=== PATIENT | male | born 1960 | race Caucasian/White ===

== ENCOUNTER 2018-07-18 20:22 | Inpatient (IN) | payer BC, MEDICARE, OTHER ==
[~2018-07-18] VITALS: Ht 182.9 cm; Wt 87.1 kg
[2018-07-18] MEDS ORDERED: DOCU100C28 PO (20:56)
[2018-07-18] MEDS ORDERED: CLOT15CR4 TP (20:56)
[2018-07-18] MEDS ORDERED: TRAM50TA PO (20:56)
[2018-07-18] MEDS ORDERED: MAG355OR11 PO (20:56)
[2018-07-18] MEDS ORDERED: CLON0.1T PO (20:56)
[2018-07-18] MEDS ORDERED: THIA100T43 PO (20:56)
[2018-07-18] MEDS ORDERED: CHOL100013 PO (20:56)
[2018-07-18] MEDS ORDERED: FOLI1TAB16 PO (20:56)
[2018-07-18] MEDS ORDERED: LISI2.5T PO (20:56)
[2018-07-18] MEDS ORDERED: TRAZ-86 PO (20:56)
[2018-07-18] MEDS ORDERED: LINA290C PO (20:56)
[2018-07-18] MEDS ORDERED: HYDR50TA PO (20:56)
[2018-07-18] MEDS ORDERED: CAPS60CR2 TP (20:56)
[2018-07-18] MEDS ORDERED: CARB1TAB2 PO (20:56)
[2018-07-18] MEDS ORDERED: CARB1TAB22 PO (20:56)
[2018-07-18] MEDS ORDERED: ACET500T68 PO (20:56)
[2018-07-18] MEDS ORDERED: FAMO20TA5 PO (20:56)
[2018-07-18] MEDS ORDERED: QUET200T4 PO (20:56)
[2018-07-18] MEDS ORDERED: LAMO200T2 PO (20:56)
[2018-07-18] MEDS ORDERED: DULO60CA6 PO (20:56)
[2018-07-18] MEDS ORDERED: MULT-114 PO (20:56)
[2018-07-18] MEDS ORDERED: METF500T16 PO (20:56)
[2018-07-18] MEDS ORDERED: BUSP15TA PO (20:56)
[2018-07-18] MEDS ORDERED: OMEG-33 PO (20:56)
[2018-07-18] MEDS ORDERED: ATOR40TA59 PO (20:56)
[2018-07-18] MEDS ORDERED: MIRT7.5T8 PO (20:56)
[2018-07-18] MEDS ORDERED: BUSP5TAB PO (20:56)
[2018-07-18] MEDS ORDERED: QUET25TA PO (20:56)
[2018-07-18] MEDS ORDERED: ASPI-630 PO (20:56)
[2018-07-18] MEDS ORDERED: PROP10TA PO (20:56)
[2018-07-18] MEDS ORDERED: ATOR20TA58 PO (22:00)
[2018-07-18] MEDS ORDERED: MAG HYDROX/AL HYDROX/SIMETH 30 ML ORAL.SUSP PO PRN (23:00)
[2018-07-18] MEDS ORDERED: cloNIDine HCL 0.1 MG TABLET PO PRN (23:00)
[2018-07-18] MEDS ORDERED: CLOTRIMAZOLE 1% TOPICAL CREAM 30GM TUBE. TP PRN (23:00)
[2018-07-18] MEDS ORDERED: traMADol 50 MG TABLET PO PRN (23:00)
[2018-07-18] MEDS ORDERED: ACETAMINOPHEN 500 MG TABLET PO PRN (23:00)
[2018-07-18] MEDS ORDERED: DOCUSATE SODIUM 100 MG CAPSULE PO PRN (23:00)
[2018-07-18] MEDS ORDERED: MAGNESIUM HYDROXIDE 2,400 MG/30 ML ORAL.SUSP. PO PRN (23:00)
[2018-07-18] MEDS ORDERED: QUEtiapine 25 MG TABLET. PO PRN (23:00)
[2018-07-18] MEDS ORDERED: CAPSAICIN 0.025% TOPICAL CREAM 60GM TUBE. TP PRN (23:00)
[2018-07-18 23:12] VITALS: BP 116/80
[2018-07-18] MEDS: PROPRANOLOL 10 MG TABLET. PO SCH ×2 (23:30→23:46)
[2018-07-18] MEDS: ATORVASTATIN CALCIUM 20 MG TABLET PO SCH (23:45)
[2018-07-18] MEDS: busPIRone 5 MG TABLET. PO SCH ×2 (23:45)
[2018-07-18] MEDS: traZODone 100 MG TABLET. PO PRN (23:46)
[2018-07-18] MEDS: CARBIDOPA/LEVODOPA 25/100MG TABLET PO SCH (23:46)
[2018-07-18] MEDS: lamoTRIgine 100 MG TABLET. PO SCH (23:46)
[2018-07-18] MEDS: DULoxetine HCL 60 MG CAPSULE.DR PO SCH (23:46)
[2018-07-18] MEDS: MIRTAZAPINE 7.5 MG TABLET. PO SCH (23:46)
[2018-07-18] MEDS: FAMOTIDINE 20 MG TABLET PO SCH (23:46)
[2018-07-18] MEDS: QUEtiapine 100 MG TABLET. PO SCH (23:48)
--- NOTE | 2018-07-19 00:13 | NUR ---
Admission Note with Justification for Admission to [facility] Patient admitted to [facility] for protective oversight for emergency stabilization of acute psychiatric crisis. Pt admitted from: [facility] ER Mode of arrival: Secure Transport Accompanied By: Secure Transport Precipitating behaviors that initiated intake and admission: SI, attempted to jump through a window at his nursing facility in an attempt to jump. Description of failure of out patient attempts at stabilization in previous setting list behavior and medication trials: medication adjustments, multiple previous inpatient psych stays at various facilities. Behaviors and assessment findings upon admission: Pt A/O x4, calm, pleasant, and answering questions appropriately. Pt states that he is unhappy at his current facility. He reports that he has spoken with facility staff about what he feels would make him happier at this facility, but the person he talked to was no longer working there after he returned from his inpatient psych stay at [facility]. He also reports his mind has been racing since being taken off of Klonopin and placed on Vistaril. His attempt to jump through the window at his facility, per his report, was to stop the racing thoughts and his ffeling Plan: Admit for protective oversight for adjustment and stabilization of medications, behaviors and mood. Intense treatment regimen including groups, medication adjustments, therapy, consistent regimen for ADL's, self care, and sleep hygiene. Daily monitoring by Inpatient staff, Psychiatry, and Medical Physician. Addendum: 07/19/18 at 0021 by JOSE LOO RN feeling of unhappiness. Pt states that he now knows this was not the best way in which to handle the situation.
[2018-07-19 06:24] VITALS: BP 101/62
[2018-07-19 07:54] LABS: BASO % 1 % (0-3); EOS # 0.2 x10^3/uL (0.0-0.7); EOS % 3 % (0-3); HEMATOCRIT 45.3 % (39.0-53.0); HEMOGLOBIN 15.9 g/dL (13.0-17.5); LYMPH % 29 % (24-48); MEAN CORPUSCULAR HEMOGLOBIN 32 pg (25-35); MEAN CORPUSCULAR HGB CONC 35 g/dL (31-37); MEAN CORPUSCULAR VOLUME 91 fL (79-100); MONO # 0.5 x10^3/uL (0.0-1.1); MONO % 7 % (0-9); NEUT # 4.3 x10^3uL (1.8-7.7); NEUT % 61 % (31-73); PLATELET COUNT 211 x10^3/uL (140-400); RED BLOOD COUNT 5.01 x10^6/uL (4.30-5.70); RED CELL DISTRIBUTION WIDTH 12.9 % (11.5-14.5); WHITE BLOOD COUNT 7.1 x10^3/uL (4.0-11.0)
[2018-07-19] MEDS: metFORMIN 500 MG TABLET PO SCH ×2 (08:00→18:06)
[2018-07-19 08:03] LABS: ALBUMIN 3.9 g/dL (3.4-5.0); ALBUMIN/GLOBULIN RATIO 1.2 (1.0-1.7); CREATININE 0.9 mg/dL (0.7-1.3); MAGNESIUM 1.9 mg/dL (1.8-2.4); POTASSIUM 3.6 mmol/L (3.5-5.1); TOTAL BILIRUBIN 0.4 mg/dL (0.2-1.0); TOTAL PROTEIN 7.1 g/dL (6.4-8.2)
[2018-07-19] MEDS: LISINOPRIL 2.5 MG TABLET PO SCH (08:04)
[2018-07-19] MEDS: FAMOTIDINE 20 MG TABLET PO SCH ×2 (08:04→20:12)
[2018-07-19] MEDS: PROPRANOLOL 10 MG TABLET. PO SCH ×2 (08:04→18:06)
[2018-07-19] MEDS: DULoxetine HCL 60 MG CAPSULE.DR PO SCH ×2 (08:05→20:12)
[2018-07-19] MEDS: MULTIVITAMIN with MINERAL TABLET. PO SCH (08:05)
[2018-07-19] MEDS: THIAMINE 100 MG TABLET. PO SCH (08:05)
[2018-07-19] MEDS: busPIRone 5 MG TABLET. PO SCH ×4 (08:05→20:12)
[2018-07-19] MEDS: CHOLECALCIFEROL (VITAMIN D3) 1,000 UNIT TABLET PO SCH (08:05)
[2018-07-19] MEDS: ASPIRIN 81 MG TAB.CHEW PO SCH (08:05)
[2018-07-19] MEDS: OMEGA-3 FATTY ACIDS/FISH OIL 1,000 MG CAPSULE. PO SCH (08:05)
[2018-07-19] MEDS: FOLIC ACID 1 MG TABLET PO SCH (08:05)
[2018-07-19] MEDS: LINACLOTIDE 145 MCG CAPSULE. PO SCH (08:08)
[2018-07-19] MEDS ORDERED: PROPRANOLOL HCL 10 MG PO SCH (09:00)
[2018-07-19] MEDS ORDERED: BUSPIRONE HCL 5 MG PO SCH (09:00)
[2018-07-19] MEDS ORDERED: NON FORMULARY ITEM (Duloxetine Hcl (Cymbalta) 60 MG) PO SCH (09:00)
[2018-07-19] MEDS ORDERED: BUSPIRONE HCL 15 MG PO SCH (09:00)
[2018-07-19] MEDS ORDERED: FAMOTIDINE 20 MG PO SCH (09:00)
[2018-07-19] MEDS ORDERED: CARBIDOPA/LEVODOPA 25/100MG TABLET PO SCH ×2 (09:00→21:00)
[2018-07-19] MEDS: hydrOXYzine HCL 25 MG TABLET PO PRN (09:26)
--- NOTE | 2018-07-19 10:30 | NUR ---
Behavior Intervention Response and Plan: BIRP Note: Behavior: Assumed Care of patient, patient located in Dining Room at shift change. Patient exhibited the following behavior Attention Seeking, Medication Seeking, Compliant. Brief assessment on rounds of vital signs, medication needs, lab studies, and pain. Treatment plan problems . Intervention: Patient assessed and the following interventions initiated safety checks 15 Minute Checks Cognitive Assessment , Head to toe Assessment , Medications. Response: After interactions and interventions patient responded in the following manner, Somatic , Anxious, compliant. Continue to assess behaviors and condition will continue to monitor throughout the shift as needed. Patient educated on ADL's, and hand hygiene. 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 Continue to assess patient for changes in above assessment. Monitor for medication needs, pain, and safety concerns. Hourly rounding performed to ensure safe environment.
[2018-07-19] MEDS: CARBIDOPA/LEVODOPA 25/100MG TABLET PO SCH ×3 (13:21→20:12)
[2018-07-19] MEDS: LORazepam 0.5 MG TABLET PO PRN ×2 (13:22→18:07)
[2018-07-19 13:30] LABS: THYROID STIM HORMONE (TSH) 2.272 uIU/mL (0.358-3.740)
[2018-07-19 15:58] VITALS: BP 109/76
--- NOTE | 2018-07-19 16:15 | NUR ---
pt up adl to meals. pt c/o severe anxiety. Dr alegria notified. order received for Ativan prn. Some relief noted.
[2018-07-19 18:10] LABS: THYROXINE 6.7 ug/dL (4.5-12.0)
[2018-07-19] MEDS: lamoTRIgine 100 MG TABLET. PO SCH (20:11)
[2018-07-19] MEDS: MIRTAZAPINE 7.5 MG TABLET. PO SCH (20:11)
[2018-07-19] MEDS: QUEtiapine 100 MG TABLET. PO SCH (20:12)
[2018-07-19] MEDS: ATORVASTATIN CALCIUM 20 MG TABLET PO SCH (20:12)
[2018-07-19] MEDS: traZODone 100 MG TABLET. PO PRN (20:13)
[2018-07-19] MEDS ORDERED: QUETIAPINE FUMARATE 200 MG PO SCH (21:00)
[2018-07-19] MEDS ORDERED: MIRTAZAPINE 7.5 MG TABLET. PO SCH (21:00)
[2018-07-19] MEDS ORDERED: ATORVASTATIN CALCIUM 20 MG TABLET PO SCH (21:00)
[2018-07-19] MEDS ORDERED: NON FORMULARY ITEM (Lamotrigine 200 MG) PO SCH (21:00)
--- NOTE | 2018-07-19 22:09 | NUR ---
Pt sitting in day room at shift change, interacting with peer. Pt calm, social, and pleasant this evening, denies anxiety at this time. Pt cooperative with assessment and compliant with medications.
--- NOTE | 2018-07-19 22:30 | CONS ---
DATE OF CONSULTATION: 07/19/2018 REASON FOR CONSULTATION: Medical management. HISTORY OF PRESENT ILLNESS: The patient is a 58-year-old male patient, a resident at [facility] [place], who apparently attempted suicide by jumping out of the window at [facility] [place]. The patient broke the window, but did not go all the way through. He reports pain in his head and his neck. He has few lacerations. By the time he arrived to the Emergency Room of [facility], he continued to be suicidal and he reports that he has attempted in the past. He has required inpatient psychiatric stabilization before and apparently was referred to [facility] for inpatient psychiatric stabilization. PAST MEDICAL HISTORY: Significant for Parkinson's disease, hyperlipidemia, hypertension and apparently depression with multiple suicidal ideation before. PAST SURGICAL HISTORY: Brain stimulator placement in 2008. He apparently has also arteriography; however, the patient did not remember why, has also a history of hernia repair. FAMILY HISTORY: His father has of chronic obstructive pulmonary disease. Mother has had heart disease and diabetes mellitus. SOCIAL HISTORY: He apparently is , currently lives in [facility] [place]. He used to live with his and his children. He apparently has obstructive sleep apnea and he has CPAP and/or BiPAP, requires a walker. He apparently has been a former smoker, started at the age of 17, stopped about the age of 19. He drinks 1-2 beers per year. He is currently on disability. ALLERGIES: HE IS ALLERGIC TO IODINATED CONTRAST, ORAL AND IV DYE AND PREDNISOLONE. MEDICATIONS: He is currently on following medications: He is on atorvastatin calcium 20 mg at bedtime, omega-3 fatty acid, fish oil 1000 mg soft gel daily, clonidine 0.1 mg twice a day, propranolol 10 mg twice a day, lisinopril 2.5 mg once a day, aspirin 81 mg once a day, tramadol 50 mg every 6 hours as needed, Tylenol 500 mg every 6 hours, lamotrigine 200 mg at bedtime, duloxetine 60 mg twice a day, mirtazapine 7.5 mg at bedtime, trazodone 100 mg at bedtime, Seroquel 200 mg at bedtime, Seroquel 12.5 mg every 8 hours. He is on buspirone 5 mg 3 times a day, hydroxyzine 50 mg every 8 hours, carbidopa/levodopa 25/100 two tablets at bedtime. He is on carbidopa/levodopa 1-1/2 tablet 3 times a day. He is on Maalox 30 mL every 4 hours as needed, Colace 100 mg twice a day, famotidine 20 mg twice a day, Linzess 290 mcg p.o. daily, metformin 500 mg twice a day, clotrimazole cream apply topically twice a day, capsaicin cream applied topically every 8 hours and folic acid 1 mg once a day, thiamine 100 mg once a day, cholecalciferol 1000 international unit once a day, multivitamin with tablet once a day with mineral once a day. REVIEW OF SYSTEMS: As per history of present illness. PHYSICAL EXAMINATION GENERAL: When I saw him this afternoon, he was sitting comfortably in his chair, eating his dinner, in no apparent distress. He was slightly pale, but no jaundice, cyanosis or thyromegaly. No jugular venous distention. No limb edema. VITAL SIGNS: His heart rate was 89, blood pressure was 109/76, temperature was 98.2, respiratory rate was 18 and oxygen saturation was 96%. HEAD, EYES, EARS, NOSE AND THROAT: Showed normocephalic, atraumatic. NECK: Supple. HEART: Showed normal first and second sounds. No gallop or murmur. CHEST: Clear to auscultation. No crepitation or rhonchi. ABDOMEN: Distended, soft, nontender. NEUROLOGIC: He was awake, alert, responding appropriately. All cranial nerves are intact. He has parkinsonian features. He is able to move all his extremities. He is able to walk with a walker. LABORATORY DATA: His lab work showed a serum sodium 142, potassium 3.6, chloride 103, bicarbonate 28, anion gap of 11, BUN 19, creatinine 0.9, estimated GFR was 87 mL per minute, his glucose 148, calcium was 9, magnesium was 1.9. Serum iron was 79, TIBC was 291 and iron saturation was 27. His total bilirubin, AST, ALT, alkaline phosphatase were normal. Total protein was 7.1, albumin was 3.9. Serum triglyceride were 89, total cholesterol was 84, LDL cholesterol was 23, VLDL was 17, HDL cholesterol was 44 and ratio 1. His TSH was 2.272. His white cell count was 7100, hemoglobin 15.9, hematocrit 44, MCV 91, and platelet count 211,000. IMPRESSION: In summary, this is a 58-year-old male patient with a past medical history significant for depression and Parkinson's disease, who was seen at [facility] Emergency Room after a suicide attempt. The patient tried to jump through the window at [facility] [place] in attempt to commit suicide. He broke the window, but did not go it all the way through. He reports pain in his head and his neck. He did sustain few lacerations and apparently he continued to be suicidal even after arrival to the Emergency Room. He apparently has had multiple attempts before, total of 11 in the past and has had psychiatric treatment in the past. [facility] for [facility] stabilization. Medically, he has multiple medical problems including Parkinson's disease, hypertension, hyperlipidemia, gastroesophageal reflux disease, chronic constipation; however, all his vital signs and his lab works are all seemed to be within acceptable range. He also has diabetes that seems to be reasonably controlled. His hemoglobin A1c is still pending at the time of this dictation. PLAN: My plan is obviously to review all his labs, are still pending and make any necessary recommendation. Thank you, Dr. Bey for allowing me to participate in the care of this patient. GRETEL TEJADA MD DR: OZ/parmjit JOB#: [id number] / [id number]
--- NOTE | 2018-07-19 22:41 | PDOC ---
Exam Note: Kal Note: Please also refer to the separate dictated note~for this date of service dictated separately. Discussed the patient with Nursing staff reviewed the chart.~Reviewed interim history and current functioning. Reviewed vital signs,~ Labs/ Radiology~and current medications noted below. Continue current treatment with the changes noted in the dictated addendum note Assessment: Vital Signs: Vital Signs Date Time Temp Pulse Resp B/P (MAP) Pulse Ox O2 Delivery O2 Flow Rate FiO2 07/19/18 18:06 89 109/76 07/19/18 15:58 98.2 18 96 07/19/18 06:24 Room Air Labs: Laboratory Tests Test 07/19/18 07:18 07/19/18 07:22 07/19/18 12:02 07/19/18 17:08 White Blood Count 7.1 x10^3/uL (4.0-11.0) Red Blood Count 5.01 x10^6/uL (4.30-5.70) Hemoglobin 15.9 g/dL (13.0-17.5) Hematocrit 45.3 % (39.0-53.0) Mean Corpuscular Volume 91 fL (79-100) Mean Corpuscular Hemoglobin 32 pg (25-35) Mean Corpuscular Hemoglobin Concent 35 g/dL (31-37) Red Cell Distribution Width 12.9 % (11.5-14.5) Platelet Count 211 x10^3/uL (140-400) Neutrophils (%) (Auto) 61 % (31-73) Lymphocytes (%) (Auto) 29 % (24-48) Monocytes (%) (Auto) 7 % (0-9) Eosinophils (%) (Auto) 3 % (0-3) Basophils (%) (Auto) 1 % (0-3) Neutrophils # (Auto) 4.3 x10^3uL (1.8-7.7) Lymphocytes # (Auto) 2.0 x10^3/uL (1.0-4.8) Monocytes # (Auto) 0.5 x10^3/uL (0.0-1.1) Eosinophils # (Auto) 0.2 x10^3/uL (0.0-0.7) Basophils # (Auto) 0.0 x10^3/uL (0.0-0.2) Sodium Level 142 mmol/L (136-145) Potassium Level 3.6 mmol/L (3.5-5.1) Chloride Level 103 mmol/L (98-107) Carbon Dioxide Level 28 mmol/L (21-32) Anion Gap 11 (6-14) Blood Urea Nitrogen 19 mg/dL (8-26) Creatinine 0.9 mg/dL (0.7-1.3) Estimated GFR (Cockcroft-Gault) 87.0 BUN/Creatinine Ratio 21 (6-20) H Glucose Level 148 mg/dL (70-99) H Calcium Level 9.0 mg/dL (8.5-10.1) Magnesium Level 1.9 mg/dL (1.8-2.4) Iron Level 79 ug/dL (65-175) Total Iron Binding Capacity 291 ug/dL (250-450) Iron Saturation 27 % (15-34) Total Bilirubin 0.4 mg/dL (0.2-1.0) Aspartate Amino Transferase (AST) 16 U/L (15-37) Alanine Aminotransferase (ALT) 32 U/L (16-63) Alkaline Phosphatase 83 U/L (46-116) Total Protein 7.1 g/dL (6.4-8.2) Albumin 3.9 g/dL (3.4-5.0) Albumin/Globulin Ratio 1.2 (1.0-1.7) Triglycerides Level 89 mg/dL (0-150) Cholesterol Level 84 mg/dL (0-200) LDL Cholesterol, Calculated 23 mg/dL (0-100) VLDL Cholesterol, Calculated 17 mg/dL (0-40) Non-HDL Cholesterol Calculated 40 mg/dL (0-129) HDL Cholesterol 44 mg/dL (40-60) Cholesterol/HDL Ratio 1.0 25-Hydroxy Vitamin D Total 29.8 ng/mL (30-100) L Thyroid Stimulating Hormone (TSH) 2.272 uIU/mL (0.358-3.740) Thyroxine (T4) 6.7 ug/dL (4.5-12.0) Total Triiodothyronine (TT3) 135 ng/dL (71-180) Treponema pallidum Antibody Nonreactive (Nonreactive) Glucose (Fingerstick) 139 mg/dL (70-99) H 123 mg/dL (70-99) H 121 mg/dL (70-99) H Current Medications: Meds: Current Medications Mirtazapine (Remeron) 7.5 mg HS PO ; Start 07/19/18 at 21:00; Stop 07/19/18 at 21:00; Status DC Non-Formulary Medication (Buspirone Hcl ) 5 mg TID PO ; Start 07/19/18 at 09:00 ; Stop 07/19/18 at 09:00; Status DC Non-Formulary Medication (Buspirone Hcl ) 15 mg TID PO ; Start 07/19/18 at 09:00 ; Stop 07/19/18 at 09:00; Status DC Non-Formulary Medication (Duloxetine Hcl (Cymbalta)) 60 mg BID PO ; Start at 09:00; Stop 07/19/18 at 09:00; Status DC Hydroxyzine HCl (Atarax) 50 mg PRN Q8HRS PRN PO ANXIETY / AGITATION Last administered on 07/19/18at 09:26; Start 07/18/18 at 23:00 Non-Formulary Medication (Lamotrigine ) 200 mg HS PO ; Start 07/19/18 at 21:00; Stop 07/19/18 at 21:00; Status DC Quetiapine Fumarate (SEROquel) 12.5 mg PRN Q8HRS PRN PO ANXIETY / AGITATION; Start 07/18/18 at 23:00 Non-Formulary Medication (Quetiapine Fumarate (Seroquel)) 200 mg HS PO ; Start 07/19/18 at 21:00; Stop 07/19/18 at 21:00; Status DC Trazodone HCl (Desyrel) 100 mg PRN QHS PRN PO INSOMNIA Last administered on at 20:13; Start 07/18/18 at 23:00 Atorvastatin Calcium (Lipitor) 20 mg QHS PO ; Start 07/19/18 at 21:00; Stop at 21:00; Status DC Carbidopa/Levodopa (Sinemet 25/100) 1.5 tab TID PO Last administered on at 08:05; Start 07/19/18 at 09:00; Stop 07/19/18 at 11:35; Status DC Carbidopa/Levodopa (Sinemet 25/100) 2 tab HS PO ; Start 07/19/18 at 21:00; Stop 07/19/18 at 21:00; Status DC Clonidine HCl (Catapres) 0.1 mg PRN BID PRN PO HYPERTENSION, SEE COMMENTS; Start 07/18/18 at 23:00 Tramadol HCl (Ultram) 50 mg PRN Q6HRS PRN PO PAIN; Start 07/18/18 at 23:00 Acetaminophen (Tylenol) 500 mg PRN Q6HRS PRN PO PAIN / TEMP; Start 07/18/18 at 23:00 Aspirin (Children'S Aspirin) 81 mg DAILYWBKFT PO Last administered on at 08:05; Start 07/19/18 at 08:00 Capsaicin (Zostrix) 1 peytno PRN Q8HRS PRN TP Joint Pain; Start 07/18/18 at 23:00 Vitamin D (Vitamin D3) 1,000 unit DAILY PO Last administered on 07/19/18at 08:05 ; Start 07/19/18 at 09:00 Clotrimazole (Lotrimin) 1 peyton PRN BID PRN TP RASH; Start 07/18/18 at 23:00 Docusate Sodium (Colace) 100 mg PRN BID PRN PO CONSTIPATION; Start 07/18/18 at 23:00 Non-Formulary Medication (Famotidine ) 20 mg BID PO ; Start 07/19/18 at 09:00; Stop 07/19/18 at 09:00; Status DC Folic Acid (Folic Acid) 1 mg DAILY PO Last administered on 07/19/18at 08:05; Start 07/19/18 at 09:00 Linaclotide (Linzess) 290 mcg DAILY07 PO Last administered on 07/19/18at 08:08; Start 07/19/18 at 07:00 Lisinopril (Prinivil) 2.5 mg DAILY PO Last administered on 07/19/18at 08:04; Start 07/19/18 at 09:00 Al Hydroxide/Mg Hydroxide (Mylanta Plus Xs) 30 ml PRN Q4HRS PRN PO DYSPEPSIA; Start 07/18/18 at 23:00 Metformin HCl (Glucophage) 500 mg BIDWMEALS PO Last administered on 07/19/18at 18:06; Start 07/19/18 at 08:00 Multivitamins/ Calcium (Thera-M Plus) 1 tab DAILY PO Last administered on 08:05; Start 07/19/18 at 09:00 Fish Oil (Fish Oil) 1,000 mg DAILY PO Last administered on 07/19/18 08:05; Start 07/19/18 at 09:00 Non-Formulary Medication (Propranolol Hcl ) 10 mg BID PO ; Start 07/19/18 at 09: 00; Stop 07/19/18 at 09:00; Status DC Thiamine HCl (Vitamin B-1) 100 mg DAILY PO Last administered on 07/19/18 08:05 ; Start 07/19/18 at 09:00 Magnesium Hydroxide (Milk Of Magnesia) 2,400 mg PRN QHS PRN PO CONSTIPATION; Start 07/18/18 at 23:00 Atorvastatin Calcium (Lipitor) 20 mg QHS PO Last administered on 07/19/18 20: 12; Start 07/18/18 at 23:30 Carbidopa/Levodopa (Sinemet 25/100) 2 tab HS PO Last administered on 07/19/18 20:12; Start 07/18/18 at 23:30 Mirtazapine (Remeron) 7.5 mg HS PO Last administered on 07/19/18 20:11; Start 07/18/18 at 23:30 Buspirone HCl (Buspar) 5 mg TID PO Last administered on 07/19/18 08:05; Start 07/18/18 at 23:30; Stop 07/19/18 at 11:35; Status DC Buspirone HCl (Buspar) 15 mg TID PO Last administered on 07/19/18 08:06; Start 07/18/18 at 23:30; Stop 07/19/18 at 11:35; Status DC Duloxetine HCl (Cymbalta) 60 mg BID PO Last administered on 07/19/18 20:12; Start 07/18/18 at 23:30 Famotidine (Pepcid) 20 mg BID PO Last administered on 07/19/18 20:12; Start at 23:30 Lamotrigine (LaMICtal) 200 mg HS PO Last administered on 07/19/18 20:11; Start 07/18/18 at 23:30 Propranolol HCl (Inderal) 10 mg BID PO ; Start 07/18/18 at 23:30; Stop 07/18/18 at 23:54; Status DC Quetiapine Fumarate (SEROquel) 200 mg HS PO Last administered on 07/19/18 20: 12; Start 07/18/18 at 23:30 Propranolol HCl (Inderal) 10 mg BID94 PO Last administered on 07/19/18 18:06; Start 07/19/18 at 09:00 Lorazepam (Ativan) 0.25 mg PRN Q4HRS PRN PO ANXIETY / AGITATION Last administered on 07/19/18 18:07; Start 07/19/18 at 10:45 Buspirone HCl (Buspar) 20 mg TID PO Last administered on 07/19/18 20:12; Start 07/19/18 at 14:00 Carbidopa/Levodopa (Sinemet 25/100) 1.5 tab TIDWMEALS PO Last administered on 18:07; Start 07/19/18 at 12:00 Active Scripts Active Reported Atorvastatin Calcium 20 Mg Tablet 20 Mg PO QHS B-1 (Thiamine HCl) 100 Mg Tablet 100 Mg PO DAILY Cypress 3 1,000 Mg Softgel (Cypress-3 Fatty Acids/Fish Oil) 1 Each Capsule 1 Cap PO DAILY Multivitamins With Minerals (Multivitamin With Minerals) 1 Each Tablet 1 Tab PO DAILY Linzess (Linaclotide) 290 Mcg Capsule 290 Mcg PO DAILY Hydroxyzine Hcl 50 Mg Tablet 50 Mg PO PRN Q8HRS PRN Folic Acid 1 Mg Tablet 1 Mg PO DAILY Docusate Sodium 100 Mg Capsule 100 Mg PO BID PRN Clotrimazole 15 Gm Cream..g. 1 Peyton TP BID PRN Clonidine Hcl 0.1 Mg Tablet 0.1 Mg PO BID PRN Give for SBP>160 Vitamin D (Cholecalciferol (Vitamin D3)) 1,000 Unit Capsule 1,000 Unit PO DAILY Capsaicin 60 Gm Cream..g. 1 Peyton TP PRN Q8HRS PRN Aspirin 81 Mg Tab.chew 81 Mg PO DAILY Acetaminophen 500 Mg Tablet 500 Mg PO PRN Q6HRS PRN Quetiapine Fumarate 25 Mg Tablet 12.5 Mg PO PRN Q8HRS PRN Maalox Advanced Suspension (Mag Hydrox/Aluminum Hyd/Simeth) 355 Ml Oral.susp 30 Ml PO PRN Q4HRS PRN Trazodone Hcl 100 Mg Tablet 100 Mg PO HS PRN Tramadol Hcl (Tramadol HCl) 50 Mg Tablet 50 Mg PO PRN Q6HRS PRN Propranolol Hcl 10 Mg Tablet 10 Mg PO BID Mirtazapine 7.5 Mg Tablet 7.5 Mg PO HS Metformin Hcl 500 Mg Tablet 500 Mg PO BIDWMEALS Lisinopril 2.5 Mg Tablet 2.5 Mg PO DAILY Lamotrigine 200 Mg Tablet 200 Mg PO HS Famotidine 20 Mg Tablet 20 Mg PO BID Carbidopa-Levodopa 25-100 Tab (Carbidopa/Levodopa) 1 Each Tablet 1.5 Tab PO TID Sinemet 25-100 Mg Tablet (Carbidopa/Levodopa) 1 Each Tablet 2 Tab PO HS Buspirone Hcl 5 Mg Tablet 5 Mg PO TID Buspirone Hcl 15 Mg Tablet 15 Mg PO TID Seroquel (Quetiapine Fumarate) 200 Mg Tablet 200 Mg PO HS Cymbalta (Duloxetine Hcl) 60 Mg Capsule. 60 Mg PO BID I have reviewed the current psychotropics carefully including drug interactions. Risk benefit ratio favors no change other than as noted in my dictated progress note. Diagnosis: Problems: (1) Anxiety disorder (2) Major depressive disorder, recurrent episode (3) Impulse control disorder (4) Bipolar affective, mixed LUTHER WARNER MD Jul 19, 2018 22:41
[2018-07-19 23:07] LABS: HEMOGLOBIN A1C 5.3 % (4.8-5.6)
[2018-07-20] MEDS: LINACLOTIDE 145 MCG CAPSULE. PO SCH (04:54)
[2018-07-20 05:23] VITALS: BP 113/80
[2018-07-20] MEDS: LORazepam 0.5 MG TABLET PO PRN ×3 (06:37→18:14)
--- NOTE | 2018-07-20 06:41 | NUR ---
Pt c/o feeling anxious this morning upon wakening. PRN Ativan administered as ordered at this time.
[2018-07-20] MEDS: FAMOTIDINE 20 MG TABLET PO SCH ×2 (08:07→19:59)
[2018-07-20] MEDS: LISINOPRIL 2.5 MG TABLET PO SCH (08:07)
[2018-07-20] MEDS: busPIRone 5 MG TABLET. PO SCH ×3 (08:07→19:56)
[2018-07-20] MEDS: CHOLECALCIFEROL (VITAMIN D3) 1,000 UNIT TABLET PO SCH (08:08)
[2018-07-20] MEDS: CARBIDOPA/LEVODOPA 25/100MG TABLET PO SCH ×4 (08:08→19:59)
[2018-07-20] MEDS: metFORMIN 500 MG TABLET PO SCH ×2 (08:08→18:13)
[2018-07-20] MEDS: DULoxetine HCL 60 MG CAPSULE.DR PO SCH ×2 (08:08→19:56)
[2018-07-20] MEDS: OMEGA-3 FATTY ACIDS/FISH OIL 1,000 MG CAPSULE. PO SCH (08:08)
[2018-07-20] MEDS: MULTIVITAMIN with MINERAL TABLET. PO SCH (08:08)
[2018-07-20] MEDS: THIAMINE 100 MG TABLET. PO SCH (08:08)
[2018-07-20] MEDS: ASPIRIN 81 MG TAB.CHEW PO SCH (08:08)
[2018-07-20] MEDS: FOLIC ACID 1 MG TABLET PO SCH (08:08)
[2018-07-20] MEDS: PROPRANOLOL 10 MG TABLET. PO SCH ×2 (08:08→18:13)
--- NOTE | 2018-07-20 10:02 | NUR ---
Behavior Intervention Response and Plan: BIRP Note: Behavior: Assumed Care of patient, patient located in Dining Room at shift change. Patient exhibited the following behavior Attention Seeking, Medication Seeking, Compliant. Brief assessment on rounds of vital signs, medication needs, lab studies, and pain. Treatment plan problems . Intervention: Patient assessed and the following interventions initiated safety checks 15 Minute Checks Cognitive Assessment , Head to toe Assessment , Medications. Response: After interactions and interventions patient responded in the following manner, Somatic , Anxious, compliant. Continue to assess behaviors and condition will continue to monitor throughout the shift as needed. Patient educated on ADL's, and hand hygiene. 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 Continue to assess patient for changes in above assessment. Monitor for medication needs, pain, and safety concerns. Hourly rounding performed to ensure safe environment.
[2018-07-20 15:41] VITALS: BP 119/84
--- NOTE | 2018-07-20 19:18 | NUR ---
pt up adl to meals. c/o intermittent anxiety. Ativan given at all meals. compliant with meds and cares. Occasionally gets obsessed with one thing such as changing his clothes. will ask several staff members the same thing.
[2018-07-20] MEDS: MIRTAZAPINE 7.5 MG TABLET. PO SCH (19:56)
[2018-07-20] MEDS: traZODone 100 MG TABLET. PO PRN (19:59)
[2018-07-20] MEDS: ATORVASTATIN CALCIUM 20 MG TABLET PO SCH (19:59)
[2018-07-20] MEDS: lamoTRIgine 100 MG TABLET. PO SCH (19:59)
[2018-07-20] MEDS: QUEtiapine 100 MG TABLET. PO SCH (19:59)
--- NOTE | 2018-07-20 20:12 | HP ---
ADMIT DATE: 07/19/2018 This is a late entry for date of service 07/19/2018 and covers elements not covered in my initial note. I met with the patient the evening of 07/19/2018 for this evaluation. IDENTIFYING DATA: The patient is a 58-year-old male who is referred from [facility] by his primary care physician/psychiatrist on account of worsening symptoms of depression within the context of his Parkinson's disease and multiple suicide attempts in the past. More recently, the patient had been having worsening symptoms of depression, anxiety with fleeting suicidal ideation and past history of homicidal ideation towards his and children. He had failed outpatient psychiatric interventions, referred for inpatient psychiatric stabilization. CHIEF COMPLAINT: "I've been treated for depression. I've made multiple suicide attempts. Dr. Lenz at [facility] diagnosed with Parkinson's. I've never been manic." Some of this was in response to specific questions regarding his history by myself. HISTORY OF PRESENT ILLNESS: The patient has a long history of Parkinson's disease, starting around age 44, about 14 years ago. He has brain stimulators in place for this. He also has a long history of depression, multiple suicide attempts and repeated psychiatric hospitalizations on the psychiatry service at [facility]. Recently, he has been getting more depressed, hopeless, helpless, worthless, anxious, irritable. He has failed outpatient psychiatric interventions resulting in this referral. No clear history of manic episodes. PAST PSYCHIATRIC HISTORY: As above. MEDICAL HISTORY: Parkinson's disease, short-term memory loss, diabetes mellitus, hypertension, hyperlipidemia, history of deep brain stimulator placement for Parkinson's, sleep apnea, GERD, ulcerative colitis, chronic constipation, chronic right knee pain. CODE STATUS: DNR. ALLERGIES: PREDNISONE and CONTRAST DYE. Diet is regular. Accu-Cheks daily. Takes medications whole. Ambulates with walker. CURRENT PSYCHOTROPICS: Inderal 10 mg b.i.d., Seroquel 200 mg at bedtime, plus 12.5 mg q. 8 hours p.r.n., Lamictal 200 mg at bedtime, Cymbalta 60 mg b.i.d., BuSpar 20 mg t.i.d., Remeron 7.5 mg at bedtime, trazodone 100 mg at bedtime p.r.n., hydroxyzine 50 mg q. 8 hours p.r.n. Ativan 0.25 mg q. 4 hours p.r.n., was initiated after the patient's admission here on account of marked anxiety and he has done little better with this. Vitamin D low at 29.8. FAMILY HISTORY: Noncontributory other than for Parkinson's, but not at such an early age that he developed it at. SOCIAL HISTORY: The patient had been living at [facility], but apparently he had to be in the level 2 facility and has been at [facility] for some time. Family is involved in his care, but he is unable to function at home and that is what prompted the initial admission to [facility]. No alcohol or drug abuse, physical, sexual or elder abuse history is noted. Not known to be a perpetrator. REACTION TO HOSPITALIZATION: The patient accepting of it. ASSETS: Supportive family, stable living at the long term. MENTAL STATUS EXAM: The patient was seen individually evening of 07/19/2018. He is oriented to himself and situation. Speech has some latency, coherent. Abstraction fair, computation impaired, language function intact. Attention span somewhat short. He does have some short-term memory deficits, but reasonably oriented. No active suicidal or homicidal ideation. LABORATORY DATA: Reviewed. IMPRESSION: Major depressive disorder, recurrent with rule out psychotic features; anxiety disorder, unspecified; rule out bipolar 2 disorder, depressed; impulse control disorder. Rest as above. PLAN: Admit to geropsychiatry unit at [facility]. I will see the patient daily individually from a psychiatric standpoint, medical followup with Dr. Nugent. Continue the patient on his current psychotropics. Obtain past psychiatric records from [facility]. May consider increasing the Lamictal and thereafter, the Seroquel as well. We will make further determinations post baseline assessment. MAN Priya WARNER MD DR: ALMA DELIA/parmjit JOB#: [id number] / [id number]
--- NOTE | 2018-07-20 21:35 | PDOC ---
Exam Note: Kal Note: Please also refer to the separate dictated note~for this date of service dictated separately.~Patient seen individually. Discussed the patient with Nursing staff reviewed the chart.~Reviewed interim history and current functioning. Reviewed vital signs,~Labs/ Radiology~and current medications noted below. Continue current treatment with the changes noted in the dictated addendum note Assessment: Vital Signs: Vital Signs Date Time Temp Pulse Resp B/P (MAP) Pulse Ox O2 Delivery O2 Flow Rate FiO2 07/20/18 18:13 94 119/84 07/20/18 15:41 98.0 18 97 07/19/18 06:24 Room Air I&O Intake and Output 07/20/18 06:59 Intake Total 1200 ml Balance 1200 ml Intake Oral 1200 ml # Voids 1 Labs: Laboratory Tests Test 07/20/18 07:15 07/20/18 16:23 Glucose (Fingerstick) 131 mg/dL (70-99) H 162 mg/dL (70-99) H Current Medications: Meds: Current Medications Mirtazapine (Remeron) 7.5 mg HS PO ; Start 07/19/18 at 21:00; Stop 07/19/18 at 21:00; Status DC Non-Formulary Medication (Buspirone Hcl ) 5 mg TID PO ; Start 07/19/18 at 09:00 ; Stop 07/19/18 at 09:00; Status DC Non-Formulary Medication (Buspirone Hcl ) 15 mg TID PO ; Start 07/19/18 at 09:00 ; Stop 07/19/18 at 09:00; Status DC Non-Formulary Medication (Duloxetine Hcl (Cymbalta)) 60 mg BID PO ; Start at 09:00; Stop 07/19/18 at 09:00; Status DC Hydroxyzine HCl (Atarax) 50 mg PRN Q8HRS PRN PO ANXIETY / AGITATION Last administered on 07/19/18at 09:26; Start 07/18/18 at 23:00 Non-Formulary Medication (Lamotrigine ) 200 mg HS PO ; Start 07/19/18 at 21:00; Stop 07/19/18 at 21:00; Status DC Quetiapine Fumarate (SEROquel) 12.5 mg PRN Q8HRS PRN PO ANXIETY / AGITATION; Start 07/18/18 at 23:00 Non-Formulary Medication (Quetiapine Fumarate (Seroquel)) 200 mg HS PO ; Start 07/19/18 at 21:00; Stop 07/19/18 at 21:00; Status DC Trazodone HCl (Desyrel) 100 mg PRN QHS PRN PO INSOMNIA Last administered on at 19:59; Start 07/18/18 at 23:00 Atorvastatin Calcium (Lipitor) 20 mg QHS PO ; Start 07/19/18 at 21:00; Stop at 21:00; Status DC Carbidopa/Levodopa (Sinemet 25/100) 1.5 tab TID PO Last administered on at 08:05; Start 07/19/18 at 09:00; Stop 07/19/18 at 11:35; Status DC Carbidopa/Levodopa (Sinemet 25/100) 2 tab HS PO ; Start 07/19/18 at 21:00; Stop 07/19/18 at 21:00; Status DC Clonidine HCl (Catapres) 0.1 mg PRN BID PRN PO HYPERTENSION, SEE COMMENTS; Start 07/18/18 at 23:00 Tramadol HCl (Ultram) 50 mg PRN Q6HRS PRN PO PAIN; Start 07/18/18 at 23:00 Acetaminophen (Tylenol) 500 mg PRN Q6HRS PRN PO PAIN / TEMP; Start 07/18/18 at 23:00 Aspirin (Children'S Aspirin) 81 mg DAILYWBKFT PO Last administered on at 08:08; Start 07/19/18 at 08:00 Capsaicin (Zostrix) 1 peyton PRN Q8HRS PRN TP Joint Pain; Start 07/18/18 at 23:00 Vitamin D (Vitamin D3) 1,000 unit DAILY PO Last administered on 07/20/18at 08:08 ; Start 07/19/18 at 09:00 Clotrimazole (Lotrimin) 1 peyton PRN BID PRN TP RASH; Start 07/18/18 at 23:00 Docusate Sodium (Colace) 100 mg PRN BID PRN PO CONSTIPATION; Start 07/18/18 at 23:00 Non-Formulary Medication (Famotidine ) 20 mg BID PO ; Start 07/19/18 at 09:00; Stop 07/19/18 at 09:00; Status DC Folic Acid (Folic Acid) 1 mg DAILY PO Last administered on 07/20/18 08:08; Start 07/19/18 at 09:00 Linaclotide (Linzess) 290 mcg DAILY07 PO Last administered on 07/20/18 04:54; Start 07/19/18 at 07:00 Lisinopril (Prinivil) 2.5 mg DAILY PO Last administered on 07/20/18 08:07; Start 07/19/18 at 09:00 Al Hydroxide/Mg Hydroxide (Mylanta Plus Xs) 30 ml PRN Q4HRS PRN PO DYSPEPSIA; Start 07/18/18 at 23:00 Metformin HCl (Glucophage) 500 mg BIDWMEALS PO Last administered on 07/20/18 18:13; Start 07/19/18 at 08:00 Multivitamins/ Calcium (Thera-M Plus) 1 tab DAILY PO Last administered on 08:08; Start 07/19/18 at 09:00 Fish Oil (Fish Oil) 1,000 mg DAILY PO Last administered on 07/20/18 08:08; Start 07/19/18 at 09:00 Non-Formulary Medication (Propranolol Hcl ) 10 mg BID PO ; Start 07/19/18 at 09: 00; Stop 07/19/18 at 09:00; Status DC Thiamine HCl (Vitamin B-1) 100 mg DAILY PO Last administered on 07/20/18 08:08 ; Start 07/19/18 at 09:00 Magnesium Hydroxide (Milk Of Magnesia) 2,400 mg PRN QHS PRN PO CONSTIPATION; Start 07/18/18 at 23:00 Atorvastatin Calcium (Lipitor) 20 mg QHS PO Last administered on 07/20/18 19: 59; Start 07/18/18 at 23:30 Carbidopa/Levodopa (Sinemet 25/100) 2 tab HS PO Last administered on 07/20/18 19:59; Start 07/18/18 at 23:30 Mirtazapine (Remeron) 7.5 mg HS PO Last administered on 07/20/18 19:56; Start 07/18/18 at 23:30 Buspirone HCl (Buspar) 5 mg TID PO Last administered on 07/19/18 08:05; Start 07/18/18 at 23:30; Stop 07/19/18 at 11:35; Status DC Buspirone HCl (Buspar) 15 mg TID PO Last administered on 07/19/18 08:06; Start 07/18/18 at 23:30; Stop 07/19/18 at 11:35; Status DC Duloxetine HCl (Cymbalta) 60 mg BID PO Last administered on 07/20/18 19:56; Start 07/18/18 at 23:30 Famotidine (Pepcid) 20 mg BID PO Last administered on 07/20/18 19:59; Start at 23:30 Lamotrigine (LaMICtal) 200 mg HS PO Last administered on 07/20/18 19:59; Start 07/18/18 at 23:30 Propranolol HCl (Inderal) 10 mg BID PO ; Start 07/18/18 at 23:30; Stop 07/18/18 at 23:54; Status DC Quetiapine Fumarate (SEROquel) 200 mg HS PO Last administered on 07/20/18 19: 59; Start 07/18/18 at 23:30 Propranolol HCl (Inderal) 10 mg BID94 PO Last administered on 07/20/18 18:13; Start 07/19/18 at 09:00 Lorazepam (Ativan) 0.25 mg PRN Q4HRS PRN PO ANXIETY / AGITATION Last administered on 07/20/18 18:14; Start 07/19/18 at 10:45 Buspirone HCl (Buspar) 20 mg TID PO Last administered on 07/20/18 19:56; Start 07/19/18 at 14:00 Carbidopa/Levodopa (Sinemet 25/100) 1.5 tab TIDWMEALS PO Last administered on 18:13; Start 07/19/18 at 12:00 Active Scripts Active Reported Atorvastatin Calcium 20 Mg Tablet 20 Mg PO QHS B-1 (Thiamine HCl) 100 Mg Tablet 100 Mg PO DAILY [place] 3 1,000 Mg Softgel ([place]-3 Fatty Acids/Fish Oil) 1 Each Capsule 1 Cap PO DAILY Multivitamins With Minerals (Multivitamin With Minerals) 1 Each Tablet 1 Tab PO DAILY Linzess (Linaclotide) 290 Mcg Capsule 290 Mcg PO DAILY Hydroxyzine Hcl 50 Mg Tablet 50 Mg PO PRN Q8HRS PRN Folic Acid 1 Mg Tablet 1 Mg PO DAILY Docusate Sodium 100 Mg Capsule 100 Mg PO BID PRN Clotrimazole 15 Gm Cream..g. 1 Peyton TP BID PRN Clonidine Hcl 0.1 Mg Tablet 0.1 Mg PO BID PRN Give for SBP>160 Vitamin D (Cholecalciferol (Vitamin D3)) 1,000 Unit Capsule 1,000 Unit PO DAILY Capsaicin 60 Gm Cream..g. 1 Peyton TP PRN Q8HRS PRN Aspirin 81 Mg Tab.chew 81 Mg PO DAILY Acetaminophen 500 Mg Tablet 500 Mg PO PRN Q6HRS PRN Quetiapine Fumarate 25 Mg Tablet 12.5 Mg PO PRN Q8HRS PRN Maalox Advanced Suspension (Mag Hydrox/Aluminum Hyd/Simeth) 355 Ml Oral.susp 30 Ml PO PRN Q4HRS PRN Trazodone Hcl 100 Mg Tablet 100 Mg PO HS PRN Tramadol Hcl (Tramadol HCl) 50 Mg Tablet 50 Mg PO PRN Q6HRS PRN Propranolol Hcl 10 Mg Tablet 10 Mg PO BID Mirtazapine 7.5 Mg Tablet 7.5 Mg PO HS Metformin Hcl 500 Mg Tablet 500 Mg PO BIDWMEALS Lisinopril 2.5 Mg Tablet 2.5 Mg PO DAILY Lamotrigine 200 Mg Tablet 200 Mg PO HS Famotidine 20 Mg Tablet 20 Mg PO BID Carbidopa-Levodopa 25-100 Tab (Carbidopa/Levodopa) 1 Each Tablet 1.5 Tab PO TID Sinemet 25-100 Mg Tablet (Carbidopa/Levodopa) 1 Each Tablet 2 Tab PO HS Buspirone Hcl 5 Mg Tablet 5 Mg PO TID Buspirone Hcl 15 Mg Tablet 15 Mg PO TID Seroquel (Quetiapine Fumarate) 200 Mg Tablet 200 Mg PO HS Cymbalta (Duloxetine Hcl) 60 Mg Capsule. 60 Mg PO BID I have reviewed the current psychotropics carefully including drug interactions. Risk benefit ratio favors no change other than as noted in my dictated progress note. Diagnosis: Problems: (1) Anxiety disorder (2) Major depressive disorder, recurrent episode (3) Impulse control disorder (4) Bipolar affective, mixed LUTHER WARNER MD Jul 20, 2018:35
[2018-07-21] MEDS: LINACLOTIDE 145 MCG CAPSULE. PO SCH (04:57)
[2018-07-21 06:08] VITALS: BP 108/66
[2018-07-21] MEDS: busPIRone 5 MG TABLET. PO SCH ×3 (07:52→20:25)
[2018-07-21] MEDS: LISINOPRIL 2.5 MG TABLET PO SCH (07:52)
[2018-07-21] MEDS: CARBIDOPA/LEVODOPA 25/100MG TABLET PO SCH ×4 (07:52→20:24)
[2018-07-21] MEDS: FAMOTIDINE 20 MG TABLET PO SCH ×2 (07:52→20:23)
[2018-07-21] MEDS: DULoxetine HCL 60 MG CAPSULE.DR PO SCH ×2 (07:52→20:25)
[2018-07-21] MEDS: CHOLECALCIFEROL (VITAMIN D3) 1,000 UNIT TABLET PO SCH (07:52)
[2018-07-21] MEDS: OMEGA-3 FATTY ACIDS/FISH OIL 1,000 MG CAPSULE. PO SCH (07:53)
[2018-07-21] MEDS: metFORMIN 500 MG TABLET PO SCH ×2 (07:53→17:00)
[2018-07-21] MEDS: THIAMINE 100 MG TABLET. PO SCH (07:53)
[2018-07-21] MEDS: PROPRANOLOL 10 MG TABLET. PO SCH ×2 (07:53→16:00)
[2018-07-21] MEDS: FOLIC ACID 1 MG TABLET PO SCH (07:53)
[2018-07-21] MEDS: ASPIRIN 81 MG TAB.CHEW PO SCH (07:54)
[2018-07-21] MEDS: MULTIVITAMIN with MINERAL TABLET. PO SCH (07:54)
[2018-07-21] MEDS: LORazepam 0.5 MG TABLET PO PRN ×3 (07:56→17:43)
--- NOTE | 2018-07-21 10:02 | NUR ---
Behavior Intervention Response and Plan: BIRP Note: Behavior: Assumed Care of patient, patient located in Dining Room at shift change. Patient exhibited the following behavior Attention Seeking, Medication Seeking, Compliant. Brief assessment on rounds of vital signs, medication needs, lab studies, and pain. Treatment plan problems . Intervention: Patient assessed and the following interventions initiated safety checks 15 Minute Checks Cognitive Assessment , Head to toe Assessment , Medications. Response: After interactions and interventions patient responded in the following manner, Somatic , Anxious, compliant. Continue to assess behaviors and condition will continue to monitor throughout the shift as needed. Patient educated on ADL's, and hand hygiene. Plan: Continue to monitor Master Treatment Plan for patient's progress toward short term goals of Decreased Anxiety, Improved Mood, wool cleaner goals to return to previous living setting vs placement. Continue to assess patient for changes in above assessment. Monitor for medication needs, pain, and safety concerns. Hourly rounding performed to ensure safe environment.
[2018-07-21 16:13] VITALS: BP 98/69
--- NOTE | 2018-07-21 18:11 | NUR ---
pt up to meals and day room adl. c/o intermittent anxiety. ativan x3. here at noon. sat in group room at lunch. pt very tearful after family left.
--- NOTE | 2018-07-21 19:42 | PDOC ---
Exam Note: Kal Note: Please also refer to the separate dictated note~for this date of service dictated separately.~Patient seen individually. Discussed the patient with Nursing staff reviewed the chart.~Reviewed interim history and current functioning. Reviewed vital signs,~Labs/ Radiology~and current medications noted below. Continue current treatment with the changes noted in the dictated addendum note Assessment: Vital Signs: Vital Signs Date Time Temp Pulse Resp B/P (MAP) Pulse Ox O2 Delivery O2 Flow Rate FiO2 07/21/18 16:13 98.1 86 18 98/69 (79) 98 07/19/18 06:24 Room Air I&O Intake and Output 07/21/18 06:59 Intake Total 1320 ml Balance 1320 ml Intake Oral 1320 ml # Voids 1 Labs: Laboratory Tests Test 07/21/18 07:18 Glucose (Fingerstick) 105 mg/dL (70-99) H Current Medications: Meds: Current Medications Mirtazapine (Remeron) 7.5 mg HS PO ; Start 07/19/18 at 21:00; Stop 07/19/18 at 21:00; Status DC Non-Formulary Medication (Buspirone Hcl ) 5 mg TID PO ; Start 07/19/18 at 09:00 ; Stop 07/19/18 at 09:00; Status DC Non-Formulary Medication (Buspirone Hcl ) 15 mg TID PO ; Start 07/19/18 at 09:00 ; Stop 07/19/18 at 09:00; Status DC Non-Formulary Medication (Duloxetine Hcl (Cymbalta)) 60 mg BID PO ; Start at 09:00; Stop 07/19/18 at 09:00; Status DC Hydroxyzine HCl (Atarax) 50 mg PRN Q8HRS PRN PO ANXIETY / AGITATION Last administered on 07/19/18at 09:26; Start 07/18/18 at 23:00 Non-Formulary Medication (Lamotrigine ) 200 mg HS PO ; Start 07/19/18 at 21:00; Stop 07/19/18 at 21:00; Status DC Quetiapine Fumarate (SEROquel) 12.5 mg PRN Q8HRS PRN PO ANXIETY / AGITATION; Start 07/18/18 at 23:00 Non-Formulary Medication (Quetiapine Fumarate (Seroquel)) 200 mg HS PO ; Start 07/19/18 at 21:00; Stop 07/19/18 at 21:00; Status DC Trazodone HCl (Desyrel) 100 mg PRN QHS PRN PO INSOMNIA Last administered on at 19:59; Start 07/18/18 at 23:00 Atorvastatin Calcium (Lipitor) 20 mg QHS PO ; Start 07/19/18 at 21:00; Stop at 21:00; Status DC Carbidopa/Levodopa (Sinemet 25/100) 1.5 tab TID PO Last administered on at 08:05; Start 07/19/18 at 09:00; Stop 07/19/18 at 11:35; Status DC Carbidopa/Levodopa (Sinemet 25/100) 2 tab HS PO ; Start 07/19/18 at 21:00; Stop 07/19/18 at 21:00; Status DC Clonidine HCl (Catapres) 0.1 mg PRN BID PRN PO HYPERTENSION, SEE COMMENTS; Start 07/18/18 at 23:00 Tramadol HCl (Ultram) 50 mg PRN Q6HRS PRN PO PAIN; Start 07/18/18 at 23:00 Acetaminophen (Tylenol) 500 mg PRN Q6HRS PRN PO PAIN / TEMP; Start 07/18/18 at 23:00 Aspirin (Children'S Aspirin) 81 mg DAILYWBKFT PO Last administered on at 07:54; Start 07/19/18 at 08:00 Capsaicin (Zostrix) 1 peyton PRN Q8HRS PRN TP Joint Pain; Start 07/18/18 at 23:00 Vitamin D (Vitamin D3) 1,000 unit DAILY PO Last administered on 07/21/18at 07:52 ; Start 07/19/18 at 09:00 Clotrimazole (Lotrimin) 1 peyton PRN BID PRN TP RASH; Start 07/18/18 at 23:00 Docusate Sodium (Colace) 100 mg PRN BID PRN PO CONSTIPATION; Start 07/18/18 at 23:00 Non-Formulary Medication (Famotidine ) 20 mg BID PO ; Start 07/19/18 at 09:00; Stop 07/19/18 at 09:00; Status DC Folic Acid (Folic Acid) 1 mg DAILY PO Last administered on 07/21/18 07:53; Start 07/19/18 at 09:00 Linaclotide (Linzess) 290 mcg DAILY07 PO Last administered on 07/21/18 04:57; Start 07/19/18 at 07:00 Lisinopril (Prinivil) 2.5 mg DAILY PO Last administered on 07/21/18 07:52; Start 07/19/18 at 09:00 Al Hydroxide/Mg Hydroxide (Mylanta Plus Xs) 30 ml PRN Q4HRS PRN PO DYSPEPSIA; Start 07/18/18 at 23:00 Metformin HCl (Glucophage) 500 mg BIDWMEALS PO Last administered on 07/21/18 17:00; Start 07/19/18 at 08:00 Multivitamins/ Calcium (Thera-M Plus) 1 tab DAILY PO Last administered on 07:54; Start 07/19/18 at 09:00 Fish Oil (Fish Oil) 1,000 mg DAILY PO Last administered on 07/21/18 07:53; Start 07/19/18 at 09:00 Non-Formulary Medication (Propranolol Hcl ) 10 mg BID PO ; Start 07/19/18 at 09: 00; Stop 07/19/18 at 09:00; Status DC Thiamine HCl (Vitamin B-1) 100 mg DAILY PO Last administered on 07/21/18 07:53 ; Start 07/19/18 at 09:00 Magnesium Hydroxide (Milk Of Magnesia) 2,400 mg PRN QHS PRN PO CONSTIPATION; Start 07/18/18 at 23:00 Atorvastatin Calcium (Lipitor) 20 mg QHS PO Last administered on 07/20/18 19: 59; Start 07/18/18 at 23:30 Carbidopa/Levodopa (Sinemet 25/100) 2 tab HS PO Last administered on 07/20/18 19:59; Start 07/18/18 at 23:30 Mirtazapine (Remeron) 7.5 mg HS PO Last administered on 07/20/18 19:56; Start 07/18/18 at 23:30 Buspirone HCl (Buspar) 5 mg TID PO Last administered on 07/19/18 08:05; Start 07/18/18 at 23:30; Stop 07/19/18 at 11:35; Status DC Buspirone HCl (Buspar) 15 mg TID PO Last administered on 07/19/18 08:06; Start 07/18/18 at 23:30; Stop 07/19/18 at 11:35; Status DC Duloxetine HCl (Cymbalta) 60 mg BID PO Last administered on 07/21/18 07:52; Start 07/18/18 at 23:30 Famotidine (Pepcid) 20 mg BID PO Last administered on 07/21/18 07:52; Start at 23:30 Lamotrigine (LaMICtal) 200 mg HS PO Last administered on 07/20/18 19:59; Start 07/18/18 at 23:30 Propranolol HCl (Inderal) 10 mg BID PO ; Start 07/18/18 at 23:30; Stop 07/18/18 at 23:54; Status DC Quetiapine Fumarate (SEROquel) 200 mg HS PO Last administered on 07/20/18 19: 59; Start 07/18/18 at 23:30 Propranolol HCl (Inderal) 10 mg BID94 PO Last administered on 07/21/18 07:53; Start 07/19/18 at 09:00 Lorazepam (Ativan) 0.25 mg PRN Q4HRS PRN PO ANXIETY / AGITATION Last administered on 07/21/18 17:43; Start 07/19/18 at 10:45 Buspirone HCl (Buspar) 20 mg TID PO Last administered on 07/21/18 12:59; Start 07/19/18 at 14:00 Carbidopa/Levodopa (Sinemet 25/100) 1.5 tab TIDWMEALS PO Last administered on 17:43; Start 07/19/18 at 12:00 Lamotrigine (LaMICtal) 25 mg HS PO ; Start 07/21/18 at 21:00 Active Scripts Active Reported Atorvastatin Calcium 20 Mg Tablet 20 Mg PO QHS B-1 (Thiamine HCl) 100 Mg Tablet 100 Mg PO DAILY [place] 3 1,000 Mg Softgel ([place]-3 Fatty Acids/Fish Oil) 1 Each Capsule 1 Cap PO DAILY Multivitamins With Minerals (Multivitamin With Minerals) 1 Each Tablet 1 Tab PO DAILY Linzess (Linaclotide) 290 Mcg Capsule 290 Mcg PO DAILY Hydroxyzine Hcl 50 Mg Tablet 50 Mg PO PRN Q8HRS PRN Folic Acid 1 Mg Tablet 1 Mg PO DAILY Docusate Sodium 100 Mg Capsule 100 Mg PO BID PRN Clotrimazole 15 Gm Cream..g. 1 Peyton TP BID PRN Clonidine Hcl 0.1 Mg Tablet 0.1 Mg PO BID PRN Give for SBP>160 Vitamin D (Cholecalciferol (Vitamin D3)) 1,000 Unit Capsule 1,000 Unit PO DAILY Capsaicin 60 Gm Cream..g. 1 Peyton TP PRN Q8HRS PRN Aspirin 81 Mg Tab.chew 81 Mg PO DAILY Acetaminophen 500 Mg Tablet 500 Mg PO PRN Q6HRS PRN Quetiapine Fumarate 25 Mg Tablet 12.5 Mg PO PRN Q8HRS PRN Maalox Advanced Suspension (Mag Hydrox/Aluminum Hyd/Simeth) 355 Ml Oral.susp 30 Ml PO PRN Q4HRS PRN Trazodone Hcl 100 Mg Tablet 100 Mg PO HS PRN Tramadol Hcl (Tramadol HCl) 50 Mg Tablet 50 Mg PO PRN Q6HRS PRN Propranolol Hcl 10 Mg Tablet 10 Mg PO BID Mirtazapine 7.5 Mg Tablet 7.5 Mg PO HS Metformin Hcl 500 Mg Tablet 500 Mg PO BIDWMEALS Lisinopril 2.5 Mg Tablet 2.5 Mg PO DAILY Lamotrigine 200 Mg Tablet 200 Mg PO HS Famotidine 20 Mg Tablet 20 Mg PO BID Carbidopa-Levodopa 25-100 Tab (Carbidopa/Levodopa) 1 Each Tablet 1.5 Tab PO TID Sinemet 25-100 Mg Tablet (Carbidopa/Levodopa) 1 Each Tablet 2 Tab PO HS Buspirone Hcl 5 Mg Tablet 5 Mg PO TID Buspirone Hcl 15 Mg Tablet 15 Mg PO TID Seroquel (Quetiapine Fumarate) 200 Mg Tablet 200 Mg PO HS Cymbalta (Duloxetine Hcl) 60 Mg Capsule. 60 Mg PO BID I have reviewed the current psychotropics carefully including drug interactions. Risk benefit ratio favors no change other than as noted in my dictated progress note. Diagnosis: Problems: (1) Anxiety disorder (2) Major depressive disorder, recurrent episode (3) Impulse control disorder (4) Bipolar affective, mixed TIMMY,LUTHER Lopes MD Jul 21, 2018 19:42
[2018-07-21] MEDS: lamoTRIgine 100 MG TABLET. PO SCH (20:23)
[2018-07-21] MEDS: QUEtiapine 100 MG TABLET. PO SCH (20:24)
[2018-07-21] MEDS: MIRTAZAPINE 7.5 MG TABLET. PO SCH (20:25)
[2018-07-21] MEDS: ATORVASTATIN CALCIUM 20 MG TABLET PO SCH (20:25)
[2018-07-21] MEDS: lamoTRIgine 25 MG TABLET. PO SCH (20:27)
--- NOTE | 2018-07-22 00:23 | NUR ---
Patient sitting in day room watching the movie, Mrs Godfreyfirbernadette. Denies SI/HI when asked at assessment. Seems emotionally subdued, with flat affect. Compliant with medications taken whole with water. Interactive with nurse. Stated he likes to get to be by [id number].
[2018-07-22] MEDS: LINACLOTIDE 145 MCG CAPSULE. PO SCH (05:53)
[2018-07-22 06:11] VITALS: BP 115/69
[2018-07-22] MEDS: LORazepam 0.5 MG TABLET PO PRN ×3 (06:43→17:36)
[2018-07-22] MEDS: busPIRone 5 MG TABLET. PO SCH ×3 (07:59→20:16)
[2018-07-22] MEDS: FAMOTIDINE 20 MG TABLET PO SCH ×2 (07:59→20:15)
[2018-07-22] MEDS: LISINOPRIL 2.5 MG TABLET PO SCH (07:59)
[2018-07-22] MEDS: MULTIVITAMIN with MINERAL TABLET. PO SCH (07:59)
[2018-07-22] MEDS: OMEGA-3 FATTY ACIDS/FISH OIL 1,000 MG CAPSULE. PO SCH (07:59)
[2018-07-22] MEDS: DULoxetine HCL 60 MG CAPSULE.DR PO SCH ×2 (07:59→20:17)
[2018-07-22] MEDS: FOLIC ACID 1 MG TABLET PO SCH (08:00)
[2018-07-22] MEDS: ASPIRIN 81 MG TAB.CHEW PO SCH (08:00)
[2018-07-22] MEDS: CHOLECALCIFEROL (VITAMIN D3) 1,000 UNIT TABLET PO SCH (08:00)
[2018-07-22] MEDS: PROPRANOLOL 10 MG TABLET. PO SCH ×2 (08:00→17:37)
[2018-07-22] MEDS: CARBIDOPA/LEVODOPA 25/100MG TABLET PO SCH ×4 (08:00→20:15)
[2018-07-22] MEDS: metFORMIN 500 MG TABLET PO SCH ×2 (08:00→17:37)
[2018-07-22] MEDS: THIAMINE 100 MG TABLET. PO SCH (08:00)
--- NOTE | 2018-07-22 09:42 | NUR ---
Behavior Intervention Response and Plan: BIRP Note: Behavior: Assumed Care of patient, patient located in Dining Room at shift change. Patient exhibited the following behavior Attention Seeking, Medication Seeking, Compliant. Brief assessment on rounds of vital signs, medication needs, lab studies, and pain. Treatment plan problems . Intervention: Patient assessed and the following interventions initiated safety checks 15 Minute Checks Cognitive Assessment , Head to toe Assessment , Medications. Response: After interactions and interventions patient responded in the following manner, Somatic , Anxious, compliant. Continue to assess behaviors and condition will continue to monitor throughout the shift as needed. Patient educated on ADL's, and hand hygiene. Plan: Continue to monitor Master Treatment Plan for patient's progress toward short term goals of Decreased Anxiety, Improved Mood, oil heaterman goals to return to previous living setting vs placement. Continue to assess patient for changes in above assessment. Monitor for medication needs, pain, and safety concerns. Hourly rounding performed to ensure safe environment.
[2018-07-22 15:53] VITALS: BP 111/74
--- NOTE | 2018-07-22 17:56 | NUR ---
pt up adl to meals and day room. states he is still having anxiety that is not controlled with Ativan. informed pt that dr was titrating his Keppra and that should start helping to stabilize his mood. Voices no SI. No past records received yet from [facility].
--- NOTE | 2018-07-22 18:36 | PN ---
DATE: 07/21/2018 PSYCHIATRIC PROGRESS NOTE This late entry 07/21/2018, covers elements not covered in my initial note. SUBJECTIVE: I met with the patient in the evening. The patient slept 7-1/4 hours previous night. He perseverates in his questions, remains anxious, asking for Ativan every 4 hours. Sobbing at times after his and son visited him. REVIEW OF SYSTEMS: Impaired ambulation, in wheelchair, consequent to his Parkinson's. No CV, , pulmonary, eye system symptoms on review. MENTAL STATUS EXAM: Oriented reasonably. Speech is coherent, abstraction fair, computation impaired, language function intact. Mood and affect remain somewhat anxious, labile. LABORATORY DATA: Reviewed. IMPRESSION: Unchanged from initial note. PLAN: Increase Lamictal to 250 mg at bedtime after he has been on 225 for 3 days. Rest unchanged. MAN Priya WARNER MD DR: ALMA DELIA/parmjit JOB#: [id number] / [id number]
--- NOTE | 2018-07-22 18:37 | PN ---
DATE: 07/20/2018 PSYCHIATRIC PROGRESS NOTE This late entry 07/20/2018 covers elements not covered in my initial note. SUBJECTIVE: I met with the patient at length in the evening. The patient slept 7-1/2 hours previous night. We are awaiting records from [facility]. He is asking for his Ativan every 4 hours without missing a dosage and I addressed this at length to minimize usage of Ativan. Continues to have some mood lability, anxiety. REVIEW OF SYSTEMS: Ambulation impaired due to his Parkinson's. No CV, , pulmonary, eye system symptoms on review. MENTAL STATUS EXAM: Reasonably oriented. Speech is coherent, abstraction fair, computation impaired. Mood and affect is improved, still anxious, labile. LABORATORY DATA: Reviewed. IMPRESSION: Major depressive disorder, recurrent; bipolar 2 disorder; depressed; anxiety disorder, unspecified. Rest unchanged. PLAN: Increase Lamictal from 200 mg a day to 225 mg a day. Rest unchanged per initial note. MAN Priya WARNER MD DR: ALMA DELIA/parmjit JOB#: [id number] / [id number]
[2018-07-22] MEDS: ATORVASTATIN CALCIUM 20 MG TABLET PO SCH (20:15)
[2018-07-22] MEDS: lamoTRIgine 25 MG TABLET. PO SCH (20:15)
[2018-07-22] MEDS: QUEtiapine 100 MG TABLET. PO SCH (20:15)
[2018-07-22] MEDS: lamoTRIgine 100 MG TABLET. PO SCH (20:17)
[2018-07-22] MEDS: MIRTAZAPINE 7.5 MG TABLET. PO SCH (20:20)
[2018-07-22] MEDS: traZODone 100 MG TABLET. PO PRN (20:32)
--- NOTE | 2018-07-22 22:15 | PDOC ---
Exam Note: Kal Note: Please also refer to the separate dictated note~for this date of service dictated separately.~Patient seen individually. Discussed the patient with Nursing staff reviewed the chart.~Reviewed interim history and current functioning. Reviewed vital signs,~Labs/ Radiology~and current medications noted below. Continue current treatment with the changes noted in the dictated addendum note Assessment: Vital Signs: Vital Signs Date Time Temp Pulse Resp B/P (MAP) Pulse Ox O2 Delivery O2 Flow Rate FiO2 07/22/18 17:37 84 111/74 07/22/18 15:53 97.8 16 98 07/19/18 06:24 Room Air I&O Intake and Output 07/22/18 07:00 Intake Total 1440 ml Balance 1440 ml Intake Oral 1440 ml # Voids 1 Labs: Laboratory Tests Test 07/22/18 07:25 Glucose (Fingerstick) 116 mg/dL (70-99) H Current Medications: Meds: Current Medications Mirtazapine (Remeron) 7.5 mg HS PO ; Start 07/19/18 at 21:00; Stop 07/19/18 at 21:00; Status DC Non-Formulary Medication (Buspirone Hcl ) 5 mg TID PO ; Start 07/19/18 at 09:00 ; Stop 07/19/18 at 09:00; Status DC Non-Formulary Medication (Buspirone Hcl ) 15 mg TID PO ; Start 07/19/18 at 09:00 ; Stop 07/19/18 at 09:00; Status DC Non-Formulary Medication (Duloxetine Hcl (Cymbalta)) 60 mg BID PO ; Start at 09:00; Stop 07/19/18 at 09:00; Status DC Hydroxyzine HCl (Atarax) 50 mg PRN Q8HRS PRN PO ANXIETY / AGITATION Last administered on 07/19/18at 09:26; Start 07/18/18 at 23:00 Non-Formulary Medication (Lamotrigine ) 200 mg HS PO ; Start 07/19/18 at 21:00; Stop 07/19/18 at 21:00; Status DC Quetiapine Fumarate (SEROquel) 12.5 mg PRN Q8HRS PRN PO ANXIETY / AGITATION; Start 07/18/18 at 23:00 Non-Formulary Medication (Quetiapine Fumarate (Seroquel)) 200 mg HS PO ; Start 07/19/18 at 21:00; Stop 07/19/18 at 21:00; Status DC Trazodone HCl (Desyrel) 100 mg PRN QHS PRN PO INSOMNIA Last administered on at 20:32; Start 07/18/18 at 23:00 Atorvastatin Calcium (Lipitor) 20 mg QHS PO ; Start 07/19/18 at 21:00; Stop at 21:00; Status DC Carbidopa/Levodopa (Sinemet 25/100) 1.5 tab TID PO Last administered on at 08:05; Start 07/19/18 at 09:00; Stop 07/19/18 at 11:35; Status DC Carbidopa/Levodopa (Sinemet 25/100) 2 tab HS PO ; Start 07/19/18 at 21:00; Stop 07/19/18 at 21:00; Status DC Clonidine HCl (Catapres) 0.1 mg PRN BID PRN PO HYPERTENSION, SEE COMMENTS; Start 07/18/18 at 23:00 Tramadol HCl (Ultram) 50 mg PRN Q6HRS PRN PO PAIN; Start 07/18/18 at 23:00 Acetaminophen (Tylenol) 500 mg PRN Q6HRS PRN PO PAIN / TEMP Last administered on 07/22/18at 12:54; Start 07/18/18 at 23:00 Aspirin (Children'S Aspirin) 81 mg DAILYWBKFT PO Last administered on at 08:00; Start 07/19/18 at 08:00 Capsaicin (Zostrix) 1 peyton PRN Q8HRS PRN TP Joint Pain; Start 07/18/18 at 23:00 Vitamin D (Vitamin D3) 1,000 unit DAILY PO Last administered on 07/22/18at 08:00 ; Start 07/19/18 at 09:00 Clotrimazole (Lotrimin) 1 peyton PRN BID PRN TP RASH; Start 07/18/18 at 23:00 Docusate Sodium (Colace) 100 mg PRN BID PRN PO CONSTIPATION; Start 07/18/18 at 23:00 Non-Formulary Medication (Famotidine ) 20 mg BID PO ; Start 07/19/18 at 09:00; Stop 07/19/18 at 09:00; Status DC Folic Acid (Folic Acid) 1 mg DAILY PO Last administered on 07/22/18 08:00; Start 07/19/18 at 09:00 Linaclotide (Linzess) 290 mcg DAILY07 PO Last administered on 07/22/18 05:53; Start 07/19/18 at 07:00 Lisinopril (Prinivil) 2.5 mg DAILY PO Last administered on 07/22/18 07:59; Start 07/19/18 at 09:00 Al Hydroxide/Mg Hydroxide (Mylanta Plus Xs) 30 ml PRN Q4HRS PRN PO DYSPEPSIA; Start 07/18/18 at 23:00 Metformin HCl (Glucophage) 500 mg BIDWMEALS PO Last administered on 07/22/18 17:37; Start 07/19/18 at 08:00 Multivitamins/ Calcium (Thera-M Plus) 1 tab DAILY PO Last administered on 07:59; Start 07/19/18 at 09:00 Fish Oil (Fish Oil) 1,000 mg DAILY PO Last administered on 07/22/18 07:59; Start 07/19/18 at 09:00 Non-Formulary Medication (Propranolol Hcl ) 10 mg BID PO ; Start 07/19/18 at 09: 00; Stop 07/19/18 at 09:00; Status DC Thiamine HCl (Vitamin B-1) 100 mg DAILY PO Last administered on 07/22/18 08:00 ; Start 07/19/18 at 09:00 Magnesium Hydroxide (Milk Of Magnesia) 2,400 mg PRN QHS PRN PO CONSTIPATION; Start 07/18/18 at 23:00 Atorvastatin Calcium (Lipitor) 20 mg QHS PO Last administered on 07/22/18 20: 15; Start 07/18/18 at 23:30 Carbidopa/Levodopa (Sinemet 25/100) 2 tab HS PO Last administered on 07/22/18 20:15; Start 07/18/18 at 23:30 Mirtazapine (Remeron) 7.5 mg HS PO Last administered on 07/22/18 20:20; Start 07/18/18 at 23:30 Buspirone HCl (Buspar) 5 mg TID PO Last administered on 07/19/18 08:05; Start 07/18/18 at 23:30; Stop 07/19/18 at 11:35; Status DC Buspirone HCl (Buspar) 15 mg TID PO Last administered on 07/19/18 08:06; Start 07/18/18 at 23:30; Stop 07/19/18 at 11:35; Status DC Duloxetine HCl (Cymbalta) 60 mg BID PO Last administered on 07/22/18 20:17; Start 07/18/18 at 23:30 Famotidine (Pepcid) 20 mg BID PO Last administered on 07/22/18 20:15; Start at 23:30 Lamotrigine (LaMICtal) 200 mg HS PO Last administered on 07/21/18 20:23; Start 07/18/18 at 23:30; Stop 07/22/18 at 07:07; Status DC Propranolol HCl (Inderal) 10 mg BID PO ; Start 07/18/18 at 23:30; Stop 07/18/18 at 23:54; Status DC Quetiapine Fumarate (SEROquel) 200 mg HS PO Last administered on 07/22/18 20: 15; Start 07/18/18 at 23:30 Propranolol HCl (Inderal) 10 mg BID94 PO Last administered on 07/22/18 17:37; Start 07/19/18 at 09:00 Lorazepam (Ativan) 0.25 mg PRN Q4HRS PRN PO ANXIETY / AGITATION Last administered on 07/22/18 17:36; Start 07/19/18 at 10:45 Buspirone HCl (Buspar) 20 mg TID PO Last administered on 07/22/18 20:16; Start 07/19/18 at 14:00 Carbidopa/Levodopa (Sinemet 25/100) 1.5 tab TIDWMEALS PO Last administered on 17:37; Start 07/19/18 at 12:00 Lamotrigine (LaMICtal) 25 mg HS PO Last administered on 07/22/18 20:15; Start 07/21/18 at 21:00; Stop 07/23/18 at 23:00 Lamotrigine (LaMICtal) 50 mg HS PO ; Start 07/24/18 at 21:00 Lamotrigine (LaMICtal) 200 mg HS PO Last administered on 07/22/18at 20:17; Start 07/22/18 at 21:00 Active Scripts Active Reported Atorvastatin Calcium 20 Mg Tablet 20 Mg PO QHS B-1 (Thiamine HCl) 100 Mg Tablet 100 Mg PO DAILY Wilson 3 1,000 Mg Softgel (Wilson-3 Fatty Acids/Fish Oil) 1 Each Capsule 1 Cap PO DAILY Multivitamins With Minerals (Multivitamin With Minerals) 1 Each Tablet 1 Tab PO DAILY Linzess (Linaclotide) 290 Mcg Capsule 290 Mcg PO DAILY Hydroxyzine Hcl 50 Mg Tablet 50 Mg PO PRN Q8HRS PRN Folic Acid 1 Mg Tablet 1 Mg PO DAILY Docusate Sodium 100 Mg Capsule 100 Mg PO BID PRN Clotrimazole 15 Gm Cream..g. 1 Peyton TP BID PRN Clonidine Hcl 0.1 Mg Tablet 0.1 Mg PO BID PRN Give for SBP>160 Vitamin D (Cholecalciferol (Vitamin D3)) 1,000 Unit Capsule 1,000 Unit PO DAILY Capsaicin 60 Gm Cream..g. 1 Peyton TP PRN Q8HRS PRN Aspirin 81 Mg Tab.chew 81 Mg PO DAILY Acetaminophen 500 Mg Tablet 500 Mg PO PRN Q6HRS PRN Quetiapine Fumarate 25 Mg Tablet 12.5 Mg PO PRN Q8HRS PRN Maalox Advanced Suspension (Mag Hydrox/Aluminum Hyd/Simeth) 355 Ml Oral.susp 30 Ml PO PRN Q4HRS PRN Trazodone Hcl 100 Mg Tablet 100 Mg PO HS PRN Tramadol Hcl (Tramadol HCl) 50 Mg Tablet 50 Mg PO PRN Q6HRS PRN Propranolol Hcl 10 Mg Tablet 10 Mg PO BID Mirtazapine 7.5 Mg Tablet 7.5 Mg PO HS Metformin Hcl 500 Mg Tablet 500 Mg PO BIDWMEALS Lisinopril 2.5 Mg Tablet 2.5 Mg PO DAILY Lamotrigine 200 Mg Tablet 200 Mg PO HS Famotidine 20 Mg Tablet 20 Mg PO BID Carbidopa-Levodopa 25-100 Tab (Carbidopa/Levodopa) 1 Each Tablet 1.5 Tab PO TID Sinemet 25-100 Mg Tablet (Carbidopa/Levodopa) 1 Each Tablet 2 Tab PO HS Buspirone Hcl 5 Mg Tablet 5 Mg PO TID Buspirone Hcl 15 Mg Tablet 15 Mg PO TID Seroquel (Quetiapine Fumarate) 200 Mg Tablet 200 Mg PO HS Cymbalta (Duloxetine Hcl) 60 Mg Capsule. 60 Mg PO BID I have reviewed the current psychotropics carefully including drug interactions. Risk benefit ratio favors no change other than as noted in my dictated progress note. Diagnosis: Problems: (1) Anxiety disorder (2) Major depressive disorder, recurrent episode (3) Impulse control disorder (4) Bipolar affective, mixed LUTHER WARNER MD Jul 22, 2018 22:15
--- NOTE | 2018-07-23 01:15 | NUR ---
Patient in day room watching tv. Patient likes his evening meds between 7913-0488 because he likes to go to bed at 2029. Patient cooperative, compliant with medications. When asked if he was having SI thoughts, he stated that he isn't right now, but he was earlier and they make him anxious. Requested PRN trazodone to help with sleep when given HS meds. PRN Trazodone given as requested.
[2018-07-23] MEDS: LINACLOTIDE 145 MCG CAPSULE. PO SCH (05:54)
[2018-07-23] MEDS: LORazepam 0.5 MG TABLET PO PRN ×3 (05:54→15:59)
--- NOTE | 2018-07-23 05:55 | NUR ---
PRN ativan 0.25mg give per order by patient request. He states he is anxious.
[2018-07-23 06:35] VITALS: BP 111/71
[2018-07-23] MEDS: CHOLECALCIFEROL (VITAMIN D3) 1,000 UNIT TABLET PO SCH (07:34)
[2018-07-23] MEDS: CARBIDOPA/LEVODOPA 25/100MG TABLET PO SCH ×4 (07:34→20:26)
[2018-07-23] MEDS: OMEGA-3 FATTY ACIDS/FISH OIL 1,000 MG CAPSULE. PO SCH (07:34)
[2018-07-23] MEDS: DULoxetine HCL 60 MG CAPSULE.DR PO SCH (07:34)
[2018-07-23] MEDS: LISINOPRIL 2.5 MG TABLET PO SCH (07:34)
[2018-07-23] MEDS: MULTIVITAMIN with MINERAL TABLET. PO SCH (07:34)
[2018-07-23] MEDS: THIAMINE 100 MG TABLET. PO SCH (07:34)
[2018-07-23] MEDS: ASPIRIN 81 MG TAB.CHEW PO SCH (07:34)
[2018-07-23] MEDS: busPIRone 5 MG TABLET. PO SCH ×3 (07:34→20:26)
[2018-07-23] MEDS: FOLIC ACID 1 MG TABLET PO SCH (07:34)
[2018-07-23] MEDS: PROPRANOLOL 10 MG TABLET. PO SCH ×2 (07:35→15:13)
[2018-07-23] MEDS: metFORMIN 500 MG TABLET PO SCH ×2 (07:35→15:59)
[2018-07-23] MEDS: FAMOTIDINE 20 MG TABLET PO SCH ×2 (09:00→20:27)
--- NOTE | 2018-07-23 09:54 | NUR ---
Behavior Intervention Response and Plan: BIRP Note: Behavior: Assumed Care of patient, patient located in Dining Room at shift change. Patient exhibited the following behavior Attention Seeking, calm , Compliant. Brief assessment on rounds of vital signs, medication needs, lab studies, and pain. Treatment plan problems . Intervention: Patient assessed and the following interventions initiated safety checks 15 Minute Checks Cognitive Assessment , Head to toe Assessment , Medications. Response: After interactions and interventions patient responded in the following manner, Somatic , Anxious, compliant. Continue to assess behaviors and condition will continue to monitor throughout the shift as needed. Patient educated on ADL's, and hand hygiene. 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 Continue to assess patient for changes in above assessment. Monitor for medication needs, pain, and safety concerns. Hourly rounding performed to ensure safe environment. Pt did report feeling suicidal this am but denies a plan. PT also feeling anxious. Will perform 15 min checks. Rosalba BALLARD BSN CMSRN [facility]
--- NOTE | 2018-07-23 11:23 | NUR ---
PSYCHOSOCIAL ASSESSMENT ADMISSION DATE: 07/18/18 CONTACT INFORMATION: DPOA/Guardian Contact Name: Pita Bray, Contact Address: Contact Phone #: [phone] ETHNIC ORIGIN: REASONS FOR ADMISSION: Anxiety/Panic Depressed Homicidal Ideation Suicidal ideation ADDITIONAL ADMISSION COMMENTS: attempted to slam body into the window REASON FOR ADMISSION IN PATIENT/FAMILY'S OWN WORDS: Pt reports that he just has a lot of anger and thoughts he has not processed through and it has caused him some trouble PATIENT/FAMILY EXPECTATIONS FOR ADMISSION: Improve anxiety, "Improve my thinking" LIVING SITUATION: Patient lives with: [facility] Contact Name: [facility] Contact Address: [address] [place] [address]; [place] [address] Contact Phone #: [phone] FAMILY RELATIONS: Marital Status: # of Marriages: 1 # of Children: 3 [facility] Family Support: Concerned Involved in [place] Planning Additional Comments r/t Family: Pt has been to his Pita for 38 years; "it'll be 39 years August 31". Pt met his in high school through her brother. Pt and Pita attended separate high schools; however, pt worked with Pita's brother, who introduced the two. Pita and sean has 3 children: 2 boys and 1 girl who all live in [place]. SIGNIFICANT PSYCHIATRIC/MEDICAL HISTORY: Psychiatric/Treatment History: Pt has a hx of depression and anxiety. Pt reports that he was in [facility], which is a level II facility. Pt also had stays in [facility], [facility], [facility] and [facility]. Pertinent Family History: Pt reports that his sister had some mental health issues and his has depression and anxiety HISTORICAL DATA: Childhood Environment: [place] Supportive Comment: Pt reports that his family was very loving. Psychological Abuse: None Additional Comments: None Drug Abuse History last 12 months: No Comment: PERSONAL HISTORY: Vocational history: - worked on [employer]; - [employer] service: N Y[employer]dan[employer] background: Moravian Sexual orientation: Heterosexual Educational Level: Graduated high school Past/Present Interests/Hobbies: unknown Financial support/resources: SS Disability Monthly income: Person handling finances: Pt handles finances Do you have a history of legal problems: N Cultural considerations: None SOCIAL RELATIONSHIPS-CURRENT/PAST: Psychiatrist: None PCP: Dr. 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 Anxiety/Panic Promote Coping Skill No Suicidal/Tawana. ideation Medication Stabilization Other preliminary treatment comments: DISCHARGE PLANNING: Discharge planning/disposition: Other Additional discharge needs identified: Pt would like to return to the Level II facility in [place]. ADDITIONAL INFORMATION: Other Pertinent Data: Information was obtained by pt; SW will continue to work with pt and pt family to discuss pt placement options.
--- NOTE | 2018-07-23 15:55 | NUR ---
ACTIVITY THERAPY ASSESSMENT Completed based on observation and interview. Pt. is pleasant to speak to and usually participates fully in activities. During interview, Pt. spoke about his current living situation- [facility], and expressed his challenges with living there. He has very little personal space and privacy because he shares a room. He spoke about doing Parkinson's chair exercises "Big and Loud," but needing more room to do them. 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 He explained he has had suicidal thoughts and also has hd thoughts of hurting his . He said these thoughts come and go. Pt. enjoys light woodworking (birdhouses, bird feeders), wants to draw, likes reading books on history of things and is getting into [employer] and [employer]. He has a smart phone and has used the application, Calm, to help relax. He has also tried breathing techniques and mindfulness to reduce anxiety. Pt. expressed a desire to learn new ways to manage stress/anxiety. He has a couple friends from a [employer] study group that get together and drink coffee. Initial goal aimed to increase knowledge of relaxation techniques and leisure awareness: Pt. will participate in all groups he's invited to. Addendum: 07/24/18 at 0823 by JULIANA TURNER ACT Assessment took place at this time on 07/22/2018, not 07/23/2018
[2018-07-23 16:22] VITALS: BP 105/71
[2018-07-23] MEDS: ATORVASTATIN CALCIUM 20 MG TABLET PO SCH (20:25)
[2018-07-23] MEDS: QUEtiapine 100 MG TABLET. PO SCH (20:25)
[2018-07-23] MEDS: lamoTRIgine 25 MG TABLET. PO SCH (20:26)
[2018-07-23] MEDS: lamoTRIgine 100 MG TABLET. PO SCH (20:27)
[2018-07-23] MEDS: MIRTAZAPINE 7.5 MG TABLET. PO SCH (20:27)
[2018-07-23] MEDS: traZODone 100 MG TABLET. PO PRN (20:39)
--- NOTE | 2018-07-23 21:30 | PN ---
DATE: 07/22/2018 PSYCHIATRIC PROGRESS NOTE This late entry 07/22/2018 covers elements not covered in my initial note. SUBJECTIVE: I met with the patient in the evening. The patient remains somewhat anxious, constantly taking his Ativan as soon as he is able to p.r.n. He is tolerating the increased Lamictal to 250 mg at bedtime. REVIEW OF SYSTEMS: Ambulation impaired consequent to his Parkinson's. No CV, , pulmonary, eye, ENT system symptoms on review, remains quite anxious. MENTAL STATUS EXAM: Reasonably oriented. Speech is coherent, abstraction fair, computation impaired, language function intact. Mood and affect somewhat dysphoric, anxious, obsessive at times. LABORATORY DATA: Reviewed. IMPRESSION: Unchanged from initial note. PLAN: Increase Lamictal to 250 mg at bedtime. Rest unchanged per initial note. MAN Priya WARNER MD DR: ALMA DELIA/parmjit JOB#: [id number] / [id number]
--- NOTE | 2018-07-23 22:25 | PDOC ---
Exam Note: Kal Note: Please also refer to the separate dictated note~for this date of service dictated separately.~Patient seen individually. Discussed the patient with Nursing staff reviewed the chart.~Reviewed interim history and current functioning. Reviewed vital signs,~Labs/ Radiology~and current medications noted below. Continue current treatment with the changes noted in the dictated addendum note Assessment: Vital Signs: Vital Signs Date Time Temp Pulse Resp B/P (MAP) Pulse Ox O2 Delivery O2 Flow Rate FiO2 07/23/18 16:22 98.9 77 18 105/71 (82) 96 07/23/18 06:35 Room Air I&O Intake and Output 07/23/18 06:59 Intake Total 1440 ml Balance 1440 ml Intake Oral 1440 ml # Voids 1 Labs: Laboratory Tests Test 07/23/18 07:51 Glucose (Fingerstick) 133 mg/dL (70-99) H Current Medications: Meds: Current Medications Mirtazapine (Remeron) 7.5 mg HS PO ; Start 07/19/18 at 21:00; Stop 07/19/18 at 21:00; Status DC Non-Formulary Medication (Buspirone Hcl ) 5 mg TID PO ; Start 07/19/18 at 09:00 ; Stop 07/19/18 at 09:00; Status DC Non-Formulary Medication (Buspirone Hcl ) 15 mg TID PO ; Start 07/19/18 at 09:00 ; Stop 07/19/18 at 09:00; Status DC Non-Formulary Medication (Duloxetine Hcl (Cymbalta)) 60 mg BID PO ; Start at 09:00; Stop 07/19/18 at 09:00; Status DC Hydroxyzine HCl (Atarax) 50 mg PRN Q8HRS PRN PO ANXIETY / AGITATION Last administered on 07/19/18at 09:26; Start 07/18/18 at 23:00 Non-Formulary Medication (Lamotrigine ) 200 mg HS PO ; Start 07/19/18 at 21:00; Stop 07/19/18 at 21:00; Status DC Quetiapine Fumarate (SEROquel) 12.5 mg PRN Q8HRS PRN PO ANXIETY / AGITATION; Start 07/18/18 at 23:00 Non-Formulary Medication (Quetiapine Fumarate (Seroquel)) 200 mg HS PO ; Start 07/19/18 at 21:00; Stop 07/19/18 at 21:00; Status DC Trazodone HCl (Desyrel) 100 mg PRN QHS PRN PO INSOMNIA Last administered on at 20:39; Start 07/18/18 at 23:00 Atorvastatin Calcium (Lipitor) 20 mg QHS PO ; Start 07/19/18 at 21:00; Stop at 21:00; Status DC Carbidopa/Levodopa (Sinemet 25/100) 1.5 tab TID PO Last administered on at 08:05; Start 07/19/18 at 09:00; Stop 07/19/18 at 11:35; Status DC Carbidopa/Levodopa (Sinemet 25/100) 2 tab HS PO ; Start 07/19/18 at 21:00; Stop 07/19/18 at 21:00; Status DC Clonidine HCl (Catapres) 0.1 mg PRN BID PRN PO HYPERTENSION, SEE COMMENTS; Start 07/18/18 at 23:00 Tramadol HCl (Ultram) 50 mg PRN Q6HRS PRN PO PAIN; Start 07/18/18 at 23:00 Acetaminophen (Tylenol) 500 mg PRN Q6HRS PRN PO PAIN / TEMP Last administered on 07/22/18at 12:54; Start 07/18/18 at 23:00 Aspirin (Children'S Aspirin) 81 mg DAILYWBKFT PO Last administered on at 07:34; Start 07/19/18 at 08:00 Capsaicin (Zostrix) 1 peyton PRN Q8HRS PRN TP Joint Pain; Start 07/18/18 at 23:00 Vitamin D (Vitamin D3) 1,000 unit DAILY PO Last administered on 07/23/18at 07:34 ; Start 07/19/18 at 09:00 Clotrimazole (Lotrimin) 1 peyton PRN BID PRN TP RASH; Start 07/18/18 at 23:00 Docusate Sodium (Colace) 100 mg PRN BID PRN PO CONSTIPATION; Start 07/18/18 at 23:00 Non-Formulary Medication (Famotidine ) 20 mg BID PO ; Start 07/19/18 at 09:00; Stop 07/19/18 at 09:00; Status DC Folic Acid (Folic Acid) 1 mg DAILY PO Last administered on 07/23/18 07:34; Start 07/19/18 at 09:00 Linaclotide (Linzess) 290 mcg DAILY07 PO Last administered on 07/23/18 05:54; Start 07/19/18 at 07:00 Lisinopril (Prinivil) 2.5 mg DAILY PO Last administered on 07/23/18 07:34; Start 07/19/18 at 09:00 Al Hydroxide/Mg Hydroxide (Mylanta Plus Xs) 30 ml PRN Q4HRS PRN PO DYSPEPSIA; Start 07/18/18 at 23:00 Metformin HCl (Glucophage) 500 mg BIDWMEALS PO Last administered on 07/23/18 15:59; Start 07/19/18 at 08:00 Multivitamins/ Calcium (Thera-M Plus) 1 tab DAILY PO Last administered on 07:34; Start 07/19/18 at 09:00 Fish Oil (Fish Oil) 1,000 mg DAILY PO Last administered on 07/23/18 07:34; Start 07/19/18 at 09:00 Non-Formulary Medication (Propranolol Hcl ) 10 mg BID PO ; Start 07/19/18 at 09: 00; Stop 07/19/18 at 09:00; Status DC Thiamine HCl (Vitamin B-1) 100 mg DAILY PO Last administered on 07/23/18 07:34 ; Start 07/19/18 at 09:00 Magnesium Hydroxide (Milk Of Magnesia) 2,400 mg PRN QHS PRN PO CONSTIPATION; Start 07/18/18 at 23:00 Atorvastatin Calcium (Lipitor) 20 mg QHS PO Last administered on 07/23/18 20: 25; Start 07/18/18 at 23:30 Carbidopa/Levodopa (Sinemet 25/100) 2 tab HS PO Last administered on 07/23/18 20:26; Start 07/18/18 at 23:30 Mirtazapine (Remeron) 7.5 mg HS PO Last administered on 07/23/18 20:27; Start 07/18/18 at 23:30 Buspirone HCl (Buspar) 5 mg TID PO Last administered on 07/19/18 08:05; Start 07/18/18 at 23:30; Stop 07/19/18 at 11:35; Status DC Buspirone HCl (Buspar) 15 mg TID PO Last administered on 07/19/18 08:06; Start 07/18/18 at 23:30; Stop 07/19/18 at 11:35; Status DC Duloxetine HCl (Cymbalta) 60 mg BID PO Last administered on 07/23/18 07:34; Start 07/18/18 at 23:30; Stop 07/23/18 at 16:47; Status DC Famotidine (Pepcid) 20 mg BID PO Last administered on 07/23/18 20:27; Start at 23:30 Lamotrigine (LaMICtal) 200 mg HS PO Last administered on 07/21/18 20:23; Start 07/18/18 at 23:30; Stop 07/22/18 at 07:07; Status DC Propranolol HCl (Inderal) 10 mg BID PO ; Start 07/18/18 at 23:30; Stop 07/18/18 at 23:54; Status DC Quetiapine Fumarate (SEROquel) 200 mg HS PO Last administered on 07/23/18 20: 25; Start 07/18/18 at 23:30 Propranolol HCl (Inderal) 10 mg BID94 PO Last administered on 07/23/18 15:13; Start 07/19/18 at 09:00 Lorazepam (Ativan) 0.25 mg PRN Q4HRS PRN PO ANXIETY / AGITATION Last administered on 07/23/18 15:59; Start 07/19/18 at 10:45; Stop 07/23/18 at 16:47 ; Status DC Buspirone HCl (Buspar) 20 mg TID PO Last administered on 07/23/18 20:26; Start 07/19/18 at 14:00 Carbidopa/Levodopa (Sinemet 25/100) 1.5 tab TIDWMEALS PO Last administered on 15:59; Start 07/19/18 at 12:00 Lamotrigine (LaMICtal) 25 mg HS PO Last administered on 07/23/18 20:26; Start 07/21/18 at 21:00; Stop 07/23/18 at 23:00 Lamotrigine (LaMICtal) 50 mg HS PO ; Start 07/24/18 at 21:00 Lamotrigine (LaMICtal) 200 mg HS PO Last administered on 07/23/18at 20:27; Start 07/22/18 at 21:00 Duloxetine HCl (Cymbalta) 60 mg DAILY PO ; Start 07/24/18 at 09:00 Lorazepam (Ativan) 0.5 mg PRN Q4HRS PRN PO ANXIETY / AGITATION; Start 07/23/18 at 17:00 Active Scripts Active Reported Atorvastatin Calcium 20 Mg Tablet 20 Mg PO QHS B-1 (Thiamine HCl) 100 Mg Tablet 100 Mg PO DAILY [place] 3 1,000 Mg Softgel ([place]-3 Fatty Acids/Fish Oil) 1 Each Capsule 1 Cap PO DAILY Multivitamins With Minerals (Multivitamin With Minerals) 1 Each Tablet 1 Tab PO DAILY Linzess (Linaclotide) 290 Mcg Capsule 290 Mcg PO DAILY Hydroxyzine Hcl 50 Mg Tablet 50 Mg PO PRN Q8HRS PRN Folic Acid 1 Mg Tablet 1 Mg PO DAILY Docusate Sodium 100 Mg Capsule 100 Mg PO BID PRN Clotrimazole 15 Gm Cream..g. 1 Peyton TP BID PRN Clonidine Hcl 0.1 Mg Tablet 0.1 Mg PO BID PRN Give for SBP>160 Vitamin D (Cholecalciferol (Vitamin D3)) 1,000 Unit Capsule 1,000 Unit PO DAILY Capsaicin 60 Gm Cream..g. 1 Pey[place] TP PRN Q8HRS PRN Aspirin 81 Mg Tab.chew 81 Mg PO DAILY Acetaminophen 500 Mg Tablet 500 Mg PO PRN Q6HRS PRN Quetiapine Fumarate 25 Mg Tablet 12.5 Mg PO PRN Q8HRS PRN Maalox Advanced Suspension (Mag Hydrox/Aluminum Hyd/Simeth) 355 Ml Oral.susp 30 Ml PO PRN Q4HRS PRN Trazodone Hcl 100 Mg Tablet 100 Mg PO HS PRN Tramadol Hcl (Tramadol HCl) 50 Mg Tablet 50 Mg PO PRN Q6HRS PRN Propranolol Hcl 10 Mg Tablet 10 Mg PO BID Mirtazapine 7.5 Mg Tablet 7.5 Mg PO HS Metformin Hcl 500 Mg Tablet 500 Mg PO BIDWMEALS Lisinopril 2.5 Mg Tablet 2.5 Mg PO DAILY Lamotrigine 200 Mg Tablet 200 Mg PO HS Famotidine 20 Mg Tablet 20 Mg PO BID Carbidopa-Levodopa 25-100 Tab (Carbidopa/Levodopa) 1 Each Tablet 1.5 Tab PO TID Sinemet 25-100 Mg Tablet (Carbidopa/Levodopa) 1 Each Tablet 2 Tab PO HS Buspirone Hcl 5 Mg Tablet 5 Mg PO TID Buspirone Hcl 15 Mg Tablet 15 Mg PO TID Seroquel (Quetiapine Fumarate) 200 Mg Tablet 200 Mg PO HS Cymbalta (Duloxetine Hcl) 60 Mg Capsule. 60 Mg PO BID I have reviewed the current psychotropics carefully including drug interactions. Risk benefit ratio favors no change other than as noted in my dictated progress note. Diagnosis: Problems: (1) Anxiety disorder (2) Major depressive disorder, recurrent episode (3) Impulse control disorder (4) Bipolar affective, mixed LUTHER WARNER MD Jul 23, 2018 22:25
--- NOTE | 2018-07-23 22:56 | NUR ---
Behavior Intervention Response and Plan: BIRP Note: Behavior: Assumed Care of patient, patient located in Day Room at shift change. Patient exhibited the following behavior Calm, Interactive, Able to Focus on Task. Brief assessment on rounds of vital signs, medication needs, lab studies, and pain. Treatment plan problems . Intervention: Patient assessed and the following interventions initiated safety checks 15 Minute Checks Head to toe Assessment , Cognitive Assessment , Medications. Response: After interactions and interventions patient responded in the following manner, Appropriate , Compliant ,Cooperative. Continue to assess behaviors and condition will continue to monitor throughout the shift as needed. Patient educated on ADL's, and hand hygiene. Plan: Continue to monitor Master Treatment Plan for patient's progress toward short term goals of Improved Mood, No harm To self/ others, residential goals to return to previous living setting vs placement. Continue to assess patient for changes in above assessment. Monitor for medication needs, pain, and safety concerns. Hourly rounding performed to ensure safe environment.
[2018-07-24] MEDS: LORazepam 0.5 MG TABLET PO PRN ×3 (06:12→16:00)
[2018-07-24] MEDS: LINACLOTIDE 145 MCG CAPSULE. PO SCH (06:13)
[2018-07-24 06:39] VITALS: BP 112/73
[2018-07-24] MEDS: busPIRone 5 MG TABLET. PO SCH ×3 (08:29→20:03)
[2018-07-24] MEDS: MULTIVITAMIN with MINERAL TABLET. PO SCH (08:30)
[2018-07-24] MEDS: CHOLECALCIFEROL (VITAMIN D3) 1,000 UNIT TABLET PO SCH (08:30)
[2018-07-24] MEDS: FAMOTIDINE 20 MG TABLET PO SCH ×2 (08:30→20:03)
[2018-07-24] MEDS: OMEGA-3 FATTY ACIDS/FISH OIL 1,000 MG CAPSULE. PO SCH (08:30)
[2018-07-24] MEDS: PROPRANOLOL 10 MG TABLET. PO SCH ×2 (08:30→16:00)
[2018-07-24] MEDS: metFORMIN 500 MG TABLET PO SCH ×2 (08:30→18:14)
[2018-07-24] MEDS: ASPIRIN 81 MG TAB.CHEW PO SCH (08:30)
[2018-07-24] MEDS: FOLIC ACID 1 MG TABLET PO SCH (08:30)
[2018-07-24] MEDS: LISINOPRIL 2.5 MG TABLET PO SCH (08:30)
[2018-07-24] MEDS: THIAMINE 100 MG TABLET. PO SCH (08:31)
[2018-07-24] MEDS: DULoxetine HCL 60 MG CAPSULE.DR PO SCH (08:32)
[2018-07-24] MEDS: CARBIDOPA/LEVODOPA 25/100MG TABLET PO SCH ×4 (08:32→20:03)
--- NOTE | 2018-07-24 10:55 | NUR ---
This morning patient has been in day room watching tv with peers and participating in RT stretching group. He came to the window and requested PRN ativan for anxiety. Talked to patient and asked if he was feeling SI/HI but he denied that and stated some of the other patients are being loud (one is yelling out in the west hallway) and it is causing him to be anxious. PRN administered per order for anxiety. Will continue to monitor.
--- NOTE | 2018-07-24 15:00 | NUR ---
[phone] Morning Activity Therapy group charted on paper forms and filed in Pt. chart.
[2018-07-24 15:54] VITALS: BP 99/65
--- NOTE | 2018-07-24 16:06 | NUR ---
Patient requests PRN ativan, stating he is anxious. Patient in day room and there are a lot of patients acting out. PRN ativan given per order.
--- NOTE | 2018-07-24 17:35 | NUR ---
Patient compliant with medications and cooperative. He is anxious, but denies SI and HI when asked specifically by nurse. He slept 7.75 hours last night. He spent most of the day in the day room.
[2018-07-24] MEDS: lamoTRIgine 100 MG TABLET. PO SCH (20:03)
[2018-07-24] MEDS: ATORVASTATIN CALCIUM 20 MG TABLET PO SCH (20:03)
[2018-07-24] MEDS: MIRTAZAPINE 7.5 MG TABLET. PO SCH (20:03)
[2018-07-24] MEDS: QUEtiapine 100 MG TABLET. PO SCH (20:03)
[2018-07-24] MEDS: lamoTRIgine 25 MG TABLET. PO SCH (20:04)
[2018-07-24] MEDS: traZODone 100 MG TABLET. PO PRN (20:12)
--- NOTE | 2018-07-24 22:28 | PDOC ---
Exam Note: Kal Note: Please also refer to the separate dictated note~for this date of service dictated separately.~Patient seen individually. Discussed the patient with Nursing staff reviewed the chart.~Reviewed interim history and current functioning. Reviewed vital signs,~Labs/ Radiology~and current medications noted below. Continue current treatment with the changes noted in the dictated addendum note Assessment: Vital Signs: Vital Signs Date Time Temp Pulse Resp B/P (MAP) Pulse Ox O2 Delivery O2 Flow Rate FiO2 07/24/18 16:00 82 99/65 07/24/18 15:54 97.2 18 97 07/23/18 06:35 Room Air I&O Intake and Output 07/24/18 06:59 Intake Total 1320 ml Balance 1320 ml Intake Oral 1320 ml Labs: Laboratory Tests Test 07/24/18 07:15 07/24/18 16:28 Glucose (Fingerstick) 111 mg/dL (70-99) H 175 mg/dL (70-99) H Current Medications: Meds: Current Medications Mirtazapine (Remeron) 7.5 mg HS PO ; Start 07/19/18 at 21:00; Stop 07/19/18 at 21:00; Status DC Non-Formulary Medication (Buspirone Hcl ) 5 mg TID PO ; Start 07/19/18 at 09:00 ; Stop 07/19/18 at 09:00; Status DC Non-Formulary Medication (Buspirone Hcl ) 15 mg TID PO ; Start 07/19/18 at 09:00 ; Stop 07/19/18 at 09:00; Status DC Non-Formulary Medication (Duloxetine Hcl (Cymbalta)) 60 mg BID PO ; Start at 09:00; Stop 07/19/18 at 09:00; Status DC Hydroxyzine HCl (Atarax) 50 mg PRN Q8HRS PRN PO ANXIETY / AGITATION Last administered on 07/19/18at 09:26; Start 07/18/18 at 23:00 Non-Formulary Medication (Lamotrigine ) 200 mg HS PO ; Start 07/19/18 at 21:00; Stop 07/19/18 at 21:00; Status DC Quetiapine Fumarate (SEROquel) 12.5 mg PRN Q8HRS PRN PO ANXIETY / AGITATION; Start 07/18/18 at 23:00 Non-Formulary Medication (Quetiapine Fumarate (Seroquel)) 200 mg HS PO ; Start 07/19/18 at 21:00; Stop 07/19/18 at 21:00; Status DC Trazodone HCl (Desyrel) 100 mg PRN QHS PRN PO INSOMNIA Last administered on at 20:12; Start 07/18/18 at 23:00 Atorvastatin Calcium (Lipitor) 20 mg QHS PO ; Start 07/19/18 at 21:00; Stop at 21:00; Status DC Carbidopa/Levodopa (Sinemet 25/100) 1.5 tab TID PO Last administered on at 08:05; Start 07/19/18 at 09:00; Stop 07/19/18 at 11:35; Status DC Carbidopa/Levodopa (Sinemet 25/100) 2 tab HS PO ; Start 07/19/18 at 21:00; Stop 07/19/18 at 21:00; Status DC Clonidine HCl (Catapres) 0.1 mg PRN BID PRN PO HYPERTENSION, SEE COMMENTS; Start 07/18/18 at 23:00 Tramadol HCl (Ultram) 50 mg PRN Q6HRS PRN PO PAIN; Start 07/18/18 at 23:00 Acetaminophen (Tylenol) 500 mg PRN Q6HRS PRN PO PAIN / TEMP Last administered on 07/22/18at 12:54; Start 07/18/18 at 23:00 Aspirin (Children'S Aspirin) 81 mg DAILYWBKFT PO Last administered on at 08:30; Start 07/19/18 at 08:00 Capsaicin (Zostrix) 1 peyton PRN Q8HRS PRN TP Joint Pain; Start 07/18/18 at 23:00 Vitamin D (Vitamin D3) 1,000 unit DAILY PO Last administered on 07/24/18at 08:30 ; Start 07/19/18 at 09:00 Clotrimazole (Lotrimin) 1 peyton PRN BID PRN TP RASH; Start 07/18/18 at 23:00 Docusate Sodium (Colace) 100 mg PRN BID PRN PO CONSTIPATION; Start 07/18/18 at 23:00 Non-Formulary Medication (Famotidine ) 20 mg BID PO ; Start 07/19/18 at 09:00; Stop 07/19/18 at 09:00; Status DC Folic Acid (Folic Acid) 1 mg DAILY PO Last administered on 07/24/18 08:30; Start 07/19/18 at 09:00 Linaclotide (Linzess) 290 mcg DAILY07 PO Last administered on 07/24/18 06:13; Start 07/19/18 at 07:00 Lisinopril (Prinivil) 2.5 mg DAILY PO Last administered on 07/24/18 08:30; Start 07/19/18 at 09:00 Al Hydroxide/Mg Hydroxide (Mylanta Plus Xs) 30 ml PRN Q4HRS PRN PO DYSPEPSIA; Start 07/18/18 at 23:00 Metformin HCl (Glucophage) 500 mg BIDWMEALS PO Last administered on 07/24/18 18:14; Start 07/19/18 at 08:00 Multivitamins/ Calcium (Thera-M Plus) 1 tab DAILY PO Last administered on 08:30; Start 07/19/18 at 09:00 Fish Oil (Fish Oil) 1,000 mg DAILY PO Last administered on 07/24/18 08:30; Start 07/19/18 at 09:00 Non-Formulary Medication (Propranolol Hcl ) 10 mg BID PO ; Start 07/19/18 at 09: 00; Stop 07/19/18 at 09:00; Status DC Thiamine HCl (Vitamin B-1) 100 mg DAILY PO Last administered on 07/24/18 08:31 ; Start 07/19/18 at 09:00 Magnesium Hydroxide (Milk Of Magnesia) 2,400 mg PRN QHS PRN PO CONSTIPATION; Start 07/18/18 at 23:00 Atorvastatin Calcium (Lipitor) 20 mg QHS PO Last administered on 07/24/18 20: 03; Start 07/18/18 at 23:30 Carbidopa/Levodopa (Sinemet 25/100) 2 tab HS PO Last administered on 07/24/18 20:03; Start 07/18/18 at 23:30 Mirtazapine (Remeron) 7.5 mg HS PO Last administered on 07/24/18 20:03; Start 07/18/18 at 23:30 Buspirone HCl (Buspar) 5 mg TID PO Last administered on 07/19/18 08:05; Start 07/18/18 at 23:30; Stop 07/19/18 at 11:35; Status DC Buspirone HCl (Buspar) 15 mg TID PO Last administered on 07/19/18 08:06; Start 07/18/18 at 23:30; Stop 07/19/18 at 11:35; Status DC Duloxetine HCl (Cymbalta) 60 mg BID PO Last administered on 07/23/18 07:34; Start 07/18/18 at 23:30; Stop 07/23/18 at 16:47; Status DC Famotidine (Pepcid) 20 mg BID PO Last administered on 07/24/18 20:03; Start at 23:30 Lamotrigine (LaMICtal) 200 mg HS PO Last administered on 07/21/18 20:23; Start 07/18/18 at 23:30; Stop 07/22/18 at 07:07; Status DC Propranolol HCl (Inderal) 10 mg BID PO ; Start 07/18/18 at 23:30; Stop 07/18/18 at 23:54; Status DC Quetiapine Fumarate (SEROquel) 200 mg HS PO Last administered on 07/24/18 20: 03; Start 07/18/18 at 23:30 Propranolol HCl (Inderal) 10 mg BID94 PO Last administered on 07/24/18 08:30; Start 07/19/18 at 09:00 Lorazepam (Ativan) 0.25 mg PRN Q4HRS PRN PO ANXIETY / AGITATION Last administered on 07/23/18 15:59; Start 07/19/18 at 10:45; Stop 07/23/18 at 16:47 ; Status DC Buspirone HCl (Buspar) 20 mg TID PO Last administered on 07/24/18 20:03; Start 07/19/18 at 14:00 Carbidopa/Levodopa (Sinemet 25/100) 1.5 tab TIDWMEALS PO Last administered on 18:14; Start 07/19/18 at 12:00 Lamotrigine (LaMICtal) 25 mg HS PO Last administered on 07/23/18 20:26; Start 07/21/18 at 21:00; Stop 07/23/18 at 23:00; Status DC Lamotrigine (LaMICtal) 50 mg HS PO Last administered on 07/24/18at 20:04; Start 07/24/18 at 21:00 Lamotrigine (LaMICtal) 200 mg HS PO Last administered on 07/24/18 20:03; Start 07/22/18 at 21:00 Duloxetine HCl (Cymbalta) 60 mg DAILY PO Last administered on 07/24/18at 08:32; Start 07/24/18 at 09:00 Lorazepam (Ativan) 0.5 mg PRN Q4HRS PRN PO ANXIETY / AGITATION Last administered on 07/24/18at 16:00; Start 07/23/18 at 17:00 Active Scripts Active Reported Atorvastatin Calcium 20 Mg Tablet 20 Mg PO QHS B-1 (Thiamine HCl) 100 Mg Tablet 100 Mg PO DAILY [place] 3 1,000 Mg Softgel ([place]-3 Fatty Acids/Fish Oil) 1 Each Capsule 1 Cap PO DAILY Multivitamins With Minerals (Multivitamin With Minerals) 1 Each Tablet 1 Tab PO DAILY Linzess (Linaclotide) 290 Mcg Capsule 290 Mcg PO DAILY Hydroxyzine Hcl 50 Mg Tablet 50 Mg PO PRN Q8HRS PRN Folic Acid 1 Mg Tablet 1 Mg PO DAILY Docusate Sodium 100 Mg Capsule 100 Mg PO BID PRN Clotrimazole 15 Gm Cream..g. 1 [place] TP BID PRN Clonidine Hcl 0.1 Mg Tablet 0.1 Mg PO BID PRN Give for SBP>160 Vitamin D (Cholecalciferol (Vitamin D3)) 1,000 Unit Capsule 1,000 Unit PO DAILY Capsaicin 60 Gm Cream..g. 1 [place] TP PRN Q8HRS PRN Aspirin 81 Mg Tab.chew 81 Mg PO DAILY Acetaminophen 500 Mg Tablet 500 Mg PO PRN Q6HRS PRN Quetiapine Fumarate 25 Mg Tablet 12.5 Mg PO PRN Q8HRS PRN Maalox Advanced Suspension (Mag Hydrox/Aluminum Hyd/Simeth) 355 Ml Oral.susp 30 Ml PO PRN Q4HRS PRN Trazodone Hcl 100 Mg Tablet 100 Mg PO HS PRN Tramadol Hcl (Tramadol HCl) 50 Mg Tablet 50 Mg PO PRN Q6HRS PRN Propranolol Hcl 10 Mg Tablet 10 Mg PO BID Mirtazapine 7.5 Mg Tablet 7.5 Mg PO HS Metformin Hcl 500 Mg Tablet 500 Mg PO BIDWMEALS Lisinopril 2.5 Mg Tablet 2.5 Mg PO DAILY Lamotrigine 200 Mg Tablet 200 Mg PO HS Famotidine 20 Mg Tablet 20 Mg PO BID Carbidopa-Levodopa 25-100 Tab (Carbidopa/Levodopa) 1 Each Tablet 1.5 Tab PO TID Sinemet 25-100 Mg Tablet (Carbidopa/Levodopa) 1 Each Tablet 2 Tab PO HS Buspirone Hcl 5 Mg Tablet 5 Mg PO TID Buspirone Hcl 15 Mg Tablet 15 Mg PO TID Seroquel (Quetiapine Fumarate) 200 Mg Tablet 200 Mg PO HS Cymbalta (Duloxetine Hcl) 60 Mg Capsule.dr 60 Mg PO BID I have reviewed the current psychotropics carefully including drug interactions. Risk benefit ratio favors no change other than as noted in my dictated progress note. Diagnosis: Problems: (1) Anxiety disorder (2) Major depressive disorder, recurrent episode (3) Impulse control disorder (4) Bipolar affective, mixed LUTHER WARNER MD Jul 24, 2018 22:28
--- NOTE | 2018-07-24 23:44 | PN ---
DATE: 07/23/2018 PSYCHIATRIC PROGRESS NOTE This late entry 07/23/2018 covers elements not covered in my initial note. SUBJECTIVE: I met with the patient in the evening. The patient slept 8 hours previous night. He has been anxious and made some vague suicidal ideation in the morning. I processed this with him at length in the evening. He denies this and stated that it is more a reflection of his anxiety. REVIEW OF SYSTEMS: Ambulation impaired consequent to his Parkinson's. No CV, , pulmonary, eye, ENT system symptoms on review. MENTAL STATUS EXAM: Oriented to himself and situation. Speech is coherent, has some latency. Abstraction fair, computation impaired, language function intact. Mood and affect somewhat withdrawn. LABORATORY DATA: Reviewed. IMPRESSION: Unchanged from initial note. PLAN: No change from initial note, await records from [facility]. MAN Priya WARNER MD DR: ALMA DELIA/parmjit JOB#: [id number] / [id number]
--- NOTE | 2018-07-24 23:49 | NUR ---
Pt sitting calmly in dayroom watching movie this evening. Pt pleasant and interactive with staff. Denied SI/HI. Compliant with HS medications. Requested PRN Trazodone.
[2018-07-25 05:46] VITALS: BP 101/69
[2018-07-25] MEDS: LINACLOTIDE 145 MCG CAPSULE. PO SCH (06:02)
[2018-07-25] MEDS: LORazepam 0.5 MG TABLET PO PRN ×3 (06:02→16:30)
[2018-07-25] MEDS: metFORMIN 500 MG TABLET PO SCH ×2 (07:50→16:42)
[2018-07-25] MEDS: CARBIDOPA/LEVODOPA 25/100MG TABLET PO SCH ×4 (07:50→19:29)
[2018-07-25] MEDS: THIAMINE 100 MG TABLET. PO SCH (07:51)
[2018-07-25] MEDS: ASPIRIN 81 MG TAB.CHEW PO SCH (07:51)
[2018-07-25] MEDS: MULTIVITAMIN with MINERAL TABLET. PO SCH (07:51)
[2018-07-25] MEDS: FAMOTIDINE 20 MG TABLET PO SCH ×2 (07:51→19:28)
[2018-07-25] MEDS: OMEGA-3 FATTY ACIDS/FISH OIL 1,000 MG CAPSULE. PO SCH (07:51)
[2018-07-25] MEDS: FOLIC ACID 1 MG TABLET PO SCH (07:51)
[2018-07-25] MEDS: DULoxetine HCL 60 MG CAPSULE.DR PO SCH (07:51)
[2018-07-25] MEDS: CHOLECALCIFEROL (VITAMIN D3) 1,000 UNIT TABLET PO SCH (07:51)
[2018-07-25] MEDS: PROPRANOLOL 10 MG TABLET. PO SCH ×3 (07:52→16:07)
[2018-07-25] MEDS: LISINOPRIL 2.5 MG TABLET PO SCH (07:52)
--- NOTE | 2018-07-25 09:19 | NUR ---
WEEKLY ACTIVITY THERAPY NOTE Date of Admission: 07/19/2018 Date of AT Assessment: 07/22/2018 Goal aimed: to increase knowledge of relaxation techniques and leisure awareness Initial goal: Pt. will participate in all groups he's invited to. Weekly progress towards goal: achieved Group participation level: full Behaviors observed: fully engaged in all groups, pleasant, shakes/ bounces leg at times Plan: no change to goal
[2018-07-25] MEDS: busPIRone 10 MG TABLET. PO SCH ×3 (09:30→19:29)
--- NOTE | 2018-07-25 11:44 | NUR ---
WEEKLY NOTE: Pt , Ne, participated in tx team via telephone. Pt is eating about 90% of meals and getting 7 hours of sleep. Pt is denying any SI or HI but does report a lot of anxiety surrounding being around some of the patients. Pt reports wanting more coping skills and reported to SW that he just has a ton of anger that needs to be worked through. Pt is very active in group activities. Pt reports that Kassie had a concern that they are not a locked unit and feel that he needs to be on one. Pt Lamictal has been increased to 250mg at HS. Pt also receives Remeron for sleep. Records from pt previous admit have been requested. Pt will look towards discharge towards the end of next week, if not the early part of the week after.
--- NOTE | 2018-07-25 11:58 | NUR ---
Patient was in day ropom Addendum: 07/25/18 at 1202 by MARY ANNE ZHENG RN RN Patient was in the day room when SW approached this nurse stating, "he seems off." Patient was in his room when this nurse approached him approximately five minutes later. This nurse asked patient if he was feeling okay and if he was having any thoughts of hurting himself. Patient replied, "I'm having slight thoughts of committing suicide off and on." Patient was asked if he had a plan to commit suicide, and patient replied "no." This nurse advised patient that if he started to feel overwhelmed or if he started having thoughts of self harm to let any of the staff know. Patient verbally agreed to inform staff if he started having suicidal thoughts.
--- NOTE | 2018-07-25 14:10 | NUR ---
[employer] called for preauthorization, discussed with [employer] marketing development representative that the previous use of the web [employer] no followups or contact have been made since the patients arrival. [employer] stated to submit all information to [employer] department as urgent FAX # [phone]. Fax Confirmation received and placed on chart.
[2018-07-25 16:18] VITALS: BP 126/88
--- NOTE | 2018-07-25 16:23 | NUR ---
Behavior Intervention Response and Plan: BIRP Note: Behavior: Assumed Care of patient, patient located in Day Room at shift change. Patient exhibited the following behavior Disorganized, Calm, Cooperative. Brief assessment on rounds of vital signs, medication needs, lab studies, and pain. Treatment plan problems: alteration in mood and fall risk. Intervention: Patient assessed and the following interventions initiated safety checks 15 Minute Checks Cognitive Assessment , Head to toe Assessment , Medications. Response: After interactions and interventions patient responded in the following manner, Calm , Withdrawn ,Cooperative. Continue to assess behaviors and condition will continue to monitor throughout the shift as needed. Patient educated on ADL's, and hand hygiene. Plan: Continue to monitor Master Treatment Plan for patient's progress toward short term goals of No harm To self/ others, Decreased Anxiety, custodial goals to return to previous living setting vs placement. Continue to assess patient for changes in above assessment. Monitor for medication needs, pain, and safety concerns. Hourly rounding performed to ensure safe environment.
--- NOTE | 2018-07-25 17:42 | NUR ---
SW met with pt to discuss the wish to keep pt until the end of next week if not the beginning of the week after. Pt was very tearful and reports that he does not want to stay forever, but really wants to make sure he gets help and is more stable before he lives. SW questioned if he was feeling like harming himself or others and pt reported no; however, he did report feeling depressed and just could not figure out why. Pt told staff earlier today that he was feeling SI and it made him a bit anxious. BRANDAN will continue to work with pt , the insurance company and pt facility re: discharge arrangements.
--- NOTE | 2018-07-25 17:49 | NUR ---
Patient asked for Ativan for the second time during day shift at approximately 1615. This nurse checked pt's MRAD and noted that the maximum amount of Ativan patient can get in a 24 hour period is 1.5 mg. Nurse explained to pt that he can have ativan, but that it was the last time he can get it until 0600 tomorrow morning. Patient verbalized understanding and still wanted ativan at that time.
[2018-07-25] MEDS: QUEtiapine 100 MG TABLET. PO SCH (19:29)
[2018-07-25] MEDS: lamoTRIgine 25 MG TABLET. PO SCH (19:29)
[2018-07-25] MEDS: lamoTRIgine 100 MG TABLET. PO SCH (19:29)
[2018-07-25] MEDS: ATORVASTATIN CALCIUM 20 MG TABLET PO SCH (19:29)
[2018-07-25] MEDS: MIRTAZAPINE 7.5 MG TABLET. PO SCH (19:29)
[2018-07-25] MEDS: traZODone 100 MG TABLET. PO PRN (19:30)
--- NOTE | 2018-07-25 21:45 | NUR ---
Pt sitting in day room, watching television and interacting with peer at shift change. Pt A/O, calm, and pleasant; denies SI at this time. Pt cooperative with assessment and compliant with medications administered whole.
--- NOTE | 2018-07-25 22:26 | PDOC ---
Exam Note: Kal Note: Please also refer to the separate dictated note~for this date of service dictated separately.~Patient seen individually. Discussed the patient with Nursing staff reviewed the chart.~Reviewed interim history and current functioning. Reviewed vital signs,~Labs/ Radiology~and current medications noted below. Continue current treatment with the changes noted in the dictated addendum note Assessment: Vital Signs: Vital Signs Date Time Temp Pulse Resp B/P (MAP) Pulse Ox O2 Delivery O2 Flow Rate FiO2 07/25/18 16:18 98.0 97 18 126/88 (101) 99 Room Air I&O Intake and Output 07/25/18 07:00 Intake Total 1320 ml Balance 1320 ml Intake Oral 1320 ml # Voids 1 Labs: Laboratory Tests Test 07/25/18 07:20 Glucose (Fingerstick) 119 mg/dL (70-99) H Current Medications: Meds: Current Medications Mirtazapine (Remeron) 7.5 mg HS PO ; Start 07/19/18 at 21:00; Stop 07/19/18 at 21:00; Status DC Non-Formulary Medication (Buspirone Hcl ) 5 mg TID PO ; Start 07/19/18 at 09:00 ; Stop 07/19/18 at 09:00; Status DC Non-Formulary Medication (Buspirone Hcl ) 15 mg TID PO ; Start 07/19/18 at 09:00 ; Stop 07/19/18 at 09:00; Status DC Non-Formulary Medication (Duloxetine Hcl (Cymbalta)) 60 mg BID PO ; Start at 09:00; Stop 07/19/18 at 09:00; Status DC Hydroxyzine HCl (Atarax) 50 mg PRN Q8HRS PRN PO ANXIETY / AGITATION Last administered on 07/19/18at 09:26; Start 07/18/18 at 23:00 Non-Formulary Medication (Lamotrigine ) 200 mg HS PO ; Start 07/19/18 at 21:00; Stop 07/19/18 at 21:00; Status DC Quetiapine Fumarate (SEROquel) 12.5 mg PRN Q8HRS PRN PO ANXIETY / AGITATION; Start 07/18/18 at 23:00 Non-Formulary Medication (Quetiapine Fumarate (Seroquel)) 200 mg HS PO ; Start 07/19/18 at 21:00; Stop 07/19/18 at 21:00; Status DC Trazodone HCl (Desyrel) 100 mg PRN QHS PRN PO INSOMNIA Last administered on at 19:30; Start 07/18/18 at 23:00 Atorvastatin Calcium (Lipitor) 20 mg QHS PO ; Start 07/19/18 at 21:00; Stop at 21:00; Status DC Carbidopa/Levodopa (Sinemet 25/100) 1.5 tab TID PO Last administered on at 08:05; Start 07/19/18 at 09:00; Stop 07/19/18 at 11:35; Status DC Carbidopa/Levodopa (Sinemet 25/100) 2 tab HS PO ; Start 07/19/18 at 21:00; Stop 07/19/18 at 21:00; Status DC Clonidine HCl (Catapres) 0.1 mg PRN BID PRN PO HYPERTENSION, SEE COMMENTS; Start 07/18/18 at 23:00 Tramadol HCl (Ultram) 50 mg PRN Q6HRS PRN PO PAIN; Start 07/18/18 at 23:00 Acetaminophen (Tylenol) 500 mg PRN Q6HRS PRN PO PAIN / TEMP Last administered on 07/22/18at 12:54; Start 07/18/18 at 23:00 Aspirin (Children'S Aspirin) 81 mg DAILYWBKFT PO Last administered on at 07:51; Start 07/19/18 at 08:00 Capsaicin (Zostrix) 1 peyton PRN Q8HRS PRN TP Joint Pain; Start 07/18/18 at 23:00 Vitamin D (Vitamin D3) 1,000 unit DAILY PO Last administered on 07/25/18at 07:51 ; Start 07/19/18 at 09:00 Clotrimazole (Lotrimin) 1 peyton PRN BID PRN TP RASH; Start 07/18/18 at 23:00 Docusate Sodium (Colace) 100 mg PRN BID PRN PO CONSTIPATION; Start 07/18/18 at 23:00 Non-Formulary Medication (Famotidine ) 20 mg BID PO ; Start 07/19/18 at 09:00; Stop 07/19/18 at 09:00; Status DC Folic Acid (Folic Acid) 1 mg DAILY PO Last administered on 07/25/18 07:51; Start 07/19/18 at 09:00 Linaclotide (Linzess) 290 mcg DAILY07 PO Last administered on 07/25/18 06:02; Start 07/19/18 at 07:00 Lisinopril (Prinivil) 2.5 mg DAILY PO Last administered on 07/25/18 07:52; Start 07/19/18 at 09:00 Al Hydroxide/Mg Hydroxide (Mylanta Plus Xs) 30 ml PRN Q4HRS PRN PO DYSPEPSIA; Start 07/18/18 at 23:00 Metformin HCl (Glucophage) 500 mg BIDWMEALS PO Last administered on 07/25/18 16:42; Start 07/19/18 at 08:00 Multivitamins/ Calcium (Thera-M Plus) 1 tab DAILY PO Last administered on 07:51; Start 07/19/18 at 09:00 Fish Oil (Fish Oil) 1,000 mg DAILY PO Last administered on 07/25/18 07:51; Start 07/19/18 at 09:00 Non-Formulary Medication (Propranolol Hcl ) 10 mg BID PO ; Start 07/19/18 at 09: 00; Stop 07/19/18 at 09:00; Status DC Thiamine HCl (Vitamin B-1) 100 mg DAILY PO Last administered on 07/25/18 07:51 ; Start 07/19/18 at 09:00 Magnesium Hydroxide (Milk Of Magnesia) 2,400 mg PRN QHS PRN PO CONSTIPATION; Start 07/18/18 at 23:00 Atorvastatin Calcium (Lipitor) 20 mg QHS PO Last administered on 07/25/18 19: 29; Start 07/18/18 at 23:30 Carbidopa/Levodopa (Sinemet 25/100) 2 tab HS PO Last administered on 07/25/18 19:29; Start 07/18/18 at 23:30 Mirtazapine (Remeron) 7.5 mg HS PO Last administered on 07/25/18 19:29; Start 07/18/18 at 23:30 Buspirone HCl (Buspar) 5 mg TID PO Last administered on 07/19/18 08:05; Start 07/18/18 at 23:30; Stop 07/19/18 at 11:35; Status DC Buspirone HCl (Buspar) 15 mg TID PO Last administered on 07/19/18 08:06; Start 07/18/18 at 23:30; Stop 07/19/18 at 11:35; Status DC Duloxetine HCl (Cymbalta) 60 mg BID PO Last administered on 07/23/18 07:34; Start 07/18/18 at 23:30; Stop 07/23/18 at 16:47; Status DC Famotidine (Pepcid) 20 mg BID PO Last administered on 07/25/18 19:28; Start at 23:30 Lamotrigine (LaMICtal) 200 mg HS PO Last administered on 07/21/18 20:23; Start 07/18/18 at 23:30; Stop 07/22/18 at 07:07; Status DC Propranolol HCl (Inderal) 10 mg BID PO ; Start 07/18/18 at 23:30; Stop 07/18/18 at 23:54; Status DC Quetiapine Fumarate (SEROquel) 200 mg HS PO Last administered on 07/25/18 19: 29; Start 07/18/18 at 23:30 Propranolol HCl (Inderal) 10 mg BID94 PO Last administered on 07/25/18 16:07; Start 07/19/18 at 09:00 Lorazepam (Ativan) 0.25 mg PRN Q4HRS PRN PO ANXIETY / AGITATION Last administered on 07/23/18 15:59; Start 07/19/18 at 10:45; Stop 07/23/18 at 16:47 ; Status DC Buspirone HCl (Buspar) 20 mg TID PO Last administered on 07/24/18 20:03; Start 07/19/18 at 14:00; Stop 07/25/18 at 08:53; Status DC Carbidopa/Levodopa (Sinemet 25/100) 1.5 tab TIDWMEALS PO Last administered on 16:42; Start 07/19/18 at 12:00 Lamotrigine (LaMICtal) 25 mg HS PO Last administered on 2/26/19at 20:26; Start 07/21/18 at 21:00; Stop 07/23/18 at 23:00; Status DC Lamotrigine (LaMICtal) 50 mg HS PO Last administered on 07/25/18 19:29; Start 07/24/18 at 21:00 Lamotrigine (LaMICtal) 200 mg HS PO Last administered on 07/25/18 19:29; Start 07/22/18 at 21:00 Duloxetine HCl (Cymbalta) 60 mg DAILY PO Last administered on 07/25/18 07:51; Start 07/24/18 at 09:00 Lorazepam (Ativan) 0.5 mg PRN Q4HRS PRN PO ANXIETY / AGITATION Last administered on 07/25/18 16:30; Start 07/23/18 at 17:00 Buspirone HCl (Buspar) 20 mg TID PO Last administered on 07/25/18 19:29; Start 07/25/18 at 09:00 Active Scripts Active Reported Atorvastatin Calcium 20 Mg Tablet 20 Mg PO QHS B-1 (Thiamine HCl) 100 Mg Tablet 100 Mg PO DAILY Ragland 3 1,000 Mg Softgel (Ragland-3 Fatty Acids/Fish Oil) 1 Each Capsule 1 Cap PO DAILY Multivitamins With Minerals (Multivitamin With Minerals) 1 Each Tablet 1 Tab PO DAILY Linzess (Linaclotide) 290 Mcg Capsule 290 Mcg PO DAILY Hydroxyzine Hcl 50 Mg Tablet 50 Mg PO PRN Q8HRS PRN Folic Acid 1 Mg Tablet 1 Mg PO DAILY Docusate Sodium 100 Mg Capsule 100 Mg PO BID PRN Clotrimazole 15 Gm Cream..g. 1 Peyton TP BID PRN Clonidine Hcl 0.1 Mg Tablet 0.1 Mg PO BID PRN Give for SBP>160 Vitamin D (Cholecalciferol (Vitamin D3)) 1,000 Unit Capsule 1,000 Unit PO DAILY Capsaicin 60 Gm Cream..g. 1 Peyton TP PRN Q8HRS PRN Aspirin 81 Mg Tab.chew 81 Mg PO DAILY Acetaminophen 500 Mg Tablet 500 Mg PO PRN Q6HRS PRN Quetiapine Fumarate 25 Mg Tablet 12.5 Mg PO PRN Q8HRS PRN Maalox Advanced Suspension (Mag Hydrox/Aluminum Hyd/Simeth) 355 Ml Oral.susp 30 Ml PO PRN Q4HRS PRN Trazodone Hcl 100 Mg Tablet 100 Mg PO HS PRN Tramadol Hcl (Tramadol HCl) 50 Mg Tablet 50 Mg PO PRN Q6HRS PRN Propranolol Hcl 10 Mg Tablet 10 Mg PO BID Mirtazapine 7.5 Mg Tablet 7.5 Mg PO HS Metformin Hcl 500 Mg Tablet 500 Mg PO BIDWMEALS Lisinopril 2.5 Mg Tablet 2.5 Mg PO DAILY Lamotrigine 200 Mg Tablet 200 Mg PO HS Famotidine 20 Mg Tablet 20 Mg PO BID Carbidopa-Levodopa 25-100 Tab (Carbidopa/Levodopa) 1 Each Tablet 1.5 Tab PO TID Sinemet 25-100 Mg Tablet (Carbidopa/Levodopa) 1 Each Tablet 2 Tab PO HS Buspirone Hcl 5 Mg Tablet 5 Mg PO TID Buspirone Hcl 15 Mg Tablet 15 Mg PO TID Seroquel (Quetiapine Fumarate) 200 Mg Tablet 200 Mg PO HS Cymbalta (Duloxetine Hcl) 60 Mg Capsule. 60 Mg PO BID I have reviewed the current psychotropics carefully including drug interactions. Risk benefit ratio favors no change other than as noted in my dictated progress note. Diagnosis: Problems: (1) Anxiety disorder (2) Major depressive disorder, recurrent episode (3) Impulse control disorder (4) Bipolar affective, mixed LUTHER WARNER MD Jul 25, 2018 22:26
[2018-07-26] MEDS: LINACLOTIDE 145 MCG CAPSULE. PO SCH (05:01)
[2018-07-26 05:48] VITALS: BP 96/61
--- NOTE | 2018-07-26 06:00 | NUR ---
Pt c/o feeling anxious this morning when this nurse entered room to obtain morning vitals. PRN Ativan administered as ordered at this time.
[2018-07-26] MEDS: LORazepam 0.5 MG TABLET PO PRN ×3 (06:01→16:50)
[2018-07-26 07:56] LABS: BASO # 0.1 x10^3/uL (0.0-0.2); BASO % 1 % (0-3); EOS # 0.2 x10^3/uL (0.0-0.7); EOS % 3 % (0-3); HEMATOCRIT 46.7 % (39.0-53.0); LYMPH % 27 % (24-48); MEAN CORPUSCULAR HEMOGLOBIN 32 pg (25-35); MEAN CORPUSCULAR HGB CONC 34 g/dL (31-37); MEAN CORPUSCULAR VOLUME 93 fL (79-100); MONO # 0.4 x10^3/uL (0.0-1.1); MONO % 6 % (0-9); NEUT # 4.7 x10^3uL (1.8-7.7); NEUT % 64 % (31-73); PLATELET COUNT 197 x10^3/uL (140-400); RED BLOOD COUNT 5.05 x10^6/uL (4.30-5.70); RED CELL DISTRIBUTION WIDTH 13.4 % (11.5-14.5); WHITE BLOOD COUNT 7.4 x10^3/uL (4.0-11.0)
[2018-07-26] MEDS: CHOLECALCIFEROL (VITAMIN D3) 1,000 UNIT TABLET PO SCH (07:57)
[2018-07-26] MEDS: MULTIVITAMIN with MINERAL TABLET. PO SCH (07:58)
[2018-07-26] MEDS: CARBIDOPA/LEVODOPA 25/100MG TABLET PO SCH ×4 (07:58→19:10)
[2018-07-26] MEDS: metFORMIN 500 MG TABLET PO SCH ×2 (07:58→16:50)
[2018-07-26] MEDS: ASPIRIN 81 MG TAB.CHEW PO SCH (07:58)
[2018-07-26] MEDS: OMEGA-3 FATTY ACIDS/FISH OIL 1,000 MG CAPSULE. PO SCH (07:59)
[2018-07-26] MEDS: DULoxetine HCL 60 MG CAPSULE.DR PO SCH (07:59)
[2018-07-26] MEDS: THIAMINE 100 MG TABLET. PO SCH (07:59)
[2018-07-26] MEDS: PROPRANOLOL 10 MG TABLET. PO SCH ×2 (07:59→16:50)
[2018-07-26] MEDS: FAMOTIDINE 20 MG TABLET PO SCH ×2 (07:59→19:10)
[2018-07-26] MEDS: FOLIC ACID 1 MG TABLET PO SCH (07:59)
[2018-07-26] MEDS: LISINOPRIL 2.5 MG TABLET PO SCH (07:59)
[2018-07-26] MEDS: busPIRone 10 MG TABLET. PO SCH ×3 (07:59→19:09)
[2018-07-26 08:24] LABS: ALBUMIN 3.8 g/dL (3.4-5.0); ALBUMIN/GLOBULIN RATIO 1.2 (1.0-1.7); CALCIUM 9.3 mg/dL (8.5-10.1); CREATININE 0.8 mg/dL (0.7-1.3); GFR 99.6; POTASSIUM 4.4 mmol/L (3.5-5.1); TOTAL BILIRUBIN 0.4 mg/dL (0.2-1.0); TOTAL PROTEIN 7.1 g/dL (6.4-8.2)
--- NOTE | 2018-07-26 09:27 | NUR ---
Pt located in dining room at time of medication administration. Pt calm, pleasant and interactive with this nurse. Compliant with medications. Denied anxiety, SI/HI at this time.
--- NOTE | 2018-07-26 09:30 | NUR ---
[facility] returned call for patient review. Berny, agricultural sales representative at [phone] stated patient retro review needs to be submitted after patient is discharged . [place] rep asked if hospital able to use [facility], this RN stated no due to the fact that we used it previously and the information was not submitted correctly and caused billing issues, informed agricultural sales representative this facility needs to speak directly to someone in regards to Behavioral Health authorizations. Reviewed with Berny that patient came in SI and is currently having thoughts of hurting himself. Rep stated " that is not a problem, it should be a quick authorization post discharge." Information post discharge to be submitted as follows: * [facility] Attn Appeals * Dates of Service to FAX [phone]
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
[2018-07-26 15:48] VITALS: BP 107/72
[2018-07-26] MEDS: ATORVASTATIN CALCIUM 20 MG TABLET PO SCH (19:09)
[2018-07-26] MEDS: lamoTRIgine 100 MG TABLET. PO SCH (19:10)
[2018-07-26] MEDS: lamoTRIgine 25 MG TABLET. PO SCH (19:10)
[2018-07-26] MEDS: QUEtiapine 100 MG TABLET. PO SCH (19:10)
[2018-07-26] MEDS: MIRTAZAPINE 7.5 MG TABLET. PO SCH (19:10)
[2018-07-26] MEDS: traZODone 100 MG TABLET. PO PRN (19:11)
--- NOTE | 2018-07-26 21:19 | NUR ---
Pt sitting in day room watching television at shift change. Pt calm, pleasant, and interactive. Pt cooperative with assessment and compliant with medications.
--- NOTE | 2018-07-26 21:50 | PDOC ---
Exam Note: Kal Note: Please also refer to the separate dictated note~for this date of service dictated separately.~Patient seen individually. Discussed the patient with Nursing staff reviewed the chart.~Reviewed interim history and current functioning. Reviewed vital signs,~Labs/ Radiology~and current medications noted below. Continue current treatment with the changes noted in the dictated addendum note Assessment: Vital Signs: Vital Signs Date Time Temp Pulse Resp B/P (MAP) Pulse Ox O2 Delivery O2 Flow Rate FiO2 07/26/18 16:50 90 107/72 07/26/18 15:48 98.1 17 96 Room Air I&O Intake and Output 07/26/18 06:59 Intake Total 1180 ml Balance 1180 ml Intake Oral 1180 ml # Voids 1 Labs: Laboratory Tests Test 07/26/18 07:07 07/26/18 07:28 Glucose (Fingerstick) 125 mg/dL (70-99) H White Blood Count 7.4 x10^3/uL (4.0-11.0) Red Blood Count 5.05 x10^6/uL (4.30-5.70) Hemoglobin 16.0 g/dL (13.0-17.5) Hematocrit 46.7 % (39.0-53.0) Mean Corpuscular Volume 93 fL (79-100) Mean Corpuscular Hemoglobin 32 pg (25-35) Mean Corpuscular Hemoglobin Concent 34 g/dL (31-37) Red Cell Distribution Width 13.4 % (11.5-14.5) Platelet Count 197 x10^3/uL (140-400) Neutrophils (%) (Auto) 64 % (31-73) Lymphocytes (%) (Auto) 27 % (24-48) Monocytes (%) (Auto) 6 % (0-9) Eosinophils (%) (Auto) 3 % (0-3) Basophils (%) (Auto) 1 % (0-3) Neutrophils # (Auto) 4.7 x10^3uL (1.8-7.7) Lymphocytes # (Auto) 2.0 x10^3/uL (1.0-4.8) Monocytes # (Auto) 0.4 x10^3/uL (0.0-1.1) Eosinophils # (Auto) 0.2 x10^3/uL (0.0-0.7) Basophils # (Auto) 0.1 x10^3/uL (0.0-0.2) Sodium Level 143 mmol/L (136-145) Potassium Level 4.4 mmol/L (3.5-5.1) Chloride Level 107 mmol/L (98-107) Carbon Dioxide Level 30 mmol/L (21-32) Anion Gap 6 (6-14) Blood Urea Nitrogen 12 mg/dL (8-26) Creatinine 0.8 mg/dL (0.7-1.3) Estimated GFR (Cockcroft-Gault) 99.6 BUN/Creatinine Ratio 15 (6-20) Glucose Level 119 mg/dL (70-99) H Calcium Level 9.3 mg/dL (8.5-10.1) Total Bilirubin 0.4 mg/dL (0.2-1.0) Aspartate Amino Transferase (AST) 38 U/L (15-37) H Alanine Aminotransferase (ALT) 68 U/L (16-63) H Alkaline Phosphatase 86 U/L (46-116) Total Protein 7.1 g/dL (6.4-8.2) Albumin 3.8 g/dL (3.4-5.0) Albumin/Globulin Ratio 1.2 (1.0-1.7) Current Medications: Meds: Current Medications Mirtazapine (Remeron) 7.5 mg HS PO ; Start 07/19/18 at 21:00; Stop 07/19/18 at 21:00; Status DC Non-Formulary Medication (Buspirone Hcl ) 5 mg TID PO ; Start 07/19/18 at 09:00 ; Stop 07/19/18 at 09:00; Status DC Non-Formulary Medication (Buspirone Hcl ) 15 mg TID PO ; Start 07/19/18 at 09:00 ; Stop 07/19/18 at 09:00; Status DC Non-Formulary Medication (Duloxetine Hcl (Cymbalta)) 60 mg BID PO ; Start at 09:00; Stop 07/19/18 at 09:00; Status DC Hydroxyzine HCl (Atarax) 50 mg PRN Q8HRS PRN PO ANXIETY / AGITATION Last administered on 07/19/18at 09:26; Start 07/18/18 at 23:00 Non-Formulary Medication (Lamotrigine ) 200 mg HS PO ; Start 07/19/18 at 21:00; Stop 07/19/18 at 21:00; Status DC Quetiapine Fumarate (SEROquel) 12.5 mg PRN Q8HRS PRN PO ANXIETY / AGITATION; Start 07/18/18 at 23:00 Non-Formulary Medication (Quetiapine Fumarate (Seroquel)) 200 mg HS PO ; Start 07/19/18 at 21:00; Stop 07/19/18 at 21:00; Status DC Trazodone HCl (Desyrel) 100 mg PRN QHS PRN PO INSOMNIA Last administered on 07/26at 19:11; Start 07/18/18 at 23:00 Atorvastatin Calcium (Lipitor) 20 mg QHS PO ; Start 07/19/18 at 21:00; Stop at 21:00; Status DC Carbidopa/Levodopa (Sinemet 25/100) 1.5 tab TID PO Last administered on at 08:05; Start 07/19/18 at 09:00; Stop 07/19/18 at 11:35; Status DC Carbidopa/Levodopa (Sinemet 25/100) 2 tab HS PO ; Start 07/19/18 at 21:00; Stop 07/19/18 at 21:00; Status DC Clonidine HCl (Catapres) 0.1 mg PRN BID PRN PO HYPERTENSION, SEE COMMENTS; Start 07/18/18 at 23:00 Tramadol HCl (Ultram) 50 mg PRN Q6HRS PRN PO PAIN; Start 07/18/18 at 23:00 Acetaminophen (Tylenol) 500 mg PRN Q6HRS PRN PO PAIN / TEMP Last administered on 07/22/18at 12:54; Start 07/18/18 at 23:00 Aspirin (Children'S Aspirin) 81 mg DAILYWBKFT PO Last administered on 07/26/18at 07:58; Start 07/19/18 at 08:00 Capsaicin (Zostrix) 1 peyton PRN Q8HRS PRN TP Joint Pain; Start 07/18/18 at 23:00 Vitamin D (Vitamin D3) 1,000 unit DAILY PO Last administered on 07/26/18at 07:57 ; Start 07/19/18 at 09:00 Clotrimazole (Lotrimin) 1 peyton PRN BID PRN TP RASH; Start 07/18/18 at 23:00 Docusate Sodium (Colace) 100 mg PRN BID PRN PO CONSTIPATION; Start 07/18/18 at 23:00 Non-Formulary Medication (Famotidine ) 20 mg BID PO ; Start 07/19/18 at 09:00; Stop 07/19/18 at 09:00; Status DC Folic Acid (Folic Acid) 1 mg DAILY PO Last administered on 07/26/18 07:59; Start 07/19/18 at 09:00 Linaclotide (Linzess) 290 mcg DAILY07 PO Last administered on 07/26/18 05:01; Start 07/19/18 at 07:00 Lisinopril (Prinivil) 2.5 mg DAILY PO Last administered on 07/25/18 07:52; Start 07/19/18 at 09:00 Al Hydroxide/Mg Hydroxide (Mylanta Plus Xs) 30 ml PRN Q4HRS PRN PO DYSPEPSIA; Start 07/18/18 at 23:00 Metformin HCl (Glucophage) 500 mg BIDWMEALS PO Last administered on 07/26/18 16 :50; Start 07/19/18 at 08:00 Multivitamins/ Calcium (Thera-M Plus) 1 tab DAILY PO Last administered on 07:58; Start 07/19/18 at 09:00 Fish Oil (Fish Oil) 1,000 mg DAILY PO Last administered on 07/26/18 07:59; Start 07/19/18 at 09:00 Non-Formulary Medication (Propranolol Hcl ) 10 mg BID PO ; Start 07/19/18 at 09: 00; Stop 07/19/18 at 09:00; Status DC Thiamine HCl (Vitamin B-1) 100 mg DAILY PO Last administered on 07/26/18 07:59 ; Start 07/19/18 at 09:00 Magnesium Hydroxide (Milk Of Magnesia) 2,400 mg PRN QHS PRN PO CONSTIPATION; Start 07/18/18 at 23:00 Atorvastatin Calcium (Lipitor) 20 mg QHS PO Last administered on 07/26/18at 19:09 ; Start 07/18/18 at 23:30 Carbidopa/Levodopa (Sinemet 25/100) 2 tab HS PO Last administered on 07/26/18 19:10; Start 07/18/18 at 23:30 Mirtazapine (Remeron) 7.5 mg HS PO Last administered on 07/26/18 19:10; Start 07/18/18 at 23:30 Buspirone HCl (Buspar) 5 mg TID PO Last administered on 07/19/18 08:05; Start 07/18/18 at 23:30; Stop 07/19/18 at 11:35; Status DC Buspirone HCl (Buspar) 15 mg TID PO Last administered on 07/19/18 08:06; Start 07/18/18 at 23:30; Stop 07/19/18 at 11:35; Status DC Duloxetine HCl (Cymbalta) 60 mg BID PO Last administered on 07/23/18 07:34; Start 07/18/18 at 23:30; Stop 07/23/18 at 16:47; Status DC Famotidine (Pepcid) 20 mg BID PO Last administered on 07/26/18 19:10; Start at 23:30 Lamotrigine (LaMICtal) 200 mg HS PO Last administered on 07/21/18 20:23; Start 07/18/18 at 23:30; Stop 07/22/18 at 07:07; Status DC Propranolol HCl (Inderal) 10 mg BID PO ; Start 07/18/18 at 23:30; Stop 07/18/18 at 23:54; Status DC Quetiapine Fumarate (SEROquel) 200 mg HS PO Last administered on 07/26/18 19:10 ; Start 07/18/18 at 23:30 Propranolol HCl (Inderal) 10 mg BID94 PO Last administered on 07/26/18 16:50; Start 07/19/18 at 09:00 Lorazepam (Ativan) 0.25 mg PRN Q4HRS PRN PO ANXIETY / AGITATION Last administered on 07/23/18 15:59; Start 07/19/18 at 10:45; Stop 07/23/18 at 16:47 ; Status DC Buspirone HCl (Buspar) 20 mg TID PO Last administered on 07/24/18 20:03; Start 07/19/18 at 14:00; Stop 07/25/18 at 08:53; Status DC Carbidopa/Levodopa (Sinemet 25/100) 1.5 tab TIDWMEALS PO Last administered on 16:49; Start 07/19/18 at 12:00 Lamotrigine (LaMICtal) 25 mg HS PO Last administered on 07/23/18 20:26; Start 07/21/18 at 21:00; Stop 07/23/18 at 23:00; Status DC Lamotrigine (LaMICtal) 50 mg HS PO Last administered on 07/26/18 19:10; Start 07/24/18 at 21:00; Stop 07/28/18 at 21:01 Lamotrigine (LaMICtal) 200 mg HS PO Last administered on 07/26/18 19:10; Start 07/22/18 at 21:00 Duloxetine HCl (Cymbalta) 60 mg DAILY PO Last administered on 07/26/18 07:59; Start 07/24/18 at 09:00 Lorazepam (Ativan) 0.5 mg PRN Q4HRS PRN PO ANXIETY / AGITATION Last administered on 07/26/18 16:50; Start 07/23/18 at 17:00 Buspirone HCl (Buspar) 20 mg TID PO Last administered on 07/26/18 19:09; Start 07/25/18 at 09:00 Lamotrigine (LaMICtal) 75 mg QHS PO ; Start 07/29/18 at 21:00; Stop 08/02/18 at 21 :01 Lamotrigine (LaMICtal) 100 mg QHS PO ; Start 08/03/18 at 21:00 Active Scripts Active Reported Atorvastatin Calcium 20 Mg Tablet 20 Mg PO QHS B-1 (Thiamine HCl) 100 Mg Tablet 100 Mg PO DAILY Bronson 3 1,000 Mg Softgel (Bronson-3 Fatty Acids/Fish Oil) 1 Each Capsule 1 Cap PO DAILY Multivitamins With Minerals (Multivitamin With Minerals) 1 Each Tablet 1 Tab PO DAILY Linzess (Linaclotide) 290 Mcg Capsule 290 Mcg PO DAILY Hydroxyzine Hcl 50 Mg Tablet 50 Mg PO PRN Q8HRS PRN Folic Acid 1 Mg Tablet 1 Mg PO DAILY Docusate Sodium 100 Mg Capsule 100 Mg PO BID PRN Clotrimazole 15 Gm Cream..g. 1 Peyton TP BID PRN Clonidine Hcl 0.1 Mg Tablet 0.1 Mg PO BID PRN Give for SBP>160 Vitamin D (Cholecalciferol (Vitamin D3)) 1,000 Unit Capsule 1,000 Unit PO DAILY Capsaicin 60 Gm Cream..g. 1 Peyton TP PRN Q8HRS PRN Aspirin 81 Mg Tab.chew 81 Mg PO DAILY Acetaminophen 500 Mg Tablet 500 Mg PO PRN Q6HRS PRN Quetiapine Fumarate 25 Mg Tablet 12.5 Mg PO PRN Q8HRS PRN Maalox Advanced Suspension (Mag Hydrox/Aluminum Hyd/Simeth) 355 Ml Oral.susp 30 Ml PO PRN Q4HRS PRN Trazodone Hcl 100 Mg Tablet 100 Mg PO HS PRN Tramadol Hcl (Tramadol HCl) 50 Mg Tablet 50 Mg PO PRN Q6HRS PRN Propranolol Hcl 10 Mg Tablet 10 Mg PO BID Mirtazapine 7.5 Mg Tablet 7.5 Mg PO HS Metformin Hcl 500 Mg Tablet 500 Mg PO BIDWMEALS Lisinopril 2.5 Mg Tablet 2.5 Mg PO DAILY Lamotrigine 200 Mg Tablet 200 Mg PO HS Famotidine 20 Mg Tablet 20 Mg PO BID Carbidopa-Levodopa 25-100 Tab (Carbidopa/Levodopa) 1 Each Tablet 1.5 Tab PO TID Sinemet 25-100 Mg Tablet (Carbidopa/Levodopa) 1 Each Tablet 2 Tab PO HS Buspirone Hcl 5 Mg Tablet 5 Mg PO TID Buspirone Hcl 15 Mg Tablet 15 Mg PO TID Seroquel (Quetiapine Fumarate) 200 Mg Tablet 200 Mg PO HS Cymbalta (Duloxetine Hcl) 60 Mg Capsule. 60 Mg PO BID I have reviewed the current psychotropics carefully including drug interactions. Risk benefit ratio favors no change other than as noted in my dictated progress note. Diagnosis: Problems: (1) Anxiety disorder (2) Major depressive disorder, recurrent episode (3) Impulse control disorder (4) Bipolar affective, mixed LUTHER WARNER MD Jul 26, 2018 21:50
--- NOTE | 2018-07-26 22:35 | PN ---
DATE: 07/24/2018 This is a late entry for 07/24/2018 covers elements not covered in my initial note. SUBJECTIVE: I met with the patient in the evening. The patient slept 7-3/4 hours previous night. He remains somewhat withdrawn, compliant with medications, pleasant. Still awaiting records from [facility]. The previous day, he voiced suicidal ideation. I processed this with him at length individually in the evening. He denied suicidal ideation. He remains anxious, has received Ativan continuously even though it is p.r.n. REVIEW OF SYSTEMS: Impaired ambulation secondary to his Parkinson's. No CV, , pulmonary, eye system symptoms on review. MENTAL STATUS EXAM: Reasonably oriented. Speech has some latency, coherent. Abstraction fair, computation impaired, language function intact, attention span short. Mood and affect somewhat withdrawn. LABORATORY DATA: Reviewed. IMPRESSION: Unchanged from initial note. PLAN: No change from initial note. LUTHER WARNER MD DR: ALMA DELIA/parmjit JOB#: [id number] / [id number]
--- NOTE | 2018-07-26 22:39 | PN ---
DATE: 07/25/2018 This late entry for 07/25/2018 covers elements not covered in my initial note. SUBJECTIVE: I met with the patient in the evening and staffed with the entire team earlier in the day and the patient's , Jacquelyn, attended the treatment team meeting. The patient was to attend, we invited him again, staff went out to get him, but he declined. Appetite 90%, slept 7-3/4 hours. Denies suicidal or homicidal ideation. I have reviewed the records from [facility] with a diagnosis of depression and anxiety. REVIEW OF SYSTEMS: Impaired ambulation with walker. No CV, , pulmonary, eye system symptoms on review. MENTAL STATUS EXAM: Oriented reasonably. Speech has some latency, coherent. Abstraction fair, computation impaired, language function intact. Mood and affect still somewhat withdrawn. LABORATORY DATA: Reviewed. IMPRESSION: Unchanged from initial note. PLAN: No change from initial note. LUTHER WARNER MD DR: ALMA DELIA/parmjit JOB#: [id number] / [id number]
[2018-07-27 05:47] VITALS: BP 105/68
[2018-07-27] MEDS: LINACLOTIDE 145 MCG CAPSULE. PO SCH (06:02)
[2018-07-27] MEDS: LORazepam 0.5 MG TABLET PO PRN ×3 (06:02→18:27)
[2018-07-27] MEDS: LISINOPRIL 2.5 MG TABLET PO SCH (07:57)
[2018-07-27] MEDS: CHOLECALCIFEROL (VITAMIN D3) 1,000 UNIT TABLET PO SCH (07:57)
[2018-07-27] MEDS: FAMOTIDINE 20 MG TABLET PO SCH ×2 (07:57→19:16)
[2018-07-27] MEDS: busPIRone 10 MG TABLET. PO SCH ×3 (07:57→19:17)
[2018-07-27] MEDS: OMEGA-3 FATTY ACIDS/FISH OIL 1,000 MG CAPSULE. PO SCH (07:57)
[2018-07-27] MEDS: DULoxetine HCL 60 MG CAPSULE.DR PO SCH (07:58)
[2018-07-27] MEDS: metFORMIN 500 MG TABLET PO SCH ×2 (07:58→18:29)
[2018-07-27] MEDS: PROPRANOLOL 10 MG TABLET. PO SCH ×2 (07:58→18:28)
[2018-07-27] MEDS: CARBIDOPA/LEVODOPA 25/100MG TABLET PO SCH ×4 (07:58→19:16)
[2018-07-27] MEDS: ASPIRIN 81 MG TAB.CHEW PO SCH (07:58)
[2018-07-27] MEDS: MULTIVITAMIN with MINERAL TABLET. PO SCH (07:58)
[2018-07-27] MEDS: THIAMINE 100 MG TABLET. PO SCH (07:58)
[2018-07-27] MEDS: FOLIC ACID 1 MG TABLET PO SCH (07:58)
--- NOTE | 2018-07-27 09:15 | NUR ---
Behavior Intervention Response and Plan: BIRP Note: Behavior: Assumed Care of patient, patient located in Dining Room at shift change. Patient exhibited the following behavior Attention Seeking, Medication Seeking, Compliant. Brief assessment on rounds of vital signs, medication needs, lab studies, and pain. Treatment plan problems . Intervention: Patient assessed and the following interventions initiated safety checks 15 Minute Checks Cognitive Assessment , Head to toe Assessment , Medications. Response: After interactions and interventions patient responded in the following manner, Somatic , Anxious, compliant. Continue to assess behaviors and condition will continue to monitor throughout the shift as needed. Patient educated on ADL's, and hand hygiene. 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 Continue to assess patient for changes in above assessment. Monitor for medication needs, pain, and safety concerns. Hourly rounding performed to ensure safe environment.
[2018-07-27 14:19] LABS: ALBUMIN 3.9 g/dL (3.4-5.0); DIRECT BILIRUBIN 0.1 mg/dL (0.0-0.2); TOTAL BILIRUBIN 0.3 mg/dL (0.2-1.0)
[2018-07-27 15:32] VITALS: BP 139/82
--- NOTE | 2018-07-27 19:02 | NUR ---
pt up adl to meals and out to day room. compliant with meds and cares. c/o intermittent anxiety relieved with Ativan.
[2018-07-27] MEDS: lamoTRIgine 100 MG TABLET. PO SCH (19:16)
[2018-07-27] MEDS: lamoTRIgine 25 MG TABLET. PO SCH (19:16)
[2018-07-27] MEDS: QUEtiapine 100 MG TABLET. PO SCH (19:16)
[2018-07-27] MEDS: MIRTAZAPINE 7.5 MG TABLET. PO SCH (19:17)
[2018-07-27] MEDS: ATORVASTATIN CALCIUM 20 MG TABLET PO SCH (19:17)
[2018-07-27] MEDS: traZODone 100 MG TABLET. PO PRN (19:19)
--- NOTE | 2018-07-27 21:51 | PDOC ---
Exam Note: Kal Note: Please also refer to the separate dictated note~for this date of service dictated separately.~Patient seen individually. Discussed the patient with Nursing staff reviewed the chart.~Reviewed interim history and current functioning. Reviewed vital signs,~Labs/ Radiology~and current medications noted below. Continue current treatment with the changes noted in the dictated addendum note Assessment: Vital Signs: Vital Signs Date Time Temp Pulse Resp B/P (MAP) Pulse Ox O2 Delivery O2 Flow Rate FiO2 07/27/18 18:28 82 139/82 07/27/18 15:32 97.6 16 97 07/27/18 05:47 Room Air I&O Intake and Output 07/27/18 06:59 Intake Total 960 ml Balance 960 ml Intake Oral 960 ml Labs: Laboratory Tests Test 07/27/18 07:46 07/27/18 14:00 Glucose (Fingerstick) 128 mg/dL (70-99) H Total Bilirubin 0.3 mg/dL (0.2-1.0) Direct Bilirubin 0.1 mg/dL (0.0-0.2) Aspartate Amino Transferase (AST) 26 U/L (15-37) Alanine Aminotransferase (ALT) 28 U/L (16-63) Alkaline Phosphatase 86 U/L (46-116) Total Protein 7.0 g/dL (6.4-8.2) Albumin 3.9 g/dL (3.4-5.0) Current Medications: Meds: Current Medications Mirtazapine (Remeron) 7.5 mg HS PO ; Start 07/19/18 at 21:00; Stop 07/19/18 at 21:00; Status DC Non-Formulary Medication (Buspirone Hcl ) 5 mg TID PO ; Start 07/19/18 at 09:00 ; Stop 07/19/18 at 09:00; Status DC Non-Formulary Medication (Buspirone Hcl ) 15 mg TID PO ; Start 07/19/18 at 09:00 ; Stop 07/19/18 at 09:00; Status DC Non-Formulary Medication (Duloxetine Hcl (Cymbalta)) 60 mg BID PO ; Start at 09:00; Stop 07/19/18 at 09:00; Status DC Hydroxyzine HCl (Atarax) 50 mg PRN Q8HRS PRN PO ANXIETY / AGITATION Last administered on 07/19/18at 09:26; Start 07/18/18 at 23:00 Non-Formulary Medication (Lamotrigine ) 200 mg HS PO ; Start 07/19/18 at 21:00; Stop 07/19/18 at 21:00; Status DC Quetiapine Fumarate (SEROquel) 12.5 mg PRN Q8HRS PRN PO ANXIETY / AGITATION; Start 07/18/18 at 23:00 Non-Formulary Medication (Quetiapine Fumarate (Seroquel)) 200 mg HS PO ; Start 07/19/18 at 21:00; Stop 07/19/18 at 21:00; Status DC Trazodone HCl (Desyrel) 100 mg PRN QHS PRN PO INSOMNIA Last administered on 07/27at 19:19; Start 07/18/18 at 23:00; Stop 07/27/18 at 21:20; Status DC Atorvastatin Calcium (Lipitor) 20 mg QHS PO ; Start 07/19/18 at 21:00; Stop at 21:00; Status DC Carbidopa/Levodopa (Sinemet 25/100) 1.5 tab TID PO Last administered on at 08:05; Start 07/19/18 at 09:00; Stop 07/19/18 at 11:35; Status DC Carbidopa/Levodopa (Sinemet 25/100) 2 tab HS PO ; Start 07/19/18 at 21:00; Stop 07/19/18 at 21:00; Status DC Clonidine HCl (Catapres) 0.1 mg PRN BID PRN PO HYPERTENSION, SEE COMMENTS; Start 07/18/18 at 23:00 Tramadol HCl (Ultram) 50 mg PRN Q6HRS PRN PO PAIN; Start 07/18/18 at 23:00 Acetaminophen (Tylenol) 500 mg PRN Q6HRS PRN PO PAIN / TEMP Last administered on 07/22/18at 12:54; Start 07/18/18 at 23:00 Aspirin (Children'S Aspirin) 81 mg DAILYWBKFT PO Last administered on 07/27/18at 07:58; Start 07/19/18 at 08:00 Capsaicin (Zostrix) 1 peyton PRN Q8HRS PRN TP Joint Pain; Start 07/18/18 at 23:00 Vitamin D (Vitamin D3) 1,000 unit DAILY PO Last administered on 07/27/18 07:57 ; Start 07/19/18 at 09:00 Clotrimazole (Lotrimin) 1 peyton PRN BID PRN TP RASH; Start 07/18/18 at 23:00 Docusate Sodium (Colace) 100 mg PRN BID PRN PO CONSTIPATION; Start 07/18/18 at 23:00 Non-Formulary Medication (Famotidine ) 20 mg BID PO ; Start 07/19/18 at 09:00; Stop 07/19/18 at 09:00; Status DC Folic Acid (Folic Acid) 1 mg DAILY PO Last administered on 07/27/18 07:58; Start 07/19/18 at 09:00 Linaclotide (Linzess) 290 mcg DAILY07 PO Last administered on 07/27/18 06:02; Start 07/19/18 at 07:00 Lisinopril (Prinivil) 2.5 mg DAILY PO Last administered on 07/27/18 07:57; Start 07/19/18 at 09:00 Al Hydroxide/Mg Hydroxide (Mylanta Plus Xs) 30 ml PRN Q4HRS PRN PO DYSPEPSIA; Start 07/18/18 at 23:00 Metformin HCl (Glucophage) 500 mg BIDWMEALS PO Last administered on 07/27/18 18 :29; Start 07/19/18 at 08:00 Multivitamins/ Calcium (Thera-M Plus) 1 tab DAILY PO Last administered on 07:58; Start 07/19/18 at 09:00 Fish Oil (Fish Oil) 1,000 mg DAILY PO Last administered on 07/27/18 07:57; Start 07/19/18 at 09:00 Non-Formulary Medication (Propranolol Hcl ) 10 mg BID PO ; Start 07/19/18 at 09: 00; Stop 07/19/18 at 09:00; Status DC Thiamine HCl (Vitamin B-1) 100 mg DAILY PO Last administered on 07/27/18 07:58 ; Start 07/19/18 at 09:00 Magnesium Hydroxide (Milk Of Magnesia) 2,400 mg PRN QHS PRN PO CONSTIPATION; Start 07/18/18 at 23:00 Atorvastatin Calcium (Lipitor) 20 mg QHS PO Last administered on 07/27/18 19:17 ; Start 07/18/18 at 23:30 Carbidopa/Levodopa (Sinemet 25/100) 2 tab HS PO Last administered on 07/27/18 19:16; Start 07/18/18 at 23:30 Mirtazapine (Remeron) 7.5 mg HS PO Last administered on 07/27/18 19:17; Start 07/18/18 at 23:30 Buspirone HCl (Buspar) 5 mg TID PO Last administered on 07/19/18 08:05; Start 07/18/18 at 23:30; Stop 07/19/18 at 11:35; Status DC Buspirone HCl (Buspar) 15 mg TID PO Last administered on 07/19/18 08:06; Start 07/18/18 at 23:30; Stop 07/19/18 at 11:35; Status DC Duloxetine HCl (Cymbalta) 60 mg BID PO Last administered on 07/23/18 07:34; Start 07/18/18 at 23:30; Stop 07/23/18 at 16:47; Status DC Famotidine (Pepcid) 20 mg BID PO Last administered on 07/27/18 19:16; Start at 23:30 Lamotrigine (LaMICtal) 200 mg HS PO Last administered on 07/21/18 20:23; Start 07/18/18 at 23:30; Stop 07/22/18 at 07:07; Status DC Propranolol HCl (Inderal) 10 mg BID PO ; Start 07/18/18 at 23:30; Stop 07/18/18 at 23:54; Status DC Quetiapine Fumarate (SEROquel) 200 mg HS PO Last administered on 07/27/18 19:16 ; Start 07/18/18 at 23:30 Propranolol HCl (Inderal) 10 mg BID94 PO Last administered on 07/27/18 18:28; Start 07/19/18 at 09:00 Lorazepam (Ativan) 0.25 mg PRN Q4HRS PRN PO ANXIETY / AGITATION Last administered on 07/23/18at 15:59; Start 07/19/18 at 10:45; Stop 07/23/18 at 16:47 ; Status DC Buspirone HCl (Buspar) 20 mg TID PO Last administered on 07/24/18 20:03; Start 07/19/18 at 14:00; Stop 07/25/18 at 08:53; Status DC Carbidopa/Levodopa (Sinemet 25/100) 1.5 tab TIDWMEALS PO Last administered on 18:27; Start 07/19/18 at 12:00 Lamotrigine (LaMICtal) 25 mg HS PO Last administered on 07/23/18 20:26; Start 07/21/18 at 21:00; Stop 07/23/18 at 23:00; Status DC Lamotrigine (LaMICtal) 50 mg HS PO Last administered on 07/27/18 19:16; Start 07/24/18 at 21:00; Stop 07/28/18 at 21:01 Lamotrigine (LaMICtal) 200 mg HS PO Last administered on 07/27/18 19:16; Start 07/22/18 at 21:00 Duloxetine HCl (Cymbalta) 60 mg DAILY PO Last administered on 07/27/18 07:58; Start 07/24/18 at 09:00 Lorazepam (Ativan) 0.5 mg PRN Q4HRS PRN PO ANXIETY / AGITATION Last administered on 07/27/18 18:27; Start 07/23/18 at 17:00 Buspirone HCl (Buspar) 20 mg TID PO Last administered on 07/27/18 19:17; Start 07/25/18 at 09:00 Lamotrigine (LaMICtal) 75 mg QHS PO ; Start 07/29/18 at 21:00; Stop 08/02/18 at 21 :01 Lamotrigine (LaMICtal) 100 mg QHS PO ; Start 08/03/18 at 21:00 Trazodone HCl (Desyrel) 100 mg HS PO ; Start 07/28/18 at 21:00 Active Scripts Active Reported Atorvastatin Calcium 20 Mg Tablet 20 Mg PO QHS B-1 (Thiamine HCl) 100 Mg Tablet 100 Mg PO DAILY [place] 3 1,000 Mg Softgel ([place]-3 Fatty Acids/Fish Oil) 1 Each Capsule 1 Cap PO DAILY Multivitamins With Minerals (Multivitamin With Minerals) 1 Each Tablet 1 Tab PO DAILY Linzess (Linaclotide) 290 Mcg Capsule 290 Mcg PO DAILY Hydroxyzine Hcl 50 Mg Tablet 50 Mg PO PRN Q8HRS PRN Folic Acid 1 Mg Tablet 1 Mg PO DAILY Docusate Sodium 100 Mg Capsule 100 Mg PO BID PRN Clotrimazole 15 Gm Cream..g. 1 Peyton TP BID PRN Clonidine Hcl 0.1 Mg Tablet 0.1 Mg PO BID PRN Give for SBP>160 Vitamin D (Cholecalciferol (Vitamin D3)) 1,000 Unit Capsule 1,000 Unit PO DAILY Capsaicin 60 Gm Cream..g. 1 Peyton TP PRN Q8HRS PRN Aspirin 81 Mg Tab.chew 81 Mg PO DAILY Acetaminophen 500 Mg Tablet 500 Mg PO PRN Q6HRS PRN Quetiapine Fumarate 25 Mg Tablet 12.5 Mg PO PRN Q8HRS PRN Maalox Advanced Suspension (Mag Hydrox/Aluminum Hyd/Simeth) 355 Ml Oral.susp 30 Ml PO PRN Q4HRS PRN Trazodone Hcl 100 Mg Tablet 100 Mg PO HS PRN Tramadol Hcl (Tramadol HCl) 50 Mg Tablet 50 Mg PO PRN Q6HRS PRN Propranolol Hcl 10 Mg Tablet 10 Mg PO BID Mirtazapine 7.5 Mg Tablet 7.5 Mg PO HS Metformin Hcl 500 Mg Tablet 500 Mg PO BIDWMEALS Lisinopril 2.5 Mg Tablet 2.5 Mg PO DAILY Lamotrigine 200 Mg Tablet 200 Mg PO HS Famotidine 20 Mg Tablet 20 Mg PO BID Carbidopa-Levodopa 25-100 Tab (Carbidopa/Levodopa) 1 Each Tablet 1.5 Tab PO TID Sinemet 25-100 Mg Tablet (Carbidopa/Levodopa) 1 Each Tablet 2 Tab PO HS Buspirone Hcl 5 Mg Tablet 5 Mg PO TID Buspirone Hcl 15 Mg Tablet 15 Mg PO TID Seroquel (Quetiapine Fumarate) 200 Mg Tablet 200 Mg PO HS Cymbalta (Duloxetine Hcl) 60 Mg Capsule.dr 60 Mg PO BID I have reviewed the current psychotropics carefully including drug interactions. Risk benefit ratio favors no change other than as noted in my dictated progress note. Diagnosis: Problems: (1) Anxiety disorder (2) Major depressive disorder, recurrent episode (3) Impulse control disorder (4) Bipolar affective, mixed LUTHER WARNER MD Jul 27, 2018 21:51
--- NOTE | 2018-07-27 22:01 | NUR ---
Pt sitting up in the day room at shift change. Pt calm, pleasant, and interactive. Pt cooperative with assessment and compliant with medications. Pt denies SI at this time.
[2018-07-28] MEDS: LINACLOTIDE 145 MCG CAPSULE. PO SCH (05:51)
[2018-07-28] MEDS: LORazepam 0.5 MG TABLET PO PRN ×3 (05:51→17:42)
[2018-07-28 06:01] VITALS: BP 95/62
[2018-07-28] MEDS: FAMOTIDINE 20 MG TABLET PO SCH ×2 (07:27→20:04)
[2018-07-28] MEDS: MULTIVITAMIN with MINERAL TABLET. PO SCH (07:27)
[2018-07-28] MEDS: CHOLECALCIFEROL (VITAMIN D3) 1,000 UNIT TABLET PO SCH (07:27)
[2018-07-28] MEDS: OMEGA-3 FATTY ACIDS/FISH OIL 1,000 MG CAPSULE. PO SCH (07:27)
[2018-07-28] MEDS: THIAMINE 100 MG TABLET. PO SCH (07:27)
[2018-07-28] MEDS: CARBIDOPA/LEVODOPA 25/100MG TABLET PO SCH ×4 (07:27→20:05)
[2018-07-28] MEDS: metFORMIN 500 MG TABLET PO SCH ×2 (07:27→17:42)
[2018-07-28] MEDS: busPIRone 10 MG TABLET. PO SCH ×3 (07:28→20:04)
[2018-07-28] MEDS: LISINOPRIL 2.5 MG TABLET PO SCH (07:28)
[2018-07-28] MEDS: DULoxetine HCL 60 MG CAPSULE.DR PO SCH (07:28)
[2018-07-28] MEDS: FOLIC ACID 1 MG TABLET PO SCH (07:29)
[2018-07-28] MEDS: PROPRANOLOL 10 MG TABLET. PO SCH ×2 (07:29→16:00)
[2018-07-28] MEDS: ASPIRIN 81 MG TAB.CHEW PO SCH (07:29)
--- NOTE | 2018-07-28 09:42 | NUR ---
Behavior Intervention Response and Plan: BIRP Note: Behavior: Assumed Care of patient, patient located in Dining Room at shift change. Patient exhibited the following behavior Attention Seeking, Medication Seeking, Compliant. Brief assessment on rounds of vital signs, medication needs, lab studies, and pain. Treatment plan problems . Intervention: Patient assessed and the following interventions initiated safety checks 15 Minute Checks Cognitive Assessment , Head to toe Assessment , Medications. Response: After interactions and interventions patient responded in the following manner, Somatic , Anxious, compliant. Continue to assess behaviors and condition will continue to monitor throughout the shift as needed. Patient educated on ADL's, and hand hygiene. 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 Continue to assess patient for changes in above assessment. Monitor for medication needs, pain, and safety concerns. Hourly rounding performed to ensure safe environment.
[2018-07-28 16:05] VITALS: BP 99/64
--- NOTE | 2018-07-28 17:58 | NUR ---
pt up adl to meals and out to groups. c/o intermittent anxiety relieved with Ativan. compliant with meds and cares.
[2018-07-28] MEDS: QUEtiapine 100 MG TABLET. PO SCH (20:03)
[2018-07-28] MEDS: lamoTRIgine 25 MG TABLET. PO SCH (20:04)
[2018-07-28] MEDS: MIRTAZAPINE 7.5 MG TABLET. PO SCH (20:04)
[2018-07-28] MEDS: lamoTRIgine 100 MG TABLET. PO SCH (20:04)
[2018-07-28] MEDS: ATORVASTATIN CALCIUM 20 MG TABLET PO SCH (20:05)
[2018-07-28] MEDS: traZODone 100 MG TABLET. PO SCH (20:06)
--- NOTE | 2018-07-28 22:00 | PN ---
DATE: 07/26/2018 PSYCHIATRIC PROGRESS NOTE This late entry 07/26/2018 covers elements not covered in my initial note. SUBJECTIVE: I met with the patient in the evening. The patient slept 8-1/4 hours previous night, compliant with medications. Requesting his Ativan at the first opportunity that he can get it and I addressed this at length with him to try and reduce the usage. REVIEW OF SYSTEMS: No CV, , pulmonary, eye system symptoms on review. MENTAL STATUS EXAM: Reasonably oriented. Speech has some latency, coherent. Abstraction fair, computation impaired, language function intact, attention span short. Mood and affect somewhat withdrawn. I have reviewed records from [facility]. LABORATORY DATA: Reviewed. IMPRESSION: Major depressive disorder, recurrent; anxiety disorder, unspecified. Rest unchanged. PLAN: The patient is on Lamictal 250 mg at bedtime, we will increase after 5 days to 275 mg at bedtime, then 5 days later to 300 mg p.o. at bedtime. Continue rest unchanged from initial note. MAN Priya WARNER MD DR: ALMA DELIA/parmjit JOB#: [id number] / [id number]
--- NOTE | 2018-07-28 22:37 | PDOC ---
Exam Note: Kal Note: Please also refer to the separate dictated note~for this date of service dictated separately.~Patient seen individually. Discussed the patient with Nursing staff reviewed the chart.~Reviewed interim history and current functioning. Reviewed vital signs,~Labs/ Radiology~and current medications noted below. Continue current treatment with the changes noted in the dictated addendum note Assessment: Vital Signs: Vital Signs Date Time Temp Pulse Resp B/P (MAP) Pulse Ox O2 Delivery O2 Flow Rate FiO2 07/28/18 16:05 97.6 83 18 99/64 (76) 97 07/27/18 05:47 Room Air I&O Intake and Output 07/28/18 07:00 Intake Total 1320 ml Balance 1320 ml Intake Oral 1320 ml Labs: Laboratory Tests Test 07/28/18 07:12 Glucose (Fingerstick) 110 mg/dL (70-99) H Current Medications: Meds: Current Medications Mirtazapine (Remeron) 7.5 mg HS PO ; Start 07/19/18 at 21:00; Stop 07/19/18 at 21:00; Status DC Non-Formulary Medication (Buspirone Hcl ) 5 mg TID PO ; Start 07/19/18 at 09:00 ; Stop 07/19/18 at 09:00; Status DC Non-Formulary Medication (Buspirone Hcl ) 15 mg TID PO ; Start 07/19/18 at 09:00 ; Stop 07/19/18 at 09:00; Status DC Non-Formulary Medication (Duloxetine Hcl (Cymbalta)) 60 mg BID PO ; Start at 09:00; Stop 07/19/18 at 09:00; Status DC Hydroxyzine HCl (Atarax) 50 mg PRN Q8HRS PRN PO ANXIETY / AGITATION Last administered on 07/19/18at 09:26; Start 07/18/18 at 23:00 Non-Formulary Medication (Lamotrigine ) 200 mg HS PO ; Start 07/19/18 at 21:00; Stop 07/19/18 at 21:00; Status DC Quetiapine Fumarate (SEROquel) 12.5 mg PRN Q8HRS PRN PO ANXIETY / AGITATION; Start 07/18/18 at 23:00 Non-Formulary Medication (Quetiapine Fumarate (Seroquel)) 200 mg HS PO ; Start 07/19/18 at 21:00; Stop 07/19/18 at 21:00; Status DC Trazodone HCl (Desyrel) 100 mg PRN QHS PRN PO INSOMNIA Last administered on 07/27at 19:19; Start 07/18/18 at 23:00; Stop 07/27/18 at 21:20; Status DC Atorvastatin Calcium (Lipitor) 20 mg QHS PO ; Start 07/19/18 at 21:00; Stop at 21:00; Status DC Carbidopa/Levodopa (Sinemet 25/100) 1.5 tab TID PO Last administered on at 08:05; Start 07/19/18 at 09:00; Stop 07/19/18 at 11:35; Status DC Carbidopa/Levodopa (Sinemet 25/100) 2 tab HS PO ; Start 07/19/18 at 21:00; Stop 07/19/18 at 21:00; Status DC Clonidine HCl (Catapres) 0.1 mg PRN BID PRN PO HYPERTENSION, SEE COMMENTS; Start 07/18/18 at 23:00 Tramadol HCl (Ultram) 50 mg PRN Q6HRS PRN PO PAIN; Start 07/18/18 at 23:00 Acetaminophen (Tylenol) 500 mg PRN Q6HRS PRN PO PAIN / TEMP Last administered on 07/22/18at 12:54; Start 07/18/18 at 23:00 Aspirin (Children'S Aspirin) 81 mg DAILYWBKFT PO Last administered on 07/28/18at 07:29; Start 07/19/18 at 08:00 Capsaicin (Zostrix) 1 peyton PRN Q8HRS PRN TP Joint Pain; Start 07/18/18 at 23:00 Vitamin D (Vitamin D3) 1,000 unit DAILY PO Last administered on 07/28/18at 07:27 ; Start 07/19/18 at 09:00 Clotrimazole (Lotrimin) 1 peyton PRN BID PRN TP RASH; Start 07/18/18 at 23:00 Docusate Sodium (Colace) 100 mg PRN BID PRN PO CONSTIPATION; Start 07/18/18 at 23:00 Non-Formulary Medication (Famotidine ) 20 mg BID PO ; Start 07/19/18 at 09:00; Stop 07/19/18 at 09:00; Status DC Folic Acid (Folic Acid) 1 mg DAILY PO Last administered on 07/28/18 07:29; Start 07/19/18 at 09:00 Linaclotide (Linzess) 290 mcg DAILY07 PO Last administered on 07/28/18 05:51; Start 07/19/18 at 07:00 Lisinopril (Prinivil) 2.5 mg DAILY PO Last administered on 07/27/18 07:57; Start 07/19/18 at 09:00 Al Hydroxide/Mg Hydroxide (Mylanta Plus Xs) 30 ml PRN Q4HRS PRN PO DYSPEPSIA; Start 07/18/18 at 23:00 Metformin HCl (Glucophage) 500 mg BIDWMEALS PO Last administered on 07/28/18 17 :42; Start 07/19/18 at 08:00 Multivitamins/ Calcium (Thera-M Plus) 1 tab DAILY PO Last administered on 07:27; Start 07/19/18 at 09:00 Fish Oil (Fish Oil) 1,000 mg DAILY PO Last administered on 07/28/18 07:27; Start 07/19/18 at 09:00 Non-Formulary Medication (Propranolol Hcl ) 10 mg BID PO ; Start 07/19/18 at 09: 00; Stop 07/19/18 at 09:00; Status DC Thiamine HCl (Vitamin B-1) 100 mg DAILY PO Last administered on 07/28/18 07:27 ; Start 07/19/18 at 09:00 Magnesium Hydroxide (Milk Of Magnesia) 2,400 mg PRN QHS PRN PO CONSTIPATION; Start 07/18/18 at 23:00 Atorvastatin Calcium (Lipitor) 20 mg QHS PO Last administered on 07/28/18 20:05 ; Start 07/18/18 at 23:30 Carbidopa/Levodopa (Sinemet 25/100) 2 tab HS PO Last administered on 07/28/18 20:05; Start 07/18/18 at 23:30 Mirtazapine (Remeron) 7.5 mg HS PO Last administered on 07/28/18 20:04; Start 07/18/18 at 23:30 Buspirone HCl (Buspar) 5 mg TID PO Last administered on 07/19/18 08:05; Start 07/18/18 at 23:30; Stop 07/19/18 at 11:35; Status DC Buspirone HCl (Buspar) 15 mg TID PO Last administered on 07/19/18 08:06; Start 07/18/18 at 23:30; Stop 07/19/18 at 11:35; Status DC Duloxetine HCl (Cymbalta) 60 mg BID PO Last administered on 07/23/18 07:34; Start 07/18/18 at 23:30; Stop 07/23/18 at 16:47; Status DC Famotidine (Pepcid) 20 mg BID PO Last administered on 07/28/18 20:04; Start at 23:30 Lamotrigine (LaMICtal) 200 mg HS PO Last administered on 07/21/18 20:23; Start 07/18/18 at 23:30; Stop 07/22/18 at 07:07; Status DC Propranolol HCl (Inderal) 10 mg BID PO ; Start 07/18/18 at 23:30; Stop 07/18/18 at 23:54; Status DC Quetiapine Fumarate (SEROquel) 200 mg HS PO Last administered on 07/28/18 20:03 ; Start 07/18/18 at 23:30 Propranolol HCl (Inderal) 10 mg BID94 PO Last administered on 07/27/18 18:28; Start 07/19/18 at 09:00 Lorazepam (Ativan) 0.25 mg PRN Q4HRS PRN PO ANXIETY / AGITATION Last administered on 07/23/18 15:59; Start 07/19/18 at 10:45; Stop 07/23/18 at 16:47 ; Status DC Buspirone HCl (Buspar) 20 mg TID PO Last administered on 07/24/18 20:03; Start 07/19/18 at 14:00; Stop 07/25/18 at 08:53; Status DC Carbidopa/Levodopa (Sinemet 25/100) 1.5 tab TIDWMEALS PO Last administered on 17:42; Start 07/19/18 at 12:00 Lamotrigine (LaMICtal) 25 mg HS PO Last administered on 07/23/18 20:26; Start 07/21/18 at 21:00; Stop 07/23/18 at 23:00; Status DC Lamotrigine (LaMICtal) 50 mg HS PO Last administered on 07/28/18 20:04; Start 07/24/18 at 21:00; Stop 07/28/18 at 21:01; Status DC Lamotrigine (LaMICtal) 200 mg HS PO Last administered on 07/28/18 20:04; Start 07/22/18 at 21:00 Duloxetine HCl (Cymbalta) 60 mg DAILY PO Last administered on 07/28/18 07:28; Start 07/24/18 at 09:00 Lorazepam (Ativan) 0.5 mg PRN Q4HRS PRN PO ANXIETY / AGITATION Last administered on 07/28/18 17:42; Start 07/23/18 at 17:00 Buspirone HCl (Buspar) 20 mg TID PO Last administered on 07/28/18 20:04; Start 07/25/18 at 09:00 Lamotrigine (LaMICtal) 75 mg QHS PO ; Start 07/29/18 at 21:00; Stop 08/02/18 at 21 :01 Lamotrigine (LaMICtal) 100 mg QHS PO ; Start 08/03/18 at 21:00 Trazodone HCl (Desyrel) 100 mg HS PO Last administered on 07/28/18 20:06; Start 07/28/18 at 21:00 Active Scripts Active Reported Atorvastatin Calcium 20 Mg Tablet 20 Mg PO QHS B-1 (Thiamine HCl) 100 Mg Tablet 100 Mg PO DAILY [place] 3 1,000 Mg Softgel ([place]-3 Fatty Acids/Fish Oil) 1 Each Capsule 1 Cap PO DAILY Multivitamins With Minerals (Multivitamin With Minerals) 1 Each Tablet 1 Tab PO DAILY Linzess (Linaclotide) 290 Mcg Capsule 290 Mcg PO DAILY Hydroxyzine Hcl 50 Mg Tablet 50 Mg PO PRN Q8HRS PRN Folic Acid 1 Mg Tablet 1 Mg PO DAILY Docusate Sodium 100 Mg Capsule 100 Mg PO BID PRN Clotrimazole 15 Gm Cream..g. 1 Pey[place] TP BID PRN Clonidine Hcl 0.1 Mg Tablet 0.1 Mg PO BID PRN Give for SBP>160 Vitamin D (Cholecalciferol (Vitamin D3)) 1,000 Unit Capsule 1,000 Unit PO DAILY Capsaicin 60 Gm Cream..g. 1 Pey[place] TP PRN Q8HRS PRN Aspirin 81 Mg Tab.chew 81 Mg PO DAILY Acetaminophen 500 Mg Tablet 500 Mg PO PRN Q6HRS PRN Quetiapine Fumarate 25 Mg Tablet 12.5 Mg PO PRN Q8HRS PRN Maalox Advanced Suspension (Mag Hydrox/Aluminum Hyd/Simeth) 355 Ml Oral.susp 30 Ml PO PRN Q4HRS PRN Trazodone Hcl 100 Mg Tablet 100 Mg PO HS PRN Tramadol Hcl (Tramadol HCl) 50 Mg Tablet 50 Mg PO PRN Q6HRS PRN Propranolol Hcl 10 Mg Tablet 10 Mg PO BID Mirtazapine 7.5 Mg Tablet 7.5 Mg PO HS Metformin Hcl 500 Mg Tablet 500 Mg PO BIDWMEALS Lisinopril 2.5 Mg Tablet 2.5 Mg PO DAILY Lamotrigine 200 Mg Tablet 200 Mg PO HS Famotidine 20 Mg Tablet 20 Mg PO BID Carbidopa-Levodopa 25-100 Tab (Carbidopa/Levodopa) 1 Each Tablet 1.5 Tab PO TID Sinemet 25-100 Mg Tablet (Carbidopa/Levodopa) 1 Each Tablet 2 Tab PO HS Buspirone Hcl 5 Mg Tablet 5 Mg PO TID Buspirone Hcl 15 Mg Tablet 15 Mg PO TID Seroquel (Quetiapine Fumarate) 200 Mg Tablet 200 Mg PO HS Cymbalta (Duloxetine Hcl) 60 Mg Capsule. 60 Mg PO BID I have reviewed the current psychotropics carefully including drug interactions. Risk benefit ratio favors no change other than as noted in my dictated progress note. Diagnosis: Problems: (1) Anxiety disorder (2) Major depressive disorder, recurrent episode (3) Impulse control disorder (4) Bipolar affective, mixed LUTHER WARNER MD Jul 28, 2018 22:37
--- NOTE | 2018-07-29 01:10 | NUR ---
Patient was sitting in the day room watching at [employer] on tv. Calm, compliant with medications. Patient took shower and went to bed at 2044. Denies SI/HI when asked.
[2018-07-29] MEDS: LORazepam 0.5 MG TABLET PO PRN ×2 (05:28→11:52)
[2018-07-29] MEDS: LINACLOTIDE 145 MCG CAPSULE. PO SCH (05:28)
[2018-07-29 05:43] VITALS: BP 103/66
[2018-07-29] MEDS: busPIRone 10 MG TABLET. PO SCH ×3 (08:03→19:50)
[2018-07-29] MEDS: FAMOTIDINE 20 MG TABLET PO SCH ×2 (08:03→19:50)
[2018-07-29] MEDS: MULTIVITAMIN with MINERAL TABLET. PO SCH (08:05)
[2018-07-29] MEDS: PROPRANOLOL 10 MG TABLET. PO SCH ×2 (08:05→17:10)
[2018-07-29] MEDS: THIAMINE 100 MG TABLET. PO SCH (08:05)
[2018-07-29] MEDS: metFORMIN 500 MG TABLET PO SCH ×2 (08:05→17:14)
[2018-07-29] MEDS: LISINOPRIL 2.5 MG TABLET PO SCH (08:05)
[2018-07-29] MEDS: DULoxetine HCL 60 MG CAPSULE.DR PO SCH (08:06)
[2018-07-29] MEDS: OMEGA-3 FATTY ACIDS/FISH OIL 1,000 MG CAPSULE. PO SCH (08:06)
[2018-07-29] MEDS: FOLIC ACID 1 MG TABLET PO SCH (08:06)
[2018-07-29] MEDS: CHOLECALCIFEROL (VITAMIN D3) 1,000 UNIT TABLET PO SCH (08:06)
[2018-07-29] MEDS: CARBIDOPA/LEVODOPA 25/100MG TABLET PO SCH ×4 (08:06→19:50)
[2018-07-29] MEDS: ASPIRIN 81 MG TAB.CHEW PO SCH (08:11)
--- NOTE | 2018-07-29 14:00 | NUR ---
Patient states he feels SI thoughts " at times today", pt asked for music and to sit in the dayroom to decrease anxiety. Pt nt to dayroom , headphones provided and pt sitting calmly in dayroom.
[2018-07-29 16:03] VITALS: BP 118/75
--- NOTE | 2018-07-29 18:51 | NUR ---
Behavior Intervention Response and Plan: BIRP Note: Behavior: Assumed Care of patient, patient located in Dining Room at shift change. Patient exhibited the following behavior Attention Seeking, Medication Seeking, Compliant. Brief assessment on rounds of vital signs, medication needs, lab studies, and pain. Treatment plan problems . Intervention: Patient assessed and the following interventions initiated safety checks 15 Minute Checks Cognitive Assessment , Head to toe Assessment , Medications. Response: After interactions and interventions patient responded in the following manner, Somatic , Anxious, compliant. Continue to assess behaviors and condition will continue to monitor throughout the shift as needed. Patient educated on ADL's, and hand hygiene. 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 Continue to assess patient for changes in above assessment. Monitor for medication needs, pain, and safety concerns. Hourly rounding performed to ensure safe environment.
[2018-07-29] MEDS: traZODone 100 MG TABLET. PO SCH (19:50)
[2018-07-29] MEDS: ATORVASTATIN CALCIUM 20 MG TABLET PO SCH (19:50)
[2018-07-29] MEDS: MIRTAZAPINE 7.5 MG TABLET. PO SCH (19:50)
[2018-07-29] MEDS: lamoTRIgine 100 MG TABLET. PO SCH (19:50)
[2018-07-29] MEDS: QUEtiapine 100 MG TABLET. PO SCH (19:50)
[2018-07-29] MEDS: lamoTRIgine 25 MG TABLET. PO SCH (19:51)
--- NOTE | 2018-07-29 20:50 | PN ---
DATE: 07/28/2018 PSYCHIATRIC PROGRESS NOTE This late entry 07/28/2018 covers elements not covered in my initial note. SUBJECTIVE: I met with the patient in the evening. The patient slept 8-1/4 hours previous night. He remains somewhat anxious, withdrawn, repeatedly wanting his Ativan. REVIEW OF SYSTEMS: Ambulation impaired with walker. No CV, , pulmonary, eye system symptoms on review. MENTAL STATUS EXAM: Reasonably oriented. Speech is coherent, has some latency. Abstraction fair, computation impaired, language function intact. Mood and affect withdrawn, anxious, but improved. LABORATORY DATA: Reviewed. IMPRESSION: Unchanged from initial note. PLAN: No change from initial note. MAN Priya WARNER MD DR: ALMA DELIA/parmjit JOB#: [id number] / [id number]
--- NOTE | 2018-07-29 21:34 | PN ---
DATE: 07/27/2018 PSYCHIATRIC PROGRESS NOTE This late entry 07/27/2018 covers elements not covered in my initial note. SUBJECTIVE: I met with the patient in the evening. The patient slept 7-3/4 hours previous night. He remains anxious, constantly wanting his Ativan, likes it repeatedly. REVIEW OF SYSTEMS: No CV, , pulmonary, eye system symptoms on review. Gait unsteady. MENTAL STATUS EXAM: Oriented reasonably. Speech coherent, abstraction fair, computation impaired, language function intact, attention span short. Mood and affect somewhat depressed, withdrawn, anxious, but improved. LABORATORY DATA: Reviewed. IMPRESSION: Unchanged from initial note. PLAN: No change from initial note. LUTHER WARNER MD DR: ALMA DELIA/parmjit JOB#: [id number] / [id number]
--- NOTE | 2018-07-29 22:31 | PDOC ---
Exam Note: Kal Note: Please also refer to the separate dictated note~for this date of service dictated separately.~Patient seen individually. Discussed the patient with Nursing staff reviewed the chart.~Reviewed interim history and current functioning. Reviewed vital signs,~Labs/ Radiology~and current medications noted below. Continue current treatment with the changes noted in the dictated addendum note Assessment: Vital Signs: Vital Signs Date Time Temp Pulse Resp B/P (MAP) Pulse Ox O2 Delivery O2 Flow Rate FiO2 07/29/18 17:10 78 118/75 07/29/18 16:03 97.5 20 98 07/27/18 05:47 Room Air I&O Intake and Output 07/29/18 07:00 Intake Total 1320 ml Balance 1320 ml Intake Oral 1320 ml Labs: Laboratory Tests Test 07/29/18 07:14 Glucose (Fingerstick) 132 mg/dL (70-99) H Current Medications: Meds: Current Medications Mirtazapine (Remeron) 7.5 mg HS PO ; Start 07/19/18 at 21:00; Stop 07/19/18 at 21:00; Status DC Non-Formulary Medication (Buspirone Hcl ) 5 mg TID PO ; Start 07/19/18 at 09:00 ; Stop 07/19/18 at 09:00; Status DC Non-Formulary Medication (Buspirone Hcl ) 15 mg TID PO ; Start 07/19/18 at 09:00 ; Stop 07/19/18 at 09:00; Status DC Non-Formulary Medication (Duloxetine Hcl (Cymbalta)) 60 mg BID PO ; Start at 09:00; Stop 07/19/18 at 09:00; Status DC Hydroxyzine HCl (Atarax) 50 mg PRN Q8HRS PRN PO ANXIETY / AGITATION Last administered on 07/19/18at 09:26; Start 07/18/18 at 23:00 Non-Formulary Medication (Lamotrigine ) 200 mg HS PO ; Start 07/19/18 at 21:00; Stop 07/19/18 at 21:00; Status DC Quetiapine Fumarate (SEROquel) 12.5 mg PRN Q8HRS PRN PO ANXIETY / AGITATION; Start 07/18/18 at 23:00 Non-Formulary Medication (Quetiapine Fumarate (Seroquel)) 200 mg HS PO ; Start 07/19/18 at 21:00; Stop 07/19/18 at 21:00; Status DC Trazodone HCl (Desyrel) 100 mg PRN QHS PRN PO INSOMNIA Last administered on 07/27 19:19; Start 07/18/18 at 23:00; Stop 07/27/18 at 21:20; Status DC Atorvastatin Calcium (Lipitor) 20 mg QHS PO ; Start 07/19/18 at 21:00; Stop at 21:00; Status DC Carbidopa/Levodopa (Sinemet 25/100) 1.5 tab TID PO Last administered on at 08:05; Start 07/19/18 at 09:00; Stop 07/19/18 at 11:35; Status DC Carbidopa/Levodopa (Sinemet 25/100) 2 tab HS PO ; Start 07/19/18 at 21:00; Stop 07/19/18 at 21:00; Status DC Clonidine HCl (Catapres) 0.1 mg PRN BID PRN PO HYPERTENSION, SEE COMMENTS; Start 07/18/18 at 23:00 Tramadol HCl (Ultram) 50 mg PRN Q6HRS PRN PO PAIN; Start 07/18/18 at 23:00 Acetaminophen (Tylenol) 500 mg PRN Q6HRS PRN PO PAIN / TEMP Last administered on 07/22/18at 12:54; Start 07/18/18 at 23:00 Aspirin (Children'S Aspirin) 81 mg DAILYWBKFT PO Last administered on 07/29/18at 08:11; Start 07/19/18 at 08:00 Capsaicin (Zostrix) 1 peyton PRN Q8HRS PRN TP Joint Pain; Start 07/18/18 at 23:00 Vitamin D (Vitamin D3) 1,000 unit DAILY PO Last administered on 07/29/18at 08:06 ; Start 07/19/18 at 09:00 Clotrimazole (Lotrimin) 1 peyton PRN BID PRN TP RASH; Start 07/18/18 at 23:00 Docusate Sodium (Colace) 100 mg PRN BID PRN PO CONSTIPATION; Start 07/18/18 at 23:00 Non-Formulary Medication (Famotidine ) 20 mg BID PO ; Start 07/19/18 at 09:00; Stop 07/19/18 at 09:00; Status DC Folic Acid (Folic Acid) 1 mg DAILY PO Last administered on 07/29/18 08:06; Start 07/19/18 at 09:00 Linaclotide (Linzess) 290 mcg DAILY07 PO Last administered on 07/29/18 05:28; Start 07/19/18 at 07:00 Lisinopril (Prinivil) 2.5 mg DAILY PO Last administered on 07/29/18 08:05; Start 07/19/18 at 09:00 Al Hydroxide/Mg Hydroxide (Mylanta Plus Xs) 30 ml PRN Q4HRS PRN PO DYSPEPSIA; Start 07/18/18 at 23:00 Metformin HCl (Glucophage) 500 mg BIDWMEALS PO Last administered on 07/29/18 17 :14; Start 07/19/18 at 08:00 Multivitamins/ Calcium (Thera-M Plus) 1 tab DAILY PO Last administered on 08:05; Start 07/19/18 at 09:00 Fish Oil (Fish Oil) 1,000 mg DAILY PO Last administered on 07/29/18 08:06; Start 07/19/18 at 09:00 Non-Formulary Medication (Propranolol Hcl ) 10 mg BID PO ; Start 07/19/18 at 09: 00; Stop 07/19/18 at 09:00; Status DC Thiamine HCl (Vitamin B-1) 100 mg DAILY PO Last administered on 07/29/18 08:05 ; Start 07/19/18 at 09:00 Magnesium Hydroxide (Milk Of Magnesia) 2,400 mg PRN QHS PRN PO CONSTIPATION; Start 07/18/18 at 23:00 Atorvastatin Calcium (Lipitor) 20 mg QHS PO Last administered on 07/29/18 19:50 ; Start 07/18/18 at 23:30 Carbidopa/Levodopa (Sinemet 25/100) 2 tab HS PO Last administered on 07/29/18 19:50; Start 07/18/18 at 23:30 Mirtazapine (Remeron) 7.5 mg HS PO Last administered on 07/29/18 19:50; Start 07/18/18 at 23:30 Buspirone HCl (Buspar) 5 mg TID PO Last administered on 07/19/18 08:05; Start 07/18/18 at 23:30; Stop 07/19/18 at 11:35; Status DC Buspirone HCl (Buspar) 15 mg TID PO Last administered on 07/19/18 08:06; Start 07/18/18 at 23:30; Stop 07/19/18 at 11:35; Status DC Duloxetine HCl (Cymbalta) 60 mg BID PO Last administered on 07/23/18 07:34; Start 07/18/18 at 23:30; Stop 07/23/18 at 16:47; Status DC Famotidine (Pepcid) 20 mg BID PO Last administered on 07/29/18 19:50; Start at 23:30 Lamotrigine (LaMICtal) 200 mg HS PO Last administered on 07/21/18 20:23; Start 07/18/18 at 23:30; Stop 07/22/18 at 07:07; Status DC Propranolol HCl (Inderal) 10 mg BID PO ; Start 07/18/18 at 23:30; Stop 07/18/18 at 23:54; Status DC Quetiapine Fumarate (SEROquel) 200 mg HS PO Last administered on 07/29/18 19:50 ; Start 07/18/18 at 23:30 Propranolol HCl (Inderal) 10 mg BID94 PO Last administered on 07/29/18 17:10; Start 07/19/18 at 09:00 Lorazepam (Ativan) 0.25 mg PRN Q4HRS PRN PO ANXIETY / AGITATION Last administered on 07/23/18 15:59; Start 07/19/18 at 10:45; Stop 07/23/18 at 16:47 ; Status DC Buspirone HCl (Buspar) 20 mg TID PO Last administered on 07/24/18 20:03; Start 07/19/18 at 14:00; Stop 07/25/18 at 08:53; Status DC Carbidopa/Levodopa (Sinemet 25/100) 1.5 tab TIDWMEALS PO Last administered on 17:10; Start 07/19/18 at 12:00 Lamotrigine (LaMICtal) 25 mg HS PO Last administered on 07/23/18 20:26; Start 07/21/18 at 21:00; Stop 07/23/18 at 23:00; Status DC Lamotrigine (LaMICtal) 50 mg HS PO Last administered on 07/28/18 20:04; Start 07/24/18 at 21:00; Stop 07/28/18 at 21:01; Status DC Lamotrigine (LaMICtal) 200 mg HS PO Last administered on 07/29/18 19:50; Start 07/22/18 at 21:00 Duloxetine HCl (Cymbalta) 60 mg DAILY PO Last administered on 07/29/18 08:06; Start 07/24/18 at 09:00 Lorazepam (Ativan) 0.5 mg PRN Q4HRS PRN PO ANXIETY / AGITATION Last administered on 07/29/18 11:52; Start 07/23/18 at 17:00; Stop 07/29/18 at 19:10; Status DC Buspirone HCl (Buspar) 20 mg TID PO Last administered on 07/29/18 19:50; Start 07/25/18 at 09:00 Lamotrigine (LaMICtal) 75 mg QHS PO Last administered on 07/29/18 19:51; Start 07/29/18 at 21:00; Stop 08/02/18 at 21:01 Lamotrigine (LaMICtal) 100 mg QHS PO ; Start 08/03/18 at 21:00 Trazodone HCl (Desyrel) 100 mg HS PO Last administered on 07/29/18 19:50; Start 07/28/18 at 21:00 Clonazepam (KlonoPIN) 0.5 mg PRN TID PRN PO ANXIETY / AGITATION; Start 07/29/18 at 19:15 Active Scripts Active Reported Atorvastatin Calcium 20 Mg Tablet 20 Mg PO QHS B-1 (Thiamine HCl) 100 Mg Tablet 100 Mg PO DAILY Diamond 3 1,000 Mg Softgel (Diamond-3 Fatty Acids/Fish Oil) 1 Each Capsule 1 Cap PO DAILY Multivitamins With Minerals (Multivitamin With Minerals) 1 Each Tablet 1 Tab PO DAILY Linzess (Linaclotide) 290 Mcg Capsule 290 Mcg PO DAILY Hydroxyzine Hcl 50 Mg Tablet 50 Mg PO PRN Q8HRS PRN Folic Acid 1 Mg Tablet 1 Mg PO DAILY Docusate Sodium 100 Mg Capsule 100 Mg PO BID PRN Clotrimazole 15 Gm Cream..g. 1 Peyton TP BID PRN Clonidine Hcl 0.1 Mg Tablet 0.1 Mg PO BID PRN Give for SBP>160 Vitamin D (Cholecalciferol (Vitamin D3)) 1,000 Unit Capsule 1,000 Unit PO DAILY Capsaicin 60 Gm Cream..g. 1 Peyton TP PRN Q8HRS PRN Aspirin 81 Mg Tab.chew 81 Mg PO DAILY Acetaminophen 500 Mg Tablet 500 Mg PO PRN Q6HRS PRN Quetiapine Fumarate 25 Mg Tablet 12.5 Mg PO PRN Q8HRS PRN Maalox Advanced Suspension (Mag Hydrox/Aluminum Hyd/Simeth) 355 Ml Oral.susp 30 Ml PO PRN Q4HRS PRN Trazodone Hcl 100 Mg Tablet 100 Mg PO HS PRN Tramadol Hcl (Tramadol HCl) 50 Mg Tablet 50 Mg PO PRN Q6HRS PRN Propranolol Hcl 10 Mg Tablet 10 Mg PO BID Mirtazapine 7.5 Mg Tablet 7.5 Mg PO HS Metformin Hcl 500 Mg Tablet 500 Mg PO BIDWMEALS Lisinopril 2.5 Mg Tablet 2.5 Mg PO DAILY Lamotrigine 200 Mg Tablet 200 Mg PO HS Famotidine 20 Mg Tablet 20 Mg PO BID Carbidopa-Levodopa 25-100 Tab (Carbidopa/Levodopa) 1 Each Tablet 1.5 Tab PO TID Sinemet 25-100 Mg Tablet (Carbidopa/Levodopa) 1 Each Tablet 2 Tab PO HS Buspirone Hcl 5 Mg Tablet 5 Mg PO TID Buspirone Hcl 15 Mg Tablet 15 Mg PO TID Seroquel (Quetiapine Fumarate) 200 Mg Tablet 200 Mg PO HS Cymbalta (Duloxetine Hcl) 60 Mg Capsule. 60 Mg PO BID I have reviewed the current psychotropics carefully including drug interactions. Risk benefit ratio favors no change other than as noted in my dictated progress note. Diagnosis: Problems: (1) Anxiety disorder (2) Major depressive disorder, recurrent episode (3) Impulse control disorder (4) Bipolar affective, mixed LUTHER WARNER MD Jul 29, 2018 22:31
--- NOTE | 2018-07-29 23:19 | NUR ---
Pt sitting quietly in the day room at shift change. Pt calm, pleasant, and interactive with staff and peer. Pt cooperative with assessment and compliant with medications.
[2018-07-30 05:48] VITALS: BP 95/55
[2018-07-30] MEDS: LINACLOTIDE 145 MCG CAPSULE. PO SCH (05:48)
[2018-07-30] MEDS: clonazePAM 0.5 MG TABLET PO PRN ×3 (05:49→18:00)
--- NOTE | 2018-07-30 05:52 | NUR ---
PRN Klonopin administered as ordered for pt c/o feeling anxious this morning.
[2018-07-30] MEDS: OMEGA-3 FATTY ACIDS/FISH OIL 1,000 MG CAPSULE. PO SCH (08:19)
[2018-07-30] MEDS: MULTIVITAMIN with MINERAL TABLET. PO SCH (08:19)
[2018-07-30] MEDS: FAMOTIDINE 20 MG TABLET PO SCH ×2 (08:19→20:18)
[2018-07-30] MEDS: busPIRone 10 MG TABLET. PO SCH ×3 (08:19→20:18)
[2018-07-30] MEDS: ASPIRIN 81 MG TAB.CHEW PO SCH (08:19)
[2018-07-30] MEDS: FOLIC ACID 1 MG TABLET PO SCH (08:20)
[2018-07-30] MEDS: DULoxetine HCL 60 MG CAPSULE.DR PO SCH (08:20)
[2018-07-30] MEDS: CARBIDOPA/LEVODOPA 25/100MG TABLET PO SCH ×4 (08:20→20:18)
[2018-07-30] MEDS: metFORMIN 500 MG TABLET PO SCH ×2 (08:20→17:00)
[2018-07-30] MEDS: THIAMINE 100 MG TABLET. PO SCH (08:20)
[2018-07-30] MEDS: CHOLECALCIFEROL (VITAMIN D3) 1,000 UNIT TABLET PO SCH (08:20)
[2018-07-30] MEDS: PROPRANOLOL 10 MG TABLET. PO SCH (09:00)
[2018-07-30 10:45] VITALS: BP 103/65
[2018-07-30] MEDS: LISINOPRIL 2.5 MG TABLET PO SCH (10:54)
--- NOTE | 2018-07-30 15:23 | NUR ---
Pt has been calm, cooperative, and compliant. Pt speaks quietly, answers questions appropriately, and seems depressed; however, pt is very appreciative and thanks staff consistently. Pt denied any SI today, but stated that he had "a little" SI yesterday. Pt believes he has gotten better since his admission.
--- NOTE | 2018-07-30 15:30 | NUR ---
Insurance : Spoke with Alicia at [facility] at [phone] to verify that the process is to wait for a retro review once the patient is discharged. Alicia verified that is the process since he came in after hours and it would give them a complete medical record since the patient is SI and continues to be during his admission she stated it gives the whole picture. This RN informed Alicia that the patients is very concerned about payment and preauthorization. Alicia stated she will have the retro office technology professorBerny hurd contact me. Email sent to billing department stating above information. Addendum: 07/30/18 at 1534 by KAZ CHU RN Alicia [phone] petroleum products sales representative for [facility]
--- NOTE | 2018-07-30 15:48 | NUR ---
Behavior Intervention Response and Plan: BIRP Note: Behavior: Assumed Care of patient, patient located in Day Room at shift change. Patient exhibited the following behavior Calm, Cooperative, Compliant. Brief assessment on rounds of vital signs, medication needs, lab studies, and pain. Treatment plan problems: alteration in mood and fall risk. Intervention: Patient assessed and the following interventions initiated safety checks 15 Minute Checks Cognitive Assessment , Head to toe Assessment , Medications. Response: After interactions and interventions patient responded in the following manner, Calm , Interactive ,Appropriate. Continue to assess behaviors and condition will continue to monitor throughout the shift as needed. Patient educated on ADL's, and hand hygiene. 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 Continue to assess patient for changes in above assessment. Monitor for medication needs, pain, and safety concerns. Hourly rounding performed to ensure safe environment.
[2018-07-30 16:19] VITALS: BP 102/71
--- NOTE | 2018-07-30 18:20 | PN ---
DATE: 07/29/2018 PSYCHIATRIC PROGRESS NOTE This late entry 07/29/2018 covers elements not covered in my initial note. SUBJECTIVE: I met with the patient in the evening. The patient slept 8-1/4 hours previous night. He is constantly wanting his Ativan and still feels he is very anxious even though he takes it every time he can at the maximum dosage. I processed this at length with him. He states he has been on Klonopin in the past and seemed to do better for him with a longer duration of action. REVIEW OF SYSTEMS: Ambulation impaired with walker. No CV, , pulmonary, eye, ENT system symptoms on review. MENTAL STATUS EXAM: Oriented reasonably. Speech is coherent, has some latency. Abstraction fair, computation impaired, language function intact, attention span short. Mood and affect somewhat withdrawn. LABORATORY DATA: Reviewed. IMPRESSION: Unchanged from initial note. PLAN: Change Ativan to Klonopin 0.5 mg t.i.d. p.r.n. anxiety. Continue rest unchanged for now from initial note. LUTHER WARNER MD DR: ALMA DELIA/parmjit JOB#: [id number] / [id number]
[2018-07-30] MEDS: lamoTRIgine 100 MG TABLET. PO SCH (20:17)
[2018-07-30] MEDS: lamoTRIgine 25 MG TABLET. PO SCH (20:17)
[2018-07-30] MEDS: QUEtiapine 100 MG TABLET. PO SCH (20:18)
[2018-07-30] MEDS: traZODone 100 MG TABLET. PO SCH (20:18)
[2018-07-30] MEDS: MIRTAZAPINE 7.5 MG TABLET. PO SCH (20:18)
[2018-07-30] MEDS: ATORVASTATIN CALCIUM 20 MG TABLET PO SCH (20:20)
[2018-07-30] MEDS: hydrOXYzine HCL 25 MG TABLET PO PRN (20:20)
--- NOTE | 2018-07-30 22:04 | PDOC ---
Exam Note: Kal Note: Please also refer to the separate dictated note~for this date of service dictated separately.~Patient seen individually. Discussed the patient with Nursing staff reviewed the chart.~Reviewed interim history and current functioning. Reviewed vital signs,~Labs/ Radiology~and current medications noted below. Continue current treatment with the changes noted in the dictated addendum note Assessment: Vital Signs: Vital Signs Date Time Temp Pulse Resp B/P (MAP) Pulse Ox O2 Delivery O2 Flow Rate FiO2 07/30/18 16:19 97.7 89 18 102/71 (81) 95 Room Air I&O Intake and Output 07/30/18 06:59 Intake Total 1080 ml Balance 1080 ml Intake Oral 1080 ml Labs: Laboratory Tests Test 07/30/18 07:11 Glucose (Fingerstick) 119 mg/dL (70-99) H Current Medications: Meds: Current Medications Mirtazapine (Remeron) 7.5 mg HS PO ; Start 07/19/18 at 21:00; Stop 07/19/18 at 21:00; Status DC Non-Formulary Medication (Buspirone Hcl ) 5 mg TID PO ; Start 07/19/18 at 09:00 ; Stop 07/19/18 at 09:00; Status DC Non-Formulary Medication (Buspirone Hcl ) 15 mg TID PO ; Start 07/19/18 at 09:00 ; Stop 07/19/18 at 09:00; Status DC Non-Formulary Medication (Duloxetine Hcl (Cymbalta)) 60 mg BID PO ; Start at 09:00; Stop 07/19/18 at 09:00; Status DC Hydroxyzine HCl (Atarax) 50 mg PRN Q8HRS PRN PO ANXIETY / AGITATION Last administered on 07/30/18at 20:20; Start 07/18/18 at 23:00 Non-Formulary Medication (Lamotrigine ) 200 mg HS PO ; Start 07/19/18 at 21:00; Stop 07/19/18 at 21:00; Status DC Quetiapine Fumarate (SEROquel) 12.5 mg PRN Q8HRS PRN PO ANXIETY / AGITATION; Start 07/18/18 at 23:00 Non-Formulary Medication (Quetiapine Fumarate (Seroquel)) 200 mg HS PO ; Start 07/19/18 at 21:00; Stop 07/19/18 at 21:00; Status DC Trazodone HCl (Desyrel) 100 mg PRN QHS PRN PO INSOMNIA Last administered on 07/27 19:19; Start 07/18/18 at 23:00; Stop 07/27/18 at 21:20; Status DC Atorvastatin Calcium (Lipitor) 20 mg QHS PO ; Start 07/19/18 at 21:00; Stop at 21:00; Status DC Carbidopa/Levodopa (Sinemet 25/100) 1.5 tab TID PO Last administered on at 08:05; Start 07/19/18 at 09:00; Stop 07/19/18 at 11:35; Status DC Carbidopa/Levodopa (Sinemet 25/100) 2 tab HS PO ; Start 07/19/18 at 21:00; Stop 07/19/18 at 21:00; Status DC Clonidine HCl (Catapres) 0.1 mg PRN BID PRN PO HYPERTENSION, SEE COMMENTS; Start 07/18/18 at 23:00 Tramadol HCl (Ultram) 50 mg PRN Q6HRS PRN PO PAIN; Start 07/18/18 at 23:00 Acetaminophen (Tylenol) 500 mg PRN Q6HRS PRN PO PAIN / TEMP Last administered on 07/22/18at 12:54; Start 07/18/18 at 23:00 Aspirin (Children'S Aspirin) 81 mg DAILYWBKFT PO Last administered on 07/30/18at 08:19; Start 07/19/18 at 08:00 Capsaicin (Zostrix) 1 peyton PRN Q8HRS PRN TP Joint Pain; Start 07/18/18 at 23:00 Vitamin D (Vitamin D3) 1,000 unit DAILY PO Last administered on 07/30/18at 08:20 ; Start 07/19/18 at 09:00 Clotrimazole (Lotrimin) 1 peyton PRN BID PRN TP RASH; Start 07/18/18 at 23:00 Docusate Sodium (Colace) 100 mg PRN BID PRN PO CONSTIPATION; Start 07/18/18 at 23:00 Non-Formulary Medication (Famotidine ) 20 mg BID PO ; Start 07/19/18 at 09:00; Stop 07/19/18 at 09:00; Status DC Folic Acid (Folic Acid) 1 mg DAILY PO Last administered on 07/30/18 08:20; Start 07/19/18 at 09:00 Linaclotide (Linzess) 290 mcg DAILY07 PO Last administered on 07/30/18 05:48; Start 07/19/18 at 07:00 Lisinopril (Prinivil) 2.5 mg DAILY PO Last administered on 07/30/18 10:54; Start 07/19/18 at 09:00 Al Hydroxide/Mg Hydroxide (Mylanta Plus Xs) 30 ml PRN Q4HRS PRN PO DYSPEPSIA; Start 07/18/18 at 23:00 Metformin HCl (Glucophage) 500 mg BIDWMEALS PO Last administered on 07/30/18 17 :00; Start 07/19/18 at 08:00 Multivitamins/ Calcium (Thera-M Plus) 1 tab DAILY PO Last administered on 08:19; Start 07/19/18 at 09:00 Fish Oil (Fish Oil) 1,000 mg DAILY PO Last administered on 07/30/18 08:19; Start 07/19/18 at 09:00 Non-Formulary Medication (Propranolol Hcl ) 10 mg BID PO ; Start 07/19/18 at 09: 00; Stop 07/19/18 at 09:00; Status DC Thiamine HCl (Vitamin B-1) 100 mg DAILY PO Last administered on 07/30/18 08:20 ; Start 07/19/18 at 09:00 Magnesium Hydroxide (Milk Of Magnesia) 2,400 mg PRN QHS PRN PO CONSTIPATION; Start 07/18/18 at 23:00 Atorvastatin Calcium (Lipitor) 20 mg QHS PO Last administered on 07/30/18 20:20 ; Start 07/18/18 at 23:30 Carbidopa/Levodopa (Sinemet 25/100) 2 tab HS PO Last administered on 07/30/18 20:18; Start 07/18/18 at 23:30 Mirtazapine (Remeron) 7.5 mg HS PO Last administered on 07/30/18 20:18; Start 07/18/18 at 23:30 Buspirone HCl (Buspar) 5 mg TID PO Last administered on 07/19/18 08:05; Start 07/18/18 at 23:30; Stop 07/19/18 at 11:35; Status DC Buspirone HCl (Buspar) 15 mg TID PO Last administered on 07/19/18 08:06; Start 07/18/18 at 23:30; Stop 07/19/18 at 11:35; Status DC Duloxetine HCl (Cymbalta) 60 mg BID PO Last administered on 07/23/18 07:34; Start 07/18/18 at 23:30; Stop 07/23/18 at 16:47; Status DC Famotidine (Pepcid) 20 mg BID PO Last administered on 07/30/18 20:18; Start at 23:30 Lamotrigine (LaMICtal) 200 mg HS PO Last administered on 07/21/18 20:23; Start 07/18/18 at 23:30; Stop 07/22/18 at 07:07; Status DC Propranolol HCl (Inderal) 10 mg BID PO ; Start 07/18/18 at 23:30; Stop 07/18/18 at 23:54; Status DC Quetiapine Fumarate (SEROquel) 200 mg HS PO Last administered on 07/30/18 20:18 ; Start 07/18/18 at 23:30 Propranolol HCl (Inderal) 10 mg BID94 PO Last administered on 07/29/18 17:10; Start 07/19/18 at 09:00; Stop 07/30/18 at 16:51; Status DC Lorazepam (Ativan) 0.25 mg PRN Q4HRS PRN PO ANXIETY / AGITATION Last administered on 07/23/18 15:59; Start 07/19/18 at 10:45; Stop 07/23/18 at 16:47 ; Status DC Buspirone HCl (Buspar) 20 mg TID PO Last administered on 07/24/18 20:03; Start 07/19/18 at 14:00; Stop 07/25/18 at 08:53; Status DC Carbidopa/Levodopa (Sinemet 25/100) 1.5 tab TIDWMEALS PO Last administered on 17:00; Start 07/19/18 at 12:00 Lamotrigine (LaMICtal) 25 mg HS PO Last administered on 07/23/18 20:26; Start 07/21/18 at 21:00; Stop 07/23/18 at 23:00; Status DC Lamotrigine (LaMICtal) 50 mg HS PO Last administered on 07/28/18 20:04; Start 07/24/18 at 21:00; Stop 07/28/18 at 21:01; Status DC Lamotrigine (LaMICtal) 200 mg HS PO Last administered on 07/30/18 20:17; Start 07/22/18 at 21:00 Duloxetine HCl (Cymbalta) 60 mg DAILY PO Last administered on 07/30/18 08:20; Start 07/24/18 at 09:00 Lorazepam (Ativan) 0.5 mg PRN Q4HRS PRN PO ANXIETY / AGITATION Last administered on 07/29/18 11:52; Start 07/23/18 at 17:00; Stop 07/29/18 at 19:10; Status DC Buspirone HCl (Buspar) 20 mg TID PO Last administered on 07/30/18 20:18; Start 07/25/18 at 09:00 Lamotrigine (LaMICtal) 75 mg QHS PO Last administered on 07/30/18 20:17; Start 07/29/18 at 21:00; Stop 08/02/18 at 21:01 Lamotrigine (LaMICtal) 100 mg QHS PO ; Start 08/03/18 at 21:00 Trazodone HCl (Desyrel) 100 mg HS PO Last administered on 07/30/18 20:18; Start 07/28/18 at 21:00 Clonazepam (KlonoPIN) 0.5 mg PRN TID PRN PO ANXIETY / AGITATION Last administered on 07/30/18 18:00; Start 07/29/18 at 19:15 Propranolol HCl (Inderal) 10 mg DAILY PO ; Start 07/31/18 at 09:00; Stop 08/02/18 at 21:00 Active Scripts Active Reported Atorvastatin Calcium 20 Mg Tablet 20 Mg PO QHS B-1 (Thiamine HCl) 100 Mg Tablet 100 Mg PO DAILY [place] 3 1,000 Mg Softgel ([place]-3 Fatty Acids/Fish Oil) 1 Each Capsule 1 Cap PO DAILY Multivitamins With Minerals (Multivitamin With Minerals) 1 Each Tablet 1 Tab PO DAILY Linzess (Linaclotide) 290 Mcg Capsule 290 Mcg PO DAILY Hydroxyzine Hcl 50 Mg Tablet 50 Mg PO PRN Q8HRS PRN Folic Acid 1 Mg Tablet 1 Mg PO DAILY Docusate Sodium 100 Mg Capsule 100 Mg PO BID PRN Clotrimazole 15 Gm Cream..g. 1 Pey[place] TP BID PRN Clonidine Hcl 0.1 Mg Tablet 0.1 Mg PO BID PRN Give for SBP>160 Vitamin D (Cholecalciferol (Vitamin D3)) 1,000 Unit Capsule 1,000 Unit PO DAILY Capsaicin 60 Gm Cream..g. 1 Pey[place] TP PRN Q8HRS PRN Aspirin 81 Mg Tab.chew 81 Mg PO DAILY Acetaminophen 500 Mg Tablet 500 Mg PO PRN Q6HRS PRN Quetiapine Fumarate 25 Mg Tablet 12.5 Mg PO PRN Q8HRS PRN Maalox Advanced Suspension (Mag Hydrox/Aluminum Hyd/Simeth) 355 Ml Oral.susp 30 Ml PO PRN Q4HRS PRN Trazodone Hcl 100 Mg Tablet 100 Mg PO HS PRN Tramadol Hcl (Tramadol HCl) 50 Mg Tablet 50 Mg PO PRN Q6HRS PRN Propranolol Hcl 10 Mg Tablet 10 Mg PO BID Mirtazapine 7.5 Mg Tablet 7.5 Mg PO HS Metformin Hcl 500 Mg Tablet 500 Mg PO BIDWMEALS Lisinopril 2.5 Mg Tablet 2.5 Mg PO DAILY Lamotrigine 200 Mg Tablet 200 Mg PO HS Famotidine 20 Mg Tablet 20 Mg PO BID Carbidopa-Levodopa 25-100 Tab (Carbidopa/Levodopa) 1 Each Tablet 1.5 Tab PO TID Sinemet 25-100 Mg Tablet (Carbidopa/Levodopa) 1 Each Tablet 2 Tab PO HS Buspirone Hcl 5 Mg Tablet 5 Mg PO TID Buspirone Hcl 15 Mg Tablet 15 Mg PO TID Seroquel (Quetiapine Fumarate) 200 Mg Tablet 200 Mg PO HS Cymbalta (Duloxetine Hcl) 60 Mg Capsule.dr 60 Mg PO BID I have reviewed the current psychotropics carefully including drug interactions. Risk benefit ratio favors no change other than as noted in my dictated progress note. Diagnosis: Problems: (1) Anxiety disorder (2) Major depressive disorder, recurrent episode (3) Impulse control disorder (4) Bipolar affective, mixed LUTHER WARNER MD Jul 30, 2018 22:04
--- NOTE | 2018-07-30 23:02 | NUR ---
Behavior Intervention Response and Plan: BIRP Note: Behavior: Assumed Care of patient, patient located in Day Room at shift change. Patient exhibited the following behavior Interactive, Demanding, Compliant. Brief assessment on rounds of vital signs, medication needs, lab studies, and pain. Treatment plan problems . Intervention: Patient assessed and the following interventions initiated safety checks 15 Minute Checks Head to toe Assessment , Cognitive Assessment , Head to toe Assessment. Response: After interactions and interventions patient responded in the following manner, Compliant , Cooperative ,Anxious. Continue to assess behaviors and condition will continue to monitor throughout the shift as needed. Patient educated on ADL's, and hand hygiene. Plan: Continue to monitor Master Treatment Plan for patient's progress toward short term goals of Improved Mood, Decreased Agitation, manager terminal goals to return to previous living setting vs placement. Continue to assess patient for changes in above assessment. Monitor for medication needs, pain, and safety concerns. Hourly rounding performed to ensure safe environment.
[2018-07-31 05:42] VITALS: BP 121/74
[2018-07-31] MEDS: LINACLOTIDE 145 MCG CAPSULE. PO SCH (06:44)
[2018-07-31] MEDS: ASPIRIN 81 MG TAB.CHEW PO SCH (09:01)
[2018-07-31] MEDS: metFORMIN 500 MG TABLET PO SCH ×2 (09:02→17:14)
[2018-07-31] MEDS: THIAMINE 100 MG TABLET. PO SCH (09:02)
[2018-07-31] MEDS: DULoxetine HCL 60 MG CAPSULE.DR PO SCH (09:02)
[2018-07-31] MEDS: CARBIDOPA/LEVODOPA 25/100MG TABLET PO SCH ×4 (09:03→19:49)
[2018-07-31] MEDS: LISINOPRIL 2.5 MG TABLET PO SCH (09:04)
[2018-07-31] MEDS: FAMOTIDINE 20 MG TABLET PO SCH ×2 (09:04→19:49)
[2018-07-31] MEDS: CHOLECALCIFEROL (VITAMIN D3) 1,000 UNIT TABLET PO SCH (09:05)
[2018-07-31] MEDS: busPIRone 10 MG TABLET. PO SCH ×3 (09:05→19:48)
[2018-07-31] MEDS: FOLIC ACID 1 MG TABLET PO SCH (09:05)
[2018-07-31] MEDS: clonazePAM 0.5 MG TABLET PO PRN ×2 (09:05→14:48)
[2018-07-31] MEDS: OMEGA-3 FATTY ACIDS/FISH OIL 1,000 MG CAPSULE. PO SCH (09:06)
[2018-07-31] MEDS: MULTIVITAMIN with MINERAL TABLET. PO SCH (09:07)
[2018-07-31] MEDS: PROPRANOLOL 10 MG TABLET. PO SCH (09:07)
--- NOTE | 2018-07-31 10:30 | NUR ---
Nursing Note: Pt cooperative w/ cares, compliant w/ medications taken whole, participated in group. May CASTANON.
--- NOTE | 2018-07-31 14:25 | NUR ---
INSURANCE: Discussed with [facility] technical sales representative , Oscar at [phone] regarding patient wanting an update for authorization. This RN asked if [facility] would take patient information from date of arrival to date. Oscar stated to submit all information to his attn at fax [phone]. All information to include H&P, Psych consultation notes, nursing notes, and all labs faxed and confirmation received. VM left for Oscar at [facility] at [phone] to confirm received for processing.
--- NOTE | 2018-07-31 14:50 | NUR ---
Nursing Note: Pt reports feeling anxious. Encouraged him to use coping skills that he has learned such as deep breathing. PRN given. Will continue to monitor.
[2018-07-31 16:14] VITALS: BP 101/70
[2018-07-31] MEDS: QUEtiapine 100 MG TABLET. PO SCH (19:48)
[2018-07-31] MEDS: ATORVASTATIN CALCIUM 20 MG TABLET PO SCH (19:48)
[2018-07-31] MEDS: traZODone 100 MG TABLET. PO SCH (19:49)
[2018-07-31] MEDS: lamoTRIgine 100 MG TABLET. PO SCH (19:49)
[2018-07-31] MEDS: lamoTRIgine 25 MG TABLET. PO SCH (19:49)
[2018-07-31] MEDS: MIRTAZAPINE 7.5 MG TABLET. PO SCH (19:49)
--- NOTE | 2018-07-31 19:54 | PN ---
DATE: 07/30/2018 PSYCHIATRIC PROGRESS NOTE This late entry 07/30/2018 covers elements not covered in my initial note. SUBJECTIVE: I met with the patient in the evening. The patient slept 7-1/4 hours previous night. He denied any suicidal ideation on 07/30/2018 and the day before he had vague suicidal ideation. He states the Klonopin 0.5 mg t.i.d. p.r.n. is better than the Ativan for his anxiety. REVIEW OF SYSTEMS: Ambulation impaired with walker. No CV, , pulmonary, eye, ENT system symptoms on review. MENTAL STATUS EXAM: Oriented reasonably. Speech is coherent, has some latency. Abstraction fair, computation impaired, language function intact, attention span short. Mood and affect still somewhat dysphoric, anxious, but improved. LABORATORY DATA: Reviewed. IMPRESSION: Major depressive disorder; anxiety disorder, unspecified; bipolar 2 disorder, depressed. PLAN: Continue current psychotropics, but he is on Inderal 10 mg b.i.d. for anxiety disorder. He is on several other psychotropics that would address the anxiety, social anxiety symptoms, and we will taper and stop the Inderal to minimize the use of multiple medications given his Parkinson's. Further changes as clinically indicated. LUTHER WARNER MD DR: ALMA DELIA/parmjit JOB#: [id number] / [id number]
--- NOTE | 2018-07-31 22:18 | PDOC ---
Exam Note: Kal Note: Please also refer to the separate dictated note~for this date of service dictated separately.~Patient seen individually. Discussed the patient with Nursing staff reviewed the chart.~Reviewed interim history and current functioning. Reviewed vital signs,~Labs/ Radiology~and current medications noted below. Continue current treatment with the changes noted in the dictated addendum note Assessment: Vital Signs: Vital Signs Date Time Temp Pulse Resp B/P (MAP) Pulse Ox O2 Delivery O2 Flow Rate FiO2 07/31/18 16:14 98.3 85 16 101/70 (80) 98 07/30/18 16:19 Room Air I&O Intake and Output 07/31/18 06:59 Intake Total 1320 ml Balance 1320 ml Intake Oral 1320 ml Labs: Laboratory Tests Test 07/31/18 12:09 Glucose (Fingerstick) 107 mg/dL (70-99) H Current Medications: Meds: Current Medications Mirtazapine (Remeron) 7.5 mg HS PO ; Start 07/19/18 at 21:00; Stop 07/19/18 at 21:00; Status DC Non-Formulary Medication (Buspirone Hcl ) 5 mg TID PO ; Start 07/19/18 at 09:00 ; Stop 07/19/18 at 09:00; Status DC Non-Formulary Medication (Buspirone Hcl ) 15 mg TID PO ; Start 07/19/18 at 09:00 ; Stop 07/19/18 at 09:00; Status DC Non-Formulary Medication (Duloxetine Hcl (Cymbalta)) 60 mg BID PO ; Start at 09:00; Stop 07/19/18 at 09:00; Status DC Hydroxyzine HCl (Atarax) 50 mg PRN Q8HRS PRN PO ANXIETY / AGITATION Last administered on 07/30/18at 20:20; Start 07/18/18 at 23:00 Non-Formulary Medication (Lamotrigine ) 200 mg HS PO ; Start 07/19/18 at 21:00; Stop 07/19/18 at 21:00; Status DC Quetiapine Fumarate (SEROquel) 12.5 mg PRN Q8HRS PRN PO ANXIETY / AGITATION; Start 07/18/18 at 23:00 Non-Formulary Medication (Quetiapine Fumarate (Seroquel)) 200 mg HS PO ; Start 07/19/18 at 21:00; Stop 07/19/18 at 21:00; Status DC Trazodone HCl (Desyrel) 100 mg PRN QHS PRN PO INSOMNIA Last administered on 07/27at 19:19; Start 07/18/18 at 23:00; Stop 07/27/18 at 21:20; Status DC Atorvastatin Calcium (Lipitor) 20 mg QHS PO ; Start 07/19/18 at 21:00; Stop at 21:00; Status DC Carbidopa/Levodopa (Sinemet 25/100) 1.5 tab TID PO Last administered on at 08:05; Start 07/19/18 at 09:00; Stop 07/19/18 at 11:35; Status DC Carbidopa/Levodopa (Sinemet 25/100) 2 tab HS PO ; Start 07/19/18 at 21:00; Stop 07/19/18 at 21:00; Status DC Clonidine HCl (Catapres) 0.1 mg PRN BID PRN PO HYPERTENSION, SEE COMMENTS; Start 07/18/18 at 23:00 Tramadol HCl (Ultram) 50 mg PRN Q6HRS PRN PO PAIN; Start 07/18/18 at 23:00 Acetaminophen (Tylenol) 500 mg PRN Q6HRS PRN PO PAIN / TEMP Last administered on 07/22/18at 12:54; Start 07/18/18 at 23:00 Aspirin (Children'S Aspirin) 81 mg DAILYWBKFT PO Last administered on 07/31/18at 09:01; Start 07/19/18 at 08:00 Capsaicin (Zostrix) 1 pey[place] PRN Q8HRS PRN TP Joint Pain; Start 07/18/18 at 23:00 Vitamin D (Vitamin D3) 1,000 unit DAILY PO Last administered on 07/31/18at 09:05 ; Start 07/19/18 at 09:00 Clotrimazole (Lotrimin) 1 pey[place] PRN BID PRN TP RASH; Start 07/18/18 at 23:00 Docusate Sodium (Colace) 100 mg PRN BID PRN PO CONSTIPATION; Start 07/18/18 at 23:00 Non-Formulary Medication (Famotidine ) 20 mg BID PO ; Start 07/19/18 at 09:00; Stop 07/19/18 at 09:00; Status DC Folic Acid (Folic Acid) 1 mg DAILY PO Last administered on 07/31/18 09:05; Start 07/19/18 at 09:00 Linaclotide (Linzess) 290 mcg DAILY07 PO Last administered on 07/31/18 06:44; Start 07/19/18 at 07:00 Lisinopril (Prinivil) 2.5 mg DAILY PO Last administered on 07/31/18 09:04; Start 07/19/18 at 09:00 Al Hydroxide/Mg Hydroxide (Mylanta Plus Xs) 30 ml PRN Q4HRS PRN PO DYSPEPSIA; Start 07/18/18 at 23:00 Metformin HCl (Glucophage) 500 mg BIDWMEALS PO Last administered on 07/31/18 17 :14; Start 07/19/18 at 08:00 Multivitamins/ Calcium (Thera-M Plus) 1 tab DAILY PO Last administered on 09:07; Start 07/19/18 at 09:00 Fish Oil (Fish Oil) 1,000 mg DAILY PO Last administered on 07/31/18 09:06; Start 07/19/18 at 09:00 Non-Formulary Medication (Propranolol Hcl ) 10 mg BID PO ; Start 07/19/18 at 09: 00; Stop 07/19/18 at 09:00; Status DC Thiamine HCl (Vitamin B-1) 100 mg DAILY PO Last administered on 07/31/18 09:02 ; Start 07/19/18 at 09:00 Magnesium Hydroxide (Milk Of Magnesia) 2,400 mg PRN QHS PRN PO CONSTIPATION; Start 07/18/18 at 23:00 Atorvastatin Calcium (Lipitor) 20 mg QHS PO Last administered on 07/31/18 19:48 ; Start 07/18/18 at 23:30 Carbidopa/Levodopa (Sinemet 25/100) 2 tab HS PO Last administered on 07/31/18 19:49; Start 07/18/18 at 23:30 Mirtazapine (Remeron) 7.5 mg HS PO Last administered on 07/31/18 19:49; Start 07/18/18 at 23:30 Buspirone HCl (Buspar) 5 mg TID PO Last administered on 07/19/18 08:05; Start 07/18/18 at 23:30; Stop 07/19/18 at 11:35; Status DC Buspirone HCl (Buspar) 15 mg TID PO Last administered on 07/19/18 08:06; Start 07/18/18 at 23:30; Stop 07/19/18 at 11:35; Status DC Duloxetine HCl (Cymbalta) 60 mg BID PO Last administered on 07/23/18 07:34; Start 07/18/18 at 23:30; Stop 07/23/18 at 16:47; Status DC Famotidine (Pepcid) 20 mg BID PO Last administered on 07/31/18 19:49; Start at 23:30 Lamotrigine (LaMICtal) 200 mg HS PO Last administered on 07/21/18 20:23; Start 07/18/18 at 23:30; Stop 07/22/18 at 07:07; Status DC Propranolol HCl (Inderal) 10 mg BID PO ; Start 07/18/18 at 23:30; Stop 07/18/18 at 23:54; Status DC Quetiapine Fumarate (SEROquel) 200 mg HS PO Last administered on 07/31/18 19:48 ; Start 07/18/18 at 23:30 Propranolol HCl (Inderal) 10 mg BID94 PO Last administered on 07/29/18 17:10; Start 07/19/18 at 09:00; Stop 07/30/18 at 16:51; Status DC Lorazepam (Ativan) 0.25 mg PRN Q4HRS PRN PO ANXIETY / AGITATION Last administered on 07/23/18 15:59; Start 07/19/18 at 10:45; Stop 07/23/18 at 16:47 ; Status DC Buspirone HCl (Buspar) 20 mg TID PO Last administered on 07/24/18 20:03; Start 07/19/18 at 14:00; Stop 07/25/18 at 08:53; Status DC Carbidopa/Levodopa (Sinemet 25/100) 1.5 tab TIDWMEALS PO Last administered on 17:14; Start 07/19/18 at 12:00 Lamotrigine (LaMICtal) 25 mg HS PO Last administered on 07/23/18 20:26; Start 07/21/18 at 21:00; Stop 07/23/18 at 23:00; Status DC Lamotrigine (LaMICtal) 50 mg HS PO Last administered on 07/28/18 20:04; Start 07/24/18 at 21:00; Stop 07/28/18 at 21:01; Status DC Lamotrigine (LaMICtal) 200 mg HS PO Last administered on 07/31/18 19:49; Start 07/22/18 at 21:00 Duloxetine HCl (Cymbalta) 60 mg DAILY PO Last administered on 07/31/18 09:02; Start 07/24/18 at 09:00 Lorazepam (Ativan) 0.5 mg PRN Q4HRS PRN PO ANXIETY / AGITATION Last administered on 07/29/18 11:52; Start 07/23/18 at 17:00; Stop 07/29/18 at 19:10; Status DC Buspirone HCl (Buspar) 20 mg TID PO Last administered on 07/31/18 19:48; Start 07/25/18 at 09:00 Lamotrigine (LaMICtal) 75 mg QHS PO Last administered on 07/31/18 19:49; Start 07/29/18 at 21:00; Stop 08/02/18 at 21:01 Lamotrigine (LaMICtal) 100 mg QHS PO ; Start 08/03/18 at 21:00 Trazodone HCl (Desyrel) 100 mg HS PO Last administered on 07/31/18 19:49; Start 07/28/18 at 21:00 Clonazepam (KlonoPIN) 0.5 mg PRN TID PRN PO ANXIETY / AGITATION Last administered on 07/31/18 14:48; Start 07/29/18 at 19:15 Propranolol HCl (Inderal) 10 mg DAILY PO Last administered on 07/31/18 09:07; Start 07/31/18 at 09:00; Stop 08/02/18 at 21:00 Active Scripts Active Reported Atorvastatin Calcium 20 Mg Tablet 20 Mg PO QHS B-1 (Thiamine HCl) 100 Mg Tablet 100 Mg PO DAILY [place] 3 1,000 Mg Softgel ([place]-3 Fatty Acids/Fish Oil) 1 Each Capsule 1 Cap PO DAILY Multivitamins With Minerals (Multivitamin With Minerals) 1 Each Tablet 1 Tab PO DAILY Linzess (Linaclotide) 290 Mcg Capsule 290 Mcg PO DAILY Hydroxyzine Hcl 50 Mg Tablet 50 Mg PO PRN Q8HRS PRN Folic Acid 1 Mg Tablet 1 Mg PO DAILY Docusate Sodium 100 Mg Capsule 100 Mg PO BID PRN Clotrimazole 15 Gm Cream..g. 1 [place] TP BID PRN Clonidine Hcl 0.1 Mg Tablet 0.1 Mg PO BID PRN Give for SBP>160 Vitamin D (Cholecalciferol (Vitamin D3)) 1,000 Unit Capsule 1,000 Unit PO DAILY Capsaicin 60 Gm Cream..g. 1 [place] TP PRN Q8HRS PRN Aspirin 81 Mg Tab.chew 81 Mg PO DAILY Acetaminophen 500 Mg Tablet 500 Mg PO PRN Q6HRS PRN Quetiapine Fumarate 25 Mg Tablet 12.5 Mg PO PRN Q8HRS PRN Maalox Advanced Suspension (Mag Hydrox/Aluminum Hyd/Simeth) 355 Ml Oral.susp 30 Ml PO PRN Q4HRS PRN Trazodone Hcl 100 Mg Tablet 100 Mg PO HS PRN Tramadol Hcl (Tramadol HCl) 50 Mg Tablet 50 Mg PO PRN Q6HRS PRN Propranolol Hcl 10 Mg Tablet 10 Mg PO BID Mirtazapine 7.5 Mg Tablet 7.5 Mg PO HS Metformin Hcl 500 Mg Tablet 500 Mg PO BIDWMEALS Lisinopril 2.5 Mg Tablet 2.5 Mg PO DAILY Lamotrigine 200 Mg Tablet 200 Mg PO HS Famotidine 20 Mg Tablet 20 Mg PO BID Carbidopa-Levodopa 25-100 Tab (Carbidopa/Levodopa) 1 Each Tablet 1.5 Tab PO TID Sinemet 25-100 Mg Tablet (Carbidopa/Levodopa) 1 Each Tablet 2 Tab PO HS Buspirone Hcl 5 Mg Tablet 5 Mg PO TID Buspirone Hcl 15 Mg Tablet 15 Mg PO TID Seroquel (Quetiapine Fumarate) 200 Mg Tablet 200 Mg PO HS Cymbalta (Duloxetine Hcl) 60 Mg Capsule. 60 Mg PO BID I have reviewed the current psychotropics carefully including drug interactions. Risk benefit ratio favors no change other than as noted in my dictated progress note. Diagnosis: Problems: (1) Anxiety disorder (2) Major depressive disorder, recurrent episode (3) Impulse control disorder (4) Bipolar affective, mixed LUTHER WARNER MD Jul 31, 2018 22:18
--- NOTE | 2018-08-01 00:19 | NUR ---
Pt located in the dayroom this evening. Pt calm, compliant with medications and assessment. Denies SI.
[2018-08-01] MEDS: LINACLOTIDE 145 MCG CAPSULE. PO SCH (05:40)
[2018-08-01] MEDS: clonazePAM 0.5 MG TABLET PO PRN ×3 (05:45→18:13)
[2018-08-01 06:04] VITALS: BP 125/76
[2018-08-01] MEDS: ASPIRIN 81 MG TAB.CHEW PO SCH (07:58)
[2018-08-01] MEDS: CARBIDOPA/LEVODOPA 25/100MG TABLET PO SCH ×4 (07:58→19:50)
[2018-08-01] MEDS: OMEGA-3 FATTY ACIDS/FISH OIL 1,000 MG CAPSULE. PO SCH (07:58)
[2018-08-01] MEDS: DULoxetine HCL 60 MG CAPSULE.DR PO SCH (07:58)
[2018-08-01] MEDS: MULTIVITAMIN with MINERAL TABLET. PO SCH (07:59)
[2018-08-01] MEDS: THIAMINE 100 MG TABLET. PO SCH (07:59)
[2018-08-01] MEDS: busPIRone 10 MG TABLET. PO SCH ×3 (07:59→19:51)
[2018-08-01] MEDS: CHOLECALCIFEROL (VITAMIN D3) 1,000 UNIT TABLET PO SCH (07:59)
[2018-08-01] MEDS: FOLIC ACID 1 MG TABLET PO SCH (07:59)
[2018-08-01] MEDS: FAMOTIDINE 20 MG TABLET PO SCH ×2 (07:59→19:49)
[2018-08-01] MEDS: metFORMIN 500 MG TABLET PO SCH ×2 (07:59→16:35)
[2018-08-01] MEDS: PROPRANOLOL 10 MG TABLET. PO SCH (08:00)
[2018-08-01] MEDS: LISINOPRIL 2.5 MG TABLET PO SCH (08:00)
--- NOTE | 2018-08-01 09:23 | NUR ---
WEEKLY ACTIVITY THERAPY NOTE Date of Admission: 07/19/2018 Date of AT Assessment: 07/22/2018 Goal aimed: to increase knowledge of relaxation techniques and leisure awareness Initial goal: Pt. will participate in all groups he's invited to. Weekly progress towards goal: achieved Group participation level: Full Behaviors observed: Fully engaged, social with others, pleasant to have in groups. Plan: no change to goal
--- NOTE | 2018-08-01 10:00 | NUR ---
WEEKLY NOTE: Pt is eating and sleeping well. Pt is denying SI for the last 48 hours and does not have any behaviors on the unit. The psychiatrist will complete a Peer to Peer screen for pt stay. Pt may have to return to [facility] to await placement. ELOS pending.
--- NOTE | 2018-08-01 11:30 | NUR ---
SW contacted pt to discuss how pt is doing on the unit. Pt has been calling in and checking with him, but reports having a lot going on with moving and having to take care of the financial things outside of pt hospitalization. SW explained to pt that pt is doing well and attends as many groups as possible. Pt has not had any SI for the last 48 hours and the psychiatrist has been asked to complete a peer to peer review. Pt understands that pt may have to return to [place] although that is not what they want; but understands that may be their only option at this time. SW will continue to keep pt up to date.
--- NOTE | 2018-08-01 13:54 | NUR ---
Pt has been calm, cooperative, and appropriate throughout shift. Pt has been sitting in day room, participating in group sessions throughout shift. Pt was concerned about treatment team. Pt asked for his TID PRN Rob, and pt stated "I think Klonopin helps me with my anxiety more than Ativan."
--- NOTE | 2018-08-01 15:23 | NUR ---
Behavior Intervention Response and Plan: BIRP Note: Behavior: Assumed Care of patient, patient located in Day Room at shift change. Patient exhibited the following behavior Calm, Cooperative, Appropriate. Brief assessment on rounds of vital signs, medication needs, lab studies, and pain. Treatment plan problems:alteration in thought process and fall risk. Intervention: Patient assessed and the following interventions initiated safety checks 15 Minute Checks Cognitive Assessment , Head to toe Assessment , Medications. Response: After interactions and interventions patient responded in the following manner, Anxious , Cooperative ,Interactive. Continue to assess behaviors and condition will continue to monitor throughout the shift as needed. Patient educated on ADL's, and hand hygiene. Plan: Continue to monitor Master Treatment Plan for patient's progress toward short term goals of No harm To self/ others, Decreased Anxiety, prison goals to return to previous living setting vs placement. Continue to assess patient for changes in above assessment. Monitor for medication needs, pain, and safety concerns. Hourly rounding performed to ensure safe environment.
--- NOTE | 2018-08-01 15:28 | NUR ---
BRANDAN met with pt and called Korin to inform her that a peer to peer was completed today and the insurance physician has denied a continued stay at [facility]. Korin was not available as so SW and pt talked to the server security administrator, Maude and informed her of the insurance decision. Maude is not sure if Korin has been able to find an alternate placement. Maude will follow up with Korin and contact BRANDAN whenever possible. SW and pt attempted to contact pt and ended up leaving a message for pt that he will have to discharge tomorrow. SW will attempt to contact pt later with that decision.
--- NOTE | 2018-08-01 16:05 | NUR ---
BRANDAN received a call from Korin and Maude, along with the DON, who remained nameless, that pt just could not come back to the facility. They are not the right facility for pt and he really needs to be in a level II. BRANDAN informed them that she understands; however, at the moment, pt did not have any other option and would need to return to them. All parties reiterated that they would not take pt back. "I'm sorry but we just can't". BRANDAN contacted the [place] complaint line. BRANDAN informed the hotline that pt facility has chosen to not accept pt back. This was a "dumping" situation in which a 30-day notice had not been received. BRANDAN did inform the hotline that it was a rushed discharge decision as a peer to peer had to be completed and pt further stay was denied. The case number is [id number] and investigators will be asked to meet with administration at [facility].
[2018-08-01 16:24] VITALS: BP 95/62
--- NOTE | 2018-08-01 17:45 | NUR ---
Received call from Berny from [facility] per [facility]. Berny stated post peer review, Dr. Díaz is denying stay post 07/24/2018 for patient. This RN asked for appeal process to be faxed to Hospital due to the fact that patient has been stating SI with a plan in nursing notes post 07/24/2018. Fax received and placed in Dr. Bey's box in [facility]. SW and nursing staff made aware of situation for DC planning.
[2018-08-01] MEDS: ATORVASTATIN CALCIUM 20 MG TABLET PO SCH (19:49)
[2018-08-01] MEDS: QUEtiapine 100 MG TABLET. PO SCH (19:49)
[2018-08-01] MEDS: lamoTRIgine 100 MG TABLET. PO SCH (19:50)
[2018-08-01] MEDS: lamoTRIgine 25 MG TABLET. PO SCH (19:50)
[2018-08-01] MEDS: MIRTAZAPINE 7.5 MG TABLET. PO SCH (19:50)
[2018-08-01] MEDS: traZODone 100 MG TABLET. PO SCH (19:52)
--- NOTE | 2018-08-01 22:12 | PDOC ---
Exam Note: Kal Note: Please also refer to the separate dictated note~for this date of service dictated separately.~Patient seen individually. Discussed the patient with Nursing staff reviewed the chart.~Reviewed interim history and current functioning. Reviewed vital signs,~Labs/ Radiology~and current medications noted below. Continue current treatment with the changes noted in the dictated addendum note Assessment: Vital Signs: Vital Signs Date Time Temp Pulse Resp B/P (MAP) Pulse Ox O2 Delivery O2 Flow Rate FiO2 08/01/18 16:24 97.4 94 16 95/62 (73) 97 Room Air I&O Intake and Output 08/01/18 06:59 Intake Total 1200 ml Balance 1200 ml Intake Oral 1200 ml # Voids 1 # Bowel Movements 1 Labs: Laboratory Tests Test 08/01/18 07:21 Glucose (Fingerstick) 113 mg/dL (70-99) H Current Medications: Meds: Current Medications Mirtazapine (Remeron) 7.5 mg HS PO ; Start 07/19/18 at 21:00; Stop 07/19/18 at 21:00; Status DC Non-Formulary Medication (Buspirone Hcl ) 5 mg TID PO ; Start 07/19/18 at 09:00 ; Stop 07/19/18 at 09:00; Status DC Non-Formulary Medication (Buspirone Hcl ) 15 mg TID PO ; Start 07/19/18 at 09:00 ; Stop 07/19/18 at 09:00; Status DC Non-Formulary Medication (Duloxetine Hcl (Cymbalta)) 60 mg BID PO ; Start at 09:00; Stop 07/19/18 at 09:00; Status DC Hydroxyzine HCl (Atarax) 50 mg PRN Q8HRS PRN PO ANXIETY / AGITATION Last administered on 07/30/18at 20:20; Start 07/18/18 at 23:00 Non-Formulary Medication (Lamotrigine ) 200 mg HS PO ; Start 07/19/18 at 21:00; Stop 07/19/18 at 21:00; Status DC Quetiapine Fumarate (SEROquel) 12.5 mg PRN Q8HRS PRN PO ANXIETY / AGITATION; Start 07/18/18 at 23:00 Non-Formulary Medication (Quetiapine Fumarate (Seroquel)) 200 mg HS PO ; Start 07/19/18 at 21:00; Stop 07/19/18 at 21:00; Status DC Trazodone HCl (Desyrel) 100 mg PRN QHS PRN PO INSOMNIA Last administered on 07/27at 19:19; Start 07/18/18 at 23:00; Stop 07/27/18 at 21:20; Status DC Atorvastatin Calcium (Lipitor) 20 mg QHS PO ; Start 07/19/18 at 21:00; Stop at 21:00; Status DC Carbidopa/Levodopa (Sinemet 25/100) 1.5 tab TID PO Last administered on at 08:05; Start 07/19/18 at 09:00; Stop 07/19/18 at 11:35; Status DC Carbidopa/Levodopa (Sinemet 25/100) 2 tab HS PO ; Start 07/19/18 at 21:00; Stop 07/19/18 at 21:00; Status DC Clonidine HCl (Catapres) 0.1 mg PRN BID PRN PO HYPERTENSION, SEE COMMENTS; Start 07/18/18 at 23:00 Tramadol HCl (Ultram) 50 mg PRN Q6HRS PRN PO PAIN; Start 07/18/18 at 23:00 Acetaminophen (Tylenol) 500 mg PRN Q6HRS PRN PO PAIN / TEMP Last administered on 07/22/18at 12:54; Start 07/18/18 at 23:00 Aspirin (Children'S Aspirin) 81 mg DAILYWBKFT PO Last administered on 08/01/18at 07:58; Start 07/19/18 at 08:00 Capsaicin (Zostrix) 1 peyton PRN Q8HRS PRN TP Joint Pain; Start 07/18/18 at 23:00 Vitamin D (Vitamin D3) 1,000 unit DAILY PO Last administered on 08/01/18at 07:59 ; Start 07/19/18 at 09:00 Clotrimazole (Lotrimin) 1 peyton PRN BID PRN TP RASH; Start 07/18/18 at 23:00 Docusate Sodium (Colace) 100 mg PRN BID PRN PO CONSTIPATION; Start 07/18/18 at 23:00 Non-Formulary Medication (Famotidine ) 20 mg BID PO ; Start 07/19/18 at 09:00; Stop 07/19/18 at 09:00; Status DC Folic Acid (Folic Acid) 1 mg DAILY PO Last administered on 08/01/18 07:59; Start 07/19/18 at 09:00 Linaclotide (Linzess) 290 mcg DAILY07 PO Last administered on 08/01/18 05:40; Start 07/19/18 at 07:00 Lisinopril (Prinivil) 2.5 mg DAILY PO Last administered on 08/01/18 08:00; Start 07/19/18 at 09:00 Al Hydroxide/Mg Hydroxide (Mylanta Plus Xs) 30 ml PRN Q4HRS PRN PO DYSPEPSIA; Start 07/18/18 at 23:00 Metformin HCl (Glucophage) 500 mg BIDWMEALS PO Last administered on 08/01/18 16 :35; Start 07/19/18 at 08:00 Multivitamins/ Calcium (Thera-M Plus) 1 tab DAILY PO Last administered on 07:59; Start 07/19/18 at 09:00 Fish Oil (Fish Oil) 1,000 mg DAILY PO Last administered on 08/01/18 07:58; Start 07/19/18 at 09:00 Non-Formulary Medication (Propranolol Hcl ) 10 mg BID PO ; Start 07/19/18 at 09: 00; Stop 07/19/18 at 09:00; Status DC Thiamine HCl (Vitamin B-1) 100 mg DAILY PO Last administered on 08/01/18 07:59 ; Start 07/19/18 at 09:00 Magnesium Hydroxide (Milk Of Magnesia) 2,400 mg PRN QHS PRN PO CONSTIPATION; Start 07/18/18 at 23:00 Atorvastatin Calcium (Lipitor) 20 mg QHS PO Last administered on 08/01/18 19:49 ; Start 07/18/18 at 23:30 Carbidopa/Levodopa (Sinemet 25/100) 2 tab HS PO Last administered on 08/01/18 19:50; Start 07/18/18 at 23:30 Mirtazapine (Remeron) 7.5 mg HS PO Last administered on 08/01/18 19:50; Start 07/18/18 at 23:30 Buspirone HCl (Buspar) 5 mg TID PO Last administered on 07/19/18 08:05; Start 07/18/18 at 23:30; Stop 07/19/18 at 11:35; Status DC Buspirone HCl (Buspar) 15 mg TID PO Last administered on 07/19/18 08:06; Start 07/18/18 at 23:30; Stop 07/19/18 at 11:35; Status DC Duloxetine HCl (Cymbalta) 60 mg BID PO Last administered on 07/23/18 07:34; Start 07/18/18 at 23:30; Stop 07/23/18 at 16:47; Status DC Famotidine (Pepcid) 20 mg BID PO Last administered on 08/01/18 19:49; Start at 23:30 Lamotrigine (LaMICtal) 200 mg HS PO Last administered on 07/21/18 20:23; Start 07/18/18 at 23:30; Stop 07/22/18 at 07:07; Status DC Propranolol HCl (Inderal) 10 mg BID PO ; Start 07/18/18 at 23:30; Stop 07/18/18 at 23:54; Status DC Quetiapine Fumarate (SEROquel) 200 mg HS PO Last administered on 08/01/18 19:49 ; Start 07/18/18 at 23:30 Propranolol HCl (Inderal) 10 mg BID94 PO Last administered on 07/29/18 17:10; Start 07/19/18 at 09:00; Stop 07/30/18 at 16:51; Status DC Lorazepam (Ativan) 0.25 mg PRN Q4HRS PRN PO ANXIETY / AGITATION Last administered on 07/23/18 15:59; Start 07/19/18 at 10:45; Stop 07/23/18 at 16:47 ; Status DC Buspirone HCl (Buspar) 20 mg TID PO Last administered on 07/24/18 20:03; Start 07/19/18 at 14:00; Stop 07/25/18 at 08:53; Status DC Carbidopa/Levodopa (Sinemet 25/100) 1.5 tab TIDWMEALS PO Last administered on 16:35; Start 07/19/18 at 12:00 Lamotrigine (LaMICtal) 25 mg HS PO Last administered on 07/23/18 20:26; Start 07/21/18 at 21:00; Stop 07/23/18 at 23:00; Status DC Lamotrigine (LaMICtal) 50 mg HS PO Last administered on 07/28/18 20:04; Start 07/24/18 at 21:00; Stop 07/28/18 at 21:01; Status DC Lamotrigine (LaMICtal) 200 mg HS PO Last administered on 08/01/18 19:50; Start 07/22/18 at 21:00 Duloxetine HCl (Cymbalta) 60 mg DAILY PO Last administered on 08/01/18 07:58; Start 07/24/18 at 09:00 Lorazepam (Ativan) 0.5 mg PRN Q4HRS PRN PO ANXIETY / AGITATION Last administered on 07/29/18 11:52; Start 07/23/18 at 17:00; Stop 07/29/18 at 19:10; Status DC Buspirone HCl (Buspar) 20 mg TID PO Last administered on 08/01/18 19:51; Start 07/25/18 at 09:00 Lamotrigine (LaMICtal) 75 mg QHS PO Last administered on 08/01/18 19:50; Start 07/29/18 at 21:00; Stop 08/02/18 at 21:01 Lamotrigine (LaMICtal) 100 mg QHS PO ; Start 08/03/18 at 21:00 Trazodone HCl (Desyrel) 100 mg HS PO Last administered on 08/01/18 19:52; Start 07/28/18 at 21:00 Clonazepam (KlonoPIN) 0.5 mg PRN TID PRN PO ANXIETY / AGITATION Last administered on 08/01/18 18:13; Start 07/29/18 at 19:15 Propranolol HCl (Inderal) 10 mg DAILY PO Last administered on 08/01/18 08:00; Start 07/31/18 at 09:00; Stop 08/02/18 at 21:00 Active Scripts Active Reported Atorvastatin Calcium 20 Mg Tablet 20 Mg PO QHS B-1 (Thiamine HCl) 100 Mg Tablet 100 Mg PO DAILY [place] 3 1,000 Mg Softgel ([place]-3 Fatty Acids/Fish Oil) 1 Each Capsule 1 Cap PO DAILY Multivitamins With Minerals (Multivitamin With Minerals) 1 Each Tablet 1 Tab PO DAILY Linzess (Linaclotide) 290 Mcg Capsule 290 Mcg PO DAILY Hydroxyzine Hcl 50 Mg Tablet 50 Mg PO PRN Q8HRS PRN Folic Acid 1 Mg Tablet 1 Mg PO DAILY Docusate Sodium 100 Mg Capsule 100 Mg PO BID PRN Clotrimazole 15 Gm Cream..g. 1 Peyton TP BID PRN Clonidine Hcl 0.1 Mg Tablet 0.1 Mg PO BID PRN Give for SBP>160 Vitamin D (Cholecalciferol (Vitamin D3)) 1,000 Unit Capsule 1,000 Unit PO DAILY Capsaicin 60 Gm Cream..g. 1 Peyton TP PRN Q8HRS PRN Aspirin 81 Mg Tab.chew 81 Mg PO DAILY Acetaminophen 500 Mg Tablet 500 Mg PO PRN Q6HRS PRN Quetiapine Fumarate 25 Mg Tablet 12.5 Mg PO PRN Q8HRS PRN Maalox Advanced Suspension (Mag Hydrox/Aluminum Hyd/Simeth) 355 Ml Oral.susp 30 Ml PO PRN Q4HRS PRN Trazodone Hcl 100 Mg Tablet 100 Mg PO HS PRN Tramadol Hcl (Tramadol HCl) 50 Mg Tablet 50 Mg PO PRN Q6HRS PRN Propranolol Hcl 10 Mg Tablet 10 Mg PO BID Mirtazapine 7.5 Mg Tablet 7.5 Mg PO HS Metformin Hcl 500 Mg Tablet 500 Mg PO BIDWMEALS Lisinopril 2.5 Mg Tablet 2.5 Mg PO DAILY Lamotrigine 200 Mg Tablet 200 Mg PO HS Famotidine 20 Mg Tablet 20 Mg PO BID Carbidopa-Levodopa 25-100 Tab (Carbidopa/Levodopa) 1 Each Tablet 1.5 Tab PO TID Sinemet 25-100 Mg Tablet (Carbidopa/Levodopa) 1 Each Tablet 2 Tab PO HS Buspirone Hcl 5 Mg Tablet 5 Mg PO TID Buspirone Hcl 15 Mg Tablet 15 Mg PO TID Seroquel (Quetiapine Fumarate) 200 Mg Tablet 200 Mg PO HS Cymbalta (Duloxetine Hcl) 60 Mg Capsule.dr 60 Mg PO BID I have reviewed the current psychotropics carefully including drug interactions. Risk benefit ratio favors no change other than as noted in my dictated progress note. Diagnosis: Problems: (1) Anxiety disorder (2) Major depressive disorder, recurrent episode (3) Impulse control disorder (4) Bipolar affective, mixed LUTHER WARNER MD Aug 01, 2018 22:12
--- NOTE | 2018-08-02 00:13 | NUR ---
Pt out in dayroom all evening, watching movie and eating popcorn. Pt pleasant, compliant with medications. Denies SI.
[2018-08-02] MEDS ORDERED: CLON0.5T11 PO (01:46)
[2018-08-02] MEDS ORDERED: MAGN2400 PO (01:46)
[2018-08-02] MEDS ORDERED: LAMO25TA5 PO (01:50)
[2018-08-02] MEDS: LINACLOTIDE 145 MCG CAPSULE. PO SCH (06:02)
[2018-08-02] MEDS: clonazePAM 0.5 MG TABLET PO PRN ×2 (06:02→12:00)
[2018-08-02 06:39] VITALS: BP 108/73
[2018-08-02] MEDS: FAMOTIDINE 20 MG TABLET PO SCH (09:15)
[2018-08-02] MEDS: metFORMIN 500 MG TABLET PO SCH (09:16)
[2018-08-02] MEDS: FOLIC ACID 1 MG TABLET PO SCH (09:16)
[2018-08-02] MEDS: OMEGA-3 FATTY ACIDS/FISH OIL 1,000 MG CAPSULE. PO SCH (09:16)
[2018-08-02] MEDS: busPIRone 10 MG TABLET. PO SCH ×2 (09:16→12:01)
[2018-08-02] MEDS: CHOLECALCIFEROL (VITAMIN D3) 1,000 UNIT TABLET PO SCH (09:16)
[2018-08-02] MEDS: CARBIDOPA/LEVODOPA 25/100MG TABLET PO SCH ×2 (09:16→12:00)
[2018-08-02 09:17] VITALS: BP 108/73
[2018-08-02] MEDS: LISINOPRIL 2.5 MG TABLET PO SCH (09:17)
[2018-08-02] MEDS: MULTIVITAMIN with MINERAL TABLET. PO SCH (09:17)
[2018-08-02] MEDS: DULoxetine HCL 60 MG CAPSULE.DR PO SCH (09:17)
[2018-08-02] MEDS: PROPRANOLOL 10 MG TABLET. PO SCH (09:17)
[2018-08-02] MEDS: THIAMINE 100 MG TABLET. PO SCH (09:17)
[2018-08-02] MEDS: ASPIRIN 81 MG TAB.CHEW PO SCH (09:18)
--- NOTE | 2018-08-02 11:46 | NUR ---
SW met with pt. to assure him that his SW is working on proper placement and that she would speak to him as soon as she was able to give him information. Pt. inquired if his facility was not willing to taking him back, to which SW shared that she didn't not know the answer to that question. Pt. began sobbing, stating he couldn't stay here any longer because he didn't have any money to pay for his stay. BRANDAN worked through these anxieties with the pt. reassuring him that SW was working on it. Prior to walking pt. back to the day room, BRANDAN asked pt. if he was having any thoughts of harming himself, to which the pt. reported "No".
--- NOTE | 2018-08-02 12:03 | NUR ---
Patient requested anti-anxiety medication with his lunch meds. Given PRN clonazepam per request for anxiety as well as his scheduled 1400 buspar. Patient is scheduled to discharge today and states it is making him anxious. Denies SI/HI when asked at morning assessment.
--- NOTE | 2018-08-02 12:11 | NUR ---
Patient compliant with medications, asking med related questions about his Cymbalta dose. Nurse called Dr. Bey and received clarification for patient. Facility can increase Cymbalta dose to 90mg daily or 60mg BID if patients depressive symptoms worsen. He stated that the Lamictal should help with the depressive symptoms. Transcribed this information onto patients discharge packet. Patient denies SI/HI when asked specifically in morning assessment.
--- NOTE | 2018-08-02 13:40 | NUR ---
PLACEMENT UPDATE -- Referrals sent to the following: [facility] -- full [facility] -- 1 male [facility] -- 1 male [facility] -- full [facility] -- 1 male and 1 female [facility] -- full [facility] -- [facility] -- 3 [facility] and 3 female [facility] -- "we have tons of beds open" [facility] -- 1 male and 1 female
--- NOTE | 2018-08-02 13:50 | NUR ---
BRANDAN checked her messages and received one from Maude stating that they will take pt back and will have to contact SW back with a transportation time. "I don't know what we are going to do with him, but we'll work it out. Probably have to put him on a 1:1". BRANDAN met with pt to inform him that [facility] is going to take pt back, but no transport time as of now had been set up. BRANDAN also informed pt that the subcontract administrator, To, from [facility] called personally to talk to SW about pt referral. They will meet on pt today and make a decision as to whether or not he can return to their level II facility. Pt was okay with that answer; "I'm just happy to know I'm not going to get a bill from having to stay here after today". Once BRANDAN hears of a transport time, SW will let pt know. BRANDAN then received a call from pt who was very happy as well that pt is able to return to [facility] until a level II spot can be worked out. She reports that [facility] called her and discussed taking him back with a plan of action to ensure safety for pt. Pt said "Prayer works. So does the phone call you made yesterday to the State".
--- NOTE | 2018-08-02 14:15 | NUR ---
[facility] Social Work Discharge Planning Form Patient Name BILL SNOWDEN Admit Date: 07/18/18 DISCHARGE PLAN Discharge Destination: [facility] Care Assessment: Completed Prior to Admission Level II Assessment: Completed and approved prior to admission Transportation: [place] [facility] to pick pt up around 1430 Special Instructions/Notes: Please fax discharge med list and orders to [facility] at the fax number listed below. Referrals were sent to [facility], [place] [facility], [facility], and [facility]. I spoke with To at [facility], he is to decide today if Bill can return to their facility. DISCHARGE TO FACILITY Facility: [facility] Address: [address] [place] [id number] Contact Name: Maude, Nurse Informaticist: Contact Name: Please ask for the nurse in charge of pt care/unit: PCP: Dr. Rob Quinones
--- NOTE | 2018-08-02 15:13 | NUR ---
Patient discharged back to [facility]. Report called to ELIO López. Paperwork faxed and medication instructions reviewed with staff at facility. Patient has continued to deny SI/HI throughout the day when asked.
--- NOTE | 2018-08-02 15:15 | NUR ---
Transition Record was faxed to follow-up provider with the following elements: Reason for admission, procedures, tests, principal diagnosis, pending studies, patient instructions, 18/12 contact information for unit, phone number to obtain pending test results, plan for follow-up care, physician follow-up, advanced directive information, and medication list with dose, duration and instructions. This information was included in the following documents: History and physical, lab results, study results, progress notes, social work planning form, DC instruction form, patient visit summary, and medication reconciliation form. Date & time record faxed: 08/02/18 [id number] Record faxed to: [facility] Pool Record discussed with/ report given to: ELIO López
--- NOTE | 2018-08-02 17:51 | DS ---
DATE OF DISCHARGE: 08/02/2018 DISCHARGE SUMMARY/PSYCHIATRIC PROGRESS NOTE This note covers elements not covered in my initial note 08/02/2018. REASON FOR ADMISSION: Please refer to the admission history for details. Briefly, the patient is a 58-year-old male referred to us from [facility] by his primary care physician and psychiatrist on account of worsening symptoms of depression, suicidal ideation within the context of multiple suicide attempts in the past and past homicidal threats towards his and children. This is what prompted him to be transferred to a nursing facility and he has been on in two different facilities for some time. He has been doing well, but recently decompensating, prompting this referral. SIGNIFICANT FINDINGS AND CLINICAL COURSE: Following admission, the patient was seen daily individually by myself from a psychiatric standpoint, medical followup with Dr. Nugent. His history was consistent with bipolar 2 disorder and we gradually increased the Lamictal. Cymbalta was at 60 mg twice a day. We reduced it to 60 mg a day with the increase of Lamictal. This seemed to be stabilizing for him. He maintained BuSpar. Later Inderal for social anxiety was discontinued. He remained on Seroquel. Ativan was used for anxiety then changed to Klonopin and he did better on this. Prior to discharge, he denied suicidal ideation. REVIEW OF SYSTEMS: Ambulation impaired with walker. No CV, , pulmonary, eye system symptoms on review. MENTAL STATUS EXAM: Oriented reasonably. Speech is coherent, has some latency. Abstraction fair, computation impaired, language function intact, attention span short. Mood and affect is improved. No active suicidal ideation. LABORATORY DATA: Reviewed. IMPRESSION: Bipolar 2 disorder, depressed, in partial remission, major depressive disorder, in partial remission; anxiety disorder, unspecified. Rest as above. DISCHARGE MEDICATIONS: Please refer to the MRAD. DISCHARGE INSTRUCTIONS: Outpatient psychiatric and medical followup at the alf. Time for discharge day management greater than 30 minutes. LUTHER WARNER MD DR: ALMA DELIA/parmjit JOB#: [id number] / [id number]
--- NOTE | 2018-08-02 20:17 | PN ---
DATE: 07/31/2018 PSYCHIATRIC PROGRESS NOTE This late entry 07/31/2018 covers elements not covered in my initial note. SUBJECTIVE: I met with the patient in the evening at some length. The patient slept 7-1/2 hours. He is frequently asking for his Klonopin, but no more than 3 times a day, in fact slightly less. He is attending groups, smiling. Denies active suicidal ideation as I met with him. REVIEW OF SYSTEMS: Ambulation impaired. No CV, , pulmonary, eye system symptoms on review. MENTAL STATUS EXAM: Oriented to himself, situation. Abstraction fair, computation impaired, language function intact, attention span short. Mood and affect less depressed. LABORATORY DATA: Reviewed. IMPRESSION: Unchanged from initial note. PLAN: No change from initial note. We are gradually increasing the Lamictal. MAN Priya WARNER MD DR: ALMA DELIA/parmjit JOB#: [id number] / [id number]
--- NOTE | 2018-08-02 20:35 | PN ---
DATE: 08/01/2018 PSYCHIATRIC PROGRESS NOTE This late entry 08/01/2018 covers elements not covered in my initial note. SUBJECTIVE: I met with the patient in the evening and staffed at treatment team meeting earlier in the day. I also talked with Dr. Díaz physician reviewer for [id number] review from the insurance [email or web address] and discussed the patient's diagnosis, progress for ongoing authorization. The patient has denied suicidal ideation for about 24 hours and the plan is to try and transition him back to the nursing facility on 08/02/2018. The patient slept 7-1/4 hours. Appetite is 90%, somewhat quiet, withdrawn, depressed, but better. No active suicidal ideation. He is less fixated on the Klonopin. REVIEW OF SYSTEMS: Ambulation impaired with walker. No CV, , pulmonary, eye system symptoms on review. MENTAL STATUS EXAM: The patient is reasonably oriented. Speech is coherent, abstraction fair, computation impaired, language function intact, attention span short. Mood and affect somewhat withdrawn, but improved. LABORATORY DATA: Reviewed. IMPRESSION: Unchanged from initial note, bipolar 2 disorder, depressed; major depressive disorder, in partial remission. Rest unchanged. PLAN: No change from initial note. MAN Priya WARNER MD DR: ALMA DELIA/parmjit JOB#: [id number] / [id number]
--- NOTE | 2018-08-02 22:50 | PDOC ---
Exam Note: Kal Note: Please also refer to the separate dictated note~for this date of service dictated separately.~Patient seen individually. Discussed the patient with Nursing staff reviewed the chart.~Reviewed interim history and current functioning. Reviewed vital signs,~Labs/ Radiology~and current medications noted below. Continue current treatment with the changes noted in the dictated addendum note Assessment: Vital Signs: Vital Signs Date Time Temp Pulse Resp B/P (MAP) Pulse Ox O2 Delivery O2 Flow Rate FiO2 08/02/18 09:17 82 108/73 08/02/18 06:39 98.4 17 94 Room Air I&O Intake and Output 08/02/18 06:59 Intake Total 1440 ml Balance 1440 ml Intake Oral 1440 ml Labs: Laboratory Tests Test 08/02/18 07:12 Glucose (Fingerstick) 130 mg/dL (70-99) H Current Medications: Meds: Current Medications Mirtazapine (Remeron) 7.5 mg HS PO ; Start 07/19/18 at 21:00; Stop 07/19/18 at 21:00; Status DC Non-Formulary Medication (Buspirone Hcl ) 5 mg TID PO ; Start 07/19/18 at 09:00 ; Stop 07/19/18 at 09:00; Status DC Non-Formulary Medication (Buspirone Hcl ) 15 mg TID PO ; Start 07/19/18 at 09:00 ; Stop 07/19/18 at 09:00; Status DC Non-Formulary Medication (Duloxetine Hcl (Cymbalta)) 60 mg BID PO ; Start at 09:00; Stop 07/19/18 at 09:00; Status DC Hydroxyzine HCl (Atarax) 50 mg PRN Q8HRS PRN PO ANXIETY / AGITATION Last administered on 07/30/18at 20:20; Start 07/18/18 at 23:00; Stop 08/02/18 at 15:17; Status DC Non-Formulary Medication (Lamotrigine ) 200 mg HS PO ; Start 07/19/18 at 21:00; Stop 07/19/18 at 21:00; Status DC Quetiapine Fumarate (SEROquel) 12.5 mg PRN Q8HRS PRN PO ANXIETY / AGITATION; Start 07/18/18 at 23:00; Stop 08/02/18 at 15:17; Status DC Non-Formulary Medication (Quetiapine Fumarate (Seroquel)) 200 mg HS PO ; Start 07/19/18 at 21:00; Stop 07/19/18 at 21:00; Status DC Trazodone HCl (Desyrel) 100 mg PRN QHS PRN PO INSOMNIA Last administered on 07/27at 19:19; Start 07/18/18 at 23:00; Stop 07/27/18 at 21:20; Status DC Atorvastatin Calcium (Lipitor) 20 mg QHS PO ; Start 07/19/18 at 21:00; Stop at 21:00; Status DC Carbidopa/Levodopa (Sinemet 25/100) 1.5 tab TID PO Last administered on at 08:05; Start 07/19/18 at 09:00; Stop 07/19/18 at 11:35; Status DC Carbidopa/Levodopa (Sinemet 25/100) 2 tab HS PO ; Start 07/19/18 at 21:00; Stop 07/19/18 at 21:00; Status DC Clonidine HCl (Catapres) 0.1 mg PRN BID PRN PO HYPERTENSION, SEE COMMENTS; Start 07/18/18 at 23:00; Stop 08/02/18 at 15:17; Status DC Tramadol HCl (Ultram) 50 mg PRN Q6HRS PRN PO PAIN; Start 07/18/18 at 23:00; Stop 08/02/18 at 15:17; Status DC Acetaminophen (Tylenol) 500 mg PRN Q6HRS PRN PO PAIN / TEMP Last administered on 07/22/18at 12:54; Start 07/18/18 at 23:00; Stop 08/02/18 at 15:17; Status DC Aspirin (Children'S Aspirin) 81 mg DAILYWBKFT PO Last administered on 08/02/18at 09:18; Start 07/19/18 at 08:00; Stop 08/02/18 at 15:17; Status DC Capsaicin (Zostrix) 1 [place] PRN Q8HRS PRN TP Joint Pain; Start 07/18/18 at 23:00 ; Stop 08/02/18 at 15:17; Status DC Vitamin D (Vitamin D3) 1,000 unit DAILY PO Last administered on 08/02/18 09:16 ; Start 07/19/18 at 09:00; Stop 08/02/18 at 15:17; Status DC Clotrimazole (Lotrimin) 1 peyton PRN BID PRN TP RASH; Start 07/18/18 at 23:00; Stop 08/02/18 at 15:17; Status DC Docusate Sodium (Colace) 100 mg PRN BID PRN PO CONSTIPATION; Start 07/18/18 at 23:00; Stop 08/02/18 at 15:17; Status DC Non-Formulary Medication (Famotidine ) 20 mg BID PO ; Start 07/19/18 at 09:00; Stop 07/19/18 at 09:00; Status DC Folic Acid (Folic Acid) 1 mg DAILY PO Last administered on 08/02/18 09:16; Start 07/19/18 at 09:00; Stop 08/02/18 at 15:17; Status DC Linaclotide (Linzess) 290 mcg DAILY07 PO Last administered on 08/02/18 06:02; Start 07/19/18 at 07:00; Stop 08/02/18 at 15:17; Status DC Lisinopril (Prinivil) 2.5 mg DAILY PO Last administered on 08/02/18 09:17; Start 07/19/18 at 09:00; Stop 08/02/18 at 15:17; Status DC Al Hydroxide/Mg Hydroxide (Mylanta Plus Xs) 30 ml PRN Q4HRS PRN PO DYSPEPSIA; Start 07/18/18 at 23:00; Stop 08/02/18 at 15:17; Status DC Metformin HCl (Glucophage) 500 mg BIDWMEALS PO Last administered on 08/02/18 09 :16; Start 07/19/18 at 08:00; Stop 08/02/18 at 15:17; Status DC Multivitamins/ Calcium (Thera-M Plus) 1 tab DAILY PO Last administered on 09:17; Start 07/19/18 at 09:00; Stop 08/02/18 at 15:17; Status DC Fish Oil (Fish Oil) 1,000 mg DAILY PO Last administered on 08/02/18 09:16; Start 07/19/18 at 09:00; Stop 08/02/18 at 15:17; Status DC Non-Formulary Medication (Propranolol Hcl ) 10 mg BID PO ; Start 07/19/18 at 09: 00; Stop 07/19/18 at 09:00; Status DC Thiamine HCl (Vitamin B-1) 100 mg DAILY PO Last administered on 08/02/18 09:17 ; Start 07/19/18 at 09:00; Stop 08/02/18 at 15:17; Status DC Magnesium Hydroxide (Milk Of Magnesia) 2,400 mg PRN QHS PRN PO CONSTIPATION; Start 07/18/18 at 23:00; Stop 08/02/18 at 15:17; Status DC Atorvastatin Calcium (Lipitor) 20 mg QHS PO Last administered on 08/01/18 19:49 ; Start 07/18/18 at 23:30; Stop 08/02/18 at 15:17; Status DC Carbidopa/Levodopa (Sinemet 25/100) 2 tab HS PO Last administered on 08/01/18 19:50; Start 07/18/18 at 23:30; Stop 08/02/18 at 15:17; Status DC Mirtazapine (Remeron) 7.5 mg HS PO Last administered on 08/01/18 19:50; Start 07/18/18 at 23:30; Stop 08/02/18 at 15:17; Status DC Buspirone HCl (Buspar) 5 mg TID PO Last administered on 07/19/18at 08:05; Start 07/18/18 at 23:30; Stop 07/19/18 at 11:35; Status DC Buspirone HCl (Buspar) 15 mg TID PO Last administered on 07/19/18at 08:06; Start 07/18/18 at 23:30; Stop 07/19/18 at 11:35; Status DC Duloxetine HCl (Cymbalta) 60 mg BID PO Last administered on 07/23/18at 07:34; Start 07/18/18 at 23:30; Stop 07/23/18 at 16:47; Status DC Famotidine (Pepcid) 20 mg BID PO Last administered on 08/02/18 09:15; Start at 23:30; Stop 08/02/18 at 15:17; Status DC Lamotrigine (LaMICtal) 200 mg HS PO Last administered on 07/21/18at 20:23; Start 07/18/18 at 23:30; Stop 07/22/18 at 07:07; Status DC Propranolol HCl (Inderal) 10 mg BID PO ; Start 07/18/18 at 23:30; Stop 07/18/18 at 23:54; Status DC Quetiapine Fumarate (SEROquel) 200 mg HS PO Last administered on 08/01/18 19:49 ; Start 07/18/18 at 23:30; Stop 08/02/18 at 15:17; Status DC Propranolol HCl (Inderal) 10 mg BID94 PO Last administered on 07/29/18 17:10; Start 07/19/18 at 09:00; Stop 07/30/18 at 16:51; Status DC Lorazepam (Ativan) 0.25 mg PRN Q4HRS PRN PO ANXIETY / AGITATION Last administered on 07/23/18at 15:59; Start 07/19/18 at 10:45; Stop 07/23/18 at 16:47 ; Status DC Buspirone HCl (Buspar) 20 mg TID PO Last administered on 07/24/18 20:03; Start 07/19/18 at 14:00; Stop 07/25/18 at 08:53; Status DC Carbidopa/Levodopa (Sinemet 25/100) 1.5 tab TIDWMEALS PO Last administered on at 12:00; Start 07/19/18 at 12:00; Stop 08/02/18 at 15:17; Status DC Lamotrigine (LaMICtal) 25 mg HS PO Last administered on 07/23/18at 20:26; Start 07/21/18 at 21:00; Stop 07/23/18 at 23:00; Status DC Lamotrigine (LaMICtal) 50 mg HS PO Last administered on 07/28/18 20:04; Start 07/24/18 at 21:00; Stop 07/28/18 at 21:01; Status DC Lamotrigine (LaMICtal) 200 mg HS PO Last administered on 08/01/18 19:50; Start 07/22/18 at 21:00; Stop 08/02/18 at 15:17; Status DC Duloxetine HCl (Cymbalta) 60 mg DAILY PO Last administered on 08/02/18 09:17; Start 07/24/18 at 09:00; Stop 08/02/18 at 15:17; Status DC Lorazepam (Ativan) 0.5 mg PRN Q4HRS PRN PO ANXIETY / AGITATION Last administered on 07/29/18at 11:52; Start 07/23/18 at 17:00; Stop 07/29/18 at 19:10; Status DC Buspirone HCl (Buspar) 20 mg TID PO Last administered on 08/02/18at 12:01; Start 07/25/18 at 09:00; Stop 08/02/18 at 15:17; Status DC Lamotrigine (LaMICtal) 75 mg QHS PO Last administered on 08/01/18at 19:50; Start 07/29/18 at 21:00; Stop 08/02/18 at 15:17; Status DC Lamotrigine (LaMICtal) 100 mg QHS PO ; Start 08/03/18 at 21:00; Stop 08/03/18 at 21:00; Status DC Trazodone HCl (Desyrel) 100 mg HS PO Last administered on 08/01/18at 19:52; Start 07/28/18 at 21:00; Stop 08/02/18 at 15:17; Status DC Clonazepam (KlonoPIN) 0.5 mg PRN TID PRN PO ANXIETY / AGITATION Last administered on 08/02/18 12:00; Start 07/29/18 at 19:15; Stop 08/02/18 at 15:18; Status DC Propranolol HCl (Inderal) 10 mg DAILY PO Last administered on 08/02/18 09:17; Start 07/31/18 at 09:00; Stop 08/02/18 at 15:18; Status DC Active Scripts Active Reported Lamictal (Lamotrigine) 25 Mg Tablet 75 Mg PO QHS increase to total HS dose to 300mg on 08/03/18 2100 Clonazepam 0.5 Mg Tablet 0.5 Mg PO PRN TID PRN Milk Of Magnesia (Magnesium Hydroxide) 2,400 Mg/10 Ml Oral.susp 2,400 Mg PO PRN QHS PRN Atorvastatin Calcium 20 Mg Tablet 20 Mg PO QHS B-1 (Thiamine HCl) 100 Mg Tablet 100 Mg PO DAILY [place] 3 1,000 Mg Softgel ([place]-3 Fatty Acids/Fish Oil) 1 Each Capsule 1 Cap PO DAILY Multivitamins With Minerals (Multivitamin With Minerals) 1 Each Tablet 1 Tab PO DAILY Linzess (Linaclotide) 290 Mcg Capsule 290 Mcg PO DAILY Hydroxyzine Hcl 50 Mg Tablet 50 Mg PO PRN Q8HRS PRN Folic Acid 1 Mg Tablet 1 Mg PO DAILY Docusate Sodium 100 Mg Capsule 100 Mg PO BID PRN Clotrimazole 15 Gm Cream..g. 1 Peyton TP BID PRN Clonidine Hcl 0.1 Mg Tablet 0.1 Mg PO BID PRN Give for SBP>160 Vitamin D (Cholecalciferol (Vitamin D3)) 1,000 Unit Capsule 1,000 Unit PO DAILY Capsaicin 60 Gm Cream..g. 1 Peyton TP PRN Q8HRS PRN Aspirin 81 Mg Tab.chew 81 Mg PO DAILY Acetaminophen 500 Mg Tablet 500 Mg PO PRN Q6HRS PRN Quetiapine Fumarate 25 Mg Tablet 12.5 Mg PO PRN Q8HRS PRN Maalox Advanced Suspension (Mag Hydrox/Aluminum Hyd/Simeth) 355 Ml Oral.susp 30 Ml PO PRN Q4HRS PRN Trazodone Hcl 100 Mg Tablet 100 Mg PO HS Tramadol Hcl (Tramadol HCl) 50 Mg Tablet 50 Mg PO PRN Q6HRS PRN Propranolol Hcl 10 Mg Tablet 10 Mg PO DAILY Mirtazapine 7.5 Mg Tablet 7.5 Mg PO HS Metformin Hcl 500 Mg Tablet 500 Mg PO BIDWMEALS Lisinopril 2.5 Mg Tablet 2.5 Mg PO DAILY Lamotrigine 200 Mg Tablet 200 Mg PO HS increase to total HS dose to 300mg on 08/03/182099 Famotidine 20 Mg Tablet 20 Mg PO BID Carbidopa-Levodopa 25-100 Tab (Carbidopa/Levodopa) 1 Each Tablet 1.5 Tab PO TIDWMEALS Sinemet 25-100 Mg Tablet (Carbidopa/Levodopa) 1 Each Tablet 2 Tab PO HS Buspirone Hcl 15 Mg Tablet 20 Mg PO TID Seroquel (Quetiapine Fumarate) 200 Mg Tablet 200 Mg PO HS Cymbalta (Duloxetine Hcl) 60 Mg Capsule.dr 60 Mg PO DAILY I have reviewed the current psychotropics carefully including drug interactions. Risk benefit ratio favors no change other than as noted in my dictated progress note. Diagnosis: Problems: (1) Anxiety disorder (2) Major depressive disorder, recurrent episode (3) Impulse control disorder (4) Bipolar affective, mixed LUTHER WARNER MD Aug 02, 2018 22:50
[2018-08-03] MEDS ORDERED: lamoTRIgine 100 MG TABLET. PO SCH (21:00)
== END 2018-08-02 15:17 | DRG 885 ==
LOC: GEROPSY 22:27
PROVIDERS: ADMIT Psychiatry & Neurology Psychiatry; ATTEND Psychiatry & Neurology Psychiatry
DX: F31.60 Bipolar disorder, current episode mixed, unspecified (principal); R45.851 Suicidal ideations; G20 Parkinson's disease; F41.9 Anxiety disorder, unspecified; F63.9 Impulse disorder, unspecified; E11.9 Type 2 diabetes mellitus without complications; E78.5 Hyperlipidemia, unspecified; F40.10 Social phobia, unspecified; G47.30 Sleep apnea, unspecified; G89.29 Other chronic pain; I10 Essential (primary) hypertension; K59.09 Other constipation; K21.9 Gastro-esophageal reflux disease without esophagitis; Z66 Do not resuscitate; G47.33 Obstructive sleep apnea (adult) (pediatric); Z82.0 Family history of epilepsy and other diseases of the nervous system; Z82.5 Family history of asthma and other chronic lower respiratory diseases; Z83.3 Family history of diabetes mellitus; Z87.891 Personal history of nicotine dependence; Z91.5 Personal history of self-harm; Z88.8 Allergy status to other drugs, medicaments and biological substances; Z79.899 Other long term (current) drug therapy
CPT/HCPCS: 36415; 80053; 80061; 80076; 82306; 82947; 83036; 83540; 83550; 83735; 84436; 84443; 84480; 85025; 86592

== ENCOUNTER 2021-03-07 20:13 | Inpatient (IN) | payer BC, MEDICARE, OTHER ==
[~2021-03-07] VITALS: Ht 182.9 cm; Wt 93.5 kg
[~2021-03-07 20:13] MED LIST: ACET500T68 PO; ASPI-630 PO; ATOR20TA58 PO; ATOR40TA59 PO; BUSP15TA PO; BUSP5TAB PO; CAPS60CR2 TP; CARB-186 PO; CARB1TAB22 PO; CHOL100013 PO; CLON0.1T PO; CLON0.5T4 PO; CLOT15CR23 TP; DOCU100C28 PO; DULO60CA7 PO; FAMO20TA5 PO; FOLI1TAB16 PO; HYDR50TA PO; LAMO200T6 PO; LAMO25TA5 PO; LINA290C PO; LISI2.5T12 PO; MAG355OR11 PO; MAGN24003 PO; METF500T16 PO; MIRT7.5T8 PO; MULT-114 PO; OMEG-33 PO; PROP10TA PO; QUET200T4 PO; QUET25TA3 PO; THIA100T43 PO; TRAM50TA PO; TRAZ-125 PO
[2021-03-07] MEDS ORDERED: QUEtiapine 25 MG TABLET. PO PRN (20:30)
[2021-03-07] MEDS ORDERED: ONDA4TAB7 PO (20:35)
[2021-03-07] MEDS ORDERED: ACET325T21 PO (20:35)
[2021-03-07] MEDS ORDERED: CLON0.5T4 PO (20:35)
[2021-03-07] MEDS ORDERED: ESCITALOPRAM OX10 MG PO (20:35)
[2021-03-07] MEDS ORDERED: POLY2500 PO (20:35)
[2021-03-07] MEDS ORDERED: SENN8.6T11 PO (20:35)
[2021-03-07] MEDS ORDERED: MAGNESIUM HYDROXIDE 2,400 MG/30 ML ORAL.SUSP. PO PRN (21:00)
[2021-03-07] MEDS ORDERED: ONDANSETRON ODT 4 MG TAB.RAPDIS PO PRN (21:00)
[2021-03-07] MEDS ORDERED: MAG HYDROX/AL HYDROX/SIMETH 30 ML ORAL.SUSP PO PRN (21:00)
[2021-03-07] MEDS ORDERED: POLYETHYLENE GLYCOL 3350 17 GM PACKET. PO PRN (21:00)
[2021-03-07] MEDS: busPIRone 10 MG TABLET. PO SCH (21:05)
[2021-03-07] MEDS: CARBIDOPA/LEVODOPA 25/100MG TABLET PO SCH (21:05)
[2021-03-07] MEDS: FAMOTIDINE 20 MG TABLET PO SCH (21:05)
[2021-03-07] MEDS: QUEtiapine 100 MG TABLET. PO SCH (21:05)
[2021-03-07] MEDS: ATORVASTATIN CALCIUM 20 MG TABLET PO SCH (21:05)
[2021-03-07] MEDS: SENNOSIDES 8.6 MG TABLET PO SCH (21:05)
[2021-03-07] MEDS: clonazePAM 0.5 MG TABLET PO SCH (21:05)
[2021-03-07] MEDS: lamoTRIgine 100 MG TABLET. PO SCH (21:05)
[2021-03-07 22:29] VITALS: BP 130/83
[2021-03-08 05:33] LABS: BILIRUBIN,URINE NEG (NEG); CLARITY,URINE CLEAR; COLOR,URINE YELLOW; GLUCOSE,URINE NEG (NEG); NITRITE,URINE NEG (NEG); UROBILINOGEN,URINE 0.2 mg/dL (0.2 mg/dL)
[2021-03-08 05:34] LABS: BACTERIA,URINE 0 /HPF (0-FEW); RBC,URINE 0 /HPF (0-2); SQUAMOUS EPITHELIAL CELL,UR OCC /LPF
[2021-03-08 06:10] LABS: BASO % 1 % (0-3); EOS # 0.1 x10^3/uL (0.0-0.7); EOS % 2 % (0-3); HEMATOCRIT 44.3 % (39.0-53.0); LYMPH # 2.2 x10^3/uL (1.0-4.8); LYMPH % 31 % (24-48); MEAN CORPUSCULAR HEMOGLOBIN 31 pg (25-35); MEAN CORPUSCULAR HGB CONC 34 g/dL (31-37); MEAN CORPUSCULAR VOLUME 92 fL (79-100); MONO # 0.5 x10^3/uL (0.0-1.1); MONO % 7 % (0-9); NEUT # 4.2 x10^3uL (1.8-7.7); NEUT % 60 % (31-73); PLATELET COUNT 202 x10^3/uL (140-400); RED BLOOD COUNT 4.81 x10^6/uL (4.30-5.70); RED CELL DISTRIBUTION WIDTH 13.5 % (11.5-14.5)
[2021-03-08 06:27] LABS: ALBUMIN 3.6 g/dL (3.4-5.0); ALBUMIN/GLOBULIN RATIO 1.2 (1.0-1.7); CREATININE 0.7 mg/dL (0.7-1.3); MAGNESIUM 2.2 mg/dL (1.8-2.4); POTASSIUM 3.8 mmol/L (3.5-5.1); TOTAL BILIRUBIN 0.4 mg/dL (0.2-1.0); TOTAL PROTEIN 6.7 g/dL (6.4-8.2)
[2021-03-08 06:35] VITALS: BP 113/75
[2021-03-08] MEDS: CHOLECALCIFEROL (VITAMIN D3) 1,000 UNIT TABLET PO SCH (08:16)
[2021-03-08] MEDS: busPIRone 10 MG TABLET. PO SCH ×3 (08:16→21:02)
[2021-03-08] MEDS: FAMOTIDINE 20 MG TABLET PO SCH ×2 (08:16→21:02)
[2021-03-08] MEDS: lamoTRIgine 100 MG TABLET. PO SCH ×2 (08:16→21:02)
[2021-03-08] MEDS: CARBIDOPA/LEVODOPA 25/100MG TABLET PO SCH ×5 (08:17→21:02)
[2021-03-08] MEDS: LISINOPRIL 2.5 MG TABLET PO SCH (08:17)
[2021-03-08] MEDS: CITALOPRAM 20 MG TABLET. PO SCH (08:17)
[2021-03-08] MEDS: LUBIPROSTONE 24 MCG CAPSULE PO SCH ×2 (08:18→17:27)
[2021-03-08] MEDS: metFORMIN XR 500 MG TAB.ER.24H PO SCH (08:18)
[2021-03-08] MEDS: SENNOSIDES 8.6 MG TABLET PO SCH ×2 (08:18→21:02)
[2021-03-08] MEDS: ASPIRIN CHEWABLE 81 MG TABLET. PO SCH (08:18)
[2021-03-08] MEDS: FOLIC ACID 1 MG TABLET PO SCH (08:18)
[2021-03-08] MEDS: clonazePAM 0.5 MG TABLET PO SCH ×2 (08:24→21:02)
[2021-03-08] MEDS: ACETAMINOPHEN 325 MG TABLET PO PRN (08:57)
[2021-03-08] MEDS: QUEtiapine 25 MG TABLET. PO SCH ×2 (12:16→17:27)
[2021-03-08 15:41] LABS: THYROID STIM HORMONE (TSH) 2.118 uIU/mL (0.358-3.740)
[2021-03-08 16:20] VITALS: BP 100/68
--- NOTE | 2021-03-08 18:07 | EKG ---
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
[2021-03-08] MEDS: QUEtiapine 100 MG TABLET. PO SCH (21:02)
[2021-03-08] MEDS: ATORVASTATIN CALCIUM 20 MG TABLET PO SCH (21:02)
[2021-03-08 21:13] LABS: THYROXINE 4.1 ug/dL (4.5-12.0)
--- NOTE | 2021-03-08 21:58 | PDOC ---
Exam Note: Kal Note: Please also refer to the separate dictated note~for this date of service dictated separately.~Patient seen individually. Discussed the patient with Nursing staff reviewed the chart.~Reviewed interim history and current functioning. Reviewed vital signs,~Labs/ Radiology~and current medications noted below. Continue current treatment with the changes noted in the dictated addendum note Assessment: Vital Signs/I&O: Vital Signs Date Time Temp Pulse Resp B/P (MAP) Pulse Ox O2 Delivery O2 Flow Rate FiO2 03/08/21 16:20 97.3 94 20 100/68 (79) 97 03/07/21 22:29 Room Air I & O 03/07/21 03/07/21 03/08/21 15:00 23:00 07:00 Intake Total 120 ml Balance 120 ml Labs: Laboratory Tests Test 03/08/21 05:20 03/08/21 06:00 03/08/21 07:35 Urine Collection Type Unknown Urine Color Yellow Urine Clarity Clear Urine pH 6.0 Urine Specific [place] 1.020 Urine Protein Neg (NEG-TRACE) Urine Glucose (UA) Neg mg/dL (NEG) Urine Ketones (Stick) Neg mg/dL (NEG) Urine Blood Neg (NEG) Urine Nitrite Neg (NEG) Urine Bilirubin Neg (NEG) Urine Urobilinogen Dipstick 0.2 mg/dL (0.2 mg/dL) Urine Leukocyte Esterase Neg (NEG) Urine RBC 0 /HPF (0-2) Urine WBC 5-10 /HPF (0-4) Urine Squamous Epithelial Cells Occ /LPF Urine Bacteria 0 /HPF (0-FEW) White Blood Count 7.0 x10^3/uL (4.0-11.0) Red Blood Count 4.81 x10^6/uL (4.30-5.70) Hemoglobin 15.0 g/dL (13.0-17.5) Hematocrit 44.3 % (39.0-53.0) Mean Corpuscular Volume 92 fL (79-100) Mean Corpuscular Hemoglobin 31 pg (25-35) Mean Corpuscular Hemoglobin Concent 34 g/dL (31-37) Red Cell Distribution Width 13.5 % (11.5-14.5) Platelet Count 202 x10^3/uL (140-400) Neutrophils (%) (Auto) 60 % (31-73) Lymphocytes (%) (Auto) 31 % (24-48) Monocytes (%) (Auto) 7 % (0-9) Eosinophils (%) (Auto) 2 % (0-3) Basophils (%) (Auto) 1 % (0-3) Neutrophils # (Auto) 4.2 x10^3uL (1.8-7.7) Lymphocytes # (Auto) 2.2 x10^3/uL (1.0-4.8) Monocytes # (Auto) 0.5 x10^3/uL (0.0-1.1) Eosinophils # (Auto) 0.1 x10^3/uL (0.0-0.7) Basophils # (Auto) 0.0 x10^3/uL (0.0-0.2) D-Dimer (Marilee) < 0.19 mg/L (0.00-0.50) Sodium Level 143 mmol/L (136-145) Potassium Level 3.8 mmol/L (3.5-5.1) Chloride Level 104 mmol/L (98-107) Carbon Dioxide Level 28 mmol/L (21-32) Anion Gap 11 (6-14) Blood Urea Nitrogen 12 mg/dL (8-26) Creatinine 0.7 mg/dL (0.7-1.3) Estimated GFR (Cockcroft-Gault) 115.0 BUN/Creatinine Ratio 17 (6-20) Glucose Level 111 mg/dL (70-99) H Calcium Level 9.0 mg/dL (8.5-10.1) Magnesium Level 2.2 mg/dL (1.8-2.4) Iron Level 91 ug/dL (65-175) Total Iron Binding Capacity 302 ug/dL (250-450) Iron Saturation 30 % (15-34) Total Bilirubin 0.4 mg/dL (0.2-1.0) Aspartate Amino Transferase (AST) 8 U/L (15-37) L Alanine Aminotransferase (ALT) 18 U/L (16-63) Alkaline Phosphatase 96 U/L (46-116) Total Protein 6.7 g/dL (6.4-8.2) Albumin 3.6 g/dL (3.4-5.0) Albumin/Globulin Ratio 1.2 (1.0-1.7) Triglycerides Level 99 mg/dL (0-150) Cholesterol Level 91 mg/dL (0-200) LDL Cholesterol, Calculated 29 mg/dL (0-100) VLDL Cholesterol, Calculated 19 mg/dL (0-40) Non-HDL Cholesterol Calculated 48 mg/dL (0-129) HDL Cholesterol 43 mg/dL (40-60) Cholesterol/HDL Ratio 2.0 Vitamin B12 Level 514 pg/mL (247-911) 25-Hydroxy Vitamin D Total 42.2 ng/mL (30-100) Thyroid Stimulating Hormone (TSH) 2.118 uIU/mL (0.358-3.740) Thyroxine (T4) 4.1 ug/dL (4.5-12.0) L Total Triiodothyronine (TT3) 89 ng/dL (71-180) Treponema pallidum Antibody Nonreactive (Nonreactive) Glucose (Fingerstick) 113 mg/dL (70-99) H Current Medications: Meds: Laboratory Tests Test 03/08/21 05:20 03/08/21 06:00 03/08/21 07:35 Urine Collection Type Unknown Urine Color Yellow Urine Clarity Clear Urine pH 6.0 Urine Specific [place] 1.020 Urine Protein Neg Urine Glucose (UA) Neg mg/dL Urine Ketones (Stick) Neg mg/dL Urine Blood Neg Urine Nitrite Neg Urine Bilirubin Neg Urine Urobilinogen Dipstick 0.2 mg/dL Urine Leukocyte Esterase Neg Urine RBC 0 /HPF Urine WBC 5-10 /HPF Urine Squamous Epithelial Cells Occ /LPF Urine Bacteria 0 /HPF White Blood Count 7.0 x10^3/uL Red Blood Count 4.81 x10^6/uL Hemoglobin 15.0 g/dL Hematocrit 44.3 % Mean Corpuscular Volume 92 fL Mean Corpuscular Hemoglobin 31 pg Mean Corpuscular Hemoglobin Concent 34 g/dL Red Cell Distribution Width 13.5 % Platelet Count 202 x10^3/uL Neutrophils (%) (Auto) 60 % Lymphocytes (%) (Auto) 31 % Monocytes (%) (Auto) 7 % Eosinophils (%) (Auto) 2 % Basophils (%) (Auto) 1 % Neutrophils # (Auto) 4.2 x10^3uL Lymphocytes # (Auto) 2.2 x10^3/uL Monocytes # (Auto) 0.5 x10^3/uL Eosinophils # (Auto) 0.1 x10^3/uL Basophils # (Auto) 0.0 x10^3/uL D-Dimer (Marilee) < 0.19 mg/L Sodium Level 143 mmol/L Potassium Level 3.8 mmol/L Chloride Level 104 mmol/L Carbon Dioxide Level 28 mmol/L Anion Gap 11 Blood Urea Nitrogen 12 mg/dL Creatinine 0.7 mg/dL Estimated GFR (Cockcroft-Gault) 115.0 BUN/Creatinine Ratio 17 Glucose Level 111 mg/dL Calcium Level 9.0 mg/dL Magnesium Level 2.2 mg/dL Iron Level 91 ug/dL Total Iron Binding Capacity 302 ug/dL Iron Saturation 30 % Total Bilirubin 0.4 mg/dL Aspartate Amino Transf (AST/SGOT) 8 U/L Alanine Aminotransferase (ALT/SGPT) 18 U/L Alkaline Phosphatase 96 U/L Total Protein 6.7 g/dL Albumin 3.6 g/dL Albumin/Globulin Ratio 1.2 Triglycerides Level 99 mg/dL Cholesterol Level 91 mg/dL LDL Cholesterol, Calculated 29 mg/dL VLDL Cholesterol, Calculated 19 mg/dL Non-HDL Cholesterol Calculated 48 mg/dL HDL Cholesterol 43 mg/dL Cholesterol/HDL Ratio 2.0 Vitamin B12 Level 514 pg/mL 25-Hydroxy Vitamin D Total 42.2 ng/mL Thyroid Stimulating Hormone (TSH) 2.118 uIU/mL Thyroxine (T4) 4.1 ug/dL Total Triiodothyronine 89 ng/dL Treponema pallidum Antibody Nonreactive Glucose (Fingerstick) 113 mg/dL Current Medications Medications (Trade) Dose Ordered Sig/Kaley Route PRN Reason Start Time Stop Time Status Last Admin Dose Admin Acetaminophen (Tylenol) 650 mg PRN Q6HRS PRN PO MILD PAIN / TEMP > 100.3'F 03/07/21 20:30 03/08/21 08:57 Aspirin (Aspirin Chewable) 81 mg DAILY PO 03/08/21 09:00 03/08/21 08:18 Atorvastatin Calcium (Lipitor) 20 mg QHS PO 03/07/21 21:00 03/08/21 21:02 Buspirone HCl (Buspar) 20 mg TID PO 03/07/21 21:00 03/08/21 21:02 Carbidopa/Levodopa (Sinemet 25/100) 1 tab qid@08,10,13,16 PO 03/08/21 08:00 03/08/21 17:27 Carbidopa/Levodopa (Sinemet 25/100) 1 tab HS PO 03/07/21 21:00 03/08/21 21:02 Clonazepam (KlonoPIN) 0.5 mg BID PO 03/07/21 21:00 03/08/21 21:02 Famotidine (Pepcid) 20 mg BID PO 03/07/21 21:00 03/08/21 21:02 Folic Acid (Folic Acid) 1 mg DAILY PO 03/08/21 09:00 03/08/21 08:18 Lisinopril (Prinivil) 2.5 mg DAILY PO 03/08/21 09:00 03/08/21 08:17 Metformin HCl (Glucophage Xr) 1,000 mg DAILYWBKFT PO 03/08/21 08:00 03/08/21 08:18 Quetiapine Fumarate (SEROquel) 75 mg PRN BFRMEAL PRN PO ANXIETY / AGITATION 03/07/21 20:30 03/08/21 11:18 DC Sennosides (Senna) 8.6 mg BID PO 03/07/21 21:00 03/08/21 21:02 Vitamin D (Vitamin D3) 1,000 unit DAILY PO 03/08/21 09:00 03/08/21 08:16 Citalopram Hydrobromide (CeleXA) 20 mg DAILY PO 03/08/21 09:00 03/08/21 08:17 Lamotrigine (LaMICtal) 200 mg BID PO 03/07/21 21:00 03/08/21 21:02 Lubiprostone (Amitiza) 24 mcg BIDWMEALS PO 03/08/21 08:00 03/08/21 17:27 Al Hydroxide/Mg Hydroxide (Mylanta Plus Xs) 30 ml PRN Q4HRS PRN PO DYSPEPSIA 03/07/21 21:00 Magnesium Hydroxide (Milk Of Magnesia) 2,400 mg PRN QHS PRN PO CONSTIPATION 03/07/21 21:00 03/08/21 17:27 Ondansetron HCl (Zofran Odt) 4 mg PRN Q12HR PRN PO NAUSEA/VOMITING 03/07/21 21:00 Polyethylene Glycol (miraLAX) 17 gm PRN DAILY PRN PO CONSTIPATION 03/07/21 21:00 Quetiapine Fumarate (SEROquel) 300 mg HS PO 03/07/21 21:00 03/08/21 21:02 Quetiapine Fumarate (SEROquel) 75 mg TIDAC PO 03/08/21 11:30 03/08/21 17:27 Current Medications Medications (Trade) Dose Ordered Sig/Kaley Route PRN Reason Start Time Stop Time Status Last Admin Dose Admin Aspirin (Aspirin Chewable) 81 mg DAILY PO 03/08/21 09:00 03/08/21 08:18 Carbidopa/Levodopa (Sinemet 25/100) 1 tab qid@08,10,13,16 PO 03/08/21 08:00 03/08/21 17:27 Folic Acid (Folic Acid) 1 mg DAILY PO 03/08/21 09:00 03/08/21 08:18 Lisinopril (Prinivil) 2.5 mg DAILY PO 03/08/21 09:00 03/08/21 08:17 Metformin HCl (Glucophage Xr) 1,000 mg DAILYWBKFT PO 03/08/21 08:00 03/08/21 08:18 Vitamin D (Vitamin D3) 1,000 unit DAILY PO 03/08/21 09:00 03/08/21 08:16 Citalopram Hydrobromide (CeleXA) 20 mg DAILY PO 03/08/21 09:00 03/08/21 08:17 Lubiprostone (Amitiza) 24 mcg BIDWMEALS PO 03/08/21 08:00 03/08/21 17:27 Quetiapine Fumarate (SEROquel) 75 mg TIDAC PO 03/08/21 11:30 03/08/21 17:27 I have reviewed the current psychotropics carefully including drug interactions. Risk benefit ratio favors no change other than as noted in my dictated progress note. Diagnosis: Problems: (1) Anxiety disorder (2) Major depressive disorder, recurrent episode (3) Impulse control disorder (4) Bipolar affective, mixed LUTHER WARNER MD Mar 08, 2021 21:58
--- NOTE | 2021-03-08 22:37 | HP ---
ADMIT DATE: 03/07/2021 PSYCHIATRIC ADMISSION HISTORY/EVALUATION This is a late entry, date of service, 03/07/2021, covers elements not covered in my initial note of 03/07/2021. I met with the patient on the evening of 03/07/2021 for this evaluation. IDENTIFYING DATA: The patient is a 61-year-old male referred back to us [facility] on account of worsening symptoms of depression, suicidal ideation, but no plan. He stated he was having command hallucinations, increased anxiety. He was taken to [facility], medically stabilized, restarted on Klonopin and BuSpar for his anxiety and then referred for inpatient psychiatric stabilization. CHIEF COMPLAINT: "I am doing better back on the Klonopin and buspirone." HISTORY OF PRESENT ILLNESS: The patient has a history of Parkinson's disease and progressively worsening major depressive disorder. He complains of feeling helpless, hopeless, worthless, marked anxiety, obsessiveness, suicidal ideation with no plan. He reports he was having command hallucinations, increased anxiety. He has failed outpatient psychiatric interventions resulting in this referral. PAST PSYCHIATRIC HISTORY: As above. MEDICAL HISTORY: Parkinson's disease, diabetes mellitus, hypertension, GERD. ACCU-CHEKS: Daily. CODE STATUS: DNR. ALLERGIES: PREDNISONE, CONTRAST DYE. DIET: ADA. Accu-Cheks daily. Takes medications whole. Ambulates ad jacy and walker. Repeat UA is awaited. CURRENT PSYCHOTROPICS: BuSpar 20 mg t.i.d.; Sinemet 25/100 at 0800, 1000, 1300, 1600; Klonopin 0.5 mg b.i.d.; Lexapro 10 mg a day; lamotrigine 200 mg twice a day; Seroquel 75 mg t.i.d., 300 mg at bedtime. FAMILY HISTORY: Noncontributory. SOCIAL HISTORY: No alcohol, drug abuse, physical, sexual or elder abuse history is noted. Not known to be a perpetrator. REACTION TO HOSPITALIZATION: The patient is well aware of this. ASSETS: Supportive living at the facility, supportive family. REVIEW OF SYSTEMS: Impaired ambulation. No CV, , pulmonary, eye system symptoms on review. MENTAL STATUS EXAM: The patient is reasonably oriented. Speech coherent. Abstraction fair. Computation impaired. Language function intact. Mood and affect; depressed, anxious. No suicidal or homicidal ideation. Somewhat distractible. IMPRESSION: Major depressive disorder with psychotic features; anxiety disorder, unspecified; impulse control disorder, unspecified; rest as above. PLAN: Admit to Geropsychiatry Unit at [facility]. I will see the patient daily individually from a psychiatric standpoint, medical followup with Dr. Nugent/Dr. Toth. Continue current psychotropics, observe baseline, then adjust as clinically indicated. He feels his anxiety is much better on Klonopin and buspirone, we will leave these unchanged for now. ESTIMATED LENGTH OF STAY: 10-12 days. DISPOSITION PLANS: Back to assisted when stable. IFRAH DR: Axel TID: [id number]
[2021-03-09 01:13] LABS: HEMOGLOBIN A1C 5.4 % (4.8-5.6)
--- NOTE | 2021-03-09 03:05 | CONS ---
DATE OF CONSULTATION: 03/08/2021 REASON FOR CONSULTATION: Medical management. HISTORY OF PRESENT ILLNESS: The patient is a 61-year-old male patient, a resident at [facility], who was admitted on account of suicidal ideation without any plan. He has command hallucination and decreased anxiety. Apparently, this started about 2 weeks ago according to him, he was started on Seroquel and that has managed to control his hallucination ____ but did not eliminate them completely. PAST MEDICAL HISTORY: Significant for hypertension, type 2 diabetes mellitus, gastroesophageal reflux disease, and Parkinson's disease. Other medical problems include ulcerative colitis, chronic constipation, chronic right knee pain. PAST PSYCHIATRIC HISTORY: Significant for short-term memory loss. PAST SURGICAL HISTORY: Significant for deep brain stimulator placement for Parkinson's disease, also had a right inguinal hernia repair and surgery on his right leg and ankle joint. ALLERGIES: HE IS ALLERGIC TO IODINATED CONTRAST MEDIA AND PREDNISOLONE. MEDICATIONS: He is currently on the following medication: He is on atorvastatin calcium 20 mg at bedtime, lisinopril 2.5 mg daily, aspirin 81 mg once a day, acetaminophen 650 mg every 6 hours, clonazepam 0.5 mg twice a day, lamotrigine 200 mg twice a day, escitalopram oxalate 10 mg daily, quetiapine fumarate 300 mg at bedtime, quetiapine fumarate 75 mg 3 times a day with meals. He is on buspirone 20 mg 3 times a day, Sinemet 25/100 one tablet at bedtime, carbidopa/levodopa 25/100 tablet one tablet p.o. 4 times a day at 8, 10, 13, and 16. He is also on Maalox 30 mL every 4 hours as needed, magnesium hydroxide for milk of magnesia at 30 mL p.o. daily p.r.n. for constipation, senna lax 1 tablet twice a day, ondansetron 4 mg every 12 hours as needed, famotidine 20 mg twice a day, linaclotide for Linzess 145 mcg once a day, metformin 1000 mg daily, vitamin B complex 1 tablet once a day, vitamin D 1000 units once a day and polyethylene glycol 17 g daily p.r.n. for constipation. FAMILY HISTORY: Noncontributory to his present illness. However, his father had of chronic obstructive pulmonary disease and mother has had heart disease and diabetes mellitus. SOCIAL HISTORY: He is ; however, he lives in [facility]. His lives at home, has 3 children. He is a former smoker, started at the age of 17, stopped about at the age of 19. He used to be a heavy drinker, also that he is currently on disability. PHYSICAL EXAMINATION: GENERAL: When I examined him this afternoon, he looked well and was clearly in no apparent respiratory distress. He was somewhat pale, but no jaundice, cyanosis or thyromegaly. No jugular venous distention. No limb edema. VITAL SIGNS: His heart rate was 94, blood pressure 100/68, temperature 97.3, respiratory rate 20, and oxygen saturation was 97%. HEAD, EYES, EARS, NOSE, AND THROAT: Normocephalic, atraumatic. NECK: Supple. HEART: Normal first and second heart sounds, no gallop or murmur. CHEST: Clear to auscultation, no crepitation or rhonchi. ABDOMEN: Distended, soft, nontender. NEUROLOGIC: He was awake, alert, oriented to time, place and person. All his cranial nerves are intact. He moves extremities without difficulty. He has no tremors, but he has dyskinesia and expressionless face. LABORATORY DATA: Showed a white cell count 7000, hemoglobin 15, hematocrit 44, MCV 92 and platelet count of 202,000 with normal manual differential. His serum sodium was 143, potassium 3.8, chloride 104, bicarbonate 28, anion gap of 11, BUN 12, creatinine 0.7. Estimated GFR was 115 mL per minute. His glucose was 111. His calcium was 9, magnesium was 2.2. His serum iron was 91, TIBC was 302 and iron saturation was 30. His total bilirubin, AST, ALT, alkaline phosphatase were normal. Total protein 6.7, albumin was 3.6. Serum triglycerides was 99. Total cholesterol 91, LDL cholesterol 29, VLDL was 19 and HDL cholesterol of 43 and the ratio was 2. His vitamin B12 was 514 pg/mL and 25-hydroxy vitamin D was 42. TSH was normal at 2.118. His D-dimer was less than 0.19 and his urinalysis showed that the urine was yellow, clear with a pH of 6, specific gravity of 1.020. The urine was negative for protein, glucose, ketones, blood, nitrite and bilirubin as well as leukocyte esterase with 0 rbc's, 5-10 wbc's and no bacteria. His treponema pallidum antibodies were nonreactive. ASSESSMENT AND PLAN: In summary, this is a 61-year-old male patient, a resident at [facility], who was admitted on account of having suicidal ideation without any plan. He has command hallucination and increased activity. According to him, he was started on Seroquel and that has curbed, although did not eliminate completely the command hallucination and he is here for inpatient psychiatric stabilization. Medically, the patient seems to be all in all stable. He has multiple medical problems including type 2 diabetes, hypertension, hyperlipidemia, and Parkinson's disease. All his labs and vital signs are all within acceptable range. Thank you, Dr. Bey, for allowing me to participate in the care of this patient. FARAZ/KEESHA DR: Rad TID: [id number]
[2021-03-09 05:45] VITALS: BP 97/62
[2021-03-09] MEDS: lamoTRIgine 100 MG TABLET. PO SCH ×2 (08:06→21:56)
[2021-03-09] MEDS: LUBIPROSTONE 24 MCG CAPSULE PO SCH ×2 (08:06→16:48)
[2021-03-09] MEDS: CARBIDOPA/LEVODOPA 25/100MG TABLET PO SCH ×5 (08:06→21:55)
[2021-03-09] MEDS: LISINOPRIL 2.5 MG TABLET PO SCH (08:06)
[2021-03-09] MEDS: metFORMIN XR 500 MG TAB.ER.24H PO SCH (08:07)
[2021-03-09] MEDS: CITALOPRAM 20 MG TABLET. PO SCH (08:07)
[2021-03-09] MEDS: ASPIRIN CHEWABLE 81 MG TABLET. PO SCH (08:07)
[2021-03-09] MEDS: CHOLECALCIFEROL (VITAMIN D3) 1,000 UNIT TABLET PO SCH (08:07)
[2021-03-09] MEDS: QUEtiapine 25 MG TABLET. PO SCH ×3 (08:07→16:48)
[2021-03-09] MEDS: FOLIC ACID 1 MG TABLET PO SCH (08:07)
[2021-03-09] MEDS: FAMOTIDINE 20 MG TABLET PO SCH ×2 (08:08→21:55)
[2021-03-09] MEDS: busPIRone 10 MG TABLET. PO SCH ×3 (08:08→21:55)
[2021-03-09] MEDS: clonazePAM 0.5 MG TABLET PO SCH ×2 (08:08→22:03)
[2021-03-09] MEDS: SENNOSIDES 8.6 MG TABLET PO SCH ×2 (08:08→21:55)
--- NOTE | 2021-03-09 08:32 | PDOC ---
Exam Note: Kal Note: Late entry for 03/07/2021. Please also refer to the separate dictated note~for this date of service dictated separately.~Patient seen individually. Discussed the patient with Nursing staff reviewed the chart.~Reviewed interim history and current functioning. Reviewed vital signs,~Labs/ Radiology~and current medic ations noted below. Continue current treatment with the changes noted in the dictated addendum note Assessment: Vital Signs/I&O: Vital Signs Date Time Temp Pulse Resp B/P (MAP) Pulse Ox O2 Delivery O2 Flow Rate FiO2 03/09/21 08:06 81 97/62 03/09/21 05:45 97.2 18 93 03/07/21 22:29 Room Air I & O 03/08/21 03/08/21 03/09/21 15:00 23:00 07:00 Intake Total 1000 ml 680 ml Balance 1000 ml 680 ml Labs: Laboratory Tests Test 03/09/21 07:40 Glucose (Fingerstick) 109 mg/dL (70-99) H Current Medications: Meds: Laboratory Tests Test 03/09/21 07:40 Glucose (Fingerstick) 109 mg/dL Current Medications Medications (Trade) Dose Ordered Sig/Kaley Route PRN Reason Start Time Stop Time Status Last Admin Dose Admin Acetaminophen (Tylenol) 650 mg PRN Q6HRS PRN PO MILD PAIN / TEMP > 100.3'F 03/07/21 20:30 03/08/21 08:57 Aspirin (Aspirin Chewable) 81 mg DAILY PO 03/08/21 09:00 03/09/21 08:07 Atorvastatin Calcium (Lipitor) 20 mg QHS PO 03/07/21 21:00 03/08/21 21:02 Buspirone HCl (Buspar) 20 mg TID PO 03/07/21 21:00 03/09/21 08:08 Carbidopa/Levodopa (Sinemet 25/100) 1 tab qid@08,10,13,16 PO 03/08/21 08:00 03/09/21 08:06 Carbidopa/Levodopa (Sinemet 25/100) 1 tab HS PO 03/07/21 21:00 03/08/21 21:02 Clonazepam (KlonoPIN) 0.5 mg BID PO 03/07/21 21:00 03/09/21 08:08 Famotidine (Pepcid) 20 mg BID PO 03/07/21 21:00 03/09/21 08:08 Folic Acid (Folic Acid) 1 mg DAILY PO 03/08/21 09:00 03/09/21 08:07 Lisinopril (Prinivil) 2.5 mg DAILY PO 03/08/21 09:00 03/09/21 08:06 Metformin HCl (Glucophage Xr) 1,000 mg DAILYWBKFT PO 03/08/21 08:00 03/09/21 08:07 Quetiapine Fumarate (SEROquel) 75 mg PRN BFRMEAL PRN PO ANXIETY / AGITATION 03/07/21 20:30 03/08/21 11:18 DC Sennosides (Senna) 8.6 mg BID PO 03/07/21 21:00 03/09/21 08:08 Vitamin D (Vitamin D3) 1,000 unit DAILY PO 03/08/21 09:00 03/09/21 08:07 Citalopram Hydrobromide (CeleXA) 20 mg DAILY PO 03/08/21 09:00 03/09/21 08:07 Lamotrigine (LaMICtal) 200 mg BID PO 03/07/21 21:00 03/09/21 08:06 Lubiprostone (Amitiza) 24 mcg BIDWMEALS PO 03/08/21 08:00 03/09/21 08:06 Al Hydroxide/Mg Hydroxide (Mylanta Plus Xs) 30 ml PRN Q4HRS PRN PO DYSPEPSIA 03/07/21 21:00 Magnesium Hydroxide (Milk Of Magnesia) 2,400 mg PRN QHS PRN PO CONSTIPATION 03/07/21 21:00 03/08/21 17:27 Ondansetron HCl (Zofran Odt) 4 mg PRN Q12HR PRN PO NAUSEA/VOMITING 03/07/21 21:00 Polyethylene Glycol (miraLAX) 17 gm PRN DAILY PRN PO CONSTIPATION 03/07/21 21:00 Quetiapine Fumarate (SEROquel) 300 mg HS PO 03/07/21 21:00 03/08/21 21:02 Quetiapine Fumarate (SEROquel) 75 mg TIDAC PO 03/08/21 11:30 03/09/21 08:07 Current Medications Medications (Trade) Dose Ordered Sig/Kaley Route PRN Reason Start Time Stop Time Status Last Admin Dose Admin Aspirin (Aspirin Chewable) 81 mg DAILY PO 03/08/21 09:00 03/09/21 08:07 Folic Acid (Folic Acid) 1 mg DAILY PO 03/08/21 09:00 03/09/21 08:07 Lisinopril (Prinivil) 2.5 mg DAILY PO 03/08/21 09:00 03/09/21 08:06 Vitamin D (Vitamin D3) 1,000 unit DAILY PO 03/08/21 09:00 03/09/21 08:07 Citalopram Hydrobromide (CeleXA) 20 mg DAILY PO 03/08/21 09:00 03/09/21 08:07 Quetiapine Fumarate (SEROquel) 75 mg TIDAC PO 03/08/21 11:30 03/09/21 08:07 I have reviewed the current psychotropics carefully including drug interactions. Risk benefit ratio favors no change other than as noted in my dictated progress note. Diagnosis: Problems: (1) Anxiety disorder (2) Major depressive disorder, recurrent episode (3) Impulse control disorder LUTHER WARNER MD Mar 09, 2021 08:32
--- NOTE | 2021-03-09 08:47 | PDOC ---
Exam Note: Kal Note: This note is a late entry for 03/08/2021 covers elements not covered in my initial note. Subjective: The patient was seen individually in the evening of 03/08/2021 with Sabiha BALLARD, discussed and reviewed the chart. The patient slept 6 hours previous night. Patient is alert and oriented, somewhat isolative. No suicidal or homicidal ideation. He is fixated on his medications today. Urine culture awaited. Review of Systems: Ambulation impaired. No CV, , pulmonary, eye, ENT system symptoms on review. Reliability poor. Mental Status Exam: The patient is reasonably oriented. Speech coherent has some latency. Abstraction fair. Computation impaired. Language function intact. Mood and affect somewhat withdrawn. Laboratory Data: Reviewed. Impression: Major depressive disorder with psychotic features. Anxiety disorder unspecified. Impulse control disorder unspecified. Plan: Continue current psychotropics including Klonopin and BuSpar, Lexapro, Lamotrigine, Seroquel. Adjust further as clinically indicated. Assessment: Vital Signs/I&O: Vital Signs Date Time Temp Pulse Resp B/P (MAP) Pulse Ox O2 Delivery O2 Flow Rate FiO2 03/09/21 08:06 81 97/62 03/09/21 05:45 97.2 18 93 03/07/21 22:29 Room Air I & O0 03/08/21 03/08/21 03/09/21 15:00 23:00 07:00 Intake Total 1000 ml 680 ml Balance 1000 ml 680 ml Labs: Laboratory Tests Test 03/09/21 07:40 Glucose (Fingerstick) 109 mg/dL (70-99) H Current Medications: Meds: Laboratory Tests Test 03/09/21 07:40 Glucose (Fingerstick) 109 mg/dL Current Medications Medications (Trade) Dose Ordered Sig/Kaley Route PRN Reason Start Time Stop Time Status Last Admin Dose Admin Acetaminophen (Tylenol) 650 mg PRN Q6HRS PRN PO MILD PAIN / TEMP > 100.3'F 03/07/21 20:30 03/08/21 08:57 Aspirin (Aspirin Chewable) 81 mg DAILY PO 03/08/21 09:00 03/09/21 08:07 Atorvastatin Calcium (Lipitor) 20 mg QHS PO 03/07/21 21:00 03/08/21 21:02 Buspirone HCl (Buspar) 20 mg TID PO 03/07/21 21:00 03/09/21 08:08 Carbidopa/Levodopa (Sinemet 25/100) 1 tab qid@08,10,13,16 PO 03/08/21 08:00 03/09/21 08:06 Carbidopa/Levodopa (Sinemet 25/100) 1 tab HS PO 03/07/21 21:00 03/08/21 21:02 Clonazepam (KlonoPIN) 0.5 mg BID PO 03/07/21 21:00 03/09/21 08:08 Famotidine (Pepcid) 20 mg BID PO 03/07/21 21:00 03/09/21 08:08 Folic Acid (Folic Acid) 1 mg DAILY PO 03/08/21 09:00 03/09/21 08:07 Lisinopril (Prinivil) 2.5 mg DAILY PO 03/08/21 09:00 03/09/21 08:06 Metformin HCl (Glucophage Xr) 1,000 mg DAILYWBKFT PO 03/08/21 08:00 03/09/21 08:07 Quetiapine Fumarate (SEROquel) 75 mg PRN BFRMEAL PRN PO ANXIETY / AGITATION 03/07/21 20:30 03/08/21 11:18 DC Sennosides (Senna) 8.6 mg BID PO 03/07/21 21:00 03/09/21 08:08 Vitamin D (Vitamin D3) 1,000 unit DAILY PO 03/08/21 09:00 03/09/21 08:07 Citalopram Hydrobromide (CeleXA) 20 mg DAILY PO 03/08/21 09:00 03/09/21 08:07 Lamotrigine (LaMICtal) 200 mg BID PO 03/07/21 21:00 03/09/21 08:06 Lubiprostone (Amitiza) 24 mcg BIDWMEALS PO 03/08/21 08:00 03/09/21 08:06 Al Hydroxide/Mg Hydroxide (Mylanta Plus Xs) 30 ml PRN Q4HRS PRN PO DYSPEPSIA 03/07/21 21:00 Magnesium Hydroxide (Milk Of Magnesia) 2,400 mg PRN QHS PRN PO CONSTIPATION 03/07/21 21:00 03/08/21 17:27 Ondansetron HCl (Zofran Odt) 4 mg PRN Q12HR PRN PO NAUSEA/VOMITING 03/07/21 21:00 Polyethylene Glycol (miraLAX) 17 gm PRN DAILY PRN PO CONSTIPATION 03/07/21 21:00 Quetiapine Fumarate (SEROquel) 300 mg HS PO 03/07/21 21:00 03/08/21 21:02 Quetiapine Fumarate (SEROquel) 75 mg TIDAC PO 03/08/21 11:30 03/09/21 08:07 Current Medications Medications (Trade) Dose Ordered Sig/Kaley Route PRN Reason Start Time Stop Time Status Last Admin Dose Admin Aspirin (Aspirin Chewable) 81 mg DAILY PO 03/08/21 09:00 03/09/21 08:07 Folic Acid (Folic Acid) 1 mg DAILY PO 03/08/21 09:00 03/09/21 08:07 Lisinopril (Prinivil) 2.5 mg DAILY PO 03/08/21 09:00 03/09/21 08:06 Vitamin D (Vitamin D3) 1,000 unit DAILY PO 03/08/21 09:00 03/09/21 08:07 Citalopram Hydrobromide (CeleXA) 20 mg DAILY PO 03/08/21 09:00 03/09/21 08:07 Quetiapine Fumarate (SEROquel) 75 mg TIDAC PO 03/08/21 11:30 03/09/21 08:07 I have reviewed the current psychotropics carefully including drug interactions. Risk benefit ratio favors no change other than as noted in my dictated progress note. Diagnosis: Problems: (1) Major depressive disorder with psychotic features (2) Anxiety disorder (3) Impulse control disorder LUTHER WARNER MD Mar 09, 2021 08:47
[2021-03-09 16:03] VITALS: BP 101/65
[2021-03-09] MEDS: ATORVASTATIN CALCIUM 20 MG TABLET PO SCH (21:55)
[2021-03-09] MEDS: QUEtiapine 100 MG TABLET. PO SCH (21:55)
--- NOTE | 2021-03-09 23:06 | PDOC ---
Exam Note: Kal Note: This note covers elements not covered in my initial note. Subjective: The patient was seen individually in the evening of 03/09/2021 with Trace BALLARD, discussed and reviewed the chart. The patient slept 7 hours previous night. Overall patient has been withdrawn to his room, listens to music. Denies suicidal ideation. Review of Systems: Ambulation impaired. No specific CV, , pulmonary, eye, ENT system symptoms on review. Mental Status Exam: The patient is reasonably oriented. Speech coherent has some latency. Abstraction fair. Computation impaired. Language function intact. Mood and affect is withdrawn but improved. Laboratory Data: Reviewed. Impression: Major depressive disorder with psychotic features. Anxiety disorder unspecified. Impulse control disorder unspecified. Plan: Continue current psychotropics including Klonopin and BuSpar, Lexapro, Lamotrigine, Seroquel. He remains on Sinemet for his Parkinsons. Adjust as clinically indicated. Assessment: Vital Signs/I&O: Vital Signs Date Time Temp Pulse Resp B/P (MAP) Pulse Ox O2 Delivery O2 Flow Rate FiO2 03/09/21 16:03 98.4 90 16 101/65 (77) 96 03/07/21 22:29 Room Air I & O 03/08/21 03/08/21 03/09/21 15:00 23:00 07:00 Intake Total 1000 ml 680 ml Balance 1000 ml 680 ml Labs: Laboratory Tests Test 03/09/21 05:30 03/09/21 07:40 SARS-CoV-2 (PCR) Not detected (NOT DETECTD) Glucose (Fingerstick) 109 mg/dL (70-99) H Current Medications: Meds: Laboratory Tests Test 03/09/21 05:30 03/09/21 07:40 Coronavirus (COVID-19)(PCR) Not detected Glucose (Fingerstick) 109 mg/dL Current Medications Medications (Trade) Dose Ordered Sig/Kaley Route PRN Reason Start Time Stop Time Status Last Admin Dose Admin Acetaminophen (Tylenol) 650 mg PRN Q6HRS PRN PO MILD PAIN / TEMP > 100.3'F 03/07/21 20:30 03/08/21 08:57 Aspirin (Aspirin Chewable) 81 mg DAILY PO 03/08/21 09:00 03/09/21 08:07 Atorvastatin Calcium (Lipitor) 20 mg QHS PO 03/07/21 21:00 03/09/21 21:55 Buspirone HCl (Buspar) 20 mg TID PO 03/07/21 21:00 03/09/21 21:55 Carbidopa/Levodopa (Sinemet 25/100) 1 tab qid@08,10,13,16 PO 03/08/21 08:00 03/09/21 16:48 Carbidopa/Levodopa (Sinemet 25/100) 1 tab HS PO 03/07/21 21:00 03/09/21 21:55 Clonazepam (KlonoPIN) 0.5 mg BID PO 03/07/21 21:00 03/09/21 22:03 Famotidine (Pepcid) 20 mg BID PO 03/07/21 21:00 03/09/21 21:55 Folic Acid (Folic Acid) 1 mg DAILY PO 03/08/21 09:00 03/09/21 08:07 Lisinopril (Prinivil) 2.5 mg DAILY PO 03/08/21 09:00 03/09/21 08:06 Metformin HCl (Glucophage Xr) 1,000 mg DAILYWBKFT PO 03/08/21 08:00 03/09/21 08:07 Quetiapine Fumarate (SEROquel) 75 mg PRN BFRMEAL PRN PO ANXIETY / AGITATION 03/07/21 20:30 03/08/21 11:18 DC Sennosides (Senna) 8.6 mg BID PO 03/07/21 21:00 03/09/21 21:55 Vitamin D (Vitamin D3) 1,000 unit DAILY PO 03/08/21 09:00 03/09/21 08:07 Citalopram Hydrobromide (CeleXA) 20 mg DAILY PO 03/08/21 09:00 03/09/21 08:07 Lamotrigine (LaMICtal) 200 mg BID PO 03/07/21 21:00 03/09/21 21:56 Lubiprostone (Amitiza) 24 mcg BIDWMEALS PO 03/08/21 08:00 03/09/21 16:48 Al Hydroxide/Mg Hydroxide (Mylanta Plus Xs) 30 ml PRN Q4HRS PRN PO DYSPEPSIA 03/07/21 21:00 Magnesium Hydroxide (Milk Of Magnesia) 2,400 mg PRN QHS PRN PO 2ND CHOICE CONSTIPATION 03/07/21 21:00 03/08/21 17:27 Ondansetron HCl (Zofran Odt) 4 mg PRN Q12HR PRN PO NAUSEA/VOMITING 03/07/21 21:00 Polyethylene Glycol (miraLAX) 17 gm PRN DAILY PRN PO 1ST CHOICE CONSTIPATION 03/07/21 21:00 Quetiapine Fumarate (SEROquel) 300 mg HS PO 03/07/21 21:00 03/09/21 21:55 Quetiapine Fumarate (SEROquel) 75 mg TIDAC PO 03/08/21 11:30 03/09/21 16:48 I have reviewed the current psychotropics carefully including drug interactions. Risk benefit ratio favors no change other than as noted in my dictated progress note. Diagnosis: Problems: (1) Major depressive disorder with psychotic features (2) Anxiety disorder (3) Major depressive disorder, recurrent episode (4) Impulse control disorder LUTHER WARNER MD Mar 09, 2021 23:06
[2021-03-10 06:41] VITALS: BP 108/70
[2021-03-10] MEDS: LUBIPROSTONE 24 MCG CAPSULE PO SCH ×2 (08:00→17:06)
[2021-03-10] MEDS: FOLIC ACID 1 MG TABLET PO SCH (08:31)
[2021-03-10] MEDS: QUEtiapine 25 MG TABLET. PO SCH ×3 (08:32→17:06)
[2021-03-10] MEDS: CHOLECALCIFEROL (VITAMIN D3) 1,000 UNIT TABLET PO SCH (08:32)
[2021-03-10] MEDS: metFORMIN XR 500 MG TAB.ER.24H PO SCH (08:32)
[2021-03-10] MEDS: CITALOPRAM 20 MG TABLET. PO SCH (08:32)
[2021-03-10] MEDS: FAMOTIDINE 20 MG TABLET PO SCH ×2 (08:32→21:24)
[2021-03-10] MEDS: ASPIRIN CHEWABLE 81 MG TABLET. PO SCH (08:32)
[2021-03-10] MEDS: CARBIDOPA/LEVODOPA 25/100MG TABLET PO SCH ×5 (08:32→21:24)
[2021-03-10] MEDS: busPIRone 10 MG TABLET. PO SCH ×3 (08:32→21:24)
[2021-03-10] MEDS: lamoTRIgine 100 MG TABLET. PO SCH ×2 (08:33→21:23)
[2021-03-10] MEDS: LISINOPRIL 2.5 MG TABLET PO SCH (08:33)
[2021-03-10] MEDS: SENNOSIDES 8.6 MG TABLET PO SCH ×2 (08:33→21:24)
[2021-03-10] MEDS: clonazePAM 0.5 MG TABLET PO SCH ×2 (08:33→21:24)
[2021-03-10] MEDS: ACETAMINOPHEN 325 MG TABLET PO PRN (08:35)
--- NOTE | 2021-03-10 13:35 | CONS ---
DATE OF CONSULTATION: 03/09/2021 This is late entry for date of service, 03/09, covers the elements not covered in my initial note of 03/09. The previously transcribed note was inadvertently dictated as a template note and should be disregarded. This current dictation would be the sole transcribed note for 03/09. The patient was reviewed on rounds. Discussed with ELIO Woodward. Reviewed current and past records. Overall, the patient is doing better. He slept 7 hours previous night. He remains withdrawn, spends much time in his room, but I could not find him to visit with him individually. He listens to music and reads books. He denied any suicidal ideation. Per nursing report, ambulation impaired with walker. Otherwise, no specific review of systems symptoms. No CV, , GI, pulmonary, eye system symptoms. MENTAL STATUS EXAM: The patient has been alert, oriented, cooperative, somewhat withdrawn. Denies suicidal ideation. Anxiety is much better since he has been on Klonopin and BuSpar and he is quite consistent with this. He remains on Lexapro 10 mg a day, Klonopin 0.5 b.i.d., BuSpar 20 mg 3 times a day, Seroquel 75 mg 3 times a day, 300 mg at bedtime, lamotrigine 200 mg b.i.d. IMPRESSION: Major depressive disorder with psychotic features, in partial remission; anxiety disorder, unspecified. PLAN: From a psychiatric standpoint, continue his current psychotropics. He remains on Sinemet for his Parkinson's, which we will leave unchanged. If anxiety resurfaces, we may increase the Seroquel, especially if mood lability resurfaces as well. We will plan for [facility], right after the weekend if he does well until then. ALMA DELIA/MARCY DR: Axel TID: [id number]
[2021-03-10 16:00] VITALS: BP 112/73
[2021-03-10] MEDS: ATORVASTATIN CALCIUM 20 MG TABLET PO SCH (21:24)
[2021-03-10] MEDS: QUEtiapine 100 MG TABLET. PO SCH (21:24)
--- NOTE | 2021-03-10 22:05 | PDOC ---
Exam Note: Kal Note: Please also refer to the separate dictated note~for this date of service dictated separately.~Patient seen individually. Discussed the patient with Nursing staff reviewed the chart.~Reviewed interim history and current functioning. Reviewed vital signs,~Labs/ Radiology~and current medications noted below. Continue current treatment with the changes noted in the dictated addendum note Assessment: Vital Signs/I&O: Vital Signs Date Time Temp Pulse Resp B/P (MAP) Pulse Ox O2 Delivery O2 Flow Rate FiO2 03/10/21 16:00 97.3 90 20 112/73 (86) 96 03/07/21 22:29 Room Air I & O 03/09/21 03/09/21 03/10/21 15:00 23:00 07:00 Intake Total 960 ml 120 ml Balance 960 ml 120 ml Labs: Laboratory Tests Test 03/10/21 07:39 Glucose (Fingerstick) 125 mg/dL (70-99) H Current Medications: Meds: Laboratory Tests Test 03/10/21 07:39 Glucose (Fingerstick) 125 mg/dL Current Medications Medications (Trade) Dose Ordered Sig/Kaley Route PRN Reason Start Time Stop Time Status Last Admin Dose Admin Acetaminophen (Tylenol) 650 mg PRN Q6HRS PRN PO MILD PAIN / TEMP > 100.3'F 03/07/21 20:30 03/10/21 08:35 Aspirin (Aspirin Chewable) 81 mg DAILY PO 03/08/21 09:00 03/10/21 08:32 Atorvastatin Calcium (Lipitor) 20 mg QHS PO 03/07/21 21:00 03/10/21 21:24 Buspirone HCl (Buspar) 20 mg TID PO 03/07/21 21:00 03/10/21 21:24 Carbidopa/Levodopa (Sinemet 25/100) 1 tab qid@08,10,13,16 PO 03/08/21 08:00 03/10/21 17:06 Carbidopa/Levodopa (Sinemet 25/100) 1 tab HS PO 03/07/21 21:00 03/10/21 21:24 Clonazepam (KlonoPIN) 0.5 mg BID PO 03/07/21 21:00 03/10/21 21:24 Famotidine (Pepcid) 20 mg BID PO 03/07/21 21:00 03/10/21 21:24 Folic Acid (Folic Acid) 1 mg DAILY PO 03/08/21 09:00 03/10/21 08:31 Lisinopril (Prinivil) 2.5 mg DAILY PO 03/08/21 09:00 03/10/21 08:33 Metformin HCl (Glucophage Xr) 1,000 mg DAILYWBKFT PO 03/08/21 08:00 03/10/21 08:32 Quetiapine Fumarate (SEROquel) 75 mg PRN BFRMEAL PRN PO ANXIETY / AGITATION 03/07/21 20:30 03/08/21 11:18 DC Sennosides (Senna) 8.6 mg BID PO 03/07/21 21:00 03/10/21 21:24 Vitamin D (Vitamin D3) 1,000 unit DAILY PO 03/08/21 09:00 03/10/21 08:32 Citalopram Hydrobromide (CeleXA) 20 mg DAILY PO 03/08/21 09:00 03/10/21 08:32 Lamotrigine (LaMICtal) 200 mg BID PO 03/07/21 21:00 03/10/21 21:23 Lubiprostone (Amitiza) 24 mcg BIDWMEALS PO 03/08/21 08:00 03/10/21 17:06 Al Hydroxide/Mg Hydroxide (Mylanta Plus Xs) 30 ml PRN Q4HRS PRN PO DYSPEPSIA 03/07/21 21:00 Magnesium Hydroxide (Milk Of Magnesia) 2,400 mg PRN QHS PRN PO 2ND CHOICE CONSTIPATION 03/07/21 21:00 03/08/21 17:27 Ondansetron HCl (Zofran Odt) 4 mg PRN Q12HR PRN PO NAUSEA/VOMITING 03/07/21 21:00 Polyethylene Glycol (miraLAX) 17 gm PRN DAILY PRN PO 1ST CHOICE CONSTIPATION 03/07/21 21:00 Quetiapine Fumarate (SEROquel) 300 mg HS PO 03/07/21 21:00 03/10/21 21:24 Quetiapine Fumarate (SEROquel) 75 mg TIDAC PO 03/08/21 11:30 03/10/21 17:06 I have reviewed the current psychotropics carefully including drug interactions. Risk benefit ratio favors no change other than as noted in my dictated progress note. Diagnosis: Problems: (1) Major depressive disorder with psychotic features (2) Anxiety disorder (3) Impulse control disorder LUTHER WARNER MD Mar 10, 2021 22:05
[2021-03-11 06:05] VITALS: BP 108/74
[2021-03-11] MEDS: CARBIDOPA/LEVODOPA 25/100MG TABLET PO SCH ×5 (08:00→21:09)
[2021-03-11] MEDS: busPIRone 10 MG TABLET. PO SCH ×3 (08:14→21:09)
[2021-03-11] MEDS: SENNOSIDES 8.6 MG TABLET PO SCH ×2 (08:15→21:09)
[2021-03-11] MEDS: FAMOTIDINE 20 MG TABLET PO SCH ×2 (08:15→21:09)
[2021-03-11] MEDS: LUBIPROSTONE 24 MCG CAPSULE PO SCH ×2 (08:15→17:34)
[2021-03-11] MEDS: metFORMIN XR 500 MG TAB.ER.24H PO SCH (08:15)
[2021-03-11] MEDS: CITALOPRAM 20 MG TABLET. PO SCH (08:15)
[2021-03-11] MEDS: CHOLECALCIFEROL (VITAMIN D3) 1,000 UNIT TABLET PO SCH (08:15)
[2021-03-11] MEDS: LISINOPRIL 2.5 MG TABLET PO SCH (08:15)
[2021-03-11] MEDS: QUEtiapine 25 MG TABLET. PO SCH ×3 (08:16→17:35)
[2021-03-11] MEDS: FOLIC ACID 1 MG TABLET PO SCH (08:16)
[2021-03-11] MEDS: ASPIRIN CHEWABLE 81 MG TABLET. PO SCH (08:16)
[2021-03-11] MEDS: clonazePAM 0.5 MG TABLET PO SCH ×2 (08:16→21:11)
[2021-03-11] MEDS: lamoTRIgine 100 MG TABLET. PO SCH ×2 (08:16→21:09)
--- NOTE | 2021-03-11 15:02 | TX PLAN ---
Interdisciplinary Tx Plan Admission Information Mar 07, 2021 at 20:13 Legal Status (on Admission): Voluntary DPOA/Guardian Name: Pita Bray, Contact Other Contact Name: [facility] [place] Other Contact Verified Code Status: DNR Allergies: Coded Allergies: Iodinated Contrast Media (Verified Allergy, Intermediate, 07/25/18) prednisolone (Verified Allergy, Intermediate, 07/25/18) Diagnoses Primary Diagnosis: MDD with psychotic features Reasons for Admission: Depressed, Suicidal ideation, Poor impulse control Problem in Patient's Words: N/A Additional Admission Comments: According to the intake pt is SI, hearing voices that he devil is telling him to hurt himself or others, depressed. Problems Active Problems: Withdrawn Inactive Problems: Medication compliant Pt Strengths/Limitations Ability for [place]: Poor Cognitive Functioning/Ability: Fair Communication Skills/Ability: Fair Financial Resources: Fair Insight/Judgement: Poor Intellectual Ability: Fair Physical Health: Fair Social Skills: Poor Stability in Family: Good Stability in School/Work: Poor Verbal Skills: Fair Discharge Criteria Discharge Criteria: Able meet basic life need, No need for close observ., Adequate arrangements @DC, Improved behavior, Improved mood/thought Preliminary Discharge Plan Preliminary DC Plan: Current Living Arrange. Special Precautions Fall Risk: Low Initial D/C Plan Pt to [facility] Identified Discharge Needs: Increased need for counseling services Currently Utilized Resources Currently Utilized Resources/P: Primary care physician Psychiatry through Cristian Leggett Identified Problems/Hx/Goals Objectives/Short-Term Goals Short Term Goals: Dec. Anxiety/Panic, Dec. Symp. Depression, Medication Stabilization, Promote Coping Skill Short Term Goals in Patient's: N/A Interventions/Frequency Staff Interventions/Frequency&: Psychiatrist to assess pt at least 3x per week for medication managment. Social Work to assess pt at least 2x per week to identify barriers to care and finalize discharge plans. Nursing to assess medication effects, behavior management and complete 15 minute checks daily. Encourage participation in group activities (if applicable) or 1:1 engagement based off activity therapy. 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
[2021-03-11 15:41] VITALS: BP 90/58
[2021-03-11] MEDS: QUEtiapine 100 MG TABLET. PO SCH (21:09)
[2021-03-11] MEDS: ATORVASTATIN CALCIUM 20 MG TABLET PO SCH (21:09)
--- NOTE | 2021-03-12 05:24 | PN ---
DATE: 03/10/2021 This is a late entry of 03/10, covers the elements not covered in my initial note of 03/10. I met with the patient in the evening at length in his room. He had written out a list of about 12 questions and we went through each one of those individually and answered them for him. He is somewhat obsessive, ruminative. The patient was also reviewed and had treatment team meeting with the entire team in the morning and ELIO Woodward. Slept 7 hours previous night. Appetite 90%. He is well oriented, somewhat withdrawn, listens to music and reads his book during the day. REVIEW OF SYSTEMS: No CV, , pulmonary, eye system symptoms on review. Does have some gait disturbance due to his Parkinson's and movement disorder. MENTAL STATUS EXAMINATION: Reasonably oriented. Speech is coherent. Abstraction fair. Computation impaired. Language function intact. Attention span short. Mood and affect somewhat withdrawn less. No suicidal ideation. No clear psychotic symptoms. Mood is improved. Labs reviewed. IMPRESSION: Major depressive disorder with psychotic features, in partial remission. Rest unchanged. PLAN: Continue current psychotropics, Celexa, Klonopin, BuSpar, Seroquel and lamotrigine and he is on Sinemet for his Parkinson's. ANGELICA DR: Axel TID: [id number]
[2021-03-12 06:30] VITALS: BP 107/70
[2021-03-12] MEDS: LUBIPROSTONE 24 MCG CAPSULE PO SCH ×2 (08:13→17:18)
[2021-03-12] MEDS: busPIRone 10 MG TABLET. PO SCH ×3 (08:14→20:38)
[2021-03-12] MEDS: metFORMIN XR 500 MG TAB.ER.24H PO SCH (08:14)
[2021-03-12] MEDS: LISINOPRIL 2.5 MG TABLET PO SCH (08:14)
[2021-03-12] MEDS: ASPIRIN CHEWABLE 81 MG TABLET. PO SCH (08:14)
[2021-03-12] MEDS: FAMOTIDINE 20 MG TABLET PO SCH ×2 (08:14→20:38)
[2021-03-12] MEDS: CHOLECALCIFEROL (VITAMIN D3) 1,000 UNIT TABLET PO SCH (08:14)
[2021-03-12] MEDS: lamoTRIgine 100 MG TABLET. PO SCH ×2 (08:14→20:38)
[2021-03-12] MEDS: SENNOSIDES 8.6 MG TABLET PO SCH ×2 (08:14→20:38)
[2021-03-12] MEDS: FOLIC ACID 1 MG TABLET PO SCH (08:15)
[2021-03-12] MEDS: QUEtiapine 25 MG TABLET. PO SCH ×3 (08:15→17:18)
[2021-03-12] MEDS: CARBIDOPA/LEVODOPA 25/100MG TABLET PO SCH ×5 (08:15→20:38)
[2021-03-12] MEDS: clonazePAM 0.5 MG TABLET PO SCH ×2 (08:15→20:40)
[2021-03-12] MEDS: CITALOPRAM 20 MG TABLET. PO SCH (08:15)
--- NOTE | 2021-03-12 08:53 | PDOC ---
Exam Note: Kal Note: Late entry for 03/11/2021. Please also refer to the separate dictated note~for this date of service dictated separately.~Patient seen individually. Discussed the patient with Nursing staff reviewed the chart.~Reviewed interim history and current functioning. Reviewed vital signs,~Labs/ Radiology~and current medi cations noted below. Continue current treatment with the changes noted in the dictated addendum note Assessment: Vital Signs/I&O: Vital Signs Date Time Temp Pulse Resp B/P (MAP) Pulse Ox O2 Delivery O2 Flow Rate FiO2 03/12/21 08:14 66 107/70 03/12/21 06:30 97.9 16 95 03/07/21 22:29 Room Air I & O 03/11/21 03/11/21 03/12/21 15:00 23:00 07:00 Intake Total 1060 ml 610 ml Balance 1060 ml 610 ml Labs: Laboratory Tests Test 03/12/21 07:33 Glucose (Fingerstick) 114 mg/dL (70-99) H Current Medications: I have reviewed the current psychotropics carefully including drug interactions. Risk benefit ratio favors no change other than as noted in my dictated progress note. Diagnosis: Problems: (1) Major depressive disorder with psychotic features (2) Anxiety disorder (3) Major depressive disorder, recurrent episode (4) Impulse control disorder (5) Bipolar affective, mixed LUTHER WARNER MD Mar 12, 2021 08:53
[2021-03-12 16:06] VITALS: BP 106/68
[2021-03-12] MEDS: ATORVASTATIN CALCIUM 20 MG TABLET PO SCH (20:38)
[2021-03-12] MEDS: QUEtiapine 100 MG TABLET. PO SCH (20:39)
--- NOTE | 2021-03-12 21:40 | PDOC ---
Exam Note: Kal Note: Please also refer to the separate dictated note~for this date of service dictated separately.~Patient seen individually. Discussed the patient with Nursing staff reviewed the chart.~Reviewed interim history and current functioning. Reviewed vital signs,~Labs/ Radiology~and current medications noted below. Continue current treatment with the changes noted in the dictated addendum note Assessment: Vital Signs/I&O: Vital Signs Date Time Temp Pulse Resp B/P (MAP) Pulse Ox O2 Delivery O2 Flow Rate FiO2 03/12/21 16:06 98.2 98 20 106/68 (81) 95 Room Air I & O 03/11/21 03/11/21 03/12/21 15:00 23:00 07:00 Intake Total 1060 ml 610 ml Balance 1060 ml 610 ml Labs: Laboratory Tests Test 03/12/21 07:33 Glucose (Fingerstick) 114 mg/dL (70-99) H Current Medications: Meds: Laboratory Tests Test 03/12/21 07:33 Glucose (Fingerstick) 114 mg/dL Current Medications Medications (Trade) Dose Ordered Sig/Kaley Route PRN Reason Start Time Stop Time Status Last Admin Dose Admin Acetaminophen (Tylenol) 650 mg PRN Q6HRS PRN PO MILD PAIN / TEMP > 100.3'F 03/07/21 20:30 03/10/21 08:35 Aspirin (Aspirin Chewable) 81 mg DAILY PO 03/08/21 09:00 03/12/21 08:14 Atorvastatin Calcium (Lipitor) 20 mg QHS PO 03/07/21 21:00 03/12/21 20:38 Buspirone HCl (Buspar) 20 mg TID PO 03/07/21 21:00 03/12/21 20:38 Carbidopa/Levodopa (Sinemet 25/100) 1 tab qid@08,10,13,16 PO 03/08/21 08:00 03/12/21 17:18 Carbidopa/Levodopa (Sinemet 25/100) 1 tab HS PO 03/07/21 21:00 03/12/21 20:38 Clonazepam (KlonoPIN) 0.5 mg BID PO 03/07/21 21:00 03/12/21 20:40 Famotidine (Pepcid) 20 mg BID PO 03/07/21 21:00 03/12/21 20:38 Folic Acid (Folic Acid) 1 mg DAILY PO 03/08/21 09:00 03/12/21 08:15 Lisinopril (Prinivil) 2.5 mg DAILY PO 03/08/21 09:00 03/12/21 08:14 Metformin HCl (Glucophage Xr) 1,000 mg DAILYWBKFT PO 03/08/21 08:00 03/12/21 08:14 Quetiapine Fumarate (SEROquel) 75 mg PRN BFRMEAL PRN PO ANXIETY / AGITATION 03/07/21 20:30 03/08/21 11:18 DC Sennosides (Senna) 8.6 mg BID PO 03/07/21 21:00 03/12/21 20:38 Vitamin D (Vitamin D3) 1,000 unit DAILY PO 03/08/21 09:00 03/12/21 08:14 Citalopram Hydrobromide (CeleXA) 20 mg DAILY PO 03/08/21 09:00 03/12/21 08:15 Lamotrigine (LaMICtal) 200 mg BID PO 03/07/21 21:00 03/12/21 20:38 Lubiprostone (Amitiza) 24 mcg BIDWMEALS PO 03/08/21 08:00 03/12/21 17:18 Al Hydroxide/Mg Hydroxide (Mylanta Plus Xs) 30 ml PRN Q4HRS PRN PO DYSPEPSIA 03/07/21 21:00 Magnesium Hydroxide (Milk Of Magnesia) 2,400 mg PRN QHS PRN PO 2ND CHOICE CONSTIPATION 03/07/21 21:00 03/08/21 17:27 Ondansetron HCl (Zofran Odt) 4 mg PRN Q12HR PRN PO NAUSEA/VOMITING 03/07/21 21:00 Polyethylene Glycol (miraLAX) 17 gm PRN DAILY PRN PO 1ST CHOICE CONSTIPATION 03/07/21 21:00 Quetiapine Fumarate (SEROquel) 300 mg HS PO 03/07/21 21:00 03/12/21 20:39 Quetiapine Fumarate (SEROquel) 75 mg TIDAC PO 03/08/21 11:30 03/12/21 17:18 I have reviewed the current psychotropics carefully including drug interactions. Risk benefit ratio favors no change other than as noted in my dictated progress note. Diagnosis: Problems: (1) Major depressive disorder with psychotic features (2) Anxiety disorder (3) Major depressive disorder, recurrent episode (4) Impulse control disorder LUTHER WARNER MD Mar 12, 2021 21:40
--- NOTE | 2021-03-12 22:50 | PN ---
DATE: 03/11/2021 This is a late entry, 03/11/2021, covers the elements not covered in my initial note. Discussed with ELIO Browning. HISTORY OF PRESENT ILLNESS: The patient slept 5-1/2 hours previous night. He has been spending much time in his room quite obsessive about his medications, wanting it precisely at the right time including his Sinemet, some of which is understandable, but he seems over focused on this obsessive and anxious. He had many listed questions that he had to ask me and he had written them out and again went through them, one by one in the evening. I met with him in his room. REVIEW OF SYSTEMS: Ambulation impaired with walker. No CV, , pulmonary, eye system symptoms on review. MENTAL STATUS EXAMINATION: Reasonably oriented. Speech is coherent, has some latency. Abstraction fair. Computation impaired. Language function intact. Attention span fair. Mood and affect somewhat anxious, obsessive. No suicidal or homicidal ideation. LABORATORY DATA: Reviewed. IMPRESSION: Major depressive disorder with psychotic features, rule out obsessive compulsive disorder, anxiety disorder, unspecified. Rest unchanged from before. PLAN: Continue psychotropics from initial note. He remains on BuSpar 60 mg a day, Klonopin 0.5 mg b.i.d., Celexa in place of Lexapro along with lamotrigine 200 mg b.i.d., Seroquel 75 t.i.d., 300 mg at bedtime. He had many questions on the Seroquel, which we addressed. We will make further adjustments as clinically indicated and possibly transition to shelter early next week. ALMA DELIA/JADEN DR: Axel TID: [id number]
[2021-03-13 06:18] VITALS: BP 109/72
[2021-03-13] MEDS: metFORMIN XR 500 MG TAB.ER.24H PO SCH (08:12)
[2021-03-13] MEDS: busPIRone 10 MG TABLET. PO SCH ×3 (08:12→20:48)
[2021-03-13] MEDS: QUEtiapine 25 MG TABLET. PO SCH ×3 (08:12→16:17)
[2021-03-13] MEDS: CITALOPRAM 20 MG TABLET. PO SCH (08:12)
[2021-03-13] MEDS: CARBIDOPA/LEVODOPA 25/100MG TABLET PO SCH ×5 (08:12→20:48)
[2021-03-13] MEDS: FOLIC ACID 1 MG TABLET PO SCH (08:13)
[2021-03-13] MEDS: LUBIPROSTONE 24 MCG CAPSULE PO SCH ×2 (08:13→17:00)
[2021-03-13] MEDS: lamoTRIgine 100 MG TABLET. PO SCH ×2 (08:13→20:48)
[2021-03-13] MEDS: CHOLECALCIFEROL (VITAMIN D3) 1,000 UNIT TABLET PO SCH (08:13)
[2021-03-13] MEDS: SENNOSIDES 8.6 MG TABLET PO SCH ×2 (08:13→20:47)
[2021-03-13] MEDS: FAMOTIDINE 20 MG TABLET PO SCH ×2 (08:13→20:47)
[2021-03-13] MEDS: LISINOPRIL 2.5 MG TABLET PO SCH (08:13)
[2021-03-13] MEDS: clonazePAM 0.5 MG TABLET PO SCH ×2 (08:13→20:49)
[2021-03-13] MEDS: ACETAMINOPHEN 325 MG TABLET PO PRN (08:14)
[2021-03-13] MEDS: ASPIRIN CHEWABLE 81 MG TABLET. PO SCH (08:14)
--- NOTE | 2021-03-13 12:29 | PN ---
DATE: 03/12/2021 SUBJECTIVE: The patient was seen on rounds on evening of 03/12/2021. Discussed with ELIO Browning. Reviewed the chart. The patient slept 6-1/2 hours previous night. He remained somewhat anxious, obsessive, but generally better. REVIEW OF SYSTEMS: Ambulation impaired with walker consequent to his Parkinson's. No CV, , pulmonary, eye system symptoms on review. MENTAL STATUS EXAMINATION: Reasonably oriented. Speech is coherent. Abstraction fair. Computation impaired. Language function intact. Mood and affect is improved. Labs reviewed. ASSESSMENT: Major depressive disorder with psychotic features; anxiety disorder, unspecified. Rest unchanged. PLAN: Continue psychotropics from initial note including, BuSpar, Klonopin, Lexapro, Lamictal, Seroquel and he is also on Sinemet for the Parkinson's. ALMA DELIA/HAROON DR: Axel TID: [id number]
[2021-03-13 15:45] VITALS: BP 101/67
[2021-03-13] MEDS: ATORVASTATIN CALCIUM 20 MG TABLET PO SCH (20:47)
[2021-03-13] MEDS: QUEtiapine 100 MG TABLET. PO SCH (20:48)
--- NOTE | 2021-03-13 21:45 | PDOC ---
Exam Note: Kal Note: Please also refer to the separate dictated note~for this date of service dictated separately.~Patient seen individually. Discussed the patient with Nursing staff reviewed the chart.~Reviewed interim history and current functioning. Reviewed vital signs,~Labs/ Radiology~and current medications noted below. Continue current treatment with the changes noted in the dictated addendum note Assessment: Vital Signs/I&O: Vital Signs Date Time Temp Pulse Resp B/P (MAP) Pulse Ox O2 Delivery O2 Flow Rate FiO2 03/13/21 15:45 97.9 95 20 101/67 (78) 97 Room Air I & O 03/12/21 03/12/21 03/13/21 15:00 23:00 07:00 Intake Total 960 ml 600 ml Balance 960 ml 600 ml Labs: Laboratory Tests Test 03/13/21 07:36 Glucose (Fingerstick) 123 mg/dL (70-99) H Current Medications: Meds: Laboratory Tests Test 03/13/21 07:36 Glucose (Fingerstick) 123 mg/dL Current Medications Medications (Trade) Dose Ordered Sig/Kaley Route PRN Reason Start Time Stop Time Status Last Admin Dose Admin Acetaminophen (Tylenol) 650 mg PRN Q6HRS PRN PO MILD PAIN / TEMP > 100.3'F 03/07/21 20:30 03/13/21 08:14 Aspirin (Aspirin Chewable) 81 mg DAILY PO 03/08/21 09:00 03/13/21 08:14 Atorvastatin Calcium (Lipitor) 20 mg QHS PO 03/07/21 21:00 03/13/21 20:47 Buspirone HCl (Buspar) 20 mg TID PO 03/07/21 21:00 03/13/21 20:48 Carbidopa/Levodopa (Sinemet 25/100) 1 tab qid@08,10,13,16 PO 03/08/21 08:00 03/13/21 16:00 Carbidopa/Levodopa (Sinemet 25/100) 1 tab HS PO 03/07/21 21:00 03/13/21 20:48 Clonazepam (KlonoPIN) 0.5 mg BID PO 03/07/21 21:00 03/13/21 20:49 Famotidine (Pepcid) 20 mg BID PO 03/07/21 21:00 03/13/21 20:47 Folic Acid (Folic Acid) 1 mg DAILY PO 03/08/21 09:00 03/13/21 08:13 Lisinopril (Prinivil) 2.5 mg DAILY PO 03/08/21 09:00 03/13/21 08:13 Metformin HCl (Glucophage Xr) 1,000 mg DAILYWBKFT PO 03/08/21 08:00 03/13/21 08:12 Quetiapine Fumarate (SEROquel) 75 mg PRN BFRMEAL PRN PO ANXIETY / AGITATION 03/07/21 20:30 03/08/21 11:18 DC Sennosides (Senna) 8.6 mg BID PO 03/07/21 21:00 03/13/21 20:47 Vitamin D (Vitamin D3) 1,000 unit DAILY PO 03/08/21 09:00 03/13/21 08:13 Citalopram Hydrobromide (CeleXA) 20 mg DAILY PO 03/08/21 09:00 03/13/21 08:12 Lamotrigine (LaMICtal) 200 mg BID PO 03/07/21 21:00 03/13/21 20:48 Lubiprostone (Amitiza) 24 mcg BIDWMEALS PO 03/08/21 08:00 03/13/21 17:00 Al Hydroxide/Mg Hydroxide (Mylanta Plus Xs) 30 ml PRN Q4HRS PRN PO DYSPEPSIA 03/07/21 21:00 Magnesium Hydroxide (Milk Of Magnesia) 2,400 mg PRN QHS PRN PO 2ND CHOICE CONSTIPATION 03/07/21 21:00 03/08/21 17:27 Ondansetron HCl (Zofran Odt) 4 mg PRN Q12HR PRN PO NAUSEA/VOMITING 03/07/21 21:00 Polyethylene Glycol (miraLAX) 17 gm PRN DAILY PRN PO 1ST CHOICE CONSTIPATION 03/07/21 21:00 Quetiapine Fumarate (SEROquel) 300 mg HS PO 03/07/21 21:00 03/13/21 20:48 Quetiapine Fumarate (SEROquel) 75 mg TIDAC PO 03/08/21 11:30 03/13/21 16:17 I have reviewed the current psychotropics carefully including drug interactions. Risk benefit ratio favors no change other than as noted in my dictated progress note. Diagnosis: Problems: (1) Major depressive disorder with psychotic features (2) Anxiety disorder (3) Impulse control disorder LUTHER WARNER MD Mar 13, 2021 21:45
[2021-03-14 06:02] VITALS: BP 113/75
[2021-03-14] MEDS: ASPIRIN CHEWABLE 81 MG TABLET. PO SCH (08:50)
[2021-03-14] MEDS: QUEtiapine 25 MG TABLET. PO SCH ×3 (08:50→17:23)
[2021-03-14] MEDS: LUBIPROSTONE 24 MCG CAPSULE PO SCH ×2 (08:50→17:23)
[2021-03-14] MEDS: clonazePAM 0.5 MG TABLET PO SCH ×2 (08:51→21:08)
[2021-03-14] MEDS: SENNOSIDES 8.6 MG TABLET PO SCH ×2 (08:51→21:06)
[2021-03-14] MEDS: FOLIC ACID 1 MG TABLET PO SCH (08:51)
[2021-03-14] MEDS: lamoTRIgine 100 MG TABLET. PO SCH ×2 (08:51→21:07)
[2021-03-14] MEDS: LISINOPRIL 2.5 MG TABLET PO SCH (08:51)
[2021-03-14] MEDS: FAMOTIDINE 20 MG TABLET PO SCH ×2 (08:51→21:06)
[2021-03-14] MEDS: CITALOPRAM 20 MG TABLET. PO SCH (08:51)
[2021-03-14] MEDS: CARBIDOPA/LEVODOPA 25/100MG TABLET PO SCH ×5 (08:51→21:06)
[2021-03-14] MEDS: metFORMIN XR 500 MG TAB.ER.24H PO SCH (08:51)
[2021-03-14] MEDS: CHOLECALCIFEROL (VITAMIN D3) 1,000 UNIT TABLET PO SCH (08:51)
[2021-03-14] MEDS: busPIRone 10 MG TABLET. PO SCH ×3 (08:52→21:07)
[2021-03-14 15:44] VITALS: BP 106/73
[2021-03-14] MEDS: ACETAMINOPHEN 325 MG TABLET PO PRN (17:56)
[2021-03-14] MEDS: ATORVASTATIN CALCIUM 20 MG TABLET PO SCH (21:06)
[2021-03-14] MEDS: QUEtiapine 100 MG TABLET. PO SCH (21:07)
--- NOTE | 2021-03-14 21:30 | PDOC ---
Exam Note: Kal Note: Please also refer to the separate dictated note~for this date of service dictated separately.~Patient seen individually. Discussed the patient with Nursing staff reviewed the chart.~Reviewed interim history and current functioning. Reviewed vital signs,~Labs/ Radiology~and current medications noted below. Continue current treatment with the changes noted in the dictated addendum note Assessment: Vital Signs/I&O: Vital Signs Date Time Temp Pulse Resp B/P (MAP) Pulse Ox O2 Delivery O2 Flow Rate FiO2 03/14/21 15:44 97.5 92 16 106/73 (84) 97 03/13/21 15:45 Room Air I & O 03/13/21 03/13/21 03/14/21 15:00 23:00 07:00 Intake Total 240 ml 480 ml Balance 240 ml 480 ml Labs: Laboratory Tests Test 03/14/21 07:30 Glucose (Fingerstick) 127 mg/dL (70-99) H Current Medications: Meds: Laboratory Tests Test 03/14/21 07:30 Glucose (Fingerstick) 127 mg/dL Current Medications Medications (Trade) Dose Ordered Sig/Kaley Route PRN Reason Start Time Stop Time Status Last Admin Dose Admin Acetaminophen (Tylenol) 650 mg PRN Q6HRS PRN PO MILD PAIN / TEMP > 100.3'F 03/07/21 20:30 03/14/21 17:56 Aspirin (Aspirin Chewable) 81 mg DAILY PO 03/08/21 09:00 03/14/21 08:50 Atorvastatin Calcium (Lipitor) 20 mg QHS PO 03/07/21 21:00 03/14/21 21:06 Buspirone HCl (Buspar) 20 mg TID PO 03/07/21 21:00 03/14/21 21:07 Carbidopa/Levodopa (Sinemet 25/100) 1 tab qid@08,10,13,16 PO 03/08/21 08:00 03/14/21 17:23 Carbidopa/Levodopa (Sinemet 25/100) 1 tab HS PO 03/07/21 21:00 03/14/21 21:06 Clonazepam (KlonoPIN) 0.5 mg BID PO 03/07/21 21:00 03/14/21 21:08 Famotidine (Pepcid) 20 mg BID PO 03/07/21 21:00 03/14/21 21:06 Folic Acid (Folic Acid) 1 mg DAILY PO 03/08/21 09:00 03/14/21 08:51 Lisinopril (Prinivil) 2.5 mg DAILY PO 03/08/21 09:00 03/14/21 08:51 Metformin HCl (Glucophage Xr) 1,000 mg DAILYWBKFT PO 03/08/21 08:00 03/14/21 08:51 Quetiapine Fumarate (SEROquel) 75 mg PRN BFRMEAL PRN PO ANXIETY / AGITATION 03/07/21 20:30 03/08/21 11:18 DC Sennosides (Senna) 8.6 mg BID PO 03/07/21 21:00 03/14/21 21:06 Vitamin D (Vitamin D3) 1,000 unit DAILY PO 03/08/21 09:00 03/14/21 08:51 Citalopram Hydrobromide (CeleXA) 20 mg DAILY PO 03/08/21 09:00 03/14/21 08:51 Lamotrigine (LaMICtal) 200 mg BID PO 03/07/21 21:00 03/14/21 21:07 Lubiprostone (Amitiza) 24 mcg BIDWMEALS PO 03/08/21 08:00 03/14/21 17:23 Al Hydroxide/Mg Hydroxide (Mylanta Plus Xs) 30 ml PRN Q4HRS PRN PO DYSPEPSIA 03/07/21 21:00 Magnesium Hydroxide (Milk Of Magnesia) 2,400 mg PRN QHS PRN PO 2ND CHOICE CONSTIPATION 03/07/21 21:00 03/08/21 17:27 Ondansetron HCl (Zofran Odt) 4 mg PRN Q12HR PRN PO NAUSEA/VOMITING 03/07/21 21:00 Polyethylene Glycol (miraLAX) 17 gm PRN DAILY PRN PO 1ST CHOICE CONSTIPATION 03/07/21 21:00 Quetiapine Fumarate (SEROquel) 300 mg HS PO 03/07/21 21:00 03/14/21 21:07 Quetiapine Fumarate (SEROquel) 75 mg TIDAC PO 03/08/21 11:30 03/14/21 17:23 I have reviewed the current psychotropics carefully including drug interactions. Risk benefit ratio favors no change other than as noted in my dictated progress note. Diagnosis: Problems: (1) Major depressive disorder with psychotic features (2) Anxiety disorder (3) Impulse control disorder LUTHER WARNER MD Mar 14, 2021 21:30
[2021-03-15 06:02] VITALS: BP 99/61
[2021-03-15 06:47] LABS: BASO % 1 % (0-3); EOS # 0.2 x10^3/uL (0.0-0.7); EOS % 3 % (0-3); HEMATOCRIT 41.9 % (39.0-53.0); HEMOGLOBIN 14.2 g/dL (13.0-17.5); LYMPH # 2.5 x10^3/uL (1.0-4.8); LYMPH % 39 % (24-48); MEAN CORPUSCULAR HEMOGLOBIN 31 pg (25-35); MEAN CORPUSCULAR HGB CONC 34 g/dL (31-37); MEAN CORPUSCULAR VOLUME 92 fL (79-100); MONO # 0.5 x10^3/uL (0.0-1.1); MONO % 7 % (0-9); NEUT # 3.3 x10^3uL (1.8-7.7); NEUT % 51 % (31-73); PLATELET COUNT 205 x10^3/uL (140-400); RED BLOOD COUNT 4.54 x10^6/uL (4.30-5.70); RED CELL DISTRIBUTION WIDTH 13.5 % (11.5-14.5); WHITE BLOOD COUNT 6.5 x10^3/uL (4.0-11.0)
[2021-03-15 06:56] LABS: ALBUMIN 3.4 g/dL (3.4-5.0); ALBUMIN/GLOBULIN RATIO 1.1 (1.0-1.7); CALCIUM 8.7 mg/dL (8.5-10.1); CREATININE 0.7 mg/dL (0.7-1.3); POTASSIUM 3.7 mmol/L (3.5-5.1); TOTAL BILIRUBIN 0.4 mg/dL (0.2-1.0); TOTAL PROTEIN 6.4 g/dL (6.4-8.2)
[2021-03-15 08:14] VITALS: BP 99/61
[2021-03-15] MEDS: CITALOPRAM 20 MG TABLET. PO SCH (08:14)
[2021-03-15] MEDS: LISINOPRIL 2.5 MG TABLET PO SCH (08:14)
[2021-03-15] MEDS: clonazePAM 0.5 MG TABLET PO SCH (08:15)
[2021-03-15] MEDS: CHOLECALCIFEROL (VITAMIN D3) 1,000 UNIT TABLET PO SCH (08:15)
[2021-03-15] MEDS: lamoTRIgine 100 MG TABLET. PO SCH (08:15)
[2021-03-15] MEDS: metFORMIN XR 500 MG TAB.ER.24H PO SCH (08:15)
[2021-03-15] MEDS: SENNOSIDES 8.6 MG TABLET PO SCH (08:15)
[2021-03-15] MEDS: QUEtiapine 25 MG TABLET. PO SCH (08:15)
[2021-03-15] MEDS: LUBIPROSTONE 24 MCG CAPSULE PO SCH (08:15)
[2021-03-15] MEDS: ACETAMINOPHEN 325 MG TABLET PO PRN (08:15)
[2021-03-15] MEDS: ASPIRIN CHEWABLE 81 MG TABLET. PO SCH (08:15)
[2021-03-15] MEDS: FOLIC ACID 1 MG TABLET PO SCH (08:16)
[2021-03-15] MEDS: CARBIDOPA/LEVODOPA 25/100MG TABLET PO SCH ×2 (08:16→10:00)
[2021-03-15] MEDS: FAMOTIDINE 20 MG TABLET PO SCH (08:16)
[2021-03-15] MEDS: busPIRone 10 MG TABLET. PO SCH (08:16)
--- NOTE | 2021-03-15 22:54 | PDOC ---
Exam Note: Kal Note: Please also refer to the separate dictated note~for this date of service dictated separately.~Patient seen individually. Discussed the patient with Nursing staff reviewed the chart.~Reviewed interim history and current functioning. Reviewed vital signs,~Labs/ Radiology~and current medications noted below. Continue current treatment with the changes noted in the dictated addendum note Assessment: Vital Signs/I&O: Vital Signs Date Time Temp Pulse Resp B/P (MAP) Pulse Ox O2 Delivery O2 Flow Rate FiO2 03/15/21 08:14 78 99/61 03/15/21 06:02 97.8 16 94 03/13/21 15:45 Room Air I & O 03/14/21 03/14/21 03/15/21 15:00 23:00 07:00 Intake Total 720 ml 840 ml Balance 720 ml 840 ml Labs: Laboratory Tests Test 03/15/21 06:07 03/15/21 07:29 White Blood Count 6.5 x10^3/uL (4.0-11.0) Red Blood Count 4.54 x10^6/uL (4.30-5.70) Hemoglobin 14.2 g/dL (13.0-17.5) Hematocrit 41.9 % (39.0-53.0) Mean Corpuscular Volume 92 fL (79-100) Mean Corpuscular Hemoglobin 31 pg (25-35) Mean Corpuscular Hemoglobin Concent 34 g/dL (31-37) Red Cell Distribution Width 13.5 % (11.5-14.5) Platelet Count 205 x10^3/uL (140-400) Neutrophils (%) (Auto) 51 % (31-73) Lymphocytes (%) (Auto) 39 % (24-48) Monocytes (%) (Auto) 7 % (0-9) Eosinophils (%) (Auto) 3 % (0-3) Basophils (%) (Auto) 1 % (0-3) Neutrophils # (Auto) 3.3 x10^3uL (1.8-7.7) Lymphocytes # (Auto) 2.5 x10^3/uL (1.0-4.8) Monocytes # (Auto) 0.5 x10^3/uL (0.0-1.1) Eosinophils # (Auto) 0.2 x10^3/uL (0.0-0.7) Basophils # (Auto) 0.0 x10^3/uL (0.0-0.2) Sodium Level 143 mmol/L (136-145) Potassium Level 3.7 mmol/L (3.5-5.1) Chloride Level 107 mmol/L (98-107) Carbon Dioxide Level 29 mmol/L (21-32) Anion Gap 7 (6-14) Blood Urea Nitrogen 13 mg/dL (8-26) Creatinine 0.7 mg/dL (0.7-1.3) Estimated GFR (Cockcroft-Gault) 115.0 BUN/Creatinine Ratio 19 (6-20) Glucose Level 105 mg/dL (70-99) H Calcium Level 8.7 mg/dL (8.5-10.1) Total Bilirubin 0.4 mg/dL (0.2-1.0) Aspartate Amino Transferase (AST) 10 U/L (15-37) L Alanine Aminotransferase (ALT) 21 U/L (16-63) Alkaline Phosphatase 104 U/L (46-116) Total Protein 6.4 g/dL (6.4-8.2) Albumin 3.4 g/dL (3.4-5.0) Albumin/Globulin Ratio 1.1 (1.0-1.7) Glucose (Fingerstick) 110 mg/dL (70-99) H Current Medications: Meds: Laboratory Tests Test 03/15/21 06:07 03/15/21 07:29 White Blood Count 6.5 x10^3/uL Red Blood Count 4.54 x10^6/uL Hemoglobin 14.2 g/dL Hematocrit 41.9 % Mean Corpuscular Volume 92 fL Mean Corpuscular Hemoglobin 31 pg Mean Corpuscular Hemoglobin Concent 34 g/dL Red Cell Distribution Width 13.5 % Platelet Count 205 x10^3/uL Neutrophils (%) (Auto) 51 % Lymphocytes (%) (Auto) 39 % Monocytes (%) (Auto) 7 % Eosinophils (%) (Auto) 3 % Basophils (%) (Auto) 1 % Neutrophils # (Auto) 3.3 x10^3uL Lymphocytes # (Auto) 2.5 x10^3/uL Monocytes # (Auto) 0.5 x10^3/uL Eosinophils # (Auto) 0.2 x10^3/uL Basophils # (Auto) 0.0 x10^3/uL Sodium Level 143 mmol/L Potassium Level 3.7 mmol/L Chloride Level 107 mmol/L Carbon Dioxide Level 29 mmol/L Anion Gap 7 Blood Urea Nitrogen 13 mg/dL Creatinine 0.7 mg/dL Estimated GFR (Cockcroft-Gault) 115.0 BUN/Creatinine Ratio 19 Glucose Level 105 mg/dL Calcium Level 8.7 mg/dL Total Bilirubin 0.4 mg/dL Aspartate Amino Transf (AST/SGOT) 10 U/L Alanine Aminotransferase (ALT/SGPT) 21 U/L Alkaline Phosphatase 104 U/L Total Protein 6.4 g/dL Albumin 3.4 g/dL Albumin/Globulin Ratio 1.1 Glucose (Fingerstick) 110 mg/dL Current Medications Medications (Trade) Dose Ordered Sig/Kaley Route PRN Reason Start Time Stop Time Status Last Admin Dose Admin Acetaminophen (Tylenol) 650 mg PRN Q6HRS PRN PO MILD PAIN / TEMP > 100.3'F 03/07/21 20:30 03/15/21 10:44 DC 03/15/21 08:15 Aspirin (Aspirin Chewable) 81 mg DAILY PO 03/08/21 09:00 03/15/21 10:44 DC 03/15/21 08:15 Atorvastatin Calcium (Lipitor) 20 mg QHS PO 03/07/21 21:00 03/15/21 10:44 DC 03/14/21 21:06 Buspirone HCl (Buspar) 20 mg TID PO 03/07/21 21:00 03/15/21 10:44 DC 03/15/21 08:16 Carbidopa/Levodopa (Sinemet 25/100) 1 tab qid@08,10,13,16 PO 03/08/21 08:00 03/15/21 10:44 DC 03/15/21 10:00 Carbidopa/Levodopa (Sinemet 25/100) 1 tab HS PO 03/07/21 21:00 03/15/21 10:44 DC 03/14/21 21:06 Clonazepam (KlonoPIN) 0.5 mg BID PO 03/07/21 21:00 03/15/21 10:44 DC 03/15/21 08:15 Famotidine (Pepcid) 20 mg BID PO 03/07/21 21:00 03/15/21 10:44 DC 03/15/21 08:16 Folic Acid (Folic Acid) 1 mg DAILY PO 03/08/21 09:00 03/15/21 10:44 DC 03/15/21 08:16 Lisinopril (Prinivil) 2.5 mg DAILY PO 03/08/21 09:00 03/15/21 10:44 DC 03/15/21 08:14 Metformin HCl (Glucophage Xr) 1,000 mg DAILYWBKFT PO 03/08/21 08:00 03/15/21 10:44 DC 03/15/21 08:15 Quetiapine Fumarate (SEROquel) 75 mg PRN BFRMEAL PRN PO ANXIETY / AGITATION 03/07/21 20:30 03/08/21 11:18 DC Sennosides (Senna) 8.6 mg BID PO 03/07/21 21:00 03/15/21 10:44 DC 03/15/21 08:15 Vitamin D (Vitamin D3) 1,000 unit DAILY PO 03/08/21 09:00 03/15/21 10:44 DC 03/15/21 08:15 Citalopram Hydrobromide (CeleXA) 20 mg DAILY PO 03/08/21 09:00 03/15/21 10:44 DC 03/15/21 08:14 Lamotrigine (LaMICtal) 200 mg BID PO 03/07/21 21:00 03/15/21 10:44 DC 03/15/21 08:15 Lubiprostone (Amitiza) 24 mcg BIDWMEALS PO 03/08/21 08:00 03/15/21 10:44 DC 03/15/21 08:15 Al Hydroxide/Mg Hydroxide (Mylanta Plus Xs) 30 ml PRN Q4HRS PRN PO DYSPEPSIA 03/07/21 21:00 03/15/21 10:44 DC Magnesium Hydroxide (Milk Of Magnesia) 2,400 mg PRN QHS PRN PO 2ND CHOICE CONSTIPATION 03/07/21 21:00 03/15/21 10:44 DC 03/08/21 17:27 Ondansetron HCl (Zofran Odt) 4 mg PRN Q12HR PRN PO NAUSEA/VOMITING 03/07/21 21:00 03/15/21 10:44 DC Polyethylene Glycol (miraLAX) 17 gm PRN DAILY PRN PO 1ST CHOICE CONSTIPATION 03/07/21 21:00 03/15/21 10:44 DC Quetiapine Fumarate (SEROquel) 300 mg HS PO 03/07/21 21:00 03/15/21 10:44 DC 03/14/21 21:07 Quetiapine Fumarate (SEROquel) 75 mg TIDAC PO 03/08/21 11:30 03/15/21 10:44 DC 03/15/21 08:15 I have reviewed the current psychotropics carefully including drug interactions. Risk benefit ratio favors no change other than as noted in my dictated progress note. Diagnosis: Problems: (1) Major depressive disorder with psychotic features (2) Anxiety disorder (3) Impulse control disorder LUTHER WARNER MD Mar 15, 2021 22:54
--- NOTE | 2021-03-15 23:39 | PN ---
DATE: 03/14/2021 PSYCHIATRIC PROGRESS NOTE This late entry of 03/14/2021 covers the elements not covered in my initial note of 03/14. SUBJECTIVE: I met with the patient in his room. The patient slept 7 hours previous night. He has been quite appropriate on the unit. Discussed with ELIO Elena. Remains somewhat isolative in his room. REVIEW OF SYSTEMS: Some impairment of ambulation with walker. No CV, , pulmonary, eye, ENT system symptoms on review. MENTAL STATUS EXAMINATION: Reasonably oriented. Speech is coherent, has some latency. Abstraction fair. Computation impaired. Language function intact. Mood and affect is improved. No suicidal ideation. LABORATORY DATA: Reviewed. IMPRESSION: Unchanged from initial note. PLAN: No change from initial note. ALMA DELIA/EKT DR: Axel TID: [id number]
--- NOTE | 2021-03-15 23:40 | PN ---
DATE: 03/13/2021 PSYCHIATRY PROGRESS NOTE This late entry 03/13/2021 covers elements not covered in my initial note. SUBJECTIVE I met with the patient in his room evening of 03/13. The patient slept 7-1/2 hours previous night. Discussed with ELIO Elena. The patient had no hallucinations. Mood is better. Denies suicidal ideation. He had many questions that he listed out about his medications, discharge, aftercare plans, which we addressed. REVIEW OF SYSTEMS: Positive for his parkinsonian facial expression. No CV, , pulmonary, eye, ENT system symptoms on review. Reliability fair. MENTAL STATUS EXAMINATION: Reasonably oriented. Speech is coherent. Abstraction fair. Computation impaired. Language function intact. Mood and affect, less withdrawn. Labs reviewed. IMPRESSION: Major depressive disorder with psychotic features, in partial remission rest unchanged from initial note. PLAN: Continue psychotropics from initial note. Possible transition back to [facility] is on 03/16. MAGY DR: Axel TID: [id number]
--- NOTE | 2021-03-16 00:13 | DS ---
DATE OF DISCHARGE: 03/15/2021 DISCHARGE SUMMARY/PSYCHIATRIC PROGRESS NOTE REASON FOR ADMISSION: Please refer to the admission history for details. Briefly, the patient is a 61-year-old male referred to us from [facility] in [place], [place], on account of worsening symptoms of depression, suicidal ideation with no plan. He was reportedly having command hallucinations and increased anxiety. He was sent to the [facility] Emergency Room and then referred to us for inpatient psychiatric stabilization since he failed outpatient psychiatric interventions. Behavior is deemed dangerous and unmanageable at the facility. SIGNIFICANT FINDINGS AND CLINICAL COURSE: Following admission, the patient was seen daily individually by myself from a psychiatric standpoint, medical followup with Dr. Nugent/Dr. Toth. Initially, the patient was depressed and anxious, but he was very happy that he has been started on Klonopin 0.5 mg b.i.d. and Lexapro 10 mg a day at [facility] and felt his mood and anxiety were better with this. Psychotropics were adjusted, and he seemed to stabilize on a combination of BuSpar 20 mg t.i.d. He remained on Sinemet 25/100 at 0800, 1000, 1300, 1600, and 2100 for his Parkinson's disease. He is also on Klonopin 0.5 mg b.i.d., Lexapro 10 mg a day, lamotrigine 200 mg b.i.d., and Seroquel 75 mg t.i.d. and 300 mg at bedtime, prior to discharge on 03/15. REVIEW OF SYSTEMS: Ambulation impaired, parkinsonian facial expression. No CV, , pulmonary, eye, and ENT system symptoms on review. MENTAL STATUS EXAMINATION: The patient is oriented to himself and situation. Speech has some latency. Consequent Parkinson's but insight improved. Judgment intact to standard questioning. Mood and affect improved. Attention span fair. No suicidal ideation on discharge. CONDITION ON DISCHARGE: Improved. FINAL DIAGNOSES: Major depressive disorder, recurrent with psychotic features; anxiety disorder, unspecified; impulse control disorder, unspecified; Parkinson's disease. Rest unchanged from admission. DISCHARGE MEDICATIONS: Please refer to the MRAD. DISCHARGE INSTRUCTIONS: Outpatient psychiatric and medical followup at the shelter. Time for discharge day management greater than 30 minutes. ALMA DELIA/ELIESER/KEESHA DR: ALMA DELIA/parmjit TID: [id number]
== END 2021-03-15 10:43 | DRG 885 ==
LOC: GEROPSY 20:13
PROVIDERS: ADMIT Psychiatry & Neurology Psychiatry; ATTEND Psychiatry & Neurology Psychiatry
DX: F31.60 Bipolar disorder, current episode mixed, unspecified (principal); K51.90 Ulcerative colitis, unspecified, without complications; R45.851 Suicidal ideations; Z66 Do not resuscitate; E11.9 Type 2 diabetes mellitus without complications; Z20.822 Contact with and (suspected) exposure to COVID-19; E78.5 Hyperlipidemia, unspecified; F41.9 Anxiety disorder, unspecified; F63.9 Impulse disorder, unspecified; G20 Parkinson's disease; I10 Essential (primary) hypertension; G89.29 Other chronic pain; K21.9 Gastro-esophageal reflux disease without esophagitis; K59.09 Other constipation; M25.561 Pain in right knee; Z79.899 Other long term (current) drug therapy; Z82.5 Family history of asthma and other chronic lower respiratory diseases; Z83.3 Family history of diabetes mellitus; Z87.891 Personal history of nicotine dependence
CPT/HCPCS: 36415; 80053; 80061; 81001; 82306; 82607; 82947; 83036; 83540; 83550; 83735; 84436; 84443; 84480; 85025; 85379; 86592; 87086; 93005; U0003; 97530

== ENCOUNTER 2021-05-10 17:03 | Inpatient (IN) | payer BC, MEDICARE, OTHER ==
[~2021-05-10] VITALS: Ht 180.3 cm; Wt 86.9 kg
[~2021-05-10 17:03] MED LIST changes: +ACET325T21 PO; +ESCITALOPRAM OX10 MG PO; +ONDA4TAB7 PO; +POLY2500 PO; +SENN8.6T11 PO
--- NOTE | 2021-05-10 17:27 | NUR ---
Admission Note with Justification for Admission to [facility] Patient admitted to [facility] for protective oversight for emergency stabilization of acute psychiatric crisis. Pt admitted from: Hospital ER Mode of arrival: EMS Accompanied By: Secure Transport Precipitating behaviors that initiated intake and admission: Prelim admission note: Pt at [facility] X 4 days for SI HI, has had command hallucinations to kill staff and self with no plan no action. Pt needs placement in level 2 has failed at 0 facilities recently. Report from Chitra at [facility]. Description of failure of out patient attempts at stabilization in previous setting list behavior and medication trials: Med adjustments and therapy at [facility] different placements trials unsuccessful Behaviors and assessment findings upon admission: Calm and cooperative at [facility] X 4 days no behaviors. Has mild hallucinations no actions no plan. Plan: Admit for protective oversight for adjustment and stabilization of medications, behaviors and mood. Intense treatment regimen including groups, medication adjustments, therapy, consistent regimen for ADL's, self care, and sleep hygiene. Daily monitoring by Inpatient staff, Psychiatry, and Medical Physician.
[2021-05-10] MEDS ORDERED: LUBI24CA7 PO (17:42)
[2021-05-10] MEDS ORDERED: KRIL1CAP5 PO (17:42)
[2021-05-10] MEDS ORDERED: QUET100T4 PO (17:42)
[2021-05-10 19:31] VITALS: BP 111/75
[2021-05-10] MEDS ORDERED: CARBIDOPA/LEVODOPA 25/100MG TABLET PO SCH (21:00)
[2021-05-10] MEDS: QUEtiapine 100 MG TABLET. PO SCH (21:01)
[2021-05-10] MEDS: busPIRone 10 MG TABLET. PO SCH (21:01)
[2021-05-10] MEDS: CARBIDOPA/LEVODOPA 25/100MG TABLET PO SCH (21:02)
[2021-05-10] MEDS: clonazePAM 0.5 MG TABLET PO SCH (21:02)
[2021-05-10] MEDS: lamoTRIgine 100 MG TABLET. PO SCH (21:02)
--- NOTE | 2021-05-10 21:08 | PDOC ---
Exam Note: Kal Note: Please also refer to the separate dictated note~for this date of service dictated separately.~Patient seen individually. Discussed the patient with Nursing staff reviewed the chart.~Reviewed interim history and current functioning. Reviewed vital signs,~Labs/ Radiology~and current medications noted below. Continue current treatment with the changes noted in the dictated addendum note Assessment: Vital Signs/I&O: Vital Signs Date Time Temp Pulse Resp B/P (MAP) Pulse Ox O2 Delivery O2 Flow Rate FiO2 05/10/21 19:31 98.3 98 18 111/75 (87) 96 Current Medications: Meds: Current Medications Medications (Trade) Dose Ordered Sig/Kaley Route PRN Reason Start Time Stop Time Status Last Admin Dose Admin Buspirone HCl (Buspar) 20 mg TID PO 05/10/21 21:00 05/10/21 21:01 Clonazepam (KlonoPIN) 0.5 mg BID PO 05/10/21 21:00 05/10/21 21:02 Lamotrigine (LaMICtal) 200 mg BID PO 05/10/21 21:00 05/10/21 21:02 Quetiapine Fumarate (SEROquel) 300 mg HS PO 05/10/21 21:00 05/10/21 21:01 Carbidopa/Levodopa (Sinemet 25/100) 1 tab 0900,1600,2100 PO 05/10/21 21:00 05/10/21 21:02 I have reviewed the current psychotropics carefully including drug interactions. Risk benefit ratio favors no change other than as noted in my dictated progress note. Diagnosis: Problems: (1) Major depressive disorder with psychotic features (2) Anxiety disorder (3) Impulse control disorder (4) Psychotic disorder LUTHER WARNER MD May 10, 2021 21:08
--- NOTE | 2021-05-10 22:29 | HP ---
DATE OF SERVICE: 05/10/2021 ADMIT DATE: 05/10/2021 PSYCHIATRY ADMISSION HISTORY/EVALUATION IDENTIFYING DATA: The patient is a 61-year-old male referred back to us from [facility] by his primary care physician/psychiatrist on account of worsening command hallucinations to hurt himself and the staff members at the assisted. The patient has been depressed. Behaviors deemed dangerous to himself and others, has failed recent inpatient psychiatric hospitalization at the [facility] and a prior admission inpatient with us here as well as inpatient psychiatric admission at [facility] in the recent past. He is referred back for inpatient psychiatric stabilization. CHIEF COMPLAINT: "The voices tell me that I am Mike Ernandez. I cannot stop the voices. I need something to help stop him. The Seroquel helps me sleep, but the voices do not get better. I don't know what to do." HISTORY OF PRESENT ILLNESS: The patient has a diagnosis of major depressive disorder with psychotic features, in addition to psychotic disorder, unspecified, probably contributed by his Parkinson's with possible early Lewy body dementia and the fact that he is on Sinemet for the Parkinson's. He admits to the command hallucinations as above. Admits to feeling hopeless, helpless, worthless, depressed with some sleep and appetite changes. No active current suicidal or homicidal ideation at this time and when I interviewed him. I previously discussed the patient with Leah. Grape Pruner would obtain information from the assisted and also discussed with Mary Lou Miranda RN and this evening discussed the patient with ELIO Badillo as well. PAST PSYCHIATRIC HISTORY: As above including his multiple psychiatric inpatient hospitalizations. MEDICAL HISTORY: Positive for Parkinson's disease, diabetes mellitus, hypertension, GERD. ALLERGIES: CONTRAST DYE AND PREDNISONE. CODE STATUS: DNR. DIET: Regular. Accu-Cheks daily. Takes medications whole. Ambulates independently. CURRENT PSYCHOTROPICS: BuSpar 20 mg t.i.d., Klonopin 0.5 mg twice a day, Lexapro 20 mg a day, Lamictal 200 mg b.i.d., Seroquel 100 mg at 1400, 300 mg at bedtime and 50 mg a.m.; Sinemet 25/100 b.i.d. and 25/100 ER at bedtime. FAMILY HISTORY: Noncontributory. SOCIAL HISTORY: No history of alcohol, drug abuse, physical, sexual, elder abuse. He is not known to be a perpetrator. REACTION TO HOSPITALIZATION: The patient accepting of it. ASSETS: Supportive living at the assisted. REVIEW OF SYSTEMS: Positive for the command hallucinations. No CV, , pulmonary, eye, ENT system symptoms on review. MENTAL STATUS EXAM: The patient seen individually in the evening of __ in his room. He is alert, oriented, cooperative. Speech has some latency, low in rate and rhythm, low in volume, coherent. Mood and affect quite depressed. He is somewhat unkempt, admits to feeling hopeless, helpless. Denies active suicidal or homicidal ideation. Attention span somewhat distractable. LABORATORY DATA: Reviewed. IMPRESSION: Major depressive disorder with psychotic features. Psychotic disorder, unspecified. Rest as above. PLAN: Admit to Geropsychiatry Unit at [facility]. I will see the patient daily individually from a psychiatric standpoint. Medical followup, Dr. Nugent/Dr. Toth. Continue the patient on his current psychotropics. Obtain past psychiatric records from his recent inpatient hospitalization at [facility] and [facility]. Consider Risperdal or Clozaril for his psychotic symptoms in place of the Seroquel. We will make further decisions post-baseline assessment. ESTIMATED LENGTH OF STAY: 10-12 days. DISPOSITION PLANS: Back to assisted when stable. ERICA KANG: Axel TID: [id number]
[2021-05-11] MEDS ORDERED: METHYL SALICYLATE/MENTHOL TOPICAL OINTMENT 57GM TUBE. TP PRN (00:45)
[2021-05-11] MEDS ORDERED: MAGNESIUM HYDROXIDE 2,400 MG/30 ML ORAL.SUSP. PO PRN (00:45)
[2021-05-11] MEDS ORDERED: MAG HYDROX/AL HYDROX/SIMETH 30 ML ORAL.SUSP PO PRN ×2 (00:45→07:45)
[2021-05-11 06:01] VITALS: BP 104/69
--- NOTE | 2021-05-11 07:11 | NUR ---
Nursing Note The patient was located in his room for his assessment and medication pass. The patient took his medication whole. The patient was alert to name,date and location. The patient reports that he does have command hallucinations at times but did not at the time of this assessment. The patient reports that they are often "bad" voices. The patient denies si/hi. The patient remained withdrawn to his room this shift. Currently sleeping in his room.
[2021-05-11] MEDS ORDERED: NON FORMULARY ITEM (Magnesium Hydroxide (Milk Of Magnesia) 2,400 MG) PO PRN (07:15)
[2021-05-11] MEDS ORDERED: ACETAMINOPHEN 325 MG TABLET PO PRN (07:15)
[2021-05-11 07:45] LABS: BASO % 1 % (0-3); EOS # 0.2 x10^3/uL (0.0-0.7); EOS % 2 % (0-3); HEMATOCRIT 43.6 % (39.0-53.0); HEMOGLOBIN 14.9 g/dL (13.0-17.5); LYMPH % 29 % (24-48); MEAN CORPUSCULAR HEMOGLOBIN 32 pg (25-35); MEAN CORPUSCULAR HGB CONC 34 g/dL (31-37); MEAN CORPUSCULAR VOLUME 93 fL (79-100); MONO # 0.6 x10^3/uL (0.0-1.1); MONO % 8 % (0-9); NEUT # 4.1 x10^3uL (1.8-7.7); NEUT % 60 % (31-73); PLATELET COUNT 191 x10^3/uL (140-400); RED CELL DISTRIBUTION WIDTH 13.1 % (11.5-14.5); WHITE BLOOD COUNT 6.8 x10^3/uL (4.0-11.0)
[2021-05-11 07:56] LABS: ALBUMIN 3.7 g/dL (3.4-5.0); ALBUMIN/GLOBULIN RATIO 1.3 (1.0-1.7); CALCIUM 8.7 mg/dL (8.5-10.1); CREATININE 0.8 mg/dL (0.7-1.3); GFR 98.6; MAGNESIUM 2.3 mg/dL (1.8-2.4); POTASSIUM 3.6 mmol/L (3.5-5.1); TOTAL BILIRUBIN 0.3 mg/dL (0.2-1.0); TOTAL PROTEIN 6.6 g/dL (6.4-8.2)
[2021-05-11] MEDS ORDERED: ONDANSETRON ODT 4 MG TAB.RAPDIS PO PRN (08:00)
[2021-05-11] MEDS ORDERED: POLYETHYLENE GLYCOL 3350 17 GM PACKET. PO PRN (08:00)
[2021-05-11] MEDS ORDERED: NON FORMULARY ITEM (Linaclotide (Linzess) 145 MCG) PO SCH (09:00)
[2021-05-11] MEDS ORDERED: CARBIDOPA/LEVODOPA 25/100MG TABLET PO SCH (09:00)
[2021-05-11] MEDS: lamoTRIgine 100 MG TABLET. PO SCH ×2 (09:09→20:50)
[2021-05-11] MEDS: CARBIDOPA/LEVODOPA 25/100MG TABLET PO SCH ×3 (09:09→20:49)
[2021-05-11] MEDS: LISINOPRIL 2.5 MG TABLET PO SCH (09:10)
[2021-05-11] MEDS: FAMOTIDINE 20 MG TABLET PO SCH ×2 (09:10→20:50)
[2021-05-11] MEDS: ASPIRIN CHEWABLE 81 MG TABLET. PO SCH (09:10)
[2021-05-11] MEDS: FOLIC ACID 1 MG TABLET PO SCH (09:10)
[2021-05-11] MEDS: busPIRone 10 MG TABLET. PO SCH ×3 (09:10→20:50)
[2021-05-11] MEDS: SENNOSIDES 8.6 MG TABLET PO SCH ×2 (09:10→20:49)
[2021-05-11] MEDS: LUBIPROSTONE 24 MCG CAPSULE PO SCH ×2 (09:10→16:55)
[2021-05-11] MEDS: CITALOPRAM 20 MG TABLET. PO SCH (09:10)
[2021-05-11] MEDS: OMEGA-3 FATTY ACIDS/FISH OIL 1,000 MG CAPSULE. PO SCH (09:10)
[2021-05-11] MEDS: CHOLECALCIFEROL (VITAMIN D3) 1,000 UNIT TABLET PO SCH (09:10)
[2021-05-11] MEDS: QUEtiapine 50 MG TABLET. PO SCH (09:11)
[2021-05-11] MEDS: clonazePAM 0.5 MG TABLET PO SCH ×2 (09:11→20:50)
[2021-05-11] MEDS: ACETAMINOPHEN 325 MG TABLET PO PRN (09:16)
[2021-05-11 10:21] LABS: BACTERIA,URINE 0 /HPF (0-FEW); BILIRUBIN,URINE NEG (NEG); CLARITY,URINE HAZY; COLOR,URINE YELLOW; GLUCOSE,URINE NEG (NEG); NITRITE,URINE NEG (NEG); SQUAMOUS EPITHELIAL CELL,UR OCC /LPF; UROBILINOGEN,URINE 0.2 mg/dL (0.2 mg/dL)
[2021-05-11 10:22] LABS: AMORPHOUS SEDIMENT,UR PRESENT /HPF
--- NOTE | 2021-05-11 10:30 | NUR ---
Pt has BCBS insurance; BRANDAN completed the initial authorization through [employer]. Ermias Paz is out for the week so the provider relations representative will be Tiana Kingsley; her number is . Authorization number is [id number]. Authorization has covered four days from 05/10-05/14; although the is on a Sunday, Tiana has requested concurrent review to happen on Sunday.
[2021-05-11] MEDS: metFORMIN 500 MG TABLET PO SCH (10:57)
[2021-05-11] MEDS: QUEtiapine 100 MG TABLET. PO SCH ×2 (13:51→20:50)
--- NOTE | 2021-05-11 15:48 | NUR ---
Nursing note: Pt in hallway at time of AM med pass and assessment. He is pleasant, med compliant and cooperative. Pt has a flat affect, but denies SI. Pt does report hearing voices. When asked what the voices are telling him, he said something about "Satan". Pt was asked to repeat several times, but I was unable to determine what he was actually saying because he was speaking in a whisper and was unable to be understood. He has remained in his room for most of the shift, reading magazines and listening to [employer] music. Will continue to monitor.
[2021-05-11 16:02] VITALS: BP 103/68
[2021-05-11 19:41] LABS: THYROID STIM HORMONE (TSH) 1.919 uIU/mL (0.358-3.740)
[2021-05-11] MEDS: ATORVASTATIN CALCIUM 20 MG TABLET PO SCH (20:50)
--- NOTE | 2021-05-11 21:03 | PDOC ---
Exam Note: Kal Note: Please also refer to the separate dictated note~for this date of service dictated separately.~Patient seen individually. Discussed the patient with Nursing staff reviewed the chart.~Reviewed interim history and current functioning. Reviewed vital signs,~Labs/ Radiology~and current medications noted below. Continue current treatment with the changes noted in the dictated addendum note Assessment: Vital Signs/I&O: Vital Signs Date Time Temp Pulse Resp B/P (MAP) Pulse Ox O2 Delivery O2 Flow Rate FiO2 05/11/21 16:02 97.8 93 16 103/68 (80) 94 Room Air I & O 05/10/21 05/10/21 05/11/21 15:00 23:00 07:00 Intake Total 120 ml Balance 120 ml Labs: Laboratory Tests Test 05/11/21 06:27 05/11/21 07:35 White Blood Count 6.8 x10^3/uL (4.0-11.0) Red Blood Count 4.70 x10^6/uL (4.30-5.70) Hemoglobin 14.9 g/dL (13.0-17.5) Hematocrit 43.6 % (39.0-53.0) Mean Corpuscular Volume 93 fL (79-100) Mean Corpuscular Hemoglobin 32 pg (25-35) Mean Corpuscular Hemoglobin Concent 34 g/dL (31-37) Red Cell Distribution Width 13.1 % (11.5-14.5) Platelet Count 191 x10^3/uL (140-400) Neutrophils (%) (Auto) 60 % (31-73) Lymphocytes (%) (Auto) 29 % (24-48) Monocytes (%) (Auto) 8 % (0-9) Eosinophils (%) (Auto) 2 % (0-3) Basophils (%) (Auto) 1 % (0-3) Neutrophils # (Auto) 4.1 x10^3uL (1.8-7.7) Lymphocytes # (Auto) 2.0 x10^3/uL (1.0-4.8) Monocytes # (Auto) 0.6 x10^3/uL (0.0-1.1) Eosinophils # (Auto) 0.2 x10^3/uL (0.0-0.7) Basophils # (Auto) 0.0 x10^3/uL (0.0-0.2) D-Dimer (Marilee) < 0.19 mg/L (0.00-0.50) Sodium Level 145 mmol/L (136-145) Potassium Level 3.6 mmol/L (3.5-5.1) Chloride Level 106 mmol/L (98-107) Carbon Dioxide Level 28 mmol/L (21-32) Anion Gap 11 (6-14) Blood Urea Nitrogen 16 mg/dL (8-26) Creatinine 0.8 mg/dL (0.7-1.3) Estimated GFR (Cockcroft-Gault) 98.6 BUN/Creatinine Ratio 20 (6-20) Glucose Level 113 mg/dL (70-99) H Calcium Level 8.7 mg/dL (8.5-10.1) Magnesium Level 2.3 mg/dL (1.8-2.4) Iron Level 85 ug/dL (65-175) Total Iron Binding Capacity 300 ug/dL (250-450) Iron Saturation 28 % (15-34) Total Bilirubin 0.3 mg/dL (0.2-1.0) Aspartate Amino Transferase (AST) 10 U/L (15-37) L Alanine Aminotransferase (ALT) 15 U/L (16-63) L Alkaline Phosphatase 86 U/L (46-116) Total Protein 6.6 g/dL (6.4-8.2) Albumin 3.7 g/dL (3.4-5.0) Albumin/Globulin Ratio 1.3 (1.0-1.7) Triglycerides Level 93 mg/dL (0-150) Cholesterol Level 105 mg/dL (0-200) LDL Cholesterol, Calculated 39 mg/dL (0-100) VLDL Cholesterol, Calculated 18 mg/dL (0-40) Non-HDL Cholesterol Calculated 57 mg/dL (0-129) HDL Cholesterol 48 mg/dL (40-60) Cholesterol/HDL Ratio 2.0 Vitamin B12 Level 485 pg/mL (247-911) 25-Hydroxy Vitamin D Total > 111.0 ng/mL (30-100) H Thyroid Stimulating Hormone (TSH) 1.919 uIU/mL (0.358-3.740) Treponema pallidum Antibody Nonreactive (Nonreactive) Urine Collection Type Unknown Urine Color Yellow Urine Clarity Hazy Urine pH 6.5 Urine Specific Rillito 1.020 Urine Protein Neg (NEG-TRACE) Urine Glucose (UA) Neg mg/dL (NEG) Urine Ketones (Stick) Neg mg/dL (NEG) Urine Blood Neg (NEG) Urine Nitrite Neg (NEG) Urine Bilirubin Neg (NEG) Urine Urobilinogen Dipstick 0.2 mg/dL (0.2 mg/dL) Urine Leukocyte Esterase Neg (NEG) Urine RBC 3-5 /HPF (0-2) Urine WBC 5-10 /HPF (0-4) Urine Squamous Epithelial Cells Occ /LPF Urine Transitional Epithelial Cells Few /LPF Urine Amorphous Sediment Present /HPF Urine Bacteria 0 /HPF (0-FEW) Current Medications: Meds: Laboratory Tests Test 05/11/21 06:27 05/11/21 07:35 White Blood Count 6.8 x10^3/uL Red Blood Count 4.70 x10^6/uL Hemoglobin 14.9 g/dL Hematocrit 43.6 % Mean Corpuscular Volume 93 fL Mean Corpuscular Hemoglobin 32 pg Mean Corpuscular Hemoglobin Concent 34 g/dL Red Cell Distribution Width 13.1 % Platelet Count 191 x10^3/uL Neutrophils (%) (Auto) 60 % Lymphocytes (%) (Auto) 29 % Monocytes (%) (Auto) 8 % Eosinophils (%) (Auto) 2 % Basophils (%) (Auto) 1 % Neutrophils # (Auto) 4.1 x10^3uL Lymphocytes # (Auto) 2.0 x10^3/uL Monocytes # (Auto) 0.6 x10^3/uL Eosinophils # (Auto) 0.2 x10^3/uL Basophils # (Auto) 0.0 x10^3/uL D-Dimer (Marilee) < 0.19 mg/L Sodium Level 145 mmol/L Potassium Level 3.6 mmol/L Chloride Level 106 mmol/L Carbon Dioxide Level 28 mmol/L Anion Gap 11 Blood Urea Nitrogen 16 mg/dL Creatinine 0.8 mg/dL Estimated GFR (Cockcroft-Gault) 98.6 BUN/Creatinine Ratio 20 Glucose Level 113 mg/dL Calcium Level 8.7 mg/dL Magnesium Level 2.3 mg/dL Iron Level 85 ug/dL Total Iron Binding Capacity 300 ug/dL Iron Saturation 28 % Total Bilirubin 0.3 mg/dL Aspartate Amino Transf (AST/SGOT) 10 U/L Alanine Aminotransferase (ALT/SGPT) 15 U/L Alkaline Phosphatase 86 U/L Total Protein 6.6 g/dL Albumin 3.7 g/dL Albumin/Globulin Ratio 1.3 Triglycerides Level 93 mg/dL Cholesterol Level 105 mg/dL LDL Cholesterol, Calculated 39 mg/dL VLDL Cholesterol, Calculated 18 mg/dL Non-HDL Cholesterol Calculated 57 mg/dL HDL Cholesterol 48 mg/dL Cholesterol/HDL Ratio 2.0 Vitamin B12 Level 485 pg/mL 25-Hydroxy Vitamin D Total > 111.0 ng/mL Thyroid Stimulating Hormone (TSH) 1.919 uIU/mL Treponema pallidum Antibody Nonreactive Urine Collection Type Unknown Urine Color Yellow Urine Clarity Hazy Urine pH 6.5 Urine Specific Rillito 1.020 Urine Protein Neg Urine Glucose (UA) Neg mg/dL Urine Ketones (Stick) Neg mg/dL Urine Blood Neg Urine Nitrite Neg Urine Bilirubin Neg Urine Urobilinogen Dipstick 0.2 mg/dL Urine Leukocyte Esterase Neg Urine RBC 3-5 /HPF Urine WBC 5-10 /HPF Urine Squamous Epithelial Cells Occ /LPF Urine Transitional Epithelial Cells Few /LPF Urine Amorphous Sediment Present /HPF Urine Bacteria 0 /HPF Current Medications Medications (Trade) Dose Ordered Sig/Kaley Route PRN Reason Start Time Stop Time Status Last Admin Dose Admin Buspirone HCl (Buspar) 20 mg TID PO 05/10/21 21:00 05/11/21 20:50 Carbidopa/Levodopa (Sinemet 25/100) 1 tab BID94 PO 05/11/21 09:00 UNV Carbidopa/Levodopa (Sinemet 25/100) 1 tab HS PO 05/10/21 21:00 UNV Clonazepam (KlonoPIN) 0.5 mg BID PO 05/10/21 21:00 05/11/21 20:50 Quetiapine Fumarate (SEROquel) 50 mg DAILY PO 05/11/21 09:00 05/11/21 09:11 Quetiapine Fumarate (SEROquel) 100 mg DAILY@1400 PO 05/11/21 14:00 05/11/21 13:51 Citalopram Hydrobromide (CeleXA) 40 mg DAILY PO 05/11/21 09:00 05/11/21 09:10 Lamotrigine (LaMICtal) 200 mg BID PO 05/10/21 21:00 05/11/21 20:50 Quetiapine Fumarate (SEROquel) 300 mg HS PO 05/10/21 21:00 05/11/21 20:50 Carbidopa/Levodopa (Sinemet 25/100) 1 tab 0900,1600,2100 PO 05/10/21 21:00 05/11/21 20:49 Acetaminophen (Tylenol) 650 mg PRN Q6HRS PRN PO MILD PAIN / TEMP > 100.3'F 05/11/21 00:45 05/11/21 09:16 Multi-Ingredient Ointment (Analgesic [place]) 1 erum PRN QID PRN TP MUSCLE PAIN 05/11/21 00:45 Al Hydroxide/Mg Hydroxide (Mylanta Plus Xs) 15 ml PRN AFTMEALHC PRN PO DYSPEPSIA 05/11/21 00:45 05/11/21 07:45 DC Magnesium Hydroxide (Milk Of Magnesia) 2,400 mg PRN QHS PRN PO CONSTIPATION 05/11/21 00:45 Acetaminophen (Tylenol) 650 mg PRN Q6HRS PRN PO MILD PAIN / TEMP > 100.3'F 05/11/21 07:15 05/11/21 07:48 DC Aspirin (Aspirin Chewable) 81 mg DAILY PO 05/11/21 09:00 05/11/21 09:10 Atorvastatin Calcium (Lipitor) 20 mg QHS PO 05/11/21 21:00 05/11/21 20:50 Famotidine (Pepcid) 20 mg BID PO 05/11/21 09:00 05/11/21 20:50 Folic Acid (Folic Acid) 1 mg DAILY PO 05/11/21 09:00 05/11/21 09:10 Lisinopril (Prinivil) 2.5 mg DAILY PO 05/11/21 09:00 05/11/21 09:10 Lubiprostone (Amitiza) 24 mcg BID94 PO 05/11/21 09:00 05/11/21 16:55 Metformin HCl (Glucophage) 1,000 mg DAILYWBKFT PO 05/11/21 09:00 05/11/21 10:57 Sennosides (Senna) 8.6 mg BID PO 05/11/21 09:00 05/11/21 20:49 Vitamin D (Vitamin D3) 1,000 unit DAILY PO 05/11/21 09:00 05/11/21 09:10 Fish Oil (Fish Oil) 1,000 mg DAILY PO 05/11/21 09:00 05/11/21 09:10 Non-Formulary Medication (Linaclotide (Linzess)) 145 mcg DAILY PO 05/11/21 09:00 05/11/21 07:51 DC Al Hydroxide/Mg Hydroxide (Mylanta Plus Xs) 30 ml PRN Q4HRS PRN PO DYSPEPSIA 05/11/21 07:45 Non-Formulary Medication (Magnesium Hydroxide (Milk Of Magnesia)) 2,400 mg PRN QHS PRN PO CONSTIPATION 05/11/21 07:15 05/11/21 07:43 DC Ondansetron HCl (Zofran Odt) 4 mg PRN Q12HR PRN PO NAUSEA/VOMITING 05/11/21 08:00 Polyethylene Glycol (miraLAX) 17 gm PRN DAILY PRN PO CONSTIPATION 05/11/21 08:00 Current Medications Medications (Trade) Dose Ordered Sig/Kaley Route PRN Reason Start Time Stop Time Status Last Admin Dose Admin Quetiapine Fumarate (SEROquel) 50 mg DAILY PO 05/11/21 09:00 05/11/21 09:11 Quetiapine Fumarate (SEROquel) 100 mg DAILY@1400 PO 05/11/21 14:00 05/11/21 13:51 Citalopram Hydrobromide (CeleXA) 40 mg DAILY PO 05/11/21 09:00 05/11/21 09:10 Acetaminophen (Tylenol) 650 mg PRN Q6HRS PRN PO MILD PAIN / TEMP > 100.3'F 05/11/21 00:45 05/11/21 09:16 Aspirin (Aspirin Chewable) 81 mg DAILY PO 05/11/21 09:00 05/11/21 09:10 Atorvastatin Calcium (Lipitor) 20 mg QHS PO 05/11/21 21:00 05/11/21 20:50 Famotidine (Pepcid) 20 mg BID PO 05/11/21 09:00 05/11/21 20:50 Folic Acid (Folic Acid) 1 mg DAILY PO 05/11/21 09:00 05/11/21 09:10 Lisinopril (Prinivil) 2.5 mg DAILY PO 05/11/21 09:00 05/11/21 09:10 Lubiprostone (Amitiza) 24 mcg BID94 PO 05/11/21 09:00 05/11/21 16:55 Metformin HCl (Glucophage) 1,000 mg DAILYWBKFT PO 05/11/21 09:00 05/11/21 10:57 Sennosides (Senna) 8.6 mg BID PO 05/11/21 09:00 05/11/21 20:49 Vitamin D (Vitamin D3) 1,000 unit DAILY PO 05/11/21 09:00 05/11/21 09:10 Fish Oil (Fish Oil) 1,000 mg DAILY PO 05/11/21 09:00 05/11/21 09:10 I have reviewed the current psychotropics carefully including drug interactions. Risk benefit ratio favors no change other than as noted in my dictated progress note. Diagnosis: Problems: (1) Major depressive disorder with psychotic features (2) Psychotic disorder (3) Anxiety disorder (4) Impulse control disorder LUTHER WARNER MD May 11, 2021 21:03
--- NOTE | 2021-05-11 22:24 | EKG ---
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
--- NOTE | 2021-05-12 01:51 | NUR ---
Nursing Note The patient was located in his room for his assessment and medication pass. The patient was alert to name, date and location. The patient was compliant with his medication and took them whole. The patient was pleasant during interactions with this nurse. The patient continues to be very soft spoken and flat. The patient is currently sleeping in his room.
--- NOTE | 2021-05-12 01:57 | CONS ---
DATE OF CONSULTATION: 05/11/2021 REASON FOR CONSULTATION: Medical management. HISTORY OF PRESENT ILLNESS: The patient is a 61-year-old male patient who was residing at [facility], who was referred [facility] by his primary care physician, psychiatrist, on account of worsening command hallucinations to hurt himself and the staff members at the [facility]. The patient has been depressed. His behavior is deemed dangerous to himself and others. Currently, he has failed recent inpatient psychiatric stabilization at the [facility] and a prior admission to inpatient at this facility as well as another facility in [facility]. He is here for inpatient psychiatric stabilization. He stated that the voices are telling him that he is Mike Ernandez and he apparently stated that he cannot stop the voices. He needs something to help stop them. Seroquel helped him some, but the voices do not get better. PAST MEDICAL HISTORY: Significant for Parkinson's disease, type 2 diabetes mellitus, hypertension, gastroesophageal reflux disease. PAST PSYCHIATRIC HISTORY: Significant for major depressive disorder with psychotic features. Some of his psychotic features may be contributed to by his Parkinson's disease and the medication that he is on. PAST SURGICAL HISTORY: Significant for deep brain stimulator placement for Parkinson's disease. He also had right inguinal hernia repair and surgery on his right leg and ankle joint. ALLERGIES: HE IS ALLERGIC TO IODINATED CONTRAST MEDIA AND PREDNISOLONE. MEDICATIONS: He is currently on following medication: He is on atorvastatin calcium 20 mg at bedtime, lisinopril 2.5 mg once a day, aspirin 81 mg once a day, Tylenol 650 every 6 hours, clonazepam 0.5 mg twice a day, lamotrigine 200 mg twice a day, escitalopram oxalate 20 mg daily, quetiapine fumarate 300 mg at bedtime, quetiapine fumarate 50 mg daily and Seroquel 100 mg p.o. daily. He is on buspirone 20 mg 3 times a day, carbidopa/levodopa 25/100 mg at bedtime, carbidopa/levodopa 100/25 one tablet twice a day, Maalox 30 mL every 4 hours, Amitiza 24 mcg p.o. twice a day, magnesium hydroxide for milk of magnesia 30 mL p.o. daily p.r.n. for constipation, senna 1 tablet twice a day, ondansetron for Zofran 4 mg every 12 hours. He is on omega-3 fatty acid 1000 mg once a day, famotidine 20 mg twice a day, linaclotide for Linzess 290 mcg daily, metformin 1000 mg daily. He is on folic acid 1 mg once a day, cholecalciferol vitamin D 1000 units p.o. daily, polyethylene glycol 17 grams daily. FAMILY HISTORY: Noncontributory. SOCIAL HISTORY: He is apparently . Currently residing at [facility]. He does not smoke, drink alcohol or use recreational drugs. PHYSICAL EXAMINATION: GENERAL: When I examined him, he was sitting comfortably in his chair, in no apparent respiratory distress. There was no pallor, jaundice, cyanosis or thyromegaly. No jugular venous distention. No limb edema. VITAL SIGNS: His heart rate was 93, blood pressure was 103/68, temperature was 97.8, respiratory rate was 16 and oxygen saturation was 94%. HEAD, EYES, EARS, NOSE AND THROAT: Normocephalic, atraumatic. NECK: Supple. HEART: Showed normal first and second heart sounds. No gallop or murmur. CHEST: Clear to auscultation. No crepitation or rhonchi. ABDOMEN: Distended, soft, nontender. NEUROLOGIC: He is awake, alert, very slow monotonous speech. He has tremors mostly in the left upper extremity consistent with parkinsonian tremor. LABORATORY DATA: Showed a white cell count of 6800, hemoglobin 15, hematocrit 44, MCV 93 and platelet count of 191,000 with normal manual differential. His chemistry showed a serum sodium 145, potassium 3.6, chloride 106, bicarbonate 28, anion gap of 11, BUN 16, creatinine 0.8. Estimated GFR was 98 mL per minute. His glucose was 113, calcium was 8.7, magnesium was 2.3. Total bilirubin, AST, ALT, alkaline phosphatase were normal. Total protein 6.6, albumin 3.7. His D-dimer at this time 0.19 and his urinalysis essentially unremarkable. ASSESSMENT AND PLAN: In summary, this is a 61-year-old male patient, a resident at [facility], who was admitted on account of worsening command hallucination to hurt himself and the staff members at the [facility]. He apparently has had multiple inpatient psychiatric hospitalization at the [facility] and prior admission to this unit as well as psychiatric admission to [facility]. He is now back for inpatient psychiatric stabilization. He has multiple medical problems including Parkinson's disease, type 2 diabetes mellitus, hypertension, gastroesophageal reflux disease. Medically, he seemed to be stable. All his vital signs and his lab work are all within normal range. I am wondering whether some of his behaviors is the result of the antiparkinsonian medication and the Seroquel actually worsens his Parkinson's disease. I will consult Dr. Orona to see if anything can be done, to see if his Sinemet can be replaced with maybe Requip or some other antiparkinsonian medication. KATIE DR: Rad TID: [id number]
[2021-05-12 05:08] LABS: THYROXINE 4.4 ug/dL (4.5-12.0)
[2021-05-12 05:53] VITALS: BP 104/69
[2021-05-12 06:08] LABS: HEMOGLOBIN A1C 5.8 % (4.8-5.6)
[2021-05-12] MEDS: CARBIDOPA/LEVODOPA 25/100MG TABLET PO SCH ×3 (07:58→21:09)
[2021-05-12] MEDS: OMEGA-3 FATTY ACIDS/FISH OIL 1,000 MG CAPSULE. PO SCH (07:58)
[2021-05-12] MEDS: ACETAMINOPHEN 325 MG TABLET PO PRN (07:58)
[2021-05-12] MEDS: metFORMIN 500 MG TABLET PO SCH (07:58)
[2021-05-12] MEDS: FAMOTIDINE 20 MG TABLET PO SCH ×2 (07:59→21:09)
[2021-05-12] MEDS: ASPIRIN CHEWABLE 81 MG TABLET. PO SCH (07:59)
[2021-05-12] MEDS: QUEtiapine 50 MG TABLET. PO SCH (07:59)
[2021-05-12] MEDS: LISINOPRIL 2.5 MG TABLET PO SCH (07:59)
[2021-05-12] MEDS: busPIRone 10 MG TABLET. PO SCH ×3 (07:59→21:09)
[2021-05-12] MEDS: CHOLECALCIFEROL (VITAMIN D3) 1,000 UNIT TABLET PO SCH (08:00)
[2021-05-12] MEDS: clonazePAM 0.5 MG TABLET PO SCH ×2 (08:00→21:11)
[2021-05-12] MEDS: FOLIC ACID 1 MG TABLET PO SCH (08:00)
[2021-05-12] MEDS: lamoTRIgine 100 MG TABLET. PO SCH ×2 (08:00→21:10)
[2021-05-12] MEDS: LUBIPROSTONE 24 MCG CAPSULE PO SCH ×2 (08:00→16:17)
[2021-05-12] MEDS: CITALOPRAM 20 MG TABLET. PO SCH (08:00)
[2021-05-12] MEDS: SENNOSIDES 8.6 MG TABLET PO SCH ×2 (08:00→21:09)
--- NOTE | 2021-05-12 08:16 | PDOC ---
Exam Note: Kal Note: This note is a late entry for 05/11/2021 covers elements not covered in my initial note. Subjective: The patient was seen individually in the evening of 05/11/2021 with Teetee BALLARD, discussed and reviewed the chart. The patient slept 7-3/4 hours previous night. Overall he remains somewhat withdrawn. UA has reflex to culture. Dr. Orona has been consulted Neurology since the patients Sinemet could be contributing to his hallucinations. Discussed the patient with Dr. Nugent who was on the unit. Dr. Nugent suggested consideration of Nuplazid. We did contact the pharmacy again and this was not available here. Review of Systems: Ambulation impaired, in wheelchair. He complains of vague p ain and some chest tightness that he attributes to anxiety. No CV, , eye, ENT system symptoms on review. Mental Status Exam: The patient is reasonably oriented. Speech low in rate and rhythm, low in volume, still complains of hearing voices. Abstraction fair. Computation impaired. Language function intact. Mood and affect lability depressed, anxious. No suicidal ideation. Laboratory Data: Reviewed. Impression: Major depressive disorder, recurrent, rule out psychotic features. Anxiety disorder unspecified. Plan: Continue current psychotropics. Await consult Dr. Orona. Consider Clozaril as an atypical antipsychotic. Maintain Seroquel, Lexapro BuSpar. Adjust further as clinically indicated. Assessment: Vital Signs/I&O: Vital Signs Date Time Temp Pulse Resp B/P (MAP) Pulse Ox O2 Delivery O2 Flow Rate FiO2 05/12/21 07:59 82 104/69 05/12/21 05:53 97.8 16 95 05/11/21 16:02 Room Air I & O 05/11/21 05/11/21 05/12/21 15:00 23:00 07:00 Intake Total 840 ml 360 ml Balance 840 ml 360 ml Labs: Laboratory Tests Test 05/12/21 07:57 Glucose (Fingerstick) 123 mg/dL (70-99) H Current Medications: Meds: Laboratory Tests Test 05/12/21 07:57 Glucose (Fingerstick) 123 mg/dL Current Medications Medications (Trade) Dose Ordered Sig/Kaley Route PRN Reason Start Time Stop Time Status Last Admin Dose Admin Buspirone HCl (Buspar) 20 mg TID PO 05/10/21 21:00 05/12/21 07:59 Carbidopa/Levodopa (Sinemet 25/100) 1 tab BID94 PO 05/11/21 09:00 UNV Carbidopa/Levodopa (Sinemet 25/100) 1 tab HS PO 05/10/21 21:00 UNV Clonazepam (KlonoPIN) 0.5 mg BID PO 05/10/21 21:00 05/12/21 08:00 Quetiapine Fumarate (SEROquel) 50 mg DAILY PO 05/11/21 09:00 05/12/21 07:59 Quetiapine Fumarate (SEROquel) 100 mg DAILY@1400 PO 05/11/21 14:00 05/11/21 13:51 Citalopram Hydrobromide (CeleXA) 40 mg DAILY PO 05/11/21 09:00 05/12/21 08:00 Lamotrigine (LaMICtal) 200 mg BID PO 05/10/21 21:00 05/12/21 08:00 Quetiapine Fumarate (SEROquel) 300 mg HS PO 05/10/21 21:00 05/11/21 20:50 Carbidopa/Levodopa (Sinemet 25/100) 1 tab 0900,1600,2100 PO 05/10/21 21:00 05/12/21 07:58 Acetaminophen (Tylenol) 650 mg PRN Q6HRS PRN PO MILD PAIN / TEMP > 100.3'F 05/11/21 00:45 05/12/21 07:58 Multi-Ingredient Ointment (Analgesic [place]) 1 erum PRN QID PRN TP MUSCLE PAIN 05/11/21 00:45 Al Hydroxide/Mg Hydroxide (Mylanta Plus Xs) 15 ml PRN AFTMEALHC PRN PO DYSPEPSIA 05/11/21 00:45 05/11/21 07:45 DC Magnesium Hydroxide (Milk Of Magnesia) 2,400 mg PRN QHS PRN PO CONSTIPATION 05/11/21 00:45 Acetaminophen (Tylenol) 650 mg PRN Q6HRS PRN PO MILD PAIN / TEMP > 100.3'F 05/11/21 07:15 05/11/21 07:48 DC Aspirin (Aspirin Chewable) 81 mg DAILY PO 05/11/21 09:00 05/12/21 07:59 Atorvastatin Calcium (Lipitor) 20 mg QHS PO 05/11/21 21:00 05/11/21 20:50 Famotidine (Pepcid) 20 mg BID PO 05/11/21 09:00 05/12/21 07:59 Folic Acid (Folic Acid) 1 mg DAILY PO 05/11/21 09:00 05/12/21 08:00 Lisinopril (Prinivil) 2.5 mg DAILY PO 05/11/21 09:00 05/12/21 07:59 Lubiprostone (Amitiza) 24 mcg BID94 PO 05/11/21 09:00 05/12/21 08:00 Metformin HCl (Glucophage) 1,000 mg DAILYWBKFT PO 05/11/21 09:00 05/12/21 07:58 Sennosides (Senna) 8.6 mg BID PO 05/11/21 09:00 05/12/21 08:00 Vitamin D (Vitamin D3) 1,000 unit DAILY PO 05/11/21 09:00 05/12/21 08:00 Fish Oil (Fish Oil) 1,000 mg DAILY PO 05/11/21 09:00 05/12/21 07:58 Non-Formulary Medication (Linaclotide (Linzess)) 145 mcg DAILY PO 05/11/21 09:00 05/11/21 07:51 DC Al Hydroxide/Mg Hydroxide (Mylanta Plus Xs) 30 ml PRN Q4HRS PRN PO DYSPEPSIA 05/11/21 07:45 Non-Formulary Medication (Magnesium Hydroxide (Milk Of Magnesia)) 2,400 mg PRN QHS PRN PO CONSTIPATION 05/11/21 07:15 05/11/21 07:43 DC Ondansetron HCl (Zofran Odt) 4 mg PRN Q12HR PRN PO NAUSEA/VOMITING 05/11/21 08:00 Polyethylene Glycol (miraLAX) 17 gm PRN DAILY PRN PO CONSTIPATION 05/11/21 08:00 Current Medications Medications (Trade) Dose Ordered Sig/Kaley Route PRN Reason Start Time Stop Time Status Last Admin Dose Admin Quetiapine Fumarate (SEROquel) 50 mg DAILY PO 05/11/21 09:00 05/12/21 07:59 Quetiapine Fumarate (SEROquel) 100 mg DAILY@1400 PO 05/11/21 14:00 05/11/21 13:51 Citalopram Hydrobromide (CeleXA) 40 mg DAILY PO 05/11/21 09:00 05/12/21 08:00 Aspirin (Aspirin Chewable) 81 mg DAILY PO 05/11/21 09:00 05/12/21 07:59 Atorvastatin Calcium (Lipitor) 20 mg QHS PO 05/11/21 21:00 05/11/21 20:50 Famotidine (Pepcid) 20 mg BID PO 05/11/21 09:00 05/12/21 07:59 Folic Acid (Folic Acid) 1 mg DAILY PO 05/11/21 09:00 05/12/21 08:00 Lisinopril (Prinivil) 2.5 mg DAILY PO 05/11/21 09:00 05/12/21 07:59 Lubiprostone (Amitiza) 24 mcg BID94 PO 05/11/21 09:00 05/12/21 08:00 Metformin HCl (Glucophage) 1,000 mg DAILYWBKFT PO 05/11/21 09:00 05/12/21 07:58 Sennosides (Senna) 8.6 mg BID PO 05/11/21 09:00 05/12/21 08:00 Vitamin D (Vitamin D3) 1,000 unit DAILY PO 05/11/21 09:00 05/12/21 08:00 Fish Oil (Fish Oil) 1,000 mg DAILY PO 05/11/21 09:00 05/12/21 07:58 I have reviewed the current psychotropics carefully including drug interactions. Risk benefit ratio favors no change other than as noted in my dictated progress note. Diagnosis: Problems: (1) Major depressive disorder with psychotic features (2) Psychotic disorder (3) Anxiety disorder (4) Major depressive disorder, recurrent episode (5) Impulse control disorder LUTHER WARNER MD May 12, 2021 08:16
--- NOTE | 2021-05-12 11:33 | NUR ---
WEEKLY ACTIVITY THERAPY NOTE Date of Admission:05/10/21 Date of AT Assessment: TBD Precipitating behaviors that initiated intake and admission:[facility] days for SI HI, has had command hallucinations to kill staff and self with no plan no action. Pt needs placement in level 2 has failed at 0 facilities recently. Report from Chitra at [facility] Goal aimed: TBD Initial Goal: TBD Weekly progress towards goal: NA Group participation level: NA Weekly highlights: arrived on [facility] Behaviors observed: Plan: meet/assess pt Beneficial adaptations: TBD
[2021-05-12] MEDS: QUEtiapine 100 MG TABLET. PO SCH ×2 (13:48→21:10)
--- NOTE | 2021-05-12 14:44 | NUR ---
Treatment team update: Pt is eating 100% of meals and sleeping 7.5 hours per night. Pt is pleasant, calm and cooperative with all staff direction, cares and medications. Pt is withdrawn to himself and often sits in his room. He has a flat affect and remains that he is hearing voices that tell him to do things. As of this morning pt is denying SI or HI. The neurologist has been consulted due to pt Parkinson's medications and his hallucinations; however, the concern is the medication wished to have administered is on the pharmacy formulary. Nursing and SW will work towards finding out the facility pharmacy and see how much Nuplazid would cost and consider having that medication started on an outpt basis if possible. Pt insurance update is scheduled for tomorrow and SW will continue to aid pt placement in securing a Level II if possible.
--- NOTE | 2021-05-12 14:45 | NUR ---
Nursing note: Pt has been pleasant, med compliant and cooperative. He continues to be mostly withdrawn to his room, but does sit in the kevin for meals and snacks. He enjoys listening to [employer] music on the Melody. He c/o headache this AM, which was relieved with tylenol. He is currently sitting quietly in his room.
--- NOTE | 2021-05-12 15:25 | NUR ---
PSYCHOSOCIAL ASSESSMENT ADMISSION DATE: 05/10/21 CONTACT INFORMATION: DPOA/Guardian Contact Name: Pita Bray, Contact Address: [place] [address] Contact Phone #: [phone] ETHNIC ORIGIN: REASONS FOR ADMISSION: Hallucinations Homicidal Ideation Suicidal ideation ADDITIONAL ADMISSION COMMENTS: According to the intake, pt is depressed; SI/HI but no plans, constant thoughts to hurt self/others, command hallucinations REASON FOR ADMISSION IN PATIENT/FAMILY'S OWN WORDS: "I just don't know anymore, he is having a hard time and I'm stressed out". PATIENT/FAMILY EXPECTATIONS FOR ADMISSION: Behavioral and medication mgmt LIVING SITUATION: Patient lives with: Snf Other living arrangements: Contact Name: [facility] Contact Address: [facility]; [place] [id number] Contact Phone #: [phone] Contact Fax #: FAMILY RELATIONS: Marital Status: # of Marriages: 1 # of Children: 3 [facility] Family Support: Concerned Involved in DC Planning Additional Comments r/t Family: Pt has been to his Pita for 41 years (August 31). Pt met his through her brother; they attended separate schools, but worked together and introduced pt and Pita. Together they have three children: 2 boys and 1 girl who all live in [place], [place]. SIGNIFICANT PSYCHIATRIC/MEDICAL HISTORY: Psychiatric/Treatment History: Pt has a hx of depression and anxiety. Pt reports that he was in [facility], which is a level II facility. Pt then moved to [facility] and has been there for almost a year and a half. Pt also had stays in [facility], [facility], [facility], [facility], [facility]. Pertinent Family History: Pt reports that his sister had some mental health issues and his has depression and anxiety HISTORICAL DATA: Childhood Environment: [place] Supportive Childhood Environment Additional Comments: Pt reports that his family was loving but did not wish to elaborate more on his family dynamics. Trauma History: None Is Trauma: Additional Comments: None Drug Abuse History last 12 months: Past Use Comment: PERSONAL HISTORY: Vocational history: Pt worked on [employer] from 1979 until 1996; he then worked for an [employer] from 1996 until 2006 when he retired. service: N Adventism background: Bahai Sexual orientation: Heterosexual Educational Level: Graduated high school Past/Present Interests/Hobbies: unknown Financial support/resources: SS Disability Monthly income: Person handling finances: Pt handles finances Do you have a history of legal problems: N Cultural considerations: None SOCIAL RELATIONSHIPS-CURRENT/PAST: Psychiatrist: Dr. Zhu at [facility] PCP: Dr. Rob Quinones Counselor/Therapist: Ana Omer [facility]: None Support Group: None Artist Manager/Prepress Proofer: Josh @ [facility] Other relationships: other staff at [facility] STRENGTHS & WEAKNESSES: Patient's strengths: Good family support Ambulatory Approachable Other patient strengths: Patient's weaknesses: Lack of resources Impulsive Other patient weaknesses: Long mental health history PRELIMINARY PLAN OF TREATMENT: Preliminary plan: Dec. Hallucination/Delus Dec. Symp. Depression Improved Social Skills Medication Stabilization Other preliminary treatment comments: DISCHARGE PLANNING: Discharge planning/disposition: Other Placement Needed Additional discharge needs identified: Referrals for Level II have been submitted ADDITIONAL INFORMATION: Other Pertinent Data: PSA has been completed with information from previous psych stay. SW spoke with pt and also with the educational administrator, Ermias from [facility] [facility] [place]. They have submitted referrals to 9 different places and will plan to continue looking. In the event that pt cannot stay, they will take him back. Ermias expressed a lot of concern about all of the times pt has had to be sent out and would like to break the cycle. Josh, the SW from [employer], noted that a lot of this is pt personality as well. Josh reports that the pt has asked how to be admitted to a level II because he thinks pt wants to go back to one. No one in his outpt services will place a personality disorder on him, but is aware that it is there. [facility] will work with both parties on following up on pt placement, but all parties understand that pt will have to return to them once [facility] has decided to stop coverage.
[2021-05-12 15:51] VITALS: BP 118/79
--- NOTE | 2021-05-12 20:30 | NUR ---
Dr Orona came and assessed patient and he changed patients carbidopa to BID. Patient did not have tremors or rigidity per his assessment.
--- NOTE | 2021-05-12 21:08 | PDOC ---
Exam Note: Kal Note: Please also refer to the separate dictated note~for this date of service dictated separately.~Patient seen individually. Discussed the patient with Nursing staff reviewed the chart.~Reviewed interim history and current functioning. Reviewed vital signs,~Labs/ Radiology~and current medications noted below. Continue current treatment with the changes noted in the dictated addendum note Assessment: Vital Signs/I&O: Vital Signs Date Time Temp Pulse Resp B/P (MAP) Pulse Ox O2 Delivery O2 Flow Rate FiO2 05/12/21 15:51 98.2 101 18 118/79 (92) 94 Room Air I & O 05/11/21 05/11/21 05/12/21 15:00 23:00 07:00 Intake Total 840 ml 360 ml Balance 840 ml 360 ml Labs: Laboratory Tests Test 05/12/21 07:57 Glucose (Fingerstick) 123 mg/dL (70-99) H Current Medications: Meds: Laboratory Tests Test 05/12/21 07:57 Glucose (Fingerstick) 123 mg/dL Current Medications Medications (Trade) Dose Ordered Sig/Kaley Route PRN Reason Start Time Stop Time Status Last Admin Dose Admin Buspirone HCl (Buspar) 20 mg TID PO 05/10/21 21:00 05/12/21 13:48 Carbidopa/Levodopa (Sinemet 25/100) 1 tab BID94 PO 05/11/21 09:00 UNV Carbidopa/Levodopa (Sinemet 25/100) 1 tab HS PO 05/10/21 21:00 UNV Clonazepam (KlonoPIN) 0.5 mg BID PO 05/10/21 21:00 05/12/21 08:00 Quetiapine Fumarate (SEROquel) 50 mg DAILY PO 05/11/21 09:00 05/12/21 07:59 Quetiapine Fumarate (SEROquel) 100 mg DAILY@1400 PO 05/11/21 14:00 05/12/21 13:48 Citalopram Hydrobromide (CeleXA) 40 mg DAILY PO 05/11/21 09:00 05/12/21 08:00 Lamotrigine (LaMICtal) 200 mg BID PO 05/10/21 21:00 05/12/21 08:00 Quetiapine Fumarate (SEROquel) 300 mg HS PO 05/10/21 21:00 05/11/21 20:50 Carbidopa/Levodopa (Sinemet 25/100) 1 tab 0900,1600,2100 PO 05/10/21 21:00 05/12/21 20:30 DC 05/12/21 16:18 Acetaminophen (Tylenol) 650 mg PRN Q6HRS PRN PO MILD PAIN / TEMP > 100.3'F 05/11/21 00:45 05/12/21 07:58 Multi-Ingredient Ointment (Analgesic [place]) 1 erum PRN QID PRN TP MUSCLE PAIN 05/11/21 00:45 Al Hydroxide/Mg Hydroxide (Mylanta Plus Xs) 15 ml PRN AFTMEALHC PRN PO DYSPEPSIA 05/11/21 00:45 05/11/21 07:45 DC Magnesium Hydroxide (Milk Of Magnesia) 2,400 mg PRN QHS PRN PO CONSTIPATION 05/11/21 00:45 Acetaminophen (Tylenol) 650 mg PRN Q6HRS PRN PO MILD PAIN / TEMP > 100.3'F 05/11/21 07:15 05/11/21 07:48 DC Aspirin (Aspirin Chewable) 81 mg DAILY PO 05/11/21 09:00 05/12/21 07:59 Atorvastatin Calcium (Lipitor) 20 mg QHS PO 05/11/21 21:00 05/11/21 20:50 Famotidine (Pepcid) 20 mg BID PO 05/11/21 09:00 05/12/21 07:59 Folic Acid (Folic Acid) 1 mg DAILY PO 05/11/21 09:00 05/12/21 08:00 Lisinopril (Prinivil) 2.5 mg DAILY PO 05/11/21 09:00 05/12/21 07:59 Lubiprostone (Amitiza) 24 mcg BID94 PO 05/11/21 09:00 05/12/21 16:17 Metformin HCl (Glucophage) 1,000 mg DAILYWBKFT PO 05/11/21 09:00 05/12/21 07:58 Sennosides (Senna) 8.6 mg BID PO 05/11/21 09:00 05/12/21 08:00 Vitamin D (Vitamin D3) 1,000 unit DAILY PO 05/11/21 09:00 05/12/21 08:00 Fish Oil (Fish Oil) 1,000 mg DAILY PO 05/11/21 09:00 05/12/21 07:58 Non-Formulary Medication (Linaclotide (Linzess)) 145 mcg DAILY PO 05/11/21 09:00 05/11/21 07:51 DC Al Hydroxide/Mg Hydroxide (Mylanta Plus Xs) 30 ml PRN Q4HRS PRN PO DYSPEPSIA 05/11/21 07:45 Non-Formulary Medication (Magnesium Hydroxide (Milk Of Magnesia)) 2,400 mg PRN QHS PRN PO CONSTIPATION 05/11/21 07:15 05/11/21 07:43 DC Ondansetron HCl (Zofran Odt) 4 mg PRN Q12HR PRN PO NAUSEA/VOMITING 05/11/21 08:00 Polyethylene Glycol (miraLAX) 17 gm PRN DAILY PRN PO CONSTIPATION 05/11/21 08:00 Carbidopa/Levodopa (Sinemet 25/100) 1 tab BID PO 05/12/21 21:00 I have reviewed the current psychotropics carefully including drug interactions. Risk benefit ratio favors no change other than as noted in my dictated progress note. Diagnosis: Problems: (1) Major depressive disorder with psychotic features (2) Psychotic disorder (3) Anxiety disorder (4) Major depressive disorder, recurrent episode (5) Impulse control disorder LUTHER WARNER MD May 12, 2021 21:08
[2021-05-12] MEDS: ATORVASTATIN CALCIUM 20 MG TABLET PO SCH (21:09)
--- NOTE | 2021-05-13 01:22 | NUR ---
Patient sat in a chair in the hallway until he received his medications. Patient expressed interest in what medications he is taking and is aware of most of them. He stated that he can "hear the devil talking to him" but that the devil is not telling him to do anything. He also stated that he knows that it is a auditory hallucination. He requested that nurse write down the medications he is taking on a paper for him, nurse complied. Patient denies SI/HI when asked. He has blunted affect and appears depressed.
[2021-05-13 06:10] VITALS: BP 112/79
--- NOTE | 2021-05-13 06:58 | PDOC ---
Exam Note: Kal Note: This note is a late entry for 05/12/2021 covers elements not covered in my initial note. Subjective: The patient was reviewed at treatment team meeting individually in the morning on 05/12/2021 with Leah Zhu, Shandra Díaz, and Kailee Hines (protective services social worker), Yenifer Yusuf (Education And Training Coordinator), Sumi, activity therapy, and Teetee BALLARD, discussed and reviewed the chart. The patient slept 7- 1/2 hours previous night. Appetite is 100%. Patient continues to have some auditory hallucinations. We have consulted Dr. Orona and Sinemet has been reduced, which might help with some of his hallucinations as well. He remains obsessive, may need placement in level 2 facility. Review of Systems: Positive for auditory hallucinations. Ambulation impaired, in wheelchair. No CV, , eye, ENT system symptoms on review. Mental Status Exam: The patient is reasonably oriented. Speech coherent, low in rate and rhythm, low in volume. Abstraction fair. Computation impaired. Language function intact. Mood and affect somewhat withdrawn. No suicidal or homicidal ideation. Laboratory Data: Reviewed. Impression: Major depressive disorder, recurrent, rule out psychotic features. Anxiety disorder unspecified. Plan: Continue current psychotropics. Reduce the Sinemet as above. We are checking and seeing if Nuplazid might be available through his outpatient insurance company or we may consider Clozaril depending on how he does with the hallucinations with the change in Sinemet. Adjust further as clinically indicated. Assessment: Vital Signs/I&O: Vital Signs Date Time Temp Pulse Resp B/P (MAP) Pulse Ox O2 Delivery O2 Flow Rate FiO2 05/13/21 06:10 98.0 95 17 112/79 (90) 92 Room Air I & O 05/12/21 05/12/21 05/13/21 15:00 23:00 07:00 Intake Total 360 ml 600 ml Balance 360 ml 600 ml Labs: Laboratory Tests Test 05/12/21 07:57 Glucose (Fingerstick) 123 mg/dL (70-99) H Current Medications: Meds: Laboratory Tests Test 05/12/21 07:57 Glucose (Fingerstick) 123 mg/dL Current Medications Medications (Trade) Dose Ordered Sig/Kaley Route PRN Reason Start Time Stop Time Status Last Admin Dose Admin Buspirone HCl (Buspar) 20 mg TID PO 05/10/21 21:00 05/12/21 21:09 Carbidopa/Levodopa (Sinemet 25/100) 1 tab BID94 PO 05/11/21 09:00 UNV Carbidopa/Levodopa (Sinemet 25/100) 1 tab HS PO 05/10/21 21:00 UNV Clonazepam (KlonoPIN) 0.5 mg BID PO 05/10/21 21:00 05/12/21 21:11 Quetiapine Fumarate (SEROquel) 50 mg DAILY PO 05/11/21 09:00 05/12/21 07:59 Quetiapine Fumarate (SEROquel) 100 mg DAILY@1400 PO 05/11/21 14:00 05/12/21 13:48 Citalopram Hydrobromide (CeleXA) 40 mg DAILY PO 05/11/21 09:00 05/12/21 08:00 Lamotrigine (LaMICtal) 200 mg BID PO 05/10/21 21:00 05/12/21 21:10 Quetiapine Fumarate (SEROquel) 300 mg HS PO 05/10/21 21:00 05/12/21 21:10 Carbidopa/Levodopa (Sinemet 25/100) 1 tab 0900,1600,2100 PO 05/10/21 21:00 05/12/21 20:30 DC 05/12/21 16:18 Acetaminophen (Tylenol) 650 mg PRN Q6HRS PRN PO MILD PAIN / TEMP > 100.3'F 05/11/21 00:45 05/12/21 07:58 Multi-Ingredient Ointment (Analgesic [place]) 1 erum PRN QID PRN TP MUSCLE PAIN 05/11/21 00:45 Al Hydroxide/Mg Hydroxide (Mylanta Plus Xs) 15 ml PRN AFTMEALHC PRN PO DYSPEPSIA 05/11/21 00:45 05/11/21 07:45 DC Magnesium Hydroxide (Milk Of Magnesia) 2,400 mg PRN QHS PRN PO CONSTIPATION 05/11/21 00:45 Acetaminophen (Tylenol) 650 mg PRN Q6HRS PRN PO MILD PAIN / TEMP > 100.3'F 05/11/21 07:15 05/11/21 07:48 DC Aspirin (Aspirin Chewable) 81 mg DAILY PO 05/11/21 09:00 05/12/21 07:59 Atorvastatin Calcium (Lipitor) 20 mg QHS PO 05/11/21 21:00 05/12/21 21:09 Famotidine (Pepcid) 20 mg BID PO 05/11/21 09:00 05/12/21 21:09 Folic Acid (Folic Acid) 1 mg DAILY PO 05/11/21 09:00 05/12/21 08:00 Lisinopril (Prinivil) 2.5 mg DAILY PO 05/11/21 09:00 05/12/21 07:59 Lubiprostone (Amitiza) 24 mcg BID94 PO 05/11/21 09:00 05/12/21 16:17 Metformin HCl (Glucophage) 1,000 mg DAILYWBKFT PO 05/11/21 09:00 05/12/21 07:58 Sennosides (Senna) 8.6 mg BID PO 05/11/21 09:00 05/12/21 21:09 Vitamin D (Vitamin D3) 1,000 unit DAILY PO 05/11/21 09:00 05/12/21 08:00 Fish Oil (Fish Oil) 1,000 mg DAILY PO 05/11/21 09:00 05/12/21 07:58 Non-Formulary Medication (Linaclotide (Linzess)) 145 mcg DAILY PO 05/11/21 09:00 05/11/21 07:51 DC Al Hydroxide/Mg Hydroxide (Mylanta Plus Xs) 30 ml PRN Q4HRS PRN PO DYSPEPSIA 05/11/21 07:45 Non-Formulary Medication (Magnesium Hydroxide (Milk Of Magnesia)) 2,400 mg PRN QHS PRN PO CONSTIPATION 05/11/21 07:15 05/11/21 07:43 DC Ondansetron HCl (Zofran Odt) 4 mg PRN Q12HR PRN PO NAUSEA/VOMITING 05/11/21 08:00 Polyethylene Glycol (miraLAX) 17 gm PRN DAILY PRN PO CONSTIPATION 05/11/21 08:00 Carbidopa/Levodopa (Sinemet 25/100) 1 tab BID PO 05/12/21 21:00 05/12/21 21:09 Current Medications Medications (Trade) Dose Ordered Sig/Kaley Route PRN Reason Start Time Stop Time Status Last Admin Dose Admin Carbidopa/Levodopa (Sinemet 25/100) 1 tab BID PO 05/12/21 21:00 05/12/21 21:09 I have reviewed the current psychotropics carefully including drug interactions. Risk benefit ratio favors no change other than as noted in my dictated progress note. Diagnosis: Problems: (1) Major depressive disorder with psychotic features (2) Psychotic disorder (3) Anxiety disorder (4) Major depressive disorder, recurrent episode (5) Impulse control disorder LUTHER WARNER MD May 13, 2021 06:58
[2021-05-13] MEDS: OMEGA-3 FATTY ACIDS/FISH OIL 1,000 MG CAPSULE. PO SCH (08:32)
[2021-05-13] MEDS: busPIRone 10 MG TABLET. PO SCH ×3 (08:32→20:26)
[2021-05-13] MEDS: CHOLECALCIFEROL (VITAMIN D3) 1,000 UNIT TABLET PO SCH (08:32)
[2021-05-13] MEDS: SENNOSIDES 8.6 MG TABLET PO SCH ×2 (08:32→20:25)
[2021-05-13] MEDS: metFORMIN 500 MG TABLET PO SCH (08:32)
[2021-05-13] MEDS: FOLIC ACID 1 MG TABLET PO SCH (08:32)
[2021-05-13] MEDS: CARBIDOPA/LEVODOPA 25/100MG TABLET PO SCH ×2 (08:32→20:25)
[2021-05-13] MEDS: LUBIPROSTONE 24 MCG CAPSULE PO SCH ×2 (08:32→14:45)
[2021-05-13] MEDS: QUEtiapine 50 MG TABLET. PO SCH (08:32)
[2021-05-13] MEDS: ASPIRIN CHEWABLE 81 MG TABLET. PO SCH (08:33)
[2021-05-13] MEDS: LISINOPRIL 2.5 MG TABLET PO SCH (08:33)
[2021-05-13] MEDS: clonazePAM 0.5 MG TABLET PO SCH ×2 (08:33→20:26)
[2021-05-13] MEDS: FAMOTIDINE 20 MG TABLET PO SCH ×2 (08:33→20:26)
[2021-05-13] MEDS: lamoTRIgine 100 MG TABLET. PO SCH ×2 (08:33→20:27)
[2021-05-13] MEDS: CITALOPRAM 20 MG TABLET. PO SCH (08:33)
--- NOTE | 2021-05-13 09:19 | NUR ---
Pt present and visible on the unit. He is compliant with whole meds and receptive to education provided. Flat with blunt affect, he is appropriate in his interactions. Denies SI/HI/VH/AH/delusions/pain when asked. Plan of care continues, will pass to next shift.
--- NOTE | 2021-05-13 10:05 | NUR ---
ACTIVITY THERAPY ASSESSMENT completed based on notes, observation and interview. Pt was laying in his bed listening the [employer] music. Pt was agreeable to answer assessment questions and remained pleasant. Pt said that he enjoys volleyball, reading and listening to music. Pt was able to answer all orientation questions without error. Pt reports that his admission was due to experiencing homicidal ideations. He did not report any hallucinations during the time of assessment but said he experienced them when he first got to [facility]. Pt is ambulatory with a walker for assistance. Pt states that he is , has three children and has "somewhat" of contact with them. Pt said that he is stressed over placement after his discharge. He states that he normally luc with stress by reading to get his mind off of it. Per notes pt has been calm and cooperative with staff. Initial goal aimed to increase socialization and engagement. Pt will participate in at least five Activity Therapy groups per week. Addendum: 05/26/21 at 1225 by PINA BOURGEOIS ACT Goal changed 05/26:Pt will participate in all Activity Therapy sessions offered
[2021-05-13] MEDS: QUEtiapine 100 MG TABLET. PO SCH ×2 (14:45→20:25)
[2021-05-13 15:29] VITALS: BP 100/69
[2021-05-13] MEDS: ATORVASTATIN CALCIUM 20 MG TABLET PO SCH (20:25)
--- NOTE | 2021-05-13 21:09 | PDOC ---
Exam Note: Kal Note: Please also refer to the separate dictated note~for this date of service dictated separately.~Patient seen individually. Discussed the patient with Nursing staff reviewed the chart.~Reviewed interim history and current functioning. Reviewed vital signs,~Labs/ Radiology~and current medications noted below. Continue current treatment with the changes noted in the dictated addendum note Assessment: Vital Signs/I&O: Vital Signs Date Time Temp Pulse Resp B/P (MAP) Pulse Ox O2 Delivery O2 Flow Rate FiO2 05/13/21 15:29 98.1 87 16 100/69 (79) 95 05/13/21 06:10 Room Air I & O 05/12/21 05/12/21 05/13/21 15:00 23:00 07:00 Intake Total 360 ml 600 ml Balance 360 ml 600 ml Labs: Laboratory Tests Test 05/13/21 08:07 Glucose (Fingerstick) 114 mg/dL (70-99) H Current Medications: Meds: Laboratory Tests Test 05/13/21 08:07 Glucose (Fingerstick) 114 mg/dL Current Medications Medications (Trade) Dose Ordered Sig/Kaley Route PRN Reason Start Time Stop Time Status Last Admin Dose Admin Buspirone HCl (Buspar) 20 mg TID PO 05/10/21 21:00 05/13/21 20:26 Carbidopa/Levodopa (Sinemet 25/100) 1 tab BID94 PO 05/11/21 09:00 UNV Carbidopa/Levodopa (Sinemet 25/100) 1 tab HS PO 05/10/21 21:00 UNV Clonazepam (KlonoPIN) 0.5 mg BID PO 05/10/21 21:00 05/13/21 20:26 Quetiapine Fumarate (SEROquel) 50 mg DAILY PO 05/11/21 09:00 05/13/21 08:32 Quetiapine Fumarate (SEROquel) 100 mg DAILY@1400 PO 05/11/21 14:00 05/13/21 14:45 Citalopram Hydrobromide (CeleXA) 40 mg DAILY PO 05/11/21 09:00 05/13/21 08:33 Lamotrigine (LaMICtal) 200 mg BID PO 05/10/21 21:00 05/13/21 20:27 Quetiapine Fumarate (SEROquel) 300 mg HS PO 05/10/21 21:00 05/13/21 20:25 Carbidopa/Levodopa (Sinemet 25/100) 1 tab 0900,1600,2100 PO 05/10/21 21:00 05/12/21 20:30 DC 05/12/21 16:18 Acetaminophen (Tylenol) 650 mg PRN Q6HRS PRN PO MILD PAIN / TEMP > 100.3'F 05/11/21 00:45 05/12/21 07:58 Multi-Ingredient Ointment (Analgesic [place]) 1 erum PRN QID PRN TP MUSCLE PAIN 05/11/21 00:45 Al Hydroxide/Mg Hydroxide (Mylanta Plus Xs) 15 ml PRN AFTMEALHC PRN PO DYSPEPSIA 05/11/21 00:45 05/11/21 07:45 DC Magnesium Hydroxide (Milk Of Magnesia) 2,400 mg PRN QHS PRN PO CONSTIPATION 05/11/21 00:45 Acetaminophen (Tylenol) 650 mg PRN Q6HRS PRN PO MILD PAIN / TEMP > 100.3'F 05/11/21 07:15 05/11/21 07:48 DC Aspirin (Aspirin Chewable) 81 mg DAILY PO 05/11/21 09:00 05/13/21 08:33 Atorvastatin Calcium (Lipitor) 20 mg QHS PO 05/11/21 21:00 05/13/21 20:25 Famotidine (Pepcid) 20 mg BID PO 05/11/21 09:00 05/13/21 20:26 Folic Acid (Folic Acid) 1 mg DAILY PO 05/11/21 09:00 05/13/21 08:32 Lisinopril (Prinivil) 2.5 mg DAILY PO 05/11/21 09:00 05/13/21 08:33 Lubiprostone (Amitiza) 24 mcg BID94 PO 05/11/21 09:00 05/13/21 14:45 Metformin HCl (Glucophage) 1,000 mg DAILYWBKFT PO 05/11/21 09:00 05/13/21 08:32 Sennosides (Senna) 8.6 mg BID PO 05/11/21 09:00 05/13/21 20:25 Vitamin D (Vitamin D3) 1,000 unit DAILY PO 05/11/21 09:00 05/13/21 08:32 Fish Oil (Fish Oil) 1,000 mg DAILY PO 05/11/21 09:00 05/13/21 08:32 Non-Formulary Medication (Linaclotide (Linzess)) 145 mcg DAILY PO 05/11/21 09:00 05/11/21 07:51 DC Al Hydroxide/Mg Hydroxide (Mylanta Plus Xs) 30 ml PRN Q4HRS PRN PO DYSPEPSIA 05/11/21 07:45 Non-Formulary Medication (Magnesium Hydroxide (Milk Of Magnesia)) 2,400 mg PRN QHS PRN PO CONSTIPATION 05/11/21 07:15 05/11/21 07:43 DC Ondansetron HCl (Zofran Odt) 4 mg PRN Q12HR PRN PO NAUSEA/VOMITING 05/11/21 08:00 Polyethylene Glycol (miraLAX) 17 gm PRN DAILY PRN PO CONSTIPATION 05/11/21 08:00 Carbidopa/Levodopa (Sinemet 25/100) 1 tab BID PO 05/12/21 21:00 05/13/21 20:25 I have reviewed the current psychotropics carefully including drug interactions. Risk benefit ratio favors no change other than as noted in my dictated progress note. Diagnosis: Problems: (1) Major depressive disorder with psychotic features (2) Psychotic disorder (3) Anxiety disorder (4) Major depressive disorder, recurrent episode (5) Impulse control disorder LUTHER WARNER MD May 13, 2021 21:09
--- NOTE | 2021-05-13 22:30 | NUR ---
Patient is located in the hallway on assumption of care, sitting outside his room listening to the kaylie and reading a magazine. He presents with a flat affect and speaks very softly. He denies any current thoughts of SI/HI. Denies any hallucinations so far this shift. When asked how he is doing today, he states "So-so I guess." He returned to his room as soon as he received his medications and has been there since. He appears to be sleeping comfortably at present time. Will continue to monitor.
[2021-05-14 06:05] VITALS: BP 102/65
--- NOTE | 2021-05-14 08:00 | PDOC ---
Exam Note: Kal Note: This note is a late entry for 05/13/2021 covers elements not covered in my initial note. Subjective: The patient was seen individually in the evening of 05/13/2021 with Jose BALLARD, discussed and reviewed the chart. The patient slept 7 hours previous night. He has been compliant with his medications. Dr. Orona has reduced his Sinemet from 3 times a day to twice a day due to minimal Parkinsons symptoms and in an attempt to lower the propensity for Sinemet to be exacerbating his hallucinations. In fact today he denies suicidal ideation. Denies hearing any voices. Review of Systems: Positive for some of the Parkinson symptoms. No CV, , eye, ENT system symptoms on review. Mental Status Exam: The patient is reasonably oriented. Speech coherent, has some latency, low in rate and rhythm, low in volume. Abstraction fair. Computation impaired. Language function intact. Mood and affect somewhat withdrawn but pleasant, cooperative. Laboratory Data: Reviewed. Impression: Major depressive disorder, recurrent, rule out psychotic features. Anxiety disorder unspecified. Plan: Continue current psychotropics. If psychotic symptoms resurface despite reduction in Sinemet, we may consider changing Seroquel to Clozaril. Assessment: Vital Signs/I&O: Vital Signs Date Time Temp Pulse Resp B/P (MAP) Pulse Ox O2 Delivery O2 Flow Rate FiO2 05/14/21 06:05 97.7 75 14 102/65 (77) 94 Room Air I & O 05/13/21 05/13/21 05/14/21 15:00 23:00 07:00 Intake Total 600 ml 240 ml 120 ml Balance 600 ml 240 ml 120 ml Labs: Laboratory Tests Test 05/13/21 08:07 05/14/21 07:10 Glucose (Fingerstick) 114 mg/dL (70-99) H 95 mg/dL (70-99) Current Medications: Meds: Laboratory Tests Test 05/13/21 08:07 05/14/21 07:10 Glucose (Fingerstick) 114 mg/dL 95 mg/dL Current Medications Medications (Trade) Dose Ordered Sig/Kaley Route PRN Reason Start Time Stop Time Status Last Admin Dose Admin Buspirone HCl (Buspar) 20 mg TID PO 05/10/21 21:00 05/13/21 20:26 Carbidopa/Levodopa (Sinemet 25/100) 1 tab BID94 PO 05/11/21 09:00 UNV Carbidopa/Levodopa (Sinemet 25/100) 1 tab HS PO 05/10/21 21:00 UNV Clonazepam (KlonoPIN) 0.5 mg BID PO 05/10/21 21:00 05/13/21 20:26 Quetiapine Fumarate (SEROquel) 50 mg DAILY PO 05/11/21 09:00 05/13/21 08:32 Quetiapine Fumarate (SEROquel) 100 mg DAILY@1400 PO 05/11/21 14:00 05/13/21 14:45 Citalopram Hydrobromide (CeleXA) 40 mg DAILY PO 05/11/21 09:00 05/13/21 08:33 Lamotrigine (LaMICtal) 200 mg BID PO 05/10/21 21:00 05/13/21 20:27 Quetiapine Fumarate (SEROquel) 300 mg HS PO 05/10/21 21:00 05/13/21 20:25 Carbidopa/Levodopa (Sinemet 25/100) 1 tab 0900,1600,2100 PO 05/10/21 21:00 05/12/21 20:30 DC 05/12/21 16:18 Acetaminophen (Tylenol) 650 mg PRN Q6HRS PRN PO MILD PAIN / TEMP > 100.3'F 05/11/21 00:45 05/12/21 07:58 Multi-Ingredient Ointment (Analgesic [place]) 1 erum PRN QID PRN TP MUSCLE PAIN 05/11/21 00:45 Al Hydroxide/Mg Hydroxide (Mylanta Plus Xs) 15 ml PRN AFTMEALHC PRN PO DYSPEPSIA 05/11/21 00:45 05/11/21 07:45 DC Magnesium Hydroxide (Milk Of Magnesia) 2,400 mg PRN QHS PRN PO CONSTIPATION 05/11/21 00:45 Acetaminophen (Tylenol) 650 mg PRN Q6HRS PRN PO MILD PAIN / TEMP > 100.3'F 05/11/21 07:15 05/11/21 07:48 DC Aspirin (Aspirin Chewable) 81 mg DAILY PO 05/11/21 09:00 05/13/21 08:33 Atorvastatin Calcium (Lipitor) 20 mg QHS PO 05/11/21 21:00 05/13/21 20:25 Famotidine (Pepcid) 20 mg BID PO 05/11/21 09:00 05/13/21 20:26 Folic Acid (Folic Acid) 1 mg DAILY PO 05/11/21 09:00 05/13/21 08:32 Lisinopril (Prinivil) 2.5 mg DAILY PO 05/11/21 09:00 05/13/21 08:33 Lubiprostone (Amitiza) 24 mcg BID94 PO 05/11/21 09:00 05/13/21 14:45 Metformin HCl (Glucophage) 1,000 mg DAILYWBKFT PO 05/11/21 09:00 05/13/21 08:32 Sennosides (Senna) 8.6 mg BID PO 05/11/21 09:00 05/13/21 20:25 Vitamin D (Vitamin D3) 1,000 unit DAILY PO 05/11/21 09:00 05/13/21 08:32 Fish Oil (Fish Oil) 1,000 mg DAILY PO 05/11/21 09:00 05/13/21 08:32 Non-Formulary Medication (Linaclotide (Linzess)) 145 mcg DAILY PO 05/11/21 09:00 05/11/21 07:51 DC Al Hydroxide/Mg Hydroxide (Mylanta Plus Xs) 30 ml PRN Q4HRS PRN PO DYSPEPSIA 05/11/21 07:45 Non-Formulary Medication (Magnesium Hydroxide (Milk Of Magnesia)) 2,400 mg PRN QHS PRN PO CONSTIPATION 05/11/21 07:15 05/11/21 07:43 DC Ondansetron HCl (Zofran Odt) 4 mg PRN Q12HR PRN PO NAUSEA/VOMITING 05/11/21 08:00 Polyethylene Glycol (miraLAX) 17 gm PRN DAILY PRN PO CONSTIPATION 05/11/21 08:00 Carbidopa/Levodopa (Sinemet 25/100) 1 tab BID PO 05/12/21 21:00 05/13/21 20:25 I have reviewed the current psychotropics carefully including drug interactions. Risk benefit ratio favors no change other than as noted in my dictated progress note. Diagnosis: Problems: (1) Major depressive disorder with psychotic features (2) Psychotic disorder (3) Anxiety disorder (4) Major depressive disorder, recurrent episode (5) Impulse control disorder LUTHER WARNER MD May 14, 2021 08:00
[2021-05-14] MEDS: CARBIDOPA/LEVODOPA 25/100MG TABLET PO SCH ×2 (08:46→20:29)
[2021-05-14] MEDS: SENNOSIDES 8.6 MG TABLET PO SCH ×2 (08:46→20:30)
[2021-05-14] MEDS: CHOLECALCIFEROL (VITAMIN D3) 1,000 UNIT TABLET PO SCH (08:46)
[2021-05-14] MEDS: CITALOPRAM 20 MG TABLET. PO SCH (08:46)
[2021-05-14] MEDS: QUEtiapine 50 MG TABLET. PO SCH (08:46)
[2021-05-14] MEDS: FAMOTIDINE 20 MG TABLET PO SCH ×2 (08:46→20:30)
[2021-05-14] MEDS: ASPIRIN CHEWABLE 81 MG TABLET. PO SCH (08:46)
[2021-05-14] MEDS: metFORMIN 500 MG TABLET PO SCH (08:47)
[2021-05-14] MEDS: LUBIPROSTONE 24 MCG CAPSULE PO SCH ×2 (08:47→16:00)
[2021-05-14] MEDS: FOLIC ACID 1 MG TABLET PO SCH (08:47)
[2021-05-14] MEDS: OMEGA-3 FATTY ACIDS/FISH OIL 1,000 MG CAPSULE. PO SCH (08:47)
[2021-05-14] MEDS: busPIRone 10 MG TABLET. PO SCH ×3 (08:47→20:29)
[2021-05-14] MEDS: lamoTRIgine 100 MG TABLET. PO SCH ×2 (08:47→20:29)
[2021-05-14] MEDS: LISINOPRIL 2.5 MG TABLET PO SCH (08:48)
[2021-05-14] MEDS: clonazePAM 0.5 MG TABLET PO SCH ×2 (08:50→20:30)
[2021-05-14] MEDS: QUEtiapine 100 MG TABLET. PO SCH ×2 (14:00→20:31)
[2021-05-14 15:14] VITALS: BP 120/70
--- NOTE | 2021-05-14 18:25 | NUR ---
Pt up in [place] for meals. Quiet withdrawn to room rest of time. Compliant with meds and cares. Stated to Dr Ortega he still has intermittent auditory hallucinations.
[2021-05-14] MEDS: ATORVASTATIN CALCIUM 20 MG TABLET PO SCH (20:30)
--- NOTE | 2021-05-14 21:00 | NUR ---
Patient is located in his room on assumption of care, listening to the kaylie and reading a magazine. He presents with a flat affect and speaks very softly. He denies any current thoughts of SI/HI. Denies any hallucinations so far this shift. Stated that he had a mild headache, but declined any PRN Tylenol, stating "I'll just sleep it off." He appears to be sleeping comfortably at present time. Will continue to monitor.
--- NOTE | 2021-05-14 22:54 | PN ---
DATE: 05/14/2021 SUBJECTIVE: The patient was seen today, met with the staff. Chart was reviewed and covering for Dr. Bey. Staff reports social isolation, withdrawal and also psychomotor retardation. Overall, he has been pleasant and cooperative. The patient also admits to having auditory hallucinations for the past several weeks. He usually stays in talking to him, telling him to kill others and also to hurt himself. OBSERVATION: VITAL SIGNS: Temperature 97.7, blood pressure 102/65, pulse 75, respirations 14, O2 sat 94%. GENERAL: Slept about 7 hours last night. The patient's appetite improved. LABORATORY DATA: The patient's lab reviewed,. CURRENT MEDICATIONS: The patient's current medications include __, Celexa 40 mg daily, Seroquel 50 mg daily and 300 mg at night, Lamictal 200 mg twice a day, clonazepam 0.5 mg twice a day, BuSpar 20 mg 3 times a day. The patient is not having any side effects. ASSESSMENT: 1. Major depressive disorder with psychotic features. 2. Psychotic disorder, unspecified. PLAN: Continue with the current treatment plan. LEONIE DR: Precious TID: [id number]
[2021-05-15 05:31] VITALS: BP 112/62
[2021-05-15] MEDS: CARBIDOPA/LEVODOPA 25/100MG TABLET PO SCH ×2 (08:18→20:17)
[2021-05-15] MEDS: busPIRone 10 MG TABLET. PO SCH ×3 (08:18→20:15)
[2021-05-15] MEDS: OMEGA-3 FATTY ACIDS/FISH OIL 1,000 MG CAPSULE. PO SCH (08:18)
[2021-05-15] MEDS: QUEtiapine 50 MG TABLET. PO SCH (08:19)
[2021-05-15] MEDS: SENNOSIDES 8.6 MG TABLET PO SCH ×2 (08:19→20:16)
[2021-05-15] MEDS: metFORMIN 500 MG TABLET PO SCH (08:19)
[2021-05-15] MEDS: CITALOPRAM 20 MG TABLET. PO SCH (08:19)
[2021-05-15] MEDS: FOLIC ACID 1 MG TABLET PO SCH (08:19)
[2021-05-15] MEDS: LUBIPROSTONE 24 MCG CAPSULE PO SCH ×2 (08:19→16:08)
[2021-05-15] MEDS: clonazePAM 0.5 MG TABLET PO SCH ×2 (08:19→20:17)
[2021-05-15] MEDS: FAMOTIDINE 20 MG TABLET PO SCH ×2 (08:20→20:16)
[2021-05-15] MEDS: lamoTRIgine 100 MG TABLET. PO SCH ×2 (08:20→20:16)
[2021-05-15] MEDS: ASPIRIN CHEWABLE 81 MG TABLET. PO SCH (08:20)
[2021-05-15] MEDS: CHOLECALCIFEROL (VITAMIN D3) 1,000 UNIT TABLET PO SCH (08:20)
[2021-05-15] MEDS: LISINOPRIL 2.5 MG TABLET PO SCH (08:20)
--- NOTE | 2021-05-15 10:06 | NUR ---
Pt appropriate this morning and absent of disruptive behaviors. Denies SI/HI/VH/AH/delusions/pain at this time. Compliant with whole medications. He is a solitary individual, who prefers to listen to music and read in his room, but he will come out for meals and is appropriate in his interactions with others. Plan of care continues, will pass to next shift.
[2021-05-15] MEDS: QUEtiapine 100 MG TABLET. PO SCH ×2 (14:23→20:17)
[2021-05-15 15:40] VITALS: BP 115/74
[2021-05-15] MEDS: ATORVASTATIN CALCIUM 20 MG TABLET PO SCH (20:16)
--- NOTE | 2021-05-15 21:00 | NUR ---
Patient is located in his room on assumption of care, listening to the kaylie and reading a magazine. He presents with a flat affect and speaks very softly. He denies any current thoughts of SI/HI. Denies any hallucinations so far this shift. Denies any pain or discomfort. He appears to be sleeping comfortably at present time. Will continue to monitor.
--- NOTE | 2021-05-15 21:18 | PN ---
DATE: 05/15/2021 SUBJECTIVE: The patient was seen today, met with the staff, chart reviewed. The patient continues to be depressed, withdrawn, decreased psychomotor activity and tend to isolate himself in his room. The patient continues to complain of auditory hallucinations, but improved. The patient states the hallucinations are not command in nature at this time. OBSERVATION: VITAL SIGNS: Temperature 97.3, blood pressure 112/62, pulse 80, respirations 18, O2 sat 95%. GENERAL: Slept about 7 hours last night. The patient's appetite is fair. LABORATORY DATA: The patient's lab reviewed. CURRENT MEDICATIONS: The patient's current medications include Celexa 40 mg daily, Seroquel 50 mg daily and 300 mg at night, Lamictal 200 mg twice a day, clonazepam 0.5 mg twice a day, BuSpar 20 mg 3 times a day. The patient denies of any major side effects to medications. ASSESSMENT: 1. Major depressive disorder with psychotic features. 2. Psychotic disorder, unspecified. PLAN: Continue with the current treatment plan. LENGTH OF STAY: [address]: Precious TID: [id number]
--- NOTE | 2021-05-15 22:52 | CONS ---
DATE OF CONSULTATION: 05/12/2021 NEUROLOGY CONSULTATION REFERRING PHYSICIAN: Dr. Bey REASON FOR CONSULTATION: Parkinson disease and increased auditory hallucinations. HISTORY OF PRESENT ILLNESS: This is a 61-year-old right-handed male who was [facility]21 on account of increased symptoms of auditory hallucinations and depressions. The patient is a [facility] resident. He has failed a psychiatric treatment at [facility] and [facility] as well. Therefore, his main complaints include worsening of auditory hallucinations and increased symptoms of depressions. Neuro consult was requested by Dr. Bey to evaluate his Parkinson disease and current treatment and if there is any correlation between medications and auditory hallucinations. The patient stated he has been followed by neurologist, Dr. Lenz at [facility] for several years for his Parkinson disease. Apparently, he underwent bilateral deep brain stimulator placement in the last 4 years with significant relief of his severe tremor and rigidity. The patient has been very stable and happy with current medications as well as with surgical intervention to stabilize his symptoms; however, he has been noticing increasing symptoms of auditory hallucinations as stated above, which may sometimes be dangerous to himself and to the staff. Currently, he denies headaches, visual disturbances, nausea, vomiting, chest pain, shortness of breath or palpitation, dysarthria, dysphagia. He has been ambulating with a walker. He denies any recent falls or head injuries. PAST MEDICAL HISTORY: Significant for Parkinson disease, required a surgical intervention with deep brain stimulator implants bilaterally with significant relief of his rigidity and tremor as well. History of diabetes mellitus type 2, hypertension, gastroesophageal reflux disease. PAST SURGICAL HISTORY: Significant for deep brain stimulator implant as described above, right inguinal hernia repair and surgery for right leg and ankle joint. FAMILY HISTORY: Noncontributory. SOCIAL HISTORY: The patient is . He is a resident at [facility]. He denies smoking, alcohol drinking or illicit drug use. CURRENT MEDICATIONS: Includes carbidopa/levodopa 25/100 three times daily, Lipitor 20 mg at bedtime, Seroquel 100 mg at 2:00, fish oil, vitamin D 1000 units p.o. daily, Senna 8.6 mg b.i.d., metformin 1000 mg daily APO, Amitiza 24 mcg b.i.d., lisinopril 2.5 mg daily, folic acid 1 mg daily, famotidine 20 mg b.i.d., aspirin 81 mg daily, Celexa 40 mg daily, Seroquel 50 mg p.o. daily and Seroquel 300 mg at bedtime, lamotrigine 200 mg b.i.d., clonazepam 0.5 mg t.i.d., BuSpar 20 mg t.i.d. ALLERGIES: IODINATED CONTRAST MEDIA AND PREDNISOLONE. REVIEW OF SYSTEMS: A 10-point review of system was performed as mentioned above in history of present illness, otherwise unremarkable. PHYSICAL EXAMINATION: GENERAL: Well-developed, well-nourished male in no acute distress. He weighs 87.4 kilos. VITAL SIGNS: Blood pressure 118/79, respiratory rate 18, pulse is 101, temperature 98.2, oxygen saturation 94% on room air. HEENT: Normocephalic, atraumatic. otherwise unremarkable. NECK: Supple. Negative for carotid bruit, lymphadenopathy or thyromegaly. LUNGS: Clear to A and P. CARDIOVASCULAR: Regular rate and rhythm. Normal S1, S2. There is no S3, S4 or murmur. ABDOMEN: Soft. Bowel sounds positive. EXTREMITIES: Negative for cyanosis, clubbing or pedal edema. NEUROLOGIC: Mental Status: The patient is alert and oriented x 3. Speech is fluent. There is no language dysfunction. Memory, judgment and abstracting thinking are normal. The patient admitted to auditory hallucinations, but he denies delusion. Cranial nerves: Visual merida are full. The pupils are reactive to light and accommodation. The extraocular movements are intact. There is no nystagmus. There is no facial motor or sensory deficit. Hearing is intact bilaterally. The palate is elevated symmetrically. Sternocleidomastoid muscles are powerful bilaterally. The patient shrugs his shoulders symmetrically, protrudes his tongue in the midline without fasciculation or atrophy. Motor exam: No focal muscle bulk wasting. The tone is normal. The strength is 4/5 throughout. Sensory examination revealed normal pinprick, light touch, vibratory and position senses. Deep tendon reflexes were symmetric and active without pathology responses. Gait: The patient uses a walker for ambulation. LABORATORY DATA: From 05/11/2021 CBC revealed white blood cells of 6.8, hemoglobin 14.9, hematocrit 43.6, platelet count 191,000. Chemistry revealed sodium of 145, potassium 3.6, chloride 106, CO2 of 28, BUN 16, creatinine 0.8, glucose 113. Hemoglobin A1c is 5.8. Calcium is 8.7, magnesium is normal at 2.3. Iron is normal at 85. Liver enzymes are low. Lipid profile is normal. Vitamin D is normal and thyroid profile revealed low thyroxine at 4.4 with normal TSH. Urinalysis is white blood cells of 5-10 with negative leukocyte esterase and nitrate. D-dimer is normal. COVID PCR not detected and RPR is nonreactive. IMPRESSION: 1. Longstanding history of Parkinson disease, required surgical intervention with bilateral deep brain stimulator implantation with significant relief of his rigidity and tremor. 2. Disturbing auditory hallucinations, probably multifactorial including a side effect of Sinemet. 3. Multiple psychiatric problems includes depression and anxiety disorder. 4. Multiple medical problems include hypertension, hyperlipidemia, diabetes mellitus and gastroesophageal reflux disease. RECOMMENDATIONS: 1. Continue with current medical and psychiatric care. 2. We will decrease Sinemet immediate release 25/100 from t.i.d. to b.i.d. and see if the patient has less frequent auditory hallucinations. BELIA DR: Yein TID: [id number]
--- NOTE | 2021-05-15 23:00 | PN ---
DATE: 05/15/2021 REFERRING PHYSICIAN: Dr. Bey. SUBJECTIVE: The patient denies any new medical or neurological complaints. He stated his auditory hallucination has improved in the last two days in terms of intensity and frequency. He denies tremor, rigidity or recent falls or injuries. OBJECTIVE: GENERAL: Well-developed, well-nourished male in no acute distress. VITAL SIGNS: Afebrile, blood pressure 102/65, respiratory rate 16, pulse is 75 and regular, temperature is 97.7, oxygen saturation 96% on room air. HEENT: Normocephalic, atraumatic, otherwise unremarkable. NECK: Supple, negative for carotid bruit, lymphadenopathy or thyromegaly. LUNGS: Clear to A and P. CARDIOVASCULAR: Regular rate and rhythm, normal S1, S2. There is no S3, S4 or murmur. ABDOMEN: Soft. Bowel sounds positive. EXTREMITIES: Negative for cyanosis, clubbing or pedal edema. NEUROLOGIC: Mental status: The patient is alert and oriented x 2. The speech is fluent. There is no language dysfunction. Memory, judgment and abstracting thinking are normal. The patient denies delusion, but he continues to have intermittent auditory hallucinations. ___ cranial nerves are intact. No focal motor or sensory deficit. No tremor was noticed today. Deep tendon reflexes were symmetric and active without pathology responses. Gait: The patient uses a walker for ambulation. LABORATORY DATA: Glucose is 111. IMPRESSION: 1. Longstanding history of Parkinson's disease, required a bilateral deep brain stimulator implants for severe rigidity and tremor with successful treatment. 2. Auditory hallucinations, probably multifactorial including side effects of carbidopa/levodopa. .3. Multiple medical problems include hypertension, hyperlipidemia, diabetes mellitus and gastroesophageal reflux disease. 4. Multiple psychiatric problems include depressions and anxiety disorder. RECOMMENDATIONS: 1. We will continue with current medical and psychiatric care: 2. Continue with carbidopa/levodopa 25/[address]: Yeni TID: [id number]
--- NOTE | 2021-05-15 23:08 | PN ---
DATE: 05/13/2021 SUBJECTIVE: The patient continues to have an intermittent auditory hallucinations. He denies suicidal ideations. He denies any new neurological complaints. The patient has had a history of Parkinson disease, required surgical intervention with bilateral deep brain stimulator implant over the last few years with significant relief of his rigidity and tremor. OBJECTIVE: GENERAL: Well-developed, well-nourished male not in acute distress. VITAL SIGNS: Blood pressure 100/69, respiratory rate 16, pulse is 87 and regular, temperature 98.1, oxygen saturation 95% on room air. HEENT: Normocephalic, atraumatic. otherwise unremarkable. NECK: Supple, negative for carotid bruit, lymphadenopathy or thyromegaly. LUNGS: Clear to A and P. CARDIOVASCULAR: Regular rate and rhythm, normal S1, S2. ABDOMEN: Soft. Bowel sounds positive. EXTREMITIES: Negative for cyanosis, clubbing or pedal edema. NEUROLOGIC: Mental status: The patient is alert and oriented x3. The speech is more fluent. There is no language dysfunction. Memory, judgment and abstracting thinking are normal. The patient denies hallucination or delusion. Cranial nerves are intact. No focal motor or sensory deficit. The tone is normal. The strength is 4/5 throughout. The patient has no obvious tremor. Deep tendon reflexes were symmetric and active without pathologic responses. Gait: The stance is steady. The patient uses a walker for ambulation. IMPRESSION: 1. Longstanding history of Parkinson disease as described above. 2. Worsening of auditory hallucinations, probably multifactorial. 3. Multiple psychiatric problems include depressions, anxiety disorder. 4. Multiple medical problems include hypertension, hyperlipidemia, diabetes mellitus and gastroesophageal reflux disease. RECOMMENDATIONS: 1. We will continue with current medical and psychiatric care. 2. Continue with current Sinemet 25/100 b.i.d. MIKE/JADEN DR: MIKE/parmjit TID: [id number]
[2021-05-16 05:53] VITALS: BP 107/68
[2021-05-16] MEDS: FAMOTIDINE 20 MG TABLET PO SCH ×2 (09:00→20:39)
[2021-05-16] MEDS: metFORMIN 500 MG TABLET PO SCH (09:00)
[2021-05-16] MEDS: LUBIPROSTONE 24 MCG CAPSULE PO SCH ×2 (09:00→16:54)
[2021-05-16] MEDS: CHOLECALCIFEROL (VITAMIN D3) 1,000 UNIT TABLET PO SCH (09:00)
[2021-05-16] MEDS: QUEtiapine 50 MG TABLET. PO SCH (09:01)
[2021-05-16] MEDS: SENNOSIDES 8.6 MG TABLET PO SCH ×2 (09:01→20:39)
[2021-05-16] MEDS: ASPIRIN CHEWABLE 81 MG TABLET. PO SCH (09:01)
[2021-05-16] MEDS: OMEGA-3 FATTY ACIDS/FISH OIL 1,000 MG CAPSULE. PO SCH (09:01)
[2021-05-16] MEDS: FOLIC ACID 1 MG TABLET PO SCH (09:01)
[2021-05-16] MEDS: CITALOPRAM 20 MG TABLET. PO SCH (09:01)
[2021-05-16] MEDS: CARBIDOPA/LEVODOPA 25/100MG TABLET PO SCH ×2 (09:01→20:38)
[2021-05-16] MEDS: LISINOPRIL 2.5 MG TABLET PO SCH (09:01)
[2021-05-16] MEDS: clonazePAM 0.5 MG TABLET PO SCH ×2 (09:01→20:38)
[2021-05-16] MEDS: lamoTRIgine 100 MG TABLET. PO SCH ×2 (09:01→20:38)
[2021-05-16] MEDS: busPIRone 10 MG TABLET. PO SCH ×3 (09:01→20:39)
--- NOTE | 2021-05-16 12:23 | NUR ---
SW received a call from pt Pita who had questions about the 30-day notice as she has been given one from [employer]. On the 30-day notice it is noted that they will send the pt home. SW is not sure if that will be able to happen and encouraged her to call the Ombudsman to see if the facility can do that. SW noted that quite a few referrals were sent out; however, no responses re: approval vs. denial. Pita reports that she cannot care for pt at home as she still works and she does not feel safe with pt there. 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
[2021-05-16] MEDS: QUEtiapine 100 MG TABLET. PO SCH ×2 (14:28→20:39)
--- NOTE | 2021-05-16 15:13 | NUR ---
Nursing note: Pt in his room at time of AM med pass and assessment. He is pleasant, med compliant and cooperative. He denies having any pain at time of assessment. Pt does continue to hear voices. When asked about what the voices are saying pt "can't explain it". He says they are both good and bad voices. He has remained in his room for most of the shift listening to music and reading the newspaper. Will continue to monitor.
[2021-05-16 15:37] VITALS: BP 94/62
[2021-05-16] MEDS: ACETAMINOPHEN 325 MG TABLET PO PRN (20:38)
[2021-05-16] MEDS: ATORVASTATIN CALCIUM 20 MG TABLET PO SCH (20:39)
--- NOTE | 2021-05-17 00:22 | NUR ---
Patient sitting in hallway near his room waiting for his HS medications. He reports that he has a 7/10 headache and received PRN tylenol with HS medications. Patient stated he "still can hear the voices, but there are less than before". He denies wanting to hurt himself or others at this time and states "the devil is no longer telling me to hurt people".
--- NOTE | 2021-05-17 01:01 | PN ---
DATE: 05/16/2021 SUBJECTIVE: The patient was seen today, met with the staff. Chart was reviewed and also covering for Dr. Bey. Staff reports no major behavior problems. Pleasant, cooperative and admits to having auditory hallucinations, but they are not command in nature. The patient says the voices does not bother him anymore. The patient is still depressed, but not having any negative thoughts. CURRENT MEDICATIONS: Celexa 40 mg daily, Seroquel 50 mg daily, Seroquel 300 mg at night, Lamictal 200 mg twice a day, clonazepam 0.5 mg twice a day and BuSpar 20 mg 3 times a day. The patient denies of any side effects to medications. ASSESSMENT: 1. Major depressive disorder with psychotic features. 2. Psychotic disorder, unspecified. PLAN: To continue with the treatment. LENGTH OF STAY: Five to seven days. ANDRES DR: Precious TID: [id number]
[2021-05-17 05:41] VITALS: BP 120/79
[2021-05-17] MEDS: CITALOPRAM 20 MG TABLET. PO SCH (08:07)
[2021-05-17] MEDS: CARBIDOPA/LEVODOPA 25/100MG TABLET PO SCH ×2 (08:07→20:32)
[2021-05-17] MEDS: clonazePAM 0.5 MG TABLET PO SCH ×2 (08:07→20:31)
[2021-05-17] MEDS: QUEtiapine 50 MG TABLET. PO SCH (08:07)
[2021-05-17] MEDS: CHOLECALCIFEROL (VITAMIN D3) 1,000 UNIT TABLET PO SCH (08:07)
[2021-05-17] MEDS: LISINOPRIL 2.5 MG TABLET PO SCH (08:07)
[2021-05-17] MEDS: SENNOSIDES 8.6 MG TABLET PO SCH ×2 (08:08→20:30)
[2021-05-17] MEDS: metFORMIN 500 MG TABLET PO SCH (08:08)
[2021-05-17] MEDS: FAMOTIDINE 20 MG TABLET PO SCH ×2 (08:08→20:31)
[2021-05-17] MEDS: FOLIC ACID 1 MG TABLET PO SCH (08:08)
[2021-05-17] MEDS: lamoTRIgine 100 MG TABLET. PO SCH ×2 (08:08→20:31)
[2021-05-17] MEDS: ASPIRIN CHEWABLE 81 MG TABLET. PO SCH (08:08)
[2021-05-17] MEDS: busPIRone 10 MG TABLET. PO SCH ×3 (08:08→20:31)
[2021-05-17] MEDS: OMEGA-3 FATTY ACIDS/FISH OIL 1,000 MG CAPSULE. PO SCH (08:09)
[2021-05-17] MEDS: LUBIPROSTONE 24 MCG CAPSULE PO SCH ×2 (08:09→16:34)
--- NOTE | 2021-05-17 09:51 | NUR ---
Nursing note: Pt sitting in kevin at time of AM med pass and assessment. He is pleasant, med compliant and cooperative. Pt denies having any pain at time of assessment, but does request milk of mag as "miralax doesn't do anything for me". PRN provided per pt request. He is currently sitting in the day room watching TV. Will continue to monitor.
[2021-05-17] MEDS: ACETAMINOPHEN 325 MG TABLET PO PRN ×2 (10:18→20:31)
--- NOTE | 2021-05-17 11:52 | NUR ---
BRANDAN spoke to Josh and discussed all placement options at this time. [facility] has denied pt, [facility] has a waiting list, [facility] will not make any decisions until next week, No word from the [place] location for either green party, [facility] is not looking for referrals at this time due to staffing, [facility] cannot accept anyone until the due to Covid concerns. BRANDAN sent referrals to [facility], [place], [facility] and [facility]. Both parties will continue to work on placement and keep one another updated.
[2021-05-17] MEDS: QUEtiapine 100 MG TABLET. PO SCH ×2 (13:07→20:31)
[2021-05-17 15:05] VITALS: BP 101/68
--- NOTE | 2021-05-17 16:50 | NUR ---
BRANDAN contacted pt Pita to discuss the insurance coverage for the whole week with an update on Sunday; as well as to establish a passcode for pt. It was just brought to BRANDAN attention that pt had not had one established. BRANDAN let Pita know that the unix systems administrator at [facility] in [place] will be reviewing pt case with his team tomorrow and should have an answer as to if they will be able to accept pt. Once BRANDAN hears back from them, she will make sure to update Pita.
[2021-05-17] MEDS: ATORVASTATIN CALCIUM 20 MG TABLET PO SCH (20:30)
--- NOTE | 2021-05-17 22:15 | NUR ---
Niels pt has mainly sat quietly in his room reading. He took meds whole and has been cooperative with cares. He denies hallucinations at present and says that reading keeps the voices from returning. He has had no behaviors tonight.
--- NOTE | 2021-05-18 00:06 | PN ---
DATE: 05/17/2021 SUBJECTIVE: The patient was seen today, met with the staff, chart reviewed. Staff reports continued improvement. The patient apparently participating in all activities, less depressed, but still withdrawn, but able to verbalize his needs and also discussed his discharge plans. The patient continues to have auditory hallucinations, but not intense. The patient does not have any other psychotic symptoms. OBSERVATION: VITAL SIGNS: Temperature 98.8, blood pressure 120/79, pulse 78, respirations 18, O2 sat 95%. GENERAL: The patient slept about 7 hours last night. The patient's appetite normal. Patient does not have any other physical complaints. CURRENT MEDICATIONS: Include Celexa 40 mg daily, Seroquel 50 mg daily and 300 mg at night, Lamictal 200 mg twice a day, clonazepam 0.5 mg twice a day and BuSpar 20 mg 3 times a day. The patient denies of any side effects to medications. ASSESSMENT: 1. Major depressive disorder with psychotic features. 2. Psychotic disorder, unspecified. PLAN: To continue treatment. LENGTH OF STAY: Two to three days. CARLOS DR: Precious TID: [id number]
[2021-05-18 06:03] VITALS: BP 100/64
--- NOTE | 2021-05-18 06:13 | PN ---
SUBJECTIVE: The patient denies any new medical or neurological complaints. He stated his hallucination has been less intense throughout the day. He denies any worsening of Parkinson symptoms. OBJECTIVE: GENERAL: Well-developed, well-nourished male in no acute distress. VITAL SIGNS: Blood pressure 101/68, respiratory rate 18, pulse is 87, temperature 98, oxygen saturation is 92% on room air. HEENT: Normocephalic, atraumatic. Otherwise unremarkable. NECK: Supple. Negative for carotid bruit, lymphadenopathy or thyromegaly. LUNGS: Clear to A and P. CARDIOVASCULAR: Regular rate and rhythm, normal S1, S2. There is no S3, S4 or murmur. ABDOMEN: Soft. Bowel sounds positive. EXTREMITIES: Negative for cyanosis, clubbing or pedal edema. NEUROLOGIC: Mental status: The patient is alert and oriented. Speech is fluent. No language dysfunction. Memory, judgment and abstracting thinking are fair. The patient denies hallucination or delusion. Cranial nerves: Memory, judgment and abstracting thinking are normal. The patient denies hallucination or delusion. Cranial nerves intact. No focal motor or sensory deficit. Deep tendon reflexes are symmetric and active without pathology responses. Gait and coordination, the patient uses a walker for ambulation. IMPRESSION: 1. Longstanding history of Parkinson's disease. 2. Intermittent auditory hallucinations -- improved. 3. Multiple psychiatric problems include major depressions and anxiety. 4. Multiple medical problems include hypertension, hyperlipidemia, diabetes mellitus and gastroesophageal reflux disease. RECOMMENDATIONS: 1. Continue with current medical and psychiatric care. 2. Continue with current Sinemet 25/[address]: Yeni TID: [id number]
[2021-05-18] MEDS: metFORMIN 500 MG TABLET PO SCH (08:08)
[2021-05-18] MEDS: LUBIPROSTONE 24 MCG CAPSULE PO SCH ×2 (08:08→15:37)
[2021-05-18] MEDS: FAMOTIDINE 20 MG TABLET PO SCH ×2 (08:08→20:18)
[2021-05-18] MEDS: CHOLECALCIFEROL (VITAMIN D3) 1,000 UNIT TABLET PO SCH (08:08)
[2021-05-18] MEDS: clonazePAM 0.5 MG TABLET PO SCH ×2 (08:08→20:18)
[2021-05-18] MEDS: busPIRone 10 MG TABLET. PO SCH ×3 (08:08→20:17)
[2021-05-18] MEDS: QUEtiapine 50 MG TABLET. PO SCH (08:09)
[2021-05-18] MEDS: CARBIDOPA/LEVODOPA 25/100MG TABLET PO SCH ×2 (08:09→20:18)
[2021-05-18] MEDS: CITALOPRAM 20 MG TABLET. PO SCH (08:09)
[2021-05-18] MEDS: ASPIRIN CHEWABLE 81 MG TABLET. PO SCH (08:09)
[2021-05-18] MEDS: lamoTRIgine 100 MG TABLET. PO SCH ×2 (08:09→20:17)
[2021-05-18] MEDS: OMEGA-3 FATTY ACIDS/FISH OIL 1,000 MG CAPSULE. PO SCH (08:09)
[2021-05-18] MEDS: FOLIC ACID 1 MG TABLET PO SCH (08:09)
[2021-05-18] MEDS: LISINOPRIL 2.5 MG TABLET PO SCH (08:09)
[2021-05-18] MEDS: ACETAMINOPHEN 325 MG TABLET PO PRN ×2 (08:16→15:37)
[2021-05-18] MEDS: SENNOSIDES 8.6 MG TABLET PO SCH ×2 (08:17→20:18)
--- NOTE | 2021-05-18 13:40 | NUR ---
BRANDAN met with pt who wanted to know his discharge plan. BRANDAN explained that pt would be looking at discharge on Sunday; SW also explained that pt may not return to [facility] of the [facility] II facility is able to accept pt. He would then transfer from us to the Level II placement. Pt appeared "confused" however, SW noted with pt that it had been discussed with him about going to a Level II and pt stated "but [facility] is the best I've ever been". BRANDAN noted with pt that he made a false statement and informed him that he has been out over 10 times in the last 3 months. "If [facility] was meeting your needs, they would be more than willing to take you back. However, you get sent out almost on a weekly basis and it is apparent to them that your needs are not being met and you are not able to remain there". BRANDAN informed pt that she would keep pt updated and meet with him on Sunday once the insurance update is completed and a final decision on placement has been made.
[2021-05-18] MEDS: QUEtiapine 100 MG TABLET. PO SCH ×2 (14:20→20:18)
[2021-05-18 15:32] VITALS: BP 103/66
--- NOTE | 2021-05-18 18:30 | NUR ---
Patient has been calm, cooperative, pleasant, and occasionally attention seeking during this shift. He has denied hearing voices today. Patient participated in afternoon group, otherwise he was withdrawn to his room with a Melody. He has had multiple complaints of headache, prn medications provided per eMAR. Will continue to monitor and report to oncoming shift.
[2021-05-18] MEDS: ATORVASTATIN CALCIUM 20 MG TABLET PO SCH (20:18)
--- NOTE | 2021-05-18 21:00 | NUR ---
Patient sits in his room and is reading magazines. He has been out the nurses station several times to report that he needed tylenol for his headache. Patient had tylenol at 1630 and cannot have more until 2229. Patient is accepting of that answer. Patient has flat affect and speaks in a monotone, whispery voice that is hard to understand. He denies hallucinations at this time when asked. Patient denies SI/HI when asked.
--- NOTE | 2021-05-19 01:16 | PN ---
DATE: 05/18/2021 SUBJECTIVE: The patient was seen today, met with the staff. Chart was reviewed. Also covering for Dr. Bey. Staff reports no major behavior problems and admits to having auditory hallucinations, but not responding to it. The patient does not have any other psychotic symptoms. The patient recently complaining of headaches in the morning. OBSERVATION: VITAL SIGNS: Temperature 97.5, blood pressure 100/64, pulse 70, respirations 16, O2 sat 94%. GENERAL: Slept about 8 hours last night. The patient's appetite is normal. LABORATORY DATA: The patient's lab reviewed. CURRENT MEDICATIONS: Includes Celexa 40 mg daily, Seroquel 50 mg daily and 300 mg at night, Lamictal 200 mg twice a day, clonazepam 0.5 mg twice a day and BuSpar 20 mg 3 times a day. The patient denies of any side effects to medications. ASSESSMENT: 1. Major depressive disorder with psychotic features. 2. Psychotic disorder, unspecified. PLAN: To continue treatment. Plan for discharge as soon as the placement is available. LENGTH OF STAY: Three days. CARLOS DR: Precious TID: [id number]
[2021-05-19 05:29] VITALS: BP 112/73
[2021-05-19 07:24] LABS: BASO % 1 % (0-3); EOS # 0.2 x10^3/uL (0.0-0.7); EOS % 3 % (0-3); HEMOGLOBIN 14.6 g/dL (13.0-17.5); LYMPH # 2.5 x10^3/uL (1.0-4.8); LYMPH % 39 % (24-48); MEAN CORPUSCULAR HEMOGLOBIN 31 pg (25-35); MEAN CORPUSCULAR HGB CONC 34 g/dL (31-37); MEAN CORPUSCULAR VOLUME 92 fL (79-100); MONO # 0.5 x10^3/uL (0.0-1.1); MONO % 7 % (0-9); NEUT # 3.3 x10^3uL (1.8-7.7); NEUT % 51 % (31-73); PLATELET COUNT 192 x10^3/uL (140-400); RED BLOOD COUNT 4.67 x10^6/uL (4.30-5.70); RED CELL DISTRIBUTION WIDTH 12.9 % (11.5-14.5); WHITE BLOOD COUNT 6.4 x10^3/uL (4.0-11.0)
[2021-05-19 07:33] LABS: ALBUMIN 3.5 g/dL (3.4-5.0); ALBUMIN/GLOBULIN RATIO 1.2 (1.0-1.7); CALCIUM 8.6 mg/dL (8.5-10.1); CREATININE 0.9 mg/dL (0.7-1.3); GFR 86.1; POTASSIUM 3.9 mmol/L (3.5-5.1); TOTAL BILIRUBIN 0.3 mg/dL (0.2-1.0); TOTAL PROTEIN 6.4 g/dL (6.4-8.2)
[2021-05-19] MEDS: OMEGA-3 FATTY ACIDS/FISH OIL 1,000 MG CAPSULE. PO SCH (08:31)
[2021-05-19] MEDS: CHOLECALCIFEROL (VITAMIN D3) 1,000 UNIT TABLET PO SCH (08:31)
[2021-05-19] MEDS: CARBIDOPA/LEVODOPA 25/100MG TABLET PO SCH ×2 (08:31→20:16)
[2021-05-19] MEDS: busPIRone 10 MG TABLET. PO SCH ×3 (08:31→20:17)
[2021-05-19] MEDS: metFORMIN 500 MG TABLET PO SCH (08:31)
[2021-05-19] MEDS: QUEtiapine 50 MG TABLET. PO SCH (08:32)
[2021-05-19] MEDS: LISINOPRIL 2.5 MG TABLET PO SCH (08:32)
[2021-05-19] MEDS: lamoTRIgine 100 MG TABLET. PO SCH ×2 (08:32→20:17)
[2021-05-19] MEDS: ASPIRIN CHEWABLE 81 MG TABLET. PO SCH (08:32)
[2021-05-19] MEDS: FAMOTIDINE 20 MG TABLET PO SCH ×2 (08:32→20:16)
[2021-05-19] MEDS: clonazePAM 0.5 MG TABLET PO SCH ×2 (08:32→20:16)
[2021-05-19] MEDS: CITALOPRAM 20 MG TABLET. PO SCH (08:32)
[2021-05-19] MEDS: FOLIC ACID 1 MG TABLET PO SCH (08:32)
[2021-05-19] MEDS: SENNOSIDES 8.6 MG TABLET PO SCH ×2 (08:33→20:18)
[2021-05-19] MEDS: LUBIPROSTONE 24 MCG CAPSULE PO SCH ×2 (08:33→17:07)
--- NOTE | 2021-05-19 12:24 | NUR ---
WEEKLY ACTIVITY THERAPY NOTE Date of Admission:05/10/21 Date of AT Assessment: 05/13 Precipitating behaviors that initiated intake and admission:Pt at [facility] X 4 days for SI HI, has had command hallucinations to kill staff and self with no plan no action. Pt needs placement in level 2 has failed at 0 facilities recently. Report from Chitra at [facility] Goal aimed: increase socialization and engagement Initial Goal: Pt will participate in at least five Activity Therapy groups per week Weekly progress towards goal: did not achieve, 4/5 Group participation level: 1 min, 3 full Weekly highlights: moved to group therapy side, answered grid category questions independently Sunday, put together a Joe craft independently Sunday afternoon Behaviors observed: when asked how he was feeling he initially was thumbs down but after talking about feelings/emotions he was thumbs level Plan: no change to goal Beneficial adaptations: socialization and engagement
[2021-05-19] MEDS: QUEtiapine 100 MG TABLET. PO SCH ×2 (13:58→20:21)
--- NOTE | 2021-05-19 14:16 | NUR ---
Treatment team update: Pt is eating 100% of meals and sleeping on average 7.5 hours per night. Pt has denied hallucinations for the last 48 hours. He continues to also deny any SI/HI. Pt has been doing some questionable behavior such as asking for the tablet or for a newspaper and putting them in his room; but not actually using them. Pt does have headache complaints that seems to be decreased through the use of Tylenol. Pt has been approved by insurance until Wednesday 05/23. SW will continue to follow-up re: placement either back to [facility] or to [facility] in [place].
[2021-05-19 15:43] VITALS: BP 109/70
[2021-05-19] MEDS: ACETAMINOPHEN 325 MG TABLET PO PRN (17:07)
--- NOTE | 2021-05-19 18:10 | NUR ---
Patient has been calm, cooperative, pleasant, and occasionally attention seeking during this shift. He has denied hearing voices or thinking of self-harm. Patient participated in afternoon group, otherwise he was withdrawn to his room with a Melody. He has had continued complaints of headache, denied interventions in morning then asked for prn medications in late afternoon. Will continue to monitor and report to oncoming shift.
[2021-05-19] MEDS: ATORVASTATIN CALCIUM 20 MG TABLET PO SCH (20:17)
--- NOTE | 2021-05-20 03:12 | NUR ---
Daniel has spent most of this shift in his room. He has been pleasant and cooperative with staff and spent the evening in his room reading and watching tractor pull videos on a tablet. He took meds whole without difficulty and has had no behaviors tonight.
--- NOTE | 2021-05-20 03:47 | PN ---
DATE: 05/19/2021 SUBJECTIVE: The patient was seen today, met with the staff, chart reviewed. The patient continues to show improvement. The patient is complaining of frequent headaches. The patient continues to be withdrawn, paranoid, but no overt psychotic symptoms. Staff reports he continues to be paranoid and having auditory hallucinations, but not acting upon it. The patient denied of any suicidal thoughts. MEDICATIONS: The patient's medications reviewed and he is on Celexa 40 mg daily, Seroquel 50 mg daily and 300 mg at night, Lamictal 200 mg twice a day, clonazepam 0.5 mg twice a day and BuSpar 20 mg 3 times a day. He denies of any side effects to medications. LABORATORY DATA: The patient's lab reviewed. ASSESSMENT: 1. Major depressive disorder with psychotic features. 2. Psychotic disorder, unspecified. PLAN: To continue with the treatment. The patient still awaiting for placement. LENGTH OF STAY: Three to four days. JO DR: Precious TID: [id number]
[2021-05-20 05:49] VITALS: BP 105/68
[2021-05-20] MEDS: CHOLECALCIFEROL (VITAMIN D3) 1,000 UNIT TABLET PO SCH (08:36)
[2021-05-20] MEDS: OMEGA-3 FATTY ACIDS/FISH OIL 1,000 MG CAPSULE. PO SCH (08:36)
[2021-05-20] MEDS: metFORMIN 500 MG TABLET PO SCH (08:37)
[2021-05-20] MEDS: CARBIDOPA/LEVODOPA 25/100MG TABLET PO SCH ×2 (08:37→19:33)
[2021-05-20] MEDS: busPIRone 10 MG TABLET. PO SCH ×3 (08:37→19:31)
[2021-05-20] MEDS: ASPIRIN CHEWABLE 81 MG TABLET. PO SCH (08:37)
[2021-05-20] MEDS: FAMOTIDINE 20 MG TABLET PO SCH ×2 (08:37→19:32)
[2021-05-20] MEDS: CITALOPRAM 20 MG TABLET. PO SCH (08:37)
[2021-05-20] MEDS: FOLIC ACID 1 MG TABLET PO SCH (08:37)
[2021-05-20] MEDS: LISINOPRIL 2.5 MG TABLET PO SCH (08:37)
[2021-05-20] MEDS: LUBIPROSTONE 24 MCG CAPSULE PO SCH ×2 (08:37→16:17)
[2021-05-20] MEDS: clonazePAM 0.5 MG TABLET PO SCH ×2 (08:37→19:32)
[2021-05-20] MEDS: QUEtiapine 50 MG TABLET. PO SCH (08:37)
[2021-05-20] MEDS: SENNOSIDES 8.6 MG TABLET PO SCH ×2 (08:38→19:32)
[2021-05-20] MEDS: lamoTRIgine 100 MG TABLET. PO SCH ×2 (08:38→19:33)
[2021-05-20] MEDS: ACETAMINOPHEN 325 MG TABLET PO PRN ×2 (10:29→17:17)
--- NOTE | 2021-05-20 12:55 | PN ---
DATE: 05/20/2021 SUBJECTIVE: The patient was seen today, met with the staff, chart reviewed. The patient continues to show improvement, still withdrawn, having some psychomotor retardation. No tremors, still slow mentation. No overt psychotic symptoms. The patient has denied of having any auditory hallucinations at this time. The patient also having difficulty with concentration and thinking. Also, attention seeking. OBSERVATION: VITAL SIGNS: Temperature 98.8, blood pressure 105/68, pulse 73, respirations 18, O2 sat 94%. GENERAL: Slept about 7 hours last night. The patient's appetite normal. LABORATORY DATA: The patient's lab reviewed. CURRENT MEDICATIONS: The patient's medications include Celexa 40 mg daily, Seroquel 300 mg at night, Lamictal 200 mg twice a day. The patient is also on BuSpar 20 mg 3 times daily and clonazepam 0.5 mg twice a day. She is not having any side effects to medications. ASSESSMENT: 1. Major depressive disorder with psychotic features. 2. Psychotic disorder, unspecified. PLAN: To continue with treatment. LENGTH OF STAY: Three days. Awaiting for placement. JOAQUIN DR: Precious TID: [id number]
[2021-05-20] MEDS: QUEtiapine 100 MG TABLET. PO SCH ×2 (14:03→19:31)
--- NOTE | 2021-05-20 14:51 | NUR ---
Nursing note: Patient is in dinning room for morning medication & assessment. He was compliant with am medications taken whole. He is alert and oriented X4, calm, pleasant, & cooperative. He walks independently with walker. Patient in room in the morning with kaylie, afternoon he went to day room. He denies AH, HI, or self harm thoughts. He reports 6/10 head pain, PRN given per order. He is currently in day room. Will continue to monitor.
[2021-05-20 15:39] VITALS: BP_SYST 112; BP_DIAS 70; BP_DIAS 71
[2021-05-20] MEDS: ATORVASTATIN CALCIUM 20 MG TABLET PO SCH (19:32)
--- NOTE | 2021-05-21 01:59 | PN ---
DATE: 05/19/2021 SUBJECTIVE: The patient denies any new medical or neurological complaints. The patient stated he has noticed a decreased frequency and intensity of the hallucinations. He eats and drinks well. He uses a walker for ambulation without assistance. He denies increased tremor or rigidity of his upper or lower extremities. OBJECTIVE: GENERAL: Well-developed, well-nourished male in no acute distress. VITAL SIGNS: Blood pressure 112/73, respiratory rate 16, pulse is 72, temperature 98.2, oxygen saturation 96% on room air. HEENT: Normocephalic, atraumatic, otherwise unremarkable. NECK: Supple, negative for carotid bruit, lymphadenopathy or thyromegaly. LUNGS: Clear to A and P. CARDIOVASCULAR: Regular rate and rhythm, normal S1, S2. There is no S3, S4 or murmur. ABDOMEN: Soft. Bowel sounds positive. EXTREMITIES: Negative for cyanosis, clubbing or pedal edema. NEUROLOGIC: Mental status: The patient is alert and oriented x 2. The speech is fluent. There is no language dysfunction. Memory, judgment and abstracting thinking are fair. The patient denies hallucination or delusion. Cranial nerves are intact. Motor examination revealed no focal or muscle bulk wasting. The strength is 4/5 throughout. Sensory examination revealed normal pinprick and light touch senses throughout. Deep tendon reflexes were symmetric and active without pathologic responses. Gait: The patient uses a walker for ambulation. LABORATORY DATA: CBC revealed blood cells of 6.4 thousand, hemoglobin 14.6, hematocrit 43, platelet count 192,000. Chemistry revealed sodium of 145, potassium 3.9, chloride 109, CO2 of 26, BUN 14, creatinine 0.9, glucose 113, calcium 8.6. Liver enzymes are normal. IMPRESSION: 1. Longstanding history of Parkinson disease -- stable. 2. Intermittent auditory hallucinations -- improved after cutting back on carbidopa/levodopa doses to b.i.d. 3. Multiple medical problems include hypertension, hyperlipidemia, diabetes mellitus and gastroesophageal reflux disease. 4. Multiple psychiatric problems include major depression and anxiety disorders. RECOMMENDATIONS: Continue with current medical and psychiatric care. The patient is neurologically stable. LANEY DR: Yeni TID: [id number]
[2021-05-21 05:49] VITALS: BP 105/68
[2021-05-21] MEDS: busPIRone 10 MG TABLET. PO SCH ×3 (08:25→19:57)
[2021-05-21] MEDS: metFORMIN 500 MG TABLET PO SCH (08:25)
[2021-05-21] MEDS: LUBIPROSTONE 24 MCG CAPSULE PO SCH ×2 (08:25→16:20)
[2021-05-21] MEDS: OMEGA-3 FATTY ACIDS/FISH OIL 1,000 MG CAPSULE. PO SCH (08:26)
[2021-05-21] MEDS: CHOLECALCIFEROL (VITAMIN D3) 1,000 UNIT TABLET PO SCH (08:26)
[2021-05-21] MEDS: LISINOPRIL 2.5 MG TABLET PO SCH (08:26)
[2021-05-21] MEDS: clonazePAM 0.5 MG TABLET PO SCH ×2 (08:26→19:55)
[2021-05-21] MEDS: CARBIDOPA/LEVODOPA 25/100MG TABLET PO SCH ×2 (08:27→19:56)
[2021-05-21] MEDS: lamoTRIgine 100 MG TABLET. PO SCH ×2 (08:27→19:56)
[2021-05-21] MEDS: QUEtiapine 50 MG TABLET. PO SCH (08:27)
[2021-05-21] MEDS: FOLIC ACID 1 MG TABLET PO SCH (08:27)
[2021-05-21] MEDS: ASPIRIN CHEWABLE 81 MG TABLET. PO SCH (08:27)
[2021-05-21] MEDS: FAMOTIDINE 20 MG TABLET PO SCH ×2 (08:27→19:56)
[2021-05-21] MEDS: CITALOPRAM 20 MG TABLET. PO SCH (08:27)
[2021-05-21] MEDS: SENNOSIDES 8.6 MG TABLET PO SCH ×2 (08:28→19:56)
[2021-05-21] MEDS: ACETAMINOPHEN 325 MG TABLET PO PRN (09:30)
[2021-05-21] MEDS: QUEtiapine 100 MG TABLET. PO SCH ×2 (14:00→19:57)
[2021-05-21 15:40] VITALS: BP 107/72
--- NOTE | 2021-05-21 18:30 | NUR ---
Patient has been calm, cooperative, and pleasant during this shift. He has denied hearing voices or thinking of self-harm. Patient was interactive with staff and peers. He has had continued complaints of headache and asked for prn medications in morning. Will continue to monitor and report to oncoming shift.
[2021-05-21] MEDS: ATORVASTATIN CALCIUM 20 MG TABLET PO SCH (19:56)
--- NOTE | 2021-05-21 21:18 | PN ---
DATE: 05/21/2021 SUBJECTIVE: The patient was seen today, met with the staff. Chart was reviewed and also covering for Dr. Bey. Staff reports some improvement. Patient still withdrawn and isolates himself. Denied of any visual or auditory hallucinations and no suicidal thoughts or plans. OBSERVATION: VITAL SIGNS: Temperature 97.9, blood pressure 105/68, pulse 66, respirations 18, O2 sat 93%. GENERAL: Slept about 7 hours last night. The patient's appetite normal. Patient is not having any side effects to medications. LABORATORY DATA: The patient's lab reviewed. CURRENT MEDICATIONS: The patient's current medications include Celexa 40 mg daily, Seroquel 300 mg at night, Lamictal 200 mg twice a day, BuSpar 20 mg 3 times a day and clonazepam 0.5 mg twice a day. ASSESSMENT: 1. Major depressive disorder with psychotic features. 2. Psychotic disorder, unspecified. PLAN: To continue with treatment. LENGTH OF STAY: Three days. CARLOS DR: Precious TID: [id number]
--- NOTE | 2021-05-21 23:19 | PN ---
DATE: 05/20/2021 SUBJECTIVE: The patient denies any new medical or neurological complaints. He denies any recurrent auditory or visual hallucinations for several days. He denies rigidity or tremor. OBJECTIVE: GENERAL: Well-developed, well-nourished male, not in acute distress. VITAL SIGNS: Blood pressure 112/71, respiratory rate 20, pulse is 87 and regular, temperature 97.7, oxygen saturation 95% on room air. HEENT: Normocephalic, atraumatic, otherwise unremarkable. NECK: Supple, negative for carotid bruit, lymphadenopathy or thyromegaly. LUNGS: Clear to A and P. CARDIOVASCULAR: Regular rate and rhythm, normal S1, S2. There is no S3, S4 or murmur. ABDOMEN: Soft. Bowel sounds positive. EXTREMITIES: Negative for cyanosis, clubbing or pedal edema. NEUROLOGIC: Mental status: The patient is alert and oriented x3. The speech is more fluent. There is no language dysfunction. Memory, judgment and abstracting thinking are fair. The patient denies hallucination or delusion. Cranial nerves are intact. No focal motor or sensory deficit. The strength is 4/5 throughout. Deep tendon reflexes were symmetric and active without pathologic responses. Gait: The patient uses a walker for ambulation without assistance. IMPRESSION: 1. Longstanding history of Parkinson disease -- stable. 2. Intermittent auditory hallucinations -- resolved after adjusting carbidopa/levodopa. 3. Multiple medical problems include hypertension, hyperlipidemia, diabetes mellitus and gastroesophageal reflux disease. 4. Multiple psychiatric problems including major depressions and anxiety disorders. RECOMMENDATIONS: We will continue with current medical and psychiatric care. The patient is neurologically stable. LANEY DR: Yeni TID: [id number]
[2021-05-22 05:44] VITALS: BP 100/68
[2021-05-22] MEDS: OMEGA-3 FATTY ACIDS/FISH OIL 1,000 MG CAPSULE. PO SCH (07:46)
[2021-05-22] MEDS: metFORMIN 500 MG TABLET PO SCH (07:46)
[2021-05-22] MEDS: LUBIPROSTONE 24 MCG CAPSULE PO SCH ×2 (07:47→16:04)
[2021-05-22] MEDS: FOLIC ACID 1 MG TABLET PO SCH (07:47)
[2021-05-22] MEDS: QUEtiapine 50 MG TABLET. PO SCH (07:47)
[2021-05-22] MEDS: ASPIRIN CHEWABLE 81 MG TABLET. PO SCH (07:47)
[2021-05-22] MEDS: CARBIDOPA/LEVODOPA 25/100MG TABLET PO SCH ×2 (07:48→19:49)
[2021-05-22] MEDS: SENNOSIDES 8.6 MG TABLET PO SCH ×2 (07:48→19:47)
[2021-05-22] MEDS: busPIRone 10 MG TABLET. PO SCH ×3 (07:48→19:46)
[2021-05-22] MEDS: lamoTRIgine 100 MG TABLET. PO SCH ×2 (07:49→19:46)
[2021-05-22] MEDS: clonazePAM 0.5 MG TABLET PO SCH ×2 (07:49→19:47)
[2021-05-22] MEDS: LISINOPRIL 2.5 MG TABLET PO SCH (07:49)
[2021-05-22] MEDS: CITALOPRAM 20 MG TABLET. PO SCH (07:50)
[2021-05-22] MEDS: FAMOTIDINE 20 MG TABLET PO SCH ×2 (07:50→19:48)
[2021-05-22] MEDS: CHOLECALCIFEROL (VITAMIN D3) 1,000 UNIT TABLET PO SCH (07:50)
[2021-05-22] MEDS: QUEtiapine 100 MG TABLET. PO SCH ×2 (13:36→19:48)
[2021-05-22] MEDS: ACETAMINOPHEN 325 MG TABLET PO PRN ×2 (14:26→21:00)
--- NOTE | 2021-05-22 15:28 | NUR ---
Patient spending a large amount of his day in his room, sitting in chair, listening to I-pad music and reading. Patient able to appropriately communicate his interests in watching the [employer] game at 3:30 today. Reported today is the day after Joe but could not remember what day of the week it is or my name when exiting the room. He reports his depression to be a 4 on the 10 scale. Says he just "wants to leave". He is independent in his ADLs and social on contact. No recognizable physical concerns upon assessment. Appropriately using his walker for ambulation.
--- NOTE | 2021-05-22 15:44 | NUR ---
Patient had complaint of headache at approximately 1400 hours that was a reported 7 on the 10 scale. Patient denied any additional physical complaints including chest pains, arm tingling, and blurred vision associated with the headache. UPon reassessment, the patient reported the pain to be a 5 and continued to be without additional complaint or recognizable symptoms.
[2021-05-22 15:55] VITALS: BP 97/62
[2021-05-22] MEDS: ATORVASTATIN CALCIUM 20 MG TABLET PO SCH (19:48)
--- NOTE | 2021-05-22 21:25 | PN ---
DATE: 05/22/2021 SUBJECTIVE: The patient was seen today, met with the staff. Chart reviewed and also covering for Dr. Bey. Staff reports no major behavior problems. Still withdrawn, not having any auditory hallucinations, has been compliant with the treatment. Not having any negative thoughts. OBSERVATION: Temperature 97.6, blood pressure 100/68, pulse 82, respirations 16, O2 sat 94%. Slept about 7 hours last night. LABORATORY DATA: The patient's lab reviewed. CURRENT MEDICATIONS: Include Celexa 40 mg daily, Seroquel 300 mg at night, Lamictal 200 mg twice a day, BuSpar 20 mg 3 times a day and clonazepam 0.5 mg twice a day. The patient is not having any side effects to medications. ASSESSMENT: 1. Major depressive disorder with psychotic features. 2. Psychotic disorder, unspecified. PLAN: To continue with treatment. LENGTH OF STAY: 2 days. The patient is planned for discharge tomorrow to return to [facility] in [place]. JO DR: Precious TID: [id number]
--- NOTE | 2021-05-22 21:46 | NUR ---
Patient is located in his room on assumption of care, listening to the kaylie and reading a magazine. Improved eye contact and more interactive than usual. Talked about the [employer] game and asked about discharge plans. Informed patient that social security assessor would be in tomorrow and he could direct his questions towards her, as she would have more definitive answers. He denies any current thoughts of SI/HI. Denies any hallucinations so far this shift. Stated that he had a 7/10 headache and requested PRN Tylenol with his HS meds, with good effect. He appears to be sleeping comfortably at present time. Will continue to monitor.
[2021-05-23 05:28] VITALS: BP 127/78
[2021-05-23] MEDS: OMEGA-3 FATTY ACIDS/FISH OIL 1,000 MG CAPSULE. PO SCH (07:59)
[2021-05-23] MEDS: clonazePAM 0.5 MG TABLET PO SCH ×2 (07:59→20:03)
[2021-05-23] MEDS: metFORMIN 500 MG TABLET PO SCH (08:00)
[2021-05-23] MEDS: LUBIPROSTONE 24 MCG CAPSULE PO SCH ×2 (08:00→16:31)
[2021-05-23] MEDS: CITALOPRAM 20 MG TABLET. PO SCH (08:00)
[2021-05-23] MEDS: LISINOPRIL 2.5 MG TABLET PO SCH (08:00)
[2021-05-23] MEDS: FAMOTIDINE 20 MG TABLET PO SCH ×2 (08:00→20:04)
[2021-05-23] MEDS: SENNOSIDES 8.6 MG TABLET PO SCH ×2 (08:00→20:03)
[2021-05-23] MEDS: lamoTRIgine 100 MG TABLET. PO SCH ×2 (08:00→20:03)
[2021-05-23] MEDS: QUEtiapine 50 MG TABLET. PO SCH (08:00)
[2021-05-23] MEDS: CHOLECALCIFEROL (VITAMIN D3) 1,000 UNIT TABLET PO SCH (08:00)
[2021-05-23] MEDS: FOLIC ACID 1 MG TABLET PO SCH (08:01)
[2021-05-23] MEDS: busPIRone 10 MG TABLET. PO SCH ×3 (08:01→20:03)
[2021-05-23] MEDS: CARBIDOPA/LEVODOPA 25/100MG TABLET PO SCH ×2 (08:01→20:04)
[2021-05-23] MEDS: ASPIRIN CHEWABLE 81 MG TABLET. PO SCH (08:01)
--- NOTE | 2021-05-23 12:13 | PN ---
DATE: 05/23/2021 SUBJECTIVE: The patient was seen today, met with the staff, chart reviewed. Also covering for Dr. Bey. The patient's behavior has improved. He is calm, cooperative, denies of any auditory hallucinations. The patient does not have any major physical complaints. The patient is wanting to know when he will be discharged. OBSERVATION: VITAL SIGNS: Temperature 97.7, blood pressure 127/78, pulse 79, respirations 18, O2 sat 94%. Slept about 7 hours last night. The patient's appetite improved. The patient continues to have some cogwheeling generalized rigidity, but no major problems with his gait. The patient also slow to respond to questions, also have some blunting of affect. MEDICATIONS: The patient's current medications include Celexa 40 mg daily, Seroquel 300 mg at night, Lamictal 200 mg twice a day, BuSpar 20 mg 3 times a day and clonazepam 0.5 mg twice a day. The patient is not having any side effects to medications. ASSESSMENT: 1. Major depressive disorder with psychotic features. 2. Psychotic disorder, unspecified. PLAN: To continue with treatment. LENGTH OF STAY: The patient is still awaiting for placement, is planned for discharge today. TIFFANIE DR: Precious TID: [id number]
--- NOTE | 2021-05-23 12:50 | NUR ---
BRANDAN returned call to Ermias to give him an update on pt placement. BRANDAN informed Ermias that all the places BRANDAN attempted has refused pt as they "could not meet his needs". Both parties expressed concern about [facility], the Level II facility, continuously putting off the decision on whether or not they are willing to take pt. Ermias is concerned that this is the only placement at the moment and would like more referrals to be sent out if possible. BRANDAN noted that over 10 referrals had been sent with denials but could look at a couple others as a potential catch all if requested. Ermias does not want for pt to return to his facility and noted that he will discharge pt back to his once the 30 day notice date has .
--- NOTE | 2021-05-23 13:09 | NUR ---
BRANDAN completed concurrent review with [employer]. Ermias gave an additional two days to finalize discharge plans in hopes for pt to discharge to a Level II placement.
[2021-05-23] MEDS: QUEtiapine 100 MG TABLET. PO SCH ×2 (13:46→20:03)
[2021-05-23 15:35] VITALS: BP 130/72
--- NOTE | 2021-05-23 16:01 | NUR ---
BRANDAN left a message for Pita, pt to contact BRANDAN when possible re: an update on pt.
--- NOTE | 2021-05-23 16:45 | NUR ---
BRANDAN received a call from pt , Pita, to get an update on pt and placement. Pita reports that she met with her plant assigner and they devised a letter to send back to [facility] that they are not allowed to send pt to her house as it is not a safe discharge plan and other reason. Pita is prepared to go to court and fight this as she believes pt would not be safe at home. "He would be by himself as I work. And if I can be rudolph, I'll divorce him and he'll go to a homeless senior living before I allow him to come back to this house". Pt reported understanding that sounds harsh but she has the support of her children and they all agree that pt cannot come home. [facility] will take him back or they will go to court and dispute the 30-day notice.
--- NOTE | 2021-05-23 16:55 | NUR ---
BRANDAN met with pt and explained to him that placement has not been found. Pt wants to discharge back to [facility] and SW reminded him that he was not able to return there as they have issued a 30 day notice and are working on a separate placement for pt to be. Pt continues to appear shocked by this despite SW telling him this many times before. BRANDAN did inform pt that SW would not be in on Sunday and would update him on Sunday with updates on placement.
--- NOTE | 2021-05-23 17:37 | NUR ---
Patient has been mildly anxious, cooperative, and pre-occupied with leaving during this shift. He has denied hearing voices or thinking of self-harm. Patient was interactive with staff and peers. He continues to complain of headache and asked for prn medications in morning. Patient has repeatedly asked to speak with SW relating to discharging. Will continue to monitor and report to oncoming shift.
[2021-05-23] MEDS: ATORVASTATIN CALCIUM 20 MG TABLET PO SCH (20:04)
[2021-05-23] MEDS: ACETAMINOPHEN 325 MG TABLET PO PRN (20:04)
--- NOTE | 2021-05-24 00:02 | NUR ---
Nursing Note Pt comes out at shift change to introduce himself through the window. Asked him if he needed something but he denied just wanted to let me know who he was. Meds given with tylenol for headache, pt rates headache 5 on the scale. Pt seems to be calm and cooperative this pm. No other complaints. Resting now.
[2021-05-24 05:58] VITALS: BP 116/73
--- NOTE | 2021-05-24 07:35 | PN ---
SUBJECTIVE: The patient denies any new medical or neurological complaints. He has not had any significant hallucinations in the last several days. He denies visual disturbances or headaches. OBJECTIVE: GENERAL: Well-developed, well-nourished male, in no acute distress. VITAL SIGNS: Blood pressure 127/78, respiratory rate 18, pulse 79, temperature 97.7, oxygen saturation 94% on room air. HEENT: Normocephalic, atraumatic. Otherwise, unremarkable. NECK: Supple. Negative for carotid bruit, lymphadenopathy or thyromegaly. LUNGS: Clear to A and P. CARDIOVASCULAR: Regular rate and rhythm. Normal S1, S2. There is no S3, S4 or murmur. ABDOMEN: Soft. Bowel sounds positive. EXTREMITIES: Negative for cyanosis, clubbing or pedal edema. NEUROLOGIC: Mental status: The patient is alert and oriented x 3. Speech is fluent. There is no language dysfunction. The patient recalls 2/3 immediately and after 3 minutes. Judgment and abstracting thinking are normal. The patient denies hallucination or delusion. Cranial nerves are intact. No focal motor or sensory deficit. Hearing is intact bilaterally. No focal motor or sensory deficit. Deep tendon reflexes were symmetric and active without pathology responses. Gait and coordination are normal. IMPRESSION: 1. Longstanding history of Parkinson disease -- stable. 2. Intermittent auditory hallucination, resolved with adjusting carbidopa/levodopa doses. 3. Multiple medical problems include gastroesophageal reflux disease, diabetes mellitus, hyperlipidemia, hypertension. 4. Multiple psychiatric problems include major depressions, anxiety disorders. RECOMMENDATIONS: Continue with current medical and psychiatric care. The patient is neurologically stable. MIKE/LOY/ANGEL DR: Yeni TID: [id number]
[2021-05-24] MEDS: ASPIRIN CHEWABLE 81 MG TABLET. PO SCH (08:08)
[2021-05-24] MEDS: metFORMIN 500 MG TABLET PO SCH (08:08)
[2021-05-24] MEDS: QUEtiapine 50 MG TABLET. PO SCH (08:09)
[2021-05-24] MEDS: lamoTRIgine 100 MG TABLET. PO SCH ×2 (08:09→20:00)
[2021-05-24] MEDS: FOLIC ACID 1 MG TABLET PO SCH (08:09)
[2021-05-24] MEDS: busPIRone 10 MG TABLET. PO SCH ×3 (08:09→20:01)
[2021-05-24] MEDS: CITALOPRAM 20 MG TABLET. PO SCH (08:09)
[2021-05-24] MEDS: clonazePAM 0.5 MG TABLET PO SCH ×2 (08:10→20:03)
[2021-05-24] MEDS: LUBIPROSTONE 24 MCG CAPSULE PO SCH ×2 (08:10→17:02)
[2021-05-24] MEDS: CHOLECALCIFEROL (VITAMIN D3) 1,000 UNIT TABLET PO SCH (08:10)
[2021-05-24] MEDS: FAMOTIDINE 20 MG TABLET PO SCH ×2 (08:10→20:00)
[2021-05-24] MEDS: OMEGA-3 FATTY ACIDS/FISH OIL 1,000 MG CAPSULE. PO SCH (08:10)
[2021-05-24] MEDS: CARBIDOPA/LEVODOPA 25/100MG TABLET PO SCH ×2 (08:10→20:01)
[2021-05-24] MEDS: SENNOSIDES 8.6 MG TABLET PO SCH ×2 (08:10→20:01)
[2021-05-24] MEDS: LISINOPRIL 2.5 MG TABLET PO SCH (08:10)
[2021-05-24] MEDS: ACETAMINOPHEN 325 MG TABLET PO PRN ×2 (08:32→17:02)
[2021-05-24] MEDS: QUEtiapine 100 MG TABLET. PO SCH ×2 (13:56→20:00)
[2021-05-24 16:10] VITALS: BP 110/73
[2021-05-24] MEDS: ATORVASTATIN CALCIUM 20 MG TABLET PO SCH (20:00)
--- NOTE | 2021-05-24 21:00 | NUR ---
Pt has been in his room reading [employer]. He took meds whole without issues and has been pleasant and cooperative with staff. He denies SI/HI of hallucinations and has had no behaviors.
--- NOTE | 2021-05-25 03:06 | PN ---
DATE: 05/24/2021 SUBJECTIVE: The patient was seen today, met with the staff, chart was reviewed and also covering for Dr. Bey. The patient's behavior remains the same, withdrawn with marked psychomotor retardation. He is able to walk with a walker. He frequently complains of headaches, mostly in the mornings. The patient is wanting to know when he will be discharged. OBSERVATION: VITAL SIGNS: Temperature 97.8, blood pressure 116/73, pulse 83, respirations 18, O2 sat 96%. GENERAL: Slept about 7-1/2 hours last night. The patient's appetite is fair. The patient is not having any side effects to medications. CURRENT MEDICATIONS: He is currently on Celexa 40 mg daily, Seroquel 300 mg at night, Lamictal 200 mg twice a day, BuSpar 20 mg 3 times a day and clonazepam 0.5 mg twice a day. He is not having any side effects to medications. ASSESSMENT: 1. Major depressive disorder with psychotic features. 2. Psychotic disorder, unspecified. PLAN: To continue with treatment. LENGTH OF STAY: The patient is awaiting for placement. Plan for discharge in [address] LEENA/LOY DR: Precious TID: [id number]
[2021-05-25 06:00] VITALS: BP 116/77
[2021-05-25] MEDS: metFORMIN 500 MG TABLET PO SCH (08:04)
[2021-05-25] MEDS: LUBIPROSTONE 24 MCG CAPSULE PO SCH ×2 (08:04→16:13)
[2021-05-25] MEDS: QUEtiapine 50 MG TABLET. PO SCH (08:05)
[2021-05-25] MEDS: lamoTRIgine 100 MG TABLET. PO SCH ×2 (08:05→20:10)
[2021-05-25] MEDS: LISINOPRIL 5 MG TABLET. PO SCH (08:05)
[2021-05-25] MEDS: CITALOPRAM 20 MG TABLET. PO SCH (08:05)
[2021-05-25] MEDS: FOLIC ACID 1 MG TABLET PO SCH (08:06)
[2021-05-25] MEDS: CHOLECALCIFEROL (VITAMIN D3) 1,000 UNIT TABLET PO SCH (08:06)
[2021-05-25] MEDS: ASPIRIN CHEWABLE 81 MG TABLET. PO SCH (08:06)
[2021-05-25] MEDS: FAMOTIDINE 20 MG TABLET PO SCH ×2 (08:06→20:15)
[2021-05-25] MEDS: busPIRone 10 MG TABLET. PO SCH ×3 (08:06→20:10)
[2021-05-25] MEDS: clonazePAM 0.5 MG TABLET PO SCH ×2 (08:06→20:11)
[2021-05-25] MEDS: OMEGA-3 FATTY ACIDS/FISH OIL 1,000 MG CAPSULE. PO SCH (08:06)
[2021-05-25] MEDS: CARBIDOPA/LEVODOPA 25/100MG TABLET PO SCH ×2 (08:06→20:11)
[2021-05-25] MEDS: SENNOSIDES 8.6 MG TABLET PO SCH ×2 (08:06→20:10)
[2021-05-25] MEDS: ACETAMINOPHEN 325 MG TABLET PO PRN ×2 (08:07→16:59)
--- NOTE | 2021-05-25 11:18 | NUR ---
BRANDAN attempted to contact Prem at [facility]. Staff report that he just stepped out of the building and would be back within the hour. BRANDAN left a message but would try back again if BRANDAN has not heard anything by 1300.
--- NOTE | 2021-05-25 13:17 | NUR ---
BRANDAN contacted RATNA Amaro at [facility] to find that they have made the decision to deny pt. They do not feel they can meet his needs at his facility.
--- NOTE | 2021-05-25 13:20 | NUR ---
BRANDAN informed Josh (BRANDAN) and Ermias (ED) at [facility] that [facility] has denied pt. At this time all other places have denied. BRANDAN is still waiting to hear from insurance on if they will continue coverage. If they will not, pt will have to return to [facility]. BRANDAN did reach out again to [facility] and also reached out to [facility] as they have taken a few level II and will see if they can assess pt. Once BRANDAN hears back from [facility], BRANDAN will update them on approval or denial of coverage.
[2021-05-25] MEDS: QUEtiapine 100 MG TABLET. PO SCH ×2 (14:08→20:10)
[2021-05-25 15:35] VITALS: BP 106/68
--- NOTE | 2021-05-25 17:46 | NUR ---
Patient has been mildly anxious, cooperative, and pre-occupied with talking to SW during this shift, repeatedly asking to speak with SW relating to discharging. He has denied hearing voices or thinking of self-harm. Patient was withdrawn to his room for much of the shift. He continues to complain of headache and asked for prn medications which were provided per eMAR. Will continue to monitor and report to oncoming shift.
[2021-05-25] MEDS: ATORVASTATIN CALCIUM 20 MG TABLET PO SCH (20:09)
--- NOTE | 2021-05-25 22:28 | PN ---
DATE: 05/25/2021 SUBJECTIVE: The patient was seen today, met with the staff. Chart was reviewed and also covering for Dr. Bey. Staff reports no major behavior problems. He is calm, cooperative, not having anymore auditory hallucinations. The patient denies of any other physical complaints except for occasional headaches. The patient tends to isolate himself in his room. Able to walk with a walker. Continues to show generalized weakness, some rigidity and slow gait. OBSERVATION: VITAL SIGNS: Temperature 97.9, blood pressure 116/77, pulse 74, respirations 18, O2 sat 96%. GENERAL: Slept about 8 hours last night. The patient's appetite normal. The patient is not having any other physical complaints, lab reviewed. CURRENT MEDICATIONS: The patient's current medications include BuSpar 20 mg 3 times a day, clonazepam 0.5 mg twice a day, Celexa 40 mg daily, Lamictal 200 mg b.i.d., Seroquel 100 mg daily and 300 mg at night, and also 50 mg in the morning. The patient is also on Sinemet. Denies of any side effects to medications. ASSESSMENT: Major depressive disorder with psychotic symptoms. PLAN: To continue with treatment plans. LENGTH OF STAY: 2-3 days, waiting for placement. AJITH DR: Precious TID: [id number]
--- NOTE | 2021-05-26 03:07 | NUR ---
Last evening pt was in his room listening to music on a tablet. He has been pleasant and cooperative with meds and care. He denies SI and has had no behaviors tonight.
[2021-05-26 06:05] VITALS: BP 112/73
[2021-05-26] MEDS: metFORMIN 500 MG TABLET PO SCH (07:57)
[2021-05-26] MEDS: SENNOSIDES 8.6 MG TABLET PO SCH ×2 (07:57→19:55)
[2021-05-26] MEDS: busPIRone 10 MG TABLET. PO SCH ×3 (07:57→19:55)
[2021-05-26] MEDS: QUEtiapine 50 MG TABLET. PO SCH (07:57)
[2021-05-26] MEDS: ASPIRIN CHEWABLE 81 MG TABLET. PO SCH (07:57)
[2021-05-26] MEDS: OMEGA-3 FATTY ACIDS/FISH OIL 1,000 MG CAPSULE. PO SCH (07:57)
[2021-05-26] MEDS: LUBIPROSTONE 24 MCG CAPSULE PO SCH ×2 (07:57→14:44)
[2021-05-26] MEDS: FAMOTIDINE 20 MG TABLET PO SCH ×2 (07:58→19:55)
[2021-05-26] MEDS: clonazePAM 0.5 MG TABLET PO SCH ×2 (07:58→19:54)
[2021-05-26] MEDS: CARBIDOPA/LEVODOPA 25/100MG TABLET PO SCH ×2 (07:58→19:55)
[2021-05-26] MEDS: FOLIC ACID 1 MG TABLET PO SCH (07:58)
[2021-05-26] MEDS: CITALOPRAM 20 MG TABLET. PO SCH (07:58)
[2021-05-26] MEDS: CHOLECALCIFEROL (VITAMIN D3) 1,000 UNIT TABLET PO SCH (07:58)
[2021-05-26] MEDS: LISINOPRIL 5 MG TABLET. PO SCH (07:59)
[2021-05-26] MEDS: ACETAMINOPHEN 325 MG TABLET PO PRN ×2 (08:16→14:45)
[2021-05-26] MEDS: lamoTRIgine 100 MG TABLET. PO SCH ×2 (08:16→19:54)
--- NOTE | 2021-05-26 08:53 | NUR ---
Pt appropriate this morning and absent of disruptive behaviors. Denies SI/HI/VH/AH/delusions/ at this time. He c/o 6/10 headache, PRN Acetaminophen 650 mg PO administered at his request. Pt is compliant with whole medications. Plan of care continues, will pass to next shift.
--- NOTE | 2021-05-26 11:58 | NUR ---
WEEKLY ACTIVITY THERAPY NOTE Date of Admission:05/10/21 Date of AT Assessment: 05/13 Precipitating behaviors that initiated intake and admission:Pt at [facility] X 4 days for SI HI, has had command hallucinations to kill staff and self with no plan no action. Pt needs placement in level 2 has failed at 0 facilities recently. Report from Chitra at [facility] Goal aimed: increase socialization and engagement Initial Goal: Pt will participate in at least five Activity Therapy groups per week Weekly progress towards goal: achieved,12/30 Group participation level: 1 mod, 7 full Weekly highlights: spoke with FEATHER DUSTER WINDER about horses , solved picture man puzzle and enjoyed [place] present , solved tribonds with and without clues Sunday, spoke about his bucket list and wanting to travel again Sunday, colored new years coloring pages Sunday, engaged in picture puzzles and requested music that was "easy on the soul" Sunday, listened to MARQUIS talk and guided meditation and demonstrated a few power poses Sunday Behaviors observed: calm, quiet, pleasant Plan: change goal to: Pt will participate in all Activity Therapy sessions offered Beneficial adaptations: socialization and engagement
--- NOTE | 2021-05-26 14:30 | NUR ---
Pt very repetitive and insistent about talking to SW. SW has already been notified around 1000 that he wishes to meet with her. Pt keeps asking this nurse to remind SW. He also c/o 6/ headache, PRN Acetaminophen 650 mg PO administered at his request.
[2021-05-26] MEDS: QUEtiapine 100 MG TABLET. PO SCH ×2 (14:44→19:55)
[2021-05-26 15:06] VITALS: BP 125/72
--- NOTE | 2021-05-26 16:20 | NUR ---
Treatment team update: Pt is eating 100% of meals and sleeping on average 7.5 hours per night. Pt is calm, cooperative and deny all HI/SI and hallucinations. Pt insistently asks to speak to SW about discharging; despite SW informing pt that placement has not been found for him at this time. Pt has also been informed that [facility] does not feel they are meeting pt needs and having him discharged to a Level II facility would be most appropriate. Pt is alert and oriented x 4; but acts surprise when hearing about discharge plans. Pt is attending groups but can at times be withdrawn to his room and away from peers. BRANDAN will continue to work with all parties involved on placement options for Level II's for pt.
--- NOTE | 2021-05-26 16:55 | NUR ---
BRANDAN met with pt and told him that SW scheduled a Zoom meeting for Sunday at 1300. It was for a Level II placement in [place], [place]. Pt questioned where that was at; however, BRANDAN was not able to say. BRANDAN informed pt that it was more of an informational meeting in which they want to get to know him and would allow for him to ask questions. Pt questioned when he would discharge and SW noted that it would be dependent on the Zoom meeting and whether or not they agreed to take him. BRANDAN will see pt on Sunday at 1300.
[2021-05-26] MEDS: ATORVASTATIN CALCIUM 20 MG TABLET PO SCH (19:54)
--- NOTE | 2021-05-27 03:06 | PN ---
DATE: 05/26/2021 SUBJECTIVE: The patient was seen today, met with the staff. Chart was reviewed and also participated in the treatment review conference today. Staff reports continued improvement, still withdrawn, marked constriction of affect, able to walk with a walker. He is not presenting with any physical complaints now, also denies of having any auditory hallucinations. OBSERVATION: VITAL SIGNS: Stable. The patient is sleeping better. Appetite improved. CURRENT MEDICATIONS: Include Seroquel 100 mg daily, Celexa 40 mg daily, Seroquel 300 mg at night, clonazepam 0.5 mg twice a day and BuSpar 20 mg 3 times a day. The patient is not having any side effects to medications. ASSESSMENT: Major depressive disorder with psychotic symptoms. PLAN: To continue with treatment. LENGTH OF STAY: Waiting for level 2 placement. LEENA/JADEN/MARCY DR: LEENA/parmjit TID: [id number]
--- NOTE | 2021-05-27 03:20 | NUR ---
Pt now awake and coughing bringing up thick white mucous, breath sounds coarse bilaterally throughout. VSS temp 99.0 skin is hot and dryand reports a sore throat.
--- NOTE | 2021-05-27 03:31 | NUR ---
Last evening pt sat in his room reading a newspaper. He has been pleasant and cooperative with staff and took meds whole. He denies HI, SI hallucinations or delusions and has had no behaviors tonight.
--- NOTE | 2021-05-27 05:06 | PN ---
DATE: 05/25/2021 SUBJECTIVE: The patient denies any new medical or neurological complaints. He denies any hallucinations or delusions. OBJECTIVE: GENERAL: A well-developed, well-nourished male in no acute distress. VITAL SIGNS: Blood pressure 105/68, respiratory rate 18, pulse is 96, temperature 97.1, oxygen saturation 94% on room air. HEENT: Normocephalic, atraumatic, otherwise unremarkable. NECK: Supple. Negative for carotid bruit, lymphadenopathy or thyromegaly. LUNGS: Clear to A and P. CARDIOVASCULAR: Regular rate and rhythm. Normal S1, S2. There is no S3, S4 or murmur. ABDOMEN: Soft. Bowel sounds positive. EXTREMITIES: Negative for cyanosis, clubbing or pedal edema. NEUROLOGICAL: Mental status: The patient is alert and oriented x 3. Speech is clear. There is no language dysfunction. The patient recalled 2/3 immediately and after 1 and 3 minutes. Judgment and abstracting thinking are normal. The patient denies hallucination or delusion. Cranial nerves are intact. No focal motor or sensory deficits. Deep tendon reflexes were symmetric and active without pathology responses. Gait and coordination were normal. IMPRESSION: 1. Longstanding history of Parkinson's disease -- stable. 2. Intermittent auditory hallucinations -- resolved after adjusting carbidopa/levodopa doses. 3. Multiple medical problems include diabetes mellitus, hypertension, hyperlipidemia and gastroesophageal reflux disease. 4. Multiple psychiatric problems including generalized anxiety disorder and major depressions. RECOMMENDATIONS: We will continue with current medical and psychiatric care. The patient is neurologically stable. MIKE/ZACH/ANGEL DR: Yeni TID: [id number]
[2021-05-27 06:00] VITALS: BP 126/81
[2021-05-27] MEDS: metFORMIN 500 MG TABLET PO SCH (08:01)
[2021-05-27] MEDS: busPIRone 10 MG TABLET. PO SCH ×3 (08:01→20:06)
[2021-05-27] MEDS: clonazePAM 0.5 MG TABLET PO SCH ×2 (08:02→20:07)
[2021-05-27] MEDS: CARBIDOPA/LEVODOPA 25/100MG TABLET PO SCH ×2 (08:02→20:06)
[2021-05-27] MEDS: SENNOSIDES 8.6 MG TABLET PO SCH ×2 (08:02→20:06)
[2021-05-27] MEDS: LUBIPROSTONE 24 MCG CAPSULE PO SCH ×2 (08:02→14:44)
[2021-05-27] MEDS: FOLIC ACID 1 MG TABLET PO SCH (08:02)
[2021-05-27] MEDS: QUEtiapine 50 MG TABLET. PO SCH (08:02)
[2021-05-27] MEDS: lamoTRIgine 100 MG TABLET. PO SCH ×2 (08:02→20:06)
[2021-05-27] MEDS: ASPIRIN CHEWABLE 81 MG TABLET. PO SCH (08:02)
[2021-05-27] MEDS: OMEGA-3 FATTY ACIDS/FISH OIL 1,000 MG CAPSULE. PO SCH (08:02)
[2021-05-27] MEDS: FAMOTIDINE 20 MG TABLET PO SCH ×2 (08:02→20:05)
[2021-05-27] MEDS: CHOLECALCIFEROL (VITAMIN D3) 1,000 UNIT TABLET PO SCH (08:02)
[2021-05-27] MEDS: LISINOPRIL 5 MG TABLET. PO SCH (08:03)
[2021-05-27] MEDS: CITALOPRAM 20 MG TABLET. PO SCH (08:04)
--- NOTE | 2021-05-27 08:50 | NUR ---
Pt appropriate on the unit and absent of disruptive behaviors. Flat affect and speaks in a low whisper. He is compliant with whole medications. Denies SI/HI/VH/AH/delusions/pain when asked. He remains fixated on speaking with SW and asks once again to speak with her. He did have an opportunity to visit with her yesterday 05/26/21 at approx 1630, however he wishes to speak with her again today. Plan of care continues, will pass to next shift.
[2021-05-27] MEDS: QUEtiapine 100 MG TABLET. PO SCH ×2 (14:44→20:06)
[2021-05-27 15:43] VITALS: BP 126/77
[2021-05-27] MEDS: ACETAMINOPHEN 325 MG TABLET PO PRN (16:45)
--- NOTE | 2021-05-27 16:46 | NUR ---
Pt c/o 01/04 headache. PRN Acetaminophen 650 mg PO administered at his request.
[2021-05-27] MEDS: ATORVASTATIN CALCIUM 20 MG TABLET PO SCH (20:06)
--- NOTE | 2021-05-27 22:06 | NUR ---
Nursing Note The patient was located in his room for his assessment and medication pass. The patient was alert to self, date and location. The patient was interactive with staff during his assessment and was compliant with his medications taking them whole. The patient is currently sleeping in his room.
--- NOTE | 2021-05-27 23:01 | PN ---
DATE: 05/27/2021 SUBJECTIVE: The patient was seen today, met with the staff. Chart was reviewed and also covering for Dr. Bey. Staff reports he is obsessed about his discharge plans and constantly knocking at the nurses' station and having difficulty accepting the explanations for the delay for the discharge. [facility] and he is on the waiting list, going to level 2 placement. OBSERVATION: VITAL SIGNS: Temperature 96.8, blood pressure 126/81, pulse 87, respirations 20, O2 sat 96%. GENERAL: Slept about 7 hours last night. The patient's appetite improved. CURRENT MEDICATIONS: The patient's current medications include Seroquel 100 mg daily, Celexa 40 mg daily, Seroquel 300 mg at night, clonazepam 0.5 mg twice a day and BuSpar 20 mg 3 times a day. The patient is not having any side effects to medications. The patient has some psychomotor retardation, walks with a walker, slow, but steady gait. LABORATORY DATA: The patient's lab reviewed. ASSESSMENT: Major depressive disorder with psychotic symptoms. PLAN: To continue with the treatment. LENGTH OF STAY: The patient is awaiting for placement, most likely next week. LEONIE DR: Precious TID: [id number]
[2021-05-28 06:02] VITALS: BP 104/68
[2021-05-28] MEDS: FAMOTIDINE 20 MG TABLET PO SCH ×2 (08:19→20:04)
[2021-05-28] MEDS: busPIRone 10 MG TABLET. PO SCH ×3 (08:19→20:04)
[2021-05-28] MEDS: CITALOPRAM 20 MG TABLET. PO SCH (08:19)
[2021-05-28] MEDS: QUEtiapine 50 MG TABLET. PO SCH (08:19)
[2021-05-28] MEDS: FOLIC ACID 1 MG TABLET PO SCH (08:20)
[2021-05-28] MEDS: lamoTRIgine 100 MG TABLET. PO SCH ×2 (08:20→20:04)
[2021-05-28] MEDS: SENNOSIDES 8.6 MG TABLET PO SCH ×2 (08:20→20:04)
[2021-05-28] MEDS: CHOLECALCIFEROL (VITAMIN D3) 1,000 UNIT TABLET PO SCH (08:20)
[2021-05-28] MEDS: LISINOPRIL 5 MG TABLET. PO SCH (08:20)
[2021-05-28] MEDS: CARBIDOPA/LEVODOPA 25/100MG TABLET PO SCH ×2 (08:20→20:04)
[2021-05-28] MEDS: OMEGA-3 FATTY ACIDS/FISH OIL 1,000 MG CAPSULE. PO SCH (08:20)
[2021-05-28] MEDS: clonazePAM 0.5 MG TABLET PO SCH ×2 (08:20→20:06)
[2021-05-28] MEDS: LUBIPROSTONE 24 MCG CAPSULE PO SCH ×2 (08:21→16:14)
[2021-05-28] MEDS: metFORMIN 500 MG TABLET PO SCH (08:21)
[2021-05-28] MEDS: ASPIRIN CHEWABLE 81 MG TABLET. PO SCH (08:21)
[2021-05-28] MEDS: QUEtiapine 100 MG TABLET. PO SCH ×2 (14:08→20:06)
--- NOTE | 2021-05-28 14:16 | NUR ---
Nursing note: Patient is in dinning room for morning medication & assessment. He was compliant with medications taken whole. He is alert and oriented X4, calm, pleasant, & cooperative. He walks independently with walker. Patient in day room on and off through the day. He denies AH, HI, or self harm thoughts. He denies pain/discomfort. He is currently in day room. Will continue to monitor.
[2021-05-28 15:53] VITALS: BP 100/68
[2021-05-28] MEDS: ACETAMINOPHEN 325 MG TABLET PO PRN (17:50)
[2021-05-28] MEDS: ATORVASTATIN CALCIUM 20 MG TABLET PO SCH (20:06)
--- NOTE | 2021-05-28 22:29 | NUR ---
Pt located in his room sitting calmly reading a magazine and listening to a kaylie. Pt pleasant and cooperative. Compliant with whole medications. Pt currently sleeping.
[2021-05-29 06:30] VITALS: BP 103/66
[2021-05-29] MEDS: OMEGA-3 FATTY ACIDS/FISH OIL 1,000 MG CAPSULE. PO SCH (08:18)
[2021-05-29] MEDS: ACETAMINOPHEN 325 MG TABLET PO PRN ×2 (08:18→16:12)
[2021-05-29] MEDS: SENNOSIDES 8.6 MG TABLET PO SCH ×2 (08:18→20:18)
[2021-05-29] MEDS: CARBIDOPA/LEVODOPA 25/100MG TABLET PO SCH ×2 (08:19→20:18)
[2021-05-29] MEDS: CHOLECALCIFEROL (VITAMIN D3) 1,000 UNIT TABLET PO SCH (08:19)
[2021-05-29] MEDS: busPIRone 10 MG TABLET. PO SCH ×3 (08:19→20:19)
[2021-05-29] MEDS: FAMOTIDINE 20 MG TABLET PO SCH ×2 (08:19→20:18)
[2021-05-29] MEDS: lamoTRIgine 100 MG TABLET. PO SCH ×2 (08:19→20:19)
[2021-05-29] MEDS: LUBIPROSTONE 24 MCG CAPSULE PO SCH ×2 (08:19→16:10)
[2021-05-29] MEDS: ASPIRIN CHEWABLE 81 MG TABLET. PO SCH (08:19)
[2021-05-29] MEDS: clonazePAM 0.5 MG TABLET PO SCH ×2 (08:19→20:20)
[2021-05-29] MEDS: CITALOPRAM 20 MG TABLET. PO SCH (08:19)
[2021-05-29] MEDS: metFORMIN 500 MG TABLET PO SCH (08:19)
[2021-05-29] MEDS: QUEtiapine 50 MG TABLET. PO SCH (08:19)
[2021-05-29] MEDS: FOLIC ACID 1 MG TABLET PO SCH (08:19)
[2021-05-29] MEDS: LISINOPRIL 5 MG TABLET. PO SCH (08:20)
[2021-05-29 08:22] LABS: BASO % 1 % (0-3); EOS # 0.1 x10^3/uL (0.0-0.7); EOS % 2 % (0-3); HEMATOCRIT 45.8 % (39.0-53.0); HEMOGLOBIN 15.7 g/dL (13.0-17.5); LYMPH # 1.7 x10^3/uL (1.0-4.8); LYMPH % 28 % (24-48); MEAN CORPUSCULAR HEMOGLOBIN 32 pg (25-35); MEAN CORPUSCULAR HGB CONC 34 g/dL (31-37); MEAN CORPUSCULAR VOLUME 93 fL (79-100); MONO # 0.4 x10^3/uL (0.0-1.1); MONO % 7 % (0-9); NEUT # 3.8 x10^3uL (1.8-7.7); NEUT % 63 % (31-73); PLATELET COUNT 186 x10^3/uL (140-400); RED BLOOD COUNT 4.92 x10^6/uL (4.30-5.70); RED CELL DISTRIBUTION WIDTH 13.6 % (11.5-14.5)
[2021-05-29 08:29] LABS: ALBUMIN/GLOBULIN RATIO 1.3 (1.0-1.7); CALCIUM 8.6 mg/dL (8.5-10.1); CREATININE 0.8 mg/dL (0.7-1.3); GFR 98.6; TOTAL BILIRUBIN 0.5 mg/dL (0.2-1.0); TOTAL PROTEIN 7.1 g/dL (6.4-8.2)
[2021-05-29] MEDS: QUEtiapine 100 MG TABLET. PO SCH ×2 (13:53→20:19)
[2021-05-29 15:58] VITALS: BP 122/77
--- NOTE | 2021-05-29 18:33 | PN ---
DATE: 05/28/2021 SUBJECTIVE: The patient was seen on 05/28/2021 via telehealth, discussed with the staff and chart reviewed, and this is a late entry. The patient continues to show improvement, still withdrawn. Awaiting for placement. OBSERVATION: VITAL SIGNS: 97.2, blood pressure 104/68, pulse 81, respirations 16, O2 sat 94%. Slept about 7 hours last night. GENERAL: The patient's appetite normal. The patient has no other medical complaints. CURRENT MEDICATIONS: The patient's current medications include Seroquel 100 mg daily, Celexa 40 mg daily, Seroquel 300 mg at night, clonazepam 0.5 mg twice a day and BuSpar 20 mg 3 times a day. The patient denies of any side effects to medications. LABORATORY DATA: The patient's lab reviewed. ASSESSMENT: Major depressive disorder with psychotic features. PLAN: To continue treatment. LENGTH OF STAY: Three days. LEENA/QUANG DR: Precious TID: [id number]
--- NOTE | 2021-05-29 18:36 | PN ---
DATE: 05/29/2021 SUBJECTIVE: The patient was seen today, met with the staff, chart reviewed, and also covering for Dr. Bey. The patient's behavior remains the same. Staff reports no major behavior problems. OBSERVATION: VITAL SIGNS: Temperature 98.1, blood pressure 103/60, pulse 76, respirations 16, O2 sat 99%. Slept about 7-1/2 hours last night. GENERAL: The patient's appetite normal. The patient is not having any physical complaints. CURRENT MEDICATIONS: The patient's current medications same, no change, not having any major side effects. LABORATORY DATA: The patient's lab reviewed. ASSESSMENT: Major depressive disorder with psychotic symptoms. PLAN: To continue with treatment. LENGTH OF STAY: Two to three days. Awaiting for placement. LEENA/QUANG DR: Precious TID: [id number]
[2021-05-29] MEDS: ATORVASTATIN CALCIUM 20 MG TABLET PO SCH (20:18)
--- NOTE | 2021-05-29 23:02 | NUR ---
Pt located in his room this evening reading a magazine and listening to the kaylie. Pt pleasant and calm. Denies SI. Compliant with whole medications. Pt currently sleeping.
[2021-05-30 06:14] VITALS: BP 133/81
[2021-05-30] MEDS: CITALOPRAM 20 MG TABLET. PO SCH (08:06)
[2021-05-30] MEDS: FOLIC ACID 1 MG TABLET PO SCH (08:07)
[2021-05-30] MEDS: lamoTRIgine 100 MG TABLET. PO SCH ×2 (08:07→20:30)
[2021-05-30] MEDS: metFORMIN 500 MG TABLET PO SCH (08:07)
[2021-05-30] MEDS: ASPIRIN CHEWABLE 81 MG TABLET. PO SCH (08:07)
[2021-05-30] MEDS: QUEtiapine 50 MG TABLET. PO SCH (08:07)
[2021-05-30] MEDS: SENNOSIDES 8.6 MG TABLET PO SCH ×2 (08:07→20:30)
[2021-05-30] MEDS: CARBIDOPA/LEVODOPA 25/100MG TABLET PO SCH ×2 (08:07→20:30)
[2021-05-30] MEDS: CHOLECALCIFEROL (VITAMIN D3) 1,000 UNIT TABLET PO SCH (08:07)
[2021-05-30] MEDS: busPIRone 10 MG TABLET. PO SCH ×3 (08:07→20:30)
[2021-05-30] MEDS: LISINOPRIL 5 MG TABLET. PO SCH (08:07)
[2021-05-30] MEDS: OMEGA-3 FATTY ACIDS/FISH OIL 1,000 MG CAPSULE. PO SCH (08:07)
[2021-05-30] MEDS: clonazePAM 0.5 MG TABLET PO SCH ×2 (08:07→20:31)
[2021-05-30] MEDS: FAMOTIDINE 20 MG TABLET PO SCH ×2 (08:08→20:29)
[2021-05-30] MEDS: ACETAMINOPHEN 325 MG TABLET PO PRN ×3 (08:08→20:31)
[2021-05-30] MEDS: LUBIPROSTONE 24 MCG CAPSULE PO SCH ×2 (08:08→16:55)
--- NOTE | 2021-05-30 13:10 | NUR ---
BRANDAN met with pt to complete a Zoom meeting for potential placement at [facility] in [place], [place]. Pt was A/O x 4 and was able to answer all the questions asked by the C.O.D. Audit Clerk, Mary. Pt asked multiple questions surrounding whether he would have a roommate, access to doctors, phone calls/visits, etc. BRANDAN did write the information down in pt book as requested. BRANDAN informed Mary that pt would be able to discharge whenever, in the event that they were able to take pt. Pt then stated "no, that is part of my stipulation. My son is going to pick me up and take me to see my mother in [place]. She isn't doing well and I need to see her. If you can't take me on Sunday, then I don't want to go to your place". BRANDAN informed pt that was not his decision to make. He was not able to dictate when he can leave. BRANDAN informed Mary that pt has a DPOA and noted that pt check does go to [facility]. After the Zoom call was completed, pt looked at BRANDAN and stated "I'm my own person and I'm telling you, if they can't take me on Sunday then the deal is off. I'm not going there". BRANDAN explained to pt that the decision would not be left up to him. Facilities let us know when they can take someone and then we figure it out from there. It may be that he will go or Sunday and would have to deal with that. BRANDAN questioned why pt felt that he was able to make that decision and he stated as he walked away and out of the room from BRANDAN, "because I can". BRANDAN will plan to follow up with all parties involved.
--- NOTE | 2021-05-30 13:45 | NUR ---
BRANDAN left a message for Pita, pt , to contact BRANDAN when possible to update her re: the Zoom meeting.
[2021-05-30] MEDS: QUEtiapine 100 MG TABLET. PO SCH ×2 (14:13→20:30)
--- NOTE | 2021-05-30 14:20 | NUR ---
BRANDAN received call back from pt , Pita, to update her about the Zoom call. SW explained that it appeared that pt assessment went well. They did ask for more information from SW and SW would get that sent over. BRANDAN noted that pt informed the ED that if they couldn't accept him on Sunday then he would not go. He noted that his mother is sick and his son would be picking him up so he could see her. Pita denies this to be the case. She is not sure if her son has even called to speak with pt, but she will see if he did and make sure he understands there are some things he must be careful when telling pt. Pita reports that they will not be picking pt up and when the facility is able to accept pt, she wants him discharged. BRANDAN will continue to follow up with Pita on placement and discharge.
--- NOTE | 2021-05-30 15:51 | NUR ---
Nursing note: Patient is in dinning room for morning medication & assessment. He was compliant with medications taken whole. He is alert and oriented X4, calm, pleasant, & cooperative. He walks independently with walker. Patient in day room on and off through the day. He denies AH, HI, or self harm thoughts. He denies pain/discomfort. He had a phone interview with a potential placement that did not go well. After a phone call with he was tearful in his room. He is currently in day room. Will continue to monitor.
[2021-05-30 16:24] VITALS: BP 133/79
[2021-05-30] MEDS: ATORVASTATIN CALCIUM 20 MG TABLET PO SCH (20:30)
--- NOTE | 2021-05-30 21:33 | PN ---
DATE: 05/30/2021 SUBJECTIVE: The patient was seen today, met with the staff, chart reviewed. The patient is still upset because he is not able to find a place to go back to. Apparently, the social service is working on the discharge plan. Apparently, he had assessment by phone with one of the nursing facility. OBSERVATION: VITAL SIGNS: Temperature 96.2, blood pressure 183/87, pulse 91, respirations 18, O2 sat 95%. GENERAL: Slept about 7 hours last night. The patient's appetite normal. CURRENT MEDICATIONS: Include Seroquel 100 mg daily, Celexa 40 mg daily, and Seroquel 50 mg daily. The patient is also on Seroquel 300 mg at night and Lamictal 200 mg twice a day, Klonopin 0.5 mg twice a day, and BuSpar 20 mg 3 times a day. LABORATORY DATA: The patient's lab reviewed. The patient is not having any side effects to medications. ASSESSMENT: Major depressive disorder with psychotic symptoms. PLAN: To continue with treatment. LENGTH OF STAY: 2-3 days. Awaiting for placement. AJITH DR: Precious TID: [id number]
--- NOTE | 2021-05-30 22:46 | NUR ---
Pt located in his room this evening. Pt calm and cooperative. Compliant with whole medications. PRN Tylenol administered per pt request. Pt stated that he had a phone interview with a facility in [facility]. Pt stated the phone call didn't go well because he got upset. Pt then stated "oh well, it is what it is." Pt currently sleeping.
[2021-05-31 06:10] VITALS: BP 99/64
[2021-05-31] MEDS: CITALOPRAM 20 MG TABLET. PO SCH (08:18)
[2021-05-31] MEDS: OMEGA-3 FATTY ACIDS/FISH OIL 1,000 MG CAPSULE. PO SCH (08:18)
[2021-05-31] MEDS: ASPIRIN CHEWABLE 81 MG TABLET. PO SCH (08:18)
[2021-05-31] MEDS: clonazePAM 0.5 MG TABLET PO SCH ×2 (08:18→20:03)
[2021-05-31] MEDS: lamoTRIgine 100 MG TABLET. PO SCH ×2 (08:18→20:03)
[2021-05-31] MEDS: metFORMIN 500 MG TABLET PO SCH (08:19)
[2021-05-31] MEDS: busPIRone 10 MG TABLET. PO SCH ×3 (08:19→20:03)
[2021-05-31] MEDS: FOLIC ACID 1 MG TABLET PO SCH (08:19)
[2021-05-31] MEDS: LUBIPROSTONE 24 MCG CAPSULE PO SCH ×2 (08:19→16:43)
[2021-05-31] MEDS: QUEtiapine 50 MG TABLET. PO SCH (08:19)
[2021-05-31] MEDS: CARBIDOPA/LEVODOPA 25/100MG TABLET PO SCH ×2 (08:19→20:03)
[2021-05-31] MEDS: CHOLECALCIFEROL (VITAMIN D3) 1,000 UNIT TABLET PO SCH (08:19)
[2021-05-31] MEDS: SENNOSIDES 8.6 MG TABLET PO SCH ×2 (08:20→20:03)
[2021-05-31] MEDS: ACETAMINOPHEN 325 MG TABLET PO PRN ×3 (08:20→20:04)
[2021-05-31] MEDS: FAMOTIDINE 20 MG TABLET PO SCH ×2 (08:20→20:03)
[2021-05-31] MEDS: LISINOPRIL 5 MG TABLET. PO SCH (08:21)
[2021-05-31] MEDS: QUEtiapine 100 MG TABLET. PO SCH ×2 (14:28→20:03)
--- NOTE | 2021-05-31 15:24 | NUR ---
Nursing note: Patient is in dinning room for morning medication & assessment. He was compliant with medications taken whole. He is alert and oriented X4, calm, pleasant, & cooperative. He walks independently with walker. Patient denies AH, HI, or self harm thoughts. He reports 6/10 headache, PRN given per order. He is currently in his bed room. Will continue to monitor.
[2021-05-31 15:39] VITALS: BP 109/72
[2021-05-31] MEDS: ATORVASTATIN CALCIUM 20 MG TABLET PO SCH (20:03)
--- NOTE | 2021-05-31 21:17 | NUR ---
Nursing Note Pt in room listening to jose juan reese. Pleasant and cooperative complains of frontal headache. Tylenol given.
--- NOTE | 2021-05-31 21:57 | PN ---
DATE: 05/31/2021 SUBJECTIVE: The patient was seen today, met with the staff, chart reviewed. Staff reports that he was not happy with the assessment for placement. Apparently, the staff came to talk to him with regard to his admission to that facility, but the patient apparently walked out of the meeting getting upset. The patient states he wants to be closer to his family in [place], [place]. The patient is still anxious, irritable, angry at times and appears depressed, but no negative thoughts. OBSERVATION: VITAL SIGNS: Temperature 97.5, blood pressure 99/64, pulse 87, respirations 18, O2 sat 96%. GENERAL: Slept about 7.5 hours last night. The patient's appetite is fair. The patient is not having any other physical complaints. LABORATORY DATA: The patient's lab reviewed, CURRENT MEDICATIONS: Seroquel 100 mg daily, Celexa 40 mg daily and Seroquel 300 mg at night. He is also on Lamictal 200 mg twice a day, Klonopin 0.5 mg twice a day and BuSpar 20 mg 3 times a day. The patient is not exhibiting any side effects to medications. ASSESSMENT: Major depressive disorder with psychotic symptoms. PLAN: To continue with treatment. LENGTH OF STAY: 2-3 days. Still awaiting for placement. JESUS DR: Precious TID: [id number]
[2021-06-01 06:27] VITALS: BP 112/73
[2021-06-01] MEDS: CITALOPRAM 20 MG TABLET. PO SCH (08:24)
[2021-06-01] MEDS: LUBIPROSTONE 24 MCG CAPSULE PO SCH ×2 (08:25→13:58)
[2021-06-01] MEDS: QUEtiapine 50 MG TABLET. PO SCH (08:25)
[2021-06-01] MEDS: FAMOTIDINE 20 MG TABLET PO SCH ×2 (08:25→20:20)
[2021-06-01] MEDS: ASPIRIN CHEWABLE 81 MG TABLET. PO SCH (08:25)
[2021-06-01] MEDS: FOLIC ACID 1 MG TABLET PO SCH (08:25)
[2021-06-01] MEDS: metFORMIN 500 MG TABLET PO SCH (08:25)
[2021-06-01] MEDS: clonazePAM 0.5 MG TABLET PO SCH ×2 (08:25→20:19)
[2021-06-01] MEDS: CARBIDOPA/LEVODOPA 25/100MG TABLET PO SCH ×2 (08:25→20:19)
[2021-06-01] MEDS: lamoTRIgine 100 MG TABLET. PO SCH ×2 (08:25→20:19)
[2021-06-01] MEDS: OMEGA-3 FATTY ACIDS/FISH OIL 1,000 MG CAPSULE. PO SCH (08:25)
[2021-06-01] MEDS: SENNOSIDES 8.6 MG TABLET PO SCH ×2 (08:25→20:19)
[2021-06-01] MEDS: busPIRone 10 MG TABLET. PO SCH ×3 (08:25→20:19)
[2021-06-01] MEDS: CHOLECALCIFEROL (VITAMIN D3) 1,000 UNIT TABLET PO SCH (08:25)
[2021-06-01] MEDS: LISINOPRIL 5 MG TABLET. PO SCH (08:26)
--- NOTE | 2021-06-01 10:35 | NUR ---
BRANDAN met with pt per his request to see if the facility is still considering him. SW informed him that they are considering him and asked for more information. BRANDAN just faxed it over this morning and hopes to find out soon re: discharge. BRANDAN informed pt that if anything discharge crain is to happen, it would not be until Sunday.
[2021-06-01] MEDS: QUEtiapine 100 MG TABLET. PO SCH ×2 (13:58→20:19)
[2021-06-01] MEDS: ACETAMINOPHEN 325 MG TABLET PO PRN ×2 (14:15→20:20)
--- NOTE | 2021-06-01 14:35 | NUR ---
Nsg Note; Daniel has been calm, cooperative and med compliant. He c/o chronic frontal LUCAS and was given tylenol at 1415. He does return to his room between meals, sometimes sitting and sometimes laying down.
[2021-06-01 15:48] VITALS: BP 96/61
[2021-06-01] MEDS: ATORVASTATIN CALCIUM 20 MG TABLET PO SCH (20:19)
--- NOTE | 2021-06-01 21:28 | NUR ---
Nursing Note Pt states "This covid thing is getting out of hand, my daughter has it, she isn't healthy I'm worried about her, she is in [place]". That is the most the patient has ever said to me at one time. Told him I would keep her in my thoughts and that hopefully youth is on her side since she is in her 40's. He states "Thanks, I am not so sure, and she has 3 kids." Pt takes HS meds with tylenol no other complaints. Pt speaks softly with very little facial expression.
--- NOTE | 2021-06-01 21:49 | PN ---
DATE: 06/01/2021 SUBJECTIVE: The patient is seen today, met with the staff. Chart reviewed. Staff reports no major problems except being withdrawn, tends to isolate himself in his room. The patient also pleased with the assessment and apparently was accepted at [facility] __. OBSERVATION: VITAL SIGNS: Temperature 97.5, blood pressure 112/73, pulse 77, respirations 20, O2 sat 97%. GENERAL: Slept about 6-1/2 hours last night. LABORATORY DATA: The patient's lab reviewed. The patient is not having any physical complaints. CURRENT MEDICATIONS: Seroquel 100 mg daily, Celexa 40 mg daily, Seroquel 300 mg at night. The patient is also on Lamictal 200 mg twice a day and Klonopin 0.5 mg twice a day and BuSpar 20 mg 3 times a day. The patient is not showing any side effects to medications. ASSESSMENT: Major depressive disorder with psychotic symptoms. CLEVE: To continue with treatment. LENGTH OF STAY: Five days. The patient is planned for discharge on 06/06/2021. LEONIE DR: Precious TID: [id number]
[2021-06-02 06:09] VITALS: BP 120/73
[2021-06-02] MEDS: OMEGA-3 FATTY ACIDS/FISH OIL 1,000 MG CAPSULE. PO SCH (08:11)
[2021-06-02] MEDS: CITALOPRAM 20 MG TABLET. PO SCH (08:11)
[2021-06-02] MEDS: SENNOSIDES 8.6 MG TABLET PO SCH ×2 (08:11→20:11)
[2021-06-02] MEDS: FAMOTIDINE 20 MG TABLET PO SCH ×2 (08:12→20:11)
[2021-06-02] MEDS: LUBIPROSTONE 24 MCG CAPSULE PO SCH ×2 (08:12→13:56)
[2021-06-02] MEDS: busPIRone 10 MG TABLET. PO SCH ×3 (08:12→20:11)
[2021-06-02] MEDS: QUEtiapine 50 MG TABLET. PO SCH (08:12)
[2021-06-02] MEDS: LISINOPRIL 5 MG TABLET. PO SCH (08:12)
[2021-06-02] MEDS: clonazePAM 0.5 MG TABLET PO SCH ×2 (08:13→20:13)
[2021-06-02] MEDS: FOLIC ACID 1 MG TABLET PO SCH (08:13)
[2021-06-02] MEDS: CARBIDOPA/LEVODOPA 25/100MG TABLET PO SCH ×2 (08:13→20:11)
[2021-06-02] MEDS: metFORMIN 500 MG TABLET PO SCH (08:13)
[2021-06-02] MEDS: CHOLECALCIFEROL (VITAMIN D3) 1,000 UNIT TABLET PO SCH (08:13)
[2021-06-02] MEDS: lamoTRIgine 100 MG TABLET. PO SCH ×2 (08:13→20:11)
[2021-06-02] MEDS: ASPIRIN CHEWABLE 81 MG TABLET. PO SCH (08:13)
[2021-06-02] MEDS: ACETAMINOPHEN 325 MG TABLET PO PRN (08:17)
--- NOTE | 2021-06-02 11:48 | NUR ---
WEEKLY ACTIVITY THERAPY NOTE Date of Admission:05/10/21 Date of AT Assessment: 05/13 Precipitating behaviors that initiated intake and admission:Pt at [facility] X 4 days for SI HI, has had command hallucinations to kill staff and self with no plan no action. Pt needs placement in level 2 has failed at 0 facilities recently. Report from Chitra at [facility] Goal aimed: increase socialization and engagement Initial Goal: Pt will participate in at least five Activity Therapy groups per week Goal changed 05/26:Pt will participate in all Activity Therapy sessions offered Weekly progress towards goal: achieved, 5/5 Group participation level: 2 mod, 3 full Weekly highlights: fully engaged in pool noodle exercises and trivia , unscrambled word for New's Year georgette group Sunday, accepted magazines for activity offer on Sunday Behaviors observed: often leaves group but does return, quiet, pleasant Plan: no change to goal Beneficial adaptations: socialization and engagement
--- NOTE | 2021-06-02 13:14 | NUR ---
Nsg Note; Daniel has been withdrawn to his room between meals. He comes to the dining room and eats well, and takes his med whole without difficulty.
[2021-06-02] MEDS: QUEtiapine 100 MG TABLET. PO SCH ×2 (13:56→20:12)
[2021-06-02 15:53] VITALS: BP 137/74
[2021-06-02] MEDS: ATORVASTATIN CALCIUM 20 MG TABLET PO SCH (20:11)
--- NOTE | 2021-06-02 23:03 | NUR ---
Pt located in his room this evening watching the [employer] show on the kalyie and laughing. Calm and cooperative. Compliant with whole medications. Pt currently sleeping.
--- NOTE | 2021-06-03 01:37 | PN ---
DATE: 06/02/2021 SUBJECTIVE: The patient was seen today, met with the staff, chart reviewed and also participated in the treatment review meeting. The patient continues to show improvement, still withdrawn, periods of depression. The patient is not having any physical complaints. OBSERVATION: VITAL SIGNS: Temperature 98.2, blood pressure 120/73, pulse 81, respirations 14, O2 sat 93%. GENERAL: Slept about 5-1/2 hours last night. The patient's appetite is fair. CURRENT MEDICATIONS: Include: Seroquel 100 mg daily, Celexa 40 mg daily, Seroquel 300 mg at night, Lamictal 200 mg twice a day, Klonopin 0.5 mg twice a day and BuSpar 20 mg 3 times a day. He is not having any side effects to medications. The patient is able to walk with a walker, has some gait difficulty secondary to Parkinson's. ASSESSMENT: Major depressive disorder with psychotic symptoms. PLAN: To continue with treatment. The patient is planned for discharge next week. LENGTH OF STAY: Five days. CARLOS/MARCY DR: Precious TID: [id number]
[2021-06-03 06:25] VITALS: BP 123/76
[2021-06-03] MEDS: metFORMIN 500 MG TABLET PO SCH (08:04)
[2021-06-03] MEDS: LUBIPROSTONE 24 MCG CAPSULE PO SCH ×2 (08:08→14:17)
[2021-06-03] MEDS: lamoTRIgine 100 MG TABLET. PO SCH ×2 (08:09→20:28)
[2021-06-03] MEDS: CARBIDOPA/LEVODOPA 25/100MG TABLET PO SCH ×2 (08:09→20:29)
[2021-06-03] MEDS: clonazePAM 0.5 MG TABLET PO SCH ×2 (08:09→20:31)
[2021-06-03] MEDS: OMEGA-3 FATTY ACIDS/FISH OIL 1,000 MG CAPSULE. PO SCH (08:09)
[2021-06-03] MEDS: ASPIRIN CHEWABLE 81 MG TABLET. PO SCH (08:10)
[2021-06-03] MEDS: LISINOPRIL 5 MG TABLET. PO SCH (08:10)
[2021-06-03] MEDS: SENNOSIDES 8.6 MG TABLET PO SCH ×2 (08:11→20:28)
[2021-06-03] MEDS: FOLIC ACID 1 MG TABLET PO SCH (08:11)
[2021-06-03] MEDS: CITALOPRAM 20 MG TABLET. PO SCH (08:11)
[2021-06-03] MEDS: busPIRone 10 MG TABLET. PO SCH ×3 (08:11→20:29)
[2021-06-03] MEDS: QUEtiapine 50 MG TABLET. PO SCH (08:12)
[2021-06-03] MEDS: FAMOTIDINE 20 MG TABLET PO SCH ×2 (08:12→20:29)
[2021-06-03] MEDS: CHOLECALCIFEROL (VITAMIN D3) 1,000 UNIT TABLET PO SCH (08:13)
[2021-06-03] MEDS: ACETAMINOPHEN 325 MG TABLET PO PRN ×3 (08:19→20:28)
[2021-06-03] MEDS: QUEtiapine 100 MG TABLET. PO SCH ×2 (14:17→20:29)
[2021-06-03 15:55] VITALS: BP 107/69
[2021-06-03] MEDS: ATORVASTATIN CALCIUM 20 MG TABLET PO SCH (20:28)
--- NOTE | 2021-06-03 22:18 | PN ---
DATE: 06/03/2021 SUBJECTIVE: The patient continues to show improvement, still anxious, withdrawn and some paranoia. The patient apparently was not accepted by the correction near [place]. The patient is upset because of the placement issues. Staff reports he has been calm and cooperative and compliant with the medications. OBSERVATION: VITAL SIGNS: Temperature 98.1, blood pressure 123/76, pulse 85, respirations 16, O2 sat 92%. Slept about 7-1/2 hours last night. His appetite is fair. CURRENT MEDICATIONS: Seroquel 100 mg daily, Celexa 40 mg daily, Seroquel 300 mg at night, Lamictal 200 mg twice a day, Klonopin 0.5 mg twice a day and BuSpar 20 mg 3 times a day. The patient denies of any side effects to medications. ASSESSMENT: Major depressive disorder with psychotic symptoms. PLAN: To continue with treatment. The patient is awaiting for placement. PAMELA DR: Precious TID: [id number]
--- NOTE | 2021-06-04 00:55 | NUR ---
Nursing Note The patient was calm and cooperative this shift. The patient took his medication whole. The patient requested PRN Tylenol with HS medication for headache. The patient was alert to name, date and location. The patient is currently sleeping in his room.
[2021-06-04 06:24] VITALS: BP 126/82
[2021-06-04] MEDS: SENNOSIDES 8.6 MG TABLET PO SCH (09:11)
[2021-06-04] MEDS: metFORMIN 500 MG TABLET PO SCH (09:12)
[2021-06-04] MEDS: OMEGA-3 FATTY ACIDS/FISH OIL 1,000 MG CAPSULE. PO SCH (09:12)
[2021-06-04] MEDS: lamoTRIgine 100 MG TABLET. PO SCH (09:12)
[2021-06-04] MEDS: clonazePAM 0.5 MG TABLET PO SCH (09:12)
[2021-06-04] MEDS: QUEtiapine 50 MG TABLET. PO SCH (09:12)
[2021-06-04] MEDS: FAMOTIDINE 20 MG TABLET PO SCH (09:12)
[2021-06-04] MEDS: CITALOPRAM 20 MG TABLET. PO SCH (09:12)
[2021-06-04] MEDS: LUBIPROSTONE 24 MCG CAPSULE PO SCH ×2 (09:13→13:14)
[2021-06-04] MEDS: ASPIRIN CHEWABLE 81 MG TABLET. PO SCH (09:13)
[2021-06-04] MEDS: CARBIDOPA/LEVODOPA 25/100MG TABLET PO SCH (09:13)
[2021-06-04] MEDS: CHOLECALCIFEROL (VITAMIN D3) 1,000 UNIT TABLET PO SCH (09:13)
[2021-06-04] MEDS: busPIRone 10 MG TABLET. PO SCH ×2 (09:15→13:14)
[2021-06-04] MEDS: LISINOPRIL 5 MG TABLET. PO SCH (09:15)
[2021-06-04] MEDS: FOLIC ACID 1 MG TABLET PO SCH (09:15)
[2021-06-04] MEDS: ACETAMINOPHEN 325 MG TABLET PO PRN ×2 (09:17→15:11)
[2021-06-04] MEDS: QUEtiapine 100 MG TABLET. PO SCH (13:14)
[2021-06-04 16:17] VITALS: BP 108/73
--- NOTE | 2021-06-04 17:19 | NUR ---
Nsg Note; discharge Transition Record was faxed to follow-up provider with the following elements: Reason for admission, procedures, tests, principal diagnosis, pending studies, patient instructions, 18/12 contact information for unit, phone number to obtain pending test results, plan for follow-up care, physician follow-up, advanced directive information, and medication list with dose, duration and instructions. This information was included in the following documents: History and physical, lab results, study results, progress notes, social work planning form, DC instruction form, patient visit summary, and medication reconciliation form. Date & time record faxed: at 163 Record faxed to: [facility] at [phone] Record discussed with/ report given to Skye BALLARD
[2021-06-04] MEDS ORDERED: LAMO200T6 PO (19:02)
[2021-06-04] MEDS ORDERED: LISI2.5T12 PO (19:02)
[2021-06-04] MEDS ORDERED: ESCITALOPRAM OX20 MG PO (19:02)
[2021-06-04] MEDS ORDERED: METF-639 PO (19:02)
--- NOTE | 2021-06-06 21:11 | DS ---
DATE OF DISCHARGE: 06/04/2021 DISCHARGE SUMMARY/PSYCHIATRIC PROGRESS NOTE This is a late entry, date of service 06/04/2021, covers the elements not covered in my initial note. REASON FOR ADMISSION: Please refer to the admission history for details. Briefly, the patient is a 61-year-old male with Parkinson's disease, who presents back to us on account of marked psychotic symptoms, having command hallucinations telling him to hurt himself and the staff at [facility]. He has been depressed, has failed multiple recent inpatient psychiatric stabilizations. Behavior is deemed dangerous, unmanageable, failed outpatient treatment, resulting in this referral. SIGNIFICANT FINDINGS AND CLINICAL COURSE: Following admission, the patient was seen daily individually by myself from a psychiatric standpoint. Medical followup, Dr. Nugent/Dr. Toth. The patient was quite psychotic with active hallucinations. Adjustments were made in his psychotropics and he seemed to be responding to a combination of BuSpar 20 mg t.i.d. for anxiety, Klonopin 0.5 mg b.i.d., Celexa 40 mg a day, Lamictal 200 mg b.i.d., Seroquel 100 mg at 1400 and 300 mg at bedtime and 50 mg a.m. and he remained on Sinemet for his Parkinson's. He did have a Neurology consult, was followed by Dr. Orona with adjustments of his Parkinson's medications helping in gradual stabilization of his psychosis. He denies suicidal ideation prior to discharge. On 06/04/2021, he tested positive for COVID and was transferred to the medical surgical floor [address] [place] [address] for stabilization and monitoring. REVIEW OF SYSTEMS: Prior to discharge, review of systems positive for difficulty with his movements consequent to Parkinson's. No CV, , pulmonary, eye system symptoms on review. MENTAL STATUS EXAMINATION: The patient is reasonably oriented. Speech is coherent. Abstraction fair. Computation impaired. Language function intact. Mood and affect somewhat withdrawn with a parkinsonian facial expression, but psychosis appeared to have stabilized and no suicidal ideation. CONDITION ON DISCHARGE: Improved. FINAL DIAGNOSES: Major depressive disorder with psychotic features; psychotic disorder, unspecified; anxiety disorder, unspecified; Parkinson's disease; COVID positive status. Rest unchanged from admission. DISCHARGE MEDICATIONS: Please refer to the MRAD. Psychiatric and medical followup on the medical surgical floor. Time for discharge day management greater than 30 minutes. ALMA DELIA/EKT DR: ALMA DELIA/nts TID: [id number]
--- NOTE | 2021-06-07 07:46 | PDOC ---
Exam Note: Kal Note: Late entry for 06/04/2021. Please also refer to the separate dictated note~for this date of service dictated separately.~Patient seen individually. Discussed the patient with Nursing staff reviewed the chart.~Reviewed interim history and current functioning. Reviewed vital signs,~Labs/ Radiology~and current medic ations noted below. Continue current treatment with the changes noted in the dictated addendum note Assessment: Vital Signs/I&O: Vital Signs Date Time Temp Pulse Resp B/P (MAP) Pulse Ox O2 Delivery O2 Flow Rate FiO2 06/04/21 16:17 98.3 88 20 108/73 (85) 97 Room Air Current Medications: Meds: Current Medications Medications (Trade) Dose Ordered Sig/Kaley Route PRN Reason Start Time Stop Time Status Last Admin Dose Admin Buspirone HCl (Buspar) 20 mg TID PO 05/10/21 21:00 06/04/21 17:23 DC 06/04/21 13:14 Carbidopa/Levodopa (Sinemet 25/100) 1 tab BID94 PO 05/11/21 09:00 UNV Carbidopa/Levodopa (Sinemet 25/100) 1 tab HS PO 05/10/21 21:00 UNV Clonazepam (KlonoPIN) 0.5 mg BID PO 05/10/21 21:00 06/04/21 17:23 DC 06/04/21 09:12 Quetiapine Fumarate (SEROquel) 50 mg DAILY PO 05/11/21 09:00 06/04/21 17:23 DC 06/04/21 09:12 Quetiapine Fumarate (SEROquel) 100 mg DAILY@1400 PO 05/11/21 14:00 06/04/21 17:23 DC 06/04/21 13:14 Citalopram Hydrobromide (CeleXA) 40 mg DAILY PO 05/11/21 09:00 06/04/21 17:23 DC 06/04/21 09:12 Lamotrigine (LaMICtal) 200 mg BID PO 05/10/21 21:00 06/04/21 17:23 DC 06/04/21 09:12 Quetiapine Fumarate (SEROquel) 300 mg HS PO 05/10/21 21:00 06/04/21 17:23 DC 06/03/21 20:29 Carbidopa/Levodopa (Sinemet 25/100) 1 tab 0900,1600,2100 PO 05/10/21 21:00 05/12/21 20:30 DC 05/12/21 16:18 Acetaminophen (Tylenol) 650 mg PRN Q6HRS PRN PO MILD PAIN / TEMP > 100.3'F 05/11/21 00:45 06/04/21 17:23 DC 06/04/21 15:11 Multi-Ingredient Ointment (Analgesic [place]) 1 erum PRN QID PRN TP MUSCLE PAIN 05/11/21 00:45 06/04/21 17:23 DC Al Hydroxide/Mg Hydroxide (Mylanta Plus Xs) 15 ml PRN AFTMEALHC PRN PO DYSPEPSIA 05/11/21 00:45 05/11/21 07:45 DC Magnesium Hydroxide (Milk Of Magnesia) 2,400 mg PRN QHS PRN PO 2ND CHOICE CONSTIPATION 05/11/21 00:45 06/04/21 17:23 DC 05/17/21 08:12 Acetaminophen (Tylenol) 650 mg PRN Q6HRS PRN PO MILD PAIN / TEMP > 100.3'F 05/11/21 07:15 05/11/21 07:48 DC Aspirin (Aspirin Chewable) 81 mg DAILY PO 05/11/21 09:00 06/04/21 17:23 DC 06/04/21 09:13 Atorvastatin Calcium (Lipitor) 20 mg QHS PO 05/11/21 21:00 06/04/21 17:23 DC 06/03/21 20:28 Famotidine (Pepcid) 20 mg BID PO 05/11/21 09:00 06/04/21 17:24 DC 06/04/21 09:12 Folic Acid (Folic Acid) 1 mg DAILY PO 05/11/21 09:00 06/04/21 17:24 DC 06/04/21 09:15 Lisinopril (Prinivil) 2.5 mg DAILY PO 05/11/21 09:00 05/24/21 10:04 DC 05/24/21 08:10 Lubiprostone (Amitiza) 24 mcg BID94 PO 05/11/21 09:00 06/04/21 17:24 DC 06/04/21 13:14 Metformin HCl (Glucophage) 1,000 mg DAILYWBKFT PO 05/11/21 09:00 06/04/21 17:24 DC 06/04/21 09:12 Sennosides (Senna) 8.6 mg BID PO 05/11/21 09:00 06/04/21 17:24 DC 06/04/21 09:11 Vitamin D (Vitamin D3) 1,000 unit DAILY PO 05/11/21 09:00 06/04/21 17:24 DC 06/04/21 09:13 Fish Oil (Fish Oil) 1,000 mg DAILY PO 05/11/21 09:00 06/04/21 17:24 DC 06/04/21 09:12 Non-Formulary Medication (Linaclotide (Linzess)) 145 mcg DAILY PO 05/11/21 09:00 05/11/21 07:51 DC Al Hydroxide/Mg Hydroxide (Mylanta Plus Xs) 30 ml PRN Q4HRS PRN PO DYSPEPSIA 05/11/21 07:45 06/04/21 17:24 DC Non-Formulary Medication (Magnesium Hydroxide (Milk Of Magnesia)) 2,400 mg PRN QHS PRN PO CONSTIPATION 05/11/21 07:15 05/11/21 07:43 DC Ondansetron HCl (Zofran Odt) 4 mg PRN Q12HR PRN PO NAUSEA/VOMITING 05/11/21 08:00 06/04/21 17:24 DC Polyethylene Glycol (miraLAX) 17 gm PRN DAILY PRN PO 1ST CHOICE CONSTIPATION 05/11/21 08:00 06/04/21 17:24 DC Carbidopa/Levodopa (Sinemet 25/100) 1 tab BID PO 05/12/21 21:00 06/04/21 17:24 DC 06/04/21 09:13 Lisinopril (Prinivil) 2.5 mg DAILY PO 05/25/21 09:00 06/04/21 17:24 DC 06/04/21 09:15 I have reviewed the current psychotropics carefully including drug interactions. Risk benefit ratio favors no change other than as noted in my dictated progress note. Diagnosis: Problems: (1) Psychotic disorder (2) Anxiety disorder (3) Major depressive disorder, recurrent episode (4) Impulse control disorder (5) Major depressive disorder with psychotic features LUTHER WARNER MD Jun 07, 2021 07:46
== END 2021-06-04 17:23 | disposition short-term general hospital (02) | DRG 885 ==
LOC: GEROPSY 19:20
PROVIDERS: ADMIT Psychiatry & Neurology Psychiatry; ATTEND Psychiatry & Neurology Psychiatry
DX: F33.3 Major depressive disorder, recurrent, severe with psychotic symptoms (principal); U07.1 COVID-19; E11.9 Type 2 diabetes mellitus without complications; E78.5 Hyperlipidemia, unspecified; Z66 Do not resuscitate; F41.1 Generalized anxiety disorder; F63.9 Impulse disorder, unspecified; G20 Parkinson's disease; I10 Essential (primary) hypertension; K21.9 Gastro-esophageal reflux disease without esophagitis; Z79.899 Other long term (current) drug therapy; Z79.84 Long term (current) use of oral hypoglycemic drugs; Z88.8 Allergy status to other drugs, medicaments and biological substances; Z91.041 Radiographic dye allergy status
CPT/HCPCS: 36415; 80053; 80061; 81001; 82306; 82607; 82947; 83036; 83540; 83550; 83735; 84436; 84443; 84480; 85025; 85379; 86592; 87086; 93005; U0003; 97530

== ENCOUNTER 2021-06-04 16:00 | Inpatient (IN) | payer MEDICARE, OTHER ==
[~2021-06-04] VITALS: Ht 182.9 cm; Wt 88.9 kg
[~2021-06-04 16:00] MED LIST changes: +KRIL1CAP5 PO; +LUBI24CA7 PO; +QUET100T4 PO
[2021-06-04] MEDS ORDERED: ESCITALOPRAM OX20 MG PO (19:02)
[2021-06-04] MEDS ORDERED: METF-639 PO (19:02)
[2021-06-04] MEDS ORDERED: LISI2.5T12 PO (19:02)
[2021-06-04] MEDS ORDERED: LAMO200T6 PO (19:02)
[2021-06-04 19:51] VITALS: BP 110/76
[2021-06-04] MEDS ORDERED: NON FORMULARY ITEM (Lamotrigine 200 MG) PO SCH (21:00)
[2021-06-04] MEDS: CARBIDOPA/LEVODOPA 25/100MG TABLET PO SCH (21:19)
[2021-06-04] MEDS: FAMOTIDINE 20 MG TABLET PO SCH (21:19)
[2021-06-04] MEDS: clonazePAM 0.5 MG TABLET PO SCH (21:20)
[2021-06-04] MEDS: QUEtiapine 100 MG TABLET. PO SCH (21:20)
[2021-06-04] MEDS: lamoTRIgine 100 MG TABLET. PO SCH (21:20)
[2021-06-04] MEDS: ATORVASTATIN CALCIUM 20 MG TABLET PO SCH (21:20)
[2021-06-04] MEDS: busPIRone 10 MG TABLET. PO SCH (21:21)
[2021-06-04] MEDS: ACETAMINOPHEN 325 MG TABLET PO PRN (21:29)
[2021-06-04 23:52] VITALS: BP 90/55
[2021-06-05 06:05] VITALS: BP 111/73
[2021-06-05 08:01] LABS: BASO % 1 % (0-3); EOS # 0.1 x10^3/uL (0.0-0.7); EOS % 3 % (0-3); HEMATOCRIT 43.7 % (39.0-53.0); HEMOGLOBIN 14.9 g/dL (13.0-17.5); LYMPH # 1.6 x10^3/uL (1.0-4.8); LYMPH % 43 % (24-48); MEAN CORPUSCULAR HEMOGLOBIN 32 pg (25-35); MEAN CORPUSCULAR HGB CONC 34 g/dL (31-37); MEAN CORPUSCULAR VOLUME 93 fL (79-100); MONO # 0.5 x10^3/uL (0.0-1.1); MONO % 14 % (0-9); NEUT # 1.5 x10^3uL (1.8-7.7); NEUT % 39 % (31-73); PLATELET COUNT 144 x10^3/uL (140-400); RED CELL DISTRIBUTION WIDTH 13.4 % (11.5-14.5); WHITE BLOOD COUNT 3.8 x10^3/uL (4.0-11.0)
[2021-06-05 08:17] LABS: ALBUMIN 3.6 g/dL (3.4-5.0); ALBUMIN/GLOBULIN RATIO 1.2 (1.0-1.7); CALCIUM 8.3 mg/dL (8.5-10.1); CREATININE 0.8 mg/dL (0.7-1.3); GFR 98.6; POTASSIUM 3.9 mmol/L (3.5-5.1); TOTAL BILIRUBIN 0.4 mg/dL (0.2-1.0); TOTAL PROTEIN 6.6 g/dL (6.4-8.2)
[2021-06-05] MEDS: lamoTRIgine 100 MG TABLET. PO SCH ×2 (08:36→19:43)
[2021-06-05] MEDS: QUEtiapine 50 MG TABLET. PO SCH (08:36)
[2021-06-05] MEDS: FAMOTIDINE 20 MG TABLET PO SCH ×2 (08:36→19:43)
[2021-06-05] MEDS: metFORMIN 500 MG TABLET PO SCH (08:36)
[2021-06-05] MEDS: ZINC SULFATE 220 MG CAPSULE. PO SCH (08:37)
[2021-06-05] MEDS: LISINOPRIL 5 MG TABLET. PO SCH (08:37)
[2021-06-05] MEDS: ASPIRIN CHEWABLE 81 MG TABLET. PO SCH (08:37)
[2021-06-05] MEDS: busPIRone 10 MG TABLET. PO SCH ×3 (08:37→19:44)
[2021-06-05] MEDS: FOLIC ACID 1 MG TABLET PO SCH (08:37)
[2021-06-05] MEDS: ASCORBIC ACID 1,000 MG TABLET PO SCH (08:37)
[2021-06-05] MEDS: CARBIDOPA/LEVODOPA 25/100MG TABLET PO SCH ×4 (08:37→19:43)
[2021-06-05] MEDS: clonazePAM 0.5 MG TABLET PO SCH ×2 (08:37→19:44)
[2021-06-05] MEDS: CITALOPRAM 20 MG TABLET. PO SCH (08:37)
[2021-06-05] MEDS ORDERED: METFORMIN HCL 1000 MG PO SCH (09:00)
[2021-06-05] MEDS ORDERED: NON FORMULARY ITEM (Lisinopril 2.5 MG) PO SCH (09:00)
[2021-06-05] MEDS ORDERED: NON FORMULARY ITEM (Escitalopram Oxalate 20 MG) PO SCH (09:00)
[2021-06-05] MEDS ORDERED: CARBIDOPA/LEVODOPA 25/100MG TABLET PO SCH (09:00)
[2021-06-05 10:45] VITALS: BP 110/76
--- NOTE | 2021-06-05 10:52 | HP ---
DATE OF SERVICE: 06/05/2021 ADMIT DATE: 06/04/2021 ATTENDING PHYSICIAN: Dr. Toth. We are asked to admit this patient for COVID positive swab. HISTORY OF PRESENT ILLNESS: The patient is a 61-year-old gentleman with multiple psychiatric issues. He has underlying Parkinson's disease, psychotic disorder, major depression, impulse control and bipolar features. He also has bilateral nerve stimulator implants placed by Neurology. He has been vaccinated. He developed a positive swab while on the floor. He has no symptoms. His oxygen saturations are adequate at 93% on room air. He has no other symptoms of dyspnea. He was admitted down here for isolation for further treatment. PAST MEDICAL HISTORY: Significant for the psychiatric issues along with Parkinson's disease, impulse control disorder and bipolar disorder. CURRENT MEDICATIONS: From upstairs include Tylenol, aspirin, Lipitor, Sinemet, clonazepam, Celexa, famotidine, folic acid, Lamictal, lisinopril, and metformin. He is also getting Seroquel. ALLERGIES: HE HAS ALLERGIES TO PREDNISONE AND CONTRAST DYE. EXACT REACTION IS UNCLEAR. SOCIAL HISTORY: He is a nonsmoker, nondrinker. FAMILY HISTORY: Unobtainable. REVIEW OF SYSTEMS: Unremarkable for any COVID symptoms. No fevers, chills, cough or congestion. He has been fully vaccinated. PHYSICAL EXAMINATION: VITAL SIGNS: Blood pressure on admission was 110/70, pulse is 70 and regular. He is afebrile. Oxygen saturation 96% on room air. HEENT: Head is without trauma. Pupils are reactive. Sclerae nonicteric. Oropharynx clear. NECK: Supple. LUNGS: Clear. CARDIOVASCULAR: Regular heart tones. ABDOMEN: Soft. EXTREMITIES: Without edema. NEUROLOGIC FINDINGS: Flat affect with parkinsonian features. SKIN: Warm and dry. PERTINENT LABORATORY STUDIES: Hemoglobin this morning is 14.9 g/dL with a white count of 3800. Chemistry panel unremarkable, all within normal range. Serology as noted. ASSESSMENT: 1. A 61-year-old gentleman vaccinated against COVID. He has a positive coronavirus swab. Most likely the Omicron variant. He is asymptomatic. 2. Underlying Parkinson's disease. 3. Bipolar disorder. 4. Behavioral issues. 5. Psychosis. 6. Questionable diabetes, on current regimen. 7. History of bilateral brain implants. PLAN: 1. Admit to the inpatient unit. 2. Home meds were continued including her psychiatric meds. 3. At this time, he is asymptomatic from his COVID exposure. No treatment for COVID is necessary. 4. We will discuss the long-term goals and placement. SPRING DR: Uriah TID: [id number] CC: LUTHER WARNER MD
[2021-06-05] MEDS: QUEtiapine 100 MG TABLET. PO SCH ×2 (13:00→19:44)
--- NOTE | 2021-06-05 15:55 | NUR ---
Nursing note: Patient is cooperative with assessment. He was compliant with medications taken whole. He is alert and oriented X4, calm, pleasant, & cooperative. He walks independently with walker, staying in room due to being in isolation for COVID. Patient denies AH, HI, or self harm thoughts. He denies pain/discomfort. He is currently laying in bed watching tv, call light in reach. Will continue to monitor.
[2021-06-05] MEDS: ACETAMINOPHEN 325 MG TABLET PO PRN (19:43)
[2021-06-05] MEDS: ATORVASTATIN CALCIUM 20 MG TABLET PO SCH (19:43)
[2021-06-05 20:06] VITALS: BP 115/74
[2021-06-06 05:30] VITALS: BP 108/71
--- NOTE | 2021-06-06 08:09 | PDOC ---
Exam Note: Kal Note: This note is a late entry for 06/05/2021 covers elements not covered in my initial note. Subjective: The patient was seen on telehealth rounds in the evening of 06/05/2021 due to COVID-19 exposure on our unit and half the patients have been COVID positive and transferred to the Medical/Surgical Floor. Discussed with Mary Lou BALLARD and reviewed the chart. Also discussed the patient with Dr. Ortega who covered for me for the past 2 weeks. Reviewed current and past records, labs, etc. I have been asked to follow the patient on [facility] from [facility] due to COVID positive status. Dr. Toth is the attending pulp mill operator on [facility]. He continues to have parkinsonian shuffling gait and flat affect. He denies psychotic symptoms as I met with him individually. Review of Systems: No CV, , eye, ENT system symptoms on review. Mental Status Exam: The patient is reasonably oriented. Speech moderate latency. Often response is monosyllabic. Abstraction fair. Computation impaired. Language function intact. Mood and affect somewhat withdrawn. No psychotic symptoms. Laboratory Data: Reviewed. Impression: Major depressive disorder, recurrent, rule out psychotic features. Anxiety disorder unspecified. Plan: Continue current psychotropics. She is currently on Sinemet for his Parkinson, BuSpar 20 mg t.i.d., Klonopin 0.5 mg b.i.d., Lamictal 200 mg b.i.d., Seroquel 50 mg daily, 100 mg 1400 hours, 300 mg h.s., Celexa 40 mg a day. Reviewed drug interactions, risk-benefit ratio favors no change at this time. Assessment: Vital Signs/I&O: Vital Signs Date Time Temp Pulse Resp B/P (MAP) Pulse Ox O2 Delivery O2 Flow Rate FiO2 06/06/21 05:30 97.2 69 18 108/71 (83) 95 Room Air I & O 06/05/21 06/05/21 06/06/21 15:00 23:00 07:00 Intake Total 480 ml 200 ml 200 ml Balance 480 ml 200 ml 200 ml Labs: Laboratory Tests Test 06/05/21 08:20 Glucose (Fingerstick) 106 mg/dL (70-99) H Current Medications: Meds: Laboratory Tests Test 06/05/21 08:20 Glucose (Fingerstick) 106 mg/dL Current Medications Medications (Trade) Dose Ordered Sig/Kaley Route PRN Reason Start Time Stop Time Status Last Admin Dose Admin Guaifenesin (Mucinex Er) 1,200 mg BID PO 06/04/21 21:00 06/05/21 19:44 Ascorbic Acid (Vitamin C) 1,000 mg DAILY PO 06/05/21 09:00 06/05/21 08:37 Zinc Sulfate (Orazinc) 220 mg DAILY PO 06/05/21 09:00 06/05/21 08:37 Acetaminophen (Tylenol) 650 mg PRN Q6HRS PRN PO MILD PAIN / TEMP > 100.3'F 06/04/21 19:00 06/05/21 19:43 Aspirin (Aspirin Chewable) 81 mg DAILY PO 06/05/21 09:00 06/05/21 08:37 Atorvastatin Calcium (Lipitor) 20 mg QHS PO 06/04/21 21:00 06/05/21 19:43 Carbidopa/Levodopa (Sinemet 25/100) 1 tab BID94 PO 06/05/21 09:00 06/04/21 21:14 DC Clonazepam (KlonoPIN) 0.5 mg BID PO 06/04/21 21:00 06/05/21 19:44 Famotidine (Pepcid) 20 mg BID PO 06/04/21 21:00 06/05/21 19:43 Folic Acid (Folic Acid) 1 mg DAILY PO 06/05/21 09:00 06/05/21 08:37 Metformin HCl (Glucophage) 1,000 mg DAILY PO 06/05/21 09:00 06/05/21 08:36 Citalopram Hydrobromide (CeleXA) 40 mg DAILY PO 06/05/21 09:00 06/05/21 08:37 Non-Formulary Medication (Escitalopram Oxalate ) 20 mg DAILY PO 06/05/21 09:00 UNV Lamotrigine (LaMICtal) 200 mg BID PO 06/04/21 21:00 06/05/21 19:43 Non-Formulary Medication (Lamotrigine ) 200 mg BID PO 06/04/21 21:00 UNV Non-Formulary Medication (Lisinopril ) 2.5 mg DAILY PO 06/05/21 09:00 UNV Lisinopril (Prinivil) 2.5 mg DAILY PO 06/05/21 09:00 06/05/21 08:37 Non-Formulary Medication (Metformin HCl (Metformin HCl ER)) 1,000 mg DAILY PO 06/05/21 09:00 UNV Buspirone HCl (Buspar) 20 mg TID PO 06/04/21 21:30 06/05/21 19:44 Carbidopa/Levodopa (Sinemet 25/100) 1 tab QID PO 06/04/21 21:30 06/05/21 21:31 DC 06/05/21 19:43 Quetiapine Fumarate (SEROquel) 300 mg QHS PO 06/04/21 21:30 06/05/21 19:44 Quetiapine Fumarate (SEROquel) 50 mg DAILY PO 06/05/21 09:00 06/05/21 08:36 Quetiapine Fumarate (SEROquel) 100 mg DAILY@1400 PO 06/05/21 14:00 06/05/21 13:00 Carbidopa/Levodopa (Sinemet 25/100) 1 tab BID PO 06/06/21 09:00 Current Medications Medications (Trade) Dose Ordered Sig/Kaley Route PRN Reason Start Time Stop Time Status Last Admin Dose Admin Ascorbic Acid (Vitamin C) 1,000 mg DAILY PO 06/05/21 09:00 06/05/21 08:37 Zinc Sulfate (Orazinc) 220 mg DAILY PO 06/05/21 09:00 06/05/21 08:37 Aspirin (Aspirin Chewable) 81 mg DAILY PO 06/05/21 09:00 06/05/21 08:37 Folic Acid (Folic Acid) 1 mg DAILY PO 06/05/21 09:00 06/05/21 08:37 Metformin HCl (Glucophage) 1,000 mg DAILY PO 06/05/21 09:00 06/05/21 08:36 Citalopram Hydrobromide (CeleXA) 40 mg DAILY PO 06/05/21 09:00 06/05/21 08:37 Lisinopril (Prinivil) 2.5 mg DAILY PO 06/05/21 09:00 06/05/21 08:37 Quetiapine Fumarate (SEROquel) 50 mg DAILY PO 06/05/21 09:00 06/05/21 08:36 Quetiapine Fumarate (SEROquel) 100 mg DAILY@1400 PO 06/05/21 14:00 06/05/21 13:00 I have reviewed the current psychotropics carefully including drug interactions. Risk benefit ratio favors no change other than as noted in my dictated progress note. Diagnosis: Problems: (1) Major depressive disorder with psychotic features (2) Anxiety disorder (3) Impulse control disorder LUTHER WARNER MD Jun 06, 2021 08:09
[2021-06-06] MEDS: LISINOPRIL 5 MG TABLET. PO SCH (08:33)
[2021-06-06] MEDS: busPIRone 10 MG TABLET. PO SCH ×3 (08:33→19:53)
[2021-06-06] MEDS: ASCORBIC ACID 1,000 MG TABLET PO SCH (08:34)
[2021-06-06] MEDS: CARBIDOPA/LEVODOPA 25/100MG TABLET PO SCH ×2 (08:34→19:53)
[2021-06-06] MEDS: CITALOPRAM 20 MG TABLET. PO SCH (08:34)
[2021-06-06] MEDS: ZINC SULFATE 220 MG CAPSULE. PO SCH (08:34)
[2021-06-06] MEDS: ASPIRIN CHEWABLE 81 MG TABLET. PO SCH (08:34)
[2021-06-06] MEDS: QUEtiapine 50 MG TABLET. PO SCH (08:34)
[2021-06-06] MEDS: lamoTRIgine 100 MG TABLET. PO SCH ×2 (08:34→19:52)
[2021-06-06] MEDS: FAMOTIDINE 20 MG TABLET PO SCH ×2 (08:34→19:53)
[2021-06-06] MEDS: clonazePAM 0.5 MG TABLET PO SCH ×2 (08:34→19:52)
[2021-06-06] MEDS: metFORMIN 500 MG TABLET PO SCH (08:35)
[2021-06-06] MEDS: FOLIC ACID 1 MG TABLET PO SCH (08:35)
--- NOTE | 2021-06-06 09:12 | PN ---
DATE: 06/06/2021 ATTENDING PHYSICIAN: Dr. Toth. SUBJECTIVE: No new complaints. He said he was hallucinating a bit, but I reassured him, his Sinemet dose has been cut back to b.i.d. OBJECTIVE FINDINGS: VITAL SIGNS: Blood pressure this morning is 108/71 mmHg. He is afebrile. Oxygen saturation 95% on room air. Pulse is 70 and regular. HEENT: Head is without trauma. Pupils are reactive. Sclerae nonicteric. The oropharynx is clear. NECK: Supple. No bruits. LUNGS: Clear. CARDIOVASCULAR: Regular heart tones. ABDOMEN: Soft. EXTREMITIES: Without edema. NEUROLOGIC FINDINGS: He has the mask-like facies of Parkinson's disease. His speech is fluent. He has no deficit. LABORATORY DATA: Chemistry panel unremarkable. Nonfasting blood sugar of 106 mg/dL. ASSESSMENT: 1. A 61-year-old gentleman with COVID positive swab. He has been vaccinated. He is totally asymptomatic. 2. Underlying Parkinson's disease, advanced. 3. Bipolar disorder. 4. Behavioral issues. 5. Psychosis, stable. 6. Questionable diabetes, on current regimen. 7. History of bilateral electrical brain implants. PLAN: 1. Meds per Psychiatry and Neurology. 2. Diet as tolerated. 3. COVID quarantine per current directives. We will discuss long-term goals and placement. PEACE/NATALIO KANG: PEACE/parmjit TID: [id number]
[2021-06-06 10:55] VITALS: BP 118/75
[2021-06-06] MEDS: QUEtiapine 100 MG TABLET. PO SCH ×2 (14:32→19:53)
[2021-06-06 17:03] VITALS: BP 114/78
--- NOTE | 2021-06-06 18:29 | NUR ---
NURSE NOTE PT HAS BEEN CALM AND COOPERATIVE MOST OF THE DAY. PT HAD AN EPISODE WHEN TRANSFERRING TO [facility] DUE TO LACK OF PHONE AN TELEVISION REMOTE. REMOTE AND CORDLESS PHONE OBTAINED FOR PT AND PT CALMED DOWN AGAIN. PT IS NOW A&OX4 AND WATCHING TV IN BED. DENIES ANY PAIN OR DISCOMFORT. ATE HIS DINNER AND TOLERATED WELL. ALL NEEDS MET AT THIS TIME.
[2021-06-06] MEDS: ACETAMINOPHEN 325 MG TABLET PO PRN (19:53)
[2021-06-06] MEDS: ATORVASTATIN CALCIUM 20 MG TABLET PO SCH (19:53)
--- NOTE | 2021-06-06 21:03 | PDOC ---
Exam Note: Kal Note: Please also refer to the separate dictated note~for this date of service dictated separately.~Patient seen individually. Discussed the patient with Nursing staff reviewed the chart.~Reviewed interim history and current functioning. Reviewed vital signs,~Labs/ Radiology~and current medications noted below. Continue current treatment with the changes noted in the dictated addendum note Assessment: Vital Signs/I&O: Vital Signs Date Time Temp Pulse Resp B/P (MAP) Pulse Ox O2 Delivery O2 Flow Rate FiO2 06/06/21 20:04 Room Air 06/06/21 17:03 97.4 86 20 114/78 (90) 96 I & O 06/05/21 06/05/21 06/06/21 14:59 22:59 06:59 Intake Total 480 ml 200 ml 200 ml Balance 480 ml 200 ml 200 ml Current Medications: Meds: Current Medications Medications (Trade) Dose Ordered Sig/Kaley Route PRN Reason Start Time Stop Time Status Last Admin Dose Admin Carbidopa/Levodopa (Sinemet 25/100) 1 tab BID PO 06/06/21 09:00 06/06/21 19:53 I have reviewed the current psychotropics carefully including drug interactions. Risk benefit ratio favors no change other than as noted in my dictated progress note. Diagnosis: Problems: (1) COVID-19 (2) Major depressive disorder with psychotic features (3) Anxiety disorder (4) Major depressive disorder, recurrent episode (5) Impulse control disorder LUTHER WARNER MD Jun 06, 2021 21:03
[2021-06-06 21:27] VITALS: BP 90/51
--- NOTE | 2021-06-06 23:06 | NUR ---
Nursing note The patient was located in his room for his assessment and medication pass. The patient was alert to name, date and location. The patient was pleasant during interactions. The patient took his medication whole. The patient requested PRN Tylenol for a headache with his HS medication. The patient is currently sleeping in his room.
[2021-06-07 05:58] VITALS: BP 104/71
--- NOTE | 2021-06-07 07:39 | PDOC ---
Exam Note: Kal Note: This note is a late entry for 06/06/2021 covers elements not covered in my initial note. Subjective: The patient was seen on telehealth rounds in the evening of 06/06/2021 with Melani BALLARD, reviewed the chart. He denies suicidal ideation, somewhat not happy about moving to a different unit because he wanted a television and a telephone in his room. This has been provided for him. No suicidal ideation. Review of Systems: He has difficulty with ambulation due to Parkinsons. No CV, , eye, ENT system symptoms on review. Mental Status Exam: The patient is reasonably oriented. I thoroughly questioned the patient on suicidal ideation and he denies it and he also denies any psychotic symptoms. Speech moderate latency. Often response is monosyllabic. Abstraction fair. Computation impaired. Language function intact. Mood and affect somewhat withdrawn. Laboratory Data: Reviewed. Impression: Major depressive disorder, recurrent, rule out psychotic features. Anxiety disorder unspecified. Plan: Continue current psychotropics. Assessment: Vital Signs/I&O: Vital Signs Date Time Temp Pulse Resp B/P (MAP) Pulse Ox O2 Delivery O2 Flow Rate FiO2 06/07/21 05:58 97.7 72 18 104/71 (82) 95 Room Air I & O 06/06/21 06/06/21 06/07/21 15:00 23:00 07:00 Intake Total 600 ml 720 ml 0 ml Balance 600 ml 720 ml 0 ml Labs: Laboratory Tests Test 06/07/21 07:33 Glucose (Fingerstick) 106 mg/dL (70-99) H Current Medications: Meds: Current Medications Medications (Trade) Dose Ordered Sig/Kaley Route PRN Reason Start Time Stop Time Status Last Admin Dose Admin Carbidopa/Levodopa (Sinemet 25/100) 1 tab BID PO 06/06/21 09:00 06/06/21 19:53 I have reviewed the current psychotropics carefully including drug interactions. Risk benefit ratio favors no change other than as noted in my dictated progress note. Diagnosis: Problems: (1) Anxiety disorder (2) Major depressive disorder, recurrent episode (3) Impulse control disorder LUTHER WARNER MD Jun 07, 2021 07:39
[2021-06-07] MEDS: metFORMIN 500 MG TABLET PO SCH (08:13)
[2021-06-07] MEDS: busPIRone 10 MG TABLET. PO SCH ×3 (08:13→20:51)
[2021-06-07] MEDS: clonazePAM 0.5 MG TABLET PO SCH ×2 (08:15→20:54)
[2021-06-07] MEDS: lamoTRIgine 100 MG TABLET. PO SCH ×2 (08:16→20:50)
[2021-06-07] MEDS: QUEtiapine 50 MG TABLET. PO SCH (08:16)
[2021-06-07] MEDS: ASCORBIC ACID 1,000 MG TABLET PO SCH (08:16)
[2021-06-07] MEDS: ZINC SULFATE 220 MG CAPSULE. PO SCH (08:16)
[2021-06-07] MEDS: CARBIDOPA/LEVODOPA 25/100MG TABLET PO SCH ×2 (08:16→20:50)
[2021-06-07] MEDS: FOLIC ACID 1 MG TABLET PO SCH (08:16)
[2021-06-07] MEDS: ASPIRIN CHEWABLE 81 MG TABLET. PO SCH (08:16)
[2021-06-07] MEDS: FAMOTIDINE 20 MG TABLET PO SCH ×2 (08:16→20:51)
[2021-06-07] MEDS: CITALOPRAM 20 MG TABLET. PO SCH (08:16)
[2021-06-07] MEDS: LISINOPRIL 5 MG TABLET. PO SCH (08:17)
[2021-06-07 11:22] VITALS: BP 120/84
[2021-06-07] MEDS: QUEtiapine 100 MG TABLET. PO SCH ×2 (13:59→20:51)
--- NOTE | 2021-06-07 14:20 | NUR ---
BRANDAN sent referrals to [facility] , [facility], and [facility].
[2021-06-07] MEDS: ACETAMINOPHEN 325 MG TABLET PO PRN ×2 (14:41→20:51)
[2021-06-07 15:18] VITALS: BP 101/66
--- NOTE | 2021-06-07 16:19 | NUR ---
Nursing note: Patient is cooperative with assessment. He was compliant with medications taken whole. He is alert and oriented X4, calm, pleasant, & cooperative. He walks independently with walker, staying in room due to being in isolation for COVID. Patient denies AH, HI, or self harm thoughts. He reported 7/10 headache in the afternoon, PRN given per order. He is currently sitting in bed talking on phone, call light in reach. Will continue to monitor.
--- NOTE | 2021-06-07 19:37 | PN ---
DATE: 06/07/2021 ATTENDING PHYSICIAN: Dr. Toth. SUBJECTIVE: No new complaints. He is alert. He has no symptoms. He denies any shortness of breath, fevers or chills. OBJECTIVE FINDINGS: VITAL SIGNS: Blood pressure this morning is 104/71, pulse is 72 and regular. He is afebrile. Oxygen saturation 95% on room air. HEENT: Head is without trauma. Pupils are reactive. Sclerae nonicteric. The oropharynx is clear. NECK: Supple, no bruits identified. LUNGS: Clear. CARDIOVASCULAR: Regular heart tones. ABDOMEN: Soft. EXTREMITIES: Without edema. NEUROLOGIC FINDINGS: Focally intact. Speech is fluent. He is a little more alert today having more facial features. ASSESSMENT: 1. A 61-year-old gentleman with COVID positive swab. He has been vaccinated. He is totally asymptomatic and remains asymptomatic. 2. Underlying Parkinson's disease, advanced. 3. Bipolar disorder. 4. Behavioral issues. 5. Psychosis, improved. 6. Questionable diabetes. 7. History of bilateral electrical brain implant. PLAN: 1. Recs per Psychiatry and Neurology. 2. Diet as tolerated. 3. We are undergoing quarantine for the required duration on the medical floor. MABEL DR: Uriah TID: [id number]
[2021-06-07] MEDS: ATORVASTATIN CALCIUM 20 MG TABLET PO SCH (20:50)
--- NOTE | 2021-06-07 21:21 | PDOC ---
Exam Note: Kal Note: Please also refer to the separate dictated note~for this date of service dictated separately.~Patient seen individually. Discussed the patient with Nursing staff reviewed the chart.~Reviewed interim history and current functioning. Reviewed vital signs,~Labs/ Radiology~and current medications noted below. Continue current treatment with the changes noted in the dictated addendum note Assessment: Vital Signs/I&O: Vital Signs Date Time Temp Pulse Resp B/P (MAP) Pulse Ox O2 Delivery O2 Flow Rate FiO2 06/07/21 15:18 97.4 92 18 101/66 (78) 96 Room Air I & O 06/06/21 06/06/21 06/07/21 15:00 23:00 07:00 Intake Total 600 ml 720 ml 0 ml Balance 600 ml 720 ml 0 ml Labs: Laboratory Tests Test 06/07/21 07:33 Glucose (Fingerstick) 106 mg/dL (70-99) H Current Medications: Meds: Laboratory Tests Test 06/07/21 07:33 Glucose (Fingerstick) 106 mg/dL Current Medications Medications (Trade) Dose Ordered Sig/Kaley Route PRN Reason Start Time Stop Time Status Last Admin Dose Admin Guaifenesin (Mucinex Er) 1,200 mg BID PO 06/04/21 21:00 06/07/21 20:50 Ascorbic Acid (Vitamin C) 1,000 mg DAILY PO 06/05/21 09:00 06/07/21 08:16 Zinc Sulfate (Orazinc) 220 mg DAILY PO 06/05/21 09:00 06/07/21 08:16 Acetaminophen (Tylenol) 650 mg PRN Q6HRS PRN PO MILD PAIN / TEMP > 100.3'F 06/04/21 19:00 06/07/21 20:51 Aspirin (Aspirin Chewable) 81 mg DAILY PO 06/05/21 09:00 06/07/21 08:16 Atorvastatin Calcium (Lipitor) 20 mg QHS PO 06/04/21 21:00 06/07/21 20:50 Carbidopa/Levodopa (Sinemet 25/100) 1 tab BID94 PO 06/05/21 09:00 06/04/21 21:14 DC Clonazepam (KlonoPIN) 0.5 mg BID PO 06/04/21 21:00 06/07/21 20:54 Famotidine (Pepcid) 20 mg BID PO 06/04/21 21:00 06/07/21 20:51 Folic Acid (Folic Acid) 1 mg DAILY PO 06/05/21 09:00 06/07/21 08:16 Metformin HCl (Glucophage) 1,000 mg DAILY PO 06/05/21 09:00 06/07/21 08:13 Citalopram Hydrobromide (CeleXA) 40 mg DAILY PO 06/05/21 09:00 06/07/21 08:16 Non-Formulary Medication (Escitalopram Oxalate ) 20 mg DAILY PO 06/05/21 09:00 UNV Lamotrigine (LaMICtal) 200 mg BID PO 06/04/21 21:00 06/07/21 20:50 Non-Formulary Medication (Lamotrigine ) 200 mg BID PO 06/04/21 21:00 UNV Non-Formulary Medication (Lisinopril ) 2.5 mg DAILY PO 06/05/21 09:00 UNV Lisinopril (Prinivil) 2.5 mg DAILY PO 06/05/21 09:00 06/07/21 08:17 Non-Formulary Medication (Metformin HCl (Metformin HCl ER)) 1,000 mg DAILY PO 06/05/21 09:00 UNV Buspirone HCl (Buspar) 20 mg TID PO 06/04/21 21:30 06/07/21 20:51 Carbidopa/Levodopa (Sinemet 25/100) 1 tab QID PO 06/04/21 21:30 06/05/21 21:31 DC 06/05/21 19:43 Quetiapine Fumarate (SEROquel) 300 mg QHS PO 06/04/21 21:30 06/07/21 20:51 Quetiapine Fumarate (SEROquel) 50 mg DAILY PO 06/05/21 09:00 06/07/21 08:16 Quetiapine Fumarate (SEROquel) 100 mg DAILY@1400 PO 06/05/21 14:00 06/07/21 13:59 Carbidopa/Levodopa (Sinemet 25/100) 1 tab BID PO 06/06/21 09:00 06/07/21 20:50 I have reviewed the current psychotropics carefully including drug interactions. Risk benefit ratio favors no change other than as noted in my dictated progress note. Diagnosis: Problems: (1) Psychotic disorder (2) COVID-19 (3) Anxiety disorder (4) Major depressive disorder, recurrent episode (5) Impulse control disorder LUTHER WARNER MD Jun 07, 2021 21:21
[2021-06-07 21:22] VITALS: BP 110/66
[2021-06-08 05:26] VITALS: BP 108/72
--- NOTE | 2021-06-08 06:46 | PDOC ---
Exam Note: Kal Note: This note is a late entry for 06/07/2021 covers elements not covered in my initial note. Subjective: The patient was seen on telehealth rounds on 06/07/2021 with Tanya BALLARD, reviewed the chart. He slept reasonably well. Overall he is somewhat withdrawn. Denies any hallucinations or suicidal ideation. Review of Systems: No CV, , eye, ENT system symptoms on review. Mental Status Exam: The patient is oriented to himself and situation. Speech has some latency, coherent. Abstraction fair. Computation impaired. Language function intact. Mood and affect is improved. He does have parkinsonian facial expression but little more animated today than yesterday. Laboratory Data: Reviewed. Impression: Major depressive disorder, recurrent, rule out psychotic features. Anxiety disorder unspecified. Plan: Continue current psychotropics. He remains on BuSpar, Klonopin, Lamictal, Seroquel and Celexa, Sinemet for Parkinsons. Assessment: Vital Signs/I&O: Vital Signs Date Time Temp Pulse Resp B/P (MAP) Pulse Ox O2 Delivery O2 Flow Rate FiO2 06/08/21 05:26 97.7 76 18 108/72 (84) 95 06/07/21 22:35 Room Air I & O 06/07/21 06/07/21 06/08/21 14:59 22:59 06:59 Intake Total 960 ml 720 ml 0 ml Balance 960 ml 720 ml 0 ml Labs: Laboratory Tests Test 06/07/21 07:33 Glucose (Fingerstick) 106 mg/dL (70-99) H Current Medications: Meds: Laboratory Tests Test 06/07/21 07:33 Glucose (Fingerstick) 106 mg/dL Current Medications Medications (Trade) Dose Ordered Sig/Kaley Route PRN Reason Start Time Stop Time Status Last Admin Dose Admin Guaifenesin (Mucinex Er) 1,200 mg BID PO 06/04/21 21:00 06/07/21 20:50 Ascorbic Acid (Vitamin C) 1,000 mg DAILY PO 06/05/21 09:00 06/07/21 08:16 Zinc Sulfate (Orazinc) 220 mg DAILY PO 06/05/21 09:00 06/07/21 08:16 Acetaminophen (Tylenol) 650 mg PRN Q6HRS PRN PO MILD PAIN / TEMP > 100.3'F 06/04/21 19:00 06/07/21 20:51 Aspirin (Aspirin Chewable) 81 mg DAILY PO 06/05/21 09:00 06/07/21 08:16 Atorvastatin Calcium (Lipitor) 20 mg QHS PO 06/04/21 21:00 06/07/21 20:50 Carbidopa/Levodopa (Sinemet 25/100) 1 tab BID94 PO 06/05/21 09:00 06/04/21 21:14 DC Clonazepam (KlonoPIN) 0.5 mg BID PO 06/04/21 21:00 06/07/21 20:54 Famotidine (Pepcid) 20 mg BID PO 06/04/21 21:00 06/07/21 20:51 Folic Acid (Folic Acid) 1 mg DAILY PO 06/05/21 09:00 06/07/21 08:16 Metformin HCl (Glucophage) 1,000 mg DAILY PO 06/05/21 09:00 06/07/21 08:13 Citalopram Hydrobromide (CeleXA) 40 mg DAILY PO 06/05/21 09:00 06/07/21 08:16 Non-Formulary Medication (Escitalopram Oxalate ) 20 mg DAILY PO 06/05/21 09:00 UNV Lamotrigine (LaMICtal) 200 mg BID PO 06/04/21 21:00 06/07/21 20:50 Non-Formulary Medication (Lamotrigine ) 200 mg BID PO 06/04/21 21:00 UNV Non-Formulary Medication (Lisinopril ) 2.5 mg DAILY PO 06/05/21 09:00 UNV Lisinopril (Prinivil) 2.5 mg DAILY PO 06/05/21 09:00 06/07/21 08:17 Non-Formulary Medication (Metformin HCl (Metformin HCl ER)) 1,000 mg DAILY PO 06/05/21 09:00 UNV Buspirone HCl (Buspar) 20 mg TID PO 06/04/21 21:30 06/07/21 20:51 Carbidopa/Levodopa (Sinemet 25/100) 1 tab QID PO 06/04/21 21:30 06/05/21 21:31 DC 06/05/21 19:43 Quetiapine Fumarate (SEROquel) 300 mg QHS PO 06/04/21 21:30 06/07/21 20:51 Quetiapine Fumarate (SEROquel) 50 mg DAILY PO 06/05/21 09:00 06/07/21 08:16 Quetiapine Fumarate (SEROquel) 100 mg DAILY@1400 PO 06/05/21 14:00 06/07/21 13:59 Carbidopa/Levodopa (Sinemet 25/100) 1 tab BID PO 06/06/21 09:00 06/07/21 20:50 I have reviewed the current psychotropics carefully including drug interactions. Risk benefit ratio favors no change other than as noted in my dictated progress note. Diagnosis: Problems: (1) Major depressive disorder with psychotic features (2) COVID-19 (3) Psychotic disorder (4) Anxiety disorder (5) Impulse control disorder LUTHER WARNER MD Jun 08, 2021 06:46
[2021-06-08] MEDS: lamoTRIgine 100 MG TABLET. PO SCH ×2 (07:59→20:48)
[2021-06-08] MEDS: CITALOPRAM 20 MG TABLET. PO SCH (07:59)
[2021-06-08] MEDS: ZINC SULFATE 220 MG CAPSULE. PO SCH (08:00)
[2021-06-08] MEDS: metFORMIN 500 MG TABLET PO SCH (08:00)
[2021-06-08] MEDS: CARBIDOPA/LEVODOPA 25/100MG TABLET PO SCH ×2 (08:00→20:48)
[2021-06-08] MEDS: clonazePAM 0.5 MG TABLET PO SCH ×2 (08:00→20:48)
[2021-06-08] MEDS: FAMOTIDINE 20 MG TABLET PO SCH ×2 (08:00→20:48)
[2021-06-08] MEDS: QUEtiapine 50 MG TABLET. PO SCH (08:00)
[2021-06-08] MEDS: ASPIRIN CHEWABLE 81 MG TABLET. PO SCH (08:00)
[2021-06-08] MEDS: busPIRone 10 MG TABLET. PO SCH ×3 (08:01→20:46)
[2021-06-08] MEDS: ASCORBIC ACID 1,000 MG TABLET PO SCH (08:01)
[2021-06-08] MEDS: FOLIC ACID 1 MG TABLET PO SCH (08:01)
[2021-06-08] MEDS: LISINOPRIL 5 MG TABLET. PO SCH (08:02)
[2021-06-08 13:01] VITALS: BP 108/72
[2021-06-08 13:02] VITALS: BP 138/73
[2021-06-08] MEDS: QUEtiapine 100 MG TABLET. PO SCH ×2 (13:17→20:46)
--- NOTE | 2021-06-08 15:33 | NUR ---
Day Shift Nurse Note: Pt presents with pleasant mood/affect. Pt is noted to spend time watching tv in his room. Pt is able to make needs known to staff. Pt is medication compliant. Pt is cooperative with unit rules/routines. Pts vitals are WNL. Pt slept 7.25 hours last night. Pt continues to have a good appetite. Will continue to monitor.
[2021-06-08] MEDS: ATORVASTATIN CALCIUM 20 MG TABLET PO SCH (20:46)
--- NOTE | 2021-06-08 20:54 | PDOC ---
Exam Note: Kal Note: Please also refer to the separate dictated note~for this date of service dictated separately.~Patient seen individually. Discussed the patient with Nursing staff reviewed the chart.~Reviewed interim history and current functioning. Reviewed vital signs,~Labs/ Radiology~and current medications noted below. Continue current treatment with the changes noted in the dictated addendum note Assessment: Vital Signs/I&O: Vital Signs Date Time Temp Pulse Resp B/P (MAP) Pulse Ox O2 Delivery O2 Flow Rate FiO2 06/08/21 18:39 97.8 06/08/21 13:02 83 18 138/73 (94) 92 Room Air I & O 06/07/21 06/07/21 06/08/21 15:00 23:00 07:00 Intake Total 960 ml 720 ml 0 ml Balance 960 ml 720 ml 0 ml Labs: Laboratory Tests Test 06/08/21 07:52 Glucose (Fingerstick) 116 mg/dL (70-99) H Current Medications: Meds: Laboratory Tests Test 06/08/21 07:52 Glucose (Fingerstick) 116 mg/dL Current Medications Medications (Trade) Dose Ordered Sig/Kaley Route PRN Reason Start Time Stop Time Status Last Admin Dose Admin Guaifenesin (Mucinex Er) 1,200 mg BID PO 06/04/21 21:00 06/08/21 20:46 Ascorbic Acid (Vitamin C) 1,000 mg DAILY PO 06/05/21 09:00 06/08/21 08:01 Zinc Sulfate (Orazinc) 220 mg DAILY PO 06/05/21 09:00 06/08/21 08:00 Acetaminophen (Tylenol) 650 mg PRN Q6HRS PRN PO MILD PAIN / TEMP > 100.3'F 06/04/21 19:00 06/07/21 20:51 Aspirin (Aspirin Chewable) 81 mg DAILY PO 06/05/21 09:00 06/08/21 08:00 Atorvastatin Calcium (Lipitor) 20 mg QHS PO 06/04/21 21:00 06/08/21 20:46 Carbidopa/Levodopa (Sinemet 25/100) 1 tab BID94 PO 06/05/21 09:00 06/04/21 21:14 DC Clonazepam (KlonoPIN) 0.5 mg BID PO 06/04/21 21:00 06/08/21 20:48 Famotidine (Pepcid) 20 mg BID PO 06/04/21 21:00 06/08/21 20:48 Folic Acid (Folic Acid) 1 mg DAILY PO 06/05/21 09:00 06/08/21 08:01 Metformin HCl (Glucophage) 1,000 mg DAILY PO 06/05/21 09:00 06/08/21 08:00 Citalopram Hydrobromide (CeleXA) 40 mg DAILY PO 06/05/21 09:00 06/08/21 07:59 Non-Formulary Medication (Escitalopram Oxalate ) 20 mg DAILY PO 06/05/21 09:00 UNV Lamotrigine (LaMICtal) 200 mg BID PO 06/04/21 21:00 06/08/21 20:48 Non-Formulary Medication (Lamotrigine ) 200 mg BID PO 06/04/21 21:00 UNV Non-Formulary Medication (Lisinopril ) 2.5 mg DAILY PO 06/05/21 09:00 UNV Lisinopril (Prinivil) 2.5 mg DAILY PO 06/05/21 09:00 06/08/21 08:02 Non-Formulary Medication (Metformin HCl (Metformin HCl ER)) 1,000 mg DAILY PO 06/05/21 09:00 UNV Buspirone HCl (Buspar) 20 mg TID PO 06/04/21 21:30 06/08/21 20:46 Carbidopa/Levodopa (Sinemet 25/100) 1 tab QID PO 06/04/21 21:30 06/05/21 21:31 DC 06/05/21 19:43 Quetiapine Fumarate (SEROquel) 300 mg QHS PO 06/04/21 21:30 06/08/21 20:46 Quetiapine Fumarate (SEROquel) 50 mg DAILY PO 06/05/21 09:00 06/08/21 08:00 Quetiapine Fumarate (SEROquel) 100 mg DAILY@1400 PO 06/05/21 14:00 06/08/21 13:17 Carbidopa/Levodopa (Sinemet 25/100) 1 tab BID PO 06/06/21 09:00 06/08/21 20:48 I have reviewed the current psychotropics carefully including drug interactions. Risk benefit ratio favors no change other than as noted in my dictated progress note. Diagnosis: Problems: (1) COVID-19 (2) Psychotic disorder (3) Anxiety disorder (4) Major depressive disorder, recurrent episode (5) Impulse control disorder LUTHER WARNER MD Jun 08, 2021 20:54
[2021-06-09 00:14] VITALS: BP 104/59
--- NOTE | 2021-06-09 05:24 | NUR ---
Nursing Note The patient continues to be calm and cooperative. Medication is taken whole and the patient is alert to name, date and location. currently sleeping in his room.
[2021-06-09 06:22] VITALS: BP 93/53
[2021-06-09] MEDS: CARBIDOPA/LEVODOPA 25/100MG TABLET PO SCH ×2 (08:12→20:40)
[2021-06-09] MEDS: LISINOPRIL 5 MG TABLET. PO SCH (08:13)
[2021-06-09] MEDS: FAMOTIDINE 20 MG TABLET PO SCH ×2 (08:13→20:40)
[2021-06-09] MEDS: QUEtiapine 50 MG TABLET. PO SCH (08:13)
[2021-06-09] MEDS: ASCORBIC ACID 1,000 MG TABLET PO SCH (08:13)
[2021-06-09] MEDS: busPIRone 10 MG TABLET. PO SCH ×3 (08:13→20:40)
[2021-06-09] MEDS: ZINC SULFATE 220 MG CAPSULE. PO SCH (08:14)
[2021-06-09] MEDS: metFORMIN 500 MG TABLET PO SCH (08:14)
[2021-06-09] MEDS: ASPIRIN CHEWABLE 81 MG TABLET. PO SCH (08:14)
[2021-06-09] MEDS: clonazePAM 0.5 MG TABLET PO SCH ×2 (08:14→20:40)
[2021-06-09] MEDS: lamoTRIgine 100 MG TABLET. PO SCH ×2 (08:14→20:41)
[2021-06-09] MEDS: CITALOPRAM 20 MG TABLET. PO SCH (08:14)
[2021-06-09] MEDS: FOLIC ACID 1 MG TABLET PO SCH (08:14)
[2021-06-09 11:37] VITALS: BP 113/69
--- NOTE | 2021-06-09 13:04 | NUR ---
Nursing note: Pt in his room at time of AM med pass and assessment. He is pleasant, compliant with meds whole and cooperative with assessment. He denies having any pain/concerns. He has spent the morning watching TV and conversing with his roommate. Will continue to monitor.
[2021-06-09] MEDS: QUEtiapine 100 MG TABLET. PO SCH ×2 (13:58→20:40)
[2021-06-09 15:11] VITALS: BP 111/73
[2021-06-09] MEDS: ACETAMINOPHEN 325 MG TABLET PO PRN (17:48)
[2021-06-09] MEDS: ATORVASTATIN CALCIUM 20 MG TABLET PO SCH (20:40)
--- NOTE | 2021-06-09 21:28 | PDOC ---
Exam Note: Kal Note: Please also refer to the separate dictated note~for this date of service dictated separately.~Patient seen individually. Discussed the patient with Nursing staff reviewed the chart.~Reviewed interim history and current functioning. Reviewed vital signs,~Labs/ Radiology~and current medications noted below. Continue current treatment with the changes noted in the dictated addendum note Assessment: Vital Signs/I&O: Vital Signs Date Time Temp Pulse Resp B/P (MAP) Pulse Ox O2 Delivery O2 Flow Rate FiO2 06/09/21 15:11 97.5 88 16 111/73 (86) 95 Room Air I & O 06/08/21 06/08/21 06/09/21 15:00 23:00 07:00 Intake Total 600 ml 480 ml Balance 600 ml 480 ml Labs: Laboratory Tests Test 06/09/21 07:36 Glucose (Fingerstick) 118 mg/dL (70-99) H Current Medications: I have reviewed the current psychotropics carefully including drug interactions. Risk benefit ratio favors no change other than as noted in my dictated progress note. Diagnosis: Problems: (1) Psychotic disorder (2) Anxiety disorder (3) Major depressive disorder, recurrent episode (4) Impulse control disorder (5) Bipolar affective, mixed LUTHER WARNER MD Jun 09, 2021 21:28
[2021-06-09 21:52] VITALS: BP 118/74
[2021-06-10 06:41] VITALS: BP 94/55
--- NOTE | 2021-06-10 06:53 | PDOC ---
Exam Note: Kal Note: This note is a late entry for 06/08/2021 covers elements not covered in my initial note. Subjective: The patient was seen on telehealth rounds on 06/08/2021 with Philip BALLARD, discussed and reviewed the chart. Reviewed interim history and current functioning. Overall patient is doing reasonably well. He has been pleasant, cooperative, well oriented. No hallucinations or suicidal ideation. He has been more animated as well. Review of Systems: Ambulation somewhat impaired. No CV, , eye, ENT system symptoms on review. Mental Status Exam: The patient is reasonably oriented. Speech has some latency, coherent. Abstraction fair. Computation impaired. Language function intact. Attention span short. Mood and affect seems more animated. No suicidal or homicidal ideation. Laboratory Data: Reviewed. Impression: Major depressive disorder, recurrent, rule out psychotic features. Anxiety disorder unspecified. Plan: Continue current psychotropics. Reviewed drug interactions, risk-benefit ratio favors no change at this time. Patient is relatively stable and perhaps can be transitioned to the [facility] directly after he finishes his Covid isolation on this unit unless a placement still needs to be secured per social service staff. We will discuss this with social service staff for disposition options. Assessment: Vital Signs/I&O: Vital Signs Date Time Temp Pulse Resp B/P (MAP) Pulse Ox O2 Delivery O2 Flow Rate FiO2 06/10/21 06:41 97.0 95 16 94/55 (68) 95 06/10/21 01:52 Room Air l I & O 06/09/21 06/09/21 06/10/21 14:59 22:59 06:59 Intake Total 600 ml 360 ml 0 ml Balance 600 ml 360 ml 0 ml Labs: Laboratory Tests Test 06/09/21 07:36 Glucose (Fingerstick) 118 mg/dL (70-99) H Current Medications: Meds: Laboratory Tests Test 06/09/21 07:36 Glucose (Fingerstick) 118 mg/dL Current Medications Medications (Trade) Dose Ordered Sig/Kaley Route PRN Reason Start Time Stop Time Status Last Admin Dose Admin Guaifenesin (Mucinex Er) 1,200 mg BID PO 06/04/21 21:00 06/09/21 20:40 Ascorbic Acid (Vitamin C) 1,000 mg DAILY PO 06/05/21 09:00 06/09/21 08:13 Zinc Sulfate (Orazinc) 220 mg DAILY PO 06/05/21 09:00 06/09/21 08:14 Acetaminophen (Tylenol) 650 mg PRN Q6HRS PRN PO MILD PAIN / TEMP > 100.3'F 06/04/21 19:00 06/09/21 17:48 Aspirin (Aspirin Chewable) 81 mg DAILY PO 06/05/21 09:00 06/09/21 08:14 Atorvastatin Calcium (Lipitor) 20 mg QHS PO 06/04/21 21:00 06/09/21 20:40 Carbidopa/Levodopa (Sinemet 25/100) 1 tab BID94 PO 06/05/21 09:00 06/04/21 21:14 DC Clonazepam (KlonoPIN) 0.5 mg BID PO 06/04/21 21:00 06/09/21 20:40 Famotidine (Pepcid) 20 mg BID PO 06/04/21 21:00 06/09/21 20:40 Folic Acid (Folic Acid) 1 mg DAILY PO 06/05/21 09:00 06/09/21 08:14 Metformin HCl (Glucophage) 1,000 mg DAILY PO 06/05/21 09:00 06/09/21 08:14 Citalopram Hydrobromide (CeleXA) 40 mg DAILY PO 06/05/21 09:00 06/09/21 08:14 Non-Formulary Medication (Escitalopram Oxalate ) 20 mg DAILY PO 06/05/21 09:00 UNV Lamotrigine (LaMICtal) 200 mg BID PO 06/04/21 21:00 06/09/21 20:41 Non-Formulary Medication (Lamotrigine ) 200 mg BID PO 06/04/21 21:00 UNV Non-Formulary Medication (Lisinopril ) 2.5 mg DAILY PO 06/05/21 09:00 UNV Lisinopril (Prinivil) 2.5 mg DAILY PO 06/05/21 09:00 06/08/21 08:02 Non-Formulary Medication (Metformin HCl (Metformin HCl ER)) 1,000 mg DAILY PO 06/05/21 09:00 UNV Buspirone HCl (Buspar) 20 mg TID PO 06/04/21 21:30 06/09/21 20:40 Carbidopa/Levodopa (Sinemet 25/100) 1 tab QID PO 06/04/21 21:30 06/05/21 21:31 DC 06/05/21 19:43 Quetiapine Fumarate (SEROquel) 300 mg QHS PO 06/04/21 21:30 06/09/21 20:40 Quetiapine Fumarate (SEROquel) 50 mg DAILY PO 06/05/21 09:00 06/09/21 08:13 Quetiapine Fumarate (SEROquel) 100 mg DAILY@1400 PO 06/05/21 14:00 06/09/21 13:58 Carbidopa/Levodopa (Sinemet 25/100) 1 tab BID PO 06/06/21 09:00 06/09/21 20:40 I have reviewed the current psychotropics carefully including drug interactions. Risk benefit ratio favors no change other than as noted in my dictated progress note. Diagnosis: Problems: (1) Major depressive disorder with psychotic features (2) COVID-19 (3) Psychotic disorder (4) Anxiety disorder (5) Impulse control disorder LUTHER WARNER MD Jun 10, 2021 06:53
[2021-06-10] MEDS: metFORMIN 500 MG TABLET PO SCH (07:44)
[2021-06-10] MEDS: QUEtiapine 50 MG TABLET. PO SCH (07:45)
[2021-06-10] MEDS: ASCORBIC ACID 1,000 MG TABLET PO SCH (07:45)
[2021-06-10] MEDS: busPIRone 10 MG TABLET. PO SCH ×3 (07:45→20:13)
[2021-06-10] MEDS: ASPIRIN CHEWABLE 81 MG TABLET. PO SCH (07:45)
[2021-06-10] MEDS: clonazePAM 0.5 MG TABLET PO SCH ×2 (07:45→20:11)
[2021-06-10] MEDS: CITALOPRAM 20 MG TABLET. PO SCH (07:45)
[2021-06-10] MEDS: CARBIDOPA/LEVODOPA 25/100MG TABLET PO SCH ×2 (07:45→20:12)
[2021-06-10] MEDS: FOLIC ACID 1 MG TABLET PO SCH (07:46)
[2021-06-10] MEDS: LISINOPRIL 5 MG TABLET. PO SCH (07:46)
[2021-06-10] MEDS: FAMOTIDINE 20 MG TABLET PO SCH ×2 (07:46→20:11)
[2021-06-10] MEDS: ZINC SULFATE 220 MG CAPSULE. PO SCH (07:46)
[2021-06-10] MEDS: lamoTRIgine 100 MG TABLET. PO SCH ×2 (07:46→20:13)
--- NOTE | 2021-06-10 10:16 | NUR ---
Nursing note: Pt preparing for breakfast at time of AM med pass and assessment. He is pleasant, compliant with meds whole and cooperative with assessment. He denies having any pain/concerns. He has spent the morning watching TV and conversing with his roommate. He is currently in his room doing exercises. Will continue to monitor.
[2021-06-10 12:40] VITALS: BP 111/66
[2021-06-10] MEDS: QUEtiapine 100 MG TABLET. PO SCH ×2 (13:19→20:11)
[2021-06-10 15:45] VITALS: BP 125/76
[2021-06-10] MEDS: ACETAMINOPHEN 325 MG TABLET PO PRN (17:46)
[2021-06-10] MEDS: ATORVASTATIN CALCIUM 20 MG TABLET PO SCH (20:12)
--- NOTE | 2021-06-10 21:14 | PDOC ---
Exam Note: Kal Note: Please also refer to the separate dictated note~for this date of service dictated separately.~Patient seen individually. Discussed the patient with Nursing staff reviewed the chart.~Reviewed interim history and current functioning. Reviewed vital signs,~Labs/ Radiology~and current medications noted below. Continue current treatment with the changes noted in the dictated addendum note Assessment: Vital Signs/I&O: Vital Signs Date Time Temp Pulse Resp B/P (MAP) Pulse Ox O2 Delivery O2 Flow Rate FiO2 06/10/21 15:45 97.6 87 20 125/76 (92) 95 06/10/21 08:00 Room Air I & O 06/09/21 06/09/21 06/10/21 15:00 23:00 07:00 Intake Total 600 ml 360 ml 0 ml Balance 600 ml 360 ml 0 ml Labs: Laboratory Tests Test 06/10/21 07:35 Glucose (Fingerstick) 102 mg/dL (70-99) H Current Medications: Meds: Laboratory Tests Test 06/10/21 07:35 Glucose (Fingerstick) 102 mg/dL Current Medications Medications (Trade) Dose Ordered Sig/Kaley Route PRN Reason Start Time Stop Time Status Last Admin Dose Admin Guaifenesin (Mucinex Er) 1,200 mg BID PO 06/04/21 21:00 06/10/21 20:12 Ascorbic Acid (Vitamin C) 1,000 mg DAILY PO 06/05/21 09:00 06/10/21 07:45 Zinc Sulfate (Orazinc) 220 mg DAILY PO 06/05/21 09:00 06/10/21 07:46 Acetaminophen (Tylenol) 650 mg PRN Q6HRS PRN PO MILD PAIN / TEMP > 100.3'F 06/04/21 19:00 06/10/21 17:46 Aspirin (Aspirin Chewable) 81 mg DAILY PO 06/05/21 09:00 06/10/21 07:45 Atorvastatin Calcium (Lipitor) 20 mg QHS PO 06/04/21 21:00 06/10/21 20:12 Carbidopa/Levodopa (Sinemet 25/100) 1 tab BID94 PO 06/05/21 09:00 06/04/21 21:14 DC Clonazepam (KlonoPIN) 0.5 mg BID PO 06/04/21 21:00 06/10/21 20:11 Famotidine (Pepcid) 20 mg BID PO 06/04/21 21:00 06/10/21 20:11 Folic Acid (Folic Acid) 1 mg DAILY PO 06/05/21 09:00 06/10/21 07:46 Metformin HCl (Glucophage) 1,000 mg DAILY PO 06/05/21 09:00 06/10/21 07:44 Citalopram Hydrobromide (CeleXA) 40 mg DAILY PO 06/05/21 09:00 06/10/21 07:45 Non-Formulary Medication (Escitalopram Oxalate ) 20 mg DAILY PO 06/05/21 09:00 UNV Lamotrigine (LaMICtal) 200 mg BID PO 06/04/21 21:00 06/10/21 20:13 Non-Formulary Medication (Lamotrigine ) 200 mg BID PO 06/04/21 21:00 UNV Non-Formulary Medication (Lisinopril ) 2.5 mg DAILY PO 06/05/21 09:00 UNV Lisinopril (Prinivil) 2.5 mg DAILY PO 06/05/21 09:00 06/08/21 08:02 Non-Formulary Medication (Metformin HCl (Metformin HCl ER)) 1,000 mg DAILY PO 06/05/21 09:00 UNV Buspirone HCl (Buspar) 20 mg TID PO 06/04/21 21:30 06/10/21 20:13 Carbidopa/Levodopa (Sinemet 25/100) 1 tab QID PO 06/04/21 21:30 06/05/21 21:31 DC 06/05/21 19:43 Quetiapine Fumarate (SEROquel) 300 mg QHS PO 06/04/21 21:30 06/10/21 20:11 Quetiapine Fumarate (SEROquel) 50 mg DAILY PO 06/05/21 09:00 06/10/21 07:45 Quetiapine Fumarate (SEROquel) 100 mg DAILY@1400 PO 06/05/21 14:00 06/10/21 13:19 Carbidopa/Levodopa (Sinemet 25/100) 1 tab BID PO 06/06/21 09:00 06/10/21 20:12 I have reviewed the current psychotropics carefully including drug interactions. Risk benefit ratio favors no change other than as noted in my dictated progress note. Diagnosis: Problems: (1) COVID-19 (2) Psychotic disorder (3) Anxiety disorder (4) Impulse control disorder LUTHER WARNER MD Jun 10, 2021 21:14
--- NOTE | 2021-06-10 22:30 | NUR ---
Patient is located in his room on assumption of care, sitting in bed and watching television. He is alert and oriented x 4. Pleasant, appropriate, compliant with assessments and medications whole. He denies any thoughts of SI or self harm. Denies any pain or discomfort so far this shift. Patient appears to be sleeping comfortably at present time. Will continue to monitor.
[2021-06-11 06:38] VITALS: BP 109/72
--- NOTE | 2021-06-11 07:24 | PDOC ---
Exam Note: Kal Note: This note is a late entry for 06/09/2021 covers elements not covered in my initial note. Subjective: The patient was seen on telehealth rounds on 06/09/2021 with Teetee BALLARD, discussed and reviewed the chart. Reviewed interim history and current functioning. Overall patient is doing reasonably well. He has been pleasant, cooperative. No psychotic symptoms or suicidal ideation. Review of Systems: Ambulation somewhat impaired. No CV, , eye, ENT system symptoms on review. Mental Status Exam: The patient is reasonably oriented. Speech coherent. Abstraction fair. Computation impaired. Language function intact. Attention span short. Mood and affect seems more animated. No suicidal or homicidal ideation. Laboratory Data: Reviewed. Impression: Major depressive disorder, recurrent, rule out psychotic features. Anxiety disorder unspecified. Plan: Continue current psychotropics. Assessment: Vital Signs/I&O: Vital Signs Date Time Temp Pulse Resp B/P (MAP) Pulse Ox O2 Delivery O2 Flow Rate FiO2 06/11/21 06:38 97.1 75 16 109/72 (84) 96 06/10/21 20:00 Room Air I & O 06/10/21 06/10/21 06/11/21 15:00 23:00 07:00 Intake Total 860 ml 600 ml Balance 860 ml 600 ml Labs: Laboratory Tests Test 06/10/21 07:35 Glucose (Fingerstick) 102 mg/dL (70-99) H Current Medications: Meds: Laboratory Tests Test 06/10/21 07:35 Glucose (Fingerstick) 102 mg/dL Current Medications Medications (Trade) Dose Ordered Sig/Kaley Route PRN Reason Start Time Stop Time Status Last Admin Dose Admin Guaifenesin (Mucinex Er) 1,200 mg BID PO 06/04/21 21:00 06/10/21 20:12 Ascorbic Acid (Vitamin C) 1,000 mg DAILY PO 06/05/21 09:00 06/10/21 07:45 Zinc Sulfate (Orazinc) 220 mg DAILY PO 06/05/21 09:00 06/10/21 07:46 Acetaminophen (Tylenol) 650 mg PRN Q6HRS PRN PO MILD PAIN / TEMP > 100.3'F 06/04/21 19:00 06/10/21 17:46 Aspirin (Aspirin Chewable) 81 mg DAILY PO 06/05/21 09:00 06/10/21 07:45 Atorvastatin Calcium (Lipitor) 20 mg QHS PO 06/04/21 21:00 06/10/21 20:12 Carbidopa/Levodopa (Sinemet 25/100) 1 tab BID94 PO 06/05/21 09:00 06/04/21 21:14 DC Clonazepam (KlonoPIN) 0.5 mg BID PO 06/04/21 21:00 06/10/21 20:11 Famotidine (Pepcid) 20 mg BID PO 06/04/21 21:00 06/10/21 20:11 Folic Acid (Folic Acid) 1 mg DAILY PO 06/05/21 09:00 06/10/21 07:46 Metformin HCl (Glucophage) 1,000 mg DAILY PO 06/05/21 09:00 06/10/21 07:44 Citalopram Hydrobromide (CeleXA) 40 mg DAILY PO 06/05/21 09:00 06/10/21 07:45 Non-Formulary Medication (Escitalopram Oxalate ) 20 mg DAILY PO 06/05/21 09:00 UNV Lamotrigine (LaMICtal) 200 mg BID PO 06/04/21 21:00 06/10/21 20:13 Non-Formulary Medication (Lamotrigine ) 200 mg BID PO 06/04/21 21:00 UNV Non-Formulary Medication (Lisinopril ) 2.5 mg DAILY PO 06/05/21 09:00 UNV Lisinopril (Prinivil) 2.5 mg DAILY PO 06/05/21 09:00 06/08/21 08:02 Non-Formulary Medication (Metformin HCl (Metformin HCl ER)) 1,000 mg DAILY PO 06/05/21 09:00 UNV Buspirone HCl (Buspar) 20 mg TID PO 06/04/21 21:30 06/10/21 20:13 Carbidopa/Levodopa (Sinemet 25/100) 1 tab QID PO 06/04/21 21:30 06/05/21 21:31 DC 06/05/21 19:43 Quetiapine Fumarate (SEROquel) 300 mg QHS PO 06/04/21 21:30 06/10/21 20:11 Quetiapine Fumarate (SEROquel) 50 mg DAILY PO 06/05/21 09:00 06/10/21 07:45 Quetiapine Fumarate (SEROquel) 100 mg DAILY@1400 PO 06/05/21 14:00 06/10/21 13:19 Carbidopa/Levodopa (Sinemet 25/100) 1 tab BID PO 06/06/21 09:00 06/10/21 20:12 I have reviewed the current psychotropics carefully including drug interactions. Risk benefit ratio favors no change other than as noted in my dictated progress note. Diagnosis: Problems: (1) COVID-19 (2) Psychotic disorder (3) Anxiety disorder (4) Major depressive disorder, recurrent episode (5) Impulse control disorder LUTHER WARNER MD Jun 11, 2021 07:24
[2021-06-11] MEDS: clonazePAM 0.5 MG TABLET PO SCH ×2 (07:55→19:26)
[2021-06-11] MEDS: ZINC SULFATE 220 MG CAPSULE. PO SCH (07:55)
[2021-06-11] MEDS: CITALOPRAM 20 MG TABLET. PO SCH (07:56)
[2021-06-11] MEDS: LISINOPRIL 5 MG TABLET. PO SCH (07:56)
[2021-06-11] MEDS: CARBIDOPA/LEVODOPA 25/100MG TABLET PO SCH ×2 (07:56→19:26)
[2021-06-11] MEDS: lamoTRIgine 100 MG TABLET. PO SCH ×2 (07:56→19:28)
[2021-06-11] MEDS: FAMOTIDINE 20 MG TABLET PO SCH ×2 (07:57→19:27)
[2021-06-11] MEDS: busPIRone 10 MG TABLET. PO SCH ×3 (07:57→19:27)
[2021-06-11] MEDS: metFORMIN 500 MG TABLET PO SCH (07:57)
[2021-06-11] MEDS: FOLIC ACID 1 MG TABLET PO SCH (07:57)
[2021-06-11] MEDS: ASPIRIN CHEWABLE 81 MG TABLET. PO SCH (07:57)
[2021-06-11] MEDS: ASCORBIC ACID 1,000 MG TABLET PO SCH (07:57)
[2021-06-11] MEDS: QUEtiapine 50 MG TABLET. PO SCH (07:57)
--- NOTE | 2021-06-11 08:04 | PDOC ---
Exam Note: Kal Note: This note is a late entry for 06/10/2021 covers elements not covered in my initial note. Subjective: The patient was reviewed on 06/10/2021 with Teetee BALLARD, discussed and reviewed the chart. Reviewed interim history and current functioning. He remains quite cooperative, pleasant. Denies suicidal ideation. Mood is improved. No psychotic symptoms. Review of Systems: Ambulation somewhat impaired. No CV, , eye, ENT system symptoms on review. Mental Status Exam: The patient is reasonably oriented. Speech has some latency, coherent. Abstraction fair. Computation impaired. Language function intact. Attention span short. Mood and affect seems more animated. No suicidal or homicidal ideation. Laboratory Data: Reviewed. Impression: Major depressive disorder, recurrent, rule out psychotic features. Anxiety disorder unspecified. Plan: Continue current psychotropics. Assessment: Vital Signs/I&O: Vital Signs Date Time Temp Pulse Resp B/P (MAP) Pulse Ox O2 Delivery O2 Flow Rate FiO2 06/11/21 07:56 75 109/72 06/11/21 06:38 97.1 16 96 06/10/21 20:00 Room Air I & O 06/10/21 06/10/21 06/11/21 15:00 23:00 07:00 Intake Total 860 ml 600 ml Balance 860 ml 600 ml Current Medications: Meds: Current Medications Medications (Trade) Dose Ordered Sig/Kaley Route PRN Reason Start Time Stop Time Status Last Admin Dose Admin Guaifenesin (Mucinex Er) 1,200 mg BID PO 06/04/21 21:00 06/11/21 07:56 Ascorbic Acid (Vitamin C) 1,000 mg DAILY PO 06/05/21 09:00 06/11/21 07:57 Zinc Sulfate (Orazinc) 220 mg DAILY PO 06/05/21 09:00 06/11/21 07:55 Acetaminophen (Tylenol) 650 mg PRN Q6HRS PRN PO MILD PAIN / TEMP > 100.3'F 06/04/21 19:00 06/10/21 17:46 Aspirin (Aspirin Chewable) 81 mg DAILY PO 06/05/21 09:00 06/11/21 07:57 Atorvastatin Calcium (Lipitor) 20 mg QHS PO 06/04/21 21:00 06/10/21 20:12 Carbidopa/Levodopa (Sinemet 25/100) 1 tab BID94 PO 06/05/21 09:00 06/04/21 21:14 DC Clonazepam (KlonoPIN) 0.5 mg BID PO 06/04/21 21:00 06/11/21 07:55 Famotidine (Pepcid) 20 mg BID PO 06/04/21 21:00 06/11/21 07:57 Folic Acid (Folic Acid) 1 mg DAILY PO 06/05/21 09:00 06/11/21 07:57 Metformin HCl (Glucophage) 1,000 mg DAILY PO 06/05/21 09:00 06/11/21 07:57 Citalopram Hydrobromide (CeleXA) 40 mg DAILY PO 06/05/21 09:00 06/11/21 07:56 Non-Formulary Medication (Escitalopram Oxalate ) 20 mg DAILY PO 06/05/21 09:00 UNV Lamotrigine (LaMICtal) 200 mg BID PO 06/04/21 21:00 06/11/21 07:56 Non-Formulary Medication (Lamotrigine ) 200 mg BID PO 06/04/21 21:00 UNV Non-Formulary Medication (Lisinopril ) 2.5 mg DAILY PO 06/05/21 09:00 UNV Lisinopril (Prinivil) 2.5 mg DAILY PO 06/05/21 09:00 06/11/21 07:56 Non-Formulary Medication (Metformin HCl (Metformin HCl ER)) 1,000 mg DAILY PO 06/05/21 09:00 UNV Buspirone HCl (Buspar) 20 mg TID PO 06/04/21 21:30 06/11/21 07:57 Carbidopa/Levodopa (Sinemet 25/100) 1 tab QID PO 06/04/21 21:30 06/05/21 21:31 DC 06/05/21 19:43 Quetiapine Fumarate (SEROquel) 300 mg QHS PO 06/04/21 21:30 06/10/21 20:11 Quetiapine Fumarate (SEROquel) 50 mg DAILY PO 06/05/21 09:00 06/11/21 07:57 Quetiapine Fumarate (SEROquel) 100 mg DAILY@1400 PO 06/05/21 14:00 06/10/21 13:19 Carbidopa/Levodopa (Sinemet 25/100) 1 tab BID PO 06/06/21 09:00 06/11/21 07:56 I have reviewed the current psychotropics carefully including drug interactions. Risk benefit ratio favors no change other than as noted in my dictated progress note. Diagnosis: Problems: (1) COVID-19 (2) Psychotic disorder (3) Anxiety disorder (4) Major depressive disorder, recurrent episode (5) Impulse control disorder LUTHER WARNER MD Jun 11, 2021 08:04
[2021-06-11 11:00] VITALS: BP 113/73
[2021-06-11] MEDS: QUEtiapine 100 MG TABLET. PO SCH ×2 (14:13→19:27)
[2021-06-11] MEDS: ACETAMINOPHEN 325 MG TABLET PO PRN (16:02)
[2021-06-11 16:30] VITALS: BP 112/73
[2021-06-11] MEDS: ATORVASTATIN CALCIUM 20 MG TABLET PO SCH (19:27)
--- NOTE | 2021-06-11 20:18 | PN ---
DATE: 06/11/2021 SUBJECTIVE: The patient is resting, slightly propped up in bed, in no apparent respiratory distress. He is awake, alert. On questioning him, he denied any complaint. The nursing staff did not voice any concern. OBJECTIVE: GENERAL: On examining him, he looked well and was clearly in no apparent respiratory distress. No pallor, jaundice, cyanosis, or thyromegaly. No jugular venous distention. No lower limb edema. VITAL SIGNS: His heart rate was 84, blood pressure was 113/73, temperature 97.4, respiratory rate 12, and oxygen saturation was 95% on room air. HEAD, EYES, EARS, NOSE, AND THROAT: Normocephalic, atraumatic. NECK: Supple. HEART: Normal first and second heart sounds. No gallop, rub, or murmur. CHEST: Clear to auscultation. No crepitation or rhonchi. ABDOMEN: Distended, soft, nontender. NEUROLOGIC: He is demented without any obvious lateralizing sign. LABORATORY DATA: His most recent lab work available showed a serum sodium 142, potassium 3.9, chloride 107, bicarbonate 25, anion gap of 10, BUN 12, creatinine 0.8. Estimated GFR was 98 mL per minute. His glucose 111, calcium was 8.3. Total bilirubin, AST, ALT, alkaline phosphatase were normal. Total protein 6.6, albumin was 3.6. White cell count was 3800, hemoglobin 15, hematocrit 44, MCV 93, and platelet count of 144,000. ASSESSMENT: 1. Asymptomatic COVID-19 infection. 2. Parkinson's disease. 3. Hypertension. 4. Type [address]: Rad TID: [id number]
--- NOTE | 2021-06-11 21:27 | PDOC ---
Exam Note: Kal Note: Please also refer to the separate dictated note~for this date of service dictated separately.~Patient seen individually. Discussed the patient with Nursing staff reviewed the chart.~Reviewed interim history and current functioning. Reviewed vital signs,~Labs/ Radiology~and current medications noted below. Continue current treatment with the changes noted in the dictated addendum note Assessment: Vital Signs/I&O: Vital Signs Date Time Temp Pulse Resp B/P (MAP) Pulse Ox O2 Delivery O2 Flow Rate FiO2 06/11/21 16:30 97.1 81 16 112/73 (86) 96 Room Air I & O 06/10/21 06/10/21 06/11/21 14:59 22:59 06:59 Intake Total 860 ml 600 ml Balance 860 ml 600 ml Labs: Laboratory Tests Test 06/11/21 08:21 Glucose (Fingerstick) 103 mg/dL (70-99) H Current Medications: Meds: Laboratory Tests Test 06/11/21 08:21 Glucose (Fingerstick) 103 mg/dL Current Medications Medications (Trade) Dose Ordered Sig/Kaley Route PRN Reason Start Time Stop Time Status Last Admin Dose Admin Guaifenesin (Mucinex Er) 1,200 mg BID PO 06/04/21 21:00 06/11/21 19:27 Ascorbic Acid (Vitamin C) 1,000 mg DAILY PO 06/05/21 09:00 06/11/21 07:57 Zinc Sulfate (Orazinc) 220 mg DAILY PO 06/05/21 09:00 06/11/21 07:55 Acetaminophen (Tylenol) 650 mg PRN Q6HRS PRN PO MILD PAIN / TEMP > 100.3'F 06/04/21 19:00 06/11/21 16:02 Aspirin (Aspirin Chewable) 81 mg DAILY PO 06/05/21 09:00 06/11/21 07:57 Atorvastatin Calcium (Lipitor) 20 mg QHS PO 06/04/21 21:00 06/11/21 19:27 Carbidopa/Levodopa (Sinemet 25/100) 1 tab BID94 PO 06/05/21 09:00 06/04/21 21:14 DC Clonazepam (KlonoPIN) 0.5 mg BID PO 06/04/21 21:00 06/11/21 19:26 Famotidine (Pepcid) 20 mg BID PO 06/04/21 21:00 06/11/21 19:27 Folic Acid (Folic Acid) 1 mg DAILY PO 06/05/21 09:00 06/11/21 07:57 Metformin HCl (Glucophage) 1,000 mg DAILY PO 06/05/21 09:00 06/11/21 07:57 Citalopram Hydrobromide (CeleXA) 40 mg DAILY PO 06/05/21 09:00 06/11/21 07:56 Non-Formulary Medication (Escitalopram Oxalate ) 20 mg DAILY PO 06/05/21 09:00 UNV Lamotrigine (LaMICtal) 200 mg BID PO 06/04/21 21:00 06/11/21 19:28 Non-Formulary Medication (Lamotrigine ) 200 mg BID PO 06/04/21 21:00 UNV Non-Formulary Medication (Lisinopril ) 2.5 mg DAILY PO 06/05/21 09:00 UNV Lisinopril (Prinivil) 2.5 mg DAILY PO 06/05/21 09:00 06/11/21 07:56 Non-Formulary Medication (Metformin HCl (Metformin HCl ER)) 1,000 mg DAILY PO 06/05/21 09:00 UNV Buspirone HCl (Buspar) 20 mg TID PO 06/04/21 21:30 06/11/21 19:27 Carbidopa/Levodopa (Sinemet 25/100) 1 tab QID PO 06/04/21 21:30 06/05/21 21:31 DC 06/05/21 19:43 Quetiapine Fumarate (SEROquel) 300 mg QHS PO 06/04/21 21:30 06/11/21 19:27 Quetiapine Fumarate (SEROquel) 50 mg DAILY PO 06/05/21 09:00 06/11/21 07:57 Quetiapine Fumarate (SEROquel) 100 mg DAILY@1400 PO 06/05/21 14:00 06/11/21 14:13 Carbidopa/Levodopa (Sinemet 25/100) 1 tab BID PO 06/06/21 09:00 06/11/21 19:26 I have reviewed the current psychotropics carefully including drug interactions. Risk benefit ratio favors no change other than as noted in my dictated progress note. Diagnosis: Problems: (1) COVID-19 (2) Psychotic disorder (3) Anxiety disorder (4) Major depressive disorder, recurrent episode (5) Impulse control disorder LUTHER WARNER MD Jun 11, 2021 21:27
[2021-06-11 22:00] VITALS: BP 112/73
[2021-06-12 05:28] VITALS: BP 107/53
[2021-06-12] MEDS: ASPIRIN CHEWABLE 81 MG TABLET. PO SCH (08:25)
[2021-06-12] MEDS: ZINC SULFATE 220 MG CAPSULE. PO SCH (08:25)
[2021-06-12] MEDS: QUEtiapine 50 MG TABLET. PO SCH (08:25)
[2021-06-12] MEDS: metFORMIN 500 MG TABLET PO SCH (08:25)
[2021-06-12] MEDS: ASCORBIC ACID 1,000 MG TABLET PO SCH (08:26)
[2021-06-12] MEDS: busPIRone 10 MG TABLET. PO SCH ×3 (08:26→19:46)
[2021-06-12] MEDS: CITALOPRAM 20 MG TABLET. PO SCH (08:27)
[2021-06-12] MEDS: FOLIC ACID 1 MG TABLET PO SCH (08:27)
[2021-06-12] MEDS: CARBIDOPA/LEVODOPA 25/100MG TABLET PO SCH ×2 (08:27→19:46)
[2021-06-12] MEDS: LISINOPRIL 5 MG TABLET. PO SCH (08:27)
[2021-06-12] MEDS: FAMOTIDINE 20 MG TABLET PO SCH ×2 (08:27→19:46)
[2021-06-12] MEDS: clonazePAM 0.5 MG TABLET PO SCH ×2 (08:28→20:10)
[2021-06-12] MEDS: lamoTRIgine 100 MG TABLET. PO SCH ×2 (08:28→19:45)
--- NOTE | 2021-06-12 10:50 | NUR ---
Pt appropriate and absent of disruptive behaviors. He denies SI/HI/VH/AH/delusions/pain. He is compliant with whole medications. Appetitive during breakfast appears adequate. He has spent most of the morning napping off and on. Plan of care continues, will pass to next shift.
[2021-06-12 11:23] VITALS: BP 108/68
[2021-06-12] MEDS: QUEtiapine 100 MG TABLET. PO SCH ×2 (13:45→19:45)
[2021-06-12] MEDS: ACETAMINOPHEN 325 MG TABLET PO PRN ×2 (14:51→20:10)
--- NOTE | 2021-06-12 14:52 | NUR ---
Pt c/o 01/04 headache. PRN Acetaminophen 650 mg PO administered at his request
[2021-06-12 15:59] VITALS: BP 111/74
[2021-06-12] MEDS: ATORVASTATIN CALCIUM 20 MG TABLET PO SCH (19:45)
--- NOTE | 2021-06-12 21:35 | PDOC ---
Exam Note: Kal Note: Please also refer to the separate dictated note~for this date of service dictated separately.~Patient seen individually. Discussed the patient with Nursing staff reviewed the chart.~Reviewed interim history and current functioning. Reviewed vital signs,~Labs/ Radiology~and current medications noted below. Continue current treatment with the changes noted in the dictated addendum note Assessment: Vital Signs/I&O: Vital Signs Date Time Temp Pulse Resp B/P (MAP) Pulse Ox O2 Delivery O2 Flow Rate FiO2 06/12/21 18:00 Room Air 06/12/21 15:59 97.5 84 20 111/74 (86) 95 I & O 06/11/21 06/11/21 06/12/21 14:59 22:59 06:59 Intake Total 360 ml 480 ml 0 ml Balance 360 ml 480 ml 0 ml Labs: Laboratory Tests Test 06/12/21 07:42 Glucose (Fingerstick) 96 mg/dL (70-99) Current Medications: Meds: Laboratory Tests Test 06/12/21 07:42 Glucose (Fingerstick) 96 mg/dL Current Medications Medications (Trade) Dose Ordered Sig/Kaley Route PRN Reason Start Time Stop Time Status Last Admin Dose Admin Guaifenesin (Mucinex Er) 1,200 mg BID PO 06/04/21 21:00 06/12/21 19:46 Ascorbic Acid (Vitamin C) 1,000 mg DAILY PO 06/05/21 09:00 06/12/21 08:26 Zinc Sulfate (Orazinc) 220 mg DAILY PO 06/05/21 09:00 06/12/21 08:25 Acetaminophen (Tylenol) 650 mg PRN Q6HRS PRN PO MILD PAIN / TEMP > 100.3'F 06/04/21 19:00 06/12/21 20:10 Aspirin (Aspirin Chewable) 81 mg DAILY PO 06/05/21 09:00 06/12/21 08:25 Atorvastatin Calcium (Lipitor) 20 mg QHS PO 06/04/21 21:00 06/12/21 19:45 Carbidopa/Levodopa (Sinemet 25/100) 1 tab BID94 PO 06/05/21 09:00 06/04/21 21:14 DC Clonazepam (KlonoPIN) 0.5 mg BID PO 06/04/21 21:00 06/12/21 20:10 Famotidine (Pepcid) 20 mg BID PO 06/04/21 21:00 06/12/21 19:46 Folic Acid (Folic Acid) 1 mg DAILY PO 06/05/21 09:00 06/12/21 08:27 Metformin HCl (Glucophage) 1,000 mg DAILY PO 06/05/21 09:00 06/12/21 08:25 Citalopram Hydrobromide (CeleXA) 40 mg DAILY PO 06/05/21 09:00 06/12/21 08:27 Non-Formulary Medication (Escitalopram Oxalate ) 20 mg DAILY PO 06/05/21 09:00 UNV Lamotrigine (LaMICtal) 200 mg BID PO 06/04/21 21:00 06/12/21 19:45 Non-Formulary Medication (Lamotrigine ) 200 mg BID PO 06/04/21 21:00 UNV Non-Formulary Medication (Lisinopril ) 2.5 mg DAILY PO 06/05/21 09:00 UNV Lisinopril (Prinivil) 2.5 mg DAILY PO 06/05/21 09:00 06/12/21 08:27 Non-Formulary Medication (Metformin HCl (Metformin HCl ER)) 1,000 mg DAILY PO 06/05/21 09:00 UNV Buspirone HCl (Buspar) 20 mg TID PO 06/04/21 21:30 06/12/21 19:46 Carbidopa/Levodopa (Sinemet 25/100) 1 tab QID PO 06/04/21 21:30 06/05/21 21:31 DC 06/05/21 19:43 Quetiapine Fumarate (SEROquel) 300 mg QHS PO 06/04/21 21:30 06/12/21 19:45 Quetiapine Fumarate (SEROquel) 50 mg DAILY PO 06/05/21 09:00 06/12/21 08:25 Quetiapine Fumarate (SEROquel) 100 mg DAILY@1400 PO 06/05/21 14:00 06/12/21 13:45 Carbidopa/Levodopa (Sinemet 25/100) 1 tab BID PO 06/06/21 09:00 06/12/21 19:46 I have reviewed the current psychotropics carefully including drug interactions. Risk benefit ratio favors no change other than as noted in my dictated progress note. Diagnosis: Problems: (1) COVID-19 (2) Psychotic disorder (3) Anxiety disorder (4) Major depressive disorder, recurrent episode (5) Impulse control disorder LUTHER WARNER MD Jun 12, 2021 21:35
[2021-06-13 06:00] VITALS: BP 108/65
--- NOTE | 2021-06-13 07:29 | PDOC ---
Exam Note: Kal Note: This note is a late entry for 06/11/2021 covers elements not covered in my initial note. Subjective: The patient seen on telehealth rounds on 06/11/2021 with Jose BALLARD and Sabiha BALLARD on tele-camera around the unit, discussed and reviewed the chart. Reviewed interim history and current functioning. Overall the patient has been fairly pleasant, cooperative, interactive, well oriented. He denies psychotic symptoms, suicidal or homicidal ideation. Review of Systems: Ambulation somewhat impaired. No CV, , eye, ENT system symptoms on review. Movement is effected due to his Parkinsons unchanged from before. Mental Status Exam: The patient is reasonably oriented. Speech coherent. Abstraction fair. Computation impaired. Language function intact. Attention span short. Mood and affect remains withdrawn. No suicidal or homicidal ideation. Laboratory Data: Reviewed. Impression: Major depressive disorder, recurrent, rule out psychotic features. Anxiety disorder unspecified. Plan: Continue current psychotropics. I have discussed with social [facility] and he may transition to a place when this can be arranged directly from the Medical/Surgical floor rather than coming back to [facility]. Assessment: Vital Signs/I&O: Vital Signs Date Time Temp Pulse Resp B/P (MAP) Pulse Ox O2 Delivery O2 Flow Rate FiO2 06/13/21 06:00 98.0 73 18 108/65 (79) 92 Room Air I & O 06/12/21 06/12/21 06/13/21 14:59 22:59 06:59 Intake Total 840 ml 480 ml Balance 840 ml 480 ml Labs: Laboratory Tests Test 06/12/21 07:42 Glucose (Fingerstick) 96 mg/dL (70-99) Current Medications: Meds: Laboratory Tests Test 06/12/21 07:42 Glucose (Fingerstick) 96 mg/dL Current Medications Medications (Trade) Dose Ordered Sig/Kaley Route PRN Reason Start Time Stop Time Status Last Admin Dose Admin Guaifenesin (Mucinex Er) 1,200 mg BID PO 06/04/21 21:00 06/12/21 19:46 Ascorbic Acid (Vitamin C) 1,000 mg DAILY PO 06/05/21 09:00 06/12/21 08:26 Zinc Sulfate (Orazinc) 220 mg DAILY PO 06/05/21 09:00 06/12/21 08:25 Acetaminophen (Tylenol) 650 mg PRN Q6HRS PRN PO MILD PAIN / TEMP > 100.3'F 06/04/21 19:00 06/12/21 20:10 Aspirin (Aspirin Chewable) 81 mg DAILY PO 06/05/21 09:00 06/12/21 08:25 Atorvastatin Calcium (Lipitor) 20 mg QHS PO 06/04/21 21:00 06/12/21 19:45 Carbidopa/Levodopa (Sinemet 25/100) 1 tab BID94 PO 06/05/21 09:00 06/04/21 21:14 DC Clonazepam (KlonoPIN) 0.5 mg BID PO 06/04/21 21:00 06/12/21 20:10 Famotidine (Pepcid) 20 mg BID PO 06/04/21 21:00 06/12/21 19:46 Folic Acid (Folic Acid) 1 mg DAILY PO 06/05/21 09:00 06/12/21 08:27 Metformin HCl (Glucophage) 1,000 mg DAILY PO 06/05/21 09:00 06/12/21 08:25 Citalopram Hydrobromide (CeleXA) 40 mg DAILY PO 06/05/21 09:00 06/12/21 08:27 Non-Formulary Medication (Escitalopram Oxalate ) 20 mg DAILY PO 06/05/21 09:00 UNV Lamotrigine (LaMICtal) 200 mg BID PO 06/04/21 21:00 06/12/21 19:45 Non-Formulary Medication (Lamotrigine ) 200 mg BID PO 06/04/21 21:00 UNV Non-Formulary Medication (Lisinopril ) 2.5 mg DAILY PO 06/05/21 09:00 UNV Lisinopril (Prinivil) 2.5 mg DAILY PO 06/05/21 09:00 06/12/21 08:27 Non-Formulary Medication (Metformin HCl (Metformin HCl ER)) 1,000 mg DAILY PO 06/05/21 09:00 UNV Buspirone HCl (Buspar) 20 mg TID PO 06/04/21 21:30 06/12/21 19:46 Carbidopa/Levodopa (Sinemet 25/100) 1 tab QID PO 06/04/21 21:30 06/05/21 21:31 DC 06/05/21 19:43 Quetiapine Fumarate (SEROquel) 300 mg QHS PO 06/04/21 21:30 06/12/21 19:45 Quetiapine Fumarate (SEROquel) 50 mg DAILY PO 06/05/21 09:00 06/12/21 08:25 Quetiapine Fumarate (SEROquel) 100 mg DAILY@1400 PO 06/05/21 14:00 06/12/21 13:45 Carbidopa/Levodopa (Sinemet 25/100) 1 tab BID PO 06/06/21 09:00 06/12/21 19:46 I have reviewed the current psychotropics carefully including drug interactions. Risk benefit ratio favors no change other than as noted in my dictated progress note. Diagnosis: Problems: (1) COVID-19 (2) Psychotic disorder (3) Anxiety disorder (4) Major depressive disorder, recurrent episode (5) Impulse control disorder LUTHER WARNER MD Jun 13, 2021 07:29
--- NOTE | 2021-06-13 07:47 | PDOC ---
Exam Note: Kal Note: This note is a late entry for 06/12/2021 covers elements not covered in my initial note. Subjective: The patient seen on telehealth rounds on 06/12/2021 with Nallely BALLARD, discussed and reviewed the chart. Reviewed interim history and current functioning. Overall the patient has been doing reasonably well. He is in his room on telehealth rounds, watching the football game between [employer] and [employer]. He was fairly attentive, following the game along, said the score was 23/15 with [employer] winning. He is quite verbal and interactive. Review of Systems: Ambulation somewhat impaired. No CV, , eye, ENT system symptoms on review. Mental Status Exam: The patient is reasonably oriented. Speech coherent. Abstraction fair. Computation impaired. Language function intact. Mood and affect improved. No psychotic symptoms, suicidal or homicidal ideation. Laboratory Data: Reviewed. Impression: Major depressive disorder, recurrent, rule out psychotic features. Anxiety disorder unspecified. Plan: Continue current psychotropics. Assessment: Vital Signs/I&O: Vital Signs Date Time Temp Pulse Resp B/P (MAP) Pulse Ox O2 Delivery O2 Flow Rate FiO2 06/13/21 06:00 98.0 73 18 108/65 (79) 92 Room Air I & O 06/12/21 06/12/21 06/13/21 14:59 22:59 06:59 Intake Total 840 ml 480 ml Balance 840 ml 480 ml Current Medications: Meds: Current Medications Medications (Trade) Dose Ordered Sig/Kaley Route PRN Reason Start Time Stop Time Status Last Admin Dose Admin Guaifenesin (Mucinex Er) 1,200 mg BID PO 06/04/21 21:00 06/12/21 19:46 Ascorbic Acid (Vitamin C) 1,000 mg DAILY PO 06/05/21 09:00 06/12/21 08:26 Zinc Sulfate (Orazinc) 220 mg DAILY PO 06/05/21 09:00 06/12/21 08:25 Acetaminophen (Tylenol) 650 mg PRN Q6HRS PRN PO MILD PAIN / TEMP > 100.3'F 06/04/21 19:00 06/12/21 20:10 Aspirin (Aspirin Chewable) 81 mg DAILY PO 06/05/21 09:00 06/12/21 08:25 Atorvastatin Calcium (Lipitor) 20 mg QHS PO 06/04/21 21:00 06/12/21 19:45 Carbidopa/Levodopa (Sinemet 25/100) 1 tab BID94 PO 06/05/21 09:00 06/04/21 21:14 DC Clonazepam (KlonoPIN) 0.5 mg BID PO 06/04/21 21:00 06/12/21 20:10 Famotidine (Pepcid) 20 mg BID PO 06/04/21 21:00 06/12/21 19:46 Folic Acid (Folic Acid) 1 mg DAILY PO 06/05/21 09:00 06/12/21 08:27 Metformin HCl (Glucophage) 1,000 mg DAILY PO 06/05/21 09:00 06/12/21 08:25 Citalopram Hydrobromide (CeleXA) 40 mg DAILY PO 06/05/21 09:00 06/12/21 08:27 Non-Formulary Medication (Escitalopram Oxalate ) 20 mg DAILY PO 06/05/21 09:00 UNV Lamotrigine (LaMICtal) 200 mg BID PO 06/04/21 21:00 06/12/21 19:45 Non-Formulary Medication (Lamotrigine ) 200 mg BID PO 06/04/21 21:00 UNV Non-Formulary Medication (Lisinopril ) 2.5 mg DAILY PO 06/05/21 09:00 UNV Lisinopril (Prinivil) 2.5 mg DAILY PO 06/05/21 09:00 06/12/21 08:27 Non-Formulary Medication (Metformin HCl (Metformin HCl ER)) 1,000 mg DAILY PO 06/05/21 09:00 UNV Buspirone HCl (Buspar) 20 mg TID PO 06/04/21 21:30 06/12/21 19:46 Carbidopa/Levodopa (Sinemet 25/100) 1 tab QID PO 06/04/21 21:30 06/05/21 21:31 DC 06/05/21 19:43 Quetiapine Fumarate (SEROquel) 300 mg QHS PO 06/04/21 21:30 06/12/21 19:45 Quetiapine Fumarate (SEROquel) 50 mg DAILY PO 06/05/21 09:00 06/12/21 08:25 Quetiapine Fumarate (SEROquel) 100 mg DAILY@1400 PO 06/05/21 14:00 06/12/21 13:45 Carbidopa/Levodopa (Sinemet 25/100) 1 tab BID PO 06/06/21 09:00 06/12/21 19:46 I have reviewed the current psychotropics carefully including drug interactions. Risk benefit ratio favors no change other than as noted in my dictated progress note. Diagnosis: Problems: (1) Major depressive disorder with psychotic features (2) COVID-19 (3) Psychotic disorder (4) Anxiety disorder (5) Impulse control disorder LUTHER WARNER MD Jun 13, 2021 07:47
[2021-06-13] MEDS: CITALOPRAM 20 MG TABLET. PO SCH (08:25)
[2021-06-13] MEDS: metFORMIN 500 MG TABLET PO SCH (08:25)
[2021-06-13] MEDS: clonazePAM 0.5 MG TABLET PO SCH ×2 (08:25→20:30)
[2021-06-13] MEDS: ACETAMINOPHEN 325 MG TABLET PO PRN ×2 (08:25→15:00)
[2021-06-13] MEDS: busPIRone 10 MG TABLET. PO SCH ×3 (08:26→20:31)
[2021-06-13] MEDS: lamoTRIgine 100 MG TABLET. PO SCH ×2 (08:27→20:31)
[2021-06-13] MEDS: ASCORBIC ACID 1,000 MG TABLET PO SCH (08:27)
[2021-06-13] MEDS: FAMOTIDINE 20 MG TABLET PO SCH ×2 (08:27→20:31)
[2021-06-13] MEDS: ASPIRIN CHEWABLE 81 MG TABLET. PO SCH (08:28)
[2021-06-13] MEDS: LISINOPRIL 5 MG TABLET. PO SCH (08:28)
[2021-06-13] MEDS: CARBIDOPA/LEVODOPA 25/100MG TABLET PO SCH ×2 (08:28→20:31)
[2021-06-13] MEDS: FOLIC ACID 1 MG TABLET PO SCH (08:28)
[2021-06-13] MEDS: ZINC SULFATE 220 MG CAPSULE. PO SCH (08:28)
[2021-06-13] MEDS: QUEtiapine 50 MG TABLET. PO SCH (08:29)
[2021-06-13 11:30] VITALS: BP 108/66
[2021-06-13] MEDS: QUEtiapine 100 MG TABLET. PO SCH ×2 (14:00→20:31)
[2021-06-13 14:30] VITALS: BP 110/73
--- NOTE | 2021-06-13 15:00 | NUR ---
Patient complained of headache, prn medication provided per eMAR, will continue to monitor.
[2021-06-13 18:00] VITALS: BP 108/66
[2021-06-13] MEDS: ATORVASTATIN CALCIUM 20 MG TABLET PO SCH (20:31)
--- NOTE | 2021-06-13 21:39 | PDOC ---
Exam Note: Kal Note: Please also refer to the separate dictated note~for this date of service dictated separately.~Patient seen individually. Discussed the patient with Nursing staff reviewed the chart.~Reviewed interim history and current functioning. Reviewed vital signs,~Labs/ Radiology~and current medications noted below. Continue current treatment with the changes noted in the dictated addendum note Assessment: Vital Signs/I&O: Vital Signs Date Time Temp Pulse Resp B/P (MAP) Pulse Ox O2 Delivery O2 Flow Rate FiO2 06/13/21 18:00 97.1 85 16 108/66 (80) 96 Room Air I & O 06/12/21 06/12/21 06/13/21 15:00 23:00 07:00 Intake Total 840 ml 480 ml Balance 840 ml 480 ml Labs: Laboratory Tests Test 06/13/21 07:47 Glucose (Fingerstick) 106 mg/dL (70-99) H Current Medications: Meds: Laboratory Tests Test 06/13/21 07:47 Glucose (Fingerstick) 106 mg/dL Current Medications Medications (Trade) Dose Ordered Sig/Kaley Route PRN Reason Start Time Stop Time Status Last Admin Dose Admin Guaifenesin (Mucinex Er) 1,200 mg BID PO 06/04/21 21:00 06/13/21 20:30 Ascorbic Acid (Vitamin C) 1,000 mg DAILY PO 06/05/21 09:00 06/13/21 08:27 Zinc Sulfate (Orazinc) 220 mg DAILY PO 06/05/21 09:00 06/13/21 08:28 Acetaminophen (Tylenol) 650 mg PRN Q6HRS PRN PO MILD PAIN / TEMP > 100.3'F 06/04/21 19:00 06/13/21 15:00 Aspirin (Aspirin Chewable) 81 mg DAILY PO 06/05/21 09:00 06/13/21 08:28 Atorvastatin Calcium (Lipitor) 20 mg QHS PO 06/04/21 21:00 06/13/21 20:31 Carbidopa/Levodopa (Sinemet 25/100) 1 tab BID94 PO 06/05/21 09:00 06/04/21 21:14 DC Clonazepam (KlonoPIN) 0.5 mg BID PO 06/04/21 21:00 06/13/21 20:30 Famotidine (Pepcid) 20 mg BID PO 06/04/21 21:00 06/13/21 20:31 Folic Acid (Folic Acid) 1 mg DAILY PO 06/05/21 09:00 06/13/21 08:28 Metformin HCl (Glucophage) 1,000 mg DAILY PO 06/05/21 09:00 06/13/21 08:25 Citalopram Hydrobromide (CeleXA) 40 mg DAILY PO 06/05/21 09:00 06/13/21 08:25 Non-Formulary Medication (Escitalopram Oxalate ) 20 mg DAILY PO 06/05/21 09:00 UNV Lamotrigine (LaMICtal) 200 mg BID PO 06/04/21 21:00 06/13/21 20:31 Non-Formulary Medication (Lamotrigine ) 200 mg BID PO 06/04/21 21:00 UNV Non-Formulary Medication (Lisinopril ) 2.5 mg DAILY PO 06/05/21 09:00 UNV Lisinopril (Prinivil) 2.5 mg DAILY PO 06/05/21 09:00 06/13/21 08:28 Non-Formulary Medication (Metformin HCl (Metformin HCl ER)) 1,000 mg DAILY PO 06/05/21 09:00 UNV Buspirone HCl (Buspar) 20 mg TID PO 06/04/21 21:30 06/13/21 20:31 Carbidopa/Levodopa (Sinemet 25/100) 1 tab QID PO 06/04/21 21:30 06/05/21 21:31 DC 06/05/21 19:43 Quetiapine Fumarate (SEROquel) 300 mg QHS PO 06/04/21 21:30 06/13/21 20:31 Quetiapine Fumarate (SEROquel) 50 mg DAILY PO 06/05/21 09:00 06/13/21 08:29 Quetiapine Fumarate (SEROquel) 100 mg DAILY@1400 PO 06/05/21 14:00 06/13/21 14:00 Carbidopa/Levodopa (Sinemet 25/100) 1 tab BID PO 06/06/21 09:00 06/13/21 20:31 I have reviewed the current psychotropics carefully including drug interactions. Risk benefit ratio favors no change other than as noted in my dictated progress note. Diagnosis: Problems: (1) COVID-19 (2) Psychotic disorder (3) Anxiety disorder (4) Major depressive disorder, recurrent episode (5) Impulse control disorder LUTHER WARNER MD Jun 13, 2021 21:39
[2021-06-13 22:25] VITALS: BP 92/56
--- NOTE | 2021-06-13 23:36 | NUR ---
Pt located in his room laying calmly in his bed. Compliant with whole medications. Pleasant and cooperative.
[2021-06-14 06:26] VITALS: BP 107/64
[2021-06-14 06:48] LABS: BASO % 0 % (0-3); EOS # 0.1 x10^3/uL (0.0-0.7); EOS % 2 % (0-3); HEMATOCRIT 44.9 % (39.0-53.0); HEMOGLOBIN 15.4 g/dL (13.0-17.5); LYMPH # 2.3 x10^3/uL (1.0-4.8); LYMPH % 37 % (24-48); MEAN CORPUSCULAR HEMOGLOBIN 32 pg (25-35); MEAN CORPUSCULAR HGB CONC 34 g/dL (31-37); MEAN CORPUSCULAR VOLUME 92 fL (79-100); MONO # 0.4 x10^3/uL (0.0-1.1); MONO % 6 % (0-9); NEUT # 3.3 x10^3uL (1.8-7.7); NEUT % 55 % (31-73); PLATELET COUNT 174 x10^3/uL (140-400); RED BLOOD COUNT 4.88 x10^6/uL (4.30-5.70); RED CELL DISTRIBUTION WIDTH 13.4 % (11.5-14.5); WHITE BLOOD COUNT 6.1 x10^3/uL (4.0-11.0)
[2021-06-14 06:54] LABS: ALBUMIN/GLOBULIN RATIO 1.5 (1.0-1.7); CALCIUM 8.6 mg/dL (8.5-10.1); CREATININE 0.8 mg/dL (0.7-1.3); GFR 98.6; POTASSIUM 3.9 mmol/L (3.5-5.1); TOTAL BILIRUBIN 0.5 mg/dL (0.2-1.0); TOTAL PROTEIN 6.7 g/dL (6.4-8.2)
--- NOTE | 2021-06-14 08:23 | PDOC ---
Exam Note: Kal Note: This note is a late entry for 06/13/2021 covers elements not covered in my initial note. Subjective: The patient seen on telehealth rounds on 06/13/2021 with Trace BALLARD, discussed and reviewed the chart. Reviewed interim history and current functioning. Overall the patient is doing well. I met with him on telehealth rounds. He is quite verbal, interactive. Denied psychotic symptoms or suicidal ideation. Review of Systems: Ambulation somewhat impaired. No CV, , eye, ENT system symptoms on review. Mental Status Exam: The patient is reasonably oriented. Speech coherent. Abstraction fair. Computation impaired. Language function intact. Mood and affect improved. No psychotic symptoms, suicidal or homicidal ideation. Laboratory Data: Reviewed. Impression: Major depressive disorder, recurrent, rule out psychotic features. Anxiety disorder unspecified. Plan: Continue current psychotropics. Assessment: Vital Signs/I&O: Vital Signs Date Time Temp Pulse Resp B/P (MAP) Pulse Ox O2 Delivery O2 Flow Rate FiO2 06/14/21 06:26 98.3 81 16 107/64 (78) 95 06/13/21 20:00 Room Air I & O 06/13/21 06/13/21 06/14/21 15:00 23:00 07:00 Intake Total 840 ml 600 ml 100 ml Balance 840 ml 600 ml 100 ml Labs: Laboratory Tests Test 06/14/21 06:25 06/14/21 08:12 White Blood Count 6.1 x10^3/uL (4.0-11.0) Red Blood Count 4.88 x10^6/uL (4.30-5.70) Hemoglobin 15.4 g/dL (13.0-17.5) Hematocrit 44.9 % (39.0-53.0) Mean Corpuscular Volume 92 fL (79-100) Mean Corpuscular Hemoglobin 32 pg (25-35) Mean Corpuscular Hemoglobin Concent 34 g/dL (31-37) Red Cell Distribution Width 13.4 % (11.5-14.5) Platelet Count 174 x10^3/uL (140-400) Neutrophils (%) (Auto) 55 % (31-73) Lymphocytes (%) (Auto) 37 % (24-48) Monocytes (%) (Auto) 6 % (0-9) Eosinophils (%) (Auto) 2 % (0-3) Basophils (%) (Auto) 0 % (0-3) Neutrophils # (Auto) 3.3 x10^3uL (1.8-7.7) Lymphocytes # (Auto) 2.3 x10^3/uL (1.0-4.8) Monocytes # (Auto) 0.4 x10^3/uL (0.0-1.1) Eosinophils # (Auto) 0.1 x10^3/uL (0.0-0.7) Basophils # (Auto) 0.0 x10^3/uL (0.0-0.2) Sodium Level 145 mmol/L (136-145) Potassium Level 3.9 mmol/L (3.5-5.1) Chloride Level 105 mmol/L (98-107) Carbon Dioxide Level 27 mmol/L (21-32) Anion Gap 13 (6-14) Blood Urea Nitrogen 15 mg/dL (8-26) Creatinine 0.8 mg/dL (0.7-1.3) Estimated GFR (Cockcroft-Gault) 98.6 BUN/Creatinine Ratio 19 (6-20) Glucose Level 108 mg/dL (70-99) H Calcium Level 8.6 mg/dL (8.5-10.1) Total Bilirubin 0.5 mg/dL (0.2-1.0) Aspartate Amino Transferase (AST) 13 U/L (15-37) L Alanine Aminotransferase (ALT) 25 U/L (16-63) Alkaline Phosphatase 99 U/L (46-116) Total Protein 6.7 g/dL (6.4-8.2) Albumin 4.0 g/dL (3.4-5.0) Albumin/Globulin Ratio 1.5 (1.0-1.7) Glucose (Fingerstick) 112 mg/dL (70-99) H Current Medications: Meds: Laboratory Tests Test 06/14/21 06:25 06/14/21 08:12 White Blood Count 6.1 x10^3/uL Red Blood Count 4.88 x10^6/uL Hemoglobin 15.4 g/dL Hematocrit 44.9 % Mean Corpuscular Volume 92 fL Mean Corpuscular Hemoglobin 32 pg Mean Corpuscular Hemoglobin Concent 34 g/dL Red Cell Distribution Width 13.4 % Platelet Count 174 x10^3/uL Neutrophils (%) (Auto) 55 % Lymphocytes (%) (Auto) 37 % Monocytes (%) (Auto) 6 % Eosinophils (%) (Auto) 2 % Basophils (%) (Auto) 0 % Neutrophils # (Auto) 3.3 x10^3uL Lymphocytes # (Auto) 2.3 x10^3/uL Monocytes # (Auto) 0.4 x10^3/uL Eosinophils # (Auto) 0.1 x10^3/uL Basophils # (Auto) 0.0 x10^3/uL Sodium Level 145 mmol/L Potassium Level 3.9 mmol/L Chloride Level 105 mmol/L Carbon Dioxide Level 27 mmol/L Anion Gap 13 Blood Urea Nitrogen 15 mg/dL Creatinine 0.8 mg/dL Estimated GFR (Cockcroft-Gault) 98.6 BUN/Creatinine Ratio 19 Glucose Level 108 mg/dL Calcium Level 8.6 mg/dL Total Bilirubin 0.5 mg/dL Aspartate Amino Transf (AST/SGOT) 13 U/L Alanine Aminotransferase (ALT/SGPT) 25 U/L Alkaline Phosphatase 99 U/L Total Protein 6.7 g/dL Albumin 4.0 g/dL Albumin/Globulin Ratio 1.5 Glucose (Fingerstick) 112 mg/dL Current Medications Medications (Trade) Dose Ordered Sig/Kaley Route PRN Reason Start Time Stop Time Status Last Admin Dose Admin Guaifenesin (Mucinex Er) 1,200 mg BID PO 06/04/21 21:00 06/13/21 20:30 Ascorbic Acid (Vitamin C) 1,000 mg DAILY PO 06/05/21 09:00 06/13/21 08:27 Zinc Sulfate (Orazinc) 220 mg DAILY PO 06/05/21 09:00 06/13/21 08:28 Acetaminophen (Tylenol) 650 mg PRN Q6HRS PRN PO MILD PAIN / TEMP > 100.3'F 06/04/21 19:00 06/13/21 15:00 Aspirin (Aspirin Chewable) 81 mg DAILY PO 06/05/21 09:00 06/13/21 08:28 Atorvastatin Calcium (Lipitor) 20 mg QHS PO 06/04/21 21:00 06/13/21 20:31 Carbidopa/Levodopa (Sinemet 25/100) 1 tab BID94 PO 06/05/21 09:00 06/04/21 21:14 DC Clonazepam (KlonoPIN) 0.5 mg BID PO 06/04/21 21:00 06/13/21 20:30 Famotidine (Pepcid) 20 mg BID PO 06/04/21 21:00 06/13/21 20:31 Folic Acid (Folic Acid) 1 mg DAILY PO 06/05/21 09:00 06/13/21 08:28 Metformin HCl (Glucophage) 1,000 mg DAILY PO 06/05/21 09:00 06/13/21 08:25 Citalopram Hydrobromide (CeleXA) 40 mg DAILY PO 06/05/21 09:00 06/13/21 08:25 Non-Formulary Medication (Escitalopram Oxalate ) 20 mg DAILY PO 06/05/21 09:00 UNV Lamotrigine (LaMICtal) 200 mg BID PO 06/04/21 21:00 06/13/21 20:31 Non-Formulary Medication (Lamotrigine ) 200 mg BID PO 06/04/21 21:00 UNV Non-Formulary Medication (Lisinopril ) 2.5 mg DAILY PO 06/05/21 09:00 UNV Lisinopril (Prinivil) 2.5 mg DAILY PO 06/05/21 09:00 06/13/21 08:28 Non-Formulary Medication (Metformin HCl (Metformin HCl ER)) 1,000 mg DAILY PO 06/05/21 09:00 UNV Buspirone HCl (Buspar) 20 mg TID PO 06/04/21 21:30 06/13/21 20:31 Carbidopa/Levodopa (Sinemet 25/100) 1 tab QID PO 06/04/21 21:30 06/05/21 21:31 DC 06/05/21 19:43 Quetiapine Fumarate (SEROquel) 300 mg QHS PO 06/04/21 21:30 06/13/21 20:31 Quetiapine Fumarate (SEROquel) 50 mg DAILY PO 06/05/21 09:00 06/13/21 08:29 Quetiapine Fumarate (SEROquel) 100 mg DAILY@1400 PO 06/05/21 14:00 06/13/21 14:00 Carbidopa/Levodopa (Sinemet 25/100) 1 tab BID PO 06/06/21 09:00 06/13/21 20:31 I have reviewed the current psychotropics carefully including drug interactions. Risk benefit ratio favors no change other than as noted in my dictated progress note. Diagnosis: Problems: (1) Major depressive disorder with psychotic features (2) COVID-19 (3) Anxiety disorder (4) Impulse control disorder LUTHER WARNER MD Jun 14, 2021 08:23
[2021-06-14] MEDS: metFORMIN 500 MG TABLET PO SCH (08:25)
[2021-06-14] MEDS: FOLIC ACID 1 MG TABLET PO SCH (08:25)
[2021-06-14] MEDS: ASCORBIC ACID 1,000 MG TABLET PO SCH (08:25)
[2021-06-14] MEDS: CARBIDOPA/LEVODOPA 25/100MG TABLET PO SCH ×2 (08:25→19:25)
[2021-06-14] MEDS: ASPIRIN CHEWABLE 81 MG TABLET. PO SCH (08:25)
[2021-06-14] MEDS: QUEtiapine 50 MG TABLET. PO SCH (08:26)
[2021-06-14] MEDS: clonazePAM 0.5 MG TABLET PO SCH ×2 (08:26→19:25)
[2021-06-14] MEDS: ACETAMINOPHEN 325 MG TABLET PO PRN ×2 (08:26→17:40)
[2021-06-14] MEDS: busPIRone 10 MG TABLET. PO SCH ×3 (08:26→19:26)
[2021-06-14] MEDS: CITALOPRAM 20 MG TABLET. PO SCH (08:26)
[2021-06-14] MEDS: FAMOTIDINE 20 MG TABLET PO SCH ×2 (08:26→19:25)
[2021-06-14] MEDS: LISINOPRIL 5 MG TABLET. PO SCH (08:26)
[2021-06-14] MEDS: ZINC SULFATE 220 MG CAPSULE. PO SCH (08:27)
[2021-06-14] MEDS: lamoTRIgine 100 MG TABLET. PO SCH ×2 (08:27→19:25)
[2021-06-14 12:24] VITALS: BP 101/66
[2021-06-14] MEDS: QUEtiapine 100 MG TABLET. PO SCH ×2 (13:56→19:25)
[2021-06-14 15:50] VITALS: BP 117/70
--- NOTE | 2021-06-14 16:06 | NUR ---
Nursing note: Patient is cooperative with assessment. He was compliant with medications taken whole. He is alert and oriented X4, calm, pleasant, & cooperative. He walks independently with walker, staying in room due to being in isolation for COVID. Patient denies AH, HI, or self harm thoughts. He reported 7/10 headache, PRN given per order. He is currently sitting in bed talking on phone, call light in reach. Will continue to monitor.
[2021-06-14] MEDS: ATORVASTATIN CALCIUM 20 MG TABLET PO SCH (19:25)
[2021-06-14 21:10] VITALS: BP 113/80
--- NOTE | 2021-06-14 21:43 | PDOC ---
Exam Note: Kal Note: Please also refer to the separate dictated note~for this date of service dictated separately.~Patient seen individually. Discussed the patient with Nursing staff reviewed the chart.~Reviewed interim history and current functioning. Reviewed vital signs,~Labs/ Radiology~and current medications noted below. Continue current treatment with the changes noted in the dictated addendum note Assessment: Vital Signs/I&O: Vital Signs Date Time Temp Pulse Resp B/P (MAP) Pulse Ox O2 Delivery O2 Flow Rate FiO2 06/14/21 21:10 98.6 80 16 113/80 (91) 95 06/14/21 08:00 Room Air I & O 06/13/21 06/13/21 06/14/21 15:00 23:00 07:00 Intake Total 840 ml 600 ml 100 ml Balance 840 ml 600 ml 100 ml Labs: Laboratory Tests Test 06/14/21 06:25 06/14/21 08:12 White Blood Count 6.1 x10^3/uL (4.0-11.0) Red Blood Count 4.88 x10^6/uL (4.30-5.70) Hemoglobin 15.4 g/dL (13.0-17.5) Hematocrit 44.9 % (39.0-53.0) Mean Corpuscular Volume 92 fL (79-100) Mean Corpuscular Hemoglobin 32 pg (25-35) Mean Corpuscular Hemoglobin Concent 34 g/dL (31-37) Red Cell Distribution Width 13.4 % (11.5-14.5) Platelet Count 174 x10^3/uL (140-400) Neutrophils (%) (Auto) 55 % (31-73) Lymphocytes (%) (Auto) 37 % (24-48) Monocytes (%) (Auto) 6 % (0-9) Eosinophils (%) (Auto) 2 % (0-3) Basophils (%) (Auto) 0 % (0-3) Neutrophils # (Auto) 3.3 x10^3uL (1.8-7.7) Lymphocytes # (Auto) 2.3 x10^3/uL (1.0-4.8) Monocytes # (Auto) 0.4 x10^3/uL (0.0-1.1) Eosinophils # (Auto) 0.1 x10^3/uL (0.0-0.7) Basophils # (Auto) 0.0 x10^3/uL (0.0-0.2) Sodium Level 145 mmol/L (136-145) Potassium Level 3.9 mmol/L (3.5-5.1) Chloride Level 105 mmol/L (98-107) Carbon Dioxide Level 27 mmol/L (21-32) Anion Gap 13 (6-14) Blood Urea Nitrogen 15 mg/dL (8-26) Creatinine 0.8 mg/dL (0.7-1.3) Estimated GFR (Cockcroft-Gault) 98.6 BUN/Creatinine Ratio 19 (6-20) Glucose Level 108 mg/dL (70-99) H Calcium Level 8.6 mg/dL (8.5-10.1) Total Bilirubin 0.5 mg/dL (0.2-1.0) Aspartate Amino Transferase (AST) 13 U/L (15-37) L Alanine Aminotransferase (ALT) 25 U/L (16-63) Alkaline Phosphatase 99 U/L (46-116) Total Protein 6.7 g/dL (6.4-8.2) Albumin 4.0 g/dL (3.4-5.0) Albumin/Globulin Ratio 1.5 (1.0-1.7) Glucose (Fingerstick) 112 mg/dL (70-99) H Current Medications: Meds: Laboratory Tests Test 06/14/21 06:25 06/14/21 08:12 White Blood Count 6.1 x10^3/uL Red Blood Count 4.88 x10^6/uL Hemoglobin 15.4 g/dL Hematocrit 44.9 % Mean Corpuscular Volume 92 fL Mean Corpuscular Hemoglobin 32 pg Mean Corpuscular Hemoglobin Concent 34 g/dL Red Cell Distribution Width 13.4 % Platelet Count 174 x10^3/uL Neutrophils (%) (Auto) 55 % Lymphocytes (%) (Auto) 37 % Monocytes (%) (Auto) 6 % Eosinophils (%) (Auto) 2 % Basophils (%) (Auto) 0 % Neutrophils # (Auto) 3.3 x10^3uL Lymphocytes # (Auto) 2.3 x10^3/uL Monocytes # (Auto) 0.4 x10^3/uL Eosinophils # (Auto) 0.1 x10^3/uL Basophils # (Auto) 0.0 x10^3/uL Sodium Level 145 mmol/L Potassium Level 3.9 mmol/L Chloride Level 105 mmol/L Carbon Dioxide Level 27 mmol/L Anion Gap 13 Blood Urea Nitrogen 15 mg/dL Creatinine 0.8 mg/dL Estimated GFR (Cockcroft-Gault) 98.6 BUN/Creatinine Ratio 19 Glucose Level 108 mg/dL Calcium Level 8.6 mg/dL Total Bilirubin 0.5 mg/dL Aspartate Amino Transf (AST/SGOT) 13 U/L Alanine Aminotransferase (ALT/SGPT) 25 U/L Alkaline Phosphatase 99 U/L Total Protein 6.7 g/dL Albumin 4.0 g/dL Albumin/Globulin Ratio 1.5 Glucose (Fingerstick) 112 mg/dL Current Medications Medications (Trade) Dose Ordered Sig/Kaley Route PRN Reason Start Time Stop Time Status Last Admin Dose Admin Guaifenesin (Mucinex Er) 1,200 mg BID PO 06/04/21 21:00 06/14/21 19:26 Ascorbic Acid (Vitamin C) 1,000 mg DAILY PO 06/05/21 09:00 06/14/21 08:25 Zinc Sulfate (Orazinc) 220 mg DAILY PO 06/05/21 09:00 06/14/21 08:27 Acetaminophen (Tylenol) 650 mg PRN Q6HRS PRN PO MILD PAIN / TEMP > 100.3'F 06/04/21 19:00 06/14/21 17:40 Aspirin (Aspirin Chewable) 81 mg DAILY PO 06/05/21 09:00 06/14/21 08:25 Atorvastatin Calcium (Lipitor) 20 mg QHS PO 06/04/21 21:00 06/14/21 19:25 Carbidopa/Levodopa (Sinemet 25/100) 1 tab BID94 PO 06/05/21 09:00 06/04/21 21:14 DC Clonazepam (KlonoPIN) 0.5 mg BID PO 06/04/21 21:00 06/14/21 19:25 Famotidine (Pepcid) 20 mg BID PO 06/04/21 21:00 06/14/21 19:25 Folic Acid (Folic Acid) 1 mg DAILY PO 06/05/21 09:00 06/14/21 08:25 Metformin HCl (Glucophage) 1,000 mg DAILY PO 06/05/21 09:00 06/14/21 08:25 Citalopram Hydrobromide (CeleXA) 40 mg DAILY PO 06/05/21 09:00 06/14/21 08:26 Non-Formulary Medication (Escitalopram Oxalate ) 20 mg DAILY PO 06/05/21 09:00 UNV Lamotrigine (LaMICtal) 200 mg BID PO 06/04/21 21:00 06/14/21 19:25 Non-Formulary Medication (Lamotrigine ) 200 mg BID PO 06/04/21 21:00 UNV Non-Formulary Medication (Lisinopril ) 2.5 mg DAILY PO 06/05/21 09:00 UNV Lisinopril (Prinivil) 2.5 mg DAILY PO 06/05/21 09:00 06/14/21 08:26 Non-Formulary Medication (Metformin HCl (Metformin HCl ER)) 1,000 mg DAILY PO 06/05/21 09:00 UNV Buspirone HCl (Buspar) 20 mg TID PO 06/04/21 21:30 06/14/21 19:26 Carbidopa/Levodopa (Sinemet 25/100) 1 tab QID PO 06/04/21 21:30 06/05/21 21:31 DC 06/05/21 19:43 Quetiapine Fumarate (SEROquel) 300 mg QHS PO 06/04/21 21:30 06/14/21 19:25 Quetiapine Fumarate (SEROquel) 50 mg DAILY PO 06/05/21 09:00 06/14/21 08:26 Quetiapine Fumarate (SEROquel) 100 mg DAILY@1400 PO 06/05/21 14:00 06/14/21 13:56 Carbidopa/Levodopa (Sinemet 25/100) 1 tab BID PO 06/06/21 09:00 06/14/21 19:25 I have reviewed the current psychotropics carefully including drug interactions. Risk benefit ratio favors no change other than as noted in my dictated progress note. Diagnosis: Problems: (1) Anxiety disorder (2) Major depressive disorder, recurrent episode (3) Impulse control disorder (4) Psychotic disorder LUTHER WARNER MD Jun 14, 2021 21:43
[2021-06-15] MEDS ORDERED: ASCO100019 PO (00:33)
[2021-06-15] MEDS ORDERED: GUAI12003 PO (00:35)
[2021-06-15] MEDS ORDERED: ZINC50TA10 PO (00:36)
[2021-06-15] MEDS ORDERED: BUSP10TA PO (00:38)
[2021-06-15] MEDS ORDERED: QUET100T4 PO (00:39)
[2021-06-15] MEDS ORDERED: QUET50TA5 PO (00:39)
[2021-06-15] MEDS ORDERED: QUET300T5 PO (00:40)
[2021-06-15] MEDS: ACETAMINOPHEN 325 MG TABLET PO PRN ×2 (05:33→12:36)
[2021-06-15 06:04] VITALS: BP 99/66
[2021-06-15] MEDS: lamoTRIgine 100 MG TABLET. PO SCH (08:12)
[2021-06-15] MEDS: ASCORBIC ACID 1,000 MG TABLET PO SCH (08:12)
[2021-06-15] MEDS: QUEtiapine 50 MG TABLET. PO SCH (08:12)
[2021-06-15] MEDS: ZINC SULFATE 220 MG CAPSULE. PO SCH (08:12)
[2021-06-15] MEDS: busPIRone 10 MG TABLET. PO SCH ×2 (08:12→13:52)
[2021-06-15] MEDS: CARBIDOPA/LEVODOPA 25/100MG TABLET PO SCH (08:12)
[2021-06-15] MEDS: CITALOPRAM 20 MG TABLET. PO SCH (08:12)
[2021-06-15] MEDS: clonazePAM 0.5 MG TABLET PO SCH (08:12)
[2021-06-15] MEDS: FAMOTIDINE 20 MG TABLET PO SCH (08:12)
[2021-06-15] MEDS: FOLIC ACID 1 MG TABLET PO SCH (08:12)
[2021-06-15] MEDS: ASPIRIN CHEWABLE 81 MG TABLET. PO SCH (08:12)
[2021-06-15] MEDS: metFORMIN 500 MG TABLET PO SCH (08:13)
[2021-06-15] MEDS: LISINOPRIL 5 MG TABLET. PO SCH (08:14)
--- NOTE | 2021-06-15 08:24 | PDOC ---
Exam Note: Kal Note: This note is a late entry for 06/14/2021 covers elements not covered in my initial note. Subjective: The patient seen on telehealth rounds on 06/14/2021 with Mary Lou Miranda RN, discussed and reviewed the chart. Reviewed interim history and current functioning. Patient slept reasonably well previous night. He has been cooperative on the unit. No hallucinations or suicidal ideation noted per nursing report and he confirmed this with me during the telehealth visit this evening. Review of Systems: Some impairment of ambulation due to Parkinsons. No CV, , eye, ENT system symptoms on review. Mental Status Exam: The patient is reasonably oriented. Speech has some latency, coherent. Abstraction fair. Computation impaired. Language function intact. Attention span fair. Mood and affect improved. He is little more animated. Laboratory Data: Reviewed. Impression: Major depressive disorder, recurrent, rule out psychotic features. Anxiety disorder unspecified. Plan: Continue current psychotropics. He will return back to [facility] tomorrow since he has completed his quarantine for the Covid-19. Assessment: Vital Signs/I&O: Vital Signs Date Time Temp Pulse Resp B/P (MAP) Pulse Ox O2 Delivery O2 Flow Rate FiO2 06/15/21 08:14 75 99/66 06/15/21 06:04 97.6 18 95 06/14/21 20:00 Room Air I & O 06/14/21 06/14/21 06/15/21 15:00 23:00 07:00 Intake Total 960 ml 480 ml 25 ml Balance 960 ml 480 ml 25 ml Labs: Laboratory Tests Test 06/15/21 07:39 Glucose (Fingerstick) 112 mg/dL (70-99) H Current Medications: Meds: Laboratory Tests Test 06/15/21 07:39 Glucose (Fingerstick) 112 mg/dL Current Medications Medications (Trade) Dose Ordered Sig/Kaley Route PRN Reason Start Time Stop Time Status Last Admin Dose Admin Guaifenesin (Mucinex Er) 1,200 mg BID PO 06/04/21 21:00 06/15/21 08:12 Ascorbic Acid (Vitamin C) 1,000 mg DAILY PO 06/05/21 09:00 06/15/21 08:12 Zinc Sulfate (Orazinc) 220 mg DAILY PO 06/05/21 09:00 06/15/21 08:12 Acetaminophen (Tylenol) 650 mg PRN Q6HRS PRN PO MILD PAIN / TEMP > 100.3'F 06/04/21 19:00 06/15/21 05:33 Aspirin (Aspirin Chewable) 81 mg DAILY PO 06/05/21 09:00 06/15/21 08:12 Atorvastatin Calcium (Lipitor) 20 mg QHS PO 06/04/21 21:00 06/14/21 19:25 Carbidopa/Levodopa (Sinemet 25/100) 1 tab BID94 PO 06/05/21 09:00 06/04/21 21:14 DC Clonazepam (KlonoPIN) 0.5 mg BID PO 06/04/21 21:00 06/15/21 08:12 Famotidine (Pepcid) 20 mg BID PO 06/04/21 21:00 06/15/21 08:12 Folic Acid (Folic Acid) 1 mg DAILY PO 06/05/21 09:00 06/15/21 08:12 Metformin HCl (Glucophage) 1,000 mg DAILY PO 06/05/21 09:00 06/15/21 08:13 Citalopram Hydrobromide (CeleXA) 40 mg DAILY PO 06/05/21 09:00 06/15/21 08:12 Non-Formulary Medication (Escitalopram Oxalate ) 20 mg DAILY PO 06/05/21 09:00 UNV Lamotrigine (LaMICtal) 200 mg BID PO 06/04/21 21:00 06/15/21 08:12 Non-Formulary Medication (Lamotrigine ) 200 mg BID PO 06/04/21 21:00 UNV Non-Formulary Medication (Lisinopril ) 2.5 mg DAILY PO 06/05/21 09:00 UNV Lisinopril (Prinivil) 2.5 mg DAILY PO 06/05/21 09:00 06/14/21 08:26 Non-Formulary Medication (Metformin HCl (Metformin HCl ER)) 1,000 mg DAILY PO 06/05/21 09:00 UNV Buspirone HCl (Buspar) 20 mg TID PO 06/04/21 21:30 06/15/21 08:12 Carbidopa/Levodopa (Sinemet 25/100) 1 tab QID PO 06/04/21 21:30 06/05/21 21:31 DC 06/05/21 19:43 Quetiapine Fumarate (SEROquel) 300 mg QHS PO 06/04/21 21:30 06/14/21 19:25 Quetiapine Fumarate (SEROquel) 50 mg DAILY PO 06/05/21 09:00 06/15/21 08:12 Quetiapine Fumarate (SEROquel) 100 mg DAILY@1400 PO 06/05/21 14:00 06/14/21 13:56 Carbidopa/Levodopa (Sinemet 25/100) 1 tab BID PO 06/06/21 09:00 06/15/21 08:12 I have reviewed the current psychotropics carefully including drug interactions. Risk benefit ratio favors no change other than as noted in my dictated progress note. Diagnosis: Problems: (1) Major depressive disorder with psychotic features (2) COVID-19 (3) Psychotic disorder (4) Anxiety disorder (5) Impulse control disorder LUTHER WARNER MD Jun 15, 2021 08:24
--- NOTE | 2021-06-15 10:28 | NUR ---
Nursing note: Pt eating breakfast at time of AM med pass and assessment. He is pleasant, med compliant and cooperative. Pt denies having any pain/concerns. He is currently resting quietly in his bed. Will continue to monitor.
[2021-06-15 11:37] VITALS: BP 110/74
[2021-06-15] MEDS: QUEtiapine 100 MG TABLET. PO SCH (13:52)
--- NOTE | 2021-06-15 14:53 | DS ---
DATE OF DISCHARGE: 06/15/2021 ATTENDING PHYSICIAN: Dr. Toth. FINAL DISCHARGE DIAGNOSES: 1. Asymptomatic COVID-19 infection. 2. Parkinson's disease. 3. Essential hypertension. 3. Type 2 diabetes. HISTORY AND PHYSICAL: The patient is a 61-year-old gentleman from the [facility]. He has been vaccinated. He has underlying Parkinson's disease with some degree of dementia. He had a positive COVID swab, he remained asymptomatic. He was admitted to the medical floor for quarantine. PHYSICAL EXAMINATION: Please see my dictated note. PERTINENT LABORATORY AND X-RAY STUDIES: Admission hemoglobin was 14.9 g/dL, white count 3800. Repeated, it was up to 6100. Electrolytes, BUN and creatinine, blood sugars, transaminases, all within normal range. COURSE IN THE HOSPITAL: The patient was admitted. He was asymptomatic. He did not require any supplemental oxygen. Diet was advanced and home meds continued. He did fairly well. He was quite stable. He finished his quarantine period on the hospital day, arrangements were made for the patient to go back upstairs to the [facility]. Dr. Bey had seen the patient on a daily basis. He recommended continuation of his psychiatric meds including the following: Ascorbic acid, aspirin, Lipitor, BuSpar, Sinemet twice a day now, Klonopin, famotidine, folic acid, Mucinex, Lamictal, lisinopril, metformin, Seroquel and zinc, doses unchanged. The Celexa was increased to 40 mg p.o. daily. For now, we held the 200 mg lamotrigine, lisinopril, and metformin. His prognosis is fair. He is a DNR per advanced directives. The patient was then discharged from our hospital in stable condition with explicit drug and followup care. Total discharge time is 39 minutes. GA/CANDY DR: Uriah TID: [id number] CC: LUTHER BEY MD
[2021-06-15 15:17] VITALS: BP 100/66
--- NOTE | 2021-06-15 16:09 | NUR ---
Discharge Note: BILL SNOWDEN Discharge instructions and discharge home medications reviewed with ELIO Woodward on [facility] and a copy given. All questions have been answered and understanding verbalized. Patient discharged to [facility] with all belongings via wheelchair accompanied by [facility] staff.
== END 2021-06-15 16:14 | disposition short-term general hospital (02) | DRG 178 ==
LOC: 1 SOUTH 16:00 → LND 06-06 16:45
PROVIDERS: ADMIT Hospitalist; ATTEND Hospitalist
DX: U07.1 COVID-19 (principal); F31.60 Bipolar disorder, current episode mixed, unspecified; E11.9 Type 2 diabetes mellitus without complications; F02.80 Dementia in other diseases classified elsewhere, unspecified severity, without behavioral disturbance, psychotic disturbance, mood disturbance, and anxiety; F41.9 Anxiety disorder, unspecified; F63.9 Impulse disorder, unspecified; G20 Parkinson's disease; I10 Essential (primary) hypertension; Z66 Do not resuscitate; Z88.8 Allergy status to other drugs, medicaments and biological substances; Z79.899 Other long term (current) drug therapy
CPT/HCPCS: 36415; 80053; 82947; 85025

== ENCOUNTER 2021-06-15 15:30 | Inpatient (IN) | payer MEDICARE, OTHER ==
[~2021-06-15] VITALS: Ht 182.9 cm; Wt 96.7 kg
[~2021-06-15 15:30] MED LIST changes: +ASCO100019 PO; +BUSP10TA PO; +ESCITALOPRAM OX20 MG PO; +GUAI12003 PO; +METF-639 PO; +QUET300T5 PO; +QUET50TA5 PO; +ZINC50TA10 PO
[2021-06-15 16:42] VITALS: BP 100/66
[2021-06-15 19:27] LABS: BASO % 0 % (0-3); EOS # 0.1 x10^3/uL (0.0-0.7); EOS % 2 % (0-3); HEMATOCRIT 45.1 % (39.0-53.0); HEMOGLOBIN 15.5 g/dL (13.0-17.5); LYMPH # 2.5 x10^3/uL (1.0-4.8); LYMPH % 31 % (24-48); MEAN CORPUSCULAR HEMOGLOBIN 31 pg (25-35); MEAN CORPUSCULAR HGB CONC 34 g/dL (31-37); MEAN CORPUSCULAR VOLUME 91 fL (79-100); MONO # 0.6 x10^3/uL (0.0-1.1); MONO % 7 % (0-9); NEUT # 4.9 x10^3uL (1.8-7.7); NEUT % 61 % (31-73); PLATELET COUNT 201 x10^3/uL (140-400); RED BLOOD COUNT 4.95 x10^6/uL (4.30-5.70); RED CELL DISTRIBUTION WIDTH 13.4 % (11.5-14.5); WHITE BLOOD COUNT 8.1 x10^3/uL (4.0-11.0)
[2021-06-15 19:48] LABS: ALBUMIN/GLOBULIN RATIO 1.3 (1.0-1.7); CALCIUM 8.7 mg/dL (8.5-10.1); CREATININE 0.8 mg/dL (0.7-1.3); GFR 98.6; MAGNESIUM 2.3 mg/dL (1.8-2.4); POTASSIUM 3.8 mmol/L (3.5-5.1); TOTAL BILIRUBIN 0.4 mg/dL (0.2-1.0); TOTAL PROTEIN 7.2 g/dL (6.4-8.2)
[2021-06-15] MEDS ORDERED: MAGNESIUM HYDROXIDE 2,400 MG/30 ML ORAL.SUSP. PO PRN (20:00)
[2021-06-15] MEDS ORDERED: METHYL SALICYLATE/MENTHOL TOPICAL OINTMENT 57GM TUBE. TP PRN (20:00)
[2021-06-15] MEDS ORDERED: MAG HYDROX/AL HYDROX/SIMETH 30 ML ORAL.SUSP PO PRN (20:00)
[2021-06-15] MEDS: FAMOTIDINE 20 MG TABLET PO SCH (20:46)
[2021-06-15] MEDS: busPIRone 10 MG TABLET. PO SCH (20:46)
[2021-06-15] MEDS: clonazePAM 0.5 MG TABLET PO SCH (20:46)
[2021-06-15] MEDS: lamoTRIgine 100 MG TABLET. PO SCH (20:46)
[2021-06-15] MEDS: ATORVASTATIN CALCIUM 20 MG TABLET PO SCH (20:46)
[2021-06-15] MEDS: QUEtiapine 100 MG TABLET. PO SCH (20:46)
[2021-06-15] MEDS: ACETAMINOPHEN 325 MG TABLET PO PRN (20:47)
--- NOTE | 2021-06-15 21:31 | PDOC ---
Exam Note: Kal Note: Please also refer to the separate dictated note~for this date of service dictated separately.~Patient seen individually. Discussed the patient with Nursing staff reviewed the chart.~Reviewed interim history and current functioning. Reviewed vital signs,~Labs/ Radiology~and current medications noted below. Continue current treatment with the changes noted in the dictated addendum note Assessment: Vital Signs/I&O: Vital Signs Date Time Temp Pulse Resp B/P (MAP) Pulse Ox O2 Delivery O2 Flow Rate FiO2 06/15/21 16:42 97.7 94 18 100/66 (77) 95 Labs: Laboratory Tests Test 06/15/21 19:11 White Blood Count 8.1 x10^3/uL (4.0-11.0) Red Blood Count 4.95 x10^6/uL (4.30-5.70) Hemoglobin 15.5 g/dL (13.0-17.5) Hematocrit 45.1 % (39.0-53.0) Mean Corpuscular Volume 91 fL (79-100) Mean Corpuscular Hemoglobin 31 pg (25-35) Mean Corpuscular Hemoglobin Concent 34 g/dL (31-37) Red Cell Distribution Width 13.4 % (11.5-14.5) Platelet Count 201 x10^3/uL (140-400) Neutrophils (%) (Auto) 61 % (31-73) Lymphocytes (%) (Auto) 31 % (24-48) Monocytes (%) (Auto) 7 % (0-9) Eosinophils (%) (Auto) 2 % (0-3) Basophils (%) (Auto) 0 % (0-3) Neutrophils # (Auto) 4.9 x10^3uL (1.8-7.7) Lymphocytes # (Auto) 2.5 x10^3/uL (1.0-4.8) Monocytes # (Auto) 0.6 x10^3/uL (0.0-1.1) Eosinophils # (Auto) 0.1 x10^3/uL (0.0-0.7) Basophils # (Auto) 0.0 x10^3/uL (0.0-0.2) D-Dimer (Marilee) 0.19 mg/L (0.00-0.50) Sodium Level 142 mmol/L (136-145) Potassium Level 3.8 mmol/L (3.5-5.1) Chloride Level 106 mmol/L (98-107) Carbon Dioxide Level 26 mmol/L (21-32) Anion Gap 10 (6-14) Blood Urea Nitrogen 18 mg/dL (8-26) Creatinine 0.8 mg/dL (0.7-1.3) Estimated GFR (Cockcroft-Gault) 98.6 BUN/Creatinine Ratio 23 (6-20) H Glucose Level 123 mg/dL (70-99) H Calcium Level 8.7 mg/dL (8.5-10.1) Magnesium Level 2.3 mg/dL (1.8-2.4) Total Bilirubin 0.4 mg/dL (0.2-1.0) Aspartate Amino Transferase (AST) 14 U/L (15-37) L Alanine Aminotransferase (ALT) 28 U/L (16-63) Alkaline Phosphatase 103 U/L (46-116) Total Protein 7.2 g/dL (6.4-8.2) Albumin 4.0 g/dL (3.4-5.0) Albumin/Globulin Ratio 1.3 (1.0-1.7) Current Medications: Meds: Current Medications Medications (Trade) Dose Ordered Sig/Kaley Route PRN Reason Start Time Stop Time Status Last Admin Dose Admin Atorvastatin Calcium (Lipitor) 20 mg QHS PO 06/15/21 21:00 06/15/21 20:46 Buspirone HCl (Buspar) 20 mg TID PO 06/15/21 21:00 06/15/21 20:46 Clonazepam (KlonoPIN) 0.5 mg BID PO 06/15/21 21:00 06/15/21 20:46 Famotidine (Pepcid) 20 mg BID PO 06/15/21 21:00 06/15/21 20:46 Guaifenesin (Mucinex Er) 1,200 mg BID PO 06/15/21 21:00 06/15/21 20:46 Lamotrigine (LaMICtal) 200 mg BID PO 06/15/21 21:00 06/15/21 20:46 Quetiapine Fumarate (SEROquel) 300 mg HS PO 06/15/21 21:00 06/15/21 20:46 Acetaminophen (Tylenol) 650 mg PRN Q6HRS PRN PO MILD PAIN / TEMP > 100.3'F 06/15/21 20:00 06/15/21 20:47 I have reviewed the current psychotropics carefully including drug interactions. Risk benefit ratio favors no change other than as noted in my dictated progress note. Diagnosis: Problems: (1) Major depressive disorder, recurrent episode (2) Impulse control disorder (3) Anxiety disorder LUTHER WARNER MD Jun 15, 2021 21:31
[2021-06-16 05:41] VITALS: BP 116/70
[2021-06-16] MEDS: ACETAMINOPHEN 325 MG TABLET PO PRN ×2 (06:38→14:13)
[2021-06-16] MEDS: CARBIDOPA/LEVODOPA 25/100MG TABLET PO SCH ×2 (07:48→17:18)
[2021-06-16] MEDS: metFORMIN 500 MG TABLET PO SCH (07:48)
[2021-06-16] MEDS: busPIRone 10 MG TABLET. PO SCH ×3 (07:48→20:24)
[2021-06-16] MEDS: lamoTRIgine 100 MG TABLET. PO SCH ×2 (07:48→20:23)
[2021-06-16] MEDS: CITALOPRAM 20 MG TABLET. PO SCH (07:48)
[2021-06-16] MEDS: ASPIRIN CHEWABLE 81 MG TABLET. PO SCH (07:48)
[2021-06-16] MEDS: clonazePAM 0.5 MG TABLET PO SCH ×2 (07:48→20:25)
[2021-06-16] MEDS: FAMOTIDINE 20 MG TABLET PO SCH ×2 (07:49→20:24)
[2021-06-16] MEDS: ASCORBIC ACID 1,000 MG TABLET PO SCH (07:49)
[2021-06-16] MEDS: FOLIC ACID 1 MG TABLET PO SCH (07:49)
[2021-06-16] MEDS: QUEtiapine 50 MG TABLET. PO SCH (07:49)
[2021-06-16] MEDS: ZINC SULFATE 220 MG CAPSULE. PO SCH (07:49)
[2021-06-16] MEDS: LISINOPRIL 5 MG TABLET. PO SCH (07:49)
[2021-06-16] MEDS: QUEtiapine 100 MG TABLET. PO SCH ×2 (14:15→20:24)
[2021-06-16 16:11] VITALS: BP 124/72
[2021-06-16] MEDS: ATORVASTATIN CALCIUM 20 MG TABLET PO SCH (20:24)
--- NOTE | 2021-06-16 21:51 | PDOC ---
Exam Note: Kal Note: Please also refer to the separate dictated note~for this date of service dictated separately.~Patient seen individually. Discussed the patient with Nursing staff reviewed the chart.~Reviewed interim history and current functioning. Reviewed vital signs,~Labs/ Radiology~and current medications noted below. Continue current treatment with the changes noted in the dictated addendum note Assessment: Vital Signs/I&O: Vital Signs Date Time Temp Pulse Resp B/P (MAP) Pulse Ox O2 Delivery O2 Flow Rate FiO2 06/16/21 16:11 97.8 83 18 124/72 (89) 96 Room Air I & O 06/15/21 06/15/21 06/16/21 15:00 23:00 07:00 Intake Total 900 ml Balance 900 ml Labs: Laboratory Tests Test 06/16/21 07:35 Glucose (Fingerstick) 111 mg/dL (70-99) H Current Medications: Meds: Laboratory Tests Test 06/16/21 07:35 Glucose (Fingerstick) 111 mg/dL Current Medications Medications (Trade) Dose Ordered Sig/Kaley Route PRN Reason Start Time Stop Time Status Last Admin Dose Admin Ascorbic Acid (Vitamin C) 1,000 mg DAILY PO 06/16/21 09:00 06/16/21 07:49 Aspirin (Aspirin Chewable) 81 mg DAILY PO 06/16/21 09:00 06/16/21 07:48 Atorvastatin Calcium (Lipitor) 20 mg QHS PO 06/15/21 21:00 06/16/21 20:24 Buspirone HCl (Buspar) 20 mg TID PO 06/15/21 21:00 06/16/21 20:24 Carbidopa/Levodopa (Sinemet 25/100) 1 tab BID94 PO 06/16/21 09:00 06/16/21 17:18 Clonazepam (KlonoPIN) 0.5 mg BID PO 06/15/21 21:00 06/16/21 20:25 Famotidine (Pepcid) 20 mg BID PO 06/15/21 21:00 06/16/21 20:24 Folic Acid (Folic Acid) 1 mg DAILY PO 06/16/21 09:00 06/16/21 07:49 Metformin HCl (Glucophage) 1,000 mg DAILYWBKFT PO 06/16/21 08:00 06/16/21 07:48 Quetiapine Fumarate (SEROquel) 50 mg DAILY PO 06/16/21 09:00 06/16/21 07:49 Quetiapine Fumarate (SEROquel) 100 mg DAILY@1400 PO 06/16/21 14:00 06/16/21 14:15 Citalopram Hydrobromide (CeleXA) 40 mg DAILY PO 06/16/21 09:00 06/16/21 07:48 Guaifenesin (Mucinex Er) 1,200 mg BID PO 06/15/21 21:00 06/16/21 20:23 Lamotrigine (LaMICtal) 200 mg BID PO 06/15/21 21:00 06/16/21 20:23 Lisinopril (Prinivil) 2.5 mg DAILY PO 06/16/21 09:00 06/16/21 07:49 Quetiapine Fumarate (SEROquel) 300 mg HS PO 06/15/21 21:00 06/16/21 20:24 Zinc Sulfate (Orazinc) 220 mg DAILY PO 06/16/21 09:00 06/16/21 07:49 Acetaminophen (Tylenol) 650 mg PRN Q6HRS PRN PO MILD PAIN / TEMP > 100.3'F 06/15/21 20:00 06/16/21 14:13 Al Hydroxide/Mg Hydroxide (Mylanta Plus Xs) 30 ml PRN AFTMEALHC PRN PO DYSPEPSIA 06/15/21 20:00 Magnesium Hydroxide (Milk Of Magnesia) 2,400 mg PRN QHS PRN PO CONSTIPATION 06/15/21 20:00 Multi-Ingredient Ointment (Analgesic [place]) 1 erum PRN QID PRN TP MUSCLE PAIN 06/15/21 20:00 Current Medications Medications (Trade) Dose Ordered Sig/Kaley Route PRN Reason Start Time Stop Time Status Last Admin Dose Admin Ascorbic Acid (Vitamin C) 1,000 mg DAILY PO 06/16/21 09:00 06/16/21 07:49 Aspirin (Aspirin Chewable) 81 mg DAILY PO 06/16/21 09:00 06/16/21 07:48 Carbidopa/Levodopa (Sinemet 25/100) 1 tab BID94 PO 06/16/21 09:00 06/16/21 17:18 Folic Acid (Folic Acid) 1 mg DAILY PO 06/16/21 09:00 06/16/21 07:49 Metformin HCl (Glucophage) 1,000 mg DAILYWBKFT PO 06/16/21 08:00 06/16/21 07:48 Quetiapine Fumarate (SEROquel) 50 mg DAILY PO 06/16/21 09:00 06/16/21 07:49 Quetiapine Fumarate (SEROquel) 100 mg DAILY@1400 PO 06/16/21 14:00 06/16/21 14:15 Citalopram Hydrobromide (CeleXA) 40 mg DAILY PO 06/16/21 09:00 06/16/21 07:48 Lisinopril (Prinivil) 2.5 mg DAILY PO 06/16/21 09:00 06/16/21 07:49 Zinc Sulfate (Orazinc) 220 mg DAILY PO 06/16/21 09:00 06/16/21 07:49 I have reviewed the current psychotropics carefully including drug interactions. Risk benefit ratio favors no change other than as noted in my dictated progress note. Diagnosis: Problems: (1) Major depressive disorder, recurrent episode (2) Impulse control disorder (3) Anxiety disorder (4) Psychotic disorder LUTHER WARNER MD Jun 16, 2021 21:51
--- NOTE | 2021-06-16 23:07 | HP ---
DATE OF SERVICE: 06/16/2021 ADMIT DATE: 06/15/2021 PSYCHIATRIC ADMISSION HISTORY/EVALUATION This is a late entry, date of service 06/15/2021, covers the elements not covered in my initial note 06/15/2021. REASON FOR ADMISSION/IDENTIFYING DATA: The patient is a 61-year-old male who returns back to [facility] after completing his COVID-19 quarantine on the medical surgical floor. He was initially admitted to the [facility] with psychotic symptoms, suicidal ideation, failure of repeated inpatient psychiatric hospitalizations. He was being stabilized [facility] the [facility], but turned up COVID positive, was transitioned to the medical surgical floor, quarantined and once he completed this, he returns back to us because so far Social Service staff have not being able to obtain placement for him. CHIEF COMPLAINT: "I am doing better. I don't have any hallucinations. No suicidal ideation. I think I am stable for now." HISTORY OF PRESENT ILLNESS: The patient has a history of repeated significant psychotic symptoms, hallucinations, suicidal ideation, which were attributed partially to his antiparkinsonian medications and questionably to early Lewy body dementia. Currently, he is stable on his current psychotropics. No active suicidal or homicidal ideation. Sleep and appetite are fair. PAST PSYCHIATRIC HISTORY: As above and a history of significant symptoms of major depressive disorder. MEDICAL HISTORY: Positive for Parkinson's disease, diabetes mellitus, hypertension, GERD. ACCU-CHEKS: Daily. CODE STATUS: DNR. ALLERGIES: CONTRAST DYE AND PREDNISONE. FAMILY HISTORY: Noncontributory. SOCIAL HISTORY: No alcohol, drug abuse, physical, sexual, elder abuse history is noted. He is not known to be a perpetrator. DIET: Regular. Takes medications whole. Ambulates with walker and is continent. REVIEW OF SYSTEMS: Some difficulty with ambulation. No CV, , pulmonary, eye, ENT system symptoms on review. MENTAL STATUS EXAM: Reasonably oriented. Speech is coherent, has some latency. Abstraction fair. Computation impaired. Language function intact. Mood and affect improved. No clear psychotic symptoms or suicidal ideation. LABORATORY DATA: Reviewed. IMPRESSION: Major depressive disorder with psychotic features, psychotic disorder, unspecified, anxiety disorder, unspecified. Rest as above. PLAN: Admit to Geropsychiatry unit at [facility]. I will see the patient daily individually from a psychiatric standpoint, medical followup with Dr. Nugent/Dr. Toth. Continue the patient on his current psychotropics. Neurology followup with Dr. Orona as before. Adjust further as clinically indicated. ESTIMATED LENGTH OF STAY: 5-7 days. DISPOSITION PLANS: Transition to intermediate when placement arranged. ERICA DR: Axel TID: [id number]
[2021-06-17 05:49] VITALS: BP 132/80
[2021-06-17] MEDS: ACETAMINOPHEN 325 MG TABLET PO PRN ×2 (05:52→17:28)
--- NOTE | 2021-06-17 07:59 | PDOC ---
Exam Note: Kal Note: This note is a late entry for 06/16/2021 covers elements not covered in my initial note. Subjective: The patient was reviewed on telehealth rounds at treatment team meeting in the morning on 06/16/2021 with Leah Zhu, Shandra Díaz, and Kailee Hines (social insurance adviser), Yenifer Yusuf (Senior Peoples[employer] Developer), Sumi, activity therapy, and Morelia BALLARD, discussed and reviewed the chart. Reviewed interim history and current functioning. Also met with the patient in the evening. The patient slept 4-1/2 hours previous night. He has had some mood lability and crying spells. At treatment team meeting we had lengthy discussion about his placement options. He has been refused by several nursing homes because of their concern about his repeated hospitalizations due to his psychosis and suicidal ideation and possibility that they feel his symptoms could be reflective of Lewy body dementia early type. We had lengthy discussion how to get around this to transition him to a nursing facility. Review of Systems: Ambulation impaired. No CV, , eye, ENT system symptoms on review. Mental Status Exam: The patient is reasonably oriented. Speech coherent. Abstraction fair. Computation impaired. Language function intact. Attention span short. Mood and affect wtihdrawn. No suicidal or homicidal ideation. Laboratory Data: Reviewed. Impression: Major depressive disorder, recurrent, rule out psychotic features. Anxiety disorder unspecified. Plan: Continue current psychotropics. Assessment: Vital Signs/I&O: Vital Signs Date Time Temp Pulse Resp B/P (MAP) Pulse Ox O2 Delivery O2 Flow Rate FiO2 06/17/21 05:49 96.9 84 18 132/80 (97) 96 06/16/21 16:11 Room Air I & O 06/16/21 06/16/21 06/17/21 15:00 23:00 07:00 Intake Total 600 ml 480 ml Balance 600 ml 480 ml Current Medications: Meds: Current Medications Medications (Trade) Dose Ordered Sig/Kaley Route PRN Reason Start Time Stop Time Status Last Admin Dose Admin Ascorbic Acid (Vitamin C) 1,000 mg DAILY PO 06/16/21 09:00 06/16/21 07:49 Aspirin (Aspirin Chewable) 81 mg DAILY PO 06/16/21 09:00 06/16/21 07:48 Atorvastatin Calcium (Lipitor) 20 mg QHS PO 06/15/21 21:00 06/16/21 20:24 Buspirone HCl (Buspar) 20 mg TID PO 06/15/21 21:00 06/16/21 20:24 Carbidopa/Levodopa (Sinemet 25/100) 1 tab BID94 PO 06/16/21 09:00 06/16/21 17:18 Clonazepam (KlonoPIN) 0.5 mg BID PO 06/15/21 21:00 06/16/21 20:25 Famotidine (Pepcid) 20 mg BID PO 06/15/21 21:00 06/16/21 20:24 Folic Acid (Folic Acid) 1 mg DAILY PO 06/16/21 09:00 06/16/21 07:49 Metformin HCl (Glucophage) 1,000 mg DAILYWBKFT PO 06/16/21 08:00 06/16/21 07:48 Quetiapine Fumarate (SEROquel) 50 mg DAILY PO 06/16/21 09:00 06/16/21 07:49 Quetiapine Fumarate (SEROquel) 100 mg DAILY@1400 PO 06/16/21 14:00 06/16/21 14:15 Citalopram Hydrobromide (CeleXA) 40 mg DAILY PO 06/16/21 09:00 06/16/21 07:48 Guaifenesin (Mucinex Er) 1,200 mg BID PO 06/15/21 21:00 06/16/21 20:23 Lamotrigine (LaMICtal) 200 mg BID PO 06/15/21 21:00 06/16/21 20:23 Lisinopril (Prinivil) 2.5 mg DAILY PO 06/16/21 09:00 06/16/21 07:49 Quetiapine Fumarate (SEROquel) 300 mg HS PO 06/15/21 21:00 06/16/21 20:24 Zinc Sulfate (Orazinc) 220 mg DAILY PO 06/16/21 09:00 06/16/21 07:49 Acetaminophen (Tylenol) 650 mg PRN Q6HRS PRN PO MILD PAIN / TEMP > 100.3'F 06/15/21 20:00 06/17/21 05:52 Al Hydroxide/Mg Hydroxide (Mylanta Plus Xs) 30 ml PRN AFTMEALHC PRN PO DYSPEPSIA 06/15/21 20:00 Magnesium Hydroxide (Milk Of Magnesia) 2,400 mg PRN QHS PRN PO CONSTIPATION 06/15/21 20:00 Multi-Ingredient Ointment (Analgesic [place]) 1 erum PRN QID PRN TP MUSCLE PAIN 06/15/21 20:00 Current Medications Medications (Trade) Dose Ordered Sig/Kaley Route PRN Reason Start Time Stop Time Status Last Admin Dose Admin Ascorbic Acid (Vitamin C) 1,000 mg DAILY PO 06/16/21 09:00 06/16/21 07:49 Aspirin (Aspirin Chewable) 81 mg DAILY PO 06/16/21 09:00 06/16/21 07:48 Carbidopa/Levodopa (Sinemet 25/100) 1 tab BID94 PO 06/16/21 09:00 06/16/21 17:18 Folic Acid (Folic Acid) 1 mg DAILY PO 06/16/21 09:00 06/16/21 07:49 Metformin HCl (Glucophage) 1,000 mg DAILYWBKFT PO 06/16/21 08:00 06/16/21 07:48 Quetiapine Fumarate (SEROquel) 50 mg DAILY PO 06/16/21 09:00 06/16/21 07:49 Quetiapine Fumarate (SEROquel) 100 mg DAILY@1400 PO 06/16/21 14:00 06/16/21 14:15 Citalopram Hydrobromide (CeleXA) 40 mg DAILY PO 06/16/21 09:00 06/16/21 07:48 Lisinopril (Prinivil) 2.5 mg DAILY PO 06/16/21 09:00 06/16/21 07:49 Zinc Sulfate (Orazinc) 220 mg DAILY PO 06/16/21 09:00 06/16/21 07:49 I have reviewed the current psychotropics carefully including drug interactions. Risk benefit ratio favors no change other than as noted in my dictated progress note. Diagnosis: Problems: (1) Major depressive disorder, recurrent episode (2) Impulse control disorder (3) Anxiety disorder (4) Psychotic disorder LUTHER WARNER MD Jun 17, 2021 07:59
[2021-06-17] MEDS: ASCORBIC ACID 1,000 MG TABLET PO SCH (08:00)
[2021-06-17] MEDS: ASPIRIN CHEWABLE 81 MG TABLET. PO SCH (08:00)
[2021-06-17] MEDS: FOLIC ACID 1 MG TABLET PO SCH (08:00)
[2021-06-17] MEDS: ZINC SULFATE 220 MG CAPSULE. PO SCH (08:00)
[2021-06-17] MEDS: LISINOPRIL 5 MG TABLET. PO SCH (08:01)
[2021-06-17] MEDS: QUEtiapine 50 MG TABLET. PO SCH (08:01)
[2021-06-17] MEDS: CITALOPRAM 20 MG TABLET. PO SCH (08:01)
[2021-06-17] MEDS: CARBIDOPA/LEVODOPA 25/100MG TABLET PO SCH ×2 (08:01→17:15)
[2021-06-17] MEDS: FAMOTIDINE 20 MG TABLET PO SCH ×2 (08:01→19:50)
[2021-06-17] MEDS: metFORMIN 500 MG TABLET PO SCH (08:01)
[2021-06-17] MEDS: clonazePAM 0.5 MG TABLET PO SCH ×2 (08:01→19:52)
[2021-06-17] MEDS: lamoTRIgine 100 MG TABLET. PO SCH ×2 (08:01→19:50)
[2021-06-17] MEDS: busPIRone 10 MG TABLET. PO SCH ×3 (08:02→19:50)
[2021-06-17] MEDS: QUEtiapine 100 MG TABLET. PO SCH ×2 (14:32→19:51)
[2021-06-17 14:35] VITALS: BP 114/73
[2021-06-17] MEDS: ATORVASTATIN CALCIUM 20 MG TABLET PO SCH (19:51)
--- NOTE | 2021-06-17 21:41 | PDOC ---
Exam Note: Kal Note: Please also refer to the separate dictated note~for this date of service dictated separately.~Patient seen individually. Discussed the patient with Nursing staff reviewed the chart.~Reviewed interim history and current functioning. Reviewed vital signs,~Labs/ Radiology~and current medications noted below. Continue current treatment with the changes noted in the dictated addendum note Assessment: Vital Signs/I&O: Vital Signs Date Time Temp Pulse Resp B/P (MAP) Pulse Ox O2 Delivery O2 Flow Rate FiO2 06/17/21 14:35 97.9 92 18 114/73 (87) 97 Room Air I & O 06/16/21 06/16/21 06/17/21 15:00 23:00 07:00 Intake Total 600 ml 480 ml Balance 600 ml 480 ml Current Medications: Meds: Current Medications Medications (Trade) Dose Ordered Sig/Kaley Route PRN Reason Start Time Stop Time Status Last Admin Dose Admin Ascorbic Acid (Vitamin C) 1,000 mg DAILY PO 06/16/21 09:00 06/17/21 08:00 Aspirin (Aspirin Chewable) 81 mg DAILY PO 06/16/21 09:00 06/17/21 08:00 Atorvastatin Calcium (Lipitor) 20 mg QHS PO 06/15/21 21:00 06/17/21 19:51 Buspirone HCl (Buspar) 20 mg TID PO 06/15/21 21:00 06/17/21 19:50 Carbidopa/Levodopa (Sinemet 25/100) 1 tab BID94 PO 06/16/21 09:00 06/17/21 17:15 Clonazepam (KlonoPIN) 0.5 mg BID PO 06/15/21 21:00 06/17/21 19:52 Famotidine (Pepcid) 20 mg BID PO 06/15/21 21:00 06/17/21 19:50 Folic Acid (Folic Acid) 1 mg DAILY PO 06/16/21 09:00 06/17/21 08:00 Metformin HCl (Glucophage) 1,000 mg DAILYWBKFT PO 06/16/21 08:00 06/17/21 08:01 Quetiapine Fumarate (SEROquel) 50 mg DAILY PO 06/16/21 09:00 06/17/21 08:01 Quetiapine Fumarate (SEROquel) 100 mg DAILY@1400 PO 06/16/21 14:00 06/17/21 14:32 Citalopram Hydrobromide (CeleXA) 40 mg DAILY PO 06/16/21 09:00 06/17/21 08:01 Guaifenesin (Mucinex Er) 1,200 mg BID PO 06/15/21 21:00 06/17/21 15:45 DC 06/17/21 08:01 Lamotrigine (LaMICtal) 200 mg BID PO 06/15/21 21:00 06/17/21 19:50 Lisinopril (Prinivil) 2.5 mg DAILY PO 06/16/21 09:00 06/17/21 08:01 Quetiapine Fumarate (SEROquel) 300 mg HS PO 06/15/21 21:00 06/17/21 19:51 Zinc Sulfate (Orazinc) 220 mg DAILY PO 06/16/21 09:00 06/17/21 08:00 Acetaminophen (Tylenol) 650 mg PRN Q6HRS PRN PO MILD PAIN / TEMP > 100.3'F 06/15/21 20:00 06/17/21 17:28 Al Hydroxide/Mg Hydroxide (Mylanta Plus Xs) 30 ml PRN AFTMEALHC PRN PO DYSPEPSIA 06/15/21 20:00 Magnesium Hydroxide (Milk Of Magnesia) 2,400 mg PRN QHS PRN PO CONSTIPATION 06/15/21 20:00 Multi-Ingredient Ointment (Analgesic [place]) 1 erum PRN QID PRN TP MUSCLE PAIN 06/15/21 20:00 I have reviewed the current psychotropics carefully including drug interactions. Risk benefit ratio favors no change other than as noted in my dictated progress note. Diagnosis: Problems: (1) Anxiety disorder (2) Major depressive disorder, recurrent episode (3) Impulse control disorder (4) Psychotic disorder LUTHER WARNER MD Jun 17, 2021 21:41
[2021-06-18 06:09] VITALS: BP 109/71
[2021-06-18] MEDS: metFORMIN 500 MG TABLET PO SCH (08:11)
[2021-06-18] MEDS: lamoTRIgine 100 MG TABLET. PO SCH ×2 (08:11→19:28)
[2021-06-18] MEDS: FAMOTIDINE 20 MG TABLET PO SCH ×2 (08:11→19:27)
[2021-06-18] MEDS: ZINC SULFATE 220 MG CAPSULE. PO SCH (08:11)
[2021-06-18] MEDS: busPIRone 10 MG TABLET. PO SCH ×3 (08:11→19:27)
[2021-06-18] MEDS: QUEtiapine 50 MG TABLET. PO SCH (08:11)
[2021-06-18] MEDS: CARBIDOPA/LEVODOPA 25/100MG TABLET PO SCH ×2 (08:11→16:55)
[2021-06-18] MEDS: ACETAMINOPHEN 325 MG TABLET PO PRN ×2 (08:11→16:56)
[2021-06-18] MEDS: ASPIRIN CHEWABLE 81 MG TABLET. PO SCH (08:12)
[2021-06-18] MEDS: FOLIC ACID 1 MG TABLET PO SCH (08:12)
[2021-06-18] MEDS: LISINOPRIL 5 MG TABLET. PO SCH (08:12)
[2021-06-18] MEDS: CITALOPRAM 20 MG TABLET. PO SCH (08:12)
[2021-06-18] MEDS: ASCORBIC ACID 1,000 MG TABLET PO SCH (08:13)
[2021-06-18] MEDS: clonazePAM 0.5 MG TABLET PO SCH ×2 (08:14→19:28)
[2021-06-18] MEDS: QUEtiapine 100 MG TABLET. PO SCH ×2 (14:07→19:27)
[2021-06-18 15:30] VITALS: BP 101/67
[2021-06-18] MEDS: ATORVASTATIN CALCIUM 20 MG TABLET PO SCH (19:27)
--- NOTE | 2021-06-18 20:40 | PN ---
DATE: 06/18/2021 SUBJECTIVE: The patient was seen today, met with the staff. Chart reviewed and also covering for Dr. Bey. Staff reports continued improvement, not having any major behavior problems, denies of depressed. Overall is pleasant and interacting with the staff. He continues to isolate himself, likes to be left alone. OBSERVATION: VITAL SIGNS: Temperature 97.4, pulse 71, respirations 20, O2 sat 94, blood pressure 109/71. LABORATORY DATA: The patient's lab reviewed, no significant change from prior levels. CURRENT MEDICATIONS: The patient's current medications include Seroquel 100 mg daily, citalopram 40 mg daily, Seroquel 50 mg daily and Seroquel 300 mg at night. The patient is also on Lamictal 200 mg twice a day, clonazepam 0.5 mg twice a day and BuSpar 20 mg 3 times a day. The patient is not having any side effects. The patient is not having any physical complaints. No falls. ASSESSMENT: 1. Major depressive disorder, recurrent. 2. Impulse control disorder. 3. Anxiety disorder. PLAN: Continue with the current treatment plan. Length of stay: Three to five days, awaiting for placement. CLARK DR: Precious TID: [id number]
[2021-06-19 05:37] VITALS: BP 116/71
[2021-06-19] MEDS: clonazePAM 0.5 MG TABLET PO SCH ×2 (08:09→20:10)
[2021-06-19] MEDS: FAMOTIDINE 20 MG TABLET PO SCH ×2 (08:09→20:10)
[2021-06-19] MEDS: busPIRone 10 MG TABLET. PO SCH ×3 (08:09→20:10)
[2021-06-19] MEDS: CITALOPRAM 20 MG TABLET. PO SCH (08:09)
[2021-06-19] MEDS: ASCORBIC ACID 1,000 MG TABLET PO SCH (08:10)
[2021-06-19] MEDS: CARBIDOPA/LEVODOPA 25/100MG TABLET PO SCH ×2 (08:10→16:39)
[2021-06-19] MEDS: LISINOPRIL 5 MG TABLET. PO SCH (08:10)
[2021-06-19] MEDS: ZINC SULFATE 220 MG CAPSULE. PO SCH (08:10)
[2021-06-19] MEDS: metFORMIN 500 MG TABLET PO SCH (08:10)
[2021-06-19] MEDS: FOLIC ACID 1 MG TABLET PO SCH (08:10)
[2021-06-19] MEDS: ASPIRIN CHEWABLE 81 MG TABLET. PO SCH (08:10)
[2021-06-19] MEDS: QUEtiapine 50 MG TABLET. PO SCH (08:11)
[2021-06-19] MEDS: lamoTRIgine 100 MG TABLET. PO SCH ×2 (08:11→20:11)
[2021-06-19] MEDS: ACETAMINOPHEN 325 MG TABLET PO PRN ×2 (08:33→16:40)
[2021-06-19] MEDS: QUEtiapine 100 MG TABLET. PO SCH ×2 (14:15→20:11)
[2021-06-19 16:14] VITALS: BP 105/70
[2021-06-19] MEDS: ATORVASTATIN CALCIUM 20 MG TABLET PO SCH (20:10)
--- NOTE | 2021-06-19 20:30 | PN ---
DATE: 06/19/2021 SUBJECTIVE: The patient was seen today, met with the staff, chart reviewed, and also covering for Dr. Bey. Staff reports no major behavior problems except tendency to isolate himself and also frequently complains of light headaches. OBSERVATION: VITAL SIGNS: Temperature 96.9, blood pressure 116/71, pulse 100, respirations 22, O2 sat 92%. GENERAL: Slept about 7 hours last night. The patient's appetite improved. The patient currently not presenting with any major behavior problems. Not depressed. No negative thoughts. No evidence of any auditory hallucinations. The patient's appetite improved. CURRENT MEDICATIONS: Seroquel 100 mg daily, Celexa 40 mg daily, Seroquel 50 mg daily, and Seroquel 300 mg at night. The patient is also on Lamictal 200 mg twice a day and clonazepam 0.5 mg twice a day and the BuSpar 20 mg 3 times a day. The patient is not having any major complaints. No falls. ASSESSMENT: 1. Major depressive disorder, recurrent. 2. Impulse control disorder. 3. Anxiety disorder, unspecified. PLAN: Continue with the treatment plan. The patient is awaiting for placement. LENGTH OF STAY: Three to five days. FAHAD DR: Precious TID: [id number]
[2021-06-20 06:03] VITALS: BP 118/80
[2021-06-20] MEDS: QUEtiapine 50 MG TABLET. PO SCH (08:43)
[2021-06-20] MEDS: FAMOTIDINE 20 MG TABLET PO SCH ×2 (08:43→20:17)
[2021-06-20] MEDS: CARBIDOPA/LEVODOPA 25/100MG TABLET PO SCH ×2 (08:43→16:28)
[2021-06-20] MEDS: lamoTRIgine 100 MG TABLET. PO SCH ×2 (08:43→20:18)
[2021-06-20] MEDS: clonazePAM 0.5 MG TABLET PO SCH ×2 (08:43→20:19)
[2021-06-20] MEDS: CITALOPRAM 20 MG TABLET. PO SCH (08:43)
[2021-06-20] MEDS: metFORMIN 500 MG TABLET PO SCH (08:43)
[2021-06-20] MEDS: ASPIRIN CHEWABLE 81 MG TABLET. PO SCH (08:43)
[2021-06-20] MEDS: FOLIC ACID 1 MG TABLET PO SCH (08:43)
[2021-06-20] MEDS: ASCORBIC ACID 1,000 MG TABLET PO SCH (08:43)
[2021-06-20] MEDS: busPIRone 10 MG TABLET. PO SCH ×3 (08:43→20:18)
[2021-06-20] MEDS: ZINC SULFATE 220 MG CAPSULE. PO SCH (08:43)
[2021-06-20] MEDS: LISINOPRIL 5 MG TABLET. PO SCH (08:44)
[2021-06-20] MEDS: ACETAMINOPHEN 325 MG TABLET PO PRN ×2 (12:25→20:31)
[2021-06-20] MEDS: QUEtiapine 100 MG TABLET. PO SCH ×2 (13:36→20:19)
[2021-06-20 16:10] VITALS: BP 109/70
[2021-06-20] MEDS: ATORVASTATIN CALCIUM 20 MG TABLET PO SCH (20:19)
--- NOTE | 2021-06-21 02:49 | PN ---
DATE: 06/20/2021 SUBJECTIVE: The patient was seen today and met with the staff. Chart reviewed and also participated in the treatment review meeting. The patient's behavior continues to improve, not having any major medical issues. OBSERVATION: VITAL SIGNS: Temperature 97.1, blood pressure 118/80, pulse 77, respirations 16 and O2 sat 95%. Slept about 9 hours last night. GENERAL: The patient's appetite is normal. The patient has a tendency to isolate himself, but able to relate fairly well with the staff. The patient is mainly concerned about his discharge, not able to leave the hospital. Staff is working towards placement. CURRENT MEDICATIONS: Seroquel 100 mg daily and 300 mg at night and also 50 mg daily. The patient is also on Celexa 40 mg daily, Lamictal 200 mg twice a day, Klonopin 0.5 mg twice a day and BuSpar 20 mg 3 times a day. The patient is not having any side effects to medications. The patient has no major physical complaints except for frequent headaches. LABORATORY DATA: The patient's lab reviewed. ASSESSMENT: 1. Major depressive disorder, recurrent. 2. Impulse control disorder. 3. Anxiety disorder, unspecified. PLAN: To continue with treatment. LENGTH OF STAY: 3 days. The patient is awaiting for placement. PAMELA/KATHLEEN DR: Precious TID: [id number] MTDSosa
[2021-06-21 05:48] VITALS: BP 121/77
[2021-06-21] MEDS: metFORMIN 500 MG TABLET PO SCH (07:32)
[2021-06-21] MEDS: ASCORBIC ACID 1,000 MG TABLET PO SCH (07:32)
[2021-06-21] MEDS: FAMOTIDINE 20 MG TABLET PO SCH ×2 (07:32→20:23)
[2021-06-21] MEDS: lamoTRIgine 100 MG TABLET. PO SCH ×2 (07:32→20:23)
[2021-06-21] MEDS: QUEtiapine 50 MG TABLET. PO SCH (07:33)
[2021-06-21] MEDS: FOLIC ACID 1 MG TABLET PO SCH (07:33)
[2021-06-21] MEDS: LISINOPRIL 5 MG TABLET. PO SCH (07:33)
[2021-06-21] MEDS: CARBIDOPA/LEVODOPA 25/100MG TABLET PO SCH ×2 (07:33→14:45)
[2021-06-21] MEDS: busPIRone 10 MG TABLET. PO SCH ×3 (07:33→20:23)
[2021-06-21] MEDS: CITALOPRAM 20 MG TABLET. PO SCH (07:33)
[2021-06-21] MEDS: ASPIRIN CHEWABLE 81 MG TABLET. PO SCH (07:33)
[2021-06-21] MEDS: ZINC SULFATE 220 MG CAPSULE. PO SCH (07:34)
[2021-06-21] MEDS: clonazePAM 0.5 MG TABLET PO SCH ×2 (07:34→20:22)
[2021-06-21] MEDS: ACETAMINOPHEN 325 MG TABLET PO PRN ×3 (08:00→20:22)
[2021-06-21] MEDS: QUEtiapine 100 MG TABLET. PO SCH ×2 (14:00→20:22)
[2021-06-21 17:23] VITALS: BP 103/67
[2021-06-21] MEDS: ATORVASTATIN CALCIUM 20 MG TABLET PO SCH (20:23)
--- NOTE | 2021-06-22 05:30 | PN ---
DATE: 06/21/2021 SUBJECTIVE: The patient was seen today, met with the staff, chart reviewed, and also covering for Dr. Bey. Staff reports no major behavior problems. Continues to show improvement. He tends to isolate himself in his room. OBSERVATION: VITAL SIGNS: Temperature 97.5, blood pressure 121/77, pulse 78, respirations 16, O2 sat 95%. GENERAL: Slept about 8 hours last night. The patient is not having any physical complaints. The patient is motivated for treatment. CURRENT MEDICATIONS: Include Seroquel 100 mg daily and 300 mg at night and also 50 mg daily. The patient is also on Lamictal 200 mg twice a day, Klonopin 0.5 mg twice a day, BuSpar 20 mg 3 times a day and Celexa 40 mg daily. LABORATORY DATA: The patient's lab reviewed. The patient is not having any side effects to medications. ASSESSMENT: 1. Major depressive disorder, recurrent. 2. Impulse control disorder. 3. Anxiety disorder, unspecified. PLAN: To continue with treatment. LENGTH OF STAY: Three days. The patient is awaiting for placement. LEENA/KAYLYNN/MADELEINE DR: LEENA/parmjit TID: [id number] MTDD
[2021-06-22] MEDS: ACETAMINOPHEN 325 MG TABLET PO PRN ×2 (05:54→17:56)
[2021-06-22 06:04] VITALS: BP 125/86
[2021-06-22 07:37] LABS: BASO % 0 % (0-3); EOS # 0.1 x10^3/uL (0.0-0.7); EOS % 2 % (0-3); HEMATOCRIT 44.8 % (39.0-53.0); HEMOGLOBIN 15.2 g/dL (13.0-17.5); LYMPH # 2.1 x10^3/uL (1.0-4.8); LYMPH % 36 % (24-48); MEAN CORPUSCULAR HEMOGLOBIN 31 pg (25-35); MEAN CORPUSCULAR HGB CONC 34 g/dL (31-37); MEAN CORPUSCULAR VOLUME 93 fL (79-100); MONO # 0.5 x10^3/uL (0.0-1.1); MONO % 8 % (0-9); NEUT # 3.2 x10^3uL (1.8-7.7); NEUT % 53 % (31-73); PLATELET COUNT 203 x10^3/uL (140-400); RED BLOOD COUNT 4.84 x10^6/uL (4.30-5.70); RED CELL DISTRIBUTION WIDTH 13.4 % (11.5-14.5); WHITE BLOOD COUNT 5.9 x10^3/uL (4.0-11.0)
[2021-06-22 07:44] LABS: ALBUMIN/GLOBULIN RATIO 1.5 (1.0-1.7); CALCIUM 8.8 mg/dL (8.5-10.1); CREATININE 0.8 mg/dL (0.7-1.3); GFR 98.6; POTASSIUM 3.9 mmol/L (3.5-5.1); TOTAL BILIRUBIN 0.6 mg/dL (0.2-1.0); TOTAL PROTEIN 6.6 g/dL (6.4-8.2)
[2021-06-22] MEDS: FOLIC ACID 1 MG TABLET PO SCH (08:11)
[2021-06-22] MEDS: ASCORBIC ACID 1,000 MG TABLET PO SCH (08:11)
[2021-06-22] MEDS: CITALOPRAM 20 MG TABLET. PO SCH (08:11)
[2021-06-22] MEDS: lamoTRIgine 100 MG TABLET. PO SCH ×2 (08:11→20:03)
[2021-06-22] MEDS: busPIRone 10 MG TABLET. PO SCH ×3 (08:11→20:03)
[2021-06-22] MEDS: QUEtiapine 50 MG TABLET. PO SCH (08:11)
[2021-06-22] MEDS: FAMOTIDINE 20 MG TABLET PO SCH ×2 (08:11→20:03)
[2021-06-22] MEDS: ASPIRIN CHEWABLE 81 MG TABLET. PO SCH (08:12)
[2021-06-22] MEDS: CARBIDOPA/LEVODOPA 25/100MG TABLET PO SCH ×2 (08:12→15:10)
[2021-06-22] MEDS: ZINC SULFATE 220 MG CAPSULE. PO SCH (08:12)
[2021-06-22] MEDS: clonazePAM 0.5 MG TABLET PO SCH ×2 (08:12→20:04)
[2021-06-22] MEDS: metFORMIN 500 MG TABLET PO SCH (08:12)
[2021-06-22] MEDS: LISINOPRIL 5 MG TABLET. PO SCH (08:17)
[2021-06-22] MEDS: QUEtiapine 100 MG TABLET. PO SCH ×2 (14:00→20:03)
[2021-06-22 15:48] VITALS: BP 111/71
[2021-06-22] MEDS: ATORVASTATIN CALCIUM 20 MG TABLET PO SCH (20:03)
--- NOTE | 2021-06-23 03:03 | PN ---
DATE: 06/22/2021 SUBJECTIVE: The patient was seen today, met with the staff. Chart was reviewed. Also covering for Dr. Bey. The patient continues to show improvement. Staff reports no major behavior problems and he is compliant with the treatment. The patient tends to withdraw himself, prefers to be in his room. He denies feeling depressed. OBSERVATION: VITAL SIGNS: Temperature 98.4, blood pressure 111/71, pulse 89, respirations 16, O2 sat 93%. GENERAL: The patient is sleeping fairly well. The patient not having any physical complaints. His gait is steady. He walks with a walker. Denies of any falls. CURRENT MEDICATIONS: Seroquel 100 mg daily and 300 mg at night and 50 mg daily. He is also on Lamictal 200 mg twice a day, Klonopin 0.5 mg twice a day and BuSpar 20 mg 3 times a day and Celexa 40 mg daily. He denies of any side effects to medications. ASSESSMENT: 1. Major depressive disorder, recurrent. 2. Impulse control disorder. 3. Anxiety disorder, unspecified. PLAN: To continue with treatment. LENGTH OF STAY: Three days. The patient still awaiting for placement. ANDRES DR: Precious TID: [id number]
[2021-06-23 05:53] VITALS: BP 119/74
[2021-06-23] MEDS: metFORMIN 500 MG TABLET PO SCH (08:24)
[2021-06-23] MEDS: QUEtiapine 50 MG TABLET. PO SCH (08:26)
[2021-06-23] MEDS: busPIRone 10 MG TABLET. PO SCH ×3 (08:26→20:38)
[2021-06-23] MEDS: clonazePAM 0.5 MG TABLET PO SCH ×2 (08:26→20:43)
[2021-06-23] MEDS: LISINOPRIL 5 MG TABLET. PO SCH (08:26)
[2021-06-23] MEDS: ASPIRIN CHEWABLE 81 MG TABLET. PO SCH (08:26)
[2021-06-23] MEDS: CARBIDOPA/LEVODOPA 25/100MG TABLET PO SCH ×2 (08:26→17:07)
[2021-06-23] MEDS: CITALOPRAM 20 MG TABLET. PO SCH (08:27)
[2021-06-23] MEDS: FOLIC ACID 1 MG TABLET PO SCH (08:27)
[2021-06-23] MEDS: ZINC SULFATE 220 MG CAPSULE. PO SCH (08:30)
[2021-06-23] MEDS: FAMOTIDINE 20 MG TABLET PO SCH ×2 (08:30→20:38)
[2021-06-23] MEDS: lamoTRIgine 100 MG TABLET. PO SCH ×2 (08:30→20:38)
[2021-06-23] MEDS: ASCORBIC ACID 1,000 MG TABLET PO SCH (08:30)
[2021-06-23] MEDS: ACETAMINOPHEN 325 MG TABLET PO PRN ×2 (09:07→17:21)
[2021-06-23] MEDS: QUEtiapine 100 MG TABLET. PO SCH ×2 (14:19→20:38)
[2021-06-23 16:22] VITALS: BP 98/63
[2021-06-23] MEDS: ATORVASTATIN CALCIUM 20 MG TABLET PO SCH (20:39)
--- NOTE | 2021-06-24 00:09 | PN ---
DATE: 06/23/2021 SUBJECTIVE: The patient was seen today, met with the staff. Chart reviewed. Patient continues to show improvement. No longer having any major behavior problems. Also, denies of any physical problems. The patient is able to walk with his walker and shuffling gait secondary to his Parkinson's disease. The patient has maintained steady improvement. The patient is no longer having any auditory hallucinations. The patient currently not exhibiting any symptoms of cognitive disorder. OBSERVATION: VITAL SIGNS: Temperature 97.0, blood pressure 119/74, pulse 73, respirations 16, O2 sat 97%. Slept about 7 hours last night. GENERAL: The patient's appetite normal. LABORATORY DATA: The patient's lab reviewed. CURRENT MEDICATIONS: The patient's current medications include Seroquel 100 mg daily, 50 mg daily and 300 mg at night. He is also on Lamictal 200 mg twice a day, Klonopin 0.5 mg twice a day and BuSpar 20 mg 3 times a day and Celexa 40 mg daily. He is not having any side effects to medications. ASSESSMENT: 1. Major depressive disorder, recurrent. 2. Impulse control disorder. 3. Anxiety disorder, unspecified. PLAN: To continue treatment. LENGTH OF STAY: Three to five days. He is awaiting for placement. RIVERA DR: Precious TID: [id number]
[2021-06-24 06:13] VITALS: BP 109/72
[2021-06-24] MEDS: busPIRone 10 MG TABLET. PO SCH ×3 (08:04→20:25)
[2021-06-24] MEDS: QUEtiapine 50 MG TABLET. PO SCH (08:05)
[2021-06-24] MEDS: FAMOTIDINE 20 MG TABLET PO SCH ×2 (08:05→20:24)
[2021-06-24] MEDS: FOLIC ACID 1 MG TABLET PO SCH (08:05)
[2021-06-24] MEDS: ASPIRIN CHEWABLE 81 MG TABLET. PO SCH (08:05)
[2021-06-24] MEDS: CARBIDOPA/LEVODOPA 25/100MG TABLET PO SCH ×2 (08:05→17:17)
[2021-06-24] MEDS: ASCORBIC ACID 1,000 MG TABLET PO SCH (08:05)
[2021-06-24] MEDS: ZINC SULFATE 220 MG CAPSULE. PO SCH (08:05)
[2021-06-24] MEDS: metFORMIN 500 MG TABLET PO SCH (08:05)
[2021-06-24] MEDS: LISINOPRIL 5 MG TABLET. PO SCH (08:06)
[2021-06-24] MEDS: CITALOPRAM 20 MG TABLET. PO SCH (08:06)
[2021-06-24] MEDS: ACETAMINOPHEN 325 MG TABLET PO PRN ×2 (08:07→13:44)
[2021-06-24] MEDS: lamoTRIgine 100 MG TABLET. PO SCH ×2 (08:07→20:24)
[2021-06-24] MEDS: clonazePAM 0.5 MG TABLET PO SCH ×2 (08:51→20:24)
[2021-06-24] MEDS: QUEtiapine 100 MG TABLET. PO SCH ×2 (13:44→20:23)
[2021-06-24 15:57] VITALS: BP 104/66
[2021-06-24] MEDS: ATORVASTATIN CALCIUM 20 MG TABLET PO SCH (20:23)
--- NOTE | 2021-06-25 02:13 | PN ---
DATE: 06/24/2021 SUBJECTIVE: The patient is seen today, met with the staff. Chart was reviewed. I am covering for Dr. Bey. The patient continues to show improvement. Staff reports no major behavior problems. The patient denies of feeling depressed. The patient also had zoom interview reviewed from the [facility] and is hoping they will make a decision soon, so that he can leave the hospital. OBSERVATION: VITAL SIGNS: Temperature 97.5, blood pressure 109/72, pulse 75, respirations 18, O2 sat 95%. GENERAL: Slept about 7 hours last night. The patient's appetite normal. LABORATORY DATA: The patient's lab reviewed. CURRENT MEDICATIONS: Seroquel 100 mg daily, 50 mg daily and 300 mg at night. The patient is also on Celexa 40 mg daily, BuSpar 20 mg three times a day, Lamictal 200 mg twice a day and Klonopin 0.5 mg twice a day. The patient is not having any side effects to medications. ASSESSMENT: 1. Major depressive disorder, recurrent. 2. Impulse control disorder. 3. Anxiety disorder, unspecified. PLAN: To continue with treatment. LENGTH OF STAY: Three to five days, awaiting for placement. HAFSA DR: Precious TID: [id number]
[2021-06-25 05:37] VITALS: BP 113/71
[2021-06-25] MEDS: clonazePAM 0.5 MG TABLET PO SCH ×2 (08:08→20:14)
[2021-06-25] MEDS: ASCORBIC ACID 1,000 MG TABLET PO SCH (08:08)
[2021-06-25] MEDS: metFORMIN 500 MG TABLET PO SCH (08:08)
[2021-06-25] MEDS: FAMOTIDINE 20 MG TABLET PO SCH ×2 (08:08→20:13)
[2021-06-25] MEDS: LISINOPRIL 5 MG TABLET. PO SCH (08:08)
[2021-06-25] MEDS: CITALOPRAM 20 MG TABLET. PO SCH (08:08)
[2021-06-25] MEDS: FOLIC ACID 1 MG TABLET PO SCH (08:08)
[2021-06-25] MEDS: ASPIRIN CHEWABLE 81 MG TABLET. PO SCH (08:08)
[2021-06-25] MEDS: QUEtiapine 50 MG TABLET. PO SCH (08:08)
[2021-06-25] MEDS: CARBIDOPA/LEVODOPA 25/100MG TABLET PO SCH ×2 (08:09→17:33)
[2021-06-25] MEDS: ZINC SULFATE 220 MG CAPSULE. PO SCH (08:09)
[2021-06-25] MEDS: busPIRone 10 MG TABLET. PO SCH ×3 (08:09→20:13)
[2021-06-25] MEDS: lamoTRIgine 100 MG TABLET. PO SCH ×2 (08:09→20:13)
[2021-06-25] MEDS: ACETAMINOPHEN 325 MG TABLET PO PRN ×2 (08:11→17:34)
[2021-06-25] MEDS: QUEtiapine 100 MG TABLET. PO SCH ×2 (14:16→20:13)
[2021-06-25 15:16] VITALS: BP 135/94
[2021-06-25] MEDS: ATORVASTATIN CALCIUM 20 MG TABLET PO SCH (20:13)
--- NOTE | 2021-06-25 23:13 | PN ---
DATE: 06/25/2021 SUBJECTIVE: The patient is seen today, met with the staff. Chart reviewed. Also, covering for Dr. Bey. The patient's behavior continues to show improvement. The patient is much more than controlled with his feelings and emotions. He has not presented with any major behavior problems. The patient has not shown any evidence of any auditory or visual hallucinations. The patient is able to walk with a walker with no difficulty. OBSERVATION: VITAL SIGNS: Temperature 97.4, blood pressure 113/71, pulse 76, respirations 16, O2 sat 96%. Slept about 7-1/2 hours last night. GENERAL: The patient's appetite normal. LABORATORY DATA: The patient's lab reviewed. CURRENT MEDICATIONS: Seroquel 100 mg daily and 50 mg daily and 300 mg at night. He is also on Celexa 40 mg daily, BuSpar 20 mg 3 times a day, Lamictal 200 mg twice a day and Klonopin 0.5 mg twice a day. The patient denies of any side effects to medications. ASSESSMENT: 1. Major depressive disorder, recurrent. 2. Impulse control disorder, unspecified. 3. Anxiety disorder, unspecified. PLAN: To continue with treatment. LENGTH OF STAY: Three to five days, awaiting for placement. LEENA/LOY DR: Precious TID: [id number]
[2021-06-26 06:35] VITALS: BP 103/65
[2021-06-26] MEDS: QUEtiapine 50 MG TABLET. PO SCH (08:23)
[2021-06-26] MEDS: CITALOPRAM 20 MG TABLET. PO SCH (08:25)
[2021-06-26] MEDS: metFORMIN 500 MG TABLET PO SCH (08:26)
[2021-06-26] MEDS: lamoTRIgine 100 MG TABLET. PO SCH ×2 (08:26→20:29)
[2021-06-26] MEDS: ASCORBIC ACID 1,000 MG TABLET PO SCH (08:26)
[2021-06-26] MEDS: ZINC SULFATE 220 MG CAPSULE. PO SCH (08:26)
[2021-06-26] MEDS: ASPIRIN CHEWABLE 81 MG TABLET. PO SCH (08:26)
[2021-06-26] MEDS: FAMOTIDINE 20 MG TABLET PO SCH ×2 (08:26→20:29)
[2021-06-26] MEDS: CARBIDOPA/LEVODOPA 25/100MG TABLET PO SCH ×2 (08:26→14:59)
[2021-06-26] MEDS: FOLIC ACID 1 MG TABLET PO SCH (08:26)
[2021-06-26] MEDS: busPIRone 10 MG TABLET. PO SCH ×3 (08:26→20:29)
[2021-06-26] MEDS: clonazePAM 0.5 MG TABLET PO SCH ×2 (08:27→20:30)
[2021-06-26] MEDS: LISINOPRIL 5 MG TABLET. PO SCH (08:30)
[2021-06-26] MEDS: ACETAMINOPHEN 325 MG TABLET PO PRN ×2 (09:18→15:16)
[2021-06-26] MEDS: QUEtiapine 100 MG TABLET. PO SCH ×2 (15:00→20:29)
[2021-06-26 15:49] VITALS: BP 117/76
--- NOTE | 2021-06-26 19:54 | PN ---
DATE: 06/26/2021 SUBJECTIVE: The patient was seen today, met with the staff. Chart reviewed and covering for Dr. Bey. Staff reports that he is improving, not having any major behavior problems, appropriate with his behaviors. The patient has not presented with any major mood swings. No auditory hallucinations and not making any suicidal statements. OBSERVATION: VITAL SIGNS: Temperature 98.4, blood pressure 103/65, pulse 69, respirations 16, O2 sat 96%. GENERAL: Slept about 8 hours last night. The patient's appetite normal. LABORATORY DATA: The patient's lab reviewed. CURRENT MEDICATIONS: The patient's current medications include Seroquel 100 mg daily, 50 mg daily and 300 mg at night. The patient also on Celexa 40 mg daily, BuSpar 20 mg 3 times a day, Lamictal 200 mg twice a day and Klonopin 0.5 mg twice a day. The patient is not having any side effects to medications. ASSESSMENT: 1. Major neurocognitive disorder, recurrent. 2. Impulse control disorder, unspecified. 3. Anxiety disorder, unspecified. PLAN: To continue with treatment. LENGTH OF STAY: Three to five days. The patient was assessed by the detention and hoping he will be leaving soon in the next few days. LEONIE DR: Precious TID: [id number]
[2021-06-26] MEDS: ATORVASTATIN CALCIUM 20 MG TABLET PO SCH (20:29)
[2021-06-27] MEDS: ACETAMINOPHEN 325 MG TABLET PO PRN ×2 (05:42→17:14)
[2021-06-27 05:46] VITALS: BP 110/69
[2021-06-27] MEDS: ASCORBIC ACID 1,000 MG TABLET PO SCH (08:32)
[2021-06-27] MEDS: lamoTRIgine 100 MG TABLET. PO SCH ×2 (08:32→20:07)
[2021-06-27] MEDS: ASPIRIN CHEWABLE 81 MG TABLET. PO SCH (08:32)
[2021-06-27] MEDS: CARBIDOPA/LEVODOPA 25/100MG TABLET PO SCH ×2 (08:32→17:14)
[2021-06-27] MEDS: FAMOTIDINE 20 MG TABLET PO SCH ×2 (08:32→20:08)
[2021-06-27] MEDS: clonazePAM 0.5 MG TABLET PO SCH ×2 (08:32→20:09)
[2021-06-27] MEDS: metFORMIN 500 MG TABLET PO SCH (08:32)
[2021-06-27] MEDS: CITALOPRAM 20 MG TABLET. PO SCH (08:32)
[2021-06-27] MEDS: busPIRone 10 MG TABLET. PO SCH ×3 (08:32→20:08)
[2021-06-27] MEDS: QUEtiapine 50 MG TABLET. PO SCH (08:33)
[2021-06-27] MEDS: LISINOPRIL 5 MG TABLET. PO SCH (08:33)
[2021-06-27] MEDS: ZINC SULFATE 220 MG CAPSULE. PO SCH (08:33)
[2021-06-27] MEDS: FOLIC ACID 1 MG TABLET PO SCH (08:33)
[2021-06-27] MEDS: QUEtiapine 100 MG TABLET. PO SCH ×2 (14:37→20:08)
[2021-06-27 15:41] VITALS: BP 107/66
[2021-06-27] MEDS: ATORVASTATIN CALCIUM 20 MG TABLET PO SCH (20:07)
--- NOTE | 2021-06-27 21:40 | PDOC ---
Exam Note: Kal Note: Please also refer to the separate dictated note~for this date of service dictated separately.~Patient seen individually. Discussed the patient with Nursing staff reviewed the chart.~Reviewed interim history and current functioning. Reviewed vital signs,~Labs/ Radiology~and current medications noted below. Continue current treatment with the changes noted in the dictated addendum note Assessment: Vital Signs/I&O: Vital Signs Date Time Temp Pulse Resp B/P (MAP) Pulse Ox O2 Delivery O2 Flow Rate FiO2 06/27/21 15:41 97.8 115 17 107/66 (80) 96 06/25/21 05:37 Room Air I & O 06/26/21 06/26/21 06/27/21 15:00 23:00 07:00 Intake Total 1160 ml 360 ml Balance 1160 ml 360 ml Labs: Laboratory Tests Test 06/27/21 07:41 Glucose (Fingerstick) 114 mg/dL (70-99) H Current Medications: Meds: Laboratory Tests Test 06/27/21 07:41 Glucose (Fingerstick) 114 mg/dL Current Medications Medications (Trade) Dose Ordered Sig/Kaley Route PRN Reason Start Time Stop Time Status Last Admin Dose Admin Ascorbic Acid (Vitamin C) 1,000 mg DAILY PO 06/16/21 09:00 06/27/21 08:32 Aspirin (Aspirin Chewable) 81 mg DAILY PO 06/16/21 09:00 06/27/21 08:32 Atorvastatin Calcium (Lipitor) 20 mg QHS PO 06/15/21 21:00 06/27/21 20:07 Buspirone HCl (Buspar) 20 mg TID PO 06/15/21 21:00 06/27/21 20:08 Carbidopa/Levodopa (Sinemet 25/100) 1 tab BID94 PO 06/16/21 09:00 06/27/21 17:14 Clonazepam (KlonoPIN) 0.5 mg BID PO 06/15/21 21:00 06/27/21 20:09 Famotidine (Pepcid) 20 mg BID PO 06/15/21 21:00 06/27/21 20:08 Folic Acid (Folic Acid) 1 mg DAILY PO 06/16/21 09:00 06/27/21 08:33 Metformin HCl (Glucophage) 1,000 mg DAILYWBKFT PO 06/16/21 08:00 06/27/21 08:32 Quetiapine Fumarate (SEROquel) 50 mg DAILY PO 06/16/21 09:00 06/27/21 08:33 Quetiapine Fumarate (SEROquel) 100 mg DAILY@1400 PO 06/16/21 14:00 06/27/21 14:37 Citalopram Hydrobromide (CeleXA) 40 mg DAILY PO 06/16/21 09:00 06/27/21 08:32 Guaifenesin (Mucinex Er) 1,200 mg BID PO 06/15/21 21:00 06/17/21 15:45 DC 06/17/21 08:01 Lamotrigine (LaMICtal) 200 mg BID PO 06/15/21 21:00 06/27/21 20:07 Lisinopril (Prinivil) 2.5 mg DAILY PO 06/16/21 09:00 06/27/21 08:33 Quetiapine Fumarate (SEROquel) 300 mg HS PO 06/15/21 21:00 06/27/21 20:08 Zinc Sulfate (Orazinc) 220 mg DAILY PO 06/16/21 09:00 06/27/21 08:33 Acetaminophen (Tylenol) 650 mg PRN Q6HRS PRN PO MILD PAIN / TEMP > 100.3'F 06/15/21 20:00 06/27/21 17:14 Al Hydroxide/Mg Hydroxide (Mylanta Plus Xs) 30 ml PRN AFTMEALHC PRN PO DYSPEPSIA 06/15/21 20:00 Magnesium Hydroxide (Milk Of Magnesia) 2,400 mg PRN QHS PRN PO CONSTIPATION 06/15/21 20:00 Multi-Ingredient Ointment (Analgesic [place]) 1 erum PRN QID PRN TP MUSCLE PAIN 06/15/21 20:00 I have reviewed the current psychotropics carefully including drug interactions. Risk benefit ratio favors no change other than as noted in my dictated progress note. Diagnosis: Problems: (1) Major depressive disorder, recurrent episode (2) Impulse control disorder (3) Psychotic disorder (4) Anxiety disorder LUTHER WARNER MD Jun 27, 2021 21:40
[2021-06-28] MEDS: ACETAMINOPHEN 325 MG TABLET PO PRN ×3 (05:51→20:06)
[2021-06-28 06:02] VITALS: BP 116/72
[2021-06-28] MEDS: metFORMIN 500 MG TABLET PO SCH (08:23)
[2021-06-28] MEDS: FOLIC ACID 1 MG TABLET PO SCH (08:23)
[2021-06-28] MEDS: FAMOTIDINE 20 MG TABLET PO SCH ×2 (08:23→20:07)
[2021-06-28] MEDS: lamoTRIgine 100 MG TABLET. PO SCH ×2 (08:23→20:06)
[2021-06-28] MEDS: QUEtiapine 50 MG TABLET. PO SCH (08:23)
[2021-06-28] MEDS: ZINC SULFATE 220 MG CAPSULE. PO SCH (08:23)
[2021-06-28] MEDS: LISINOPRIL 5 MG TABLET. PO SCH (08:24)
[2021-06-28] MEDS: CARBIDOPA/LEVODOPA 25/100MG TABLET PO SCH ×2 (08:24→16:09)
[2021-06-28] MEDS: CITALOPRAM 20 MG TABLET. PO SCH (08:24)
[2021-06-28] MEDS: ASCORBIC ACID 1,000 MG TABLET PO SCH (08:24)
[2021-06-28] MEDS: busPIRone 10 MG TABLET. PO SCH ×3 (08:24→20:06)
[2021-06-28] MEDS: clonazePAM 0.5 MG TABLET PO SCH ×2 (08:24→20:07)
[2021-06-28] MEDS: ASPIRIN CHEWABLE 81 MG TABLET. PO SCH (08:24)
[2021-06-28] MEDS: QUEtiapine 100 MG TABLET. PO SCH ×2 (14:11→20:06)
[2021-06-28 15:45] VITALS: BP 114/74
[2021-06-28] MEDS: ATORVASTATIN CALCIUM 20 MG TABLET PO SCH (20:06)
--- NOTE | 2021-06-28 21:33 | PDOC ---
Exam Note: Kal Note: Please also refer to the separate dictated note~for this date of service dictated separately.~Patient seen individually. Discussed the patient with Nursing staff reviewed the chart.~Reviewed interim history and current functioning. Reviewed vital signs,~Labs/ Radiology~and current medications noted below. Continue current treatment with the changes noted in the dictated addendum note Assessment: Vital Signs/I&O: Vital Signs Date Time Temp Pulse Resp B/P (MAP) Pulse Ox O2 Delivery O2 Flow Rate FiO2 06/28/21 15:45 97.9 98 16 114/74 (87) 96 06/25/21 05:37 Room Air I & O 06/27/21 06/27/21 06/28/21 15:00 23:00 07:00 Intake Total 620 ml 600 ml Balance 620 ml 600 ml Labs: Laboratory Tests Test 06/28/21 07:35 Glucose (Fingerstick) 110 mg/dL (70-99) H Current Medications: Meds: Laboratory Tests Test 06/28/21 07:35 Glucose (Fingerstick) 110 mg/dL Current Medications Medications (Trade) Dose Ordered Sig/Kaley Route PRN Reason Start Time Stop Time Status Last Admin Dose Admin Ascorbic Acid (Vitamin C) 1,000 mg DAILY PO 06/16/21 09:00 06/28/21 08:24 Aspirin (Aspirin Chewable) 81 mg DAILY PO 06/16/21 09:00 06/28/21 08:24 Atorvastatin Calcium (Lipitor) 20 mg QHS PO 06/15/21 21:00 06/28/21 20:06 Buspirone HCl (Buspar) 20 mg TID PO 06/15/21 21:00 06/28/21 20:06 Carbidopa/Levodopa (Sinemet 25/100) 1 tab BID94 PO 06/16/21 09:00 06/28/21 16:09 Clonazepam (KlonoPIN) 0.5 mg BID PO 06/15/21 21:00 06/28/21 20:07 Famotidine (Pepcid) 20 mg BID PO 06/15/21 21:00 06/28/21 20:07 Folic Acid (Folic Acid) 1 mg DAILY PO 06/16/21 09:00 06/28/21 08:23 Metformin HCl (Glucophage) 1,000 mg DAILYWBKFT PO 06/16/21 08:00 06/28/21 08:23 Quetiapine Fumarate (SEROquel) 50 mg DAILY PO 06/16/21 09:00 06/28/21 08:23 Quetiapine Fumarate (SEROquel) 100 mg DAILY@1400 PO 06/16/21 14:00 06/28/21 14:11 Citalopram Hydrobromide (CeleXA) 40 mg DAILY PO 06/16/21 09:00 06/28/21 08:24 Guaifenesin (Mucinex Er) 1,200 mg BID PO 06/15/21 21:00 06/17/21 15:45 DC 06/17/21 08:01 Lamotrigine (LaMICtal) 200 mg BID PO 06/15/21 21:00 06/28/21 20:06 Lisinopril (Prinivil) 2.5 mg DAILY PO 06/16/21 09:00 06/28/21 08:24 Quetiapine Fumarate (SEROquel) 300 mg HS PO 06/15/21 21:00 06/28/21 20:06 Zinc Sulfate (Orazinc) 220 mg DAILY PO 06/16/21 09:00 06/28/21 08:23 Acetaminophen (Tylenol) 650 mg PRN Q6HRS PRN PO MILD PAIN / TEMP > 100.3'F 06/15/21 20:00 06/28/21 20:06 Al Hydroxide/Mg Hydroxide (Mylanta Plus Xs) 30 ml PRN AFTMEALHC PRN PO DYSPEPSIA 06/15/21 20:00 Magnesium Hydroxide (Milk Of Magnesia) 2,400 mg PRN QHS PRN PO CONSTIPATION 06/15/21 20:00 Multi-Ingredient Ointment (Analgesic [place]) 1 erum PRN QID PRN TP MUSCLE PAIN 06/15/21 20:00 I have reviewed the current psychotropics carefully including drug interactions. Risk benefit ratio favors no change other than as noted in my dictated progress note. Diagnosis: Problems: (1) Psychotic disorder (2) Anxiety disorder (3) Major depressive disorder, recurrent episode (4) Impulse control disorder LUTHER WARNER MD Jun 28, 2021 21:33
[2021-06-29 06:09] VITALS: BP 133/85
[2021-06-29 06:34] LABS: BASO % 1 % (0-3); EOS # 0.1 x10^3/uL (0.0-0.7); EOS % 2 % (0-3); HEMATOCRIT 42.8 % (39.0-53.0); HEMOGLOBIN 14.8 g/dL (13.0-17.5); LYMPH # 2.1 x10^3/uL (1.0-4.8); LYMPH % 38 % (24-48); MEAN CORPUSCULAR HEMOGLOBIN 32 pg (25-35); MEAN CORPUSCULAR HGB CONC 35 g/dL (31-37); MEAN CORPUSCULAR VOLUME 93 fL (79-100); MONO # 0.4 x10^3/uL (0.0-1.1); MONO % 8 % (0-9); NEUT # 2.8 x10^3uL (1.8-7.7); NEUT % 52 % (31-73); PLATELET COUNT 189 x10^3/uL (140-400); RED BLOOD COUNT 4.63 x10^6/uL (4.30-5.70); RED CELL DISTRIBUTION WIDTH 13.6 % (11.5-14.5); WHITE BLOOD COUNT 5.5 x10^3/uL (4.0-11.0)
[2021-06-29 06:36] LABS: ALBUMIN 3.9 g/dL (3.4-5.0); ALBUMIN/GLOBULIN RATIO 1.4 (1.0-1.7); CALCIUM 8.5 mg/dL (8.5-10.1); CREATININE 0.8 mg/dL (0.7-1.3); GFR 98.6; POTASSIUM 3.9 mmol/L (3.5-5.1); TOTAL BILIRUBIN 0.6 mg/dL (0.2-1.0); TOTAL PROTEIN 6.7 g/dL (6.4-8.2)
[2021-06-29] MEDS: ACETAMINOPHEN 325 MG TABLET PO PRN ×3 (06:58→20:01)
--- NOTE | 2021-06-29 07:55 | PDOC ---
Exam Note: Kal Note: This note is a late entry for 06/27/2021 covers elements not covered in my initial note. Subjective: The patient was seen individually on 06/27/2021, discussed and reviewed the chart with Tanya BALLARD. Dr. Ortega had covered for me for the past two weeks and I have reviewed information, notes and records by Dr. Ortega. The unit is currently on lockdown for any admissions due to Covid-19 positive status. The patient slept 7-3/4 hours previous night. I met with the patient in his room. Overall he is doing reasonably well, somewhat anxious about discharge plans and we addressed this at some length. There is another meeting on Sunday, possibly for placement options. Review of Systems: Positive for some parkinsonian symptoms but these are better. He has more facial expression and affect. Ambulation impaired. No CV, , eye, ENT system symptoms on review. Mental Status Exam: The patient is reasonably oriented. He is quite verbal and interactive, almost smiling at times. Speech coherent. Abstraction fair. Computation impaired. Language function intact. Attention span short. Mood and affect withdrawn. No suicidal or homicidal ideation. No psychotic symptoms. Laboratory Data: Reviewed. Impression: Major depressive disorder, recurrent, rule out psychotic features. Anxiety disorder unspecified. Plan: I have carefully reviewed the patients current psychotropics as mentioned in my initial note. Reviewed drug interactions and risk-benefit ratio. We will adjust further as clinically indicated. Assessment: Vital Signs/I&O: Vital Signs Date Time Temp Pulse Resp B/P (MAP) Pulse Ox O2 Delivery O2 Flow Rate FiO2 06/29/21 06:09 98.0 79 17 133/85 (101) 96 Room Air I & O 06/28/21 06/28/21 06/29/21 15:00 23:00 07:00 Intake Total 360 ml 480 ml 0 ml Balance 360 ml 480 ml 0 ml Labs: Laboratory Tests Test 06/29/21 06:05 06/29/21 07:32 White Blood Count 5.5 x10^3/uL (4.0-11.0) Red Blood Count 4.63 x10^6/uL (4.30-5.70) Hemoglobin 14.8 g/dL (13.0-17.5) Hematocrit 42.8 % (39.0-53.0) Mean Corpuscular Volume 93 fL (79-100) Mean Corpuscular Hemoglobin 32 pg (25-35) Mean Corpuscular Hemoglobin Concent 35 g/dL (31-37) Red Cell Distribution Width 13.6 % (11.5-14.5) Platelet Count 189 x10^3/uL (140-400) Neutrophils (%) (Auto) 52 % (31-73) Lymphocytes (%) (Auto) 38 % (24-48) Monocytes (%) (Auto) 8 % (0-9) Eosinophils (%) (Auto) 2 % (0-3) Basophils (%) (Auto) 1 % (0-3) Neutrophils # (Auto) 2.8 x10^3uL (1.8-7.7) Lymphocytes # (Auto) 2.1 x10^3/uL (1.0-4.8) Monocytes # (Auto) 0.4 x10^3/uL (0.0-1.1) Eosinophils # (Auto) 0.1 x10^3/uL (0.0-0.7) Basophils # (Auto) 0.0 x10^3/uL (0.0-0.2) Sodium Level 144 mmol/L (136-145) Potassium Level 3.9 mmol/L (3.5-5.1) Chloride Level 106 mmol/L (98-107) Carbon Dioxide Level 30 mmol/L (21-32) Anion Gap 8 (6-14) Blood Urea Nitrogen 17 mg/dL (8-26) Creatinine 0.8 mg/dL (0.7-1.3) Estimated GFR (Cockcroft-Gault) 98.6 BUN/Creatinine Ratio 21 (6-20) H Glucose Level 109 mg/dL (70-99) H Calcium Level 8.5 mg/dL (8.5-10.1) Total Bilirubin 0.6 mg/dL (0.2-1.0) Aspartate Amino Transferase (AST) 15 U/L (15-37) Alanine Aminotransferase (ALT) 31 U/L (16-63) Alkaline Phosphatase 91 U/L (46-116) Total Protein 6.7 g/dL (6.4-8.2) Albumin 3.9 g/dL (3.4-5.0) Albumin/Globulin Ratio 1.4 (1.0-1.7) Glucose (Fingerstick) 110 mg/dL (70-99) H Current Medications: I have reviewed the current psychotropics carefully including drug interactions. Risk benefit ratio favors no change other than as noted in my dictated progress note. Diagnosis: Problems: (1) Major depressive disorder, recurrent episode (2) Impulse control disorder (3) Psychotic disorder (4) Anxiety disorder LUTHER WARNER MD Jun 29, 2021 07:55
[2021-06-29] MEDS: busPIRone 10 MG TABLET. PO SCH ×3 (08:06→19:57)
[2021-06-29] MEDS: FOLIC ACID 1 MG TABLET PO SCH (08:06)
[2021-06-29] MEDS: ASCORBIC ACID 1,000 MG TABLET PO SCH (08:06)
[2021-06-29] MEDS: CARBIDOPA/LEVODOPA 25/100MG TABLET PO SCH ×2 (08:07→15:04)
[2021-06-29] MEDS: ASPIRIN CHEWABLE 81 MG TABLET. PO SCH (08:07)
[2021-06-29] MEDS: QUEtiapine 50 MG TABLET. PO SCH (08:07)
[2021-06-29] MEDS: metFORMIN 500 MG TABLET PO SCH (08:07)
[2021-06-29] MEDS: clonazePAM 0.5 MG TABLET PO SCH ×2 (08:07→20:00)
[2021-06-29] MEDS: CITALOPRAM 20 MG TABLET. PO SCH (08:07)
[2021-06-29] MEDS: ZINC SULFATE 220 MG CAPSULE. PO SCH (08:08)
[2021-06-29] MEDS: LISINOPRIL 5 MG TABLET. PO SCH (08:08)
[2021-06-29] MEDS: lamoTRIgine 100 MG TABLET. PO SCH ×2 (08:08→19:57)
[2021-06-29] MEDS: FAMOTIDINE 20 MG TABLET PO SCH ×2 (08:09→19:58)
--- NOTE | 2021-06-29 08:14 | PDOC ---
Exam Note: Kal Note: This note is a late entry for 06/28/2021 covers elements not covered in my initial note. Subjective: The patient was seen individually on 06/28/2021, discussed and reviewed the chart with Tanya BALLARD. The unit is currently on lockdown for any admissions due to Covid-19 positive status. The patient slept 6 hours previous night. Overall he has been isolating himself in his room which is where I met with him. Review of Systems: He has a slight parkinsonian facial expression. Ambulation impaired. No CV, , eye, ENT system symptoms on review. Mental Status Exam: The patient is reasonably oriented. Speech coherent. Abstraction fair. Computation impaired. Language function intact. Attention span fair. Mood and affect improved. He was talking to his over the telephone shortly prior to our visit. Laboratory Data: Reviewed. Impression: Major depressive disorder, recurrent, rule out psychotic features. Anxiety disorder unspecified. Plan: No change from initial note. Assessment: Vital Signs/I&O: Vital Signs Date Time Temp Pulse Resp B/P (MAP) Pulse Ox O2 Delivery O2 Flow Rate FiO2 06/29/21 08:08 79 133/85 06/29/21 06:09 98.0 17 96 Room Air I & O 06/28/21 06/28/21 06/29/21 15:00 23:00 07:00 Intake Total 360 ml 480 ml 0 ml Balance 360 ml 480 ml 0 ml Labs: Laboratory Tests Test 06/29/21 06:05 06/29/21 07:32 White Blood Count 5.5 x10^3/uL (4.0-11.0) Red Blood Count 4.63 x10^6/uL (4.30-5.70) Hemoglobin 14.8 g/dL (13.0-17.5) Hematocrit 42.8 % (39.0-53.0) Mean Corpuscular Volume 93 fL (79-100) Mean Corpuscular Hemoglobin 32 pg (25-35) Mean Corpuscular Hemoglobin Concent 35 g/dL (31-37) Red Cell Distribution Width 13.6 % (11.5-14.5) Platelet Count 189 x10^3/uL (140-400) Neutrophils (%) (Auto) 52 % (31-73) Lymphocytes (%) (Auto) 38 % (24-48) Monocytes (%) (Auto) 8 % (0-9) Eosinophils (%) (Auto) 2 % (0-3) Basophils (%) (Auto) 1 % (0-3) Neutrophils # (Auto) 2.8 x10^3uL (1.8-7.7) Lymphocytes # (Auto) 2.1 x10^3/uL (1.0-4.8) Monocytes # (Auto) 0.4 x10^3/uL (0.0-1.1) Eosinophils # (Auto) 0.1 x10^3/uL (0.0-0.7) Basophils # (Auto) 0.0 x10^3/uL (0.0-0.2) Sodium Level 144 mmol/L (136-145) Potassium Level 3.9 mmol/L (3.5-5.1) Chloride Level 106 mmol/L (98-107) Carbon Dioxide Level 30 mmol/L (21-32) Anion Gap 8 (6-14) Blood Urea Nitrogen 17 mg/dL (8-26) Creatinine 0.8 mg/dL (0.7-1.3) Estimated GFR (Cockcroft-Gault) 98.6 BUN/Creatinine Ratio 21 (6-20) H Glucose Level 109 mg/dL (70-99) H Calcium Level 8.5 mg/dL (8.5-10.1) Total Bilirubin 0.6 mg/dL (0.2-1.0) Aspartate Amino Transferase (AST) 15 U/L (15-37) Alanine Aminotransferase (ALT) 31 U/L (16-63) Alkaline Phosphatase 91 U/L (46-116) Total Protein 6.7 g/dL (6.4-8.2) Albumin 3.9 g/dL (3.4-5.0) Albumin/Globulin Ratio 1.4 (1.0-1.7) Glucose (Fingerstick) 110 mg/dL (70-99) H Current Medications: I have reviewed the current psychotropics carefully including drug interactions. Risk benefit ratio favors no change other than as noted in my dictated progress note. Diagnosis: Problems: (1) Major depressive disorder, recurrent episode (2) Impulse control disorder (3) Anxiety disorder (4) Psychotic disorder LUTHER WARNER MD Jun 29, 2021 08:14
[2021-06-29] MEDS: QUEtiapine 100 MG TABLET. PO SCH ×2 (15:04→19:57)
[2021-06-29 15:43] VITALS: BP 109/82
[2021-06-29] MEDS: ATORVASTATIN CALCIUM 20 MG TABLET PO SCH (19:58)
--- NOTE | 2021-06-29 21:28 | PDOC ---
Exam Note: Kal Note: Please also refer to the separate dictated note~for this date of service dictated separately.~Patient seen individually. Discussed the patient with Nursing staff reviewed the chart.~Reviewed interim history and current functioning. Reviewed vital signs,~Labs/ Radiology~and current medications noted below. Continue current treatment with the changes noted in the dictated addendum note Assessment: Vital Signs/I&O: Vital Signs Date Time Temp Pulse Resp B/P (MAP) Pulse Ox O2 Delivery O2 Flow Rate FiO2 06/29/21 15:43 98.6 83 18 109/82 (91) 95 06/29/21 06:09 Room Air I & O 06/28/21 06/28/21 06/29/21 15:00 23:00 07:00 Intake Total 360 ml 480 ml 0 ml Balance 360 ml 480 ml 0 ml Labs: Laboratory Tests Test 06/29/21 06:05 06/29/21 07:32 White Blood Count 5.5 x10^3/uL (4.0-11.0) Red Blood Count 4.63 x10^6/uL (4.30-5.70) Hemoglobin 14.8 g/dL (13.0-17.5) Hematocrit 42.8 % (39.0-53.0) Mean Corpuscular Volume 93 fL (79-100) Mean Corpuscular Hemoglobin 32 pg (25-35) Mean Corpuscular Hemoglobin Concent 35 g/dL (31-37) Red Cell Distribution Width 13.6 % (11.5-14.5) Platelet Count 189 x10^3/uL (140-400) Neutrophils (%) (Auto) 52 % (31-73) Lymphocytes (%) (Auto) 38 % (24-48) Monocytes (%) (Auto) 8 % (0-9) Eosinophils (%) (Auto) 2 % (0-3) Basophils (%) (Auto) 1 % (0-3) Neutrophils # (Auto) 2.8 x10^3uL (1.8-7.7) Lymphocytes # (Auto) 2.1 x10^3/uL (1.0-4.8) Monocytes # (Auto) 0.4 x10^3/uL (0.0-1.1) Eosinophils # (Auto) 0.1 x10^3/uL (0.0-0.7) Basophils # (Auto) 0.0 x10^3/uL (0.0-0.2) Sodium Level 144 mmol/L (136-145) Potassium Level 3.9 mmol/L (3.5-5.1) Chloride Level 106 mmol/L (98-107) Carbon Dioxide Level 30 mmol/L (21-32) Anion Gap 8 (6-14) Blood Urea Nitrogen 17 mg/dL (8-26) Creatinine 0.8 mg/dL (0.7-1.3) Estimated GFR (Cockcroft-Gault) 98.6 BUN/Creatinine Ratio 21 (6-20) H Glucose Level 109 mg/dL (70-99) H Calcium Level 8.5 mg/dL (8.5-10.1) Total Bilirubin 0.6 mg/dL (0.2-1.0) Aspartate Amino Transferase (AST) 15 U/L (15-37) Alanine Aminotransferase (ALT) 31 U/L (16-63) Alkaline Phosphatase 91 U/L (46-116) Total Protein 6.7 g/dL (6.4-8.2) Albumin 3.9 g/dL (3.4-5.0) Albumin/Globulin Ratio 1.4 (1.0-1.7) Glucose (Fingerstick) 110 mg/dL (70-99) H Current Medications: Meds: Laboratory Tests Test 06/29/21 06:05 06/29/21 07:32 White Blood Count 5.5 x10^3/uL Red Blood Count 4.63 x10^6/uL Hemoglobin 14.8 g/dL Hematocrit 42.8 % Mean Corpuscular Volume 93 fL Mean Corpuscular Hemoglobin 32 pg Mean Corpuscular Hemoglobin Concent 35 g/dL Red Cell Distribution Width 13.6 % Platelet Count 189 x10^3/uL Neutrophils (%) (Auto) 52 % Lymphocytes (%) (Auto) 38 % Monocytes (%) (Auto) 8 % Eosinophils (%) (Auto) 2 % Basophils (%) (Auto) 1 % Neutrophils # (Auto) 2.8 x10^3uL Lymphocytes # (Auto) 2.1 x10^3/uL Monocytes # (Auto) 0.4 x10^3/uL Eosinophils # (Auto) 0.1 x10^3/uL Basophils # (Auto) 0.0 x10^3/uL Sodium Level 144 mmol/L Potassium Level 3.9 mmol/L Chloride Level 106 mmol/L Carbon Dioxide Level 30 mmol/L Anion Gap 8 Blood Urea Nitrogen 17 mg/dL Creatinine 0.8 mg/dL Estimated GFR (Cockcroft-Gault) 98.6 BUN/Creatinine Ratio 21 Glucose Level 109 mg/dL Calcium Level 8.5 mg/dL Total Bilirubin 0.6 mg/dL Aspartate Amino Transf (AST/SGOT) 15 U/L Alanine Aminotransferase (ALT/SGPT) 31 U/L Alkaline Phosphatase 91 U/L Total Protein 6.7 g/dL Albumin 3.9 g/dL Albumin/Globulin Ratio 1.4 Glucose (Fingerstick) 110 mg/dL Current Medications Medications (Trade) Dose Ordered Sig/Kaley Route PRN Reason Start Time Stop Time Status Last Admin Dose Admin Ascorbic Acid (Vitamin C) 1,000 mg DAILY PO 06/16/21 09:00 06/29/21 08:06 Aspirin (Aspirin Chewable) 81 mg DAILY PO 06/16/21 09:00 06/29/21 08:07 Atorvastatin Calcium (Lipitor) 20 mg QHS PO 06/15/21 21:00 06/29/21 19:58 Buspirone HCl (Buspar) 20 mg TID PO 06/15/21 21:00 06/29/21 19:57 Carbidopa/Levodopa (Sinemet 25/100) 1 tab BID94 PO 06/16/21 09:00 06/29/21 15:04 Clonazepam (KlonoPIN) 0.5 mg BID PO 06/15/21 21:00 06/29/21 20:00 Famotidine (Pepcid) 20 mg BID PO 06/15/21 21:00 06/29/21 19:58 Folic Acid (Folic Acid) 1 mg DAILY PO 06/16/21 09:00 06/29/21 08:06 Metformin HCl (Glucophage) 1,000 mg DAILYWBKFT PO 06/16/21 08:00 06/29/21 08:07 Quetiapine Fumarate (SEROquel) 50 mg DAILY PO 06/16/21 09:00 06/29/21 08:07 Quetiapine Fumarate (SEROquel) 100 mg DAILY@1400 PO 06/16/21 14:00 06/29/21 15:04 Citalopram Hydrobromide (CeleXA) 40 mg DAILY PO 06/16/21 09:00 06/29/21 08:07 Guaifenesin (Mucinex Er) 1,200 mg BID PO 06/15/21 21:00 06/17/21 15:45 DC 06/17/21 08:01 Lamotrigine (LaMICtal) 200 mg BID PO 06/15/21 21:00 06/29/21 19:57 Lisinopril (Prinivil) 2.5 mg DAILY PO 06/16/21 09:00 06/29/21 08:08 Quetiapine Fumarate (SEROquel) 300 mg HS PO 06/15/21 21:00 06/29/21 19:57 Zinc Sulfate (Orazinc) 220 mg DAILY PO 06/16/21 09:00 06/29/21 08:08 Acetaminophen (Tylenol) 650 mg PRN Q6HRS PRN PO MILD PAIN / TEMP > 100.3'F 06/15/21 20:00 06/29/21 20:01 Al Hydroxide/Mg Hydroxide (Mylanta Plus Xs) 30 ml PRN AFTMEALHC PRN PO DYSPEPSIA 06/15/21 20:00 Magnesium Hydroxide (Milk Of Magnesia) 2,400 mg PRN QHS PRN PO CONSTIPATION 06/15/21 20:00 Multi-Ingredient Ointment (Analgesic [place]) 1 erum PRN QID PRN TP MUSCLE PAIN 06/15/21 20:00 I have reviewed the current psychotropics carefully including drug interactions. Risk benefit ratio favors no change other than as noted in my dictated progress note. Diagnosis: Problems: (1) Psychotic disorder (2) Anxiety disorder (3) Major depressive disorder, recurrent episode (4) Impulse control disorder LUTHER WARNER MD Jun 29, 2021 21:28
[2021-06-30 06:06] VITALS: BP 123/83
--- NOTE | 2021-06-30 07:58 | PDOC ---
Exam Note: Kal Note: This note is a late entry for 06/29/2021 covers elements not covered in my initial note. Subjective: The patient was seen on telehealth rounds with Teetee BALLARD on 06/29/2021, discussed and reviewed the chart with Bre BALLARD. The patient slept 8 hours previous night. Overall he has been quite bright and interactive. He states he talks to his every day on the telephone. Review of Systems: He has a slight parkinsonian facial expression. Ambulation impaired. No CV, , eye, ENT system symptoms on review. Mental Status Exam: The patient is reasonably oriented. He was quite verbal, interactive as I met with him individually on telehealth rounds. Speech coherent. Abstraction fair. Computation impaired. Language function intact. Attention span fair. Mood and affect improved. No psychotic symptoms, suicidal or homicidal ideation. Laboratory Data: Reviewed. Impression: Major depressive disorder, recurrent, rule out psychotic features. Anxiety disorder unspecified. Plan: No change from initial note. Assessment: Vital Signs/I&O: Vital Signs Date Time Temp Pulse Resp B/P (MAP) Pulse Ox O2 Delivery O2 Flow Rate FiO2 06/30/21 06:06 97.4 91 18 123/83 (96) 97 06/29/21 06:09 Room Air I & O 06/29/21 06/29/21 06/30/21 15:00 23:00 07:00 Intake Total 560 ml 600 ml Balance 560 ml 600 ml Labs: Laboratory Tests Test 06/30/21 07:34 Glucose (Fingerstick) 111 mg/dL (70-99) H Current Medications: I have reviewed the current psychotropics carefully including drug interactions. Risk benefit ratio favors no change other than as noted in my dictated progress note. Diagnosis: Problems: (1) Psychotic disorder (2) Anxiety disorder (3) Major depressive disorder, recurrent episode (4) Impulse control disorder LUTHER WARNER MD Jun 30, 2021 07:58
[2021-06-30] MEDS: FOLIC ACID 1 MG TABLET PO SCH (08:11)
[2021-06-30] MEDS: ASCORBIC ACID 1,000 MG TABLET PO SCH (08:12)
[2021-06-30] MEDS: clonazePAM 0.5 MG TABLET PO SCH ×2 (08:12→20:08)
[2021-06-30] MEDS: ASPIRIN CHEWABLE 81 MG TABLET. PO SCH (08:12)
[2021-06-30] MEDS: lamoTRIgine 100 MG TABLET. PO SCH ×2 (08:12→20:07)
[2021-06-30] MEDS: busPIRone 10 MG TABLET. PO SCH ×3 (08:12→20:07)
[2021-06-30] MEDS: ZINC SULFATE 220 MG CAPSULE. PO SCH (08:12)
[2021-06-30] MEDS: FAMOTIDINE 20 MG TABLET PO SCH ×2 (08:12→20:09)
[2021-06-30] MEDS: QUEtiapine 50 MG TABLET. PO SCH (08:12)
[2021-06-30] MEDS: CARBIDOPA/LEVODOPA 25/100MG TABLET PO SCH ×2 (08:12→14:32)
[2021-06-30] MEDS: CITALOPRAM 20 MG TABLET. PO SCH (08:13)
[2021-06-30] MEDS: LISINOPRIL 5 MG TABLET. PO SCH (08:13)
[2021-06-30] MEDS: metFORMIN 500 MG TABLET PO SCH (08:13)
[2021-06-30] MEDS: QUEtiapine 100 MG TABLET. PO SCH ×2 (14:32→20:07)
[2021-06-30 16:27] VITALS: BP 118/80
[2021-06-30] MEDS: ATORVASTATIN CALCIUM 20 MG TABLET PO SCH (20:08)
[2021-06-30] MEDS: ACETAMINOPHEN 325 MG TABLET PO PRN (20:09)
--- NOTE | 2021-06-30 22:10 | PDOC ---
Exam Note: Kal Note: Please also refer to the separate dictated note~for this date of service dictated separately.~Patient seen individually. Discussed the patient with Nursing staff reviewed the chart.~Reviewed interim history and current functioning. Reviewed vital signs,~Labs/ Radiology~and current medications noted below. Continue current treatment with the changes noted in the dictated addendum note Assessment: Vital Signs/I&O: Vital Signs Date Time Temp Pulse Resp B/P (MAP) Pulse Ox O2 Delivery O2 Flow Rate FiO2 06/30/21 16:27 97.2 92 18 118/80 (93) 95 Room Air I & O 06/29/21 06/29/21 06/30/21 15:00 23:00 07:00 Intake Total 560 ml 600 ml Balance 560 ml 600 ml Labs: Laboratory Tests Test 06/30/21 07:34 Glucose (Fingerstick) 111 mg/dL (70-99) H Current Medications: Meds: Laboratory Tests Test 06/30/21 07:34 Glucose (Fingerstick) 111 mg/dL Current Medications Medications (Trade) Dose Ordered Sig/Kaley Route PRN Reason Start Time Stop Time Status Last Admin Dose Admin Ascorbic Acid (Vitamin C) 1,000 mg DAILY PO 06/16/21 09:00 06/30/21 08:12 Aspirin (Aspirin Chewable) 81 mg DAILY PO 06/16/21 09:00 06/30/21 08:12 Atorvastatin Calcium (Lipitor) 20 mg QHS PO 06/15/21 21:00 06/30/21 20:08 Buspirone HCl (Buspar) 20 mg TID PO 06/15/21 21:00 06/30/21 20:07 Carbidopa/Levodopa (Sinemet 25/100) 1 tab BID94 PO 06/16/21 09:00 06/30/21 14:32 Clonazepam (KlonoPIN) 0.5 mg BID PO 06/15/21 21:00 06/30/21 20:08 Famotidine (Pepcid) 20 mg BID PO 06/15/21 21:00 06/30/21 20:09 Folic Acid (Folic Acid) 1 mg DAILY PO 06/16/21 09:00 06/30/21 08:11 Metformin HCl (Glucophage) 1,000 mg DAILYWBKFT PO 06/16/21 08:00 06/30/21 08:13 Quetiapine Fumarate (SEROquel) 50 mg DAILY PO 06/16/21 09:00 06/30/21 08:12 Quetiapine Fumarate (SEROquel) 100 mg DAILY@1400 PO 06/16/21 14:00 06/30/21 14:32 Citalopram Hydrobromide (CeleXA) 40 mg DAILY PO 06/16/21 09:00 06/30/21 08:13 Guaifenesin (Mucinex Er) 1,200 mg BID PO 06/15/21 21:00 06/17/21 15:45 DC 06/17/21 08:01 Lamotrigine (LaMICtal) 200 mg BID PO 06/15/21 21:00 06/30/21 20:07 Lisinopril (Prinivil) 2.5 mg DAILY PO 06/16/21 09:00 06/30/21 08:13 Quetiapine Fumarate (SEROquel) 300 mg HS PO 06/15/21 21:00 06/30/21 20:07 Zinc Sulfate (Orazinc) 220 mg DAILY PO 06/16/21 09:00 06/30/21 08:12 Acetaminophen (Tylenol) 650 mg PRN Q6HRS PRN PO MILD PAIN / TEMP > 100.3'F 06/15/21 20:00 06/30/21 20:09 Al Hydroxide/Mg Hydroxide (Mylanta Plus Xs) 30 ml PRN AFTMEALHC PRN PO DYSPEPSIA 06/15/21 20:00 Magnesium Hydroxide (Milk Of Magnesia) 2,400 mg PRN QHS PRN PO CONSTIPATION 06/15/21 20:00 Multi-Ingredient Ointment (Analgesic [place]) 1 erum PRN QID PRN TP MUSCLE PAIN 06/15/21 20:00 I have reviewed the current psychotropics carefully including drug interactions. Risk benefit ratio favors no change other than as noted in my dictated progress note. Diagnosis: Problems: (1) Psychotic disorder (2) Anxiety disorder (3) Major depressive disorder, recurrent episode (4) Impulse control disorder LUTHER WARNER MD Jun 30, 2021 22:10
[2021-07-01 06:02] VITALS: BP 108/67
[2021-07-01] MEDS: metFORMIN 500 MG TABLET PO SCH (08:12)
[2021-07-01] MEDS: CARBIDOPA/LEVODOPA 25/100MG TABLET PO SCH ×2 (08:12→13:52)
[2021-07-01] MEDS: LISINOPRIL 5 MG TABLET. PO SCH (08:13)
[2021-07-01] MEDS: FAMOTIDINE 20 MG TABLET PO SCH ×2 (08:13→19:49)
[2021-07-01] MEDS: clonazePAM 0.5 MG TABLET PO SCH ×2 (08:13→19:50)
[2021-07-01] MEDS: busPIRone 10 MG TABLET. PO SCH ×3 (08:13→19:50)
[2021-07-01] MEDS: CITALOPRAM 20 MG TABLET. PO SCH (08:14)
[2021-07-01] MEDS: ZINC SULFATE 220 MG CAPSULE. PO SCH (08:14)
[2021-07-01] MEDS: FOLIC ACID 1 MG TABLET PO SCH (08:14)
[2021-07-01] MEDS: ASPIRIN CHEWABLE 81 MG TABLET. PO SCH (08:14)
[2021-07-01] MEDS: lamoTRIgine 100 MG TABLET. PO SCH ×2 (08:14→19:49)
[2021-07-01] MEDS: ASCORBIC ACID 1,000 MG TABLET PO SCH (08:15)
[2021-07-01] MEDS: QUEtiapine 50 MG TABLET. PO SCH (08:15)
[2021-07-01] MEDS: QUEtiapine 100 MG TABLET. PO SCH ×2 (13:52→19:50)
[2021-07-01] MEDS: ACETAMINOPHEN 325 MG TABLET PO PRN ×2 (13:52→19:49)
[2021-07-01 15:58] VITALS: BP 114/73
[2021-07-01] MEDS: ATORVASTATIN CALCIUM 20 MG TABLET PO SCH (19:49)
--- NOTE | 2021-07-01 21:51 | PDOC ---
Exam Note: Kal Note: Please also refer to the separate dictated note~for this date of service dictated separately.~Patient seen individually. Discussed the patient with Nursing staff reviewed the chart.~Reviewed interim history and current functioning. Reviewed vital signs,~Labs/ Radiology~and current medications noted below. Continue current treatment with the changes noted in the dictated addendum note Assessment: Vital Signs/I&O: Vital Signs Date Time Temp Pulse Resp B/P (MAP) Pulse Ox O2 Delivery O2 Flow Rate FiO2 07/01/21 15:58 97.4 96 18 114/73 (87) 98 Room Air I & O 06/30/21 06/30/21 07/01/21 14:59 22:59 06:59 Intake Total 500 ml 840 ml Balance 500 ml 840 ml Labs: Laboratory Tests Test 07/01/21 07:52 Glucose (Fingerstick) 104 mg/dL (70-99) H Current Medications: Meds: Laboratory Tests Test 07/01/21 07:52 Glucose (Fingerstick) 104 mg/dL Current Medications Medications (Trade) Dose Ordered Sig/Kaley Route PRN Reason Start Time Stop Time Status Last Admin Dose Admin Ascorbic Acid (Vitamin C) 1,000 mg DAILY PO 06/16/21 09:00 07/01/21 08:15 Aspirin (Aspirin Chewable) 81 mg DAILY PO 06/16/21 09:00 07/01/21 08:14 Atorvastatin Calcium (Lipitor) 20 mg QHS PO 06/15/21 21:00 07/01/21 19:49 Buspirone HCl (Buspar) 20 mg TID PO 06/15/21 21:00 07/01/21 19:50 Carbidopa/Levodopa (Sinemet 25/100) 1 tab BID94 PO 06/16/21 09:00 07/01/21 13:52 Clonazepam (KlonoPIN) 0.5 mg BID PO 06/15/21 21:00 07/01/21 19:50 Famotidine (Pepcid) 20 mg BID PO 06/15/21 21:00 07/01/21 19:49 Folic Acid (Folic Acid) 1 mg DAILY PO 06/16/21 09:00 07/01/21 08:14 Metformin HCl (Glucophage) 1,000 mg DAILYWBKFT PO 06/16/21 08:00 07/01/21 08:12 Quetiapine Fumarate (SEROquel) 50 mg DAILY PO 06/16/21 09:00 07/01/21 08:15 Quetiapine Fumarate (SEROquel) 100 mg DAILY@1400 PO 06/16/21 14:00 07/01/21 13:52 Citalopram Hydrobromide (CeleXA) 40 mg DAILY PO 06/16/21 09:00 07/01/21 08:14 Guaifenesin (Mucinex Er) 1,200 mg BID PO 06/15/21 21:00 06/17/21 15:45 DC 06/17/21 08:01 Lamotrigine (LaMICtal) 200 mg BID PO 06/15/21 21:00 07/01/21 19:49 Lisinopril (Prinivil) 2.5 mg DAILY PO 06/16/21 09:00 07/01/21 08:13 Quetiapine Fumarate (SEROquel) 300 mg HS PO 06/15/21 21:00 07/01/21 19:50 Zinc Sulfate (Orazinc) 220 mg DAILY PO 06/16/21 09:00 07/01/21 08:14 Acetaminophen (Tylenol) 650 mg PRN Q6HRS PRN PO MILD PAIN / TEMP > 100.3'F 06/15/21 20:00 07/01/21 19:49 Al Hydroxide/Mg Hydroxide (Mylanta Plus Xs) 30 ml PRN AFTMEALHC PRN PO DYSPEPSIA 06/15/21 20:00 Magnesium Hydroxide (Milk Of Magnesia) 2,400 mg PRN QHS PRN PO CONSTIPATION 06/15/21 20:00 Multi-Ingredient Ointment (Analgesic [place]) 1 erum PRN QID PRN TP MUSCLE PAIN 06/15/21 20:00 I have reviewed the current psychotropics carefully including drug interactions. Risk benefit ratio favors no change other than as noted in my dictated progress note. Diagnosis: Problems: (1) Anxiety disorder (2) Major depressive disorder, recurrent episode (3) Impulse control disorder (4) Psychotic disorder LUTHER WARNER MD Jul 01, 2021 21:51
[2021-07-02] MEDS: ACETAMINOPHEN 325 MG TABLET PO PRN ×2 (06:12→15:01)
[2021-07-02 06:15] VITALS: BP 112/79
--- NOTE | 2021-07-02 07:57 | PDOC ---
Exam Note: Kal Note: This note is a late entry for 06/30/2021 covers elements not covered in my initial note. Subjective: The patient was reviewed at treatment team meeting in the morning on 06/30/2021 with Leah Zhu, Shandra Díaz, and Kailee Hines (social worker clinical), Sumi, activity therapy, Morelia BALLARD, discussed and reviewed the chart. We reviewed his records, diagnoses, and placement options. The patient slept 7 hours previous night. I also met with him individually in his room in the evening. He has attended 5 groups in the past one week. He is pleasant, social, frequently in his room, listening to music on his kaylie. He is eligible for discharge despite Covid restrictions but we are awaiting placement perhaps at [facility]. Review of Systems: No CV, , pulmonary, eye, ENT system symptoms on review. Mental Status Exam: The patient is awake, alert and oriented. Speech coherent has some latency. Abstraction fair. Computation impaired. Language function intact. Mood and affect improved. No psychotic symptoms, suicidal or homicidal ideation. Laboratory Data: Reviewed. Impression: Major depressive disorder, recurrent, rule out psychotic features. Anxiety disorder unspecified. Plan: No change from initial note. Assessment: Vital Signs/I&O: Vital Signs Date Time Temp Pulse Resp B/P (MAP) Pulse Ox O2 Delivery O2 Flow Rate FiO2 07/02/21 06:15 98.3 73 16 112/79 (90) 96 07/01/21 15:58 Room Air I & O 07/01/21 07/01/21 07/02/21 15:00 23:00 07:00 Intake Total 480 ml 360 ml Balance 480 ml 360 ml Labs: Laboratory Tests Test 07/02/21 07:21 Glucose (Fingerstick) 112 mg/dL (70-99) H Current Medications: I have reviewed the current psychotropics carefully including drug interactions. Risk benefit ratio favors no change other than as noted in my dictated progress note. Diagnosis: Problems: (1) Psychotic disorder (2) Anxiety disorder (3) Major depressive disorder, recurrent episode (4) Impulse control disorder LUTHER WARNER MD Jul 02, 2021 07:56
--- NOTE | 2021-07-02 08:05 | PDOC ---
Exam Note: Kal Note: This note is a late entry for 07/01/2021 covers elements not covered in my initial note. Subjective: The patient was seen individually on 07/01/2021, discussed and reviewed the chart with Morelia BALLARD. The patient slept 7-1/4 hours previous night. I met with the patient in his room. Overall he is doing well. He denies psychotic symptoms, suicidal or homicidal ideation. Review of Systems: No CV, , pulmonary, eye, ENT system symptoms on review. Mental Status Exam: The patient is reasonably oriented. Speech has some latency, coherent. Abstraction fair. Computation impaired. Language function intact. Attention span short. Mood and affect withdrawn at times. Laboratory Data: Reviewed. Impression: Major depressive disorder, recurrent, rule out psychotic features. Anxiety disorder unspecified. Plan: No change from initial note. Assessment: Vital Signs/I&O: Vital Signs Date Time Temp Pulse Resp B/P (MAP) Pulse Ox O2 Delivery O2 Flow Rate FiO2 07/02/21 06:15 98.3 73 16 112/79 (90) 96 07/01/21 15:58 Room Air I & O 07/01/21 07/01/21 07/02/21 15:00 23:00 07:00 Intake Total 480 ml 360 ml Balance 480 ml 360 ml Labs: Laboratory Tests Test 07/02/21 07:21 Glucose (Fingerstick) 112 mg/dL (70-99) H Current Medications: I have reviewed the current psychotropics carefully including drug interactions. Risk benefit ratio favors no change other than as noted in my dictated progress note. Diagnosis: Problems: (1) Psychotic disorder (2) Anxiety disorder (3) Major depressive disorder, recurrent episode (4) Impulse control disorder LUTHER WARNER MD Jul 02, 2021 08:05
[2021-07-02] MEDS: clonazePAM 0.5 MG TABLET PO SCH ×2 (08:08→20:07)
[2021-07-02] MEDS: ASPIRIN CHEWABLE 81 MG TABLET. PO SCH (08:08)
[2021-07-02] MEDS: metFORMIN 500 MG TABLET PO SCH (08:08)
[2021-07-02] MEDS: CARBIDOPA/LEVODOPA 25/100MG TABLET PO SCH ×2 (08:09→14:57)
[2021-07-02] MEDS: CITALOPRAM 20 MG TABLET. PO SCH (08:09)
[2021-07-02] MEDS: ZINC SULFATE 220 MG CAPSULE. PO SCH (08:09)
[2021-07-02] MEDS: lamoTRIgine 100 MG TABLET. PO SCH ×2 (08:09→20:06)
[2021-07-02] MEDS: busPIRone 10 MG TABLET. PO SCH ×3 (08:09→20:05)
[2021-07-02] MEDS: FOLIC ACID 1 MG TABLET PO SCH (08:09)
[2021-07-02] MEDS: QUEtiapine 50 MG TABLET. PO SCH (08:09)
[2021-07-02] MEDS: FAMOTIDINE 20 MG TABLET PO SCH ×2 (08:11→20:05)
[2021-07-02] MEDS: ASCORBIC ACID 1,000 MG TABLET PO SCH (08:11)
[2021-07-02] MEDS: LISINOPRIL 5 MG TABLET. PO SCH (08:11)
[2021-07-02] MEDS: QUEtiapine 100 MG TABLET. PO SCH ×2 (14:57→20:05)
[2021-07-02 15:39] VITALS: BP 119/73
[2021-07-02] MEDS: ATORVASTATIN CALCIUM 20 MG TABLET PO SCH (20:05)
--- NOTE | 2021-07-02 21:40 | PDOC ---
Exam Note: Kal Note: Please also refer to the separate dictated note~for this date of service dictated separately.~Patient seen individually. Discussed the patient with Nursing staff reviewed the chart.~Reviewed interim history and current functioning. Reviewed vital signs,~Labs/ Radiology~and current medications noted below. Continue current treatment with the changes noted in the dictated addendum note Assessment: Vital Signs/I&O: Vital Signs Date Time Temp Pulse Resp B/P (MAP) Pulse Ox O2 Delivery O2 Flow Rate FiO2 07/02/21 15:39 98.1 82 20 119/73 (88) 95 07/01/21 15:58 Room Air I & O 07/01/21 07/01/21 07/02/21 14:59 22:59 06:59 Intake Total 480 ml 360 ml Balance 480 ml 360 ml Labs: Laboratory Tests Test 07/02/21 07:21 Glucose (Fingerstick) 112 mg/dL (70-99) H Current Medications: Meds: Laboratory Tests Test 07/02/21 07:21 Glucose (Fingerstick) 112 mg/dL Current Medications Medications (Trade) Dose Ordered Sig/Kaley Route PRN Reason Start Time Stop Time Status Last Admin Dose Admin Ascorbic Acid (Vitamin C) 1,000 mg DAILY PO 06/16/21 09:00 07/02/21 08:11 Aspirin (Aspirin Chewable) 81 mg DAILY PO 06/16/21 09:00 07/02/21 08:08 Atorvastatin Calcium (Lipitor) 20 mg QHS PO 06/15/21 21:00 07/02/21 20:05 Buspirone HCl (Buspar) 20 mg TID PO 06/15/21 21:00 07/02/21 20:05 Carbidopa/Levodopa (Sinemet 25/100) 1 tab BID94 PO 06/16/21 09:00 07/02/21 14:57 Clonazepam (KlonoPIN) 0.5 mg BID PO 06/15/21 21:00 07/02/21 20:07 Famotidine (Pepcid) 20 mg BID PO 06/15/21 21:00 07/02/21 20:05 Folic Acid (Folic Acid) 1 mg DAILY PO 06/16/21 09:00 07/02/21 08:09 Metformin HCl (Glucophage) 1,000 mg DAILYWBKFT PO 06/16/21 08:00 07/02/21 08:08 Quetiapine Fumarate (SEROquel) 50 mg DAILY PO 06/16/21 09:00 07/02/21 08:09 Quetiapine Fumarate (SEROquel) 100 mg DAILY@1400 PO 06/16/21 14:00 07/02/21 14:57 Citalopram Hydrobromide (CeleXA) 40 mg DAILY PO 06/16/21 09:00 07/02/21 08:09 Guaifenesin (Mucinex Er) 1,200 mg BID PO 06/15/21 21:00 06/17/21 15:45 DC 06/17/21 08:01 Lamotrigine (LaMICtal) 200 mg BID PO 06/15/21 21:00 07/02/21 20:06 Lisinopril (Prinivil) 2.5 mg DAILY PO 06/16/21 09:00 07/02/21 08:11 Quetiapine Fumarate (SEROquel) 300 mg HS PO 06/15/21 21:00 07/02/21 20:05 Zinc Sulfate (Orazinc) 220 mg DAILY PO 06/16/21 09:00 07/02/21 08:09 Acetaminophen (Tylenol) 650 mg PRN Q6HRS PRN PO MILD PAIN / TEMP > 100.3'F 06/15/21 20:00 07/02/21 15:01 Al Hydroxide/Mg Hydroxide (Mylanta Plus Xs) 30 ml PRN AFTMEALHC PRN PO DYSPEPSIA 06/15/21 20:00 Magnesium Hydroxide (Milk Of Magnesia) 2,400 mg PRN QHS PRN PO CONSTIPATION 06/15/21 20:00 Multi-Ingredient Ointment (Analgesic [place]) 1 erum PRN QID PRN TP MUSCLE PAIN 06/15/21 20:00 I have reviewed the current psychotropics carefully including drug interactions. Risk benefit ratio favors no change other than as noted in my dictated progress note. Diagnosis: Problems: (1) Major depressive disorder, recurrent episode (2) Impulse control disorder (3) Anxiety disorder (4) Psychotic disorder LUTHER WARNER MD Jul 02, 2021 21:40
[2021-07-03 05:43] VITALS: BP 109/72
[2021-07-03] MEDS: ASCORBIC ACID 1,000 MG TABLET PO SCH (08:18)
[2021-07-03] MEDS: ASPIRIN CHEWABLE 81 MG TABLET. PO SCH (08:18)
[2021-07-03] MEDS: QUEtiapine 50 MG TABLET. PO SCH (08:18)
[2021-07-03] MEDS: ZINC SULFATE 220 MG CAPSULE. PO SCH (08:18)
[2021-07-03] MEDS: clonazePAM 0.5 MG TABLET PO SCH ×2 (08:18→20:11)
[2021-07-03] MEDS: FAMOTIDINE 20 MG TABLET PO SCH ×2 (08:18→20:10)
[2021-07-03] MEDS: lamoTRIgine 100 MG TABLET. PO SCH ×2 (08:18→20:10)
[2021-07-03] MEDS: CARBIDOPA/LEVODOPA 25/100MG TABLET PO SCH ×2 (08:19→15:54)
[2021-07-03] MEDS: CITALOPRAM 20 MG TABLET. PO SCH (08:19)
[2021-07-03] MEDS: FOLIC ACID 1 MG TABLET PO SCH (08:19)
[2021-07-03] MEDS: LISINOPRIL 5 MG TABLET. PO SCH (08:19)
[2021-07-03] MEDS: metFORMIN 500 MG TABLET PO SCH (08:19)
[2021-07-03] MEDS: busPIRone 10 MG TABLET. PO SCH ×3 (08:19→20:10)
[2021-07-03] MEDS: ACETAMINOPHEN 325 MG TABLET PO PRN ×2 (08:26→17:29)
[2021-07-03] MEDS: QUEtiapine 100 MG TABLET. PO SCH ×2 (14:00→20:10)
[2021-07-03 16:30] VITALS: BP 117/74
[2021-07-03] MEDS: ATORVASTATIN CALCIUM 20 MG TABLET PO SCH (20:10)
--- NOTE | 2021-07-03 21:43 | PDOC ---
Exam Note: Kal Note: Please also refer to the separate dictated note~for this date of service dictated separately.~Patient seen individually. Discussed the patient with Nursing staff reviewed the chart.~Reviewed interim history and current functioning. Reviewed vital signs,~Labs/ Radiology~and current medications noted below. Continue current treatment with the changes noted in the dictated addendum note Assessment: Vital Signs/I&O: Vital Signs Date Time Temp Pulse Resp B/P (MAP) Pulse Ox O2 Delivery O2 Flow Rate FiO2 07/03/21 16:30 97.2 80 17 117/74 (88) 98 Room Air I & O 07/02/21 07/02/21 07/03/21 15:00 23:00 07:00 Intake Total 920 ml 380 ml Balance 920 ml 380 ml Labs: Laboratory Tests Test 07/03/21 07:50 Glucose (Fingerstick) 121 mg/dL (70-99) H Current Medications: Meds: Laboratory Tests Test 07/03/21 07:50 Glucose (Fingerstick) 121 mg/dL Current Medications Medications (Trade) Dose Ordered Sig/Kaley Route PRN Reason Start Time Stop Time Status Last Admin Dose Admin Ascorbic Acid (Vitamin C) 1,000 mg DAILY PO 06/16/21 09:00 07/03/21 08:18 Aspirin (Aspirin Chewable) 81 mg DAILY PO 06/16/21 09:00 07/03/21 08:18 Atorvastatin Calcium (Lipitor) 20 mg QHS PO 06/15/21 21:00 07/03/21 20:10 Buspirone HCl (Buspar) 20 mg TID PO 06/15/21 21:00 07/03/21 20:10 Carbidopa/Levodopa (Sinemet 25/100) 1 tab BID94 PO 06/16/21 09:00 07/03/21 15:54 Clonazepam (KlonoPIN) 0.5 mg BID PO 06/15/21 21:00 07/03/21 20:11 Famotidine (Pepcid) 20 mg BID PO 06/15/21 21:00 07/03/21 20:10 Folic Acid (Folic Acid) 1 mg DAILY PO 06/16/21 09:00 07/03/21 08:19 Metformin HCl (Glucophage) 1,000 mg DAILYWBKFT PO 06/16/21 08:00 07/03/21 08:19 Quetiapine Fumarate (SEROquel) 50 mg DAILY PO 06/16/21 09:00 07/03/21 08:18 Quetiapine Fumarate (SEROquel) 100 mg DAILY@1400 PO 06/16/21 14:00 07/03/21 14:00 Citalopram Hydrobromide (CeleXA) 40 mg DAILY PO 06/16/21 09:00 07/03/21 08:19 Guaifenesin (Mucinex Er) 1,200 mg BID PO 06/15/21 21:00 06/17/21 15:45 DC 06/17/21 08:01 Lamotrigine (LaMICtal) 200 mg BID PO 06/15/21 21:00 07/03/21 20:10 Lisinopril (Prinivil) 2.5 mg DAILY PO 06/16/21 09:00 07/03/21 08:19 Quetiapine Fumarate (SEROquel) 300 mg HS PO 06/15/21 21:00 07/03/21 20:10 Zinc Sulfate (Orazinc) 220 mg DAILY PO 06/16/21 09:00 07/03/21 08:18 Acetaminophen (Tylenol) 650 mg PRN Q6HRS PRN PO MILD PAIN / TEMP > 100.3'F 06/15/21 20:00 07/03/21 17:29 Al Hydroxide/Mg Hydroxide (Mylanta Plus Xs) 30 ml PRN AFTMEALHC PRN PO DYSPEPSIA 06/15/21 20:00 Magnesium Hydroxide (Milk Of Magnesia) 2,400 mg PRN QHS PRN PO CONSTIPATION 06/15/21 20:00 Multi-Ingredient Ointment (Analgesic [place]) 1 erum PRN QID PRN TP MUSCLE PAIN 06/15/21 20:00 Vitamin D (Vitamin D3) 1,000 unit DAILY PO 07/04/21 09:00 I have reviewed the current psychotropics carefully including drug interactions. Risk benefit ratio favors no change other than as noted in my dictated progress note. Diagnosis: Problems: (1) Psychotic disorder (2) Anxiety disorder (3) Major depressive disorder, recurrent episode (4) Impulse control disorder LUTHER WARNER MD Jul 03, 2021 21:43
[2021-07-04 05:38] VITALS: BP 111/71
[2021-07-04] MEDS: ACETAMINOPHEN 325 MG TABLET PO PRN ×2 (06:12→16:44)
--- NOTE | 2021-07-04 07:04 | PDOC ---
Exam Note: Kal Note: This note is a late entry for 07/02/2021 covers elements not covered in my initial note. Subjective: The patient was seen individually on 07/02/2021, discussed and reviewed the chart with Bre BALLARD. The patient slept 7-1/4 hours previous night. Overall he spends much time in his room. He was on his kaylie as I went to his room. He is quite animated, verbal, smiling at times. He talked at length about placement options how he was looking forward to being accepted at the facility and quite appropriate about this and well oriented. Review of Systems: No CV, , pulmonary, eye, ENT system symptoms on review. Mental Status Exam: The patient is reasonably oriented. Speech has some la tency, coherent. Abstraction fair. Computation impaired. Language function intact. Attention span short. Mood and affect withdrawn at times. No psychotic symptoms, suicidal or homicidal ideation. Laboratory Data: Reviewed. Impression: Major depressive disorder, recurrent, rule out psychotic features. Anxiety disorder unspecified. Plan: No change from initial note. Assessment: Vital Signs/I&O: Vital Signs Date Time Temp Pulse Resp B/P (MAP) Pulse Ox O2 Delivery O2 Flow Rate FiO2 07/04/21 05:38 98.1 70 14 111/71 (84) 97 Room Air I & O 07/03/21 07/03/21 07/04/21 15:00 23:00 07:00 Intake Total 720 ml 480 ml Balance 720 ml 480 ml Labs: Laboratory Tests Test 07/03/21 07:50 Glucose (Fingerstick) 121 mg/dL (70-99) H Current Medications: I have reviewed the current psychotropics carefully including drug interactions. Risk benefit ratio favors no change other than as noted in my dictated progress note. Diagnosis: Problems: (1) Psychotic disorder (2) Anxiety disorder (3) Major depressive disorder, recurrent episode (4) Impulse control disorder LUTHER WARNER MD Jul 04, 2021 07:04
--- NOTE | 2021-07-04 07:31 | PDOC ---
Exam Note: Kal Note: This note is a late entry for 07/03/2021 covers elements not covered in my initial note. Subjective: The patient was seen individually on 07/03/2021, discussed and reviewed the chart with Sabiha BLALARD. The patient slept 7 hours previous night. He states his family came to the parking lot and he saw them through the window and was able to wave to them. They stayed for about 20 mins. He was quite animated discussing this. He was again on the kaylie and keeps himself busy. Review of Systems: No CV, , pulmonary, eye, ENT system symptoms on review. Mental Status Exam: The patient is reasonably oriented. Speech coherent. Abstraction fair. Computation impaired. Language function intact. Attention span short. Mood and affect withdrawn at times. No psychotic symptoms or suicidal ideation. Laboratory Data: Reviewed. Impression: Major depressive disorder, recurrent, rule out psychotic features. Anxiety disorder unspecified. Plan: No change from initial note. Assessment: Vital Signs/I&O: Vital Signs Date Time Temp Pulse Resp B/P (MAP) Pulse Ox O2 Delivery O2 Flow Rate FiO2 07/04/21 05:38 98.1 70 14 111/71 (84) 97 Room Air I & O 07/03/21 07/03/21 07/04/21 15:00 23:00 07:00 Intake Total 720 ml 480 ml Balance 720 ml 480 ml Labs: Laboratory Tests Test 07/03/21 07:50 07/04/21 07:25 Glucose (Fingerstick) 121 mg/dL (70-99) H 102 mg/dL (70-99) H Current Medications: I have reviewed the current psychotropics carefully including drug interactions. Risk benefit ratio favors no change other than as noted in my dictated progress note. Diagnosis: Problems: (1) Psychotic disorder (2) Anxiety disorder (3) Major depressive disorder, recurrent episode (4) Impulse control disorder LUTHER WARNER MD Jul 04, 2021 07:31
[2021-07-04] MEDS: metFORMIN 500 MG TABLET PO SCH (08:12)
[2021-07-04] MEDS: FOLIC ACID 1 MG TABLET PO SCH (08:13)
[2021-07-04] MEDS: ASPIRIN CHEWABLE 81 MG TABLET. PO SCH (08:13)
[2021-07-04] MEDS: ZINC SULFATE 220 MG CAPSULE. PO SCH (08:13)
[2021-07-04] MEDS: lamoTRIgine 100 MG TABLET. PO SCH ×2 (08:13→20:21)
[2021-07-04] MEDS: QUEtiapine 50 MG TABLET. PO SCH (08:13)
[2021-07-04] MEDS: CHOLECALCIFEROL (VITAMIN D3) 1,000 UNIT TABLET PO SCH (08:13)
[2021-07-04] MEDS: LISINOPRIL 5 MG TABLET. PO SCH (08:13)
[2021-07-04] MEDS: ASCORBIC ACID 1,000 MG TABLET PO SCH (08:13)
[2021-07-04] MEDS: CARBIDOPA/LEVODOPA 25/100MG TABLET PO SCH ×2 (08:13→16:44)
[2021-07-04] MEDS: clonazePAM 0.5 MG TABLET PO SCH ×2 (08:13→20:21)
[2021-07-04] MEDS: busPIRone 10 MG TABLET. PO SCH ×3 (08:13→20:21)
[2021-07-04] MEDS: FAMOTIDINE 20 MG TABLET PO SCH ×2 (08:14→20:21)
[2021-07-04] MEDS: CITALOPRAM 20 MG TABLET. PO SCH (08:14)
[2021-07-04] MEDS: QUEtiapine 100 MG TABLET. PO SCH ×2 (13:36→20:21)
[2021-07-04 15:51] VITALS: BP 107/67
[2021-07-04] MEDS: ATORVASTATIN CALCIUM 20 MG TABLET PO SCH (20:21)
--- NOTE | 2021-07-04 21:17 | PDOC ---
Exam Note: Kal Note: Please also refer to the separate dictated note~for this date of service dictated separately.~Patient seen individually. Discussed the patient with Nursing staff reviewed the chart.~Reviewed interim history and current functioning. Reviewed vital signs,~Labs/ Radiology~and current medications noted below. Continue current treatment with the changes noted in the dictated addendum note Assessment: Vital Signs/I&O: Vital Signs Date Time Temp Pulse Resp B/P (MAP) Pulse Ox O2 Delivery O2 Flow Rate FiO2 07/04/21 15:51 98.2 81 16 107/67 (80) 96 07/04/21 05:38 Room Air I & O 07/03/21 07/03/21 07/04/21 15:00 23:00 07:00 Intake Total 720 ml 480 ml Balance 720 ml 480 ml Labs: Laboratory Tests Test 07/04/21 07:25 Glucose (Fingerstick) 102 mg/dL (70-99) H Current Medications: Meds: Laboratory Tests Test 07/04/21 07:25 Glucose (Fingerstick) 102 mg/dL Current Medications Medications (Trade) Dose Ordered Sig/Kaley Route PRN Reason Start Time Stop Time Status Last Admin Dose Admin Ascorbic Acid (Vitamin C) 1,000 mg DAILY PO 06/16/21 09:00 07/04/21 08:13 Aspirin (Aspirin Chewable) 81 mg DAILY PO 06/16/21 09:00 07/04/21 08:13 Atorvastatin Calcium (Lipitor) 20 mg QHS PO 06/15/21 21:00 07/04/21 20:21 Buspirone HCl (Buspar) 20 mg TID PO 06/15/21 21:00 07/04/21 20:21 Carbidopa/Levodopa (Sinemet 25/100) 1 tab BID94 PO 06/16/21 09:00 07/04/21 16:44 Clonazepam (KlonoPIN) 0.5 mg BID PO 06/15/21 21:00 07/04/21 20:21 Famotidine (Pepcid) 20 mg BID PO 06/15/21 21:00 07/04/21 20:21 Folic Acid (Folic Acid) 1 mg DAILY PO 06/16/21 09:00 07/04/21 08:13 Metformin HCl (Glucophage) 1,000 mg DAILYWBKFT PO 06/16/21 08:00 07/04/21 08:12 Quetiapine Fumarate (SEROquel) 50 mg DAILY PO 06/16/21 09:00 07/04/21 08:13 Quetiapine Fumarate (SEROquel) 100 mg DAILY@1400 PO 06/16/21 14:00 07/04/21 13:36 Citalopram Hydrobromide (CeleXA) 40 mg DAILY PO 06/16/21 09:00 07/04/21 08:14 Guaifenesin (Mucinex Er) 1,200 mg BID PO 06/15/21 21:00 06/17/21 15:45 DC 06/17/21 08:01 Lamotrigine (LaMICtal) 200 mg BID PO 06/15/21 21:00 07/04/21 20:21 Lisinopril (Prinivil) 2.5 mg DAILY PO 06/16/21 09:00 07/04/21 08:13 Quetiapine Fumarate (SEROquel) 300 mg HS PO 06/15/21 21:00 07/04/21 20:21 Zinc Sulfate (Orazinc) 220 mg DAILY PO 06/16/21 09:00 07/04/21 08:13 Acetaminophen (Tylenol) 650 mg PRN Q6HRS PRN PO MILD PAIN / TEMP > 100.3'F 06/15/21 20:00 07/04/21 16:44 Al Hydroxide/Mg Hydroxide (Mylanta Plus Xs) 30 ml PRN AFTMEALHC PRN PO DYSPEPSIA 06/15/21 20:00 Magnesium Hydroxide (Milk Of Magnesia) 2,400 mg PRN QHS PRN PO CONSTIPATION 06/15/21 20:00 Multi-Ingredient Ointment (Analgesic [place]) 1 erum PRN QID PRN TP MUSCLE PAIN 06/15/21 20:00 Vitamin D (Vitamin D3) 1,000 unit DAILY PO 07/04/21 09:00 07/04/21 08:13 Current Medications Medications (Trade) Dose Ordered Sig/Kaley Route PRN Reason Start Time Stop Time Status Last Admin Dose Admin Vitamin D (Vitamin D3) 1,000 unit DAILY PO 07/04/21 09:00 07/04/21 08:13 I have reviewed the current psychotropics carefully including drug interactions. Risk benefit ratio favors no change other than as noted in my dictated progress note. Diagnosis: Problems: (1) Psychotic disorder (2) Anxiety disorder (3) Major depressive disorder, recurrent episode (4) Impulse control disorder LUTHER WARNER MD Jul 04, 2021 21:17
[2021-07-05 06:07] VITALS: BP 115/77
[2021-07-05] MEDS: ACETAMINOPHEN 325 MG TABLET PO PRN ×2 (06:37→17:10)
[2021-07-05] MEDS: ZINC SULFATE 220 MG CAPSULE. PO SCH (08:06)
[2021-07-05] MEDS: CARBIDOPA/LEVODOPA 25/100MG TABLET PO SCH ×2 (08:06→14:49)
[2021-07-05] MEDS: FAMOTIDINE 20 MG TABLET PO SCH ×2 (08:06→20:25)
[2021-07-05] MEDS: ASCORBIC ACID 1,000 MG TABLET PO SCH (08:07)
[2021-07-05] MEDS: CITALOPRAM 20 MG TABLET. PO SCH (08:07)
[2021-07-05] MEDS: lamoTRIgine 100 MG TABLET. PO SCH ×2 (08:07→20:24)
[2021-07-05] MEDS: FOLIC ACID 1 MG TABLET PO SCH (08:07)
[2021-07-05] MEDS: QUEtiapine 50 MG TABLET. PO SCH (08:07)
[2021-07-05] MEDS: ASPIRIN CHEWABLE 81 MG TABLET. PO SCH (08:07)
[2021-07-05] MEDS: clonazePAM 0.5 MG TABLET PO SCH ×2 (08:07→20:24)
[2021-07-05] MEDS: metFORMIN 500 MG TABLET PO SCH (08:07)
[2021-07-05] MEDS: CHOLECALCIFEROL (VITAMIN D3) 1,000 UNIT TABLET PO SCH (08:07)
[2021-07-05] MEDS: busPIRone 10 MG TABLET. PO SCH ×3 (08:08→20:24)
[2021-07-05] MEDS: LISINOPRIL 5 MG TABLET. PO SCH (08:08)
[2021-07-05] MEDS: QUEtiapine 100 MG TABLET. PO SCH ×2 (14:50→20:25)
[2021-07-05 16:07] VITALS: BP 122/76
[2021-07-05] MEDS: ATORVASTATIN CALCIUM 20 MG TABLET PO SCH (20:24)
--- NOTE | 2021-07-05 21:23 | PDOC ---
Exam Note: Kal Note: Please also refer to the separate dictated note~for this date of service dictated separately.~Patient seen individually. Discussed the patient with Nursing staff reviewed the chart.~Reviewed interim history and current functioning. Reviewed vital signs,~Labs/ Radiology~and current medications noted below. Continue current treatment with the changes noted in the dictated addendum note Assessment: Vital Signs/I&O: Vital Signs Date Time Temp Pulse Resp B/P (MAP) Pulse Ox O2 Delivery O2 Flow Rate FiO2 07/05/21 16:07 97.5 89 18 122/76 (91) 96 07/04/21 05:38 Room Air I & O 07/04/21 07/04/21 07/05/21 15:00 23:00 07:00 Intake Total 960 ml 360 ml Balance 960 ml 360 ml Labs: Laboratory Tests Test 07/05/21 07:30 Glucose (Fingerstick) 110 mg/dL (70-99) H Current Medications: Meds: Laboratory Tests Test 07/05/21 07:30 Glucose (Fingerstick) 110 mg/dL Current Medications Medications (Trade) Dose Ordered Sig/Kaley Route PRN Reason Start Time Stop Time Status Last Admin Dose Admin Ascorbic Acid (Vitamin C) 1,000 mg DAILY PO 06/16/21 09:00 07/05/21 08:07 Aspirin (Aspirin Chewable) 81 mg DAILY PO 06/16/21 09:00 07/05/21 08:07 Atorvastatin Calcium (Lipitor) 20 mg QHS PO 06/15/21 21:00 07/05/21 20:24 Buspirone HCl (Buspar) 20 mg TID PO 06/15/21 21:00 07/05/21 20:24 Carbidopa/Levodopa (Sinemet 25/100) 1 tab BID94 PO 06/16/21 09:00 07/05/21 14:49 Clonazepam (KlonoPIN) 0.5 mg BID PO 06/15/21 21:00 07/05/21 20:24 Famotidine (Pepcid) 20 mg BID PO 06/15/21 21:00 07/05/21 20:25 Folic Acid (Folic Acid) 1 mg DAILY PO 06/16/21 09:00 07/05/21 08:07 Metformin HCl (Glucophage) 1,000 mg DAILYWBKFT PO 06/16/21 08:00 07/05/21 08:07 Quetiapine Fumarate (SEROquel) 50 mg DAILY PO 06/16/21 09:00 07/05/21 08:07 Quetiapine Fumarate (SEROquel) 100 mg DAILY@1400 PO 06/16/21 14:00 07/05/21 14:50 Citalopram Hydrobromide (CeleXA) 40 mg DAILY PO 06/16/21 09:00 07/05/21 08:07 Guaifenesin (Mucinex Er) 1,200 mg BID PO 06/15/21 21:00 06/17/21 15:45 DC 06/17/21 08:01 Lamotrigine (LaMICtal) 200 mg BID PO 06/15/21 21:00 07/05/21 20:24 Lisinopril (Prinivil) 2.5 mg DAILY PO 06/16/21 09:00 07/05/21 08:08 Quetiapine Fumarate (SEROquel) 300 mg HS PO 06/15/21 21:00 07/05/21 20:25 Zinc Sulfate (Orazinc) 220 mg DAILY PO 06/16/21 09:00 07/05/21 08:06 Acetaminophen (Tylenol) 650 mg PRN Q6HRS PRN PO MILD PAIN / TEMP > 100.3'F 06/15/21 20:00 07/05/21 17:10 Al Hydroxide/Mg Hydroxide (Mylanta Plus Xs) 30 ml PRN AFTMEALHC PRN PO DYSPEPSIA 06/15/21 20:00 Magnesium Hydroxide (Milk Of Magnesia) 2,400 mg PRN QHS PRN PO CONSTIPATION 06/15/21 20:00 Multi-Ingredient Ointment (Analgesic [place]) 1 erum PRN QID PRN TP MUSCLE PAIN 06/15/21 20:00 Vitamin D (Vitamin D3) 1,000 unit DAILY PO 07/04/21 09:00 07/05/21 08:07 I have reviewed the current psychotropics carefully including drug interactions. Risk benefit ratio favors no change other than as noted in my dictated progress note. Diagnosis: Problems: (1) Psychotic disorder (2) Anxiety disorder (3) Major depressive disorder, recurrent episode (4) Impulse control disorder LUTHER WARNER MD Jul 05, 2021 21:23
[2021-07-06 06:12] VITALS: BP 108/73
[2021-07-06] MEDS: ACETAMINOPHEN 325 MG TABLET PO PRN ×2 (06:18→17:00)
[2021-07-06 06:22] LABS: BASO % 1 % (0-3); EOS # 0.1 x10^3/uL (0.0-0.7); EOS % 3 % (0-3); HEMATOCRIT 44.1 % (39.0-53.0); LYMPH # 1.9 x10^3/uL (1.0-4.8); LYMPH % 32 % (24-48); MEAN CORPUSCULAR HEMOGLOBIN 32 pg (25-35); MEAN CORPUSCULAR HGB CONC 34 g/dL (31-37); MEAN CORPUSCULAR VOLUME 93 fL (79-100); MONO # 0.5 x10^3/uL (0.0-1.1); MONO % 8 % (0-9); NEUT # 3.4 x10^3uL (1.8-7.7); NEUT % 57 % (31-73); PLATELET COUNT 155 x10^3/uL (140-400); RED BLOOD COUNT 4.74 x10^6/uL (4.30-5.70); RED CELL DISTRIBUTION WIDTH 13.8 % (11.5-14.5)
[2021-07-06 06:51] LABS: ALBUMIN 3.8 g/dL (3.4-5.0); ALBUMIN/GLOBULIN RATIO 1.4 (1.0-1.7); CALCIUM 8.5 mg/dL (8.5-10.1); CREATININE 0.8 mg/dL (0.7-1.3); GFR 98.6; POTASSIUM 3.9 mmol/L (3.5-5.1); TOTAL BILIRUBIN 0.5 mg/dL (0.2-1.0); TOTAL PROTEIN 6.6 g/dL (6.4-8.2)
--- NOTE | 2021-07-06 07:29 | PDOC ---
Exam Note: Kal Note: This note is a late entry for 07/04/2021 covers elements not covered in my initial note. Subjective: The patient was seen individually on 07/04/2021, discussed and reviewed the chart with Tanya BALLARD. The patient slept 6-1/4 hours previous night. Overall he is doing reasonably well. Review of Systems: No CV, , pulmonary, eye, ENT system symptoms on review. Mental Status Exam: The patient is reasonably oriented. I once again speci fically and in a very goal-directed manner questioned him on having any hallucinations or suicidal ideation on 07/04 and he denied this like he has done over the past few days. He had many questions about his placement options and we addressed this. Speech coherent. Abstraction fair. Computation impaired. Language function intact. Attention span short. No psychotic symptoms or suicidal ideation. Laboratory Data: Reviewed. Impression: Major depressive disorder, recurrent, rule out psychotic features. Anxiety disorder unspecified. Plan: No change from initial note. Assessment: Vital Signs/I&O: Vital Signs Date Time Temp Pulse Resp B/P (MAP) Pulse Ox O2 Delivery O2 Flow Rate FiO2 07/06/21 06:12 98.1 72 14 108/73 (85) 97 07/04/21 05:38 Room Air I & O 07/05/21 07/05/21 07/06/21 15:00 23:00 07:00 Intake Total 1080 ml 600 ml Balance 1080 ml 600 ml Labs: Laboratory Tests Test 07/05/21 07:30 07/06/21 06:07 Glucose (Fingerstick) 110 mg/dL (70-99) H White Blood Count 6.0 x10^3/uL (4.0-11.0) Red Blood Count 4.74 x10^6/uL (4.30-5.70) Hemoglobin 15.0 g/dL (13.0-17.5) Hematocrit 44.1 % (39.0-53.0) Mean Corpuscular Volume 93 fL (79-100) Mean Corpuscular Hemoglobin 32 pg (25-35) Mean Corpuscular Hemoglobin Concent 34 g/dL (31-37) Red Cell Distribution Width 13.8 % (11.5-14.5) Platelet Count 155 x10^3/uL (140-400) Neutrophils (%) (Auto) 57 % (31-73) Lymphocytes (%) (Auto) 32 % (24-48) Monocytes (%) (Auto) 8 % (0-9) Eosinophils (%) (Auto) 3 % (0-3) Basophils (%) (Auto) 1 % (0-3) Neutrophils # (Auto) 3.4 x10^3uL (1.8-7.7) Lymphocytes # (Auto) 1.9 x10^3/uL (1.0-4.8) Monocytes # (Auto) 0.5 x10^3/uL (0.0-1.1) Eosinophils # (Auto) 0.1 x10^3/uL (0.0-0.7) Basophils # (Auto) 0.0 x10^3/uL (0.0-0.2) Sodium Level 144 mmol/L (136-145) Potassium Level 3.9 mmol/L (3.5-5.1) Chloride Level 107 mmol/L (98-107) Carbon Dioxide Level 29 mmol/L (21-32) Anion Gap 8 (6-14) Blood Urea Nitrogen 14 mg/dL (8-26) Creatinine 0.8 mg/dL (0.7-1.3) Estimated GFR (Cockcroft-Gault) 98.6 BUN/Creatinine Ratio 18 (6-20) Glucose Level 109 mg/dL (70-99) H Calcium Level 8.5 mg/dL (8.5-10.1) Total Bilirubin 0.5 mg/dL (0.2-1.0) Aspartate Amino Transferase (AST) 14 U/L (15-37) L Alanine Aminotransferase (ALT) 36 U/L (16-63) Alkaline Phosphatase 84 U/L (46-116) Total Protein 6.6 g/dL (6.4-8.2) Albumin 3.8 g/dL (3.4-5.0) Albumin/Globulin Ratio 1.4 (1.0-1.7) Current Medications: I have reviewed the current psychotropics carefully including drug interactions. Risk benefit ratio favors no change other than as noted in my dictated progress note. Diagnosis: Problems: (1) Psychotic disorder (2) Anxiety disorder (3) Major depressive disorder, recurrent episode (4) Impulse control disorder LUTHER WARNER MD Jul 06, 2021 07:29
--- NOTE | 2021-07-06 07:45 | PDOC ---
Exam Note: Kal Note: This note is a late entry for 07/05/2021 covers elements not covered in my initial note. Subjective: The patient was seen individually on 07/05/2021, discussed and reviewed the chart with Morelia BALLARD. The patient slept 6-1/4 hours previous night. The patient is doing reasonably well. Review of Systems: No CV, , pulmonary, eye, ENT system symptoms on review. Mental Status Exam: The patient is reasonably oriented. As I met with the patient in his room, he stated he was told by the service staff that he was not accepted at [facility]. He was disappointed but hopeful that he would find a placement at another facility. We addressed this. Speech coherent. Abstraction fair. Computation impaired. Language function intact. Attention span short. No psychotic symptoms or suicidal ideation. Laboratory Data: Reviewed. Impression: Major depressive disorder, recurrent, rule out psychotic features. Anxiety disorder unspecified. Plan: No change from initial note. Assessment: Vital Signs/I&O: Vital Signs Date Time Temp Pulse Resp B/P (MAP) Pulse Ox O2 Delivery O2 Flow Rate FiO2 07/06/21 06:12 98.1 72 14 108/73 (85) 97 07/04/21 05:38 Room Air I & O 07/05/21 07/05/21 07/06/21 15:00 23:00 07:00 Intake Total 1080 ml 600 ml Balance 1080 ml 600 ml Labs: Laboratory Tests Test 07/06/21 06:07 White Blood Count 6.0 x10^3/uL (4.0-11.0) Red Blood Count 4.74 x10^6/uL (4.30-5.70) Hemoglobin 15.0 g/dL (13.0-17.5) Hematocrit 44.1 % (39.0-53.0) Mean Corpuscular Volume 93 fL (79-100) Mean Corpuscular Hemoglobin 32 pg (25-35) Mean Corpuscular Hemoglobin Concent 34 g/dL (31-37) Red Cell Distribution Width 13.8 % (11.5-14.5) Platelet Count 155 x10^3/uL (140-400) Neutrophils (%) (Auto) 57 % (31-73) Lymphocytes (%) (Auto) 32 % (24-48) Monocytes (%) (Auto) 8 % (0-9) Eosinophils (%) (Auto) 3 % (0-3) Basophils (%) (Auto) 1 % (0-3) Neutrophils # (Auto) 3.4 x10^3uL (1.8-7.7) Lymphocytes # (Auto) 1.9 x10^3/uL (1.0-4.8) Monocytes # (Auto) 0.5 x10^3/uL (0.0-1.1) Eosinophils # (Auto) 0.1 x10^3/uL (0.0-0.7) Basophils # (Auto) 0.0 x10^3/uL (0.0-0.2) Sodium Level 144 mmol/L (136-145) Potassium Level 3.9 mmol/L (3.5-5.1) Chloride Level 107 mmol/L (98-107) Carbon Dioxide Level 29 mmol/L (21-32) Anion Gap 8 (6-14) Blood Urea Nitrogen 14 mg/dL (8-26) Creatinine 0.8 mg/dL (0.7-1.3) Estimated GFR (Cockcroft-Gault) 98.6 BUN/Creatinine Ratio 18 (6-20) Glucose Level 109 mg/dL (70-99) H Calcium Level 8.5 mg/dL (8.5-10.1) Total Bilirubin 0.5 mg/dL (0.2-1.0) Aspartate Amino Transferase (AST) 14 U/L (15-37) L Alanine Aminotransferase (ALT) 36 U/L (16-63) Alkaline Phosphatase 84 U/L (46-116) Total Protein 6.6 g/dL (6.4-8.2) Albumin 3.8 g/dL (3.4-5.0) Albumin/Globulin Ratio 1.4 (1.0-1.7) Current Medications: I have reviewed the current psychotropics carefully including drug interactions. Risk benefit ratio favors no change other than as noted in my dictated progress note. Diagnosis: Problems: (1) Psychotic disorder (2) Anxiety disorder (3) Major depressive disorder, recurrent episode (4) Impulse control disorder LUTHER WARNER MD Jul 06, 2021 07:45
[2021-07-06] MEDS: metFORMIN 500 MG TABLET PO SCH (08:24)
[2021-07-06] MEDS: CITALOPRAM 20 MG TABLET. PO SCH (08:25)
[2021-07-06] MEDS: LISINOPRIL 5 MG TABLET. PO SCH (08:25)
[2021-07-06] MEDS: lamoTRIgine 100 MG TABLET. PO SCH ×2 (08:25→20:27)
[2021-07-06] MEDS: CARBIDOPA/LEVODOPA 25/100MG TABLET PO SCH ×2 (08:25→14:14)
[2021-07-06] MEDS: ASCORBIC ACID 1,000 MG TABLET PO SCH (08:25)
[2021-07-06] MEDS: busPIRone 10 MG TABLET. PO SCH ×3 (08:25→20:27)
[2021-07-06] MEDS: QUEtiapine 50 MG TABLET. PO SCH (08:25)
[2021-07-06] MEDS: ZINC SULFATE 220 MG CAPSULE. PO SCH (08:25)
[2021-07-06] MEDS: FAMOTIDINE 20 MG TABLET PO SCH ×2 (08:25→20:27)
[2021-07-06] MEDS: CHOLECALCIFEROL (VITAMIN D3) 1,000 UNIT TABLET PO SCH (08:25)
[2021-07-06] MEDS: clonazePAM 0.5 MG TABLET PO SCH ×2 (08:25→20:27)
[2021-07-06] MEDS: FOLIC ACID 1 MG TABLET PO SCH (08:26)
[2021-07-06] MEDS: ASPIRIN CHEWABLE 81 MG TABLET. PO SCH (08:26)
[2021-07-06] MEDS: QUEtiapine 100 MG TABLET. PO SCH ×2 (14:14→20:28)
[2021-07-06 15:38] VITALS: BP 122/80
[2021-07-06] MEDS: ATORVASTATIN CALCIUM 20 MG TABLET PO SCH (20:27)
--- NOTE | 2021-07-06 21:20 | PDOC ---
Exam Note: Kal Note: Please also refer to the separate dictated note~for this date of service dictated separately.~Patient seen individually. Discussed the patient with Nursing staff reviewed the chart.~Reviewed interim history and current functioning. Reviewed vital signs,~Labs/ Radiology~and current medications noted below. Continue current treatment with the changes noted in the dictated addendum note Assessment: Vital Signs/I&O: Vital Signs Date Time Temp Pulse Resp B/P (MAP) Pulse Ox O2 Delivery O2 Flow Rate FiO2 07/06/21 15:38 98.3 91 18 122/80 (94) 98 Room Air I & O 07/05/21 07/05/21 07/06/21 15:00 23:00 07:00 Intake Total 1080 ml 600 ml Balance 1080 ml 600 ml Labs: Laboratory Tests Test 07/06/21 06:07 07/06/21 07:44 White Blood Count 6.0 x10^3/uL (4.0-11.0) Red Blood Count 4.74 x10^6/uL (4.30-5.70) Hemoglobin 15.0 g/dL (13.0-17.5) Hematocrit 44.1 % (39.0-53.0) Mean Corpuscular Volume 93 fL (79-100) Mean Corpuscular Hemoglobin 32 pg (25-35) Mean Corpuscular Hemoglobin Concent 34 g/dL (31-37) Red Cell Distribution Width 13.8 % (11.5-14.5) Platelet Count 155 x10^3/uL (140-400) Neutrophils (%) (Auto) 57 % (31-73) Lymphocytes (%) (Auto) 32 % (24-48) Monocytes (%) (Auto) 8 % (0-9) Eosinophils (%) (Auto) 3 % (0-3) Basophils (%) (Auto) 1 % (0-3) Neutrophils # (Auto) 3.4 x10^3uL (1.8-7.7) Lymphocytes # (Auto) 1.9 x10^3/uL (1.0-4.8) Monocytes # (Auto) 0.5 x10^3/uL (0.0-1.1) Eosinophils # (Auto) 0.1 x10^3/uL (0.0-0.7) Basophils # (Auto) 0.0 x10^3/uL (0.0-0.2) Sodium Level 144 mmol/L (136-145) Potassium Level 3.9 mmol/L (3.5-5.1) Chloride Level 107 mmol/L (98-107) Carbon Dioxide Level 29 mmol/L (21-32) Anion Gap 8 (6-14) Blood Urea Nitrogen 14 mg/dL (8-26) Creatinine 0.8 mg/dL (0.7-1.3) Estimated GFR (Cockcroft-Gault) 98.6 BUN/Creatinine Ratio 18 (6-20) Glucose Level 109 mg/dL (70-99) H Calcium Level 8.5 mg/dL (8.5-10.1) Total Bilirubin 0.5 mg/dL (0.2-1.0) Aspartate Amino Transferase (AST) 14 U/L (15-37) L Alanine Aminotransferase (ALT) 36 U/L (16-63) Alkaline Phosphatase 84 U/L (46-116) Total Protein 6.6 g/dL (6.4-8.2) Albumin 3.8 g/dL (3.4-5.0) Albumin/Globulin Ratio 1.4 (1.0-1.7) Glucose (Fingerstick) 106 mg/dL (70-99) H Current Medications: Meds: Laboratory Tests Test 07/06/21 06:07 07/06/21 07:44 White Blood Count 6.0 x10^3/uL Red Blood Count 4.74 x10^6/uL Hemoglobin 15.0 g/dL Hematocrit 44.1 % Mean Corpuscular Volume 93 fL Mean Corpuscular Hemoglobin 32 pg Mean Corpuscular Hemoglobin Concent 34 g/dL Red Cell Distribution Width 13.8 % Platelet Count 155 x10^3/uL Neutrophils (%) (Auto) 57 % Lymphocytes (%) (Auto) 32 % Monocytes (%) (Auto) 8 % Eosinophils (%) (Auto) 3 % Basophils (%) (Auto) 1 % Neutrophils # (Auto) 3.4 x10^3uL Lymphocytes # (Auto) 1.9 x10^3/uL Monocytes # (Auto) 0.5 x10^3/uL Eosinophils # (Auto) 0.1 x10^3/uL Basophils # (Auto) 0.0 x10^3/uL Sodium Level 144 mmol/L Potassium Level 3.9 mmol/L Chloride Level 107 mmol/L Carbon Dioxide Level 29 mmol/L Anion Gap 8 Blood Urea Nitrogen 14 mg/dL Creatinine 0.8 mg/dL Estimated GFR (Cockcroft-Gault) 98.6 BUN/Creatinine Ratio 18 Glucose Level 109 mg/dL Calcium Level 8.5 mg/dL Total Bilirubin 0.5 mg/dL Aspartate Amino Transf (AST/SGOT) 14 U/L Alanine Aminotransferase (ALT/SGPT) 36 U/L Alkaline Phosphatase 84 U/L Total Protein 6.6 g/dL Albumin 3.8 g/dL Albumin/Globulin Ratio 1.4 Glucose (Fingerstick) 106 mg/dL Current Medications Medications (Trade) Dose Ordered Sig/Kaley Route PRN Reason Start Time Stop Time Status Last Admin Dose Admin Ascorbic Acid (Vitamin C) 1,000 mg DAILY PO 06/16/21 09:00 07/06/21 08:25 Aspirin (Aspirin Chewable) 81 mg DAILY PO 06/16/21 09:00 07/06/21 08:26 Atorvastatin Calcium (Lipitor) 20 mg QHS PO 06/15/21 21:00 07/06/21 20:27 Buspirone HCl (Buspar) 20 mg TID PO 06/15/21 21:00 07/06/21 20:27 Carbidopa/Levodopa (Sinemet 25/100) 1 tab BID94 PO 06/16/21 09:00 07/06/21 14:14 Clonazepam (KlonoPIN) 0.5 mg BID PO 06/15/21 21:00 07/06/21 20:27 Famotidine (Pepcid) 20 mg BID PO 06/15/21 21:00 07/06/21 20:27 Folic Acid (Folic Acid) 1 mg DAILY PO 06/16/21 09:00 07/06/21 08:26 Metformin HCl (Glucophage) 1,000 mg DAILYWBKFT PO 06/16/21 08:00 07/06/21 08:24 Quetiapine Fumarate (SEROquel) 50 mg DAILY PO 06/16/21 09:00 07/06/21 08:25 Quetiapine Fumarate (SEROquel) 100 mg DAILY@1400 PO 06/16/21 14:00 07/06/21 14:14 Citalopram Hydrobromide (CeleXA) 40 mg DAILY PO 06/16/21 09:00 07/06/21 08:25 Guaifenesin (Mucinex Er) 1,200 mg BID PO 06/15/21 21:00 06/17/21 15:45 DC 06/17/21 08:01 Lamotrigine (LaMICtal) 200 mg BID PO 06/15/21 21:00 07/06/21 20:27 Lisinopril (Prinivil) 2.5 mg DAILY PO 06/16/21 09:00 07/06/21 08:25 Quetiapine Fumarate (SEROquel) 300 mg HS PO 06/15/21 21:00 07/06/21 20:28 Zinc Sulfate (Orazinc) 220 mg DAILY PO 06/16/21 09:00 07/06/21 08:25 Acetaminophen (Tylenol) 650 mg PRN Q6HRS PRN PO MILD PAIN / TEMP > 100.3'F 06/15/21 20:00 07/06/21 17:00 Al Hydroxide/Mg Hydroxide (Mylanta Plus Xs) 30 ml PRN AFTMEALHC PRN PO DYSPEPSIA 06/15/21 20:00 Magnesium Hydroxide (Milk Of Magnesia) 2,400 mg PRN QHS PRN PO CONSTIPATION 06/15/21 20:00 Multi-Ingredient Ointment (Analgesic [place]) 1 erum PRN QID PRN TP MUSCLE PAIN 06/15/21 20:00 Vitamin D (Vitamin D3) 1,000 unit DAILY PO 07/04/21 09:00 07/06/21 08:25 I have reviewed the current psychotropics carefully including drug interactions. Risk benefit ratio favors no change other than as noted in my dictated progress note. Diagnosis: Problems: (1) Psychotic disorder (2) Anxiety disorder (3) Major depressive disorder, recurrent episode (4) Impulse control disorder LUTHER WARNER MD Jul 06, 2021 21:20
[2021-07-07 05:53] VITALS: BP 120/73
--- NOTE | 2021-07-07 07:41 | PDOC ---
Exam Note: Kal Note: The original record of this date cannot be traced in the medical record system and I am therefore re-dictating this note as a late entry for DOS 06/17/2021 on 07/06/2021. Subjective: The patient was reviewed on 06/17/2021 with nursing staff, discussed and reviewed the chart. The patient slept 8 hours previous night. He is verbal, interactive. Review of Systems: Ambulation impaired. No CV, , eye, ENT system symptoms on review. Mental Status Exam: Per nursing report, the patient is reasonably oriented. Speech coherent. Abstraction fair. Computation impaired. Language function intact. Attention span short. Mood and affect improved. No suicidal or homicidal ideation. Laboratory Data: Reviewed. Impression: Major depressive disorder, recurrent, rule out psychotic features. Anxiety disorder unspecified. Plan: Continue current psychotropics. Assessment: Vital Signs/I&O: Vital Signs Date Time Temp Pulse Resp B/P (MAP) Pulse Ox O2 Delivery O2 Flow Rate FiO2 07/07/21 05:53 97.2 74 18 120/73 (89) 97 07/06/21 15:38 Room Air I & O 07/06/21 07/06/21 07/07/21 15:00 23:00 07:00 Intake Total 720 ml 720 ml Balance 720 ml 720 ml Labs: Laboratory Tests Test 07/06/21 07:44 Glucose (Fingerstick) 106 mg/dL (70-99) H Current Medications: I have reviewed the current psychotropics carefully including drug interactions. Risk benefit ratio favors no change other than as noted in my dictated progress note. Diagnosis: Problems: (1) Anxiety disorder (2) Major depressive disorder, recurrent episode (3) Impulse control disorder (4) Psychotic disorder LUTHER WARNER MD Jul 07, 2021 07:41
[2021-07-07] MEDS: metFORMIN 500 MG TABLET PO SCH (08:09)
[2021-07-07] MEDS: CARBIDOPA/LEVODOPA 25/100MG TABLET PO SCH ×2 (08:09→14:59)
[2021-07-07] MEDS: CHOLECALCIFEROL (VITAMIN D3) 1,000 UNIT TABLET PO SCH (08:09)
[2021-07-07] MEDS: ZINC SULFATE 220 MG CAPSULE. PO SCH (08:09)
[2021-07-07] MEDS: ASCORBIC ACID 1,000 MG TABLET PO SCH (08:09)
[2021-07-07] MEDS: ASPIRIN CHEWABLE 81 MG TABLET. PO SCH (08:09)
[2021-07-07] MEDS: clonazePAM 0.5 MG TABLET PO SCH ×2 (08:10→20:34)
[2021-07-07] MEDS: FAMOTIDINE 20 MG TABLET PO SCH ×2 (08:10→20:34)
[2021-07-07] MEDS: CITALOPRAM 20 MG TABLET. PO SCH (08:10)
[2021-07-07] MEDS: busPIRone 10 MG TABLET. PO SCH ×3 (08:10→20:36)
[2021-07-07] MEDS: FOLIC ACID 1 MG TABLET PO SCH (08:10)
[2021-07-07] MEDS: QUEtiapine 50 MG TABLET. PO SCH (08:10)
[2021-07-07] MEDS: lamoTRIgine 100 MG TABLET. PO SCH ×2 (08:10→20:34)
[2021-07-07] MEDS: LISINOPRIL 5 MG TABLET. PO SCH (08:11)
[2021-07-07] MEDS: QUEtiapine 100 MG TABLET. PO SCH ×2 (15:00→20:34)
[2021-07-07 15:38] VITALS: BP 115/76
[2021-07-07] MEDS: ACETAMINOPHEN 325 MG TABLET PO PRN (17:13)
[2021-07-07] MEDS: ATORVASTATIN CALCIUM 20 MG TABLET PO SCH (20:34)
--- NOTE | 2021-07-07 21:46 | PDOC ---
Exam Note: Kal Note: Please also refer to the separate dictated note~for this date of service dictated separately.~Patient seen individually. Discussed the patient with Nursing staff reviewed the chart.~Reviewed interim history and current functioning. Reviewed vital signs,~Labs/ Radiology~and current medications noted below. Continue current treatment with the changes noted in the dictated addendum note Assessment: Vital Signs/I&O: Vital Signs Date Time Temp Pulse Resp B/P (MAP) Pulse Ox O2 Delivery O2 Flow Rate FiO2 07/07/21 15:38 97.7 94 20 115/76 (89) 95 07/06/21 15:38 Room Air I & O 07/06/21 07/06/21 07/07/21 15:00 23:00 07:00 Intake Total 720 ml 720 ml Balance 720 ml 720 ml Labs: Laboratory Tests Test 07/07/21 07:35 Glucose (Fingerstick) 112 mg/dL (70-99) H Current Medications: Meds: Laboratory Tests Test 07/07/21 07:35 Glucose (Fingerstick) 112 mg/dL Current Medications Medications (Trade) Dose Ordered Sig/Kaley Route PRN Reason Start Time Stop Time Status Last Admin Dose Admin Ascorbic Acid (Vitamin C) 1,000 mg DAILY PO 06/16/21 09:00 07/07/21 08:09 Aspirin (Aspirin Chewable) 81 mg DAILY PO 06/16/21 09:00 07/07/21 08:09 Atorvastatin Calcium (Lipitor) 20 mg QHS PO 06/15/21 21:00 07/07/21 20:34 Buspirone HCl (Buspar) 20 mg TID PO 06/15/21 21:00 07/07/21 20:36 Carbidopa/Levodopa (Sinemet 25/100) 1 tab BID94 PO 06/16/21 09:00 07/07/21 14:59 Clonazepam (KlonoPIN) 0.5 mg BID PO 06/15/21 21:00 07/07/21 20:34 Famotidine (Pepcid) 20 mg BID PO 06/15/21 21:00 07/07/21 20:34 Folic Acid (Folic Acid) 1 mg DAILY PO 06/16/21 09:00 07/07/21 08:10 Metformin HCl (Glucophage) 1,000 mg DAILYWBKFT PO 06/16/21 08:00 07/07/21 08:09 Quetiapine Fumarate (SEROquel) 50 mg DAILY PO 06/16/21 09:00 07/07/21 08:10 Quetiapine Fumarate (SEROquel) 100 mg DAILY@1400 PO 06/16/21 14:00 07/07/21 15:00 Citalopram Hydrobromide (CeleXA) 40 mg DAILY PO 06/16/21 09:00 07/07/21 08:10 Guaifenesin (Mucinex Er) 1,200 mg BID PO 06/15/21 21:00 06/17/21 15:45 DC 06/17/21 08:01 Lamotrigine (LaMICtal) 200 mg BID PO 06/15/21 21:00 07/07/21 20:34 Lisinopril (Prinivil) 2.5 mg DAILY PO 06/16/21 09:00 07/07/21 08:11 Quetiapine Fumarate (SEROquel) 300 mg HS PO 06/15/21 21:00 07/07/21 20:34 Zinc Sulfate (Orazinc) 220 mg DAILY PO 06/16/21 09:00 07/07/21 08:09 Acetaminophen (Tylenol) 650 mg PRN Q6HRS PRN PO MILD PAIN / TEMP > 100.3'F 06/15/21 20:00 07/07/21 17:13 Al Hydroxide/Mg Hydroxide (Mylanta Plus Xs) 30 ml PRN AFTMEALHC PRN PO DYSPEPSIA 06/15/21 20:00 Magnesium Hydroxide (Milk Of Magnesia) 2,400 mg PRN QHS PRN PO CONSTIPATION 06/15/21 20:00 Multi-Ingredient Ointment (Analgesic [place]) 1 erum PRN QID PRN TP MUSCLE PAIN 06/15/21 20:00 Vitamin D (Vitamin D3) 1,000 unit DAILY PO 07/04/21 09:00 07/07/21 08:09 I have reviewed the current psychotropics carefully including drug interactions. Risk benefit ratio favors no change other than as noted in my dictated progress note. Diagnosis: Problems: (1) Psychotic disorder (2) Anxiety disorder (3) Major depressive disorder, recurrent episode (4) Impulse control disorder LUTHER WARNER MD Jul 07, 2021 21:46
[2021-07-08 05:47] VITALS: BP 122/79
[2021-07-08] MEDS: metFORMIN 500 MG TABLET PO SCH (08:35)
[2021-07-08] MEDS: CITALOPRAM 20 MG TABLET. PO SCH (08:35)
[2021-07-08] MEDS: busPIRone 10 MG TABLET. PO SCH ×3 (08:35→20:03)
[2021-07-08] MEDS: CHOLECALCIFEROL (VITAMIN D3) 1,000 UNIT TABLET PO SCH (08:35)
[2021-07-08] MEDS: ZINC SULFATE 220 MG CAPSULE. PO SCH (08:36)
[2021-07-08] MEDS: ASPIRIN CHEWABLE 81 MG TABLET. PO SCH (08:36)
[2021-07-08] MEDS: lamoTRIgine 100 MG TABLET. PO SCH ×2 (08:36→20:03)
[2021-07-08] MEDS: ACETAMINOPHEN 325 MG TABLET PO PRN ×2 (08:36→17:49)
[2021-07-08] MEDS: CARBIDOPA/LEVODOPA 25/100MG TABLET PO SCH ×2 (08:36→15:01)
[2021-07-08] MEDS: FAMOTIDINE 20 MG TABLET PO SCH ×2 (08:36→20:03)
[2021-07-08] MEDS: QUEtiapine 50 MG TABLET. PO SCH (08:36)
[2021-07-08] MEDS: ASCORBIC ACID 1,000 MG TABLET PO SCH (08:36)
[2021-07-08] MEDS: FOLIC ACID 1 MG TABLET PO SCH (08:36)
[2021-07-08] MEDS: LISINOPRIL 5 MG TABLET. PO SCH (08:36)
[2021-07-08] MEDS: clonazePAM 0.5 MG TABLET PO SCH ×2 (08:36→20:02)
[2021-07-08] MEDS: QUEtiapine 100 MG TABLET. PO SCH ×2 (15:01→20:04)
[2021-07-08 15:40] VITALS: BP 117/74
[2021-07-08] MEDS: ATORVASTATIN CALCIUM 20 MG TABLET PO SCH (20:03)
--- NOTE | 2021-07-08 20:50 | PDOC ---
Exam Note: Kal Note: Please also refer to the separate dictated note~for this date of service dictated separately.~Patient seen individually. Discussed the patient with Nursing staff reviewed the chart.~Reviewed interim history and current functioning. Reviewed vital signs,~Labs/ Radiology~and current medications noted below. Continue current treatment with the changes noted in the dictated addendum note Assessment: Vital Signs/I&O: Vital Signs Date Time Temp Pulse Resp B/P (MAP) Pulse Ox O2 Delivery O2 Flow Rate FiO2 07/08/21 15:40 98.1 89 20 117/74 (88) 96 Room Air I & O 07/07/21 07/07/21 07/08/21 14:59 22:59 06:59 Intake Total 1060 ml 620 ml Balance 1060 ml 620 ml Labs: Laboratory Tests Test 07/08/21 07:38 Glucose (Fingerstick) 123 mg/dL (70-99) H Current Medications: Meds: Laboratory Tests Test 07/08/21 07:38 Glucose (Fingerstick) 123 mg/dL Current Medications Medications (Trade) Dose Ordered Sig/Kaley Route PRN Reason Start Time Stop Time Status Last Admin Dose Admin Ascorbic Acid (Vitamin C) 1,000 mg DAILY PO 06/16/21 09:00 07/08/21 08:36 Aspirin (Aspirin Chewable) 81 mg DAILY PO 06/16/21 09:00 07/08/21 08:36 Atorvastatin Calcium (Lipitor) 20 mg QHS PO 06/15/21 21:00 07/08/21 20:03 Buspirone HCl (Buspar) 20 mg TID PO 06/15/21 21:00 07/08/21 20:03 Carbidopa/Levodopa (Sinemet 25/100) 1 tab BID94 PO 06/16/21 09:00 07/08/21 15:01 Clonazepam (KlonoPIN) 0.5 mg BID PO 06/15/21 21:00 07/08/21 20:02 Famotidine (Pepcid) 20 mg BID PO 06/15/21 21:00 07/08/21 20:03 Folic Acid (Folic Acid) 1 mg DAILY PO 06/16/21 09:00 07/08/21 08:36 Metformin HCl (Glucophage) 1,000 mg DAILYWBKFT PO 06/16/21 08:00 07/08/21 08:35 Quetiapine Fumarate (SEROquel) 50 mg DAILY PO 06/16/21 09:00 07/08/21 08:36 Quetiapine Fumarate (SEROquel) 100 mg DAILY@1400 PO 06/16/21 14:00 07/08/21 15:01 Citalopram Hydrobromide (CeleXA) 40 mg DAILY PO 06/16/21 09:00 07/08/21 08:35 Guaifenesin (Mucinex Er) 1,200 mg BID PO 06/15/21 21:00 06/17/21 15:45 DC 06/17/21 08:01 Lamotrigine (LaMICtal) 200 mg BID PO 06/15/21 21:00 07/08/21 20:03 Lisinopril (Prinivil) 2.5 mg DAILY PO 06/16/21 09:00 07/08/21 08:36 Quetiapine Fumarate (SEROquel) 300 mg HS PO 06/15/21 21:00 07/08/21 20:04 Zinc Sulfate (Orazinc) 220 mg DAILY PO 06/16/21 09:00 07/08/21 08:36 Acetaminophen (Tylenol) 650 mg PRN Q6HRS PRN PO MILD PAIN / TEMP > 100.3'F 06/15/21 20:00 07/08/21 17:49 Al Hydroxide/Mg Hydroxide (Mylanta Plus Xs) 30 ml PRN AFTMEALHC PRN PO DYSPEPSIA 06/15/21 20:00 Magnesium Hydroxide (Milk Of Magnesia) 2,400 mg PRN QHS PRN PO CONSTIPATION 06/15/21 20:00 Multi-Ingredient Ointment (Analgesic [place]) 1 erum PRN QID PRN TP MUSCLE PAIN 06/15/21 20:00 Vitamin D (Vitamin D3) 1,000 unit DAILY PO 07/04/21 09:00 07/08/21 08:35 I have reviewed the current psychotropics carefully including drug interactions. Risk benefit ratio favors no change other than as noted in my dictated progress note. Diagnosis: Problems: (1) Psychotic disorder (2) Anxiety disorder (3) Major depressive disorder, recurrent episode (4) Impulse control disorder LUTHER WARNER MD Jul 08, 2021 20:50
[2021-07-09 06:17] VITALS: BP 113/73
[2021-07-09] MEDS: metFORMIN 500 MG TABLET PO SCH (08:05)
[2021-07-09] MEDS: QUEtiapine 50 MG TABLET. PO SCH (08:05)
[2021-07-09] MEDS: CHOLECALCIFEROL (VITAMIN D3) 1,000 UNIT TABLET PO SCH (08:05)
[2021-07-09] MEDS: FAMOTIDINE 20 MG TABLET PO SCH ×2 (08:05→17:30)
[2021-07-09] MEDS: lamoTRIgine 100 MG TABLET. PO SCH ×2 (08:05→17:31)
[2021-07-09] MEDS: CITALOPRAM 20 MG TABLET. PO SCH (08:06)
[2021-07-09] MEDS: FOLIC ACID 1 MG TABLET PO SCH (08:06)
[2021-07-09] MEDS: LISINOPRIL 5 MG TABLET. PO SCH (08:06)
[2021-07-09] MEDS: busPIRone 10 MG TABLET. PO SCH ×3 (08:06→17:30)
[2021-07-09] MEDS: CARBIDOPA/LEVODOPA 25/100MG TABLET PO SCH ×2 (08:06→14:58)
[2021-07-09] MEDS: ZINC SULFATE 220 MG CAPSULE. PO SCH (08:06)
[2021-07-09] MEDS: ASPIRIN CHEWABLE 81 MG TABLET. PO SCH (08:06)
[2021-07-09] MEDS: ASCORBIC ACID 1,000 MG TABLET PO SCH (08:06)
[2021-07-09] MEDS: clonazePAM 0.5 MG TABLET PO SCH ×2 (08:07→17:30)
--- NOTE | 2021-07-09 08:19 | PDOC ---
Exam Note: Kal Note: This note is a late entry for 07/07/2021 covers elements not covered in my initial note. Subjective: The patient was reviewed at treatment team meeting in the morning on 07/07/2021 with Leah Zhu, Shandra Díaz, and Kailee Hines (neonatal social worker), Sumi, activity therapy, Yenifer Yusuf, Hockey Instructor, and Philip BALLARD, discussed and reviewed the chart. Discussed and reviewed his progress, placement options, psychotropic medications. Appetite 100%. The patient slept 7 hours previous night. He attended 6 groups. Also met with him in the evening in his room. Overall the patient is doing well. He remains isolated in his room, listens to kaylie, watches his shows and listens to music on this. No psychotic symptoms, suicidal or homicidal ideation on pertinent and specific questioning by me in the evening by me. Review of Systems: No CV, , pulmonary, eye, ENT system symptoms on review. Mental Status Exam: The patient is quite alert and oriented. Speech coherent, pleasant, verbal, smiling at times. Abstraction fair. Computation impaired. Language function intact. Mood and affect appears appropriate for his diagnosis. No suicidal or homicidal ideation. Laboratory Data: Reviewed. Impression: Major depressive disorder, recurrent, rule out psychotic features. Anxiety disorder unspecified. Plan: We are still awaiting placement options and discussed this at treatment team meeting. Assessment: Vital Signs/I&O: Vital Signs Date Time Temp Pulse Resp B/P (MAP) Pulse Ox O2 Delivery O2 Flow Rate FiO2 07/09/21 08:06 72 113/73 07/09/21 06:17 98.4 16 98 07/08/21 15:40 Room Air I & O 07/08/21 07/08/21 07/09/21 15:00 23:00 07:00 Intake Total 820 ml 620 ml Balance 820 ml 620 ml Labs: Laboratory Tests Test 07/09/21 07:45 Glucose (Fingerstick) 104 mg/dL (70-99) H Current Medications: Meds: Laboratory Tests Test 07/09/21 07:45 Glucose (Fingerstick) 104 mg/dL Current Medications Medications (Trade) Dose Ordered Sig/Kaley Route PRN Reason Start Time Stop Time Status Last Admin Dose Admin Ascorbic Acid (Vitamin C) 1,000 mg DAILY PO 06/16/21 09:00 07/09/21 08:06 Aspirin (Aspirin Chewable) 81 mg DAILY PO 06/16/21 09:00 07/09/21 08:06 Atorvastatin Calcium (Lipitor) 20 mg QHS PO 06/15/21 21:00 07/08/21 20:03 Buspirone HCl (Buspar) 20 mg TID PO 06/15/21 21:00 07/09/21 08:06 Carbidopa/Levodopa (Sinemet 25/100) 1 tab BID94 PO 06/16/21 09:00 07/09/21 08:06 Clonazepam (KlonoPIN) 0.5 mg BID PO 06/15/21 21:00 07/09/21 08:07 Famotidine (Pepcid) 20 mg BID PO 06/15/21 21:00 07/09/21 08:05 Folic Acid (Folic Acid) 1 mg DAILY PO 06/16/21 09:00 07/09/21 08:06 Metformin HCl (Glucophage) 1,000 mg DAILYWBKFT PO 06/16/21 08:00 07/09/21 08:05 Quetiapine Fumarate (SEROquel) 50 mg DAILY PO 06/16/21 09:00 07/09/21 08:05 Quetiapine Fumarate (SEROquel) 100 mg DAILY@1400 PO 06/16/21 14:00 07/08/21 15:01 Citalopram Hydrobromide (CeleXA) 40 mg DAILY PO 06/16/21 09:00 07/09/21 08:06 Guaifenesin (Mucinex Er) 1,200 mg BID PO 06/15/21 21:00 06/17/21 15:45 DC 06/17/21 08:01 Lamotrigine (LaMICtal) 200 mg BID PO 06/15/21 21:00 07/09/21 08:05 Lisinopril (Prinivil) 2.5 mg DAILY PO 06/16/21 09:00 07/09/21 08:06 Quetiapine Fumarate (SEROquel) 300 mg HS PO 06/15/21 21:00 07/08/21 20:04 Zinc Sulfate (Orazinc) 220 mg DAILY PO 06/16/21 09:00 07/09/21 08:06 Acetaminophen (Tylenol) 650 mg PRN Q6HRS PRN PO MILD PAIN / TEMP > 100.3'F 06/15/21 20:00 07/08/21 17:49 Al Hydroxide/Mg Hydroxide (Mylanta Plus Xs) 30 ml PRN AFTMEALHC PRN PO DYSPEPSIA 06/15/21 20:00 Magnesium Hydroxide (Milk Of Magnesia) 2,400 mg PRN QHS PRN PO CONSTIPATION 06/15/21 20:00 Multi-Ingredient Ointment (Analgesic [place]) 1 erum PRN QID PRN TP MUSCLE PAIN 06/15/21 20:00 Vitamin D (Vitamin D3) 1,000 unit DAILY PO 07/04/21 09:00 07/09/21 08:05 I have reviewed the current psychotropics carefully including drug interactions. Risk benefit ratio favors no change other than as noted in my dictated progress note. Diagnosis: Problems: (1) Psychotic disorder (2) Anxiety disorder (3) Major depressive disorder, recurrent episode (4) Impulse control disorder LUTHER WARNER MD Jul 09, 2021 08:19
--- NOTE | 2021-07-09 08:36 | PDOC ---
Exam Note: Kal Note: This note is a late entry for 07/08/2021 covers elements not covered in my initial note. Subjective: The patient was seen individually on 07/08/2021, discussed and reviewed the chart with Teetee BALLARD. The patient slept 8 hours previous night. I met with him in his room. He was again listening to music on his kaylie, very pleasant. No psychotic symptoms, suicidal or homicidal ideation. Review of Systems: No CV, , pulmonary, eye, ENT system symptoms on review. Mental Status Exam: The patient is quite alert and oriented. Speech coherent, pleasant, verbal, smiling at times. Abstraction fair. Computation impaired. Language function intact. Mood and affect appears appropriate for his diagnosis. No suicidal or homicidal ideation. Laboratory Data: Reviewed. Impression: Major depressive disorder, recurrent, rule out psychotic features. Anxiety disorder unspecified. Plan: No change from initial note. Assessment: Vital Signs/I&O: Vital Signs Date Time Temp Pulse Resp B/P (MAP) Pulse Ox O2 Delivery O2 Flow Rate FiO2 07/09/21 08:06 72 113/73 07/09/21 06:17 98.4 16 98 07/08/21 15:40 Room Air I & O 07/08/21 07/08/21 07/09/21 15:00 23:00 07:00 Intake Total 820 ml 620 ml Balance 820 ml 620 ml Labs: Laboratory Tests Test 07/09/21 07:45 Glucose (Fingerstick) 104 mg/dL (70-99) H Current Medications: I have reviewed the current psychotropics carefully including drug interactions. Risk benefit ratio favors no change other than as noted in my dictated progress note. Diagnosis: Problems: (1) Anxiety disorder (2) Psychotic disorder (3) Major depressive disorder, recurrent episode (4) Impulse control disorder LUTHER WARNER MD Jul 09, 2021 08:36
[2021-07-09] MEDS: QUEtiapine 100 MG TABLET. PO SCH ×2 (14:58→17:30)
[2021-07-09 15:30] VITALS: BP 126/80
[2021-07-09] MEDS: ATORVASTATIN CALCIUM 20 MG TABLET PO SCH (17:30)
[2021-07-09] MEDS: ACETAMINOPHEN 325 MG TABLET PO PRN (17:30)
--- NOTE | 2021-07-09 22:05 | PDOC ---
Exam Note: Kal Note: Please also refer to the separate dictated note~for this date of service dictated separately.~Patient seen individually. Discussed the patient with Nursing staff reviewed the chart.~Reviewed interim history and current functioning. Reviewed vital signs,~Labs/ Radiology~and current medications noted below. Continue current treatment with the changes noted in the dictated addendum note Assessment: Vital Signs/I&O: Vital Signs Date Time Temp Pulse Resp B/P (MAP) Pulse Ox O2 Delivery O2 Flow Rate FiO2 07/09/21 15:30 97.8 88 20 126/80 (95) 96 Room Air I & O 07/08/21 07/08/21 07/09/21 15:00 23:00 07:00 Intake Total 820 ml 620 ml Balance 820 ml 620 ml Labs: Laboratory Tests Test 07/09/21 07:45 Glucose (Fingerstick) 104 mg/dL (70-99) H Current Medications: Meds: Laboratory Tests Test 07/09/21 07:45 Glucose (Fingerstick) 104 mg/dL Current Medications Medications (Trade) Dose Ordered Sig/Kaley Route PRN Reason Start Time Stop Time Status Last Admin Dose Admin Ascorbic Acid (Vitamin C) 1,000 mg DAILY PO 06/16/21 09:00 07/09/21 08:06 Aspirin (Aspirin Chewable) 81 mg DAILY PO 06/16/21 09:00 07/09/21 08:06 Atorvastatin Calcium (Lipitor) 20 mg QHS PO 06/15/21 21:00 07/09/21 17:30 Buspirone HCl (Buspar) 20 mg TID PO 06/15/21 21:00 07/09/21 17:30 Carbidopa/Levodopa (Sinemet 25/100) 1 tab BID94 PO 06/16/21 09:00 07/09/21 14:58 Clonazepam (KlonoPIN) 0.5 mg BID PO 06/15/21 21:00 07/09/21 17:30 Famotidine (Pepcid) 20 mg BID PO 06/15/21 21:00 07/09/21 17:30 Folic Acid (Folic Acid) 1 mg DAILY PO 06/16/21 09:00 07/09/21 08:06 Metformin HCl (Glucophage) 1,000 mg DAILYWBKFT PO 06/16/21 08:00 07/09/21 08:05 Quetiapine Fumarate (SEROquel) 50 mg DAILY PO 06/16/21 09:00 07/09/21 08:05 Quetiapine Fumarate (SEROquel) 100 mg DAILY@1400 PO 06/16/21 14:00 07/09/21 14:58 Citalopram Hydrobromide (CeleXA) 40 mg DAILY PO 06/16/21 09:00 07/09/21 08:06 Guaifenesin (Mucinex Er) 1,200 mg BID PO 06/15/21 21:00 06/17/21 15:45 DC 06/17/21 08:01 Lamotrigine (LaMICtal) 200 mg BID PO 06/15/21 21:00 07/09/21 17:31 Lisinopril (Prinivil) 2.5 mg DAILY PO 06/16/21 09:00 07/09/21 08:06 Quetiapine Fumarate (SEROquel) 300 mg HS PO 06/15/21 21:00 07/09/21 17:30 Zinc Sulfate (Orazinc) 220 mg DAILY PO 06/16/21 09:00 07/09/21 08:06 Acetaminophen (Tylenol) 650 mg PRN Q6HRS PRN PO MILD PAIN / TEMP > 100.3'F 06/15/21 20:00 07/09/21 17:30 Al Hydroxide/Mg Hydroxide (Mylanta Plus Xs) 30 ml PRN AFTMEALHC PRN PO DYSPEPSIA 06/15/21 20:00 Magnesium Hydroxide (Milk Of Magnesia) 2,400 mg PRN QHS PRN PO CONSTIPATION 06/15/21 20:00 Multi-Ingredient Ointment (Analgesic [place]) 1 erum PRN QID PRN TP MUSCLE PAIN 06/15/21 20:00 Vitamin D (Vitamin D3) 1,000 unit DAILY PO 07/04/21 09:00 07/09/21 08:05 I have reviewed the current psychotropics carefully including drug interactions. Risk benefit ratio favors no change other than as noted in my dictated progress note. Diagnosis: Problems: (1) Psychotic disorder (2) Anxiety disorder (3) Major depressive disorder, recurrent episode (4) Impulse control disorder LUTHER WARNER MD Jul 09, 2021 22:05
[2021-07-10 06:02] VITALS: BP 146/78
--- NOTE | 2021-07-10 06:38 | PDOC ---
Exam Note: Kal Note: This note is a late entry for 07/06/2021 covers elements not covered in my initial note. Subjective: The patient was seen individually on 07/06/2021, discussed and reviewed the chart with Morelia BALLARD. The patient slept 8 hours previous night. The patient is doing reasonably well. Review of Systems: No CV, , pulmonary, eye, ENT system symptoms on review. Mental Status Exam: The patient is reasonably oriented. Again met with the galdino wells in his room. He was watching a video on the [employer] about some historical facts and the [employer] and was able to discuss this with me. Speech coherent. Abstraction fair. Computation impaired. Language function intact. Attention span short. No psychotic symptoms or suicidal ideation. Laboratory Data: Reviewed. Impression: Major depressive disorder, recurrent, rule out psychotic features. Anxiety disorder unspecified. Plan: No change from initial note. We are still waiting his placement. Assessment: Vital Signs/I&O: Vital Signs Date Time Temp Pulse Resp B/P (MAP) Pulse Ox O2 Delivery O2 Flow Rate FiO2 07/10/21 06:02 97.8 96 18 146/78 (100) 95 07/09/21 15:30 Room Air I & O 07/09/21 07/09/21 07/10/21 15:00 23:00 07:00 Intake Total 720 ml 440 ml Balance 720 ml 440 ml Labs: Laboratory Tests Test 07/09/21 07:45 Glucose (Fingerstick) 104 mg/dL (70-99) H Current Medications: I have reviewed the current psychotropics carefully including drug interactions. Risk benefit ratio favors no change other than as noted in my dictated progress note. Diagnosis: Problems: (1) Psychotic disorder (2) Anxiety disorder (3) Major depressive disorder, recurrent episode (4) Impulse control disorder LUTHER WARNER MD Jul 10, 2021 06:38
--- NOTE | 2021-07-10 06:52 | PDOC ---
Exam Note: Kal Note: This note is a late entry for 07/09/2021 covers elements not covered in my initial note. Subjective: The patient was seen individually on 07/09/2021, discussed and reviewed the chart with Teetee BALLARD. The patient slept 6-3/4 hours previous night. I met with him in his room at some length. As before he was again on kaylie but watching and listening to educational channels on kaylie rather than music. He denies psychotic symptoms or suicidal ideation. He is eagerly awaiting placement and I addressed with him. Review of Systems: No CV, , pulmonary, eye, ENT system symptoms on review. Mental Status Exam: The patient is quite alert and oriented. Speech coherent. Abstraction fair. Computation impaired. Language function intact. Mood and affect appears appropriate for his diagnosis. No suicidal or homicidal ideation. Laboratory Data: Reviewed. Impression: Major depressive disorder, recurrent, rule out psychotic features. Anxiety disorder unspecified. Plan: No change from initial note. Assessment: Vital Signs/I&O: Vital Signs Date Time Temp Pulse Resp B/P (MAP) Pulse Ox O2 Delivery O2 Flow Rate FiO2 07/10/21 06:02 97.8 96 18 146/78 (100) 95 07/09/21 15:30 Room Air I & O 07/09/21 07/09/21 07/10/21 15:00 23:00 07:00 Intake Total 720 ml 440 ml Balance 720 ml 440 ml Labs: Laboratory Tests Test 07/09/21 07:45 Glucose (Fingerstick) 104 mg/dL (70-99) H Current Medications: I have reviewed the current psychotropics carefully including drug interactions. Risk benefit ratio favors no change other than as noted in my dictated progress note. Diagnosis: Problems: (1) Psychotic disorder (2) Anxiety disorder (3) Major depressive disorder, recurrent episode (4) Impulse control disorder LUTHER WARNER MD Jul 10, 2021 06:52
[2021-07-10] MEDS: metFORMIN 500 MG TABLET PO SCH (08:05)
[2021-07-10] MEDS: busPIRone 10 MG TABLET. PO SCH ×3 (08:05→19:51)
[2021-07-10] MEDS: lamoTRIgine 100 MG TABLET. PO SCH ×2 (08:05→19:53)
[2021-07-10] MEDS: ASCORBIC ACID 1,000 MG TABLET PO SCH (08:05)
[2021-07-10] MEDS: QUEtiapine 50 MG TABLET. PO SCH (08:05)
[2021-07-10] MEDS: FOLIC ACID 1 MG TABLET PO SCH (08:05)
[2021-07-10] MEDS: ZINC SULFATE 220 MG CAPSULE. PO SCH (08:05)
[2021-07-10] MEDS: LISINOPRIL 5 MG TABLET. PO SCH (08:06)
[2021-07-10] MEDS: FAMOTIDINE 20 MG TABLET PO SCH ×2 (08:06→19:52)
[2021-07-10] MEDS: CITALOPRAM 20 MG TABLET. PO SCH (08:07)
[2021-07-10] MEDS: ASPIRIN CHEWABLE 81 MG TABLET. PO SCH (08:07)
[2021-07-10] MEDS: CARBIDOPA/LEVODOPA 25/100MG TABLET PO SCH ×2 (08:07→15:08)
[2021-07-10] MEDS: CHOLECALCIFEROL (VITAMIN D3) 1,000 UNIT TABLET PO SCH (08:07)
[2021-07-10] MEDS: clonazePAM 0.5 MG TABLET PO SCH ×2 (08:48→19:51)
[2021-07-10] MEDS: QUEtiapine 100 MG TABLET. PO SCH ×2 (15:08→19:52)
[2021-07-10 15:47] VITALS: BP 142/82
[2021-07-10] MEDS: ACETAMINOPHEN 325 MG TABLET PO PRN (17:34)
[2021-07-10] MEDS: ATORVASTATIN CALCIUM 20 MG TABLET PO SCH (19:53)
--- NOTE | 2021-07-10 21:40 | PDOC ---
Exam Note: Kal Note: Please also refer to the separate dictated note~for this date of service dictated separately.~Patient seen individually. Discussed the patient with Nursing staff reviewed the chart.~Reviewed interim history and current functioning. Reviewed vital signs,~Labs/ Radiology~and current medications noted below. Continue current treatment with the changes noted in the dictated addendum note Assessment: Vital Signs/I&O: Vital Signs Date Time Temp Pulse Resp B/P (MAP) Pulse Ox O2 Delivery O2 Flow Rate FiO2 07/10/21 15:47 98.0 83 18 142/82 (102) 95 07/09/21 15:30 Room Air I & O 07/09/21 07/09/21 07/10/21 15:00 23:00 07:00 Intake Total 720 ml 440 ml Balance 720 ml 440 ml Labs: Laboratory Tests Test 07/10/21 07:48 Glucose (Fingerstick) 112 mg/dL (70-99) H Current Medications: Meds: Laboratory Tests Test 07/10/21 07:48 Glucose (Fingerstick) 112 mg/dL Current Medications Medications (Trade) Dose Ordered Sig/Kaley Route PRN Reason Start Time Stop Time Status Last Admin Dose Admin Ascorbic Acid (Vitamin C) 1,000 mg DAILY PO 06/16/21 09:00 07/10/21 08:05 Aspirin (Aspirin Chewable) 81 mg DAILY PO 06/16/21 09:00 07/10/21 08:07 Atorvastatin Calcium (Lipitor) 20 mg QHS PO 06/15/21 21:00 07/10/21 19:53 Buspirone HCl (Buspar) 20 mg TID PO 06/15/21 21:00 07/10/21 19:51 Carbidopa/Levodopa (Sinemet 25/100) 1 tab BID94 PO 06/16/21 09:00 07/10/21 15:08 Clonazepam (KlonoPIN) 0.5 mg BID PO 06/15/21 21:00 07/10/21 19:51 Famotidine (Pepcid) 20 mg BID PO 06/15/21 21:00 07/10/21 19:52 Folic Acid (Folic Acid) 1 mg DAILY PO 06/16/21 09:00 07/10/21 08:05 Metformin HCl (Glucophage) 1,000 mg DAILYWBKFT PO 06/16/21 08:00 07/10/21 08:05 Quetiapine Fumarate (SEROquel) 50 mg DAILY PO 06/16/21 09:00 07/10/21 08:05 Quetiapine Fumarate (SEROquel) 100 mg DAILY@1400 PO 06/16/21 14:00 07/10/21 15:08 Citalopram Hydrobromide (CeleXA) 40 mg DAILY PO 06/16/21 09:00 07/10/21 08:07 Guaifenesin (Mucinex Er) 1,200 mg BID PO 06/15/21 21:00 06/17/21 15:45 DC 06/17/21 08:01 Lamotrigine (LaMICtal) 200 mg BID PO 06/15/21 21:00 07/10/21 19:53 Lisinopril (Prinivil) 2.5 mg DAILY PO 06/16/21 09:00 07/10/21 08:06 Quetiapine Fumarate (SEROquel) 300 mg HS PO 06/15/21 21:00 07/10/21 19:52 Zinc Sulfate (Orazinc) 220 mg DAILY PO 06/16/21 09:00 07/10/21 08:05 Acetaminophen (Tylenol) 650 mg PRN Q6HRS PRN PO MILD PAIN / TEMP > 100.3'F 06/15/21 20:00 07/10/21 17:34 Al Hydroxide/Mg Hydroxide (Mylanta Plus Xs) 30 ml PRN AFTMEALHC PRN PO DYSPEPSIA 06/15/21 20:00 Magnesium Hydroxide (Milk Of Magnesia) 2,400 mg PRN QHS PRN PO CONSTIPATION 06/15/21 20:00 Multi-Ingredient Ointment (Analgesic [place]) 1 erum PRN QID PRN TP MUSCLE PAIN 06/15/21 20:00 Vitamin D (Vitamin D3) 1,000 unit DAILY PO 07/04/21 09:00 07/10/21 08:07 I have reviewed the current psychotropics carefully including drug interactions. Risk benefit ratio favors no change other than as noted in my dictated progress note. Diagnosis: Problems: (1) Psychotic disorder (2) Anxiety disorder (3) Major depressive disorder, recurrent episode (4) Impulse control disorder LUTHER WARNER MD Jul 10, 2021 21:40
[2021-07-11] MEDS: ACETAMINOPHEN 325 MG TABLET PO PRN ×2 (05:13→15:00)
[2021-07-11 06:16] VITALS: BP 120/79
--- NOTE | 2021-07-11 07:09 | PDOC ---
Exam Note: Kal Note: This note is a late entry for 07/10/2021 covers elements not covered in my initial note. Subjective: The patient was seen individually on 07/10/2021, discussed and reviewed the chart with Philip BALLARD. According to the nursing report, the patient is doing the same. No psychotic symptoms or suicidal ideation. I met with him in his room. He now has a roommate where previously he had a room by himself but he seems to be adjusting to the roommate. Review of Systems: No CV, , pulmonary, eye, ENT system symptoms on review. Mental Status Exam: The patient is alert and oriented. Speech coherent. Abstraction fair. Computation impaired. Language function intact. No psychotic symptoms, suicidal or homicidal ideation. Laboratory Data: Reviewed. Impression: Major depressive disorder, recurrent, rule out psychotic features. Anxiety disorder unspecified. Plan: No change from initial note. Assessment: Vital Signs/I&O: Vital Signs Date Time Temp Pulse Resp B/P (MAP) Pulse Ox O2 Delivery O2 Flow Rate FiO2 07/11/21 06:16 97.1 84 22 120/79 (93) 93 Room Air I & O 07/10/21 07/10/21 07/11/21 15:00 23:00 07:00 Intake Total 600 ml 240 ml Balance 600 ml 240 ml Labs: Laboratory Tests Test 07/10/21 07:48 Glucose (Fingerstick) 112 mg/dL (70-99) H Current Medications: I have reviewed the current psychotropics carefully including drug interactions. Risk benefit ratio favors no change other than as noted in my dictated progress note. Diagnosis: Problems: (1) Psychotic disorder (2) Anxiety disorder (3) Major depressive disorder, recurrent episode (4) Impulse control disorder LUTHER WARNER MD Jul 11, 2021 07:09
[2021-07-11] MEDS: CARBIDOPA/LEVODOPA 25/100MG TABLET PO SCH ×2 (08:23→15:00)
[2021-07-11] MEDS: CHOLECALCIFEROL (VITAMIN D3) 1,000 UNIT TABLET PO SCH (08:23)
[2021-07-11] MEDS: metFORMIN 500 MG TABLET PO SCH (08:23)
[2021-07-11] MEDS: FAMOTIDINE 20 MG TABLET PO SCH ×2 (08:23→19:49)
[2021-07-11] MEDS: busPIRone 10 MG TABLET. PO SCH ×3 (08:23→19:49)
[2021-07-11] MEDS: lamoTRIgine 100 MG TABLET. PO SCH ×2 (08:23→19:48)
[2021-07-11] MEDS: FOLIC ACID 1 MG TABLET PO SCH (08:24)
[2021-07-11] MEDS: CITALOPRAM 20 MG TABLET. PO SCH (08:24)
[2021-07-11] MEDS: ASPIRIN CHEWABLE 81 MG TABLET. PO SCH (08:24)
[2021-07-11] MEDS: QUEtiapine 50 MG TABLET. PO SCH ×2 (08:24→15:00)
[2021-07-11] MEDS: ZINC SULFATE 220 MG CAPSULE. PO SCH (08:24)
[2021-07-11] MEDS: clonazePAM 0.5 MG TABLET PO SCH ×2 (08:25→19:48)
[2021-07-11] MEDS: LISINOPRIL 5 MG TABLET. PO SCH (08:25)
[2021-07-11] MEDS: ASCORBIC ACID 1,000 MG TABLET PO SCH (08:29)
[2021-07-11] MEDS: QUEtiapine 100 MG TABLET. PO SCH ×2 (14:00→19:47)
[2021-07-11 15:27] VITALS: BP 115/73
[2021-07-11] MEDS: ATORVASTATIN CALCIUM 20 MG TABLET PO SCH (19:48)
--- NOTE | 2021-07-11 21:47 | PDOC ---
Exam Note: Kal Note: Please also refer to the separate dictated note~for this date of service dictated separately.~Patient seen individually. Discussed the patient with Nursing staff reviewed the chart.~Reviewed interim history and current functioning. Reviewed vital signs,~Labs/ Radiology~and current medications noted below. Continue current treatment with the changes noted in the dictated addendum note Assessment: Vital Signs/I&O: Vital Signs Date Time Temp Pulse Resp B/P (MAP) Pulse Ox O2 Delivery O2 Flow Rate FiO2 07/11/21 15:27 98.0 89 18 115/73 (87) 97 07/11/21 06:16 Room Air I & O 07/10/21 07/10/21 07/11/21 15:00 23:00 07:00 Intake Total 600 ml 240 ml Balance 600 ml 240 ml Labs: Laboratory Tests Test 07/11/21 07:46 Glucose (Fingerstick) 108 mg/dL (70-99) H Current Medications: Meds: Laboratory Tests Test 07/11/21 07:46 Glucose (Fingerstick) 108 mg/dL Current Medications Medications (Trade) Dose Ordered Sig/Kaley Route PRN Reason Start Time Stop Time Status Last Admin Dose Admin Ascorbic Acid (Vitamin C) 1,000 mg DAILY PO 06/16/21 09:00 07/11/21 08:29 Aspirin (Aspirin Chewable) 81 mg DAILY PO 06/16/21 09:00 07/11/21 08:24 Atorvastatin Calcium (Lipitor) 20 mg QHS PO 06/15/21 21:00 07/11/21 19:48 Buspirone HCl (Buspar) 20 mg TID PO 06/15/21 21:00 07/11/21 19:49 Carbidopa/Levodopa (Sinemet 25/100) 1 tab BID94 PO 06/16/21 09:00 07/11/21 15:00 Clonazepam (KlonoPIN) 0.5 mg BID PO 06/15/21 21:00 07/11/21 19:48 Famotidine (Pepcid) 20 mg BID PO 06/15/21 21:00 07/11/21 19:49 Folic Acid (Folic Acid) 1 mg DAILY PO 06/16/21 09:00 07/11/21 08:24 Metformin HCl (Glucophage) 1,000 mg DAILYWBKFT PO 06/16/21 08:00 07/11/21 08:23 Quetiapine Fumarate (SEROquel) 50 mg DAILY PO 06/16/21 09:00 07/11/21 15:00 Quetiapine Fumarate (SEROquel) 100 mg DAILY@1400 PO 06/16/21 14:00 07/11/21 14:00 Citalopram Hydrobromide (CeleXA) 40 mg DAILY PO 06/16/21 09:00 07/11/21 08:24 Guaifenesin (Mucinex Er) 1,200 mg BID PO 06/15/21 21:00 06/17/21 15:45 DC 06/17/21 08:01 Lamotrigine (LaMICtal) 200 mg BID PO 06/15/21 21:00 07/11/21 19:48 Lisinopril (Prinivil) 2.5 mg DAILY PO 06/16/21 09:00 07/11/21 08:25 Quetiapine Fumarate (SEROquel) 300 mg HS PO 06/15/21 21:00 07/11/21 19:47 Zinc Sulfate (Orazinc) 220 mg DAILY PO 06/16/21 09:00 07/11/21 08:24 Acetaminophen (Tylenol) 650 mg PRN Q6HRS PRN PO MILD PAIN / TEMP > 100.3'F 06/15/21 20:00 07/11/21 15:00 Al Hydroxide/Mg Hydroxide (Mylanta Plus Xs) 30 ml PRN AFTMEALHC PRN PO DYSPEPSIA 06/15/21 20:00 Magnesium Hydroxide (Milk Of Magnesia) 2,400 mg PRN QHS PRN PO CONSTIPATION 06/15/21 20:00 Multi-Ingredient Ointment (Analgesic [place]) 1 erum PRN QID PRN TP MUSCLE PAIN 06/15/21 20:00 Vitamin D (Vitamin D3) 1,000 unit DAILY PO 07/04/21 09:00 07/11/21 08:23 I have reviewed the current psychotropics carefully including drug interactions. Risk benefit ratio favors no change other than as noted in my dictated progress note. Diagnosis: Problems: (1) Psychotic disorder (2) Anxiety disorder (3) Major depressive disorder, recurrent episode (4) Impulse control disorder LUTHER WARNER MD Jul 11, 2021 21:47
[2021-07-12 06:02] VITALS: BP 119/80
[2021-07-12] MEDS: ZINC SULFATE 220 MG CAPSULE. PO SCH (08:13)
[2021-07-12] MEDS: QUEtiapine 50 MG TABLET. PO SCH (08:13)
[2021-07-12] MEDS: LISINOPRIL 5 MG TABLET. PO SCH (08:13)
[2021-07-12] MEDS: clonazePAM 0.5 MG TABLET PO SCH ×2 (08:13→20:25)
[2021-07-12] MEDS: lamoTRIgine 100 MG TABLET. PO SCH ×2 (08:14→20:25)
[2021-07-12] MEDS: CHOLECALCIFEROL (VITAMIN D3) 1,000 UNIT TABLET PO SCH (08:14)
[2021-07-12] MEDS: CITALOPRAM 20 MG TABLET. PO SCH (08:14)
[2021-07-12] MEDS: ASCORBIC ACID 1,000 MG TABLET PO SCH (08:14)
[2021-07-12] MEDS: ASPIRIN CHEWABLE 81 MG TABLET. PO SCH (08:15)
[2021-07-12] MEDS: CARBIDOPA/LEVODOPA 25/100MG TABLET PO SCH ×2 (08:15→17:48)
[2021-07-12] MEDS: FOLIC ACID 1 MG TABLET PO SCH (08:15)
[2021-07-12] MEDS: FAMOTIDINE 20 MG TABLET PO SCH ×2 (08:15→20:25)
[2021-07-12] MEDS: busPIRone 10 MG TABLET. PO SCH ×3 (08:15→20:26)
[2021-07-12] MEDS: metFORMIN 500 MG TABLET PO SCH (08:15)
[2021-07-12] MEDS: QUEtiapine 100 MG TABLET. PO SCH ×2 (13:31→20:25)
[2021-07-12 15:30] VITALS: BP 106/73
[2021-07-12] MEDS: ACETAMINOPHEN 325 MG TABLET PO PRN (17:46)
[2021-07-12] MEDS: ATORVASTATIN CALCIUM 20 MG TABLET PO SCH (20:25)
--- NOTE | 2021-07-12 21:29 | PDOC ---
Exam Note: Kal Note: Please also refer to the separate dictated note~for this date of service dictated separately.~Patient seen individually. Discussed the patient with Nursing staff reviewed the chart.~Reviewed interim history and current functioning. Reviewed vital signs,~Labs/ Radiology~and current medications noted below. Continue current treatment with the changes noted in the dictated addendum note Assessment: Vital Signs/I&O: Vital Signs Date Time Temp Pulse Resp B/P (MAP) Pulse Ox O2 Delivery O2 Flow Rate FiO2 07/12/21 15:30 98.3 91 16 106/73 (84) 96 07/12/21 06:02 Room Air I & O 07/11/21 07/11/21 07/12/21 15:00 23:00 07:00 Intake Total 720 ml 840 ml Balance 720 ml 840 ml Labs: Laboratory Tests Test 07/12/21 07:31 Glucose (Fingerstick) 115 mg/dL (70-99) H Current Medications: Meds: Laboratory Tests Test 07/12/21 07:31 Glucose (Fingerstick) 115 mg/dL Current Medications Medications (Trade) Dose Ordered Sig/Kaley Route PRN Reason Start Time Stop Time Status Last Admin Dose Admin Ascorbic Acid (Vitamin C) 1,000 mg DAILY PO 06/16/21 09:00 07/12/21 08:14 Aspirin (Aspirin Chewable) 81 mg DAILY PO 06/16/21 09:00 07/12/21 08:15 Atorvastatin Calcium (Lipitor) 20 mg QHS PO 06/15/21 21:00 07/12/21 20:25 Buspirone HCl (Buspar) 20 mg TID PO 06/15/21 21:00 07/12/21 20:26 Carbidopa/Levodopa (Sinemet 25/100) 1 tab BID94 PO 06/16/21 09:00 07/12/21 17:48 Clonazepam (KlonoPIN) 0.5 mg BID PO 06/15/21 21:00 07/12/21 20:25 Famotidine (Pepcid) 20 mg BID PO 06/15/21 21:00 07/12/21 20:25 Folic Acid (Folic Acid) 1 mg DAILY PO 06/16/21 09:00 07/12/21 08:15 Metformin HCl (Glucophage) 1,000 mg DAILYWBKFT PO 06/16/21 08:00 07/12/21 08:15 Quetiapine Fumarate (SEROquel) 50 mg DAILY PO 06/16/21 09:00 07/12/21 07:40 DC 07/11/21 15:00 Quetiapine Fumarate (SEROquel) 100 mg DAILY@1400 PO 06/16/21 14:00 07/12/21 13:31 Citalopram Hydrobromide (CeleXA) 40 mg DAILY PO 06/16/21 09:00 07/12/21 08:14 Guaifenesin (Mucinex Er) 1,200 mg BID PO 06/15/21 21:00 06/17/21 15:45 DC 06/17/21 08:01 Lamotrigine (LaMICtal) 200 mg BID PO 06/15/21 21:00 07/12/21 20:25 Lisinopril (Prinivil) 2.5 mg DAILY PO 06/16/21 09:00 07/12/21 08:13 Quetiapine Fumarate (SEROquel) 300 mg HS PO 06/15/21 21:00 07/12/21 20:25 Zinc Sulfate (Orazinc) 220 mg DAILY PO 06/16/21 09:00 07/12/21 08:13 Acetaminophen (Tylenol) 650 mg PRN Q6HRS PRN PO MILD PAIN / TEMP > 100.3'F 06/15/21 20:00 07/12/21 17:46 Al Hydroxide/Mg Hydroxide (Mylanta Plus Xs) 30 ml PRN AFTMEALHC PRN PO DYSPEPSIA 06/15/21 20:00 Magnesium Hydroxide (Milk Of Magnesia) 2,400 mg PRN QHS PRN PO CONSTIPATION 06/15/21 20:00 Multi-Ingredient Ointment (Analgesic [place]) 1 erum PRN QID PRN TP MUSCLE PAIN 06/15/21 20:00 Vitamin D (Vitamin D3) 1,000 unit DAILY PO 07/04/21 09:00 07/12/21 08:14 Quetiapine Fumarate (SEROquel) 50 mg DAILY PO 07/12/21 09:00 07/12/21 08:13 Current Medications Medications (Trade) Dose Ordered Sig/Kaley Route PRN Reason Start Time Stop Time Status Last Admin Dose Admin Quetiapine Fumarate (SEROquel) 50 mg DAILY PO 07/12/21 09:00 07/12/21 08:13 I have reviewed the current psychotropics carefully including drug interactions. Risk benefit ratio favors no change other than as noted in my dictated progress note. Diagnosis: Problems: (1) Psychotic disorder (2) Anxiety disorder (3) Major depressive disorder, recurrent episode (4) Impulse control disorder LUTHER WARNER MD Jul 12, 2021 21:28
--- NOTE | 2021-07-12 22:21 | HP ---
DATE OF SERVICE: 07/12/2021 ADMIT DATE: 06/15/2021 Update on the psychiatric evaluation/history and physical. This note is being dictated on 07/12/2021 at the request of Dr. Lynn. community services coordinator is an updated document that may be sent to the nursing homes and seeking placement for the patient. The one clarification sought for this documentation is whether the patient has a diagnosis of Lewy body dementia in addition to his major depressive disorder with psychotic features. In fact, after a careful evaluation, observation and assessment in the hospital, the patient's primary diagnosis seems to be major depressive disorder with psychotic features. He does have mild cognitive impairment and as noted does have Parkinson's disease, but at this stage, does not have a diagnosis of Lewy body dementia. IDENTIFYING DATA: The patient is a 61-year-old male admitted initially to us from nursing facility on account of psychotic symptoms, suicidal ideation, and prior psychiatric hospitalizations for this, which he had failed. The patient has had an extensively prolonged stay during this hospitalization due to COVID-19 exposure on the unit and quarantine that was initiated consequent to this, for which the patient had been transitioned to the correction unit as well and then returned back to us. CHIEF COMPLAINT: "I am doing better. I have no hallucinations. No suicidal ideation." HISTORY OF PRESENT ILLNESS: The patient has a history of progressive symptoms of depression, psychosis, suicidal ideation and some mood swings. He has had some mild cognitive impairment. No current psychotic symptoms, suicidal or homicidal ideation. PAST PSYCHIATRIC HISTORY: As above. PAST MEDICAL HISTORY: Parkinson's disease, diabetes mellitus, hypertension, GERD. CODE STATUS: DNR. Accu-Cheks daily. DIET: Regular. Takes medications whole. Ambulates with walker. CURRENT PSYCHOTROPICS: BuSpar 20 mg t.i.d., Klonopin 0.5 mg b.i.d., Lamictal 200 mg b.i.d., Seroquel 300 mg at bedtime and 50 mg daily and 100 mg at 1400, Celexa 40 mg a day. FAMILY HISTORY: Not contributory. SOCIAL HISTORY: No alcohol or drug abuse history. REVIEW OF SYSTEMS: Ambulation impaired with walker. No CV, , pulmonary, eye, ENT system symptoms on review. MENTAL STATUS EXAM: The patient is awake, alert, oriented. Speech has some latency, coherent. Abstraction fair. Computation impaired. Language function intact. Attention span fair. Mood and affect is improved. No psychotic symptoms or suicidal ideation. LABORATORY DATA: Reviewed. IMPRESSION: Major depressive disorder with history of psychotic features; anxiety disorder, unspecified; mild cognitive impairment. Rest unchanged from above, including Parkinson's disease, diabetes mellitus, hypertension, gastroesophageal reflux disease. PLAN: Continue inpatient hospitalization. Maintain current psychotropics. Social service staff is actively finding [place] [facility] placement and the patient has been refused by many facilities. We will transition to a lower level of care when placement is finalized. SYLVIA DR: Axel TID: [id number]
[2021-07-13 06:15] VITALS: BP 107/70
--- NOTE | 2021-07-13 07:17 | PDOC ---
Exam Note: Kal Note: This note is a late entry for 07/11/2021 covers elements not covered in my initial note. Subjective: The patient was seen individually on 07/11/2021, discussed and reviewed the chart with Bre BALLARD. He slept 7-3/4 hours previous night. I met with him in his room. As before similar to on Sunday, he was seated in his room but does not have a roommate today on the 07/11. He was watching history channel on the [place] and was able to recall to me what he had watched and seemed accurate. Review of Systems: No CV, , pulmonary, eye, ENT system symptoms on review. Mental Status Exam: The patient is reasonably oriented. Speech coherent. Abstraction fair. Computation impaired. Language function intact. No psychotic symptoms, suicidal or homicidal ideation. Laboratory Data: Reviewed. Impression: Major depressive disorder, recurrent, rule out psychotic features. Anxiety disorder unspecified. Plan: No change from initial note. Initially at the time of admission there was a suggestion that the patient may have early Lewy body dementia. On further review of his history, symptoms and current stability, it appears the psychosis was a part of his mood disorder, major depressive disorder with psychotic features. He does not seem to show evidence of Lewy body dementia at this stage but certainly this can be assessed on an ongoing basis over the next several years for anything that might change. Assessment: Vital Signs/I&O: Vital Signs Date Time Temp Pulse Resp B/P (MAP) Pulse Ox O2 Delivery O2 Flow Rate FiO2 07/13/21 06:15 98.1 76 16 107/70 (82) 96 07/12/21 06:02 Room Air I & O 07/12/21 07/12/21 07/13/21 15:00 23:00 07:00 Intake Total 960 ml 720 ml Balance 960 ml 720 ml Labs: Laboratory Tests Test 07/12/21 07:31 Glucose (Fingerstick) 115 mg/dL (70-99) H Current Medications: Meds: Current Medications Medications (Trade) Dose Ordered Sig/Kaley Route PRN Reason Start Time Stop Time Status Last Admin Dose Admin Quetiapine Fumarate (SEROquel) 50 mg DAILY PO 07/12/21 09:00 07/12/21 08:13 I have reviewed the current psychotropics carefully including drug interactions. Risk benefit ratio favors no change other than as noted in my dictated progress note. Diagnosis: Problems: (1) Psychotic disorder (2) Anxiety disorder (3) Major depressive disorder, recurrent episode (4) Impulse control disorder LUTHER WARNER MD Jul 13, 2021 07:17
--- NOTE | 2021-07-13 07:33 | PDOC ---
Exam Note: Kal Note: This note is a late entry for 07/12/2021 covers elements not covered in my initial note. Subjective: The patient was seen individually on 07/12/2021, discussed and reviewed the chart with Trace BALLARD. He slept 7 hours previous night. I met with him in the dining room. He is ambulating with the walker. I have also dictated an updated psychiatric evaluation history via Dic# [id number] Review of Systems: No CV, , pulmonary, eye, ENT system symptoms on review. Mental Status Exam: The patient is awake, alert and oriented. Speech coherent. Abstraction fair. Computation reasonable. Language function intact. Mood and affect improved. No psychotic symptoms, suicidal or homicidal ideation. Laboratory Data: Reviewed. Impression: Major depressive disorder, recurrent, rule out psychotic features. Anxiety disorder unspecified. Plan: No change from initial note. Assessment: Vital Signs/I&O: Vital Signs Date Time Temp Pulse Resp B/P (MAP) Pulse Ox O2 Delivery O2 Flow Rate FiO2 07/13/21 06:15 98.1 76 16 107/70 (82) 96 07/12/21 06:02 Room Air I & O 07/12/21 07/12/21 07/13/21 14:59 22:59 06:59 Intake Total 960 ml 720 ml Balance 960 ml 720 ml Current Medications: Meds: Current Medications Medications (Trade) Dose Ordered Sig/Kaley Route PRN Reason Start Time Stop Time Status Last Admin Dose Admin Quetiapine Fumarate (SEROquel) 50 mg DAILY PO 07/12/21 09:00 07/12/21 08:13 I have reviewed the current psychotropics carefully including drug interactions. Risk benefit ratio favors no change other than as noted in my dictated progress note. Diagnosis: Problems: (1) Psychotic disorder (2) Anxiety disorder (3) Major depressive disorder, recurrent episode (4) Impulse control disorder LUTHER WARNER MD Jul 13, 2021 07:33
[2021-07-13] MEDS: ASCORBIC ACID 1,000 MG TABLET PO SCH (08:36)
[2021-07-13] MEDS: CARBIDOPA/LEVODOPA 25/100MG TABLET PO SCH ×2 (08:36→15:08)
[2021-07-13] MEDS: clonazePAM 0.5 MG TABLET PO SCH ×2 (08:36→20:34)
[2021-07-13] MEDS: FAMOTIDINE 20 MG TABLET PO SCH ×2 (08:36→20:33)
[2021-07-13] MEDS: CHOLECALCIFEROL (VITAMIN D3) 1,000 UNIT TABLET PO SCH (08:36)
[2021-07-13] MEDS: metFORMIN 500 MG TABLET PO SCH (08:37)
[2021-07-13] MEDS: ASPIRIN CHEWABLE 81 MG TABLET. PO SCH (08:37)
[2021-07-13] MEDS: busPIRone 10 MG TABLET. PO SCH ×3 (08:37→20:34)
[2021-07-13] MEDS: LISINOPRIL 5 MG TABLET. PO SCH (08:37)
[2021-07-13] MEDS: QUEtiapine 50 MG TABLET. PO SCH (08:37)
[2021-07-13] MEDS: ZINC SULFATE 220 MG CAPSULE. PO SCH (08:37)
[2021-07-13] MEDS: lamoTRIgine 100 MG TABLET. PO SCH ×2 (08:37→20:35)
[2021-07-13] MEDS: CITALOPRAM 20 MG TABLET. PO SCH (08:37)
[2021-07-13] MEDS: FOLIC ACID 1 MG TABLET PO SCH (08:37)
[2021-07-13] MEDS: QUEtiapine 100 MG TABLET. PO SCH ×2 (14:00→20:33)
[2021-07-13 16:20] VITALS: BP 105/71
[2021-07-13] MEDS: ACETAMINOPHEN 325 MG TABLET PO PRN (18:20)
[2021-07-13] MEDS: ATORVASTATIN CALCIUM 20 MG TABLET PO SCH (20:34)
--- NOTE | 2021-07-13 21:37 | PDOC ---
Exam Note: Kal Note: Please also refer to the separate dictated note~for this date of service dictated separately.~Patient seen individually. Discussed the patient with Nursing staff reviewed the chart.~Reviewed interim history and current functioning. Reviewed vital signs,~Labs/ Radiology~and current medications noted below. Continue current treatment with the changes noted in the dictated addendum note Assessment: Vital Signs/I&O: Vital Signs Date Time Temp Pulse Resp B/P (MAP) Pulse Ox O2 Delivery O2 Flow Rate FiO2 07/13/21 16:20 98.0 90 16 105/71 (82) 95 Room Air I & O 07/12/21 07/12/21 07/13/21 15:00 23:00 07:00 Intake Total 960 ml 720 ml Balance 960 ml 720 ml Labs: Laboratory Tests Test 07/13/21 07:39 Glucose (Fingerstick) 110 mg/dL (70-99) H Current Medications: Meds: Laboratory Tests Test 07/13/21 07:39 Glucose (Fingerstick) 110 mg/dL Current Medications Medications (Trade) Dose Ordered Sig/Kaley Route PRN Reason Start Time Stop Time Status Last Admin Dose Admin Ascorbic Acid (Vitamin C) 1,000 mg DAILY PO 06/16/21 09:00 07/13/21 08:36 Aspirin (Aspirin Chewable) 81 mg DAILY PO 06/16/21 09:00 07/13/21 08:37 Atorvastatin Calcium (Lipitor) 20 mg QHS PO 06/15/21 21:00 07/13/21 20:34 Buspirone HCl (Buspar) 20 mg TID PO 06/15/21 21:00 07/13/21 20:34 Carbidopa/Levodopa (Sinemet 25/100) 1 tab BID94 PO 06/16/21 09:00 07/13/21 15:08 Clonazepam (KlonoPIN) 0.5 mg BID PO 06/15/21 21:00 07/13/21 20:34 Famotidine (Pepcid) 20 mg BID PO 06/15/21 21:00 07/13/21 20:33 Folic Acid (Folic Acid) 1 mg DAILY PO 06/16/21 09:00 07/13/21 08:37 Metformin HCl (Glucophage) 1,000 mg DAILYWBKFT PO 06/16/21 08:00 07/13/21 08:37 Quetiapine Fumarate (SEROquel) 50 mg DAILY PO 06/16/21 09:00 07/12/21 07:40 DC 07/11/21 15:00 Quetiapine Fumarate (SEROquel) 100 mg DAILY@1400 PO 06/16/21 14:00 07/13/21 14:00 Citalopram Hydrobromide (CeleXA) 40 mg DAILY PO 06/16/21 09:00 07/13/21 08:37 Guaifenesin (Mucinex Er) 1,200 mg BID PO 06/15/21 21:00 06/17/21 15:45 DC 06/17/21 08:01 Lamotrigine (LaMICtal) 200 mg BID PO 06/15/21 21:00 07/13/21 20:35 Lisinopril (Prinivil) 2.5 mg DAILY PO 06/16/21 09:00 07/13/21 08:37 Quetiapine Fumarate (SEROquel) 300 mg HS PO 06/15/21 21:00 07/13/21 20:33 Zinc Sulfate (Orazinc) 220 mg DAILY PO 06/16/21 09:00 07/13/21 08:37 Acetaminophen (Tylenol) 650 mg PRN Q6HRS PRN PO MILD PAIN / TEMP > 100.3'F 06/15/21 20:00 07/13/21 18:20 Al Hydroxide/Mg Hydroxide (Mylanta Plus Xs) 30 ml PRN AFTMEALHC PRN PO DYSPEPSIA 06/15/21 20:00 Magnesium Hydroxide (Milk Of Magnesia) 2,400 mg PRN QHS PRN PO CONSTIPATION 06/15/21 20:00 Multi-Ingredient Ointment (Analgesic [place]) 1 erum PRN QID PRN TP MUSCLE PAIN 06/15/21 20:00 Vitamin D (Vitamin D3) 1,000 unit DAILY PO 07/04/21 09:00 07/13/21 08:36 Quetiapine Fumarate (SEROquel) 50 mg DAILY PO 07/12/21 09:00 07/13/21 08:37 I have reviewed the current psychotropics carefully including drug interactions. Risk benefit ratio favors no change other than as noted in my dictated progress note. Diagnosis: Problems: (1) Psychotic disorder (2) Anxiety disorder (3) Major depressive disorder, recurrent episode (4) Impulse control disorder LUTHER WARNER MD Jul 13, 2021 21:37
[2021-07-14 06:15] VITALS: BP 94/51
[2021-07-14] MEDS: ASPIRIN CHEWABLE 81 MG TABLET. PO SCH (08:41)
[2021-07-14] MEDS: busPIRone 10 MG TABLET. PO SCH ×3 (08:41→20:58)
[2021-07-14] MEDS: lamoTRIgine 100 MG TABLET. PO SCH ×2 (08:41→20:58)
[2021-07-14] MEDS: metFORMIN 500 MG TABLET PO SCH (08:41)
[2021-07-14] MEDS: LISINOPRIL 5 MG TABLET. PO SCH (08:42)
[2021-07-14] MEDS: CHOLECALCIFEROL (VITAMIN D3) 1,000 UNIT TABLET PO SCH (08:42)
[2021-07-14] MEDS: QUEtiapine 50 MG TABLET. PO SCH (08:42)
[2021-07-14] MEDS: FOLIC ACID 1 MG TABLET PO SCH (08:42)
[2021-07-14] MEDS: FAMOTIDINE 20 MG TABLET PO SCH ×2 (08:42→20:58)
[2021-07-14] MEDS: CARBIDOPA/LEVODOPA 25/100MG TABLET PO SCH ×2 (08:42→17:35)
[2021-07-14] MEDS: ZINC SULFATE 220 MG CAPSULE. PO SCH (08:43)
[2021-07-14] MEDS: ASCORBIC ACID 1,000 MG TABLET PO SCH (08:43)
[2021-07-14] MEDS: clonazePAM 0.5 MG TABLET PO SCH ×2 (08:43→20:58)
[2021-07-14] MEDS: CITALOPRAM 20 MG TABLET. PO SCH (08:43)
[2021-07-14] MEDS: QUEtiapine 100 MG TABLET. PO SCH ×2 (14:07→20:58)
[2021-07-14 15:34] VITALS: BP 114/79
[2021-07-14] MEDS: ACETAMINOPHEN 325 MG TABLET PO PRN (17:35)
[2021-07-14] MEDS: ATORVASTATIN CALCIUM 20 MG TABLET PO SCH (20:58)
--- NOTE | 2021-07-14 21:38 | PDOC ---
Exam Note: Kal Note: Please also refer to the separate dictated note~for this date of service dictated separately.~Patient seen individually. Discussed the patient with Nursing staff reviewed the chart.~Reviewed interim history and current functioning. Reviewed vital signs,~Labs/ Radiology~and current medications noted below. Continue current treatment with the changes noted in the dictated addendum note Assessment: Vital Signs/I&O: Vital Signs Date Time Temp Pulse Resp B/P (MAP) Pulse Ox O2 Delivery O2 Flow Rate FiO2 07/14/21 15:34 98.4 88 20 114/79 (91) 95 07/13/21 16:20 Room Air I & O 07/13/21 07/13/21 07/14/21 15:00 23:00 07:00 Intake Total 1200 ml 720 ml Balance 1200 ml 720 ml Labs: Laboratory Tests Test 07/14/21 07:57 Glucose (Fingerstick) 102 mg/dL (70-99) H Current Medications: Meds: Laboratory Tests Test 07/14/21 07:57 Glucose (Fingerstick) 102 mg/dL Current Medications Medications (Trade) Dose Ordered Sig/Kaley Route PRN Reason Start Time Stop Time Status Last Admin Dose Admin Ascorbic Acid (Vitamin C) 1,000 mg DAILY PO 06/16/21 09:00 07/14/21 08:43 Aspirin (Aspirin Chewable) 81 mg DAILY PO 06/16/21 09:00 07/14/21 08:41 Atorvastatin Calcium (Lipitor) 20 mg QHS PO 06/15/21 21:00 07/14/21 20:58 Buspirone HCl (Buspar) 20 mg TID PO 06/15/21 21:00 07/14/21 20:58 Carbidopa/Levodopa (Sinemet 25/100) 1 tab BID94 PO 06/16/21 09:00 07/14/21 17:35 Clonazepam (KlonoPIN) 0.5 mg BID PO 06/15/21 21:00 07/14/21 20:58 Famotidine (Pepcid) 20 mg BID PO 06/15/21 21:00 07/14/21 20:58 Folic Acid (Folic Acid) 1 mg DAILY PO 06/16/21 09:00 07/14/21 08:42 Metformin HCl (Glucophage) 1,000 mg DAILYWBKFT PO 06/16/21 08:00 07/14/21 08:41 Quetiapine Fumarate (SEROquel) 50 mg DAILY PO 06/16/21 09:00 07/12/21 07:40 DC 07/11/21 15:00 Quetiapine Fumarate (SEROquel) 100 mg DAILY@1400 PO 06/16/21 14:00 07/14/21 14:07 Citalopram Hydrobromide (CeleXA) 40 mg DAILY PO 06/16/21 09:00 07/14/21 08:43 Guaifenesin (Mucinex Er) 1,200 mg BID PO 06/15/21 21:00 06/17/21 15:45 DC 06/17/21 08:01 Lamotrigine (LaMICtal) 200 mg BID PO 06/15/21 21:00 07/14/21 20:58 Lisinopril (Prinivil) 2.5 mg DAILY PO 06/16/21 09:00 07/13/21 08:37 Quetiapine Fumarate (SEROquel) 300 mg HS PO 06/15/21 21:00 07/14/21 20:58 Zinc Sulfate (Orazinc) 220 mg DAILY PO 06/16/21 09:00 07/14/21 08:43 Acetaminophen (Tylenol) 650 mg PRN Q6HRS PRN PO MILD PAIN / TEMP > 100.3'F 06/15/21 20:00 07/14/21 17:35 Al Hydroxide/Mg Hydroxide (Mylanta Plus Xs) 30 ml PRN AFTMEALHC PRN PO DYSPEPSIA 06/15/21 20:00 Magnesium Hydroxide (Milk Of Magnesia) 2,400 mg PRN QHS PRN PO CONSTIPATION 06/15/21 20:00 Multi-Ingredient Ointment (Analgesic [place]) 1 erum PRN QID PRN TP MUSCLE PAIN 06/15/21 20:00 Vitamin D (Vitamin D3) 1,000 unit DAILY PO 07/04/21 09:00 07/14/21 08:42 Quetiapine Fumarate (SEROquel) 50 mg DAILY PO 07/12/21 09:00 07/14/21 08:42 I have reviewed the current psychotropics carefully including drug interactions. Risk benefit ratio favors no change other than as noted in my dictated progress note. Diagnosis: Problems: (1) Psychotic disorder (2) Anxiety disorder (3) Major depressive disorder, recurrent episode (4) Impulse control disorder LUTHER WARNER MD Jul 14, 2021 21:37
[2021-07-15 06:33] VITALS: BP 116/76
[2021-07-15] MEDS: ZINC SULFATE 220 MG CAPSULE. PO SCH (09:00)
[2021-07-15] MEDS: FOLIC ACID 1 MG TABLET PO SCH (09:07)
[2021-07-15] MEDS: CARBIDOPA/LEVODOPA 25/100MG TABLET PO SCH ×2 (09:08→16:06)
[2021-07-15] MEDS: QUEtiapine 50 MG TABLET. PO SCH (09:08)
[2021-07-15] MEDS: lamoTRIgine 100 MG TABLET. PO SCH ×2 (09:08→20:17)
[2021-07-15] MEDS: CHOLECALCIFEROL (VITAMIN D3) 1,000 UNIT TABLET PO SCH (09:08)
[2021-07-15] MEDS: clonazePAM 0.5 MG TABLET PO SCH ×2 (09:08→20:16)
[2021-07-15] MEDS: metFORMIN 500 MG TABLET PO SCH (09:08)
[2021-07-15] MEDS: CITALOPRAM 20 MG TABLET. PO SCH (09:08)
[2021-07-15] MEDS: ASPIRIN CHEWABLE 81 MG TABLET. PO SCH (09:09)
[2021-07-15] MEDS: ASCORBIC ACID 1,000 MG TABLET PO SCH (09:09)
[2021-07-15] MEDS: busPIRone 10 MG TABLET. PO SCH ×3 (09:09→20:16)
[2021-07-15] MEDS: FAMOTIDINE 20 MG TABLET PO SCH ×2 (09:09→20:16)
[2021-07-15] MEDS: LISINOPRIL 5 MG TABLET. PO SCH (09:11)
[2021-07-15] MEDS: QUEtiapine 100 MG TABLET. PO SCH ×2 (13:28→20:17)
[2021-07-15 15:35] VITALS: BP 102/67
[2021-07-15] MEDS: ATORVASTATIN CALCIUM 20 MG TABLET PO SCH (20:17)
--- NOTE | 2021-07-15 21:24 | PDOC ---
Exam Note: Kal Note: This note is a late entry for 07/13/2021 covers elements not covered in my initial note. Subjective: The patient was seen individually on 07/13/2021, discussed and reviewed the chart with Bre BALLARD. He slept 8-1/2 hours previous night. Overall per nursing report, the patient is doing reasonably well. He spends much time in his room, watching the history channel on [employer] and when I questioned him on this today, he is quite informed about what he was watching. Review of Systems: No CV, , pulmonary, eye, ENT system symptoms on review. Mental Status Exam: The patient is reasonably oriented. He is pleasant, smiling, interactive. Speech coherent. Abstraction fair. Computation re asonable. Language function intact. Mood and affect improved. No psychotic symptoms, suicidal or homicidal ideation. Laboratory Data: Reviewed. Impression: Major depressive disorder, recurrent, rule out psychotic features. Anxiety disorder unspecified. Plan: No change from initial note. I have re-dictated my history and psychiatric evaluation on the patient as requested by social service staff to facilitate [facility] placement which so far has been an ample task. Social service staff is working diligently on this. Assessment: Vital Signs/I&O: Vital Signs Date Time Temp Pulse Resp B/P (MAP) Pulse Ox O2 Delivery O2 Flow Rate FiO2 07/15/21 15:35 97.6 96 16 102/67 (79) 98 07/13/21 16:20 Room Air I & O 07/14/21 07/14/21 07/15/21 15:00 23:00 07:00 Intake Total 940 ml 480 ml Balance 940 ml 480 ml Labs: Laboratory Tests Test 07/15/21 07:54 Glucose (Fingerstick) 103 mg/dL (70-99) H Current Medications: I have reviewed the current psychotropics carefully including drug interactions. Risk benefit ratio favors no change other than as noted in my dictated progress note. Diagnosis: Problems: (1) Psychotic disorder (2) Anxiety disorder (3) Major depressive disorder, recurrent episode (4) Impulse control disorder LUTHER WARNER MD Jul 15, 2021 21:24
--- NOTE | 2021-07-15 21:37 | PDOC ---
Exam Note: Kal Note: This note is a late entry for 07/14/2021 covers elements not covered in my initial note. Subjective: The patient was reviewed on telehealth rounds at treatment team meeting in the morning on 07/14/2021 with Kailee Hines (social sciences instructor) and Teetee BALLARD, discussed and reviewed the chart. Discussed and reviewed his diagnoses, progress, placement options at length. Sleeping average 7-1/4 hours. Appetite is 100%. I have re-dictated my history and psychiatric evaluation to clarify he does not have a diagnoses of Lewy body dementia at this stage. I met with him in the evening on telehealth rounds. Review of Systems: No CV, , pulmonary, eye, ENT system symptoms on review. Mental Status Exam: The patient is reasonably oriented. Speech coherent. Abstraction fair. Computation somewhat impaired. Mood and affect improved, pleasant, smiling. No psychotic symptoms, suicidal or homicidal ideation. No psychotic symptoms. Laboratory Data: Reviewed. Impression: Major depressive disorder, recurrent. Anxiety disorder unspecified. Plan: No change from initial note. Assessment: Vital Signs/I&O: Vital Signs Date Time Temp Pulse Resp B/P (MAP) Pulse Ox O2 Delivery O2 Flow Rate FiO2 07/15/21 15:35 97.6 96 16 102/67 (79) 98 07/13/21 16:20 Room Air I & O 07/14/21 07/14/21 07/15/21 15:00 23:00 07:00 Intake Total 940 ml 480 ml Balance 940 ml 480 ml Labs: Laboratory Tests Test 07/15/21 07:54 Glucose (Fingerstick) 103 mg/dL (70-99) H Current Medications: I have reviewed the current psychotropics carefully including drug interactions. Risk benefit ratio favors no change other than as noted in my dictated progress note. Diagnosis: Problems: (1) Psychotic disorder (2) Anxiety disorder (3) Major depressive disorder, recurrent episode (4) Impulse control disorder (5) Major depressive disorder with psychotic features LUTHER WARNER MD Jul 15, 2021 21:37
--- NOTE | 2021-07-15 21:49 | PDOC ---
Exam Note: Kal Note: Please also refer to the separate dictated note~for this date of service dictated separately.~Patient seen individually. Discussed the patient with Nursing staff reviewed the chart.~Reviewed interim history and current functioning. Reviewed vital signs,~Labs/ Radiology~and current medications noted below. Continue current treatment with the changes noted in the dictated addendum note Assessment: Vital Signs/I&O: Vital Signs Date Time Temp Pulse Resp B/P (MAP) Pulse Ox O2 Delivery O2 Flow Rate FiO2 07/15/21 15:35 97.6 96 16 102/67 (79) 98 07/13/21 16:20 Room Air I & O 07/14/21 07/14/21 07/15/21 15:00 23:00 07:00 Intake Total 940 ml 480 ml Balance 940 ml 480 ml Labs: Laboratory Tests Test 07/15/21 07:54 Glucose (Fingerstick) 103 mg/dL (70-99) H Current Medications: Meds: Laboratory Tests Test 07/15/21 07:54 Glucose (Fingerstick) 103 mg/dL Current Medications Medications (Trade) Dose Ordered Sig/Kaley Route PRN Reason Start Time Stop Time Status Last Admin Dose Admin Ascorbic Acid (Vitamin C) 1,000 mg DAILY PO 06/16/21 09:00 07/15/21 09:09 Aspirin (Aspirin Chewable) 81 mg DAILY PO 06/16/21 09:00 07/15/21 09:09 Atorvastatin Calcium (Lipitor) 20 mg QHS PO 06/15/21 21:00 07/15/21 20:17 Buspirone HCl (Buspar) 20 mg TID PO 06/15/21 21:00 07/15/21 20:16 Carbidopa/Levodopa (Sinemet 25/100) 1 tab [id number] PO 06/16/21 09:00 07/15/21 16:06 Clonazepam (KlonoPIN) 0.5 mg BID PO 06/15/21 21:00 07/15/21 20:16 Famotidine (Pepcid) 20 mg BID PO 06/15/21 21:00 07/15/21 20:16 Folic Acid (Folic Acid) 1 mg DAILY PO 06/16/21 09:00 07/15/21 09:07 Metformin HCl (Glucophage) 1,000 mg DAILYWBKFT PO 06/16/21 08:00 07/15/21 09:08 Quetiapine Fumarate (SEROquel) 50 mg DAILY PO 06/16/21 09:00 07/12/21 07:40 DC 07/11/21 15:00 Quetiapine Fumarate (SEROquel) 100 mg DAILY@1400 PO 06/16/21 14:00 07/15/21 13:28 Citalopram Hydrobromide (CeleXA) 40 mg DAILY PO 06/16/21 09:00 07/15/21 09:08 Guaifenesin (Mucinex Er) 1,200 mg BID PO 06/15/21 21:00 06/17/21 15:45 DC 06/17/21 08:01 Lamotrigine (LaMICtal) 200 mg BID PO 06/15/21 21:00 07/15/21 20:17 Lisinopril (Prinivil) 2.5 mg DAILY PO 06/16/21 09:00 07/15/21 09:11 Quetiapine Fumarate (SEROquel) 300 mg HS PO 06/15/21 21:00 07/15/21 20:17 Zinc Sulfate (Orazinc) 220 mg DAILY PO 06/16/21 09:00 07/15/21 09:00 Acetaminophen (Tylenol) 650 mg PRN Q6HRS PRN PO MILD PAIN / TEMP > 100.3'F 06/15/21 20:00 07/14/21 17:35 Al Hydroxide/Mg Hydroxide (Mylanta Plus Xs) 30 ml PRN AFTMEALHC PRN PO DYSPEPSIA 06/15/21 20:00 Magnesium Hydroxide (Milk Of Magnesia) 2,400 mg PRN QHS PRN PO CONSTIPATION 06/15/21 20:00 Multi-Ingredient Ointment (Analgesic [place]) 1 erum PRN QID PRN TP MUSCLE PAIN 06/15/21 20:00 Vitamin D (Vitamin D3) 1,000 unit DAILY PO 07/04/21 09:00 07/15/21 09:08 Quetiapine Fumarate (SEROquel) 50 mg DAILY PO 07/12/21 09:00 07/15/21 09:08 I have reviewed the current psychotropics carefully including drug interactions. Risk benefit ratio favors no change other than as noted in my dictated progress note. Diagnosis: Problems: (1) Psychotic disorder (2) Major depressive disorder with psychotic features (3) Anxiety disorder (4) Major depressive disorder, recurrent episode (5) Impulse control disorder LUTHER WARNER MD Jul 15, 2021 21:49
[2021-07-16] MEDS: ACETAMINOPHEN 325 MG TABLET PO PRN ×2 (05:48→16:51)
[2021-07-16 05:54] VITALS: BP 119/75
[2021-07-16] MEDS: QUEtiapine 50 MG TABLET. PO SCH (08:17)
[2021-07-16] MEDS: clonazePAM 0.5 MG TABLET PO SCH ×2 (08:17→20:26)
[2021-07-16] MEDS: busPIRone 10 MG TABLET. PO SCH ×3 (08:17→20:27)
[2021-07-16] MEDS: ASPIRIN CHEWABLE 81 MG TABLET. PO SCH (08:17)
[2021-07-16] MEDS: metFORMIN 500 MG TABLET PO SCH (08:18)
[2021-07-16] MEDS: CITALOPRAM 20 MG TABLET. PO SCH (08:18)
[2021-07-16] MEDS: LISINOPRIL 5 MG TABLET. PO SCH (08:18)
[2021-07-16] MEDS: CHOLECALCIFEROL (VITAMIN D3) 1,000 UNIT TABLET PO SCH (08:19)
[2021-07-16] MEDS: CARBIDOPA/LEVODOPA 25/100MG TABLET PO SCH ×2 (08:19→15:22)
[2021-07-16] MEDS: FAMOTIDINE 20 MG TABLET PO SCH ×2 (08:19→20:25)
[2021-07-16] MEDS: lamoTRIgine 100 MG TABLET. PO SCH ×2 (08:19→20:26)
[2021-07-16] MEDS: ASCORBIC ACID 1,000 MG TABLET PO SCH (08:19)
[2021-07-16] MEDS: ZINC SULFATE 220 MG CAPSULE. PO SCH (08:19)
[2021-07-16] MEDS: FOLIC ACID 1 MG TABLET PO SCH (08:19)
[2021-07-16] MEDS: QUEtiapine 100 MG TABLET. PO SCH ×2 (14:23→20:25)
[2021-07-16 15:52] VITALS: BP 128/80
[2021-07-16] MEDS: ATORVASTATIN CALCIUM 20 MG TABLET PO SCH (20:25)
--- NOTE | 2021-07-16 21:28 | PDOC ---
Exam Note: Kal Note: Please also refer to the separate dictated note~for this date of service dictated separately.~Patient seen individually. Discussed the patient with Nursing staff reviewed the chart.~Reviewed interim history and current functioning. Reviewed vital signs,~Labs/ Radiology~and current medications noted below. Continue current treatment with the changes noted in the dictated addendum note Assessment: Vital Signs/I&O: Vital Signs Date Time Temp Pulse Resp B/P (MAP) Pulse Ox O2 Delivery O2 Flow Rate FiO2 07/16/21 15:52 98.2 86 18 128/80 (96) 98 07/16/21 05:54 Room Air I & O 07/15/21 07/15/21 07/16/21 15:00 23:00 07:00 Intake Total 840 ml 480 ml Balance 840 ml 480 ml Labs: Laboratory Tests Test 07/16/21 07:38 Glucose (Fingerstick) 97 mg/dL (70-99) Current Medications: Meds: Laboratory Tests Test 07/16/21 07:38 Glucose (Fingerstick) 97 mg/dL Current Medications Medications (Trade) Dose Ordered Sig/Kaley Route PRN Reason Start Time Stop Time Status Last Admin Dose Admin Ascorbic Acid (Vitamin C) 1,000 mg DAILY PO 06/16/21 09:00 07/16/21 08:19 Aspirin (Aspirin Chewable) 81 mg DAILY PO 06/16/21 09:00 07/16/21 08:17 Atorvastatin Calcium (Lipitor) 20 mg QHS PO 06/15/21 21:00 07/16/21 20:25 Buspirone HCl (Buspar) 20 mg TID PO 06/15/21 21:00 07/16/21 20:27 Carbidopa/Levodopa (Sinemet 25/100) 1 tab [id number] PO 06/16/21 09:00 07/16/21 15:22 Clonazepam (KlonoPIN) 0.5 mg BID PO 06/15/21 21:00 07/16/21 20:26 Famotidine (Pepcid) 20 mg BID PO 06/15/21 21:00 07/16/21 20:25 Folic Acid (Folic Acid) 1 mg DAILY PO 06/16/21 09:00 07/16/21 08:19 Metformin HCl (Glucophage) 1,000 mg DAILYWBKFT PO 06/16/21 08:00 07/16/21 08:18 Quetiapine Fumarate (SEROquel) 50 mg DAILY PO 06/16/21 09:00 07/12/21 07:40 DC 07/11/21 15:00 Quetiapine Fumarate (SEROquel) 100 mg DAILY@1400 PO 06/16/21 14:00 07/16/21 14:23 Citalopram Hydrobromide (CeleXA) 40 mg DAILY PO 06/16/21 09:00 07/16/21 08:18 Guaifenesin (Mucinex Er) 1,200 mg BID PO 06/15/21 21:00 06/17/21 15:45 DC 06/17/21 08:01 Lamotrigine (LaMICtal) 200 mg BID PO 06/15/21 21:00 07/16/21 20:26 Lisinopril (Prinivil) 2.5 mg DAILY PO 06/16/21 09:00 07/16/21 08:18 Quetiapine Fumarate (SEROquel) 300 mg HS PO 06/15/21 21:00 07/16/21 20:25 Zinc Sulfate (Orazinc) 220 mg DAILY PO 06/16/21 09:00 07/16/21 08:19 Acetaminophen (Tylenol) 650 mg PRN Q6HRS PRN PO MILD PAIN / TEMP > 100.3'F 06/15/21 20:00 07/16/21 16:51 Al Hydroxide/Mg Hydroxide (Mylanta Plus Xs) 30 ml PRN AFTMEALHC PRN PO DYSPEPSIA 06/15/21 20:00 Magnesium Hydroxide (Milk Of Magnesia) 2,400 mg PRN QHS PRN PO CONSTIPATION 06/15/21 20:00 Multi-Ingredient Ointment (Analgesic [place]) 1 erum PRN QID PRN TP MUSCLE PAIN 06/15/21 20:00 Vitamin D (Vitamin D3) 1,000 unit DAILY PO 07/04/21 09:00 07/16/21 08:19 Quetiapine Fumarate (SEROquel) 50 mg DAILY PO 07/12/21 09:00 07/16/21 08:17 I have reviewed the current psychotropics carefully including drug interactions. Risk benefit ratio favors no change other than as noted in my dictated progress note. Diagnosis: Problems: (1) Psychotic disorder (2) Major depressive disorder with psychotic features (3) Anxiety disorder (4) Major depressive disorder, recurrent episode (5) Impulse control disorder LUTHER WARNER MD Jul 16, 2021 21:28
[2021-07-17 06:05] VITALS: BP 131/89
[2021-07-17] MEDS: LISINOPRIL 5 MG TABLET. PO SCH (08:27)
[2021-07-17] MEDS: clonazePAM 0.5 MG TABLET PO SCH ×2 (08:28→20:32)
[2021-07-17] MEDS: ASCORBIC ACID 1,000 MG TABLET PO SCH (08:28)
[2021-07-17] MEDS: metFORMIN 500 MG TABLET PO SCH (08:28)
[2021-07-17] MEDS: ASPIRIN CHEWABLE 81 MG TABLET. PO SCH (08:29)
[2021-07-17] MEDS: CHOLECALCIFEROL (VITAMIN D3) 1,000 UNIT TABLET PO SCH (08:29)
[2021-07-17] MEDS: lamoTRIgine 100 MG TABLET. PO SCH ×2 (08:29→20:32)
[2021-07-17] MEDS: CITALOPRAM 20 MG TABLET. PO SCH (08:30)
[2021-07-17] MEDS: busPIRone 10 MG TABLET. PO SCH ×3 (08:30→20:32)
[2021-07-17] MEDS: QUEtiapine 50 MG TABLET. PO SCH (08:31)
[2021-07-17] MEDS: FAMOTIDINE 20 MG TABLET PO SCH ×2 (08:31→20:32)
[2021-07-17] MEDS: ZINC SULFATE 220 MG CAPSULE. PO SCH (08:31)
[2021-07-17] MEDS: CARBIDOPA/LEVODOPA 25/100MG TABLET PO SCH ×2 (08:31→15:16)
[2021-07-17] MEDS: FOLIC ACID 1 MG TABLET PO SCH (08:31)
[2021-07-17] MEDS: QUEtiapine 100 MG TABLET. PO SCH ×2 (14:10→20:32)
[2021-07-17 15:41] VITALS: BP 119/79
[2021-07-17] MEDS: ATORVASTATIN CALCIUM 20 MG TABLET PO SCH (20:32)
[2021-07-17] MEDS: ACETAMINOPHEN 325 MG TABLET PO PRN (20:32)
--- NOTE | 2021-07-17 21:28 | PDOC ---
Exam Note: Kal Note: Please also refer to the separate dictated note~for this date of service dictated separately.~Patient seen individually. Discussed the patient with Nursing staff reviewed the chart.~Reviewed interim history and current functioning. Reviewed vital signs,~Labs/ Radiology~and current medications noted below. Continue current treatment with the changes noted in the dictated addendum note Assessment: Vital Signs/I&O: Vital Signs Date Time Temp Pulse Resp B/P (MAP) Pulse Ox O2 Delivery O2 Flow Rate FiO2 07/17/21 15:41 97.7 87 20 119/79 (92) 99 07/17/21 06:05 Room Air I & O 07/16/21 07/16/21 07/17/21 15:00 23:00 07:00 Intake Total 790 ml 480 ml Balance 790 ml 480 ml Labs: Laboratory Tests Test 07/17/21 08:00 Glucose (Fingerstick) 103 mg/dL (70-99) H Current Medications: Meds: Laboratory Tests Test 07/17/21 08:00 Glucose (Fingerstick) 103 mg/dL Current Medications Medications (Trade) Dose Ordered Sig/Kaley Route PRN Reason Start Time Stop Time Status Last Admin Dose Admin Ascorbic Acid (Vitamin C) 1,000 mg DAILY PO 06/16/21 09:00 07/17/21 08:28 Aspirin (Aspirin Chewable) 81 mg DAILY PO 06/16/21 09:00 07/17/21 08:29 Atorvastatin Calcium (Lipitor) 20 mg QHS PO 06/15/21 21:00 07/17/21 20:32 Buspirone HCl (Buspar) 20 mg TID PO 06/15/21 21:00 07/17/21 20:32 Carbidopa/Levodopa (Sinemet 25/100) 1 tab BID94 PO 06/16/21 09:00 07/17/21 15:16 Clonazepam (KlonoPIN) 0.5 mg BID PO 06/15/21 21:00 07/17/21 20:32 Famotidine (Pepcid) 20 mg BID PO 06/15/21 21:00 07/17/21 20:32 Folic Acid (Folic Acid) 1 mg DAILY PO 06/16/21 09:00 07/17/21 08:31 Metformin HCl (Glucophage) 1,000 mg DAILYWBKFT PO 06/16/21 08:00 07/17/21 08:28 Quetiapine Fumarate (SEROquel) 50 mg DAILY PO 06/16/21 09:00 07/12/21 07:40 DC 07/11/21 15:00 Quetiapine Fumarate (SEROquel) 100 mg DAILY@1400 PO 06/16/21 14:00 07/17/21 14:10 Citalopram Hydrobromide (CeleXA) 40 mg DAILY PO 06/16/21 09:00 07/17/21 08:30 Guaifenesin (Mucinex Er) 1,200 mg BID PO 06/15/21 21:00 06/17/21 15:45 DC 06/17/21 08:01 Lamotrigine (LaMICtal) 200 mg BID PO 06/15/21 21:00 07/17/21 20:32 Lisinopril (Prinivil) 2.5 mg DAILY PO 06/16/21 09:00 07/17/21 08:27 Quetiapine Fumarate (SEROquel) 300 mg HS PO 06/15/21 21:00 07/17/21 20:32 Zinc Sulfate (Orazinc) 220 mg DAILY PO 06/16/21 09:00 07/17/21 08:31 Acetaminophen (Tylenol) 650 mg PRN Q6HRS PRN PO MILD PAIN / TEMP > 100.3'F 06/15/21 20:00 07/17/21 20:32 Al Hydroxide/Mg Hydroxide (Mylanta Plus Xs) 30 ml PRN AFTMEALHC PRN PO DYSPEPSIA 06/15/21 20:00 Magnesium Hydroxide (Milk Of Magnesia) 2,400 mg PRN QHS PRN PO CONSTIPATION 06/15/21 20:00 Multi-Ingredient Ointment (Analgesic [place]) 1 erum PRN QID PRN TP MUSCLE PAIN 06/15/21 20:00 Vitamin D (Vitamin D3) 1,000 unit DAILY PO 07/04/21 09:00 07/17/21 08:29 Quetiapine Fumarate (SEROquel) 50 mg DAILY PO 07/12/21 09:00 07/17/21 08:31 I have reviewed the current psychotropics carefully including drug interactions. Risk benefit ratio favors no change other than as noted in my dictated progress note. Diagnosis: Problems: (1) Psychotic disorder (2) Major depressive disorder with psychotic features (3) Anxiety disorder (4) Major depressive disorder, recurrent episode (5) Impulse control disorder LUTHER WARNER MD Jul 17, 2021 21:28
[2021-07-18 05:55] VITALS: BP 116/72
[2021-07-18] MEDS: ACETAMINOPHEN 325 MG TABLET PO PRN ×3 (06:20→19:28)
[2021-07-18 07:05] LABS: BASO % 0 % (0-3); EOS # 0.2 x10^3/uL (0.0-0.7); EOS % 3 % (0-3); HEMATOCRIT 46.2 % (39.0-53.0); HEMOGLOBIN 15.5 g/dL (13.0-17.5); LYMPH # 2.2 x10^3/uL (1.0-4.8); LYMPH % 37 % (24-48); MEAN CORPUSCULAR HEMOGLOBIN 32 pg (25-35); MEAN CORPUSCULAR HGB CONC 34 g/dL (31-37); MEAN CORPUSCULAR VOLUME 94 fL (79-100); MONO # 0.4 x10^3/uL (0.0-1.1); MONO % 6 % (0-9); NEUT # 3.2 x10^3uL (1.8-7.7); NEUT % 54 % (31-73); PLATELET COUNT 184 x10^3/uL (140-400); RED BLOOD COUNT 4.91 x10^6/uL (4.30-5.70)
[2021-07-18 07:18] LABS: ALBUMIN/GLOBULIN RATIO 1.3 (1.0-1.7); CREATININE 0.8 mg/dL (0.7-1.3); GFR 98.6; POTASSIUM 3.8 mmol/L (3.5-5.1); TOTAL BILIRUBIN 0.7 mg/dL (0.2-1.0); TOTAL PROTEIN 7.1 g/dL (6.4-8.2)
--- NOTE | 2021-07-18 07:23 | PDOC ---
Exam Note: Kal Note: This note is a late entry for 07/15/2021 covers elements not covered in my initial note. Subjective: The patient was seen individually on 07/15/2021, discussed and reviewed the chart with Philip BALLARD. The patient slept 7-1/4 hours previous night. He was again watching YouTube TV about history and seemed quite engrossed in it. Review of Systems: No CV, , pulmonary, eye, ENT system symptoms on review. Mental Status Exam: The patient is reasonably oriented. Speech coherent, slight latency of responses. Abstraction fair. Computation somewhat impaired. Mood and affect improved, pleasant, smiling. No psychotic symptoms or suicidal ideation. Laboratory Data: Reviewed. Impression: Major depressive disorder with psychotic features in partial remission. Anxiety disorder unspecified. Plan: No change from initial note. Assessment: Vital Signs/I&O: Vital Signs Date Time Temp Pulse Resp B/P (MAP) Pulse Ox O2 Delivery O2 Flow Rate FiO2 07/18/21 05:55 97.4 72 16 116/72 (87) 95 07/17/21 06:05 Room Air I & O 07/17/21 07/17/21 07/18/21 15:00 23:00 07:00 Intake Total 720 ml 360 ml 120 ml Balance 720 ml 360 ml 120 ml Labs: Laboratory Tests Test 07/17/21 08:00 07/18/21 06:20 Glucose (Fingerstick) 103 mg/dL (70-99) H White Blood Count 6.0 x10^3/uL (4.0-11.0) Red Blood Count 4.91 x10^6/uL (4.30-5.70) Hemoglobin 15.5 g/dL (13.0-17.5) Hematocrit 46.2 % (39.0-53.0) Mean Corpuscular Volume 94 fL (79-100) Mean Corpuscular Hemoglobin 32 pg (25-35) Mean Corpuscular Hemoglobin Concent 34 g/dL (31-37) Red Cell Distribution Width 14.0 % (11.5-14.5) Platelet Count 184 x10^3/uL (140-400) Neutrophils (%) (Auto) 54 % (31-73) Lymphocytes (%) (Auto) 37 % (24-48) Monocytes (%) (Auto) 6 % (0-9) Eosinophils (%) (Auto) 3 % (0-3) Basophils (%) (Auto) 0 % (0-3) Neutrophils # (Auto) 3.2 x10^3uL (1.8-7.7) Lymphocytes # (Auto) 2.2 x10^3/uL (1.0-4.8) Monocytes # (Auto) 0.4 x10^3/uL (0.0-1.1) Eosinophils # (Auto) 0.2 x10^3/uL (0.0-0.7) Basophils # (Auto) 0.0 x10^3/uL (0.0-0.2) Current Medications: I have reviewed the current psychotropics carefully including drug interactions. Risk benefit ratio favors no change other than as noted in my dictated progress note. Diagnosis: Problems: (1) Psychotic disorder (2) Major depressive disorder with psychotic features (3) Anxiety disorder (4) Major depressive disorder, recurrent episode (5) Impulse control disorder LUTHER WARNER MD Jul 18, 2021 07:23
--- NOTE | 2021-07-18 07:41 | PDOC ---
Exam Note: Kal Note: This note is a late entry for 07/16/2021 covers elements not covered in my initial note. Subjective: The patient was seen individually on 07/16/2021, discussed and reviewed the chart with Justino BALLARD. The patient slept 8-1/2 hours previous night. I met with him in his room. 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 Review of Systems: No CV, , pulmonary, eye, ENT system symptoms on review. Mental Status Exam: The patient is reasonably oriented. Speech coherent, slight latency of responses. Abstraction fair. Computation somewhat impaired. Mood and affect improved, pleasant, smiling. No hallucinations. No suicidal ideation. I specifically and directly questioned him on this. Laboratory Data: Reviewed. Impression: Major depressive disorder with psychotic features in partial remission. He does not seem to meet the criteria for Lewy body dementia at least not at this stage. Anxiety disorder unspecified. Plan: No change from initial note. Assessment: Vital Signs/I&O: Vital Signs Date Time Temp Pulse Resp B/P (MAP) Pulse Ox O2 Delivery O2 Flow Rate FiO2 07/18/21 05:55 97.4 72 16 116/72 (87) 95 07/17/21 06:05 Room Air I & O 07/17/21 07/17/21 07/18/21 15:00 23:00 07:00 Intake Total 720 ml 360 ml 120 ml Balance 720 ml 360 ml 120 ml Labs: Laboratory Tests Test 07/17/21 08:00 07/18/21 06:20 07/18/21 07:29 Glucose (Fingerstick) 103 mg/dL (70-99) H 101 mg/dL (70-99) H White Blood Count 6.0 x10^3/uL (4.0-11.0) Red Blood Count 4.91 x10^6/uL (4.30-5.70) Hemoglobin 15.5 g/dL (13.0-17.5) Hematocrit 46.2 % (39.0-53.0) Mean Corpuscular Volume 94 fL (79-100) Mean Corpuscular Hemoglobin 32 pg (25-35) Mean Corpuscular Hemoglobin Concent 34 g/dL (31-37) Red Cell Distribution Width 14.0 % (11.5-14.5) Platelet Count 184 x10^3/uL (140-400) Neutrophils (%) (Auto) 54 % (31-73) Lymphocytes (%) (Auto) 37 % (24-48) Monocytes (%) (Auto) 6 % (0-9) Eosinophils (%) (Auto) 3 % (0-3) Basophils (%) (Auto) 0 % (0-3) Neutrophils # (Auto) 3.2 x10^3uL (1.8-7.7) Lymphocytes # (Auto) 2.2 x10^3/uL (1.0-4.8) Monocytes # (Auto) 0.4 x10^3/uL (0.0-1.1) Eosinophils # (Auto) 0.2 x10^3/uL (0.0-0.7) Basophils # (Auto) 0.0 x10^3/uL (0.0-0.2) Sodium Level 144 mmol/L (136-145) Potassium Level 3.8 mmol/L (3.5-5.1) Chloride Level 105 mmol/L (98-107) Carbon Dioxide Level 31 mmol/L (21-32) Anion Gap 8 (6-14) Blood Urea Nitrogen 16 mg/dL (8-26) Creatinine 0.8 mg/dL (0.7-1.3) Estimated GFR (Cockcroft-Gault) 98.6 BUN/Creatinine Ratio 20 (6-20) Glucose Level 99 mg/dL (70-99) Calcium Level 9.0 mg/dL (8.5-10.1) Total Bilirubin 0.7 mg/dL (0.2-1.0) Aspartate Amino Transferase (AST) 13 U/L (15-37) L Alanine Aminotransferase (ALT) 32 U/L (16-63) Alkaline Phosphatase 92 U/L (46-116) Total Protein 7.1 g/dL (6.4-8.2) Albumin 4.0 g/dL (3.4-5.0) Albumin/Globulin Ratio 1.3 (1.0-1.7) Current Medications: I have reviewed the current psychotropics carefully including drug interactions. Risk benefit ratio favors no change other than as noted in my dictated progress note. Diagnosis: Problems: (1) Psychotic disorder (2) Major depressive disorder with psychotic features (3) Anxiety disorder (4) Impulse control disorder LUTHER WARNER MD Jul 18, 2021 07:41
--- NOTE | 2021-07-18 07:54 | PDOC ---
Exam Note: Kal Note: This note is a late entry for 07/17/2021 covers elements not covered in my initial note. Subjective: The patient was seen individually on 07/17/2021, discussed and reviewed the chart with Reny BALLARD. The patient slept 8-1/4 hours previous night. I met with him in his room. 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 I addressed this with him. He does complain of headache. Received some Tylenol. Review of Systems: No CV, , pulmonary, eye system symptoms on review. Mental Status Exam: The patient is reasonably oriented. Speech coherent, slight latency of responses. Abstraction fair. Computation somewhat impaired. Mood and affect improved, pleasant, smiling. No psychotic symptoms or suicidal ideation. Laboratory Data: Reviewed. Impression: Major depressive disorder with psychotic features in partial remission. Anxiety disorder unspecified. Plan: No change from initial note. Assessment: Vital Signs/I&O: Vital Signs Date Time Temp Pulse Resp B/P (MAP) Pulse Ox O2 Delivery O2 Flow Rate FiO2 07/18/21 05:55 97.4 72 16 116/72 (87) 95 07/17/21 06:05 Room Air I & O 07/17/21 07/17/21 07/18/21 15:00 23:00 07:00 Intake Total 720 ml 360 ml 120 ml Balance 720 ml 360 ml 120 ml Labs: Laboratory Tests Test 07/17/21 08:00 07/18/21 06:20 07/18/21 07:29 Glucose (Fingerstick) 103 mg/dL (70-99) H 101 mg/dL (70-99) H White Blood Count 6.0 x10^3/uL (4.0-11.0) Red Blood Count 4.91 x10^6/uL (4.30-5.70) Hemoglobin 15.5 g/dL (13.0-17.5) Hematocrit 46.2 % (39.0-53.0) Mean Corpuscular Volume 94 fL (79-100) Mean Corpuscular Hemoglobin 32 pg (25-35) Mean Corpuscular Hemoglobin Concent 34 g/dL (31-37) Red Cell Distribution Width 14.0 % (11.5-14.5) Platelet Count 184 x10^3/uL (140-400) Neutrophils (%) (Auto) 54 % (31-73) Lymphocytes (%) (Auto) 37 % (24-48) Monocytes (%) (Auto) 6 % (0-9) Eosinophils (%) (Auto) 3 % (0-3) Basophils (%) (Auto) 0 % (0-3) Neutrophils # (Auto) 3.2 x10^3uL (1.8-7.7) Lymphocytes # (Auto) 2.2 x10^3/uL (1.0-4.8) Monocytes # (Auto) 0.4 x10^3/uL (0.0-1.1) Eosinophils # (Auto) 0.2 x10^3/uL (0.0-0.7) Basophils # (Auto) 0.0 x10^3/uL (0.0-0.2) Sodium Level 144 mmol/L (136-145) Potassium Level 3.8 mmol/L (3.5-5.1) Chloride Level 105 mmol/L (98-107) Carbon Dioxide Level 31 mmol/L (21-32) Anion Gap 8 (6-14) Blood Urea Nitrogen 16 mg/dL (8-26) Creatinine 0.8 mg/dL (0.7-1.3) Estimated GFR (Cockcroft-Gault) 98.6 BUN/Creatinine Ratio 20 (6-20) Glucose Level 99 mg/dL (70-99) Calcium Level 9.0 mg/dL (8.5-10.1) Total Bilirubin 0.7 mg/dL (0.2-1.0) Aspartate Amino Transferase (AST) 13 U/L (15-37) L Alanine Aminotransferase (ALT) 32 U/L (16-63) Alkaline Phosphatase 92 U/L (46-116) Total Protein 7.1 g/dL (6.4-8.2) Albumin 4.0 g/dL (3.4-5.0) Albumin/Globulin Ratio 1.3 (1.0-1.7) Current Medications: I have reviewed the current psychotropics carefully including drug interactions. Risk benefit ratio favors no change other than as noted in my dictated progress note. Diagnosis: Problems: (1) Psychotic disorder (2) Major depressive disorder with psychotic features (3) Anxiety disorder (4) Major depressive disorder, recurrent episode (5) Impulse control disorder LUTHER WARNER MD Jul 18, 2021 07:54
[2021-07-18] MEDS: FAMOTIDINE 20 MG TABLET PO SCH ×2 (08:11→21:09)
[2021-07-18] MEDS: busPIRone 10 MG TABLET. PO SCH ×3 (08:11→21:09)
[2021-07-18] MEDS: metFORMIN 500 MG TABLET PO SCH (08:11)
[2021-07-18] MEDS: CARBIDOPA/LEVODOPA 25/100MG TABLET PO SCH ×2 (08:11→17:19)
[2021-07-18] MEDS: ASPIRIN CHEWABLE 81 MG TABLET. PO SCH (08:12)
[2021-07-18] MEDS: clonazePAM 0.5 MG TABLET PO SCH ×2 (08:12→21:09)
[2021-07-18] MEDS: LISINOPRIL 5 MG TABLET. PO SCH (08:12)
[2021-07-18] MEDS: CITALOPRAM 20 MG TABLET. PO SCH (08:12)
[2021-07-18] MEDS: QUEtiapine 50 MG TABLET. PO SCH (08:12)
[2021-07-18] MEDS: lamoTRIgine 100 MG TABLET. PO SCH ×2 (08:12→21:09)
[2021-07-18] MEDS: ASCORBIC ACID 1,000 MG TABLET PO SCH (08:12)
[2021-07-18] MEDS: CHOLECALCIFEROL (VITAMIN D3) 1,000 UNIT TABLET PO SCH (08:12)
[2021-07-18] MEDS: FOLIC ACID 1 MG TABLET PO SCH (08:13)
[2021-07-18] MEDS: ZINC SULFATE 220 MG CAPSULE. PO SCH (08:13)
[2021-07-18] MEDS: QUEtiapine 100 MG TABLET. PO SCH ×2 (13:45→21:09)
[2021-07-18 15:35] VITALS: BP 109/71
--- NOTE | 2021-07-18 21:07 | PDOC ---
Exam Note: Kal Note: Please also refer to the separate dictated note~for this date of service dictated separately.~Patient seen individually. Discussed the patient with Nursing staff reviewed the chart.~Reviewed interim history and current functioning. Reviewed vital signs,~Labs/ Radiology~and current medications noted below. Continue current treatment with the changes noted in the dictated addendum note Assessment: Vital Signs/I&O: Vital Signs Date Time Temp Pulse Resp B/P (MAP) Pulse Ox O2 Delivery O2 Flow Rate FiO2 07/18/21 15:35 97.8 93 18 109/71 (84) 97 07/17/21 06:05 Room Air I & O 07/17/21 07/17/21 07/18/21 15:00 23:00 07:00 Intake Total 720 ml 360 ml 120 ml Balance 720 ml 360 ml 120 ml Labs: Laboratory Tests Test 07/18/21 06:20 07/18/21 07:29 White Blood Count 6.0 x10^3/uL (4.0-11.0) Red Blood Count 4.91 x10^6/uL (4.30-5.70) Hemoglobin 15.5 g/dL (13.0-17.5) Hematocrit 46.2 % (39.0-53.0) Mean Corpuscular Volume 94 fL (79-100) Mean Corpuscular Hemoglobin 32 pg (25-35) Mean Corpuscular Hemoglobin Concent 34 g/dL (31-37) Red Cell Distribution Width 14.0 % (11.5-14.5) Platelet Count 184 x10^3/uL (140-400) Neutrophils (%) (Auto) 54 % (31-73) Lymphocytes (%) (Auto) 37 % (24-48) Monocytes (%) (Auto) 6 % (0-9) Eosinophils (%) (Auto) 3 % (0-3) Basophils (%) (Auto) 0 % (0-3) Neutrophils # (Auto) 3.2 x10^3uL (1.8-7.7) Lymphocytes # (Auto) 2.2 x10^3/uL (1.0-4.8) Monocytes # (Auto) 0.4 x10^3/uL (0.0-1.1) Eosinophils # (Auto) 0.2 x10^3/uL (0.0-0.7) Basophils # (Auto) 0.0 x10^3/uL (0.0-0.2) Sodium Level 144 mmol/L (136-145) Potassium Level 3.8 mmol/L (3.5-5.1) Chloride Level 105 mmol/L (98-107) Carbon Dioxide Level 31 mmol/L (21-32) Anion Gap 8 (6-14) Blood Urea Nitrogen 16 mg/dL (8-26) Creatinine 0.8 mg/dL (0.7-1.3) Estimated GFR (Cockcroft-Gault) 98.6 BUN/Creatinine Ratio 20 (6-20) Glucose Level 99 mg/dL (70-99) Calcium Level 9.0 mg/dL (8.5-10.1) Total Bilirubin 0.7 mg/dL (0.2-1.0) Aspartate Amino Transferase (AST) 13 U/L (15-37) L Alanine Aminotransferase (ALT) 32 U/L (16-63) Alkaline Phosphatase 92 U/L (46-116) Total Protein 7.1 g/dL (6.4-8.2) Albumin 4.0 g/dL (3.4-5.0) Albumin/Globulin Ratio 1.3 (1.0-1.7) Glucose (Fingerstick) 101 mg/dL (70-99) H Current Medications: Meds: Laboratory Tests Test 07/18/21 06:20 07/18/21 07:29 White Blood Count 6.0 x10^3/uL Red Blood Count 4.91 x10^6/uL Hemoglobin 15.5 g/dL Hematocrit 46.2 % Mean Corpuscular Volume 94 fL Mean Corpuscular Hemoglobin 32 pg Mean Corpuscular Hemoglobin Concent 34 g/dL Red Cell Distribution Width 14.0 % Platelet Count 184 x10^3/uL Neutrophils (%) (Auto) 54 % Lymphocytes (%) (Auto) 37 % Monocytes (%) (Auto) 6 % Eosinophils (%) (Auto) 3 % Basophils (%) (Auto) 0 % Neutrophils # (Auto) 3.2 x10^3uL Lymphocytes # (Auto) 2.2 x10^3/uL Monocytes # (Auto) 0.4 x10^3/uL Eosinophils # (Auto) 0.2 x10^3/uL Basophils # (Auto) 0.0 x10^3/uL Sodium Level 144 mmol/L Potassium Level 3.8 mmol/L Chloride Level 105 mmol/L Carbon Dioxide Level 31 mmol/L Anion Gap 8 Blood Urea Nitrogen 16 mg/dL Creatinine 0.8 mg/dL Estimated GFR (Cockcroft-Gault) 98.6 BUN/Creatinine Ratio 20 Glucose Level 99 mg/dL Calcium Level 9.0 mg/dL Total Bilirubin 0.7 mg/dL Aspartate Amino Transf (AST/SGOT) 13 U/L Alanine Aminotransferase (ALT/SGPT) 32 U/L Alkaline Phosphatase 92 U/L Total Protein 7.1 g/dL Albumin 4.0 g/dL Albumin/Globulin Ratio 1.3 Glucose (Fingerstick) 101 mg/dL Current Medications Medications (Trade) Dose Ordered Sig/Kaley Route PRN Reason Start Time Stop Time Status Last Admin Dose Admin Ascorbic Acid (Vitamin C) 1,000 mg DAILY PO 06/16/21 09:00 07/18/21 08:12 Aspirin (Aspirin Chewable) 81 mg DAILY PO 06/16/21 09:00 07/18/21 08:12 Atorvastatin Calcium (Lipitor) 20 mg QHS PO 06/15/21 21:00 07/17/21 20:32 Buspirone HCl (Buspar) 20 mg TID PO 06/15/21 21:00 07/18/21 13:45 Carbidopa/Levodopa (Sinemet 25/100) 1 tab BID94 PO 06/16/21 09:00 07/18/21 17:19 Clonazepam (KlonoPIN) 0.5 mg BID PO 06/15/21 21:00 07/18/21 08:12 Famotidine (Pepcid) 20 mg BID PO 06/15/21 21:00 07/18/21 08:11 Folic Acid (Folic Acid) 1 mg DAILY PO 06/16/21 09:00 07/18/21 08:13 Metformin HCl (Glucophage) 1,000 mg DAILYWBKFT PO 06/16/21 08:00 07/18/21 08:11 Quetiapine Fumarate (SEROquel) 50 mg DAILY PO 06/16/21 09:00 07/12/21 07:40 DC 07/11/21 15:00 Quetiapine Fumarate (SEROquel) 100 mg DAILY@1400 PO 06/16/21 14:00 07/18/21 13:45 Citalopram Hydrobromide (CeleXA) 40 mg DAILY PO 06/16/21 09:00 07/18/21 08:12 Guaifenesin (Mucinex Er) 1,200 mg BID PO 06/15/21 21:00 06/17/21 15:45 DC 06/17/21 08:01 Lamotrigine (LaMICtal) 200 mg BID PO 06/15/21 21:00 07/18/21 08:12 Lisinopril (Prinivil) 2.5 mg DAILY PO 06/16/21 09:00 07/18/21 08:12 Quetiapine Fumarate (SEROquel) 300 mg HS PO 06/15/21 21:00 07/17/21 20:32 Zinc Sulfate (Orazinc) 220 mg DAILY PO 06/16/21 09:00 07/18/21 08:13 Acetaminophen (Tylenol) 650 mg PRN Q6HRS PRN PO MILD PAIN / TEMP > 100.3'F 06/15/21 20:00 07/18/21 19:28 Al Hydroxide/Mg Hydroxide (Mylanta Plus Xs) 30 ml PRN AFTMEALHC PRN PO DYSPEPSIA 06/15/21 20:00 Magnesium Hydroxide (Milk Of Magnesia) 2,400 mg PRN QHS PRN PO CONSTIPATION 06/15/21 20:00 Multi-Ingredient Ointment (Analgesic [place]) 1 erum PRN QID PRN TP MUSCLE PAIN 06/15/21 20:00 Vitamin D (Vitamin D3) 1,000 unit DAILY PO 07/04/21 09:00 07/18/21 08:12 Quetiapine Fumarate (SEROquel) 50 mg DAILY PO 07/12/21 09:00 07/18/21 08:12 I have reviewed the current psychotropics carefully including drug interactions. Risk benefit ratio favors no change other than as noted in my dictated progress note. Diagnosis: Problems: (1) Psychotic disorder (2) Major depressive disorder with psychotic features (3) Anxiety disorder (4) Major depressive disorder, recurrent episode (5) Impulse control disorder LUTHER WARNER MD Jul 18, 2021 21:07
[2021-07-18] MEDS: ATORVASTATIN CALCIUM 20 MG TABLET PO SCH (21:09)
[2021-07-19 06:20] VITALS: BP 103/64
[2021-07-19] MEDS: busPIRone 10 MG TABLET. PO SCH ×3 (08:04→19:58)
[2021-07-19] MEDS: ZINC SULFATE 220 MG CAPSULE. PO SCH (08:04)
[2021-07-19] MEDS: ASPIRIN CHEWABLE 81 MG TABLET. PO SCH (08:04)
[2021-07-19] MEDS: metFORMIN 500 MG TABLET PO SCH (08:04)
[2021-07-19] MEDS: FOLIC ACID 1 MG TABLET PO SCH (08:04)
[2021-07-19] MEDS: CHOLECALCIFEROL (VITAMIN D3) 1,000 UNIT TABLET PO SCH (08:04)
[2021-07-19] MEDS: ASCORBIC ACID 1,000 MG TABLET PO SCH (08:04)
[2021-07-19] MEDS: CARBIDOPA/LEVODOPA 25/100MG TABLET PO SCH ×2 (08:05→17:06)
[2021-07-19] MEDS: FAMOTIDINE 20 MG TABLET PO SCH ×2 (08:05→19:58)
[2021-07-19] MEDS: QUEtiapine 50 MG TABLET. PO SCH (08:05)
[2021-07-19] MEDS: CITALOPRAM 20 MG TABLET. PO SCH (08:05)
[2021-07-19] MEDS: lamoTRIgine 100 MG TABLET. PO SCH ×2 (08:05→19:58)
[2021-07-19] MEDS: clonazePAM 0.5 MG TABLET PO SCH ×2 (08:05→19:58)
[2021-07-19] MEDS: LISINOPRIL 5 MG TABLET. PO SCH (08:06)
[2021-07-19] MEDS: QUEtiapine 100 MG TABLET. PO SCH ×2 (14:18→19:57)
[2021-07-19 16:08] VITALS: BP 106/69
[2021-07-19] MEDS: ATORVASTATIN CALCIUM 20 MG TABLET PO SCH (19:58)
--- NOTE | 2021-07-19 21:34 | PDOC ---
Exam Note: Kal Note: Please also refer to the separate dictated note~for this date of service dictated separately.~Patient seen individually. Discussed the patient with Nursing staff reviewed the chart.~Reviewed interim history and current functioning. Reviewed vital signs,~Labs/ Radiology~and current medications noted below. Continue current treatment with the changes noted in the dictated addendum note Assessment: Vital Signs/I&O: Vital Signs Date Time Temp Pulse Resp B/P (MAP) Pulse Ox O2 Delivery O2 Flow Rate FiO2 07/19/21 16:08 98.3 82 20 106/69 (81) 95 07/19/21 06:20 Room Air I & O 07/18/21 07/18/21 07/19/21 15:00 23:00 07:00 Intake Total 720 ml 360 ml Balance 720 ml 360 ml Labs: Laboratory Tests Test 07/19/21 07:31 Glucose (Fingerstick) 110 mg/dL (70-99) H Current Medications: Meds: Laboratory Tests Test 07/19/21 07:31 Glucose (Fingerstick) 110 mg/dL Current Medications Medications (Trade) Dose Ordered Sig/Kaley Route PRN Reason Start Time Stop Time Status Last Admin Dose Admin Ascorbic Acid (Vitamin C) 1,000 mg DAILY PO 06/16/21 09:00 07/19/21 08:04 Aspirin (Aspirin Chewable) 81 mg DAILY PO 06/16/21 09:00 07/19/21 08:04 Atorvastatin Calcium (Lipitor) 20 mg QHS PO 06/15/21 21:00 07/19/21 19:58 Buspirone HCl (Buspar) 20 mg TID PO 06/15/21 21:00 07/19/21 19:58 Carbidopa/Levodopa (Sinemet 25/100) 1 tab BID94 PO 06/16/21 09:00 07/19/21 17:06 Clonazepam (KlonoPIN) 0.5 mg BID PO 06/15/21 21:00 07/19/21 19:58 Famotidine (Pepcid) 20 mg BID PO 06/15/21 21:00 07/19/21 19:58 Folic Acid (Folic Acid) 1 mg DAILY PO 06/16/21 09:00 07/19/21 08:04 Metformin HCl (Glucophage) 1,000 mg DAILYWBKFT PO 06/16/21 08:00 07/19/21 08:04 Quetiapine Fumarate (SEROquel) 50 mg DAILY PO 06/16/21 09:00 07/12/21 07:40 DC 07/11/21 15:00 Quetiapine Fumarate (SEROquel) 100 mg DAILY@1400 PO 06/16/21 14:00 07/19/21 14:18 Citalopram Hydrobromide (CeleXA) 40 mg DAILY PO 06/16/21 09:00 07/19/21 08:05 Guaifenesin (Mucinex Er) 1,200 mg BID PO 06/15/21 21:00 06/17/21 15:45 DC 06/17/21 08:01 Lamotrigine (LaMICtal) 200 mg BID PO 06/15/21 21:00 07/19/21 19:58 Lisinopril (Prinivil) 2.5 mg DAILY PO 06/16/21 09:00 07/19/21 08:06 Quetiapine Fumarate (SEROquel) 300 mg HS PO 06/15/21 21:00 07/19/21 19:57 Zinc Sulfate (Orazinc) 220 mg DAILY PO 06/16/21 09:00 07/19/21 08:04 Acetaminophen (Tylenol) 650 mg PRN Q6HRS PRN PO MILD PAIN / TEMP > 100.3'F 06/15/21 20:00 07/18/21 19:28 Al Hydroxide/Mg Hydroxide (Mylanta Plus Xs) 30 ml PRN AFTMEALHC PRN PO DYSPEPSIA 06/15/21 20:00 Magnesium Hydroxide (Milk Of Magnesia) 2,400 mg PRN QHS PRN PO CONSTIPATION 06/15/21 20:00 Multi-Ingredient Ointment (Analgesic [place]) 1 erum PRN QID PRN TP MUSCLE PAIN 06/15/21 20:00 Vitamin D (Vitamin D3) 1,000 unit DAILY PO 07/04/21 09:00 07/19/21 08:04 Quetiapine Fumarate (SEROquel) 50 mg DAILY PO 07/12/21 09:00 07/19/21 08:05 I have reviewed the current psychotropics carefully including drug interactions. Risk benefit ratio favors no change other than as noted in my dictated progress note. Diagnosis: Problems: (1) Psychotic disorder (2) Major depressive disorder with psychotic features (3) Anxiety disorder (4) Major depressive disorder, recurrent episode (5) Impulse control disorder LUTHER WARNER MD Jul 19, 2021 21:34
[2021-07-20 06:07] VITALS: BP 130/79
--- NOTE | 2021-07-20 06:46 | PDOC ---
Exam Note: Kal Note: This note is a late entry for 07/18/2021 covers elements not covered in my initial note. Subjective: The patient was seen individually on 07/18/2021, discussed and reviewed the chart with Reny BALLARD. I met with him in his room. He was again watching history channel on [employer] and seems mentally quite active and exploring information. Review of Systems: Positive for headache. No CV, , pulmonary, eye system symptoms on review. Mental Status Exam: The patient is reasonably oriented. Speech has some latency, coherent. Abstraction fair. Computation impaired. Language function intact. Mood and affect improved. No suicidal or homicidal ideation. Laboratory Data: Reviewed. Impression: Major depressive disorder with psychotic features in partial remission. Anxiety disorder unspecified. Plan: No change from initial note. Assessment: Vital Signs/I&O: Vital Signs Date Time Temp Pulse Resp B/P (MAP) Pulse Ox O2 Delivery O2 Flow Rate FiO2 07/20/21 06:07 97.9 93 20 130/79 (96) 97 07/19/21 06:20 Room Air I & O 07/19/21 07/19/21 07/20/21 15:00 23:00 07:00 Intake Total 720 ml 120 ml Balance 720 ml 120 ml Labs: Laboratory Tests Test 07/19/21 07:31 Glucose (Fingerstick) 110 mg/dL (70-99) H Current Medications: I have reviewed the current psychotropics carefully including drug interactions. Risk benefit ratio favors no change other than as noted in my dictated progress note. Diagnosis: Problems: (1) Psychotic disorder (2) Major depressive disorder with psychotic features (3) Anxiety disorder (4) Major depressive disorder, recurrent episode (5) Impulse control disorder LUTHER WARNER MD Jul 20, 2021 06:46
--- NOTE | 2021-07-20 06:59 | PDOC ---
Exam Note: Kal Note: This note is a late entry for 07/19/2021 covers elements not covered in my initial note. Subjective: The patient was seen individually on 07/19/2021, discussed and reviewed the chart with Teetee BALLARD. The patient slept 7-3/4 hours previous night. I met with him in the hallway. He has attended groups as well, more interactive. Denies psychotic symptoms or suicidal ideation. Review of Systems: Ambulation impaired with walker. No CV, , pulmonary, eye system symptoms on review. Mental Status Exam: The patient is reasonably oriented. Speech has some latenc y, coherent. Abstraction fair. Computation impaired. Language function intact. Attention span fair. Mood and affect improved. Laboratory Data: Reviewed. Impression: Major depressive disorder with psychotic features in partial remission. Anxiety disorder unspecified. Plan: No change from initial note. Assessment: Vital Signs/I&O: Vital Signs Date Time Temp Pulse Resp B/P (MAP) Pulse Ox O2 Delivery O2 Flow Rate FiO2 07/20/21 06:07 97.9 93 20 130/79 (96) 97 07/19/21 06:20 Room Air I & O 07/19/21 07/19/21 07/20/21 15:00 23:00 07:00 Intake Total 720 ml 120 ml Balance 720 ml 120 ml Labs: Laboratory Tests Test 07/19/21 07:31 Glucose (Fingerstick) 110 mg/dL (70-99) H Current Medications: I have reviewed the current psychotropics carefully including drug interactions. Risk benefit ratio favors no change other than as noted in my dictated progress note. Diagnosis: Problems: (1) Psychotic disorder (2) Major depressive disorder with psychotic features (3) Anxiety disorder (4) Major depressive disorder, recurrent episode (5) Impulse control disorder LUTHER WARNER MD Jul 20, 2021 06:59
[2021-07-20] MEDS: clonazePAM 0.5 MG TABLET PO SCH ×2 (08:08→20:24)
[2021-07-20] MEDS: QUEtiapine 50 MG TABLET. PO SCH (08:08)
[2021-07-20] MEDS: ASPIRIN CHEWABLE 81 MG TABLET. PO SCH (08:08)
[2021-07-20] MEDS: CHOLECALCIFEROL (VITAMIN D3) 1,000 UNIT TABLET PO SCH (08:08)
[2021-07-20] MEDS: busPIRone 10 MG TABLET. PO SCH ×3 (08:08→20:25)
[2021-07-20] MEDS: lamoTRIgine 100 MG TABLET. PO SCH ×2 (08:08→20:24)
[2021-07-20] MEDS: FAMOTIDINE 20 MG TABLET PO SCH ×2 (08:08→20:25)
[2021-07-20] MEDS: CITALOPRAM 20 MG TABLET. PO SCH (08:09)
[2021-07-20] MEDS: LISINOPRIL 5 MG TABLET. PO SCH (08:11)
[2021-07-20] MEDS: ZINC SULFATE 220 MG CAPSULE. PO SCH (08:11)
[2021-07-20] MEDS: ASCORBIC ACID 1,000 MG TABLET PO SCH (08:12)
[2021-07-20] MEDS: CARBIDOPA/LEVODOPA 25/100MG TABLET PO SCH ×2 (08:12→16:27)
[2021-07-20] MEDS: FOLIC ACID 1 MG TABLET PO SCH (08:12)
[2021-07-20] MEDS: metFORMIN 500 MG TABLET PO SCH (08:12)
[2021-07-20] MEDS: QUEtiapine 100 MG TABLET. PO SCH ×2 (14:10→20:24)
[2021-07-20 15:23] VITALS: BP 116/80
[2021-07-20] MEDS: ATORVASTATIN CALCIUM 20 MG TABLET PO SCH (20:24)
--- NOTE | 2021-07-20 21:26 | PDOC ---
Exam Note: Kal Note: Please also refer to the separate dictated note~for this date of service dictated separately.~Patient seen individually. Discussed the patient with Nursing staff reviewed the chart.~Reviewed interim history and current functioning. Reviewed vital signs,~Labs/ Radiology~and current medications noted below. Continue current treatment with the changes noted in the dictated addendum note Assessment: Vital Signs/I&O: Vital Signs Date Time Temp Pulse Resp B/P (MAP) Pulse Ox O2 Delivery O2 Flow Rate FiO2 07/20/21 15:23 97.9 90 16 116/80 (92) 94 Room Air I & O 07/19/21 07/19/21 07/20/21 15:00 23:00 07:00 Intake Total 720 ml 120 ml Balance 720 ml 120 ml Labs: Laboratory Tests Test 07/20/21 07:56 Glucose (Fingerstick) 103 mg/dL (70-99) H Current Medications: Meds: Laboratory Tests Test 07/20/21 07:56 Glucose (Fingerstick) 103 mg/dL Current Medications Medications (Trade) Dose Ordered Sig/Kaley Route PRN Reason Start Time Stop Time Status Last Admin Dose Admin Ascorbic Acid (Vitamin C) 1,000 mg DAILY PO 06/16/21 09:00 07/20/21 08:12 Aspirin (Aspirin Chewable) 81 mg DAILY PO 06/16/21 09:00 07/20/21 08:08 Atorvastatin Calcium (Lipitor) 20 mg QHS PO 06/15/21 21:00 07/20/21 20:24 Buspirone HCl (Buspar) 20 mg TID PO 06/15/21 21:00 07/20/21 20:25 Carbidopa/Levodopa (Sinemet 25/100) 1 tab BID94 PO 06/16/21 09:00 07/20/21 16:27 Clonazepam (KlonoPIN) 0.5 mg BID PO 06/15/21 21:00 07/20/21 20:24 Famotidine (Pepcid) 20 mg BID PO 06/15/21 21:00 07/20/21 20:25 Folic Acid (Folic Acid) 1 mg DAILY PO 06/16/21 09:00 07/20/21 08:12 Metformin HCl (Glucophage) 1,000 mg DAILYWBKFT PO 06/16/21 08:00 07/20/21 08:12 Quetiapine Fumarate (SEROquel) 50 mg DAILY PO 06/16/21 09:00 07/12/21 07:40 DC 07/11/21 15:00 Quetiapine Fumarate (SEROquel) 100 mg DAILY@1400 PO 06/16/21 14:00 07/20/21 14:10 Citalopram Hydrobromide (CeleXA) 40 mg DAILY PO 06/16/21 09:00 07/20/21 08:09 Guaifenesin (Mucinex Er) 1,200 mg BID PO 06/15/21 21:00 06/17/21 15:45 DC 06/17/21 08:01 Lamotrigine (LaMICtal) 200 mg BID PO 06/15/21 21:00 07/20/21 20:24 Lisinopril (Prinivil) 2.5 mg DAILY PO 06/16/21 09:00 07/20/21 08:11 Quetiapine Fumarate (SEROquel) 300 mg HS PO 06/15/21 21:00 07/20/21 20:24 Zinc Sulfate (Orazinc) 220 mg DAILY PO 06/16/21 09:00 07/20/21 08:11 Acetaminophen (Tylenol) 650 mg PRN Q6HRS PRN PO MILD PAIN / TEMP > 100.3'F 06/15/21 20:00 07/18/21 19:28 Al Hydroxide/Mg Hydroxide (Mylanta Plus Xs) 30 ml PRN AFTMEALHC PRN PO DYSPEPSIA 06/15/21 20:00 Magnesium Hydroxide (Milk Of Magnesia) 2,400 mg PRN QHS PRN PO CONSTIPATION 06/15/21 20:00 Multi-Ingredient Ointment (Analgesic [place]) 1 erum PRN QID PRN TP MUSCLE PAIN 06/15/21 20:00 Vitamin D (Vitamin D3) 1,000 unit DAILY PO 07/04/21 09:00 07/20/21 08:08 Quetiapine Fumarate (SEROquel) 50 mg DAILY PO 07/12/21 09:00 07/20/21 08:08 I have reviewed the current psychotropics carefully including drug interactions. Risk benefit ratio favors no change other than as noted in my dictated progress note. Diagnosis: Problems: (1) Major depressive disorder with psychotic features (2) Anxiety disorder (3) Major depressive disorder, recurrent episode (4) Impulse control disorder LUTHER WARNER MD Jul 20, 2021 21:26
[2021-07-21 06:03] VITALS: BP 121/81
[2021-07-21] MEDS: CARBIDOPA/LEVODOPA 25/100MG TABLET PO SCH ×2 (08:11→14:32)
[2021-07-21] MEDS: CITALOPRAM 20 MG TABLET. PO SCH (08:11)
[2021-07-21] MEDS: CHOLECALCIFEROL (VITAMIN D3) 1,000 UNIT TABLET PO SCH (08:11)
[2021-07-21] MEDS: QUEtiapine 50 MG TABLET. PO SCH (08:11)
[2021-07-21] MEDS: metFORMIN 500 MG TABLET PO SCH (08:11)
[2021-07-21] MEDS: lamoTRIgine 100 MG TABLET. PO SCH ×2 (08:11→21:00)
[2021-07-21] MEDS: busPIRone 10 MG TABLET. PO SCH ×3 (08:12→21:00)
[2021-07-21] MEDS: FAMOTIDINE 20 MG TABLET PO SCH ×2 (08:12→21:00)
[2021-07-21] MEDS: FOLIC ACID 1 MG TABLET PO SCH (08:12)
[2021-07-21] MEDS: ASCORBIC ACID 1,000 MG TABLET PO SCH (08:12)
[2021-07-21] MEDS: ZINC SULFATE 220 MG CAPSULE. PO SCH (08:12)
[2021-07-21] MEDS: ASPIRIN CHEWABLE 81 MG TABLET. PO SCH (08:12)
[2021-07-21] MEDS: clonazePAM 0.5 MG TABLET PO SCH ×2 (08:12→21:01)
[2021-07-21] MEDS: LISINOPRIL 5 MG TABLET. PO SCH (08:20)
[2021-07-21] MEDS: QUEtiapine 100 MG TABLET. PO SCH ×2 (14:32→21:00)
[2021-07-21 15:52] VITALS: BP 112/73
[2021-07-21] MEDS: ATORVASTATIN CALCIUM 20 MG TABLET PO SCH (21:00)
--- NOTE | 2021-07-21 21:26 | PDOC ---
Exam Note: Kal Note: Please also refer to the separate dictated note~for this date of service dictated separately.~Patient seen individually. Discussed the patient with Nursing staff reviewed the chart.~Reviewed interim history and current functioning. Reviewed vital signs,~Labs/ Radiology~and current medications noted below. Continue current treatment with the changes noted in the dictated addendum note Assessment: Vital Signs/I&O: Vital Signs Date Time Temp Pulse Resp B/P (MAP) Pulse Ox O2 Delivery O2 Flow Rate FiO2 07/21/21 15:52 97.8 84 18 112/73 (86) 97 07/20/21 15:23 Room Air I & O 07/20/21 07/20/21 07/21/21 14:59 22:59 06:59 Intake Total 840 ml 960 ml Balance 840 ml 960 ml Labs: Laboratory Tests Test 07/21/21 07:47 Glucose (Fingerstick) 113 mg/dL (70-99) H Current Medications: Meds: Laboratory Tests Test 07/21/21 07:47 Glucose (Fingerstick) 113 mg/dL Current Medications Medications (Trade) Dose Ordered Sig/Kaley Route PRN Reason Start Time Stop Time Status Last Admin Dose Admin Ascorbic Acid (Vitamin C) 1,000 mg DAILY PO 06/16/21 09:00 07/21/21 08:12 Aspirin (Aspirin Chewable) 81 mg DAILY PO 06/16/21 09:00 07/21/21 08:12 Atorvastatin Calcium (Lipitor) 20 mg QHS PO 06/15/21 21:00 07/21/21 21:00 Buspirone HCl (Buspar) 20 mg TID PO 06/15/21 21:00 07/21/21 21:00 Carbidopa/Levodopa (Sinemet 25/100) 1 tab BID94 PO 06/16/21 09:00 07/21/21 14:32 Clonazepam (KlonoPIN) 0.5 mg BID PO 06/15/21 21:00 07/21/21 21:01 Famotidine (Pepcid) 20 mg BID PO 06/15/21 21:00 07/21/21 21:00 Folic Acid (Folic Acid) 1 mg DAILY PO 06/16/21 09:00 07/21/21 08:12 Metformin HCl (Glucophage) 1,000 mg DAILYWBKFT PO 06/16/21 08:00 07/21/21 08:11 Quetiapine Fumarate (SEROquel) 50 mg DAILY PO 06/16/21 09:00 07/12/21 07:40 DC 07/11/21 15:00 Quetiapine Fumarate (SEROquel) 100 mg DAILY@1400 PO 06/16/21 14:00 07/21/21 14:32 Citalopram Hydrobromide (CeleXA) 40 mg DAILY PO 06/16/21 09:00 07/21/21 08:11 Guaifenesin (Mucinex Er) 1,200 mg BID PO 06/15/21 21:00 06/17/21 15:45 DC 06/17/21 08:01 Lamotrigine (LaMICtal) 200 mg BID PO 06/15/21 21:00 07/21/21 21:00 Lisinopril (Prinivil) 2.5 mg DAILY PO 06/16/21 09:00 07/21/21 08:20 Quetiapine Fumarate (SEROquel) 300 mg HS PO 06/15/21 21:00 07/21/21 21:00 Zinc Sulfate (Orazinc) 220 mg DAILY PO 06/16/21 09:00 07/21/21 08:12 Acetaminophen (Tylenol) 650 mg PRN Q6HRS PRN PO MILD PAIN / TEMP > 100.3'F 06/15/21 20:00 07/18/21 19:28 Al Hydroxide/Mg Hydroxide (Mylanta Plus Xs) 30 ml PRN AFTMEALHC PRN PO DYSPEPSIA 06/15/21 20:00 Magnesium Hydroxide (Milk Of Magnesia) 2,400 mg PRN QHS PRN PO CONSTIPATION 06/15/21 20:00 Multi-Ingredient Ointment (Analgesic [place]) 1 erum PRN QID PRN TP MUSCLE PAIN 06/15/21 20:00 Vitamin D (Vitamin D3) 1,000 unit DAILY PO 07/04/21 09:00 07/21/21 08:11 Quetiapine Fumarate (SEROquel) 50 mg DAILY PO 07/12/21 09:00 07/21/21 08:11 I have reviewed the current psychotropics carefully including drug interactions. Risk benefit ratio favors no change other than as noted in my dictated progress note. Diagnosis: Problems: (1) Psychotic disorder (2) Major depressive disorder with psychotic features (3) Anxiety disorder (4) Major depressive disorder, recurrent episode (5) Impulse control disorder LUTHER WARNER MD Jul 21, 2021 21:26
[2021-07-22 06:14] VITALS: BP 115/71
--- NOTE | 2021-07-22 07:05 | PDOC ---
Exam Note: Kal Note: This note is a late entry for 07/20/2021 covers elements not covered in my initial note. Subjective: The patient was seen individually on 07/20/2021, discussed and reviewed the chart with Teetee BALLARD. The patient slept 8 hours previous night. Overall patient is doing well. As I met with him in his room in the evening he was on kay[employer] watching history of the production of [employer]. He continues to be quite interested and different things and keeps himself occupied. No psychotic symptoms, suicidal or homicidal ideation. Review of Systems: Ambulation impaired. No CV, , pulmonary, eye system symptoms on review. Mental Status Exam: The patient is reasonably oriented. Speech has some latency, coherent. Abstraction fair. Computation impaired. Language function intact. Attention span fair. Mood and affect improved. Laboratory Data: Reviewed. Impression: Major depressive disorder with psychotic features in partial remission. Anxiety disorder unspecified. Plan: No change from initial note. Assessment: Vital Signs/I&O: Vital Signs Date Time Temp Pulse Resp B/P (MAP) Pulse Ox O2 Delivery O2 Flow Rate FiO2 07/22/21 06:14 97.4 73 20 115/71 (86) 98 07/20/21 15:23 Room Air I & O 07/21/21 07/21/21 07/22/21 15:00 23:00 07:00 Intake Total 720 ml 600 ml Balance 720 ml 600 ml Labs: Laboratory Tests Test 07/21/21 07:47 Glucose (Fingerstick) 113 mg/dL (70-99) H Current Medications: I have reviewed the current psychotropics carefully including drug interactions. Risk benefit ratio favors no change other than as noted in my dictated progress note. Diagnosis: Problems: (1) Psychotic disorder (2) Major depressive disorder with psychotic features (3) Anxiety disorder (4) Major depressive disorder, recurrent episode (5) Impulse control disorder LUTHER WARNER MD Jul 22, 2021 07:05
[2021-07-22] MEDS: ASCORBIC ACID 1,000 MG TABLET PO SCH (08:09)
[2021-07-22] MEDS: LISINOPRIL 5 MG TABLET. PO SCH (08:10)
[2021-07-22] MEDS: FOLIC ACID 1 MG TABLET PO SCH (08:11)
[2021-07-22] MEDS: CHOLECALCIFEROL (VITAMIN D3) 1,000 UNIT TABLET PO SCH (08:11)
[2021-07-22] MEDS: metFORMIN 500 MG TABLET PO SCH (08:11)
[2021-07-22] MEDS: busPIRone 10 MG TABLET. PO SCH ×3 (08:12→20:30)
[2021-07-22] MEDS: QUEtiapine 50 MG TABLET. PO SCH (08:12)
[2021-07-22] MEDS: ASPIRIN CHEWABLE 81 MG TABLET. PO SCH (08:12)
[2021-07-22] MEDS: lamoTRIgine 100 MG TABLET. PO SCH ×2 (08:12→20:24)
[2021-07-22] MEDS: FAMOTIDINE 20 MG TABLET PO SCH ×2 (08:13→20:24)
[2021-07-22] MEDS: CITALOPRAM 20 MG TABLET. PO SCH (08:13)
[2021-07-22] MEDS: clonazePAM 0.5 MG TABLET PO SCH ×2 (08:13→20:25)
[2021-07-22] MEDS: CARBIDOPA/LEVODOPA 25/100MG TABLET PO SCH ×2 (08:14→15:02)
[2021-07-22] MEDS: ZINC SULFATE 220 MG CAPSULE. PO SCH (08:14)
[2021-07-22] MEDS: QUEtiapine 100 MG TABLET. PO SCH ×2 (15:02→20:25)
[2021-07-22 15:30] VITALS: BP 118/76
[2021-07-22] MEDS: ACETAMINOPHEN 325 MG TABLET PO PRN (16:39)
[2021-07-22] MEDS: ATORVASTATIN CALCIUM 20 MG TABLET PO SCH (20:25)
--- NOTE | 2021-07-22 21:14 | PDOC ---
Exam Note: Kal Note: Please also refer to the separate dictated note~for this date of service dictated separately.~Patient seen individually. Discussed the patient with Nursing staff reviewed the chart.~Reviewed interim history and current functioning. Reviewed vital signs,~Labs/ Radiology~and current medications noted below. Continue current treatment with the changes noted in the dictated addendum note Assessment: Vital Signs/I&O: Vital Signs Date Time Temp Pulse Resp B/P (MAP) Pulse Ox O2 Delivery O2 Flow Rate FiO2 07/22/21 15:30 98.6 92 12 118/76 (90) 95 Room Air I & O 07/21/21 07/21/21 07/22/21 14:59 22:59 06:59 Intake Total 720 ml 600 ml Balance 720 ml 600 ml Labs: Laboratory Tests Test 07/22/21 07:50 Glucose (Fingerstick) 104 mg/dL (70-99) H Current Medications: Meds: Laboratory Tests Test 07/22/21 07:50 Glucose (Fingerstick) 104 mg/dL Current Medications Medications (Trade) Dose Ordered Sig/Kaley Route PRN Reason Start Time Stop Time Status Last Admin Dose Admin Ascorbic Acid (Vitamin C) 1,000 mg DAILY PO 06/16/21 09:00 07/22/21 08:09 Aspirin (Aspirin Chewable) 81 mg DAILY PO 06/16/21 09:00 07/22/21 08:12 Atorvastatin Calcium (Lipitor) 20 mg QHS PO 06/15/21 21:00 07/22/21 20:25 Buspirone HCl (Buspar) 20 mg TID PO 06/15/21 21:00 07/22/21 20:30 Carbidopa/Levodopa (Sinemet 25/100) 1 tab BID94 PO 06/16/21 09:00 07/22/21 15:02 Clonazepam (KlonoPIN) 0.5 mg BID PO 06/15/21 21:00 07/22/21 20:25 Famotidine (Pepcid) 20 mg BID PO 06/15/21 21:00 07/22/21 20:24 Folic Acid (Folic Acid) 1 mg DAILY PO 06/16/21 09:00 07/22/21 08:11 Metformin HCl (Glucophage) 1,000 mg DAILYWBKFT PO 06/16/21 08:00 07/22/21 08:11 Quetiapine Fumarate (SEROquel) 50 mg DAILY PO 06/16/21 09:00 07/12/21 07:40 DC 07/11/21 15:00 Quetiapine Fumarate (SEROquel) 100 mg DAILY@1400 PO 06/16/21 14:00 07/22/21 15:02 Citalopram Hydrobromide (CeleXA) 40 mg DAILY PO 06/16/21 09:00 07/22/21 08:13 Guaifenesin (Mucinex Er) 1,200 mg BID PO 06/15/21 21:00 06/17/21 15:45 DC 06/17/21 08:01 Lamotrigine (LaMICtal) 200 mg BID PO 06/15/21 21:00 07/22/21 20:24 Lisinopril (Prinivil) 2.5 mg DAILY PO 06/16/21 09:00 07/22/21 08:10 Quetiapine Fumarate (SEROquel) 300 mg HS PO 06/15/21 21:00 07/22/21 20:25 Zinc Sulfate (Orazinc) 220 mg DAILY PO 06/16/21 09:00 07/22/21 08:14 Acetaminophen (Tylenol) 650 mg PRN Q6HRS PRN PO MILD PAIN / TEMP > 100.3'F 06/15/21 20:00 07/22/21 16:39 Al Hydroxide/Mg Hydroxide (Mylanta Plus Xs) 30 ml PRN AFTMEALHC PRN PO DYSPEPSIA 06/15/21 20:00 Magnesium Hydroxide (Milk Of Magnesia) 2,400 mg PRN QHS PRN PO CONSTIPATION 06/15/21 20:00 Multi-Ingredient Ointment (Analgesic [place]) 1 erum PRN QID PRN TP MUSCLE PAIN 06/15/21 20:00 Vitamin D (Vitamin D3) 1,000 unit DAILY PO 07/04/21 09:00 07/22/21 08:11 Quetiapine Fumarate (SEROquel) 50 mg DAILY PO 07/12/21 09:00 07/22/21 08:12 I have reviewed the current psychotropics carefully including drug interactions. Risk benefit ratio favors no change other than as noted in my dictated progress note. Diagnosis: Problems: (1) Psychotic disorder (2) Major depressive disorder with psychotic features (3) Anxiety disorder (4) Major depressive disorder, recurrent episode (5) Impulse control disorder LUTHER WARNER MD Jul 22, 2021 21:13
[2021-07-23 06:12] VITALS: BP 130/79
[2021-07-23] MEDS: busPIRone 10 MG TABLET. PO SCH ×3 (08:22→20:17)
[2021-07-23] MEDS: CITALOPRAM 20 MG TABLET. PO SCH (08:22)
[2021-07-23] MEDS: CARBIDOPA/LEVODOPA 25/100MG TABLET PO SCH ×2 (08:22→16:00)
[2021-07-23] MEDS: QUEtiapine 50 MG TABLET. PO SCH (08:23)
[2021-07-23] MEDS: lamoTRIgine 100 MG TABLET. PO SCH ×2 (08:23→20:18)
[2021-07-23] MEDS: ASPIRIN CHEWABLE 81 MG TABLET. PO SCH (08:23)
[2021-07-23] MEDS: FOLIC ACID 1 MG TABLET PO SCH (08:23)
[2021-07-23] MEDS: ASCORBIC ACID 1,000 MG TABLET PO SCH (08:23)
[2021-07-23] MEDS: metFORMIN 500 MG TABLET PO SCH (08:23)
[2021-07-23] MEDS: CHOLECALCIFEROL (VITAMIN D3) 1,000 UNIT TABLET PO SCH (08:23)
[2021-07-23] MEDS: FAMOTIDINE 20 MG TABLET PO SCH ×2 (08:24→20:17)
[2021-07-23] MEDS: LISINOPRIL 5 MG TABLET. PO SCH (08:24)
[2021-07-23] MEDS: ZINC SULFATE 220 MG CAPSULE. PO SCH (08:24)
[2021-07-23] MEDS: clonazePAM 0.5 MG TABLET PO SCH ×2 (08:25→20:18)
[2021-07-23] MEDS: QUEtiapine 100 MG TABLET. PO SCH ×2 (14:00→20:18)
[2021-07-23 15:35] VITALS: BP 132/92
[2021-07-23] MEDS: ACETAMINOPHEN 325 MG TABLET PO PRN (17:34)
[2021-07-23] MEDS: ATORVASTATIN CALCIUM 20 MG TABLET PO SCH (20:17)
--- NOTE | 2021-07-23 21:50 | PDOC ---
Exam Note: Kal Note: Please also refer to the separate dictated note~for this date of service dictated separately.~Patient seen individually. Discussed the patient with Nursing staff reviewed the chart.~Reviewed interim history and current functioning. Reviewed vital signs,~Labs/ Radiology~and current medications noted below. Continue current treatment with the changes noted in the dictated addendum note Assessment: Vital Signs/I&O: Vital Signs Date Time Temp Pulse Resp B/P (MAP) Pulse Ox O2 Delivery O2 Flow Rate FiO2 07/23/21 15:35 96.8 93 18 132/92 (105) 94 07/23/21 06:12 Room Air I & O 07/22/21 07/22/21 07/23/21 15:00 23:00 07:00 Intake Total 480 ml 480 ml Balance 480 ml 480 ml Labs: Laboratory Tests Test 07/23/21 07:35 Glucose (Fingerstick) 106 mg/dL (70-99) H Current Medications: Meds: Laboratory Tests Test 07/23/21 07:35 Glucose (Fingerstick) 106 mg/dL Current Medications Medications (Trade) Dose Ordered Sig/Kaley Route PRN Reason Start Time Stop Time Status Last Admin Dose Admin Ascorbic Acid (Vitamin C) 1,000 mg DAILY PO 06/16/21 09:00 07/23/21 08:23 Aspirin (Aspirin Chewable) 81 mg DAILY PO 06/16/21 09:00 07/23/21 08:23 Atorvastatin Calcium (Lipitor) 20 mg QHS PO 06/15/21 21:00 07/23/21 20:17 Buspirone HCl (Buspar) 20 mg TID PO 06/15/21 21:00 07/23/21 20:17 Carbidopa/Levodopa (Sinemet 25/100) 1 tab [id number] PO 06/16/21 09:00 07/23/21 16:00 Clonazepam (KlonoPIN) 0.5 mg BID PO 06/15/21 21:00 07/23/21 20:18 Famotidine (Pepcid) 20 mg BID PO 06/15/21 21:00 07/23/21 20:17 Folic Acid (Folic Acid) 1 mg DAILY PO 06/16/21 09:00 07/23/21 08:23 Metformin HCl (Glucophage) 1,000 mg DAILYWBKFT PO 06/16/21 08:00 07/23/21 08:23 Quetiapine Fumarate (SEROquel) 50 mg DAILY PO 06/16/21 09:00 07/12/21 07:40 DC 07/11/21 15:00 Quetiapine Fumarate (SEROquel) 100 mg DAILY@1400 PO 06/16/21 14:00 07/23/21 14:00 Citalopram Hydrobromide (CeleXA) 40 mg DAILY PO 06/16/21 09:00 07/23/21 08:22 Guaifenesin (Mucinex Er) 1,200 mg BID PO 06/15/21 21:00 06/17/21 15:45 DC 06/17/21 08:01 Lamotrigine (LaMICtal) 200 mg BID PO 06/15/21 21:00 07/23/21 20:18 Lisinopril (Prinivil) 2.5 mg DAILY PO 06/16/21 09:00 07/23/21 08:24 Quetiapine Fumarate (SEROquel) 300 mg HS PO 06/15/21 21:00 07/23/21 20:18 Zinc Sulfate (Orazinc) 220 mg DAILY PO 06/16/21 09:00 07/23/21 08:24 Acetaminophen (Tylenol) 650 mg PRN Q6HRS PRN PO MILD PAIN / TEMP > 100.3'F 06/15/21 20:00 07/23/21 17:34 Al Hydroxide/Mg Hydroxide (Mylanta Plus Xs) 30 ml PRN AFTMEALHC PRN PO DYSPEPSIA 06/15/21 20:00 Magnesium Hydroxide (Milk Of Magnesia) 2,400 mg PRN QHS PRN PO CONSTIPATION 06/15/21 20:00 Multi-Ingredient Ointment (Analgesic Slater) 1 erum PRN QID PRN TP MUSCLE PAIN 06/15/21 20:00 Vitamin D (Vitamin D3) 1,000 unit DAILY PO 07/04/21 09:00 07/23/21 08:23 Quetiapine Fumarate (SEROquel) 50 mg DAILY PO 07/12/21 09:00 07/23/21 08:23 I have reviewed the current psychotropics carefully including drug interactions. Risk benefit ratio favors no change other than as noted in my dictated progress note. Diagnosis: Problems: (1) Psychotic disorder (2) Major depressive disorder with psychotic features (3) Anxiety disorder (4) Major depressive disorder, recurrent episode (5) Impulse control disorder LUTHER WARNER MD Jul 23, 2021 21:50
[2021-07-24 05:50] VITALS: BP 106/72
[2021-07-24] MEDS: ACETAMINOPHEN 325 MG TABLET PO PRN ×3 (06:05→19:39)
[2021-07-24] MEDS: ASPIRIN CHEWABLE 81 MG TABLET. PO SCH (08:27)
[2021-07-24] MEDS: metFORMIN 500 MG TABLET PO SCH (08:27)
[2021-07-24] MEDS: CHOLECALCIFEROL (VITAMIN D3) 1,000 UNIT TABLET PO SCH (08:27)
[2021-07-24] MEDS: QUEtiapine 50 MG TABLET. PO SCH (08:28)
[2021-07-24] MEDS: CITALOPRAM 20 MG TABLET. PO SCH (08:28)
[2021-07-24] MEDS: ASCORBIC ACID 1,000 MG TABLET PO SCH (08:28)
[2021-07-24] MEDS: lamoTRIgine 100 MG TABLET. PO SCH ×2 (08:28→19:39)
[2021-07-24] MEDS: CARBIDOPA/LEVODOPA 25/100MG TABLET PO SCH ×2 (08:28→16:18)
[2021-07-24] MEDS: FAMOTIDINE 20 MG TABLET PO SCH ×2 (08:28→19:39)
[2021-07-24] MEDS: busPIRone 10 MG TABLET. PO SCH ×3 (08:28→19:39)
[2021-07-24] MEDS: FOLIC ACID 1 MG TABLET PO SCH (08:28)
[2021-07-24] MEDS: clonazePAM 0.5 MG TABLET PO SCH ×2 (08:28→19:39)
[2021-07-24] MEDS: ZINC SULFATE 220 MG CAPSULE. PO SCH (08:29)
[2021-07-24] MEDS: LISINOPRIL 5 MG TABLET. PO SCH (08:29)
[2021-07-24] MEDS: QUEtiapine 100 MG TABLET. PO SCH ×2 (13:45→19:39)
[2021-07-24 15:23] VITALS: BP 122/78
[2021-07-24] MEDS: ATORVASTATIN CALCIUM 20 MG TABLET PO SCH (19:39)
--- NOTE | 2021-07-24 22:14 | PDOC ---
Exam Note: Kal Note: Please also refer to the separate dictated note~for this date of service dictated separately.~Patient seen individually. Discussed the patient with Nursing staff reviewed the chart.~Reviewed interim history and current functioning. Reviewed vital signs,~Labs/ Radiology~and current medications noted below. Continue current treatment with the changes noted in the dictated addendum note Assessment: Vital Signs/I&O: Vital Signs Date Time Temp Pulse Resp B/P (MAP) Pulse Ox O2 Delivery O2 Flow Rate FiO2 07/24/21 15:23 97.4 86 20 122/78 (93) 95 07/23/21 06:12 Room Air I & O 07/23/21 07/23/21 07/24/21 15:00 23:00 07:00 Intake Total 840 ml 720 ml Balance 840 ml 720 ml Labs: Laboratory Tests Test 07/24/21 07:42 Glucose (Fingerstick) 114 mg/dL (70-99) H Current Medications: Meds: Laboratory Tests Test 07/24/21 07:42 Glucose (Fingerstick) 114 mg/dL Current Medications Medications (Trade) Dose Ordered Sig/Kaley Route PRN Reason Start Time Stop Time Status Last Admin Dose Admin Ascorbic Acid (Vitamin C) 1,000 mg DAILY PO 06/16/21 09:00 07/24/21 08:28 Aspirin (Aspirin Chewable) 81 mg DAILY PO 06/16/21 09:00 07/24/21 08:27 Atorvastatin Calcium (Lipitor) 20 mg QHS PO 06/15/21 21:00 07/24/21 19:39 Buspirone HCl (Buspar) 20 mg TID PO 06/15/21 21:00 07/24/21 19:39 Carbidopa/Levodopa (Sinemet 25/100) 1 tab [id number] PO 06/16/21 09:00 07/24/21 16:18 Clonazepam (KlonoPIN) 0.5 mg BID PO 06/15/21 21:00 07/24/21 19:39 Famotidine (Pepcid) 20 mg BID PO 06/15/21 21:00 07/24/21 19:39 Folic Acid (Folic Acid) 1 mg DAILY PO 06/16/21 09:00 07/24/21 08:28 Metformin HCl (Glucophage) 1,000 mg DAILYWBKFT PO 06/16/21 08:00 07/24/21 08:27 Quetiapine Fumarate (SEROquel) 50 mg DAILY PO 06/16/21 09:00 07/12/21 07:40 DC 07/11/21 15:00 Quetiapine Fumarate (SEROquel) 100 mg DAILY@1400 PO 06/16/21 14:00 07/24/21 13:45 Citalopram Hydrobromide (CeleXA) 40 mg DAILY PO 06/16/21 09:00 07/24/21 08:28 Guaifenesin (Mucinex Er) 1,200 mg BID PO 06/15/21 21:00 06/17/21 15:45 DC 06/17/21 08:01 Lamotrigine (LaMICtal) 200 mg BID PO 06/15/21 21:00 07/24/21 19:39 Lisinopril (Prinivil) 2.5 mg DAILY PO 06/16/21 09:00 07/24/21 08:29 Quetiapine Fumarate (SEROquel) 300 mg HS PO 06/15/21 21:00 07/24/21 19:39 Zinc Sulfate (Orazinc) 220 mg DAILY PO 06/16/21 09:00 07/24/21 08:29 Acetaminophen (Tylenol) 650 mg PRN Q6HRS PRN PO MILD PAIN / TEMP > 100.3'F 06/15/21 20:00 07/24/21 19:39 Al Hydroxide/Mg Hydroxide (Mylanta Plus Xs) 30 ml PRN AFTMEALHC PRN PO DYSPEPSIA 06/15/21 20:00 Magnesium Hydroxide (Milk Of Magnesia) 2,400 mg PRN QHS PRN PO CONSTIPATION 06/15/21 20:00 Multi-Ingredient Ointment (Analgesic Wilson) 1 erum PRN QID PRN TP MUSCLE PAIN 06/15/21 20:00 Vitamin D (Vitamin D3) 1,000 unit DAILY PO 07/04/21 09:00 07/24/21 08:27 Quetiapine Fumarate (SEROquel) 50 mg DAILY PO 07/12/21 09:00 07/24/21 08:28 I have reviewed the current psychotropics carefully including drug interactions. Risk benefit ratio favors no change other than as noted in my dictated progress note. Diagnosis: Problems: (1) Psychotic disorder (2) Major depressive disorder with psychotic features (3) Anxiety disorder (4) Major depressive disorder, recurrent episode (5) Impulse control disorder LUTHER WARNER MD Jul 24, 2021 22:14
[2021-07-25] MEDS: ACETAMINOPHEN 325 MG TABLET PO PRN ×3 (05:20→20:33)
[2021-07-25 06:06] VITALS: BP 109/72
[2021-07-25 06:34] LABS: BASO % 0 % (0-3); EOS # 0.1 x10^3/uL (0.0-0.7); EOS % 2 % (0-3); HEMATOCRIT 43.1 % (39.0-53.0); HEMOGLOBIN 14.6 g/dL (13.0-17.5); LYMPH % 29 % (24-48); MEAN CORPUSCULAR HEMOGLOBIN 32 pg (25-35); MEAN CORPUSCULAR HGB CONC 34 g/dL (31-37); MEAN CORPUSCULAR VOLUME 93 fL (79-100); MONO # 0.5 x10^3/uL (0.0-1.1); MONO % 7 % (0-9); NEUT # 4.4 x10^3uL (1.8-7.7); NEUT % 62 % (31-73); PLATELET COUNT 169 x10^3/uL (140-400); RED BLOOD COUNT 4.62 x10^6/uL (4.30-5.70); RED CELL DISTRIBUTION WIDTH 13.6 % (11.5-14.5); WHITE BLOOD COUNT 7.1 x10^3/uL (4.0-11.0)
[2021-07-25 06:50] LABS: ALBUMIN 3.8 g/dL (3.4-5.0); ALBUMIN/GLOBULIN RATIO 1.3 (1.0-1.7); CALCIUM 8.6 mg/dL (8.5-10.1); CREATININE 0.8 mg/dL (0.7-1.3); GFR 98.6; POTASSIUM 3.8 mmol/L (3.5-5.1); TOTAL BILIRUBIN 0.6 mg/dL (0.2-1.0); TOTAL PROTEIN 6.7 g/dL (6.4-8.2)
[2021-07-25] MEDS: CHOLECALCIFEROL (VITAMIN D3) 1,000 UNIT TABLET PO SCH (08:37)
[2021-07-25] MEDS: ASPIRIN CHEWABLE 81 MG TABLET. PO SCH (08:37)
[2021-07-25] MEDS: CITALOPRAM 20 MG TABLET. PO SCH (08:37)
[2021-07-25] MEDS: CARBIDOPA/LEVODOPA 25/100MG TABLET PO SCH ×2 (08:37→16:31)
[2021-07-25] MEDS: FAMOTIDINE 20 MG TABLET PO SCH ×2 (08:37→20:33)
[2021-07-25] MEDS: LISINOPRIL 5 MG TABLET. PO SCH (08:38)
[2021-07-25] MEDS: QUEtiapine 50 MG TABLET. PO SCH (08:38)
[2021-07-25] MEDS: ASCORBIC ACID 1,000 MG TABLET PO SCH (08:38)
[2021-07-25] MEDS: ZINC SULFATE 220 MG CAPSULE. PO SCH (08:38)
[2021-07-25] MEDS: FOLIC ACID 1 MG TABLET PO SCH (08:38)
[2021-07-25] MEDS: busPIRone 10 MG TABLET. PO SCH ×3 (08:38→20:33)
[2021-07-25] MEDS: clonazePAM 0.5 MG TABLET PO SCH ×2 (08:38→20:33)
[2021-07-25] MEDS: metFORMIN 500 MG TABLET PO SCH (08:38)
[2021-07-25] MEDS: lamoTRIgine 100 MG TABLET. PO SCH ×2 (08:38→20:33)
--- NOTE | 2021-07-25 08:39 | PDOC ---
Exam Note: Kal Note: This note is a late entry for 07/21/2021 covers elements not covered in my initial note. Subjective: The patient was reviewed at treatment team meeting in the morning on 07/21/2021 with Leah Zhu, Kailee Hines (medical social consultant), Sumi, activity therapy, and Morelia BALLARD, discussed and reviewed the chart. Discussed and reviewed his diagnoses, progress at length. The patient has had no headaches for 2 days according to him. He has attended 6 groups. Reportedly there is going to be a meeting with the residential on 07/22 and the patient is quite excited about this. Review of Systems: Ambulation impaired with walker. No CV, , pulmonary, eye system symptoms on review. Mental Status Exam: The patient is reasonably oriented. As I met with him in his room he was using his kaylie to look into the history channel. Speech coherent. Abstraction fair. Computation impaired. Language function intact. Attention span fair. Mood and affect improved. Laboratory Data: Reviewed. Impression: Major depressive disorder with psychotic features in partial remiss ion. Anxiety disorder unspecified. Plan: No change from initial note. Assessment: Vital Signs/I&O: Vital Signs Date Time Temp Pulse Resp B/P (MAP) Pulse Ox O2 Delivery O2 Flow Rate FiO2 07/25/21 06:06 98.4 72 16 109/72 (84) 93 07/23/21 06:12 Room Air I & O 07/24/21 07/24/21 07/25/21 14:59 22:59 06:59 Intake Total 800 ml 520 ml Balance 800 ml 520 ml Labs: Laboratory Tests Test 07/25/21 06:21 07/25/21 07:39 White Blood Count 7.1 x10^3/uL (4.0-11.0) Red Blood Count 4.62 x10^6/uL (4.30-5.70) Hemoglobin 14.6 g/dL (13.0-17.5) Hematocrit 43.1 % (39.0-53.0) Mean Corpuscular Volume 93 fL (79-100) Mean Corpuscular Hemoglobin 32 pg (25-35) Mean Corpuscular Hemoglobin Concent 34 g/dL (31-37) Red Cell Distribution Width 13.6 % (11.5-14.5) Platelet Count 169 x10^3/uL (140-400) Neutrophils (%) (Auto) 62 % (31-73) Lymphocytes (%) (Auto) 29 % (24-48) Monocytes (%) (Auto) 7 % (0-9) Eosinophils (%) (Auto) 2 % (0-3) Basophils (%) (Auto) 0 % (0-3) Neutrophils # (Auto) 4.4 x10^3uL (1.8-7.7) Lymphocytes # (Auto) 2.0 x10^3/uL (1.0-4.8) Monocytes # (Auto) 0.5 x10^3/uL (0.0-1.1) Eosinophils # (Auto) 0.1 x10^3/uL (0.0-0.7) Basophils # (Auto) 0.0 x10^3/uL (0.0-0.2) Sodium Level 141 mmol/L (136-145) Potassium Level 3.8 mmol/L (3.5-5.1) Chloride Level 106 mmol/L (98-107) Carbon Dioxide Level 29 mmol/L (21-32) Anion Gap 6 (6-14) Blood Urea Nitrogen 13 mg/dL (8-26) Creatinine 0.8 mg/dL (0.7-1.3) Estimated GFR (Cockcroft-Gault) 98.6 BUN/Creatinine Ratio 16 (6-20) Glucose Level 106 mg/dL (70-99) H Calcium Level 8.6 mg/dL (8.5-10.1) Total Bilirubin 0.6 mg/dL (0.2-1.0) Aspartate Amino Transferase (AST) 12 U/L (15-37) L Alanine Aminotransferase (ALT) 27 U/L (16-63) Alkaline Phosphatase 93 U/L (46-116) Total Protein 6.7 g/dL (6.4-8.2) Albumin 3.8 g/dL (3.4-5.0) Albumin/Globulin Ratio 1.3 (1.0-1.7) Glucose (Fingerstick) 103 mg/dL (70-99) H Current Medications: I have reviewed the current psychotropics carefully including drug interactions. Risk benefit ratio favors no change other than as noted in my dictated progress note. Diagnosis: Problems: (1) Psychotic disorder (2) Major depressive disorder with psychotic features (3) Anxiety disorder (4) Major depressive disorder, recurrent episode (5) Impulse control disorder LUTHER WARNER MD Jul 25, 2021 08:39
--- NOTE | 2021-07-25 08:55 | PDOC ---
Exam Note: Kal Note: This note is a late entry for 07/22/2021 covers elements not covered in my initial note. Subjective: The patient was seen individually on 07/22/2021, discussed and reviewed the chart with Philip BALLARD. The patient slept 7-1/2 hours previous night. I met with him in his room. He has been again spending time on kaylie. He was very animated, telling me that a prison had accepted him and he was very pleased with it. No psychotic symptoms, suicidal or homicidal ideation. We discussed discharge plans at some length. Review of Systems: Ambulation impaired with walker. No CV, , pulmonary, eye system symptoms on review. Mental Status Exam: The patient is reasonably oriented. Speech has some latency, coherent. Abstraction fair. Computation impaired. Language function intact. Attention span fair. Mood and affect improved. Laboratory Data: Reviewed. Impression: Major depressive disorder with psychotic features in partial re mission. Anxiety disorder unspecified. Plan: No change from initial note. Assessment: Vital Signs/I&O: Vital Signs Date Time Temp Pulse Resp B/P (MAP) Pulse Ox O2 Delivery O2 Flow Rate FiO2 07/25/21 08:38 72 109/72 07/25/21 06:06 98.4 16 93 07/23/21 06:12 Room Air I & O 07/24/21 07/24/21 07/25/21 14:59 22:59 06:59 Intake Total 800 ml 520 ml Balance 800 ml 520 ml Labs: Laboratory Tests Test 07/25/21 06:21 07/25/21 07:39 White Blood Count 7.1 x10^3/uL (4.0-11.0) Red Blood Count 4.62 x10^6/uL (4.30-5.70) Hemoglobin 14.6 g/dL (13.0-17.5) Hematocrit 43.1 % (39.0-53.0) Mean Corpuscular Volume 93 fL (79-100) Mean Corpuscular Hemoglobin 32 pg (25-35) Mean Corpuscular Hemoglobin Concent 34 g/dL (31-37) Red Cell Distribution Width 13.6 % (11.5-14.5) Platelet Count 169 x10^3/uL (140-400) Neutrophils (%) (Auto) 62 % (31-73) Lymphocytes (%) (Auto) 29 % (24-48) Monocytes (%) (Auto) 7 % (0-9) Eosinophils (%) (Auto) 2 % (0-3) Basophils (%) (Auto) 0 % (0-3) Neutrophils # (Auto) 4.4 x10^3uL (1.8-7.7) Lymphocytes # (Auto) 2.0 x10^3/uL (1.0-4.8) Monocytes # (Auto) 0.5 x10^3/uL (0.0-1.1) Eosinophils # (Auto) 0.1 x10^3/uL (0.0-0.7) Basophils # (Auto) 0.0 x10^3/uL (0.0-0.2) Sodium Level 141 mmol/L (136-145) Potassium Level 3.8 mmol/L (3.5-5.1) Chloride Level 106 mmol/L (98-107) Carbon Dioxide Level 29 mmol/L (21-32) Anion Gap 6 (6-14) Blood Urea Nitrogen 13 mg/dL (8-26) Creatinine 0.8 mg/dL (0.7-1.3) Estimated GFR (Cockcroft-Gault) 98.6 BUN/Creatinine Ratio 16 (6-20) Glucose Level 106 mg/dL (70-99) H Calcium Level 8.6 mg/dL (8.5-10.1) Total Bilirubin 0.6 mg/dL (0.2-1.0) Aspartate Amino Transferase (AST) 12 U/L (15-37) L Alanine Aminotransferase (ALT) 27 U/L (16-63) Alkaline Phosphatase 93 U/L (46-116) Total Protein 6.7 g/dL (6.4-8.2) Albumin 3.8 g/dL (3.4-5.0) Albumin/Globulin Ratio 1.3 (1.0-1.7) Glucose (Fingerstick) 103 mg/dL (70-99) H Current Medications: I have reviewed the current psychotropics carefully including drug interactions. Risk benefit ratio favors no change other than as noted in my dictated progress note. Diagnosis: Problems: (1) Psychotic disorder (2) Major depressive disorder with psychotic features (3) Anxiety disorder (4) Major depressive disorder, recurrent episode (5) Impulse control disorder LUTHER WARNER MD Jul 25, 2021 08:55
--- NOTE | 2021-07-25 09:17 | PDOC ---
Exam Note: Kal Note: This note is a late entry for 07/23/2021 covers elements not covered in my initial note. Subjective: The patient was seen individually on 07/23/2021, discussed and reviewed the chart with Sabiha BALLARD. The patient slept 7-3/4 hours previous night. He was watching a [place] replay on YouTube and seemed quite animated and expressive in his presentation. No psychotic symptoms, suicidal or homicidal ideation. Review of Systems: Ambulation impaired with walker. No CV, , pulmonary, eye system symptoms on review. Mental Status Exam: The patient is reasonably oriented. Speech has some latency, coherent. Abstraction fair. Computation impaired. Language function intact. Attention span fair. Mood and affect improved. Laboratory Data: Reviewed. Impression: Major depressive disorder with psychotic features in partial remission. Anxiety disorder unspecified. Plan: No change from initial note. Assessment: Vital Signs/I&O: Vital Signs Date Time Temp Pulse Resp B/P (MAP) Pulse Ox O2 Delivery O2 Flow Rate FiO2 07/25/21 08:38 72 109/72 07/25/21 06:06 98.4 16 93 07/23/21 06:12 Room Air I & O 07/24/21 07/24/21 07/25/21 15:00 23:00 07:00 Intake Total 800 ml 520 ml Balance 800 ml 520 ml Labs: Laboratory Tests Test 07/25/21 06:21 07/25/21 07:39 White Blood Count 7.1 x10^3/uL (4.0-11.0) Red Blood Count 4.62 x10^6/uL (4.30-5.70) Hemoglobin 14.6 g/dL (13.0-17.5) Hematocrit 43.1 % (39.0-53.0) Mean Corpuscular Volume 93 fL (79-100) Mean Corpuscular Hemoglobin 32 pg (25-35) Mean Corpuscular Hemoglobin Concent 34 g/dL (31-37) Red Cell Distribution Width 13.6 % (11.5-14.5) Platelet Count 169 x10^3/uL (140-400) Neutrophils (%) (Auto) 62 % (31-73) Lymphocytes (%) (Auto) 29 % (24-48) Monocytes (%) (Auto) 7 % (0-9) Eosinophils (%) (Auto) 2 % (0-3) Basophils (%) (Auto) 0 % (0-3) Neutrophils # (Auto) 4.4 x10^3uL (1.8-7.7) Lymphocytes # (Auto) 2.0 x10^3/uL (1.0-4.8) Monocytes # (Auto) 0.5 x10^3/uL (0.0-1.1) Eosinophils # (Auto) 0.1 x10^3/uL (0.0-0.7) Basophils # (Auto) 0.0 x10^3/uL (0.0-0.2) Sodium Level 141 mmol/L (136-145) Potassium Level 3.8 mmol/L (3.5-5.1) Chloride Level 106 mmol/L (98-107) Carbon Dioxide Level 29 mmol/L (21-32) Anion Gap 6 (6-14) Blood Urea Nitrogen 13 mg/dL (8-26) Creatinine 0.8 mg/dL (0.7-1.3) Estimated GFR (Cockcroft-Gault) 98.6 BUN/Creatinine Ratio 16 (6-20) Glucose Level 106 mg/dL (70-99) H Calcium Level 8.6 mg/dL (8.5-10.1) Total Bilirubin 0.6 mg/dL (0.2-1.0) Aspartate Amino Transferase (AST) 12 U/L (15-37) L Alanine Aminotransferase (ALT) 27 U/L (16-63) Alkaline Phosphatase 93 U/L (46-116) Total Protein 6.7 g/dL (6.4-8.2) Albumin 3.8 g/dL (3.4-5.0) Albumin/Globulin Ratio 1.3 (1.0-1.7) Glucose (Fingerstick) 103 mg/dL (70-99) H Current Medications: I have reviewed the current psychotropics carefully including drug interactions. Risk benefit ratio favors no change other than as noted in my dictated progress note. Diagnosis: Problems: (1) Psychotic disorder (2) Major depressive disorder with psychotic features (3) Anxiety disorder (4) Major depressive disorder, recurrent episode (5) Impulse control disorder LUTHER WARNER MD Jul 25, 2021 09:17
--- NOTE | 2021-07-25 09:26 | PDOC ---
Exam Note: Kal Note: This note is a late entry for 07/24/2021 covers elements not covered in my initial note. Subjective: The patient was seen individually on 07/24/2021, discussed and reviewed the chart with Teetee BALLARD. The patient slept 7-1/4 hours previous night. Overall he talked to me during the individual visit today that he will not be able to afford the extra expenses of being at the assisted living since they wanted him to pay extra further cable television and any diapers he may use and for his laundry. He states he only gets $62 a month that he has left over after expenses and not enough to pay for this and his was going to follow up with Leah, social service technician tomorrow on this. As I met with him in his room he was again watching a channel of history of water on history channel. He remains quite involved with all of this. Review of Systems: Ambulation impaired with walker. No CV, , pulmonary, eye system symptoms on review. Mental Status Exam: The patient is reasonably oriented. Speech has some latency, coherent. Abstraction fair. Computation impaired. Language function intact. Attention span fair. Mood and affect improved. Laboratory Data: Reviewed. Impression: Major depressive disorder with psychotic features in partial remission. Anxiety disorder unspecified. Plan: No change from initial note. Assessment: Vital Signs/I&O: Vital Signs Date Time Temp Pulse Resp B/P (MAP) Pulse Ox O2 Delivery O2 Flow Rate FiO2 07/25/21 08:38 72 109/72 07/25/21 06:06 98.4 16 93 07/23/21 06:12 Room Air I & O 07/24/21 07/24/21 07/25/21 15:00 23:00 07:00 Intake Total 800 ml 520 ml Balance 800 ml 520 ml Labs: Laboratory Tests Test 07/25/21 06:21 07/25/21 07:39 White Blood Count 7.1 x10^3/uL (4.0-11.0) Red Blood Count 4.62 x10^6/uL (4.30-5.70) Hemoglobin 14.6 g/dL (13.0-17.5) Hematocrit 43.1 % (39.0-53.0) Mean Corpuscular Volume 93 fL (79-100) Mean Corpuscular Hemoglobin 32 pg (25-35) Mean Corpuscular Hemoglobin Concent 34 g/dL (31-37) Red Cell Distribution Width 13.6 % (11.5-14.5) Platelet Count 169 x10^3/uL (140-400) Neutrophils (%) (Auto) 62 % (31-73) Lymphocytes (%) (Auto) 29 % (24-48) Monocytes (%) (Auto) 7 % (0-9) Eosinophils (%) (Auto) 2 % (0-3) Basophils (%) (Auto) 0 % (0-3) Neutrophils # (Auto) 4.4 x10^3uL (1.8-7.7) Lymphocytes # (Auto) 2.0 x10^3/uL (1.0-4.8) Monocytes # (Auto) 0.5 x10^3/uL (0.0-1.1) Eosinophils # (Auto) 0.1 x10^3/uL (0.0-0.7) Basophils # (Auto) 0.0 x10^3/uL (0.0-0.2) Sodium Level 141 mmol/L (136-145) Potassium Level 3.8 mmol/L (3.5-5.1) Chloride Level 106 mmol/L (98-107) Carbon Dioxide Level 29 mmol/L (21-32) Anion Gap 6 (6-14) Blood Urea Nitrogen 13 mg/dL (8-26) Creatinine 0.8 mg/dL (0.7-1.3) Estimated GFR (Cockcroft-Gault) 98.6 BUN/Creatinine Ratio 16 (6-20) Glucose Level 106 mg/dL (70-99) H Calcium Level 8.6 mg/dL (8.5-10.1) Total Bilirubin 0.6 mg/dL (0.2-1.0) Aspartate Amino Transferase (AST) 12 U/L (15-37) L Alanine Aminotransferase (ALT) 27 U/L (16-63) Alkaline Phosphatase 93 U/L (46-116) Total Protein 6.7 g/dL (6.4-8.2) Albumin 3.8 g/dL (3.4-5.0) Albumin/Globulin Ratio 1.3 (1.0-1.7) Glucose (Fingerstick) 103 mg/dL (70-99) H Current Medications: I have reviewed the current psychotropics carefully including drug interactions. Risk benefit ratio favors no change other than as noted in my dictated progress note. Diagnosis: Problems: (1) Psychotic disorder (2) Major depressive disorder with psychotic features (3) Anxiety disorder (4) Major depressive disorder, recurrent episode (5) Impulse control disorder LUTHER WARNER MD Jul 25, 2021 09:26
[2021-07-25] MEDS: QUEtiapine 100 MG TABLET. PO SCH ×2 (14:12→20:33)
[2021-07-25 15:55] VITALS: BP 121/74
[2021-07-25] MEDS: ATORVASTATIN CALCIUM 20 MG TABLET PO SCH (20:33)
[2021-07-25] MEDS ORDERED: ACET325T21 PO (21:45)
[2021-07-25] MEDS ORDERED: CHOL10004 PO (21:45)
[2021-07-25] MEDS ORDERED: MAG-115 PO (21:46)
[2021-07-25] MEDS ORDERED: MAGN24003 PO (21:46)
[2021-07-25] MEDS ORDERED: CITA40TA6 PO (21:46)
[2021-07-25] MEDS ORDERED: MENT1ADH29 TP (21:47)
--- NOTE | 2021-07-25 22:00 | PDOC ---
Exam Note: Kal Note: Please also refer to the separate dictated note~for this date of service dictated separately.~Patient seen individually. Discussed the patient with Nursing staff reviewed the chart.~Reviewed interim history and current functioning. Reviewed vital signs,~Labs/ Radiology~and current medications noted below. Continue current treatment with the changes noted in the dictated addendum note Assessment: Vital Signs/I&O: Vital Signs Date Time Temp Pulse Resp B/P (MAP) Pulse Ox O2 Delivery O2 Flow Rate FiO2 07/25/21 15:55 98.1 89 18 121/74 (90) 95 07/23/21 06:12 Room Air I & O 07/24/21 07/24/21 07/25/21 14:59 22:59 06:59 Intake Total 800 ml 520 ml Balance 800 ml 520 ml Labs: Laboratory Tests Test 07/25/21 06:21 07/25/21 07:39 White Blood Count 7.1 x10^3/uL (4.0-11.0) Red Blood Count 4.62 x10^6/uL (4.30-5.70) Hemoglobin 14.6 g/dL (13.0-17.5) Hematocrit 43.1 % (39.0-53.0) Mean Corpuscular Volume 93 fL (79-100) Mean Corpuscular Hemoglobin 32 pg (25-35) Mean Corpuscular Hemoglobin Concent 34 g/dL (31-37) Red Cell Distribution Width 13.6 % (11.5-14.5) Platelet Count 169 x10^3/uL (140-400) Neutrophils (%) (Auto) 62 % (31-73) Lymphocytes (%) (Auto) 29 % (24-48) Monocytes (%) (Auto) 7 % (0-9) Eosinophils (%) (Auto) 2 % (0-3) Basophils (%) (Auto) 0 % (0-3) Neutrophils # (Auto) 4.4 x10^3uL (1.8-7.7) Lymphocytes # (Auto) 2.0 x10^3/uL (1.0-4.8) Monocytes # (Auto) 0.5 x10^3/uL (0.0-1.1) Eosinophils # (Auto) 0.1 x10^3/uL (0.0-0.7) Basophils # (Auto) 0.0 x10^3/uL (0.0-0.2) Sodium Level 141 mmol/L (136-145) Potassium Level 3.8 mmol/L (3.5-5.1) Chloride Level 106 mmol/L (98-107) Carbon Dioxide Level 29 mmol/L (21-32) Anion Gap 6 (6-14) Blood Urea Nitrogen 13 mg/dL (8-26) Creatinine 0.8 mg/dL (0.7-1.3) Estimated GFR (Cockcroft-Gault) 98.6 BUN/Creatinine Ratio 16 (6-20) Glucose Level 106 mg/dL (70-99) H Calcium Level 8.6 mg/dL (8.5-10.1) Total Bilirubin 0.6 mg/dL (0.2-1.0) Aspartate Amino Transferase (AST) 12 U/L (15-37) L Alanine Aminotransferase (ALT) 27 U/L (16-63) Alkaline Phosphatase 93 U/L (46-116) Total Protein 6.7 g/dL (6.4-8.2) Albumin 3.8 g/dL (3.4-5.0) Albumin/Globulin Ratio 1.3 (1.0-1.7) Glucose (Fingerstick) 103 mg/dL (70-99) H Current Medications: Meds: Laboratory Tests Test 07/25/21 06:21 07/25/21 07:39 White Blood Count 7.1 x10^3/uL Red Blood Count 4.62 x10^6/uL Hemoglobin 14.6 g/dL Hematocrit 43.1 % Mean Corpuscular Volume 93 fL Mean Corpuscular Hemoglobin 32 pg Mean Corpuscular Hemoglobin Concent 34 g/dL Red Cell Distribution Width 13.6 % Platelet Count 169 x10^3/uL Neutrophils (%) (Auto) 62 % Lymphocytes (%) (Auto) 29 % Monocytes (%) (Auto) 7 % Eosinophils (%) (Auto) 2 % Basophils (%) (Auto) 0 % Neutrophils # (Auto) 4.4 x10^3uL Lymphocytes # (Auto) 2.0 x10^3/uL Monocytes # (Auto) 0.5 x10^3/uL Eosinophils # (Auto) 0.1 x10^3/uL Basophils # (Auto) 0.0 x10^3/uL Sodium Level 141 mmol/L Potassium Level 3.8 mmol/L Chloride Level 106 mmol/L Carbon Dioxide Level 29 mmol/L Anion Gap 6 Blood Urea Nitrogen 13 mg/dL Creatinine 0.8 mg/dL Estimated GFR (Cockcroft-Gault) 98.6 BUN/Creatinine Ratio 16 Glucose Level 106 mg/dL Calcium Level 8.6 mg/dL Total Bilirubin 0.6 mg/dL Aspartate Amino Transf (AST/SGOT) 12 U/L Alanine Aminotransferase (ALT/SGPT) 27 U/L Alkaline Phosphatase 93 U/L Total Protein 6.7 g/dL Albumin 3.8 g/dL Albumin/Globulin Ratio 1.3 Glucose (Fingerstick) 103 mg/dL Current Medications Medications (Trade) Dose Ordered Sig/Kaley Route PRN Reason Start Time Stop Time Status Last Admin Dose Admin Ascorbic Acid (Vitamin C) 1,000 mg DAILY PO 06/16/21 09:00 07/25/21 08:38 Aspirin (Aspirin Chewable) 81 mg DAILY PO 06/16/21 09:00 07/25/21 08:37 Atorvastatin Calcium (Lipitor) 20 mg QHS PO 06/15/21 21:00 07/25/21 20:33 Buspirone HCl (Buspar) 20 mg TID PO 06/15/21 21:00 07/25/21 20:33 Carbidopa/Levodopa (Sinemet 25/100) 1 tab [id number] PO 06/16/21 09:00 07/25/21 16:31 Clonazepam (KlonoPIN) 0.5 mg BID PO 06/15/21 21:00 07/25/21 20:33 Famotidine (Pepcid) 20 mg BID PO 06/15/21 21:00 07/25/21 20:33 Folic Acid (Folic Acid) 1 mg DAILY PO 06/16/21 09:00 07/25/21 08:38 Metformin HCl (Glucophage) 1,000 mg DAILYWBKFT PO 06/16/21 08:00 07/25/21 08:38 Quetiapine Fumarate (SEROquel) 50 mg DAILY PO 06/16/21 09:00 07/12/21 07:40 DC 07/11/21 15:00 Quetiapine Fumarate (SEROquel) 100 mg DAILY@1400 PO 06/16/21 14:00 07/25/21 14:12 Citalopram Hydrobromide (CeleXA) 40 mg DAILY PO 06/16/21 09:00 07/25/21 08:37 Guaifenesin (Mucinex Er) 1,200 mg BID PO 06/15/21 21:00 06/17/21 15:45 DC 06/17/21 08:01 Lamotrigine (LaMICtal) 200 mg BID PO 06/15/21 21:00 07/25/21 20:33 Lisinopril (Prinivil) 2.5 mg DAILY PO 06/16/21 09:00 07/25/21 08:38 Quetiapine Fumarate (SEROquel) 300 mg HS PO 06/15/21 21:00 07/25/21 20:33 Zinc Sulfate (Orazinc) 220 mg DAILY PO 06/16/21 09:00 07/25/21 08:38 Acetaminophen (Tylenol) 650 mg PRN Q6HRS PRN PO MILD PAIN / TEMP > 100.3'F 06/15/21 20:00 07/25/21 20:33 Al Hydroxide/Mg Hydroxide (Mylanta Plus Xs) 30 ml PRN AFTMEALHC PRN PO DYSPEPSIA 06/15/21 20:00 Magnesium Hydroxide (Milk Of Magnesia) 2,400 mg PRN QHS PRN PO CONSTIPATION 06/15/21 20:00 Multi-Ingredient Ointment (Analgesic [place]) 1 erum PRN QID PRN TP MUSCLE PAIN 06/15/21 20:00 Vitamin D (Vitamin D3) 1,000 unit DAILY PO 07/04/21 09:00 07/25/21 08:37 Quetiapine Fumarate (SEROquel) 50 mg DAILY PO 07/12/21 09:00 07/25/21 08:38 I have reviewed the current psychotropics carefully including drug interactions. Risk benefit ratio favors no change other than as noted in my dictated progress note. Diagnosis: Problems: (1) Psychotic disorder (2) Major depressive disorder with psychotic features (3) Anxiety disorder (4) Major depressive disorder, recurrent episode (5) Impulse control disorder LUTHER WARNER MD Jul 25, 2021 22:00
[2021-07-26 06:12] VITALS: BP 143/87
[2021-07-26] MEDS: ASCORBIC ACID 1,000 MG TABLET PO SCH (07:49)
[2021-07-26] MEDS: busPIRone 10 MG TABLET. PO SCH (07:49)
[2021-07-26] MEDS: CHOLECALCIFEROL (VITAMIN D3) 1,000 UNIT TABLET PO SCH (07:49)
[2021-07-26] MEDS: metFORMIN 500 MG TABLET PO SCH (07:49)
[2021-07-26] MEDS: lamoTRIgine 100 MG TABLET. PO SCH (07:49)
[2021-07-26] MEDS: QUEtiapine 50 MG TABLET. PO SCH (07:49)
[2021-07-26] MEDS: CITALOPRAM 20 MG TABLET. PO SCH (07:49)
[2021-07-26] MEDS: ASPIRIN CHEWABLE 81 MG TABLET. PO SCH (07:49)
[2021-07-26] MEDS: CARBIDOPA/LEVODOPA 25/100MG TABLET PO SCH (07:49)
[2021-07-26 07:50] VITALS: BP 143/87
[2021-07-26] MEDS: clonazePAM 0.5 MG TABLET PO SCH (07:50)
[2021-07-26] MEDS: FOLIC ACID 1 MG TABLET PO SCH (07:50)
[2021-07-26] MEDS: LISINOPRIL 5 MG TABLET. PO SCH (07:50)
[2021-07-26] MEDS: ZINC SULFATE 220 MG CAPSULE. PO SCH (07:50)
[2021-07-26] MEDS: FAMOTIDINE 20 MG TABLET PO SCH (07:50)
[2021-07-26] MEDS: ACETAMINOPHEN 325 MG TABLET PO PRN (07:51)
[2021-07-26] MEDS ORDERED: ZINC220C5 PO (09:50)
--- NOTE | 2021-07-26 19:43 | DS ---
DATE OF DISCHARGE: 07/26/2021 DISCHARGE SUMMARY/PSYCHIATRIC PROGRESS NOTE Admitted on 06/04/2021, discharged on 07/26/[address] Bey. This note covers elements not covered in my initial note, 07/26/2021. REASON FOR ADMISSION: Please refer to the admission history for details. Briefly, the patient is a 61-year-old male who returns back to us from one of many psychiatric hospitalizations with and multiple other inpatient psychiatric hospitalizations including several recently on account of psychosis and suicidal ideation. This is within the context of his Parkinson's disease and a diagnosis of major depressive disorder with psychotic features. He did turn positive for COVID-19 screening, was transferred to the medical-surgical floor and returned back to us on 06/15. His hospitalization was inordinately prolonged due to the COVID restrictions and quarantine requirements instituted on the unit due to COVID exposure and difficulty finding placement despite significant efforts by social service staff. SIGNIFICANT FINDINGS AND CLINICAL COURSE: Following admission, the patient was seen daily individually by myself from a psychiatric standpoint, medical followup Dr. Nugent/Dr. Toth. The patient had intermittent psychosis and fleeting suicidal ideation at initial admission. Adjustments were made in his psychotropics. Gradually mood appeared. He denied psychosis and suicidal ideation for an extended period of time prior to placement being finally obtained for him. He seemed to be stabilized on a combination of BuSpar 20 mg 3 times a day, Klonopin 0.5 mg b.i.d., Lamictal 200 mg b.i.d., Seroquel 300 mg at bedtime, 50 mg daily, and 100 mg at 1400, Celexa 40 mg a day and he was on Sinemet 25/100 b.i.d. for his Parkinson's. REVIEW OF SYSTEMS: Prior to discharge, no CV, , pulmonary, eye system symptoms on review. Gait somewhat unsteady due to his Parkinson's and he uses a walker. MENTAL STATUS EXAMINATION: Alert, oriented, cooperative. He was pleasant, verbal, interactive. No psychosis, no suicidal ideation. Mood appeared improved. FINAL DIAGNOSES: Major depressive disorder with psychotic features, history of psychotic disorder, unspecified; anxiety disorder, unspecified. Rest unchanged from admission. DISCHARGE MEDICATIONS: Please refer to the MRAD. DISCHARGE INSTRUCTIONS: [facility]. ALMA DELIA/JALEEL/KAMINI DR: Axel TID: [id number]
--- NOTE | 2021-07-26 21:35 | PDOC ---
Exam Note: Kal Note: Please also refer to the separate dictated note~for this date of service dictated separately.~Patient seen individually. Discussed the patient with Nursing staff reviewed the chart.~Reviewed interim history and current functioning. Reviewed vital signs,~Labs/ Radiology~and current medications noted below. Continue current treatment with the changes noted in the dictated addendum note Assessment: Vital Signs/I&O: Vital Signs Date Time Temp Pulse Resp B/P (MAP) Pulse Ox O2 Delivery O2 Flow Rate FiO2 07/26/21 07:50 81 143/87 07/26/21 06:12 98.1 16 95 07/23/21 06:12 Room Air I & O 07/25/21 07/25/21 07/26/21 15:00 23:00 07:00 Intake Total 720 ml 360 ml Balance 720 ml 360 ml Labs: Laboratory Tests Test 07/26/21 07:41 Glucose (Fingerstick) 138 mg/dL (70-99) H Current Medications: Meds: Laboratory Tests Test 07/26/21 07:41 Glucose (Fingerstick) 138 mg/dL Current Medications Medications (Trade) Dose Ordered Sig/Kaley Route PRN Reason Start Time Stop Time Status Last Admin Dose Admin Ascorbic Acid (Vitamin C) 1,000 mg DAILY PO 06/16/21 09:00 07/26/21 12:34 DC 07/26/21 07:49 Aspirin (Aspirin Chewable) 81 mg DAILY PO 06/16/21 09:00 07/26/21 12:34 DC 07/26/21 07:49 Atorvastatin Calcium (Lipitor) 20 mg QHS PO 06/15/21 21:00 07/26/21 12:34 DC 07/25/21 20:33 Buspirone HCl (Buspar) 20 mg TID PO 06/15/21 21:00 07/26/21 12:34 DC 07/26/21 07:49 Carbidopa/Levodopa (Sinemet 25/100) 1 tab [id number] PO 06/16/21 09:00 07/26/21 12:34 DC 07/26/21 07:49 Clonazepam (KlonoPIN) 0.5 mg BID PO 06/15/21 21:00 07/26/21 12:34 DC 07/26/21 07:50 Famotidine (Pepcid) 20 mg BID PO 06/15/21 21:00 07/26/21 12:34 DC 07/26/21 07:50 Folic Acid (Folic Acid) 1 mg DAILY PO 06/16/21 09:00 07/26/21 12:34 DC 07/26/21 07:50 Metformin HCl (Glucophage) 1,000 mg DAILYWBKFT PO 06/16/21 08:00 07/26/21 12:34 DC 07/26/21 07:49 Quetiapine Fumarate (SEROquel) 50 mg DAILY PO 06/16/21 09:00 07/12/21 07:40 DC 07/11/21 15:00 Quetiapine Fumarate (SEROquel) 100 mg DAILY@1400 PO 06/16/21 14:00 07/26/21 12:34 DC 07/25/21 14:12 Citalopram Hydrobromide (CeleXA) 40 mg DAILY PO 06/16/21 09:00 07/26/21 12:34 DC 07/26/21 07:49 Guaifenesin (Mucinex Er) 1,200 mg BID PO 06/15/21 21:00 06/17/21 15:45 DC 06/17/21 08:01 Lamotrigine (LaMICtal) 200 mg BID PO 06/15/21 21:00 07/26/21 12:34 DC 07/26/21 07:49 Lisinopril (Prinivil) 2.5 mg DAILY PO 06/16/21 09:00 07/26/21 12:34 DC 07/26/21 07:50 Quetiapine Fumarate (SEROquel) 300 mg HS PO 06/15/21 21:00 07/26/21 12:34 DC 07/25/21 20:33 Zinc Sulfate (Orazinc) 220 mg DAILY PO 06/16/21 09:00 07/26/21 12:34 DC 07/26/21 07:50 Acetaminophen (Tylenol) 650 mg PRN Q6HRS PRN PO MILD PAIN / TEMP > 100.3'F 06/15/21 20:00 07/26/21 12:34 DC 07/26/21 07:51 Al Hydroxide/Mg Hydroxide (Mylanta Plus Xs) 30 ml PRN AFTMEALHC PRN PO DYSPEPSIA 06/15/21 20:00 07/26/21 12:34 DC Magnesium Hydroxide (Milk Of Magnesia) 2,400 mg PRN QHS PRN PO CONSTIPATION 06/15/21 20:00 07/26/21 12:34 DC Multi-Ingredient Ointment (Analgesic [place]) 1 erum PRN QID PRN TP MUSCLE PAIN 06/15/21 20:00 07/26/21 12:34 DC Vitamin D (Vitamin D3) 1,000 unit DAILY PO 07/04/21 09:00 07/26/21 12:34 DC 07/26/21 07:49 Quetiapine Fumarate (SEROquel) 50 mg DAILY PO 07/12/21 09:00 07/26/21 12:34 DC 07/26/21 07:49 I have reviewed the current psychotropics carefully including drug interactions. Risk benefit ratio favors no change other than as noted in my dictated progress note. Diagnosis: Problems: (1) Major depressive disorder with psychotic features (2) Psychotic disorder (3) Anxiety disorder (4) Impulse control disorder ULTHER WARNER MD Jul 26, 2021 21:35
--- NOTE | 2021-07-27 07:02 | PDOC ---
Exam Note: Kal Note: This note is a late entry for 07/25/2021 covers elements not covered in my initial note. Subjective: The patient was seen individually on 07/25/2021, discussed and reviewed the chart with Teetee BALLARD. The patient slept 7-1/4 hours previous night. Overall the patient is doing the same. Denies psychotic symptoms, suicidal or homicidal ideation. I met with him in his room. He was watching History of water and does seem quite engaged with all of this. Review of Systems: Ambulation impaired with walker. No CV, , pulmonary, eye system symptoms on review. Mental Status Exam: The patient is reasonably oriented. He is fairly attentive, smiling as I met with him. Speech has some latency, coherent. Abstraction fair. Computation impaired. Language function intact. Attention span fair. Mood and affect improved. No clear psychotic symptoms, suicidal or homicidal ideation. Laboratory Data: Reviewed. Impression: Major depressive disorder with psychotic features in partial remission. Anxiety disorder unspecified. Plan: No change from initial note. Plan is to transition him to [facility] on 07/26/2021. Assessment: Vital Signs/I&O: Vital Signs Date Time Temp Pulse Resp B/P (MAP) Pulse Ox O2 Delivery O2 Flow Rate FiO2 07/26/21 07:50 81 143/87 07/26/21 06:12 98.1 16 95 07/23/21 06:12 Room Air I & O 07/26/21 07/26/21 07/27/21 15:00 23:00 07:00 Intake Total 360 ml Balance 360 ml Labs: Laboratory Tests Test 07/26/21 07:41 Glucose (Fingerstick) 138 mg/dL (70-99) H Current Medications: I have reviewed the current psychotropics carefully including drug interactions. Risk benefit ratio favors no change other than as noted in my dictated progress note. Diagnosis: Problems: (1) Psychotic disorder (2) Major depressive disorder with psychotic features (3) Anxiety disorder (4) Major depressive disorder, recurrent episode (5) Impulse control disorder LUTHER WARNER MD Jul 27, 2021 07:02
== END 2021-07-26 11:30 | DRG 885 ==
LOC: GEROPSY 15:30
PROVIDERS: ADMIT Psychiatry & Neurology Psychiatry; ATTEND Psychiatry & Neurology Psychiatry
DX: F33.3 Major depressive disorder, recurrent, severe with psychotic symptoms (principal); R45.851 Suicidal ideations; F02.81 Dementia in other diseases classified elsewhere, unspecified severity, with behavioral disturbance; E11.9 Type 2 diabetes mellitus without complications; F02.80 Dementia in other diseases classified elsewhere, unspecified severity, without behavioral disturbance, psychotic disturbance, mood disturbance, and anxiety; F41.9 Anxiety disorder, unspecified; F63.9 Impulse disorder, unspecified; G20 Parkinson's disease; I10 Essential (primary) hypertension; K21.9 Gastro-esophageal reflux disease without esophagitis; Z66 Do not resuscitate; Z79.899 Other long term (current) drug therapy; Z86.16 Personal history of COVID-19; Z86.2 Personal history of diseases of the blood and blood-forming organs and certain disorders involving the immune mechanism
CPT/HCPCS: 36415; 80053; 82947; 83735; 85025; 85379